=== PATIENT | female | born 1970 | race Caucasian/White ===

== ENCOUNTER → 2016-10-22 | Outpatient (CLI) | payer MEDICAID ==
[~2016-10-22] MED LIST: ALBU2.5V4 IH; ALBU8.5H2 IH; ALBU8.5H4 IH; ALPR-557 PO; AMIT50TA3 PO; AMLO5TAB4 PO; ASP81TEC PO; BSP10T; BSP10T PO; BUDE10.2 INH; CETI10TA17 PO; CLON0.1T PO; CPR500T PO; CYCL10TA9 PO; FAMO20TA5 PO; FLUT1DIS27 IH; HCTZ12.5T GT; HYDR118S10 PO; HYOS0.1216 PO; IBUP-30 PO; KCL20TCR PO; LISI1TAB10; LISI20TA PO; LISI40TA PO; LORA10TA7 PO; MELO-195 PO; MONT10TA24 PO; OMEP20CA12 PO; OXYC-471 PO; PANT40TA3 PO; PNT40TEC PO; PRED20TA PO; QUET200T2 PO; QUET300T3; RT-ALBUINH IH; RT-ALBUINH INH; TOPI50TA13 PO; TRAZ100T92 PO; VENL75CA93 PO; VNL75T; VNL75T PO
[2016-10-22 08:54] LABS: ALBUMIN 4.1 G/DL (3.2-4.5); BILIRUBIN,TOTAL 0.4 MG/DL (0.1-1.0); CALCIUM 9.2 MG/DL (8.5-10.1); CREATININE SERUM 1.07 MG/DL (0.60-1.30); POTASSIUM 4.3 MMOL/L (3.6-5.0); TOTAL PROTEIN 6.4 G/DL (6.4-8.2)
== END ==
LOC: LAB 08:22
PROVIDERS: ATTEND Physician Assistant
DX: I25.10 Atherosclerotic heart disease of native coronary artery without angina pectoris (principal); I10 Essential (primary) hypertension; E78.2 Mixed hyperlipidemia
CPT/HCPCS: 36415; 80053; 80061

== ENCOUNTER 2016-11-20 12:34 | Emergency (ER) | payer MEDICAID ==
[~2016-11-20] VITALS: Ht 165.1 cm; Wt 65.8 kg
[~2016-11-20 12:34] MED LIST changes: -LISI1TAB10
--- NOTE | 2016-11-20 12:57 | ED General ---
General Stated Complaint: AMS Source of Information: Patient, EMS History of Present Illness Time Seen by Provider: 12:45 Initial Comments The patient is a 46-year-old white female who had been diagnosed as hypertensive by [facility]. She had apparently taken her first dose of lisinopril this morning and now is noted to have decreased level of consciousness, hypertension and slow mentation. She did respond to glabellar noxious stimuli and was able then to tell me that today was . Timing/Duration: 4-6 Hours Associated Systoms: Weakness Allergies and Home Medications Allergies Coded Allergies: nicotine (Unverified Allergy, Intermediate, HIVES, ITCHING, RASH AROUND PATCH, 05/30/10) Penicillins (Verified Allergy, Unknown, 10/16/09) acetaminophen (Verified Allergy, Unknown, 10/16/09) bupropion (Verified Allergy, Unknown, 10/16/09) cephalexin (Verified Allergy, Unknown, 10/16/09) codeine (Verified Allergy, Unknown, 10/16/09) morphine (Verified Allergy, Unknown, 11/20/16) sertraline (Verified Allergy, Unknown, 10/16/09) Home Medications Albuterol Sulfate 8.5 Gm Hfa.aer.ad 2 PUFF INH Q4H PRN PRN SHORTNESS OF BREATH ( Reported) Albuterol Sulfate 2.5 Mg/3 Ml Vial.neb 2.5 MG IH Q6H PRN PRN SHORTNESS OF BREATH (Reported) Amlodipine Besylate 5 Mg Tablet #30 5 MG PO DAILY Prescribed by: ERROL MARCOS on 01/18/16 1217 Budesonide/Formoterol Fumarate 10.2 Gm Hfa.aer.ad 2 PUFF INH BID (Reported) Cetirizine HCl 10 Mg Tablet 10 MG PO DAILY PRN PRN ALLERGIES (Reported) Cyclobenzaprine HCl 10 Mg Tablet 10 MG PO TID (Reported) Ibuprofen 200 Mg Tablet 800 MG PO TID PRN PRN PAIN (Reported) TAKES 4 (200MG) TABLETS Lisinopril 40 Mg Tablet 20 MG PO DAILY (Reported) TAKES 1/2 (40MG) TABLET Lisinopril/Hydrochlorothiazide 1 Each Tablet #30 (Reported) Montelukast Sodium 10 Mg Tablet 10 MG PO DAILY (Reported) Oxycodone HCl/Acetaminophen 1 Each Tablet 1 TAB PO BID (Reported) Pantoprazole Sodium 40 Mg Tablet.dr 40 MG PO DAILY (Reported) Topiramate 50 Mg Tablet 50 MG PO DAILY (Reported) Trazodone HCl 100 Mg Tablet 100 MG PO HS PRN PRN SLEEP (Reported) Venlafaxine HCl 75 Mg Cap.er.24h 75 MG PO DAILY (Reported) TAKE WITH FOOD Constitutional: see HPI EENTM: no symptoms reported Respiratory: no symptoms reported Cardiovascular: no symptoms reported Gastrointestinal: no symptoms reported Genitourinary: no symptoms reported Musculoskeletal: no symptoms reported Skin: no symptoms reported Psychiatric/Neurological: No Symptoms Reported Past Fdzmkmd-Ixzkwf-Psjvhc Hx Immunizations Up To Date Tetanus Booster (TDap): Unknown Date of Pneumonia Vaccine: Sep 21, 2013 Date of Influenza Vaccine: Jun 27, 2014 Seasonal Allergies Seasonal Allergies: No Surgeries HX Surgeries: Yes (CARPAL TUNNEL x2, R Knee scope, heart cath x1) Surgeries: Section, Hysterectomy, Orthopedic, Tubal Ligation Respiratory Hx Respiratory Disorders: Yes (COPD) Cardiovascular Hx Cardiac Disorders: Yes (IRR HR) Neurological Hx Neurological Disorders: Yes (TREMORS) Reproductive System Hx Reproductive Disorders: No Genitourinary Hx Genitourinary Disorders: No Gastrointestinal Hx Gastrointestinal Disorders: Yes (EASILY CONSTIPATED) Gastrointestinal Disorders: Gastroesophageal Reflux Musculoskeletal Hx Musculoskeletal Disorders: Yes (SCOLIOSIS) Endocrine Hx Endocrine Disorders: No HEENT HX ENT Disorders: Yes Cancer Hx Cancer: No Psychosocial Hx Psychiatric Problems: Yes Behavioral Health Disorders: Anxiety, Depression Integumentary HX Skin/Integumentary Disorder: No Blood Transfusions Hx Blood Disorders: Yes (HEP C) Family Medical History Significant Family History: No Pertinent Family Hx Family Medial History: Diabetes mellitus 19 MOTHER FH: COPD (chronic obstructive pulmonary disease) 19 MOTHER FH: cancer 19 FATHER FH: depression 19 MOTHER Hypertension 19 MOTHER Hypoglycemia 19 FATHER Physical Exam Vital Signs Vital Sign - Last 12Hours 11/20/16 12:34 Temp 98.5 Pulse 65 Resp 16 B/P 58/35 Pulse Ox 98 O2 Delivery Nasal Cannula O2 Flow Rate 2 Capillary Refill : General Appearance: Other Eyes: Bilateral Eye Normal Inspection HEENT: Normal ENT Inspection Neck: Normal Inspection Respiratory: Chest Non Tender Lungs Clear Normal Breath Sounds No Accessory Muscle Use No Respiratory Distress Cardiovascular: Regular Rate, Rhythm No Edema No Gallop No JVD No Murmur Normal Peripheral Pulses Gastrointestinal: Normal Bowel Sounds No Organomegaly No Pulsatile Mass Non Tender Soft Back: Normal Inspection No CVA Tenderness No Vertebral Tenderness Extremity: Normal Capillary Refill Normal Inspection Normal Range of Motion Non Tender No Calf Tenderness No Pedal Edema Neurologic/Psychiatric: Alert Oriented x3 No Motor/Sensory Deficits Normal Mood/Affect Skin: Normal Color Warm/Dry Lymphatic: No Adenopathy Comments There is avulsion of the right great nail after the patient apparently dorsiflexed her acrylic nail and caused a laceration at the ulnar border of the thumb nail and across the cuticle. Progress/Results/Core Measures Results/Orders Lab Results Laboratory Tests Test 11/20/16 12:44 11/20/16 13:05 11/20/16 15:17 Range/Units Glucometer 103 70-110 MG/DL Acetaminophen Level < 10 L 10-30 UG/ML Alanine Aminotransferase (ALT/SGPT) 10 0-55 U/L Albumin 4.4 3.2-4.5 G/DL Alkaline Phosphatase 114 40-136 U/L Anion Gap 13 5-14 MMOL/L Aspartate Amino Transf (AST/SGOT) 14 5-34 U/L BUN/Creatinine Ratio 12 Basophils # (Auto) 0.1 0.0-0.1 10^3/uL Basophils (%) (Auto) 1 0-10 % Blood Urea Nitrogen 13 7-18 MG/DL Calcium Level 9.6 8.5-10.1 MG/DL Carbon Dioxide Level 20 L 21-32 MMOL/L Chloride Level 106 98-107 MMOL/L Creatinine 1.08 0.60-1.30 MG/DL Eosinophils # (Auto) 0.3 0.0-0.3 10^3/uL Eosinophils (%) (Auto) 3 0-10 % Estimat Glomerular Filtration Rate 54 Glucose Level 103 70-105 MG/DL Hematocrit 42 35-52 % Hemoglobin 14.3 11.5-16.0 G/DL Lymphocytes # (Auto) 3.5 1.0-4.0 X 10^3 Lymphocytes (%) (Auto) 41 12-44 % Mean Corpuscular Hemoglobin 32 25-34 PG Mean Corpuscular Hemoglobin Concent 34 32-36 G/DL Mean Corpuscular Volume 95 80-99 FL Mean Platelet Volume 11.2 H 7.4-10.4 FL Monocytes # (Auto) 0.6 0.0-1.0 X 10^3 Monocytes (%) (Auto) 7 0-12 % Neutrophils # (Auto) 4.0 1.8-7.8 X 10^3 Neutrophils (%) (Auto) 48 42-75 % Platelet Count 188 130-400 10^3/uL Potassium Level 4.5 3.6-5.0 MMOL/L Red Blood Count 4.43 4.35-5.85 10^6/uL Red Cell Distribution Width 12.6 10.0-14.5 % Serum Alcohol < 10 <10 MG/DL Sodium Level 139 135-145 MMOL/L Total Bilirubin 0.5 0.1-1.0 MG/DL Total Protein 6.9 6.4-8.2 G/DL Troponin I < 0.30 <0.30 NG/ML White Blood Count 8.5 4.3-11.0 10^3/uL Urine Bacteria NEGATIVE /HPF Urine Bilirubin NEGATIVE NEGATIVE Urine Casts NONE /LPF Urine Clarity CLEAR Urine Color YELLOW Urine Crystals NONE /LPF Urine Culture Indicated NO Urine Glucose (UA) NEGATIVE NEGATIVE Urine Ketones NEGATIVE NEGATIVE Urine Leukocyte Esterase NEGATIVE NEGATIVE Urine Mucus NEGATIVE /LPF Urine Nitrite NEGATIVE NEGATIVE Urine Protein 2+ H NEGATIVE Urine RBC 0-2 /HPF Urine RBC (Auto) 1+ H NEGATIVE Urine Specific Stevens 1.010 L 1.016-1.022 Urine Squamous Epithelial Cells 0-2 /HPF Urine Urobilinogen NORMAL NORMAL MG/DL Urine WBC 2-5 /HPF Urine pH 6 5-9 My Orders Orders-CHRISTY DOTY MD Ekg Tracing (11/20/16 12:51) Acetaminophen (11/20/16 12:51) Alcohol (11/20/16 12:51) Cbc With Automated Diff (11/20/16 12:51) Comprehensive Metabolic Panel (11/20/16 12:51) Troponin I (11/20/16 12:51) Ua Culture If Indicated (11/20/16 12:51) Chest 1 View, Ap/Pa Only (11/20/16 12:51) Ns Iv 1000 Ml (Sodium Chloride 0.9%) (11/20/16 13:15) Accucheck Stat ONCE (11/20/16 14:50) Vital Signs/I&O Vital Sign - Last 12Hours 11/20/16 11/20/16 11/20/16 12:34 12:58 14:44 Temp 98.5 Pulse 65 62 60 Resp 16 18 18 B/P 58/35 100/43 109/64 Pulse Ox 98 98 96 O2 Delivery Nasal Cannula Nasal Cannula Room Air O2 Flow Rate 2 2 Departure Communication Progress Notes 1625. The patient is now fully alert and oriented. Her laboratories looked unremarkable. She was walked to the end of the emergency room and back without difficulty. Impression Impression: Primary Impression: syncopal episode Disposition: HOME, SELF-CARE Condition: Improved Departure-Patient Inst. Decision time for Depature: 16:24 Referrals: JUSTO HOROWITZ DO (PCP/Family) Primary Care Physician Patient Instructions: Syncope (Fainting) (DC) Add. Discharge Instructions: Stop the lisinopril plus hydrochlorothiazide. Take your usual dose which I believe to be 10 mg of lisinopril in the morning and discuss future dosing with your provider CHRISTY DOTY MD Nov 20, 2016 12:57
[2016-11-20 12:58] VITALS: BP 100/43
[2016-11-20 13:13] LABS: BASOPHILS # (AUTO) 0.1 10^3/uL (0.0-0.1); BASOPHILS % (AUTO) 1 % (0-10); EOSINOPHILS # (AUTO) 0.3 10^3/uL (0.0-0.3); EOSINOPHILS % (AUTO) 3 % (0-10); LYMPHOCYTES # (AUTO) 3.5 X 10^3 (1.0-4.0); LYMPHOCYTES % (AUTO) 41 % (12-44); MEAN CORPUSCULAR HEMOGLOBIN 32 PG (25-34); MEAN CORPUSCULAR HGB CONC 34 G/DL (32-36); MEAN CORPUSCULAR VOLUME 95 FL (80-99); MEAN PLATELET VOLUME 11.2 FL (7.4-10.4); MONOCYTES # (AUTO) 0.6 X 10^3 (0.0-1.0); MONOCYTES % (AUTO) 7 % (0-12); NEUTROPHILS % (AUTO) 48 % (42-75); PLATELET COUNT 188 10^3/uL (130-400); RED BLOOD COUNT 4.43 10^6/uL (4.35-5.85); RED CELL DISTRIBUTION WIDTH 12.6 % (10.0-14.5); WHITE BLOOD COUNT 8.5 10^3/uL (4.3-11.0)
[2016-11-20] MEDS ORDERED: LISI1TAB10 (13:15)
[2016-11-20] MEDS ORDERED: NS IV 1000 ML 1,000 ML IV SCH (13:15)
[2016-11-20 13:47] LABS: ALANINE AMINOTRANSFERASE 10 U/L (0-55); ALBUMIN 4.4 G/DL (3.2-4.5); ANION GAP 13 MMOL/L (5-14); ASPARTATE AMINO TRANSFERASE 14 U/L (5-34); BILIRUBIN,TOTAL 0.5 MG/DL (0.1-1.0); BLOOD UREA NITROGEN 13 MG/DL (7-18); BUN/CREATININE RATIO 12; CALCIUM 9.6 MG/DL (8.5-10.1); CARBON DIOXIDE 20 MMOL/L (21-32); CHLORIDE 106 MMOL/L (98-107); CREATININE SERUM 1.08 MG/DL (0.60-1.30); GFR ESTIMATED 54; GLUCOSE 103 MG/DL (70-105); POTASSIUM 4.5 MMOL/L (3.6-5.0); SODIUM 139 MMOL/L (135-145); TOTAL PROTEIN 6.9 G/DL (6.4-8.2)
[2016-11-20 13:52] LABS: ACETAMINOPHEN < 10 UG/ML (10-30); ALCOHOL < 10 MG/DL (<10)
[2016-11-20 13:53] LABS: TROPONIN I < 0.30 NG/ML (<0.30)
--- NOTE | 2016-11-20 14:04 | Diagnostic Imaging Report ---
Portable erect AP chest at 1:43 p.m. INDICATION: Altered mental status. FINDINGS: The heart size is within normal limits and stable when compared to 01/17/2016. The lungs remain clear. There is still no sign of failure, pneumonia or pleural effusion. The mediastinum is not widened. The dextroscoliosis of the upper thoracic spine and the orthopedic hardware overlying the cervicothoracic junction seen previously is again evident and no different. There is no acute bony abnormality appreciated. IMPRESSION: There is no evidence for active disease. When compared to the previous study, there has been no significant change. Dictated by: Dictated on workstation # [id number]
[2016-11-20 14:44] VITALS: BP_SYST 109; BP_SYST 98; BP_DIAS 64
[2016-11-20 15:31] LABS: BILIRUBIN,URINE NEGATIVE (NEGATIVE); KETONES,URINE NEGATIVE (NEGATIVE); LEUKOCYTE ESTERASE ,URINE NEGATIVE (NEGATIVE); NITRITE,URINE NEGATIVE (NEGATIVE); PH,URINE 6 (5-9); PROTEIN,URINE 2+ (NEGATIVE); UROBILINOGEN,URINE NORMAL (NORMAL)
[2016-11-20 16:03] LABS: SQUAMOUS EPITHELIAL CELL,UR 0-2 /HPF
[2016-11-20 16:37] VITALS: BP 126/69
== END 2016-11-20 16:37 | disposition home or self-care (01) ==
LOC: EDUNIT# 12:34 → ER 12:36
DX: R55 Syncope and collapse (principal); I10 Essential (primary) hypertension; J44.9 Chronic obstructive pulmonary disease, unspecified; Z79.899 Other long term (current) drug therapy
CPT/HCPCS: 36415; 71010; 80053; 80320; 80329; 81000; 82962; 84484; 85025; 93005; 96360

== ENCOUNTER → 2017-02-26 | Outpatient (CLI) | payer MEDICAID ==
[~2017-02-26] MED LIST changes: +LISI1TAB10
--- NOTE | 2017-02-27 17:53 | Diagnostic Imaging Report ---
Bilateral screening mammogram. The current study was also evaluated with a Computer Aided Detection (CAD) system. INDICATION: Screening. No current complaints stated on the questionnaire. COMPARISON: 12/14/13 FINDINGS: The breasts are composed of heterogeneously dense parenchyma which may decrease mammographic sensitivity. There is no mass, architectural distortion or suspicious cluster of calcification. Benign-appearing calcifications are seen. Allowing for technique and positional differences, no suspicious change is seen. IMPRESSION: No significant change. ACR BI-RADS Category 2: Benign findings. Result letter will be mailed to the patient. Note: At least 10% of breast cancer is not imaged by mammography. Dictated on workstation # [id number]
== END ==
LOC: RAD 13:06
PROVIDERS: ATTEND Nurse Practitioner Adult Health
DX: Z12.31 Encounter for screening mammogram for malignant neoplasm of breast (principal)
CPT/HCPCS: 77067

== ENCOUNTER 2017-12-07 10:59 | Emergency (ER) | payer MEDICAID ==
[~2017-12-07] VITALS: Ht 167.6 cm; Wt 63.8 kg
[2017-12-07] MEDS ORDERED: ONDANSETRON 4 MG/2 ML (SDV) Z0FRAN IVP ONE (11:15)
[2017-12-07] MEDS ORDERED: hydrALAZINE (APESOLINE) 20 MG/ML VIAL IV ONE (11:15)
--- OUTSIDE RECORDS SUMMARY | 2017-12-07 11:20 | XMS REPORT ---
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 Active 16337654 Problem Menopause Z78.0 Active 323691895 Problem Postmenopausal HRT (hormone replacement therapy) Z79.890 Active 65570743 Problem COPD with acute exacerbation J44.1 Active 604269736 Problem Anxiety F41.9 Active 62778502 Problem Chest pain R07.9 Active 95426528 Problem Nausea R11.0 Active 989630961 Problem Chronic headaches R51 Active 172132116 Problem Environmental allergies Z91.09 Active 465380671 Problem Insomnia G47.00 Active 593687578 Problem Hepatitis C B19.20 Active 71464200 Problem Depression F32.9 Active 37854873 Problem Chronic pain G89.29 Active 13967147 Problem GERD (gastroesophageal reflux disease) K21.9 Active 346690745 ALLERGIES No Information SOCIAL HISTORY Never Assessed PLAN OF CARE VITAL SIGNS MEDICATIONS Medication Instructions Dosage Frequency Start Date End Date Duration Status Percocet 5-325 MG Orally 2 times a day 1 tablet as needed 12h January, 28 days Active RESULTS No Results PROCEDURES No Known procedures IMMUNIZATIONS No Known Immunizations MEDICAL (GENERAL) HISTORY Type Description Date Medical History hypertension Medical History chronic obstructive pulmonary disease (COPD) Medical History hepatitis C Medical History hyperlipidemia Medical History bipolar disorder Medical History PTSD Medical History hx of polysubstance abuse Medical History mood disorder Medical History allergic rhinitis Medical History neck pain Medical History chronic renal insufficiency Medical History degeneratie disc disease throughout spine Medical History chronic pain from DDD--sees Dr. Bullock Medical History CAD Medical History History of cervical cancer Surgical History tubal ligation 1992 Surgical History arthroscopic knee surgery; right 2012 Surgical History oopherectomy 2008 Surgical History section 1992 Surgical History tendon repair R thumb 1998 Surgical History carpal tunnel release 1998,2014 Surgical History hysterectomy; partial 1998 Surgical History C3-C7 fusion w/ discectomy-Benedict Hamm 01/2015 Surgical History Heart Cath 01/18/16 Hospitalization History surgeries Hospitalization History chest pain 01/17/16
--- NOTE | 2017-12-07 11:21 | ED Headache ---
General Stated Complaint: N/V/HTN Source: patient Exam Limitations: no limitations History of Present Illness Date Seen by Provider: Dec 07, 2017 Time Seen by Provider: 11:20 Initial Comments ER per EMS from home with reports of nausea vomiting hypertension and headache. The headache is bilateral frontal and in the occiput as well. She awakened this morning with this. She checked her blood pressure and it was very high. She took her 10 mg metoprolol dose then called EMS. She did take one extra strength Tylenol at home this morning at 9 AM. She has a history of bradycardia followed by Dr. Castillo which is stable. Her heart catheterization 2016 joint mild-to- moderate coronary artery disease. She denies chest pain or shortness of breath. Severity/Quality: moderate Location: frontal Associated Symptoms: nausea/vomiting Allergies and Home Medications Allergies Coded Allergies: nicotine (Unverified Allergy, Intermediate, HIVES, ITCHING, RASH AROUND PATCH, 05/30/10) Penicillins (Verified Allergy, Unknown, 10/16/09) acetaminophen (Verified Allergy, Unknown, 10/16/09) bupropion (Verified Allergy, Unknown, 10/16/09) cephalexin (Verified Allergy, Unknown, 10/16/09) codeine (Verified Allergy, Unknown, 10/16/09) morphine (Verified Allergy, Unknown, 11/20/16) sertraline (Verified Allergy, Unknown, 10/16/09) Home Medications Albuterol Sulfate 8.5 Gm Hfa.aer.ad, 2 PUFF INH Q4H PRN for SHORTNESS OF BREATH, (Reported) Albuterol Sulfate 2.5 Mg/3 Ml Vial.neb, 2.5 MG IH Q6H PRN for SHORTNESS OF BREATH, (Reported) Amlodipine Besylate 5 Mg Tablet, 5 MG PO DAILY Prescribed by: ERROL CASTILLO on 01/18/16 1217 Budesonide/Formoterol Fumarate 10.2 Gm Hfa.aer.ad, 2 PUFF INH BID, (Reported) Cetirizine HCl 10 Mg Tablet, 10 MG PO DAILY PRN for ALLERGIES, (Reported) Cyclobenzaprine HCl 10 Mg Tablet, 10 MG PO TID, (Reported) Ibuprofen 200 Mg Tablet, 800 MG PO TID PRN for PAIN, (Reported) TAKES 4 (200MG) TABLETS Lisinopril 40 Mg Tablet, 20 MG PO DAILY, (Reported) TAKES 1/2 (40MG) TABLET Montelukast Sodium 10 Mg Tablet, 10 MG PO DAILY, (Reported) Oxycodone HCl/Acetaminophen 1 Each Tablet, 1 TAB PO BID, (Reported) Pantoprazole Sodium 40 Mg Tablet.dr, 40 MG PO DAILY, (Reported) Topiramate 50 Mg Tablet, 50 MG PO DAILY, (Reported) Trazodone HCl 100 Mg Tablet, 100 MG PO HS PRN for SLEEP, (Reported) Venlafaxine HCl 75 Mg Cap.er.24h, 75 MG PO DAILY, (Reported) TAKE WITH FOOD Patient Home Medication List Home Medication List Reviewed: Yes Constitutional: see HPI Eyes: No Symptoms Reported Ears, Nose, Mouth, Throat: no symptoms reported Respiratory: no symptoms reported Cardiovascular: no symptoms reported Genitourinary: no symptoms reported Musculoskeletal: no symptoms reported Skin: no symptoms reported Psychiatric/Neurological: Headache Past Jlolrue-Fsptbi-Bdjuwo Hx Patient Social History Recent Hopitalizations: Yes Immunizations Up To Date Tetanus Booster (TDap): Unknown Date of Pneumonia Vaccine: Sep 21, 2013 Date of Influenza Vaccine: Jun 27, 2014 Seasonal Allergies Seasonal Allergies: No Surgeries History of Surgeries: Yes (CARPAL TUNNEL x2, R Knee scope, heart cath x1) Surgeries: Section, Hysterectomy, Orthopedic, Tubal Ligation Respiratory History of Respiratory Disorde: Yes (COPD) Currently Using CPAP: No Currently Using BIPAP: No Cardiovascular History of Cardiac Disorders: Yes (IRR HR) Neurological History of Neurological Disord: Yes (TREMORS) Reproductive System Hx Reproductive Disorders: No Gastrointestinal History of Gastrointestinal Di: Yes (EASILY CONSTIPATED) Gastrointestinal Disorders: Gastroesophageal Reflux Musculoskeletal History of Musculoskeletal Dis: Yes (SCOLIOSIS) Endocrine History of Endocrine Disorders: No Cancer History of Cancer: No Psychosocial History of Psychiatric Problem: Yes Behavioral Health Disorders: Anxiety, Depression Integumentary History of Skin or Integumenta: No Blood Transfusions History of Blood Disorders: Yes (HEP C) Family Medical History Significant Family History: No Pertinent Family Hx Family Medial History: Diabetes mellitus 19 MOTHER FH: COPD (chronic obstructive pulmonary disease) 19 MOTHER FH: cancer 19 FATHER FH: depression 19 MOTHER Hypertension 19 MOTHER Hypoglycemia 19 FATHER Physical Exam Vital Signs Vital Signs - First Documented 12/07/17 11:15 Temp 97.5 Pulse 39 Resp 16 B/P (MAP) 204/105 (138) Pulse Ox 98 O2 Delivery Room Air Capillary Refill : General Appearance: WD/WN, no apparent distress HEENT: PERRL/EOMI, normal ENT inspection Neck: non-tender, full range of motion Cardiovascular: no murmur, bradycardia (sinus) Respiratory: normal breath sounds, no respiratory distress, no accessory muscle use Extremities: normal range of motion, non-tender Psychiatric: alert, oriented x 3 Crainal Nerves: normal hearing, normal speech, PERRL Skin: normal color, warm/dry Progress/Results/Core Measures Results/Orders Lab Results Laboratory Tests Test 12/07/17 11:11 12/07/17 11:20 Range/Units White Blood Count 6.9 4.3-11.0 10^3/uL Red Blood Count 4.34 L 4.35-5.85 10^6/uL Hemoglobin 14.2 11.5-16.0 G/DL Hematocrit 41 35-52 % Mean Corpuscular Volume 95 80-99 FL Mean Corpuscular Hemoglobin 33 25-34 PG Mean Corpuscular Hemoglobin Concent 35 32-36 G/DL Red Cell Distribution Width 13.0 10.0-14.5 % Platelet Count 154 130-400 10^3/uL Mean Platelet Volume 11.1 H 7.4-10.4 FL Neutrophils (%) (Auto) 52 42-75 % Lymphocytes (%) (Auto) 34 12-44 % Monocytes (%) (Auto) 8 0-12 % Eosinophils (%) (Auto) 5 0-10 % Basophils (%) (Auto) 1 0-10 % Neutrophils # (Auto) 3.6 1.8-7.8 X 10^3 Lymphocytes # (Auto) 2.3 1.0-4.0 X 10^3 Monocytes # (Auto) 0.6 0.0-1.0 X 10^3 Eosinophils # (Auto) 0.4 H 0.0-0.3 10^3/uL Basophils # (Auto) 0.0 0.0-0.1 10^3/uL Prothrombin Time 13.4 12.2-14.7 SEC INR Comment 1.0 0.8-1.4 Sodium Level 135 135-145 MMOL/L Potassium Level 5.2 H 3.6-5.0 MMOL/L Chloride Level 102 98-107 MMOL/L Carbon Dioxide Level 26 21-32 MMOL/L Anion Gap 7 5-14 MMOL/L Blood Urea Nitrogen 9 7-18 MG/DL Creatinine 0.81 0.60-1.30 MG/DL Estimat Glomerular Filtration Rate > 60 BUN/Creatinine Ratio 11 Glucose Level 94 70-105 MG/DL Calcium Level 9.2 8.5-10.1 MG/DL Magnesium Level 2.2 1.8-2.4 MG/DL Total Bilirubin 0.9 0.1-1.0 MG/DL Aspartate Amino Transf (AST/SGOT) 19 5-34 U/L Alanine Aminotransferase (ALT/SGPT) 12 0-55 U/L Alkaline Phosphatase 80 40-136 U/L Troponin I < 0.30 <0.30 NG/ML Total Protein 6.8 6.4-8.2 GM/DL Albumin 3.9 3.2-4.5 GM/DL Urine Color YELLOW Urine Clarity CLEAR Urine pH 7 5-9 Urine Specific [place] 1.010 L 1.016-1.022 Urine Protein NEGATIVE NEGATIVE Urine Glucose (UA) NEGATIVE NEGATIVE Urine Ketones NEGATIVE NEGATIVE Urine Nitrite NEGATIVE NEGATIVE Urine Bilirubin NEGATIVE NEGATIVE Urine Urobilinogen NORMAL NORMAL MG/DL Urine Leukocyte Esterase NEGATIVE NEGATIVE Urine RBC (Auto) NEGATIVE NEGATIVE Urine RBC 2-5 H /HPF Urine WBC NONE /HPF Urine Crystals NONE /LPF Urine Bacteria NEGATIVE /HPF Urine Casts NONE /LPF Urine Mucus NEGATIVE /LPF Urine Culture Indicated NO Urine Opiates Screen NEGATIVE NEGATIVE Urine Oxycodone Screen POSITIVE H NEGATIVE Urine Methadone Screen NEGATIVE NEGATIVE Urine Propoxyphene Screen NEGATIVE NEGATIVE Urine Barbiturates Screen NEGATIVE NEGATIVE Ur Tricyclic Antidepressants Screen NEGATIVE NEGATIVE Urine Phencyclidine Screen NEGATIVE NEGATIVE Urine Amphetamines Screen NEGATIVE NEGATIVE Urine Methamphetamines Screen NEGATIVE NEGATIVE Urine Benzodiazepines Screen POSITIVE H NEGATIVE Urine Cocaine Screen NEGATIVE NEGATIVE Urine Cannabinoids Screen NEGATIVE NEGATIVE My Orders Orders - JUSTIN MADRIGAL APRN Cbc With Automated Diff (12/07/17 11:08) Comprehensive Metabolic Panel (12/07/17 11:08) Ua Culture If Indicated (12/07/17 11:08) Magnesium (12/07/17 11:08) Protime With Inr (12/07/17 11:08) Urine Bedside (12/07/17 11:08) Drug Screen Stat (Urine) (12/07/17 11:08) Chest 1 View, Ap/Pa Only (12/07/17 11:08) Troponin I (12/07/17 11:08) Ct Head Wo (12/07/17 11:13) Ondansetron Injection (Zofran Injectio (12/07/17 11:15) Hydralazine Injection (Apresoline Inject (12/07/17 11:15) Medications Given in ED Current Medications Medications Dose Ordered Sig/Tamara Route Start Time Stop Time Status Last Admin Dose Admin Hydralazine HCl 10 mg ONCE ONCE IV 12/07/17 11:15 12/07/17 11:16 DC 12/07/17 11:31 10 MG Ondansetron HCl 8 mg ONCE ONCE IVP 12/07/17 11:15 12/07/17 11:16 DC 12/07/17 11:31 8 MG Vital Signs/I&O Vital Sign - Last 12Hours 12/07/17 11:15 Temp 97.5 Pulse 39 Resp 16 B/P (MAP) 204/105 (138) Pulse Ox 98 O2 Delivery Room Air Progress Note : Progress Note NAME: JAYE BAUTISTA Kendrick [facility] REC#: [id number] PT STATUS: REG ER : 1970 PHYSICIAN: JUSTIN MADRIGAL APRN ADMIT DATE: 12/07/17/ER Draft Date of Exam:12/07/17 CT HEAD WO CLINICAL INDICATION: Patient with nausea, vomiting and high blood pressure. EXAM: Axial CT scan of brain performed without IV contrast. COMPARISON: Head CT without IV contrast dated 10/21/2013. FINDINGS: There is no evidence of acute cerebral infarct, intracranial hemorrhage, or gross mass effect. The brain parenchymal volume appears appropriate for patient's age. There is normal gomez-white matter distinction. There is no significant midline shift or herniation. There is no evidence of hydrocephalus. The basal cisterns are unremarkable. The skull, extracranial soft tissue, and orbits are unremarkable. The paranasal sinuses are unremarkable. Temporal bones show no significant abnormality. IMPRESSION: Unremarkable CT scan of the brain. Dictated on workstation # [id number] Dict: 12/07/17 1146 Trans: 12/07/17 1149 [id number] Interpreted by: LISA FRANKLIN MD Electronically signed by: Diagnostic Imaging Diagonstic Imaging: Xray Comments NAME: JAYE BAUTISTA [employer] [facility] REC#: [id number] PT STATUS: REG ER : 1970 PHYSICIAN: JUSTIN MADRIGAL APRN ADMIT DATE: 12/07/17/ER Draft Date of Exam:12/07/17 CHEST 1 VIEW, AP/PA ONLY INDICATION: Shortness of breath and chest pain. Time of exam: 11:19 AM Comparison is made to prior study 11/20/2016. A right convexity thoracic scoliotic curvature is noted. The heart size is stable. Lungs are clear. Pulmonary vascularity is normal. No infiltrate, effusion or pneumothorax is seen. Postop changes of lower cervical ACDF is again noted. IMPRESSION: Stable chest. No acute cardiopulmonary process is detected. Dictated on workstation # [id number] Dict: 12/07/17 1152 Trans: 12/07/17 1157 JOSE [id number] Interpreted by: ANN SEN MD Electronically signed by: Departure Communication (Admissions) Progress Notes 1215- brief unresponsive episode and CT but was awakened with a sternal rub. Labs are unremarkable. On arrival her systolic pressure was 220 heart rate of 40 -44 sinus. She is given 10 mg IV hydralazine, with reduction of blood pressure 156/82, heart rate still 45-50 sinus. Complains of persistent headaches so we will treat the headache. Dr. Castillo has stopped by the ER to see the patient. They have made an appointment to see him tomorrow at 11 AM. He will stop the metoprolol, replace it with Coreg 3.125 mg by mouth twice a day, lisinopril 2.5 mg daily, HCTZ 25 mg daily. His PA KIAH will call these in to her pharmacy of choice Impression Impression: Primary Impression: Hypertensive emergency Disposition: HOME, SELF-CARE Condition: Stable Departure-Patient Inst. Decision time for Depature: 12:17 Referrals: MICHAEL ALMEIDA (PCP) Primary Care Physician JUSTO HOROWITZ DO (Family) Primary Care Physician ERROL CASTILLO MD Patient Instructions: High Blood Pressure Emergencies Add. Discharge Instructions: 1. YourE scheduled to see Dr. Castillo tomorrow morning at 11 AM. Take the new medications at about 8 AM. Stop the metoprolol and start new medication called carvedilol, lisinopril, HCTZ. Copy Copies To 1: ERROL CASTILLO MD, PETER J APRN Dec 07, 2017 11:21
--- OUTSIDE RECORDS SUMMARY | 2017-12-07 11:22 | XMS REPORT ---
Author Author MICHAEL ALMEIDA 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 Active 56213850 Problem Menopause Z78.0 Active 900104598 Problem Postmenopausal HRT (hormone replacement therapy) Z79.890 Active 01083815 Problem COPD with acute exacerbation J44.1 Active 383476561 Problem Anxiety F41.9 Active 93300205 Problem Chest pain R07.9 Active 51236712 Problem Nausea R11.0 Active 210260145 Problem Chronic headaches R51 Active 998401346 Problem Environmental allergies Z91.09 Active 415263310 Problem Insomnia G47.00 Active 302690910 Problem Hepatitis C B19.20 Active 42358220 Problem Depression F32.9 Active 40304616 Problem Chronic pain G89.29 Active 35500892 Problem GERD (gastroesophageal reflux disease) K21.9 Active 693731054 ALLERGIES Substance Reaction Event Type Date Status Zoloft hypotension Drug Allergy January, Active Wellbutrin jittery Drug Allergy January, Active Tramadol HCl anaphylaxis Drug Allergy January, Active Tetracycline HCl rash Drug Allergy January, Active Sulfamethoxazole-Trimethoprim Unknown Drug Allergy January, Active Penicillin V Potassium rash Drug Allergy January, Active Morphine Sulfate anaphylaxis Drug Allergy January, Active Doxycycline Hyclate rash Drug Allergy January, Active Wasp/hornet/bee stings anaphylaxis Non Drug Allergy January, Active SOCIAL HISTORY Never Assessed PLAN OF CARE Activity Details Follow Up 3 Months Reason:[facility] VITAL SIGNS Height 65.2 in 2017-02-11 Weight 148.8 lbs 2017-02-11 Temperature 98.1 degrees Fahrenheit 2017-02-11 Heart Rate 72 bpm 2017-02-11 Respiratory Rate 18 2017-02-11 BMI 24.61 kg/m2 2017-02-11 Blood pressure systolic 120 mmHg 2017-02-11 Blood pressure diastolic 78 mmHg 2017-02-11 MEDICATIONS Medication Instructions Dosage Frequency Start Date End Date Duration Status HydrOXYzine HCl 25 MG Orally every 8 hrs 1 tablet as needed 8h January, Active ProAir HFA 108 (90 Base) MCG/ACT Inhalation every 4 hrs 2 puffs as needed 4h Mar, Active Crestor 10 MG Orally Once a day 1 tablet 24h Active Venlafaxine HCl ER 75MG TAKE ONE CAPSULE BY MOUTH WITH FOOD ONCE DAILY 30 Active Famotidine 20mg Orally 2 times a day TAKE ONE TABLET BY MOUTH TWICE DAILY 12h 30 Active Flonase 50 mcg/act 1 sprays by Nasal route 2 times per day in each nostril Nov, Active Cetirizine HCl 10 MG Orally Once a day 1 tablet as needed 24h Active Pantoprazole Sodium 40 mg Orally Once a day 1 tablet 24h 90 days Active Symbicort 160-4.5 mcg/act Inhalation Twice a day inhale 2 puffs by Inhalation route in the morning and evening 2 times per day 12h 20 Jul, 2014 Active EPINEPHrine 0.3 MG/0.3ML Injection PRN as directed Apr, Active Premarin 0.625 MG Orally daily 1 tablet 24h 24 Dec, 2016 30 day(s) Active Cyclobenzaprine HCl 10 mg Orally Three times a day 1 tablet 8h Active Trazodone HCl 100MG Orally Once a day 1 tablet at bedtime 24h 30 Active Percocet 5-325 MG Orally 2 times a day 1 tablet as needed 12h Dec, 28 days Active Albuterol Sulfate (2.5 MG/3ML) 0.083% Inhalation Three times a day 3 ml 8h 15 Oct, 2015 Active Montelukast Sodium 10 mg TAKE ONE TABLET BY MOUTH ONCE DAILY Active RESULTS Name Result Date Reference Range PAP TEST, HPV IF ASCUS 2017-02-11 DIAGNOSIS: Specimen adequacy: Clinician provided ICD10: Performed by: . . Pathologist provided ICD10: Note: . CULTURE, GENITAL 2017-02-11 Genital Culture, Routine Final report Result 1 PDF Report 2017-02-11 PDF Report1 LCLS Mammogram, Bilateral Screening 2017-02-26 PROCEDURES Procedure Date Ordered Result Body Site SPECIMEN HANDLING February 11[facility] 2017 [facility] IMMUNIZATIONS No Known Immunizations MEDICAL (GENERAL) HISTORY [...] 1992 Surgical History arthroscopic knee surgery; right 2011 Surgical History oopherectomy 2008 Surgical History section 1992 Surgical History tendon repair R thumb 1998 Surgical History carpal tunnel release 1998,2014 Surgical History hysterectomy; partial 1998 Surgical History C3-C7 fusion w/ discectomy-Benedict Hamm 01/2015 Surgical History Heart Cath 01/18/16 Hospitalization History surgeries Hospitalization History chest pain 01/17/16
[2017-12-07 11:26] LABS: BASOPHILS % (AUTO) 1 % (0-10); EOSINOPHILS # (AUTO) 0.4 10^3/uL (0.0-0.3); EOSINOPHILS % (AUTO) 5 % (0-10); HEMATOCRIT 41 % (35-52); HEMOGLOBIN 14.2 G/DL (11.5-16.0); LYMPHOCYTES # (AUTO) 2.3 X 10^3 (1.0-4.0); LYMPHOCYTES % (AUTO) 34 % (12-44); MEAN CORPUSCULAR HEMOGLOBIN 33 PG (25-34); MEAN CORPUSCULAR HGB CONC 35 G/DL (32-36); MEAN CORPUSCULAR VOLUME 95 FL (80-99); MEAN PLATELET VOLUME 11.1 FL (7.4-10.4); MONOCYTES # (AUTO) 0.6 X 10^3 (0.0-1.0); MONOCYTES % (AUTO) 8 % (0-12); NEUTROPHILS # (AUTO) 3.6 X 10^3 (1.8-7.8); NEUTROPHILS % (AUTO) 52 % (42-75); PLATELET COUNT 154 10^3/uL (130-400); RED BLOOD COUNT 4.34 10^6/uL (4.35-5.85); WHITE BLOOD COUNT 6.9 10^3/uL (4.3-11.0)
[2017-12-07 11:36] LABS: PROTHROMBIN TIME PATIENT 13.4 SEC (12.2-14.7)
--- OUTSIDE RECORDS SUMMARY | 2017-12-07 11:40 | XMS REPORT | Continuity of Care Document ---
Author Author [facility] Address Unknown Phone Unavailable Allergies Active Description Code Type Severity Reaction Onset Reported/Identified Relationship to Patient Clinical Status Yes acetaminophen [id number] Drug Allergy Unknown N/A 10/16/2009 Yes bupropion [id number] Drug Allergy Unknown N/A 10/16/2009 Yes cephalexin [id number] Drug Allergy Unknown N/A 10/16/2009 Yes codeine [id number] Drug Allergy Unknown N/A 10/16/2009 Yes Penicillins [id number] Drug Allergy Unknown N/A 10/16/2009 Yes sertraline [id number] Drug Allergy Unknown N/A 10/16/2009 Yes nicotine [id number] Drug Allergy Moderate HIVES, ITCHING, 05/30/2010 Yes morphine [id number] Drug Allergy Unknown N/A 11/20/2016 Medications There is no data. Problems Date Dx Coded Attending Type Code Diagnosis Diagnosed By 01/30/2009 AQUILES OWEN APRN 401.1 ESSENTIAL HYPERTENSION BENIGN 01/30/2009 AQUILES OWEN APRN 782.3 soft tissue swelling (non-joint) [Sx] 01/30/2009 AQUILES OWEN APRN 789.02 abdominal pain in the left upper belly (LUQ) 01/30/2009 AQUILES OWEN APRN 401.1 ESSENTIAL HYPERTENSION BENIGN 01/30/2009 AQUILES OWEN APRN 782.3 soft tissue swelling (non-joint) [Sx] 01/30/2009 AQUILES OWEN APRN 789.02 abdominal pain in the left upper belly (LUQ) 01/30/2009 AQUILES OWEN APRN 401.1 ESSENTIAL HYPERTENSION BENIGN 01/30/2009 AQUILES OWEN APRN 782.3 soft tissue swelling (non-joint) [Sx] 01/30/2009 AQUILES OWEN APRN 789.02 abdominal pain in the left upper belly (LUQ) 01/30/2009 ROSINA GONZALES MD 401.1 ESSENTIAL HYPERTENSION BENIGN 01/30/2009 ROSINA GONZALES MD 782.3 soft tissue swelling (non-joint) [Sx] 01/30/2009 ROSINA GONZALES MD 789.02 abdominal pain in the left upper belly (LUQ) 01/30/2009 HOROWITZ DO, JUSTO K 401.1 ESSENTIAL HYPERTENSION BENIGN 01/30/2009 HOROWITZ DO, JUSTO K 782.3 soft tissue swelling (non-joint) [Sx] 01/30/2009 HOROWITZ DO, JUSTO K 789.02 abdominal pain in the left upper belly (LUQ) 01/30/2009 HOROWITZ DO, JUSTO K 401.1 ESSENTIAL HYPERTENSION BENIGN 01/30/2009 HOROWITZ DO, JUSTO K 782.3 soft tissue swelling (non-joint) [Sx] 01/30/2009 HOROWITZ DO, JUSTO K 789.02 abdominal pain in the left upper belly (LUQ) 01/30/2009 HOROWITZ DO, JUSTO K 401.1 ESSENTIAL HYPERTENSION BENIGN 01/30/2009 HOROWITZ DO, JUSTO K 782.3 SOFT TISSUE SWELLING (NON-JOINT) [SX] 01/30/2009 HOROWITZ DO, JUSTO K 789.02 ABDOMINAL PAIN IN THE LEFT UPPER BELLY (LUQ) 01/30/2009 PRO SURGICAL AIDE, LUPE B 401.1 ESSENTIAL HYPERTENSION BENIGN 01/30/2009 PRO SURGICAL AIDE, LUPE B 782.3 SOFT TISSUE SWELLING (NON-JOINT) [SX] 01/30/2009 PRO SURGICAL AIDE, LUPE B 789.02 ABDOMINAL PAIN IN THE LEFT UPPER BELLY (LUQ) 01/30/2009 HOROWITZ DO, JUSTO K 401.1 ESSENTIAL HYPERTENSION BENIGN 01/30/2009 HOROWITZ DO, JUSTO K 782.3 SOFT TISSUE SWELLING (NON-JOINT) [SX] 01/30/2009 HOROWITZ DO, JUSTO K 789.02 ABDOMINAL PAIN IN THE LEFT UPPER BELLY (LUQ) 01/30/2009 HOROWITZ DO, JUSTO K 401.1 ESSENTIAL HYPERTENSION BENIGN 01/30/2009 HOROWITZ DO, JUSTO K 782.3 SOFT TISSUE SWELLING (NON-JOINT) [SX] 01/30/2009 HOROWITZ DO, JUSTO K 789.02 ABDOMINAL PAIN IN THE LEFT UPPER BELLY (LUQ) 01/30/2009 FELIPA FAST FOOD ATTENDANT, SAIMA R 401.1 ESSENTIAL HYPERTENSION BENIGN 01/30/2009 FELIPA FERNÁNDEZN, SAIMA R 782.3 SOFT TISSUE SWELLING (NON-JOINT) [SX] 01/30/2009 FELIPA FERNÁNDEZN, SAIMA R 789.02 ABDOMINAL PAIN IN THE LEFT UPPER BELLY (LUQ) 01/30/2009 FELIPA FERNÁNDEZN, SAIMA R 401.1 ESSENTIAL HYPERTENSION BENIGN 01/30/2009 FELIPA FERNÁNDEZN, SAIMA R 782.3 SOFT TISSUE SWELLING (NON-JOINT) [SX] 01/30/2009 FELIPA FERNÁNDEZN, SAIMA R 789.02 ABDOMINAL PAIN IN THE LEFT UPPER BELLY (LUQ) 01/30/2009 KOBY LCMF, [place] W 401.1 ESSENTIAL HYPERTENSION BENIGN 01/30/2009 KOBY LCMF, [place] W 782.3 SOFT TISSUE SWELLING (NON-JOINT) [SX] 01/30/2009 KOBY LCMF, [place] W 789.02 ABDOMINAL PAIN IN THE LEFT UPPER BELLY (LUQ) 01/30/2009 FELIPA HUYNH, SAIMA R 401.1 ESSENTIAL HYPERTENSION BENIGN 01/30/2009 FELIPA HUYNH, SAIMA R 782.3 SOFT TISSUE SWELLING (NON-JOINT) [SX] 01/30/2009 FELIPA HUYNH, SAIMA R 789.02 ABDOMINAL PAIN IN THE LEFT UPPER BELLY (LUQ) 01/30/2009 TIANNA HUYNH, ALEYDA L 401.1 ESSENTIAL HYPERTENSION BENIGN 01/30/2009 MADDonald HUYNH, ALEYDA L 782.3 SOFT TISSUE SWELLING (NON-JOINT) [SX] 01/30/2009 TIANNA HUYNH, ALEYDA L 789.02 ABDOMINAL PAIN IN THE LEFT UPPER BELLY (LUQ) 01/30/2009 FELIPA HUYNH, SAIMA R 401.1 ESSENTIAL HYPERTENSION BENIGN 01/30/2009 FELIPA FERNÁNDEZN, SAIMA R 782.3 SOFT TISSUE SWELLING (NON-JOINT) [SX] 01/30/2009 FELIPA FERNÁNDEZN, SAIMA R 789.02 ABDOMINAL PAIN IN THE LEFT UPPER BELLY (LUQ) 01/30/2009 MANJIT HUYNH PRITESH 401.1 ESSENTIAL HYPERTENSION BENIGN 01/30/2009 PRITESH SARAVIA APRN 782.3 SOFT TISSUE SWELLING (NON-JOINT) [SX] 01/30/2009 MANJITMICHAEL FERNÁNDEZNJULIETHPRITESH 789.02 ABDOMINAL PAIN IN THE LEFT UPPER BELLY (LUQ) 01/30/2009 SAIMA LEO APRN R 401.1 ESSENTIAL HYPERTENSION BENIGN 01/30/2009 SAIMA LEO APRN R 782.3 SOFT TISSUE SWELLING (NON-JOINT) [SX] 01/30/2009 SAIMA LEO APRN R 789.02 ABDOMINAL PAIN IN THE LEFT UPPER BELLY (LUQ) 02/07/2009 AQUILES OWEN APRN 296.50 MO BIPOLAR I DEPRESSED UNSPECIFIED 02/07/2009 AQUILES OWEN APRN 304.80 SA POLYSUB DEP 02/07/2009 AQUILES OWEN APRN 307.47 SI DYSSOMNIA NOS 02/07/2009 AQUILES OWEN APRN 309.81 AN PTSD 02/07/2009 AQUILES OWEN APRN 316 PF PSYCHIC FACTORS MED COND 02/07/2009 AQUILES OWEN APRN 296.50 MO BIPOLAR I DEPRESSED UNSPECIFIED 02/07/2009 AQUILES OWEN APRN 304.80 SA POLYSUB DEP 02/07/2009 AQUILES OWEN APRN 307.47 SI DYSSOMNIA NOS 02/07/2009 AQUILES OWEN APRN 309.81 AN PTSD 02/07/2009 AQUILES OWEN APRN 316 PF PSYCHIC FACTORS MED COND 02/07/2009 AQUILES OWEN APRN 296.50 MO BIPOLAR I DEPRESSED UNSPECIFIED 02/07/2009 AQUILES OWEN APRN 304.80 SA POLYSUB DEP 02/07/2009 AQUILES OWEN APRN 307.47 SI DYSSOMNIA NOS 02/07/2009 AQUILES OWEN APRN 309.81 AN PTSD 02/07/2009 AQUILES OWEN APRN 316 PF PSYCHIC FACTORS MED COND 02/07/2009 ROSINA GONZALES MD 296.50 MO BIPOLAR I DEPRESSED UNSPECIFIED 02/07/2009 ROSINA GONZALES MD 304.80 SA POLYSUB DEP 02/07/2009 ROSINA GONZALES MD 307.47 SI DYSSOMNIA NOS 02/07/2009 ROSINA GONZALES MD 309.81 AN PTSD 02/07/2009 ROSINA GONZALES MD 316 PF PSYCHIC FACTORS MED COND 02/07/2009 HOROWITZ DO JUSTO K 296.50 MO BIPOLAR I DEPRESSED UNSPECIFIED 02/07/2009 HOROWITZ DO, JUSTO K 304.80 SA POLYSUB DEP 02/07/2009 HOROWITZ DO, JUSTO K 307.47 SI DYSSOMNIA NOS 02/07/2009 HOROWITZ DO, JUSTO K 309.81 AN PTSD 02/07/2009 HOROWITZ DO, JUSTO K 316 PF PSYCHIC FACTORS MED COND 02/07/2009 HOROWITZ DO, JUSTO K 296.50 MO BIPOLAR I DEPRESSED UNSPECIFIED 02/07/2009 HOROWITZ DO, JUSTO K 304.80 SA POLYSUB DEP 02/07/2009 HOROWITZ DO, JUSTO K 307.47 SI DYSSOMNIA NOS 02/07/2009 HOROWITZ DO, JUSTO K 309.81 AN PTSD 02/07/2009 HOROWITZ DO, JUSTO K 316 PF PSYCHIC FACTORS MED COND 02/07/2009 HOROWITZ DO, JUSTO K 296.50 MO BIPOLAR I DEPRESSED UNSPECIFIED 02/07/2009 HOROWITZ DO, JUSTO K 304.80 SA POLYSUB DEP 02/07/2009 HOROWITZ DO, JUSTO K 307.47 SI DYSSOMNIA NOS 02/07/2009 HOROWITZ DO, JUSTO K 309.81 AN PTSD 02/07/2009 HOROWITZ DO, JUSTO K 316 PF PSYCHIC FACTORS MED COND 02/07/2009 PRO SURGICAL AIDE, LUPE B 296.50 MO BIPOLAR I DEPRESSED UNSPECIFIED 02/07/2009 PRO SURGICAL AIDE, LUPE B 304.80 SA POLYSUB DEP 02/07/2009 PRO SURGICAL AIDE, LUPE B 307.47 SI DYSSOMNIA NOS 02/07/2009 PRO SURGICAL AIDE, LUPE B 309.81 AN PTSD 02/07/2009 PRO SURGICAL AIDE, LUPE B 316 PF PSYCHIC FACTORS MED COND 02/07/2009 HOROWITZ DO, JUSTO K 296.50 MO BIPOLAR I DEPRESSED UNSPECIFIED 02/07/2009 HOROWITZ DO, JUSTO K 304.80 SA POLYSUB DEP 02/07/2009 HOROWITZ DO, JUSTO K 307.47 SI DYSSOMNIA NOS 02/07/2009 HOROWITZ DO, JUSTO K 309.81 AN PTSD 02/07/2009 HOROWITZ DO, JUSTO K 316 PF PSYCHIC FACTORS MED COND 02/07/2009 HOROWITZ DO, JUSTO K 296.50 MO BIPOLAR I DEPRESSED UNSPECIFIED 02/07/2009 HOROWITZ DO, JUSTO K 304.80 SA POLYSUB DEP 02/07/2009 HOROWITZ DO, JUSTO K 307.47 SI DYSSOMNIA NOS 02/07/2009 HOROWITZ DO, JUSTO K 309.81 AN PTSD 02/07/2009 HOROWITZ DO, JUSTO K 316 PF PSYCHIC FACTORS MED COND 02/07/2009 FELIPA FAST FOOD ATTENDANT, SAIMA R 296.50 MO BIPOLAR I DEPRESSED UNSPECIFIED 02/07/2009 FELIPA FAST FOOD ATTENDANT, SAIMA R 304.80 SA POLYSUB DEP 02/07/2009 FELIPA FAST FOOD ATTENDANT, SAIMA R 307.47 SI DYSSOMNIA NOS 02/07/2009 FELIPA FAST FOOD ATTENDANT, SAIMA R 309.81 AN PTSD 02/07/2009 FELIPA FAST FOOD ATTENDANT, SAIMA R 316 PF PSYCHIC FACTORS MED COND 02/07/2009 FELIPA FAST FOOD ATTENDANT, SAIMA R 296.50 MO BIPOLAR I DEPRESSED UNSPECIFIED 02/07/2009 FELIPA FAST FOOD ATTENDANT, SAIMA R 304.80 SA POLYSUB DEP 02/07/2009 FELIPA FAST FOOD ATTENDANT, SAIMA R 307.47 SI DYSSOMNIA NOS 02/07/2009 FELIPA FAST FOOD ATTENDANT, SAIMA R 309.81 AN PTSD 02/07/2009 FELIPA FERNÁNDEZN, SAIMA R 316 PF PSYCHIC FACTORS MED COND 02/07/2009 KOBY LCMF, [place] W 296.50 MO BIPOLAR I DEPRESSED UNSPECIFIED 02/07/2009 KOBY LCMF, [place] W 304.80 SA POLYSUB DEP 02/07/2009 KOBY LCMF, [place] W 307.47 SI DYSSOMNIA NOS 02/07/2009 KOBY LCMF, [place] W 309.81 AN PTSD 02/07/2009 KOBY LCMF, [place] W 316 PF PSYCHIC FACTORS MED COND 02/07/2009 FELIPA FERNÁNDEZN, SAIMA R 296.50 MO BIPOLAR I DEPRESSED UNSPECIFIED 02/07/2009 FELIPA FAST FOOD ATTENDANT, SAIMA R 304.80 SA POLYSUB DEP 02/07/2009 FELIPA FAST FOOD ATTENDANT, SAIMA R 307.47 SI DYSSOMNIA NOS 02/07/2009 FELIPA FAST FOOD ATTENDANT, SAIMA R 309.81 AN PTSD 02/07/2009 FELIPA FAST FOOD ATTENDANT, SAIMA R 316 PF PSYCHIC FACTORS MED COND 02/07/2009 MADL FAST FOOD ATTENDANT, ALEYDA L 296.50 MO BIPOLAR I DEPRESSED UNSPECIFIED 02/07/2009 MADL FAST FOOD ATTENDANT, ALEYDA L 304.80 SA POLYSUB DEP 02/07/2009 MADL FAST FOOD ATTENDANT, ALEYDA L 307.47 SI DYSSOMNIA NOS 02/07/2009 MADL FAST FOOD ATTENDANT, ALEYDA L 309.81 AN PTSD 02/07/2009 MADL FAST FOOD ATTENDANT, ALEYDA L 316 PF PSYCHIC FACTORS MED COND 02/07/2009 FELIPA FAST FOOD ATTENDANT, SAIMA R 296.50 MO BIPOLAR I DEPRESSED UNSPECIFIED 02/07/2009 FELIPA FAST FOOD ATTENDANT, SAIMA R 304.80 SA POLYSUB DEP 02/07/2009 FELIPA FAST FOOD ATTENDANT, SAIMA R 307.47 SI DYSSOMNIA NOS 02/07/2009 FELIPA FAST FOOD ATTENDANT, SAIMA R 309.81 AN PTSD 02/07/2009 FELIPA FAST FOOD ATTENDANT, SAIMA R 316 PF PSYCHIC FACTORS MED COND 02/07/2009 MANJIT FAST FOOD ATTENDANT, PRITESH 296.50 MO BIPOLAR I DEPRESSED UNSPECIFIED 02/07/2009 MANJIT FAST FOOD ATTENDANT, PRITESH 304.80 SA POLYSUB DEP 02/07/2009 MANJIT FAST FOOD ATTENDANT, PRITESH 307.47 SI DYSSOMNIA NOS 02/07/2009 MANJIT FAST FOOD ATTENDANT, PRITESH 309.81 AN PTSD 02/07/2009 MANJIT FAST FOOD ATTENDANT, PRITESH 316 PF PSYCHIC FACTORS MED COND 02/07/2009 FELIPA FAST FOOD ATTENDANT, SAIMA R 296.50 MO BIPOLAR I DEPRESSED UNSPECIFIED 02/07/2009 FELIPA FAST FOOD ATTENDANT, SAIMA R 304.80 SA POLYSUB DEP 02/07/2009 FELIPA FAST FOOD ATTENDANT, SAIMA R 307.47 SI DYSSOMNIA NOS 02/07/2009 FELIPA FAST FOOD ATTENDANT, SAIMA R 309.81 AN PTSD 02/07/2009 FELIPA FAST FOOD ATTENDANT, SAIMA R 316 PF PSYCHIC FACTORS MED COND 03/12/2009 AQUILES OWEN APRN V48.5 SENSORY PROBLEM WITH NECK AND TRUNK 03/12/2009 AQUILES OWEN APRN V48.5 SENSORY PROBLEM WITH NECK AND TRUNK 03/12/2009 AQUILES OWEN APRN V48.5 SENSORY PROBLEM WITH NECK AND TRUNK 03/12/2009 ROSINA GONZALES MD V48.5 SENSORY PROBLEM WITH NECK AND TRUNK 03/12/2009 JUSTO HOROWITZ DO V48.5 SENSORY PROBLEM WITH NECK AND TRUNK 03/12/2009 JUSTO HOROWITZ DO V48.5 SENSORY PROBLEM WITH NECK AND TRUNK 03/12/2009 HOROWITZ JUSTO ABDALLA V48.5 SENSORY PROBLEM WITH NECK AND TRUNK 03/12/2009 PRO SURGICAL AIDE, LUPE B V48.5 SENSORY PROBLEM WITH NECK AND TRUNK 03/12/2009 HOROWITZ DO, JUSTO K V48.5 SENSORY PROBLEM WITH NECK AND TRUNK 03/12/2009 HOROWITZ DO, JUSTO K V48.5 SENSORY PROBLEM WITH NECK AND TRUNK 03/12/2009 FELIPA FAST FOOD ATTENDANT, SAIMA R V48.5 SENSORY PROBLEM WITH NECK AND TRUNK 03/12/2009 FELIPA FAST FOOD ATTENDANT, SAIMA R V48.5 SENSORY PROBLEM WITH NECK AND TRUNK 03/12/2009 KOBY LAWSONMF, [place] W V48.5 SENSORY PROBLEM WITH NECK AND TRUNK 03/12/2009 FELIPA FAST FOOD ATTENDANT, SAIMA R V48.5 SENSORY PROBLEM WITH NECK AND TRUNK 03/12/2009 TIANNA FAST FOOD ATTENDANT, ALEYDA L V48.5 SENSORY PROBLEM WITH NECK AND TRUNK 03/12/2009 FELIPA FAST FOOD ATTENDANT, SAIMA R V48.5 SENSORY PROBLEM WITH NECK AND TRUNK 03/12/2009 MANJIT FAST FOOD ATTENDANT, PRITESH V48.5 SENSORY PROBLEM WITH NECK AND TRUNK 03/12/2009 FELIPA FAST FOOD ATTENDANT, SAIMA R V48.5 SENSORY PROBLEM WITH NECK AND TRUNK 03/19/2009 AQUILES OWEN APRN 625.9 pelvic pain 03/19/2009 AQUILES OWEN APRN V72.3 GYNECOLOGICAL EXAMINATION 03/19/2009 AQUILES OWEN APRN 625.9 pelvic pain 03/19/2009 AQUILES OWEN APRN V72.3 GYNECOLOGICAL EXAMINATION 03/19/2009 AQUILES OWEN APRN 625.9 pelvic pain 03/19/2009 AQUILES OWEN APRN V72.3 GYNECOLOGICAL EXAMINATION 03/19/2009 ROSINA GONZALES MD 625.9 pelvic pain 03/19/2009 ROSINA GONZALES MD V72.3 GYNECOLOGICAL EXAMINATION 03/19/2009 HOROWITZ DO, JUSTO K 625.9 pelvic pain 03/19/2009 HOROWITZ DO, JUSTO K V72.3 GYNECOLOGICAL EXAMINATION 03/19/2009 HOROWITZ DO, JUSTO K 625.9 pelvic pain 03/19/2009 HOROWITZ DO, JUSTO K V72.3 GYNECOLOGICAL EXAMINATION 03/19/2009 HOROWITZ DO, JUSTO K 625.9 pelvic pain 03/19/2009 HOROWITZ DO, JUSTO K V72.3 GYNECOLOGICAL EXAMINATION 03/19/2009 LUPE MAST LCPC 625.9 pelvic pain 03/19/2009 PRO SURGICAL AIDE, LUPE B V72.3 GYNECOLOGICAL EXAMINATION 03/19/2009 HOROWITZ DO, JUSTO K 625.9 pelvic pain 03/19/2009 HOROWITZ DO, JUSTO K V72.3 GYNECOLOGICAL EXAMINATION 03/19/2009 HOROWITZ DO, JUSTO K 625.9 pelvic pain 03/19/2009 HOROWITZ DO, JUSTO K V72.3 GYNECOLOGICAL EXAMINATION 03/19/2009 FELIPA FAST FOOD ATTENDANT, SAIMA R 625.9 pelvic pain 03/19/2009 FELIPA FAST FOOD ATTENDANT, SAIMA R V72.3 GYNECOLOGICAL EXAMINATION 03/19/2009 FELIPA FAST FOOD ATTENDANT, SAIMA R 625.9 pelvic pain 03/19/2009 FELIPA FAST FOOD ATTENDANT, SAIMA R V72.3 GYNECOLOGICAL EXAMINATION 03/19/2009 KOBY LCMF, [place] W 625.9 pelvic pain 03/19/2009 KOBY LCMF, [place] W V72.3 GYNECOLOGICAL EXAMINATION 03/19/2009 FELIPA FAST FOOD ATTENDANT, SAIMA R 625.9 pelvic pain 03/19/2009 FELIPA FAST FOOD ATTENDANT, SAIMA R V72.3 GYNECOLOGICAL EXAMINATION 03/19/2009 MADL FAST FOOD ATTENDANT, ALEYDA L 625.9 pelvic pain 03/19/2009 MADL FAST FOOD ATTENDANT, ALEYDA L V72.3 GYNECOLOGICAL EXAMINATION 03/19/2009 FELIPA FAST FOOD ATTENDANT, SAIMA R 625.9 pelvic pain 03/19/2009 FELIPA FAST FOOD ATTENDANT, SAIMA R V72.3 GYNECOLOGICAL EXAMINATION 03/19/2009 MANJIT FAST FOOD ATTENDANT, PRITESH 625.9 pelvic pain 03/19/2009 MANJIT FAST FOOD ATTENDANT, PRITESH V72.3 GYNECOLOGICAL EXAMINATION 03/19/2009 FELIPA FAST FOOD ATTENDANT, SAIMA R 625.9 pelvic pain 03/19/2009 FELIPA FAST FOOD ATTENDANT, SAIMA R V72.3 GYNECOLOGICAL EXAMINATION 04/23/2009 AQUILES OWEN APRN 296.54 MO BIPOLAR I DEPRESSED SEVERE WITH PSYCHOTIC BEHAVIOR 04/23/2009 AQUILES OWEN APRN 305.20 SA CANNABIS ABUSE 04/23/2009 AQUILES OWEN APRN 305.60 SA COCAINE ABUSE 04/23/2009 AQUILES OWEN APRN 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 04/23/2009 AQUILES OWEN APRN 296.54 MO BIPOLAR I DEPRESSED SEVERE WITH PSYCHOTIC BEHAVIOR 04/23/2009 AQUILES OWEN APRN 305.20 SA CANNABIS ABUSE 04/23/2009 AQUILES OWEN APRN 305.60 SA COCAINE ABUSE 04/23/2009 BRAYDEN FAST FOOD ATTENDANT, AQUILES T 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 04/23/2009 AQUILES OWEN APRN T 296.54 MO BIPOLAR I DEPRESSED SEVERE WITH PSYCHOTIC BEHAVIOR 04/23/2009 AQUILES OWEN APRN T 305.20 SA CANNABIS ABUSE 04/23/2009 AQUILES OWEN APRN T 305.60 SA COCAINE ABUSE 04/23/2009 AQUILES OWEN APRN T 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 04/23/2009 ROSINA GONZALES MD 296.54 MO BIPOLAR I DEPRESSED SEVERE WITH PSYCHOTIC BEHAVIOR 04/23/2009 ROSINA GONZALES MD 305.20 SA CANNABIS ABUSE 04/23/2009 ROSINA GONZALES MD 305.60 SA COCAINE ABUSE 04/23/2009 ROSINA GONZALES MD 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 04/23/2009 CARLOS MANUEL ABDALLA JUSTO K 296.54 MO BIPOLAR I DEPRESSED SEVERE WITH PSYCHOTIC BEHAVIOR 04/23/2009 HOROWITZ DO JUSTO K 305.20 SA CANNABIS ABUSE 04/23/2009 HOROWITZ DO JUSTO K 305.60 SA COCAINE ABUSE 04/23/2009 HOROWITZ DO JUSTO K 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 04/23/2009 HOROWITZ DO JUSTO K 296.54 MO BIPOLAR I DEPRESSED SEVERE WITH PSYCHOTIC BEHAVIOR 04/23/2009 HOROWITZ DO JUSTO K 305.20 SA CANNABIS ABUSE 04/23/2009 HOROWITZ DO JUSTO K 305.60 SA COCAINE ABUSE 04/23/2009 HOROWITZ DO JUSTO K 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 04/23/2009 HOROWITZ DO, JUSTO K 296.54 MO BIPOLAR I DEPRESSED SEVERE WITH PSYCHOTIC BEHAVIOR 04/23/2009 HOROWITZ DO JUSTO K 305.20 SA CANNABIS ABUSE 04/23/2009 HOROWITZ DO JUSTO K 305.60 SA COCAINE ABUSE 04/23/2009 HOROWITZ DO, JUSTO K 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 04/23/2009 PRO SURGICAL AIDE, LUPE B 296.54 MO BIPOLAR I DEPRESSED SEVERE WITH PSYCHOTIC BEHAVIOR 04/23/2009 PRO SURGICAL AIDE, LUPE B 305.20 SA CANNABIS ABUSE 04/23/2009 PRO SURGICAL AIDE, LUPE B 305.60 SA COCAINE ABUSE 04/23/2009 PRO SURGICAL AIDE, LUPE B 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 04/23/2009 HOROWITZ DO, JUSTO K 296.54 MO BIPOLAR I DEPRESSED SEVERE WITH PSYCHOTIC BEHAVIOR 04/23/2009 HOROWITZ DO JUSTO K 305.20 SA CANNABIS ABUSE 04/23/2009 HOROWITZ DO, JUSTO K 305.60 SA COCAINE ABUSE 04/23/2009 HOROWITZ DO, JUSTO K 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 04/23/2009 HOROWITZ DO, JUSTO K 296.54 MO BIPOLAR I DEPRESSED SEVERE WITH PSYCHOTIC BEHAVIOR 04/23/2009 HOROWITZ DO, JUSTO K 305.20 SA CANNABIS ABUSE 04/23/2009 HOROWITZ DO, JUSTO K 305.60 SA COCAINE ABUSE 04/23/2009 HOROWITZ DO, JUSTO K 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 04/23/2009 FELIPA FAST FOOD ATTENDANT, SAIMA R 296.54 MO BIPOLAR I DEPRESSED SEVERE WITH PSYCHOTIC BEHAVIOR 04/23/2009 FELIPA FAST FOOD ATTENDANT, SAIMA R 305.20 SA CANNABIS ABUSE 04/23/2009 FELIPA FAST FOOD ATTENDANT, SAIMA R 305.60 SA COCAINE ABUSE 04/23/2009 FELIPA FAST FOOD ATTENDANT, SAIMA R 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 04/23/2009 FELIPA FAST FOOD ATTENDANT, SAIMA R 296.54 MO BIPOLAR I DEPRESSED SEVERE WITH PSYCHOTIC BEHAVIOR 04/23/2009 FELIPA FAST FOOD ATTENDANT, SAIMA R 305.20 SA CANNABIS ABUSE 04/23/2009 FELIPA FAST FOOD ATTENDANT, SAIMA R 305.60 SA COCAINE ABUSE 04/23/2009 FELIPA FAST FOOD ATTENDANT, SAIMA R 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 04/23/2009 KOBY LCMF, [place] W 296.54 MO BIPOLAR I DEPRESSED SEVERE WITH PSYCHOTIC BEHAVIOR 04/23/2009 KOBY LCMF, [place] W 305.20 SA CANNABIS ABUSE 04/23/2009 KOBY LCMF, [place] W 305.60 SA COCAINE ABUSE 04/23/2009 KOBY LCMF, [place] W 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 04/23/2009 FELIPA FAST FOOD ATTENDANT, SAIMA R 296.54 MO BIPOLAR I DEPRESSED SEVERE WITH PSYCHOTIC BEHAVIOR 04/23/2009 FELIPA FAST FOOD ATTENDANT, SAIMA R 305.20 SA CANNABIS ABUSE 04/23/2009 FELIPA FAST FOOD ATTENDANT, SAIMA R 305.60 SA COCAINE ABUSE 04/23/2009 FELIPA FAST FOOD ATTENDANT, SAIMA R 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 04/23/2009 MADL FAST FOOD ATTENDANT, ALEYDA L 296.54 MO BIPOLAR I DEPRESSED SEVERE WITH PSYCHOTIC BEHAVIOR 04/23/2009 MADL FAST FOOD ATTENDANT, ALEYDA L 305.20 SA CANNABIS ABUSE 04/23/2009 MADL FAST FOOD ATTENDANT, ALEYDA L 305.60 SA COCAINE ABUSE 04/23/2009 MADL FAST FOOD ATTENDANT, ALEYDA L 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 04/23/2009 FELIPA FAST FOOD ATTENDANT, SAIMA R 296.54 MO BIPOLAR I DEPRESSED SEVERE WITH PSYCHOTIC BEHAVIOR 04/23/2009 FELIPA FAST FOOD ATTENDANT, SAIMA R 305.20 SA CANNABIS ABUSE 04/23/2009 FELIPA FAST FOOD ATTENDANT, SAIMA R 305.60 SA COCAINE ABUSE 04/23/2009 FELIPA FAST FOOD ATTENDANT, SAIMA R 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 04/23/2009 MANJIT FAST FOOD ATTENDANT, PRITESH 296.54 MO BIPOLAR I DEPRESSED SEVERE WITH PSYCHOTIC BEHAVIOR 04/23/2009 MANJIT FAST FOOD ATTENDANT, PRITESH 305.20 SA CANNABIS ABUSE 04/23/2009 MANJIT FAST FOOD ATTENDANT, PRITESH 305.60 SA COCAINE ABUSE 04/23/2009 MANJIT FAST FOOD ATTENDANT, PRITESH 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 04/23/2009 FELIPA FAST FOOD ATTENDANT, SAIMA R 296.54 MO BIPOLAR I DEPRESSED SEVERE WITH PSYCHOTIC BEHAVIOR 04/23/2009 FELIPA FAST FOOD ATTENDANT, SAIMA R 305.20 SA CANNABIS ABUSE 04/23/2009 FELIPA FAST FOOD ATTENDANT, SAIMA R 305.60 SA COCAINE ABUSE 04/23/2009 FELIPA FAST FOOD ATTENDANT, SAIMA R 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 10/16/2009 AQUILES OWEN APRN 789.61 Abdomen Tenderness Direct RUQ 10/16/2009 AQUILES OWEN APRN 789.61 Abdomen Tenderness Direct RUQ 10/16/2009 AQUILES OWEN APRN 789.61 Abdomen Tenderness Direct RUQ 10/16/2009 ROSINA GONZALES MD 789.61 Abdomen Tenderness Direct RUQ 10/16/2009 HOROWITZ DO, JUSTO K 789.61 Abdomen Tenderness Direct RUQ 10/16/2009 HOROWITZ DO, JUSTO K 789.61 Abdomen Tenderness Direct RUQ 10/16/2009 HOROWITZ DO, JUSTO K 789.61 ABDOMEN TENDERNESS DIRECT RUQ 10/16/2009 LUPE MAST LCPC 789.61 ABDOMEN TENDERNESS DIRECT RUQ 10/16/2009 HOROWITZ DO, JUSTO K 789.61 ABDOMEN TENDERNESS DIRECT RUQ 10/16/2009 HOROWITZ DO, JUSTO K 789.61 ABDOMEN TENDERNESS DIRECT RUQ 10/16/2009 FELIPA FAST FOOD ATTENDANT, SAIMA R 789.61 ABDOMEN TENDERNESS DIRECT RUQ 10/16/2009 FELIPA FAST FOOD ATTENDANT, SAIMA R 789.61 ABDOMEN TENDERNESS DIRECT RUQ 10/16/2009 KOBY LAWSONF, [place] W 789.61 ABDOMEN TENDERNESS DIRECT RUQ 10/16/2009 FELIPA FAST FOOD ATTENDANT, SAIMA R 789.61 ABDOMEN TENDERNESS DIRECT RUQ 10/16/2009 TIANNA HUYNH, ALEYDA Bennett 789.61 ABDOMEN TENDERNESS DIRECT RUQ 10/16/2009 FELIPA FAST FOOD ATTENDANT, SAIMA R 789.61 ABDOMEN TENDERNESS DIRECT RUQ 10/16/2009 MANJIT FAST FOOD ATTENDANT, PRITESH 789.61 ABDOMEN TENDERNESS DIRECT RUQ 10/16/2009 FELIPA FAST FOOD ATTENDANT, SAIMA R 789.61 ABDOMEN TENDERNESS DIRECT RUQ 10/31/2009 AQUILES OWEN APRN 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 I MIXED UNSPECIFIED 10/31/2009 AQUILES OWEN APRN 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 I MIXED UNSPECIFIED 10/31/2009 AQUILES OWEN APRN T 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 I MIXED UNSPECIFIED 10/31/2009 CHRISTIAN SPENCER, ROSINA 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 I MIXED UNSPECIFIED 10/31/2009 HOROWITZ DO, JUSTO K 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 I MIXED UNSPECIFIED 10/31/2009 HOROWITZ DO, JUSTO K 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 I MIXED UNSPECIFIED 10/31/2009 HOROWITZ DO, JUSTO K 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 I MIXED UNSPECIFIED 10/31/2009 PRO LAWSONPC, LUPE B 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 I MIXED UNSPECIFIED 10/31/2009 HOROWITZ DO, JUSTO K 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 I MIXED UNSPECIFIED 10/31/2009 HOROWITZ DO, JUSTO K 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 I MIXED UNSPECIFIED 10/31/2009 FELIPA FAST FOOD ATTENDANT, SAIMA R 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 I MIXED UNSPECIFIED 10/31/2009 FELIPA FAST FOOD ATTENDANT, SAIMA R 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 I MIXED UNSPECIFIED 10/31/2009 KOBY LAWSONF, [place] W 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 I MIXED UNSPECIFIED 10/31/2009 FELIPA FAST FOOD ATTENDANT, SAIMA R 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 I MIXED UNSPECIFIED 10/31/2009 ALEYDA WYNN APRN L 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 I MIXED UNSPECIFIED 10/31/2009 FELIPA FAST FOOD ATTENDANT, SAIMA R 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 I MIXED UNSPECIFIED 10/31/2009 MANJIT FAST FOOD ATTENDANTPRITESH Sims 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 I MIXED UNSPECIFIED 10/31/2009 FEILPA FAST FOOD ATTENDANT, SAIMA R 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 I MIXED UNSPECIFIED 02/26/2010 BRAYDEN FAST FOOD ATTENDANT, AQUILES T 461.0 ACUTE MAXILLARY SINUSITIS 02/26/2010 BRAYDEN FAST FOOD ATTENDANT, AQUILES T 692.6 CONTACT DERMATITIS AND OTHER ECZEMA, DUE TO PLANTS [EXCEPT FOOD] 02/26/2010 BRAYDEN FAST FOOD ATTENDANT, AQUILES T 461.0 ACUTE MAXILLARY SINUSITIS 02/26/2010 BRAYDEN FAST FOOD ATTENDANT, AQUILES T 692.6 CONTACT DERMATITIS AND OTHER ECZEMA, DUE TO PLANTS [EXCEPT FOOD] 02/26/2010 BRAYDEN FAST FOOD ATTENDANT, AQUILES T 461.0 ACUTE MAXILLARY SINUSITIS 02/26/2010 BRAYDEN FERNÁNDEZN, AQUILES T 692.6 CONTACT DERMATITIS AND OTHER ECZEMA, DUE TO PLANTS [EXCEPT FOOD] 02/26/2010 ROSINA GONZALES MD 461.0 ACUTE MAXILLARY SINUSITIS 02/26/2010 ROSINA GONZALES MD 692.6 CONTACT DERMATITIS AND OTHER ECZEMA, DUE TO PLANTS [EXCEPT FOOD] 02/26/2010 HOROWITZ DO, JUSTO K 461.0 ACUTE MAXILLARY SINUSITIS 02/26/2010 HOROWITZ DO, JUSTO K 692.6 CONTACT DERMATITIS AND OTHER ECZEMA, DUE TO PLANTS [EXCEPT FOOD] 02/26/2010 HOROWITZ DO, JUSTO K 461.0 ACUTE MAXILLARY SINUSITIS 02/26/2010 HOROWITZ DO, JUSTO K 692.6 CONTACT DERMATITIS AND OTHER ECZEMA, DUE TO PLANTS [EXCEPT FOOD] 02/26/2010 HOROWITZ DO, JUSTO K 461.0 ACUTE MAXILLARY SINUSITIS 02/26/2010 HOROWITZ DO, JUSTO K 692.6 CONTACT DERMATITIS AND OTHER ECZEMA, DUE TO PLANTS [EXCEPT FOOD] 02/26/2010 PRO SURGICAL AIDE, LUPE B 461.0 ACUTE MAXILLARY SINUSITIS 02/26/2010 PRO SURGICAL AIDE, LUPE B 692.6 CONTACT DERMATITIS AND OTHER ECZEMA, DUE TO PLANTS [EXCEPT FOOD] 02/26/2010 HOROWITZ DO, JUSTO K 461.0 ACUTE MAXILLARY SINUSITIS 02/26/2010 HOROWITZ DO, JUSTO K 692.6 CONTACT DERMATITIS AND OTHER ECZEMA, DUE TO PLANTS [EXCEPT FOOD] 02/26/2010 HOROWITZ DO, JUSTO K 461.0 ACUTE MAXILLARY SINUSITIS 02/26/2010 HOROWITZ DO, JUSTO K 692.6 CONTACT DERMATITIS AND OTHER ECZEMA, DUE TO PLANTS [EXCEPT FOOD] 02/26/2010 LUZ MARIA LEO APRNINA R 461.0 ACUTE MAXILLARY SINUSITIS 02/26/2010 FELIPA FAST FOOD ATTENDANT, SAIMA R 692.6 CONTACT DERMATITIS AND OTHER ECZEMA, DUE TO PLANTS [EXCEPT FOOD] 02/26/2010 FELIPA FAST FOOD ATTENDANT, SAIMA R 461.0 ACUTE MAXILLARY SINUSITIS 02/26/2010 FELIPA FAST FOOD ATTENDANT, SAIMA R 692.6 CONTACT DERMATITIS AND OTHER ECZEMA, DUE TO PLANTS [EXCEPT FOOD] 02/26/2010 KOBY LCMF, [place] W 461.0 ACUTE MAXILLARY SINUSITIS 02/26/2010 KOBY LCMF, [place] W 692.6 CONTACT DERMATITIS AND OTHER ECZEMA, DUE TO PLANTS [EXCEPT FOOD] 02/26/2010 FELIPA FAST FOOD ATTENDANT, SAIMA R 461.0 ACUTE MAXILLARY SINUSITIS 02/26/2010 FELIPA FAST FOOD ATTENDANT, SAIMA R 692.6 CONTACT DERMATITIS AND OTHER ECZEMA, DUE TO PLANTS [EXCEPT FOOD] 02/26/2010 MADL FAST FOOD ATTENDANT, ALEYDA L 461.0 ACUTE MAXILLARY SINUSITIS 02/26/2010 MADL FAST FOOD ATTENDANT, ALEYDA L 692.6 CONTACT DERMATITIS AND OTHER ECZEMA, DUE TO PLANTS [EXCEPT FOOD] 02/26/2010 FELIPA FAST FOOD ATTENDANT, SAIMA R 461.0 ACUTE MAXILLARY SINUSITIS 02/26/2010 FELIPA FAST FOOD ATTENDANT, SAIMA R 692.6 CONTACT DERMATITIS AND OTHER ECZEMA, DUE TO PLANTS [EXCEPT FOOD] 02/26/2010 MANJIT FAST FOOD ATTENDANT, PRITESH 461.0 ACUTE MAXILLARY SINUSITIS 02/26/2010 MANJIT FAST FOOD ATTENDANT, PRITESH 692.6 CONTACT DERMATITIS AND OTHER ECZEMA, DUE TO PLANTS [EXCEPT FOOD] 02/26/2010 FELIPA FAST FOOD ATTENDANT, SAIMA R 461.0 ACUTE MAXILLARY SINUSITIS 02/26/2010 FELIPA FAST FOOD ATTENDANT, SAIMA R 692.6 CONTACT DERMATITIS AND OTHER ECZEMA, DUE TO PLANTS [EXCEPT FOOD] 03/26/2010 AQUILES OWEN APRN 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, TOBACCO USE DISORDER 03/26/2010 AQUILES OWEN APRN 530.81 ESOPHAGEAL REFLUX 03/26/2010 AQUILES OWEN APRN 719.46 PAIN IN JOINT, LOWER LEG 03/26/2010 AQUILES OWEN APRN 786.59 OTHER CHEST PAIN 03/26/2010 AQUILES OWEN APRN 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, TOBACCO USE DISORDER 03/26/2010 BRAYDEN FAST FOOD ATTENDANT, AQUILES T 530.81 ESOPHAGEAL REFLUX 03/26/2010 AQUILES OWEN APRN T 719.46 PAIN IN JOINT, LOWER LEG 03/26/2010 AQUILES OWEN APRN T 786.59 OTHER CHEST PAIN 03/26/2010 AQUILES OWEN APRN 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, TOBACCO USE DISORDER 03/26/2010 AQUILES OWEN APRN T 530.81 ESOPHAGEAL REFLUX 03/26/2010 AQUILES OWEN APRN 719.46 PAIN IN JOINT, LOWER LEG 03/26/2010 AQUILES OWEN APRN T 786.59 OTHER CHEST PAIN 03/26/2010 ROSINA GONZALES MD 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, TOBACCO USE DISORDER 03/26/2010 ROSINA GONZALES MD 530.81 ESOPHAGEAL REFLUX 03/26/2010 ROSINA GONZALES MD 719.46 PAIN IN JOINT, LOWER LEG 03/26/2010 ROSINA GONZALES MD 786.59 OTHER CHEST PAIN 03/26/2010 HOROWITZ DO, JUSTO K 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, TOBACCO USE DISORDER 03/26/2010 HOROWITZ DO, JUSTO K 530.81 ESOPHAGEAL REFLUX 03/26/2010 HOROWITZ DO, JUSTO K 719.46 PAIN IN JOINT, LOWER LEG 03/26/2010 HOROWITZ DO, JUSTO K 786.59 OTHER CHEST PAIN 03/26/2010 HOROWITZ DO, JUSTO K 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, TOBACCO USE DISORDER 03/26/2010 HOROWITZ DO, JUSTO K 530.81 ESOPHAGEAL REFLUX 03/26/2010 HOROWITZ DO, JUSTO K 719.46 PAIN IN JOINT, LOWER LEG 03/26/2010 HOROWITZ DO, JUSTO K 786.59 OTHER CHEST PAIN 03/26/2010 HOROWITZ DO, JUSTO K 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, TOBACCO USE DISORDER 03/26/2010 HOROWITZ DO, JUSTO K 530.81 ESOPHAGEAL REFLUX 03/26/2010 HOROWITZ DO, JUSTO K 719.46 PAIN IN JOINT, LOWER LEG 03/26/2010 HOROWITZ DO, JUSTO K 786.59 OTHER CHEST PAIN 03/26/2010 LUPE MAST LCPC B 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, TOBACCO USE DISORDER 03/26/2010 LUPE MAST LCPC B 530.81 ESOPHAGEAL REFLUX 03/26/2010 LUPE MAST LCPC B 719.46 PAIN IN JOINT, LOWER LEG 03/26/2010 PRO LAWSONPC, LUPE Rosen 786.59 OTHER CHEST PAIN 03/26/2010 HOROWITZ DO, JUSTO K 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, TOBACCO USE DISORDER 03/26/2010 HOROWITZ DO, JUSTO K 530.81 ESOPHAGEAL REFLUX 03/26/2010 HOROWITZ DO, JUSTO K 719.46 PAIN IN JOINT, LOWER LEG 03/26/2010 HOROWITZ DO, JUSTO K 786.59 OTHER CHEST PAIN 03/26/2010 HOROWITZ DO, JUSTO K 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, TOBACCO USE DISORDER 03/26/2010 HOROWITZ DO, JUSTO K 530.81 ESOPHAGEAL REFLUX 03/26/2010 HOROWITZ DO, JUSTO K 719.46 PAIN IN JOINT, LOWER LEG 03/26/2010 HOROWITZ DO, JUSTO K 786.59 OTHER CHEST PAIN 03/26/2010 FELIPA HUYNH, SAIMA R 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, TOBACCO USE DISORDER 03/26/2010 FELIPA HUYNH SAIMA R 530.81 ESOPHAGEAL REFLUX 03/26/2010 FELIPA HUYNH, SAIMA R 719.46 PAIN IN JOINT, LOWER LEG 03/26/2010 FELIPA FAST FOOD ATTENDANT, SAIMA R 786.59 OTHER CHEST PAIN 03/26/2010 FELIPA HUYNH, SAIMA R 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, TOBACCO USE DISORDER 03/26/2010 FELIPA FERNÁNDEZN, SAIMA R 530.81 ESOPHAGEAL REFLUX 03/26/2010 FELIPA FAST FOOD ATTENDANT, SAIMA R 719.46 PAIN IN JOINT, LOWER LEG 03/26/2010 FELIPA FAST FOOD ATTENDANT, SAIMA R 786.59 OTHER CHEST PAIN 03/26/2010 [facility] [place] [facility] 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, TOBACCO USE DISORDER 03/26/2010 [facility] [place] W 530.81 ESOPHAGEAL REFLUX 03/26/2010 [facility] [place] W 719.46 PAIN IN JOINT, LOWER LEG 03/26/2010 [facility] [place] [facility] 786.59 OTHER CHEST PAIN 03/26/2010 FELIPA FAST FOOD ATTENDANT, SAIMA R 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, TOBACCO USE DISORDER 03/26/2010 FELIPA FAST FOOD ATTENDANT, SAIMA R 530.81 ESOPHAGEAL REFLUX 03/26/2010 FELIPA HUYNH, SAIMA R 719.46 PAIN IN JOINT, LOWER LEG 03/26/2010 FELIPA FAST FOOD ATTENDANT, SAIMA R 786.59 OTHER CHEST PAIN 03/26/2010 MADL FAST FOOD ATTENDANT, ALEYDA L 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, TOBACCO USE DISORDER 03/26/2010 MADL FAST FOOD ATTENDANT, ALEYDA L 530.81 ESOPHAGEAL REFLUX 03/26/2010 MADL FAST FOOD ATTENDANT, ALEYDA L 719.46 PAIN IN JOINT, LOWER LEG 03/26/2010 MADL FAST FOOD ATTENDANT, ALEYDA L 786.59 OTHER CHEST PAIN 03/26/2010 FELIPA FAST FOOD ATTENDANT, SAIMA R 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, TOBACCO USE DISORDER 03/26/2010 FELIPA FAST FOOD ATTENDANT, SAIMA R 530.81 ESOPHAGEAL REFLUX 03/26/2010 FELIPA FAST FOOD ATTENDANT, SAIMA R 719.46 PAIN IN JOINT, LOWER LEG 03/26/2010 FELIPA FAST FOOD ATTENDANT, SAIMA R 786.59 OTHER CHEST PAIN 03/26/2010 MANJIT FAST FOOD ATTENDANT, PRITESH 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, TOBACCO USE DISORDER 03/26/2010 MANJIT FAST FOOD ATTENDANT, PRITESH 530.81 ESOPHAGEAL REFLUX 03/26/2010 MANJIT FAST FOOD ATTENDANT, PRITESH 719.46 PAIN IN JOINT, LOWER LEG 03/26/2010 MANJIT FAST FOOD ATTENDANT, PRITESH 786.59 OTHER CHEST PAIN 03/26/2010 FELIPA FAST FOOD ATTENDANT, SAIMA R 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, TOBACCO USE DISORDER 03/26/2010 FELIPA FAST FOOD ATTENDANT, SAIMA R 530.81 ESOPHAGEAL REFLUX 03/26/2010 FELIPA FAST FOOD ATTENDANT, SAIMA R 719.46 PAIN IN JOINT, LOWER LEG 03/26/2010 FELIPA FAST FOOD ATTENDANT, SAIMA R 786.59 OTHER CHEST PAIN 04/16/2010 AQUILES OWEN APRN 558.9 OTHER AND UNSPECIFIED NONINFECTIOUS GASTROENTERITIS AND COLITIS 04/16/2010 AQUILES OWEN APRN 558.9 OTHER AND UNSPECIFIED NONINFECTIOUS GASTROENTERITIS AND COLITIS 04/16/2010 AQUILES OWEN APRN 558.9 OTHER AND UNSPECIFIED NONINFECTIOUS GASTROENTERITIS AND COLITIS 04/16/2010 ROSINA GONZALES MD 558.9 OTHER AND UNSPECIFIED NONINFECTIOUS GASTROENTERITIS AND COLITIS 04/16/2010 JUSTO HOROWITZ DO 558.9 OTHER AND UNSPECIFIED NONINFECTIOUS GASTROENTERITIS AND COLITIS 04/16/2010 JUSTO HOROWITZ DO 558.9 OTHER AND UNSPECIFIED NONINFECTIOUS GASTROENTERITIS AND COLITIS 04/16/2010 HOROWITZ DO, JUSTO K 558.9 OTHER AND UNSPECIFIED NONINFECTIOUS GASTROENTERITIS AND COLITIS 04/16/2010 PRO REED, LUPE Rosen 558.9 OTHER AND UNSPECIFIED NONINFECTIOUS GASTROENTERITIS AND COLITIS 04/16/2010 HOROWITZ DO, JUSTO K 558.9 OTHER AND UNSPECIFIED NONINFECTIOUS GASTROENTERITIS AND COLITIS 04/16/2010 HOROWITZ DO, JUSTO K 558.9 OTHER AND UNSPECIFIED NONINFECTIOUS GASTROENTERITIS AND COLITIS 04/16/2010 FELIPA FAST FOOD ATTENDANT, SAIMA R 558.9 OTHER AND UNSPECIFIED NONINFECTIOUS GASTROENTERITIS AND COLITIS 04/16/2010 FELIPA FAST FOOD ATTENDANT, SAIMA R 558.9 OTHER AND UNSPECIFIED NONINFECTIOUS GASTROENTERITIS AND COLITIS 04/16/2010 KOBY LAWSON[facility]STON 558.9 OTHER AND UNSPECIFIED NONINFECTIOUS GASTROENTERITIS AND COLITIS 04/16/2010 FELIPA FAST FOOD ATTENDANT, SAIMA R 558.9 OTHER AND UNSPECIFIED NONINFECTIOUS GASTROENTERITIS AND COLITIS 04/16/2010 ALEYDA WYNN APRN 558.9 OTHER AND UNSPECIFIED NONINFECTIOUS GASTROENTERITIS AND COLITIS 04/16/2010 FELIPA FAST FOOD ATTENDANT, SAIMA R 558.9 OTHER AND UNSPECIFIED NONINFECTIOUS GASTROENTERITIS AND COLITIS 04/16/2010 PRITESH SARAVIA APRN 558.9 OTHER AND UNSPECIFIED NONINFECTIOUS GASTROENTERITIS AND COLITIS 04/16/2010 FELIPA FAST FOOD ATTENDANT, SAIMA R 558.9 OTHER AND UNSPECIFIED NONINFECTIOUS GASTROENTERITIS AND COLITIS 05/22/2010 AQUILES OWEN APRN 49Alexander CHRONIC OBSTRUCTIVE PULMONARY DISEASE 05/22/2010 AQUILES OWEN APRN 786.05 SHORTNESS OF BREATH 05/22/2010 AQUILES OWEN APRN 49Alexander CHRONIC OBSTRUCTIVE PULMONARY DISEASE 05/22/2010 AQUILES OWEN APRN 786.05 SHORTNESS OF BREATH 05/22/2010 AQUILES OWEN APRN 49Alexander CHRONIC OBSTRUCTIVE PULMONARY DISEASE 05/22/2010 AQUILES OWEN APRN 786.05 SHORTNESS OF BREATH 05/22/2010 ROSINA GONZALES MD CHRONIC OBSTRUCTIVE PULMONARY DISEASE 05/22/2010 ROSINA GONZALES MD 786.05 SHORTNESS OF BREATH 05/22/2010 JUSTO HOROWITZ DO 496 CHRONIC OBSTRUCTIVE PULMONARY DISEASE 05/22/2010 SAHRA HOROWITZ DOA K 786.05 SHORTNESS OF BREATH 05/22/2010 HOROWITZ DO, JUSTO K 496 CHRONIC OBSTRUCTIVE PULMONARY DISEASE 05/22/2010 HOROWITZ DO, JUSTO K 786.05 SHORTNESS OF BREATH 05/22/2010 HOROWITZ DO, JUSTO K 496 CHRONIC OBSTRUCTIVE PULMONARY DISEASE 05/22/2010 HOROWITZ DO, JUSTO K 786.05 SHORTNESS OF BREATH 05/22/2010 PRO SURGICAL AIDE, LUPE B 496 CHRONIC OBSTRUCTIVE PULMONARY DISEASE 05/22/2010 PRO SURGICAL AIDE, LUPE B 786.05 SHORTNESS OF BREATH 05/22/2010 HOROWITZ DO, JUSTO K 496 CHRONIC OBSTRUCTIVE PULMONARY DISEASE 05/22/2010 HOROWITZ DO, JUSTO K 786.05 SHORTNESS OF BREATH 05/22/2010 HOROWITZ DO, JUSTO K 496 CHRONIC OBSTRUCTIVE PULMONARY DISEASE 05/22/2010 HOROWITZ DO, JUSTO K 786.05 SHORTNESS OF BREATH 05/22/2010 FELIPA HUYNH, SAIMA R 496 CHRONIC OBSTRUCTIVE PULMONARY DISEASE 05/22/2010 FELIPA HUYNH, SAIMA R 786.05 SHORTNESS OF BREATH 05/22/2010 FELIPA HUYNH, SAIMA R 496 CHRONIC OBSTRUCTIVE PULMONARY DISEASE 05/22/2010 FELIPA HUYNH SAIMA R 786.05 SHORTNESS OF BREATH 05/22/2010 KOBY LCMF, [place] W 496 CHRONIC OBSTRUCTIVE PULMONARY DISEASE 05/22/2010 KOBY LCMF, [place] W 786.05 SHORTNESS OF BREATH 05/22/2010 FELIPA FERNÁNDEZN, ASIMA R 496 CHRONIC OBSTRUCTIVE PULMONARY DISEASE 05/22/2010 FELIPA HUYNH, SAIMA R 786.05 SHORTNESS OF BREATH 05/22/2010 SARKIS WYNN APRNA L 496 CHRONIC OBSTRUCTIVE PULMONARY DISEASE 05/22/2010 TIANNA FERNÁNDEZN, ALEYDA L 786.05 SHORTNESS OF BREATH 05/22/2010 FELIPA FAST FOOD ATTENDANT SAIMA R 496 CHRONIC OBSTRUCTIVE PULMONARY DISEASE 05/22/2010 FELIPA HUYNH SAIMA R 786.05 SHORTNESS OF BREATH 05/22/2010 PRITESH SARAVIA APRN 496 CHRONIC OBSTRUCTIVE PULMONARY DISEASE 05/22/2010 MANJIT HUYNH PRITESH 786.05 SHORTNESS OF BREATH 05/22/2010 FELIPA HUYNH SAIMA R 496 CHRONIC AIRWAY OBSTRUCTION NOT ELSEWHERE CLASSIFIED 05/22/2010 FELIPA HUYNH SAIMA R 786.05 SHORTNESS OF BREATH 05/29/2010 AQUILES OWEN APRN 414.01 CAD 05/29/2010 AQUILES OWEN APRN 414.01 CAD 05/29/2010 BRAYDEN HUYNH, AQUILES Nuñez 414.01 CAD 05/29/2010 ROSINA GONZALES MD 414.01 CAD 05/29/2010 HOROWITZ DO, JUSTO K 414.01 CAD 05/29/2010 HOROWITZ DO, JUSTO K 414.01 CAD 05/29/2010 HOROWITZ DO, JUSTO K 414.01 CAD 05/29/2010 PRO SURGICAL AIDE, LUPE B 414.01 CAD 05/29/2010 HOROWITZ DO, JUSTO K 414.01 CAD 05/29/2010 HOROWITZ DO, JUSTO K 414.01 CAD 05/29/2010 FELIPA FAST FOOD ATTENDANT, SAIMA R 414.01 CAD 05/29/2010 FELIPA FAST FOOD ATTENDANT, SAIMA R 414.01 CAD 05/29/2010 KOBY [facility], [place] W 414.01 CAD 05/29/2010 FELIPA FAST FOOD ATTENDANT, SAIMA R 414.01 CAD 05/29/2010 MADDonald FAST FOOD ATTENDANT, ALEYDA Bennett 414.01 CAD 05/29/2010 FELIPA FAST FOOD ATTENDANT, SAIMA R 414.01 CAD 05/29/2010 MANJIT FAST FOOD ATTENDANT, PRITESH 414.01 CAD 05/29/2010 FELIPA FAST FOOD ATTENDANT, SAIMA R 414.01 CAD 05/31/2010 Ot 786.05 05/31/2010 Ot 786.50 07/16/2010 AQUILES OWEN APRN 216.9 BENIGN NEOPLASM OF SKIN SITE UNSPECIFIED 07/16/2010 AQUILES OWEN APRN 465.9 UPPER RESPIRATORY INFECTION 07/16/2010 AQUILES OWEN APRN 701.9 UNSPECIFIED HYPERTROPHIC AND ATROPHIC CONDITIONS OF SKIN 07/16/2010 AQUILES OWEN APRN 216.9 BENIGN NEOPLASM OF SKIN SITE UNSPECIFIED 07/16/2010 AQUILES OWEN APRN 465.9 UPPER RESPIRATORY INFECTION 07/16/2010 AQUILES OWEN APRN 701.9 UNSPECIFIED HYPERTROPHIC AND ATROPHIC CONDITIONS OF SKIN 07/16/2010 AQUILES OWEN APRN 216.9 BENIGN NEOPLASM OF SKIN SITE UNSPECIFIED 07/16/2010 AQUILES OWEN APRN 465.9 UPPER RESPIRATORY INFECTION 07/16/2010 AQUILES OWEN APRN 701.9 UNSPECIFIED HYPERTROPHIC AND ATROPHIC CONDITIONS OF SKIN 07/16/2010 ROSINA GONZALES MD 216.9 BENIGN NEOPLASM OF SKIN SITE UNSPECIFIED 07/16/2010 ROSINA GONZALES MD 465.9 UPPER RESPIRATORY INFECTION 07/16/2010 ROSINA GONZALES MD 701.9 UNSPECIFIED HYPERTROPHIC AND ATROPHIC CONDITIONS OF SKIN 07/16/2010 HOROWITZ DO, JUSTO K 216.9 BENIGN NEOPLASM OF SKIN SITE UNSPECIFIED 07/16/2010 HOROWITZ DO, JUSTO K 465.9 UPPER RESPIRATORY INFECTION 07/16/2010 HOROWITZ DO, JUSTO K 701.9 UNSPECIFIED HYPERTROPHIC AND ATROPHIC CONDITIONS OF SKIN 07/16/2010 HOROWITZ DO, JUSTO K 216.9 BENIGN NEOPLASM OF SKIN SITE UNSPECIFIED 07/16/2010 HOROWITZ DO, JUSTO K 465.9 UPPER RESPIRATORY INFECTION 07/16/2010 HOROWITZ DO, JUSTO K 701.9 UNSPECIFIED HYPERTROPHIC AND ATROPHIC CONDITIONS OF SKIN 07/16/2010 HOROWITZ DO, JUSTO K 216.9 BENIGN NEOPLASM OF SKIN SITE UNSPECIFIED 07/16/2010 HOROWITZ DO, JUSTO K 465.9 UPPER RESPIRATORY INFECTION 07/16/2010 HOROWITZ DO, JUSTO K 701.9 UNSPECIFIED HYPERTROPHIC AND ATROPHIC CONDITIONS OF SKIN 07/16/2010 PRO SURGICAL AIDE, LUPE B 216.9 BENIGN NEOPLASM OF SKIN SITE UNSPECIFIED 07/16/2010 PRO SURGICAL AIDE, LUPE B 465.9 UPPER RESPIRATORY INFECTION 07/16/2010 PRO SURGICAL AIDE, LUPE B 701.9 UNSPECIFIED HYPERTROPHIC AND ATROPHIC CONDITIONS OF SKIN 07/16/2010 HOROWITZ DO, JUSTO K 216.9 BENIGN NEOPLASM OF SKIN SITE UNSPECIFIED 07/16/2010 HOROWITZ DO, JUSTO K 465.9 UPPER RESPIRATORY INFECTION 07/16/2010 HOROWITZ DO, JUSTO K 701.9 UNSPECIFIED HYPERTROPHIC AND ATROPHIC CONDITIONS OF SKIN 07/16/2010 HOROWITZ DO, JUSTO K 216.9 BENIGN NEOPLASM OF SKIN SITE UNSPECIFIED 07/16/2010 HOROWITZ DO, JUSTO K 465.9 UPPER RESPIRATORY INFECTION 07/16/2010 HOROWITZ DO, JUSTO K 701.9 UNSPECIFIED HYPERTROPHIC AND ATROPHIC CONDITIONS OF SKIN 07/16/2010 FELIPA FAST FOOD ATTENDANT, SAIMA R 216.9 BENIGN NEOPLASM OF SKIN SITE UNSPECIFIED 07/16/2010 FELIPA FAST FOOD ATTENDANT, SAIMA R 465.9 UPPER RESPIRATORY INFECTION 07/16/2010 FELIPA FAST FOOD ATTENDANT, SAIMA R 701.9 UNSPECIFIED HYPERTROPHIC AND ATROPHIC CONDITIONS OF SKIN 07/16/2010 FELIPA FAST FOOD ATTENDANT, SAIMA R 216.9 BENIGN NEOPLASM OF SKIN SITE UNSPECIFIED 07/16/2010 FELIPA FAST FOOD ATTENDANT, SAIMA R 465.9 UPPER RESPIRATORY INFECTION 07/16/2010 FELIPA FAST FOOD ATTENDANT, SAIMA R 701.9 UNSPECIFIED HYPERTROPHIC AND ATROPHIC CONDITIONS OF SKIN 07/16/2010 KOBY LCMF, [place] W 216.9 BENIGN NEOPLASM OF SKIN SITE UNSPECIFIED 07/16/2010 KOBY LCMF, [place] W 465.9 UPPER RESPIRATORY INFECTION 07/16/2010 KOBY LCMF, [place] W 701.9 UNSPECIFIED HYPERTROPHIC AND ATROPHIC CONDITIONS OF SKIN 07/16/2010 FELIPA FAST FOOD ATTENDANT, SAIMA R 216.9 BENIGN NEOPLASM OF SKIN SITE UNSPECIFIED 07/16/2010 FELIPA FAST FOOD ATTENDANT, SAIMA R 465.9 UPPER RESPIRATORY INFECTION 07/16/2010 FELIPA FAST FOOD ATTENDANT, SAIMA R 701.9 UNSPECIFIED HYPERTROPHIC AND ATROPHIC CONDITIONS OF SKIN 07/16/2010 MADL FAST FOOD ATTENDANT, ALEYDA L 216.9 BENIGN NEOPLASM OF SKIN SITE UNSPECIFIED 07/16/2010 MADL FAST FOOD ATTENDANT, ALEYDA L 465.9 UPPER RESPIRATORY INFECTION 07/16/2010 MADL FAST FOOD ATTENDANT, ALEYDA L 701.9 UNSPECIFIED HYPERTROPHIC AND ATROPHIC CONDITIONS OF SKIN 07/16/2010 FELIPA FAST FOOD ATTENDANT, SAIMA R 216.9 BENIGN NEOPLASM OF SKIN SITE UNSPECIFIED 07/16/2010 FELIPA FAST FOOD ATTENDANT, SAIMA R 465.9 UPPER RESPIRATORY INFECTION 07/16/2010 FELIPA FAST FOOD ATTENDANT, SAIMA R 701.9 UNSPECIFIED HYPERTROPHIC AND ATROPHIC CONDITIONS OF SKIN 07/16/2010 MANJIT FAST FOOD ATTENDANT, PRITESH 216.9 BENIGN NEOPLASM OF SKIN SITE UNSPECIFIED 07/16/2010 MANJIT FAST FOOD ATTENDANT, PRITESH 465.9 UPPER RESPIRATORY INFECTION 07/16/2010 MANJIT FAST FOOD ATTENDANT, PRITESH 701.9 UNSPECIFIED HYPERTROPHIC AND ATROPHIC CONDITIONS OF SKIN 07/16/2010 FELIPA FAST FOOD ATTENDANT, SAIMA R 216.9 BENIGN NEOPLASM OF SKIN SITE UNSPECIFIED 07/16/2010 FELIPA FAST FOOD ATTENDANT, SAIMA R 465.9 UPPER RESPIRATORY INFECTION 07/16/2010 FELIPA FAST FOOD ATTENDANT, SAIMA R 701.9 UNSPECIFIED HYPERTROPHIC AND ATROPHIC CONDITIONS OF SKIN 09/02/2010 Ot 599.0 09/02/2010 Ot 599.70 05/21/2013 JUSTIN MADRIGAL APRN Ot 845.00 SPRAIN OF ANKLE NOS 05/21/2013 JUSTIN MADRIGAL APRN Ot 959.7 LOWER LEG INJURY NOS 05/21/2013 JUSTIN MADRIGAL FAST FOOD ATTENDANT Ot E000.8 OTHER EXTERNAL CAUSE STATUS 05/21/2013 JUSTIN MADRIGAL FAST FOOD ATTENDANT Ot E849.[address]/HIGHWAY 05/21/2013 JUSTIN MADRIGAL FAST FOOD ATTENDANT Ot E880.1 FALL ON OR FROM SIDEWALK CURB 07/20/2013 AQUILES OWEN APRN T 070.54 HEPATITIS C CHRONIC 07/20/2013 AQUILES OWEN APRN 070.54 HEPATITIS C CHRONIC 07/20/2013 AQUILES OWEN APRN 070.54 HEPATITIS C CHRONIC 07/20/2013 ROSINA GONZALES MD 070.54 HEPATITIS C CHRONIC 07/20/2013 HOROWITZ DO, JUSTO K 070.54 HEPATITIS C CHRONIC 07/20/2013 HOROWITZ DO, JUSTO K 070.54 HEPATITIS C CHRONIC 07/20/2013 HOROWITZ DO, JUSTO K 070.54 HEPATITIS C CHRONIC 07/20/2013 PRO REED, LUPE Rosen 070.54 HEPATITIS C CHRONIC 07/20/2013 HOROWITZ DO, JUSTO K 070.54 HEPATITIS C CHRONIC 07/20/2013 HOROWITZ DO, JUSTO K 070.54 HEPATITIS C CHRONIC 07/20/2013 FELIPA FAST FOOD ATTENDANT, SAIMA R 070.54 HEPATITIS C CHRONIC 07/20/2013 FELIPA FAST FOOD ATTENDANT, SAIMA R 070.54 HEPATITIS C CHRONIC 07/20/2013 KOBY LAWSONF, [place] Gregory 070.54 HEPATITIS C CHRONIC 07/20/2013 FELIPA FAST FOOD ATTENDANT, SAIMA R 070.54 HEPATITIS C CHRONIC 07/20/2013 TIANNA HUYNH, ALEYDA Bennett 070.54 HEPATITIS C CHRONIC 07/20/2013 FELIPA FAST FOOD ATTENDANT, SAIMA R 070.54 HEPATITIS C CHRONIC 07/20/2013 MANJIT FAST FOOD ATTENDANTPRITESH 070.54 HEPATITIS C CHRONIC 07/20/2013 FELIPA FAST FOOD ATTENDANT, SAIMA R 070.54 HEPATITIS C CHRONIC 08/03/2013 AQUILES OWEN APRN 593.9 RENAL INSUFFICIENCY 08/03/2013 AQUILES OWEN APRN 593.9 RENAL INSUFFICIENCY 08/03/2013 ROSINA GONZALES MD 593.9 RENAL INSUFFICIENCY 08/03/2013 HOROWITZ DO, JUSTO K 593.9 RENAL INSUFFICIENCY 08/03/2013 HOROWITZ DO, JUSTO K 593.9 RENAL INSUFFICIENCY 08/03/2013 HOROWITZ DO, JUSTO K 593.9 RENAL INSUFFICIENCY 08/03/2013 PRO LAWSONPC, LUPE B 593.9 RENAL INSUFFICIENCY 08/03/2013 HOROWITZ DO, JUSTO K 593.9 RENAL INSUFFICIENCY 08/03/2013 HOROWITZ DO, JUSTO K 593.9 RENAL INSUFFICIENCY 08/03/2013 FELIPA FAST FOOD ATTENDANT, SAIMA R 593.9 RENAL INSUFFICIENCY 08/03/2013 FELIPA FAST FOOD ATTENDANT, SAIMA R 593.9 RENAL INSUFFICIENCY 08/03/2013 KOBY FIELDS, [place] W 593.9 RENAL INSUFFICIENCY 08/03/2013 FELIPA FAST FOOD ATTENDANT, SAIMA R 593.9 RENAL INSUFFICIENCY 08/03/2013 MADL FAST FOOD ATTENDANT, ALEYDA L 593.9 RENAL INSUFFICIENCY 08/03/2013 FELIPA FAST FOOD ATTENDANT, SAIMA R 593.9 RENAL INSUFFICIENCY 08/03/2013 MANJIT FAST FOOD ATTENDANT, PRITESH 593.9 RENAL INSUFFICIENCY 08/03/2013 FELIPA FAST FOOD ATTENDANT, SAIMA R 593.9 RENAL INSUFFICIENCY 09/16/2013 CHRISTIAN SPENCER, ROSINA 466.0 ACUTE BRONCHITIS 09/16/2013 HOROWITZ DO, JUSTO K 466.0 ACUTE BRONCHITIS 09/16/2013 HOROWITZ DO, JUSTO K 466.0 ACUTE BRONCHITIS 09/16/2013 HOROWITZ DO, JUSTO K 466.0 ACUTE BRONCHITIS 09/16/2013 PRO LAWSONPC, LUPE B 466.0 ACUTE BRONCHITIS 09/16/2013 HOROWITZ DO, JUSTO K 466.0 ACUTE BRONCHITIS 09/16/2013 HOROWITZ DO, JUSTO K 466.0 ACUTE BRONCHITIS 09/16/2013 FELIPA FAST FOOD ATTENDANT, SAIMA R 466.0 ACUTE BRONCHITIS 09/16/2013 FELIPA FAST FOOD ATTENDANT, SAIMA R 466.0 ACUTE BRONCHITIS 09/16/2013 KOBY FIELDS, [place] W 466.0 ACUTE BRONCHITIS 09/16/2013 FELIPA FAST FOOD ATTENDANT, SAIMA R 466.0 ACUTE BRONCHITIS 09/16/2013 MADL FAST FOOD ATTENDANT, ALEYDA L 466.0 ACUTE BRONCHITIS 09/16/2013 FELIPA FAST FOOD ATTENDANT, SAIMA R 466.0 ACUTE BRONCHITIS 09/16/2013 MANJIT FAST FOOD ATTENDANT, PRITESH 466.0 ACUTE BRONCHITIS 09/16/2013 FELIPA FAST FOOD ATTENDANT, SAIMA R 466.0 ACUTE BRONCHITIS 09/20/2013 DAVID SPENCER, JOBY Bernabe Ot 780.60 FEVER, UNSPECIFIED 09/20/2013 DAVID SPENCER, JOBY Bernabe Ot 786.2 COUGH 10/07/2013 HOROWITZ SAHRA ABDALLAA K 709.9 UNSPECIFIED DISORDER OF SKIN AND SUBCUTANEOUS TISSUE 10/07/2013 HOROWITZ SAHRA ABDALLAA K 709.9 UNSPECIFIED DISORDER OF SKIN AND SUBCUTANEOUS TISSUE 10/07/2013 HOROWITZ SAHRA ABDALLAA K 709.9 UNSPECIFIED DISORDER OF SKIN AND SUBCUTANEOUS TISSUE 10/07/2013 PRO LAWSONPC, LUPE Rosen 709.9 UNSPECIFIED DISORDER OF SKIN AND SUBCUTANEOUS TISSUE 10/07/2013 SAHRA HOROWITZ DOA K 709.9 UNSPECIFIED DISORDER OF SKIN AND SUBCUTANEOUS TISSUE 10/07/2013 SAHRA HOROWITZ DOA K 709.9 UNSPECIFIED DISORDER OF SKIN AND SUBCUTANEOUS TISSUE 10/07/2013 FELIPA FAST FOOD ATTENDANT, SAIMA R 709.9 UNSPECIFIED DISORDER OF SKIN AND SUBCUTANEOUS TISSUE 10/07/2013 FELIPA FERNÁNDEZN, SAIMA R 709.9 UNSPECIFIED DISORDER OF SKIN AND SUBCUTANEOUS TISSUE 10/07/2013 KOBY LAWSON, [place] Gregory 709.9 UNSPECIFIED DISORDER OF SKIN AND SUBCUTANEOUS TISSUE 10/07/2013 FELIPA FERNÁNDEZN, SAIMA R 709.9 UNSPECIFIED DISORDER OF SKIN AND SUBCUTANEOUS TISSUE 10/07/2013 ALEYDA WYNN APRN 709.9 UNSPECIFIED DISORDER OF SKIN AND SUBCUTANEOUS TISSUE 10/07/2013 FELIPA HUYNH, SAIMA R 709.9 UNSPECIFIED DISORDER OF SKIN AND SUBCUTANEOUS TISSUE 10/07/2013 PRITESH SARAVIA APRN 709.9 UNSPECIFIED DISORDER OF SKIN AND SUBCUTANEOUS TISSUE 10/07/2013 FELIPA HUYNH, SAIMA R 709.9 UNSPECIFIED DISORDER OF SKIN AND SUBCUTANEOUS TISSUE 10/21/2013 DOUGLAS CARDENAS MD Ot 041.49 OTHER AND UNSPECIFIED ESCHERICHIA COLI [ 10/21/2013 DOUGLAS CARDENAS MD Ot 599.0 URIN TRACT INFECTION NOS 10/21/2013 DOUGLAS CARDENAS MD Ot 807.01 FRACTURE ONE RIB-CLOSED 10/21/2013 DOUGLAS CARDENAS MD Ot 959.11 OT INJURY OF CHEST WALL 10/21/2013 DOUGLAS CARDENAS MD Ot E000.8 OTHER EXTERNAL CAUSE STATUS 10/21/2013 DOUGLAS CARDENAS MD, Ot E815.0 MV RIP W OTH OBJ-BAR STEWARD 11/28/2013 HOROWITZ DO JUSTO K 338.29 OTHER CHRONIC PAIN 11/28/2013 HOROWITZ DO JUSTO K V58.69 LONG-TERM (CURRENT) USE OF OTHER MEDICATIONS 11/28/2013 PRO SURGICAL AIDE, LUPE B 338.29 OTHER CHRONIC PAIN 11/28/2013 PRO SURGICAL AIDE, LUPE B V58.69 LONG-TERM (CURRENT) USE OF OTHER MEDICATIONS 11/28/2013 HOROWITZ DO JUSTO K 338.29 OTHER CHRONIC PAIN 11/28/2013 HOROWITZ DO JUSTO K V58.69 LONG-TERM (CURRENT) USE OF OTHER MEDICATIONS 11/28/2013 HOROWITZ DO JUSTO K 338.29 OTHER CHRONIC PAIN 11/28/2013 HOROWITZ DO, JUSTO K V58.69 LONG-TERM (CURRENT) USE OF OTHER MEDICATIONS 11/28/2013 FELIPA HUYNH SAIMA R 338.29 OTHER CHRONIC PAIN 11/28/2013 FELIPA HUYNH SAIMA R V58.69 LONG-TERM (CURRENT) USE OF OTHER MEDICATIONS 11/28/2013 FELIPA HUYNH SAIMA R 338.29 OTHER CHRONIC PAIN 11/28/2013 FELIPA HUYNH SAIMA R V58.69 LONG-TERM (CURRENT) USE OF OTHER MEDICATIONS 11/28/2013 KOBY MACEDOF, [place] W 338.29 OTHER CHRONIC PAIN 11/28/2013 KOBY LAWSONMF, [place] W V58.69 LONG-TERM (CURRENT) USE OF OTHER MEDICATIONS 11/28/2013 FELIPA HUYNH SAIMA R 338.29 OTHER CHRONIC PAIN 11/28/2013 LUZ MARIA LEO APRNINA R V58.69 LONG-TERM (CURRENT) USE OF OTHER MEDICATIONS 11/28/2013 MADDonald HUYNH ALEYDA L 338.29 OTHER CHRONIC PAIN 11/28/2013 MADL FAST FOOD ATTENDANT, ALEYDA L V58.69 LONG-TERM (CURRENT) USE OF OTHER MEDICATIONS 11/28/2013 FELIPA HUYNH SAIMA R 338.29 OTHER CHRONIC PAIN 11/28/2013 FELIPA HUYNH SAIMA R V58.69 LONG-TERM (CURRENT) USE OF OTHER MEDICATIONS 11/28/2013 MANJIT FAST FOOD ATTENDANT, PRITESH 338.29 OTHER CHRONIC PAIN 11/28/2013 MANJIT HUYNH PRITESH V58.69 LONG-TERM (CURRENT) USE OF OTHER MEDICATIONS 11/28/2013 FELIPA FAST FOOD ATTENDANT, SAIMA R 338.29 OTHER CHRONIC PAIN 11/28/2013 FELIPA FAST FOOD ATTENDANT, SAIMA R V58.69 LONG-TERM (CURRENT) USE OF OTHER MEDICATIONS 12/12/2013 PRO REED, LUPE Rosen 296.52 MO BIPOLAR I DEPRESSED MODERATE 12/12/2013 CARLOS MANUEL ABDALLA JUSTO K 296.52 MO BIPOLAR I DEPRESSED MODERATE 12/12/2013 CARLOS MANUEL ABDALLA JUSTO K 296.52 MO BIPOLAR I DEPRESSED MODERATE 12/12/2013 FELIPA FAST FOOD ATTENDANT, SAIMA R 296.52 MO BIPOLAR I DEPRESSED MODERATE 12/12/2013 FELIPA FAST FOOD ATTENDANT, SAIMA R 296.52 MO BIPOLAR I DEPRESSED MODERATE 12/12/2013 KOBY LAWSON, [place] W 296.52 MO BIPOLAR I DEPRESSED MODERATE 12/12/2013 FELIPA FAST FOOD ATTENDANT, SAIMA R 296.52 MO BIPOLAR I DEPRESSED MODERATE 12/12/2013 ALEYDA WYNN APRN 296.52 MO BIPOLAR I DEPRESSED MODERATE 12/12/2013 FELIPA FAST FOOD ATTENDANT, SAIMA R 296.52 MO BIPOLAR I DEPRESSED MODERATE 12/12/2013 PRITESH SARAVIA APRN 296.52 MO BIPOLAR I DEPRESSED MODERATE 12/12/2013 FELIPA FAST FOOD ATTENDANT, SAIMA R 296.52 MO BIPOLAR I DEPRESSED MODERATE 07/18/2014 DAVID SPENCER, JOBY Bernabe Ot 719.41 JOINT PAIN-SHLDER 07/18/2014 DAVID SPENCER, JOBY Bernabe Ot 723.1 CERVICALGIA 08/10/2014 SAHRA HOROWITZ DOA K 719.41 PAIN IN JOINT INVOLVING SHOULDER REGION 08/10/2014 SAHRA HOROWITZ DOA K 782.0 DISTURBANCE OF SKIN SENSATION 08/10/2014 FELIPA FERNÁNDEZN, SAIMA R 719.41 PAIN IN JOINT INVOLVING SHOULDER REGION 08/10/2014 FELIPA FAST FOOD ATTENDANT, SAIMA R 782.0 DISTURBANCE OF SKIN SENSATION 08/10/2014 FELIPA FAST FOOD ATTENDANT, SAIMA R 719.41 PAIN IN JOINT INVOLVING SHOULDER REGION 08/10/2014 FELIPA FAST FOOD ATTENDANT, SAIMA R 782.0 DISTURBANCE OF SKIN SENSATION 08/10/2014 KOBY LAWSONF, [place] Gregory 719.41 PAIN IN JOINT INVOLVING SHOULDER REGION 08/10/2014 KOBY LAWSONF, [place] Gregory 782.0 DISTURBANCE OF SKIN SENSATION 08/10/2014 FELIPA FERNÁNDEZN, SAIMA R 719.41 PAIN IN JOINT INVOLVING SHOULDER REGION 08/10/2014 FELIPA HUYNH, SAIMA R 782.0 DISTURBANCE OF SKIN SENSATION 08/10/2014 SARKIS WYNN APRNA L 719.41 PAIN IN JOINT INVOLVING SHOULDER REGION 08/10/2014 MADL ONEYDA HUYNHWNYA L 782.0 DISTURBANCE OF SKIN SENSATION 08/10/2014 FELIPA HUYNH SAIMA R 719.41 PAIN IN JOINT INVOLVING SHOULDER REGION 08/10/2014 FELIPA HUYNH SAIMA R 782.0 DISTURBANCE OF SKIN SENSATION 08/10/2014 MANJIT FAST FOOD ATTENDANT, PRITESH 719.41 PAIN IN JOINT INVOLVING SHOULDER REGION 08/10/2014 MANJIT FAST FOOD ATTENDANT, PRITESH 782.0 DISTURBANCE OF SKIN SENSATION 08/10/2014 FELIPA HUYNH SAIMA R 719.41 PAIN IN JOINT INVOLVING SHOULDER REGION 08/10/2014 FELIPA HUYNH SAIMA R 782.0 DISTURBANCE OF SKIN SENSATION 09/01/2014 FELIPA HUYNH SAIMA R 296.32 MO DEPRESSIVE RECURRENT MODERATE 09/01/2014 FELIPA HUYNH SAIMA R 296.32 MO DEPRESSIVE RECURRENT MODERATE 09/01/2014 [facility], [place] W 296.32 MO DEPRESSIVE RECURRENT MODERATE 09/01/2014 FELIPA HUYNH SAIMA R 296.32 MO DEPRESSIVE RECURRENT MODERATE 09/01/2014 SARKIS WYNN APRNA L 296.32 MO DEPRESSIVE RECURRENT MODERATE 09/01/2014 FELIPA HUYNH SAIMA R 296.32 MO DEPRESSIVE RECURRENT MODERATE 09/01/2014 MANJIT FAST FOOD ATTENDANT, PRITESH 296.32 MO DEPRESSIVE RECURRENT MODERATE 09/01/2014 FELIPA HUYNH SAIMA R 296.32 MO DEPRESSIVE RECURRENT MODERATE 09/13/2014 FELIPA HUYNH SAIMA R 723.1 CERVICALGIA 09/13/2014 [facility], [place] W 311 DEPRESSIVE DISORDER NOS 09/13/2014 [facility] [place] W 723.1 CERVICALGIA 09/13/2014 FELIPA HUYNH SAIMA R 311 DEPRESSIVE DISORDER NOS 09/13/2014 FELIPA HUYNH SAIMA R 723.1 CERVICALGIA 09/13/2014 ONEYDA WYNN APRNWNYA L 311 DEPRESSIVE DISORDER NOS 09/13/2014 ONEYDA WYNN APRNWNYA L 723.1 CERVICALGIA 09/13/2014 FELIPA HUYNH SAIMA R 311 DEPRESSIVE DISORDER NOS 09/13/2014 FELIPA FAST FOOD ATTENDANT, SAIMA R 723.1 CERVICALGIA 09/13/2014 MANJIT FAST FOOD ATTENDANT, PRITESH 311 DEPRESSIVE DISORDER NOS 09/13/2014 MANJIT FAST FOOD ATTENDANT, PRITESH 723.1 CERVICALGIA 09/13/2014 FELIPA FAST FOOD ATTENDANT, SAIMA R 311 DEPRESSIVE DISORDER NOS 09/13/2014 FELIPA FAST FOOD ATTENDANT, SAIMA R 723.1 CERVICALGIA 10/09/2014 TIANNA HUYNH, ALEYDA L 465.9 UPPER RESPIRATORY INFECTION 10/09/2014 FELIPA FAST FOOD ATTENDANT, SAIMA R 465.9 UPPER RESPIRATORY INFECTION 10/09/2014 MANJIT FAST FOOD ATTENDANT, PRITESH 465.9 UPPER RESPIRATORY INFECTION 10/09/2014 FELIPA FERNÁNDEZN, SAIMA R 465.9 UPPER RESPIRATORY INFECTION 11/08/2014 FELIPA FERNÁNDEZN, SAIMA R 627.4 SYMPTOMATIC STATES ASSOCIATED WITH ARTIFICIAL MENOPAUSE 11/08/2014 MANJIT HUYNH, PRITESH 627.4 SYMPTOMATIC STATES ASSOCIATED WITH ARTIFICIAL MENOPAUSE 11/08/2014 FELIPA HUYNH SAIMA R 627.4 SYMPTOMATIC STATES ASSOCIATED WITH ARTIFICIAL MENOPAUSE 11/16/2014 Ot 305.1 11/16/2014 Ot 401.1 11/16/2014 Ot 496 11/16/2014 Ot 530.81 11/16/2014 Ot 786.05 11/16/2014 Ot 786.59 11/16/2014 Ot V16.3 11/16/2014 Ot V76.12 11/16/2014 Ot 611.72 11/16/2014 LORIE SPENCER, BARTOLO Gregory Ot V76.12 11/16/2014 MICHAEL ALMEIDA CUSTOMER ACQUISITION SPECIALIST Ot 922.1 11/16/2014 MICHAEL ALMEIDA CUSTOMER ACQUISITION SPECIALIST Ot E008.1 11/16/2014 MICHAEL ALMEIDA CUSTOMER ACQUISITION SPECIALIST Ot E928.8 12/06/2014 FELIPA HUYNH SAIMA R 461.9 SINUSITIS ACUTE 12/06/2014 FELIPA HUYNH SAIMA R 477.9 ALLERGIC RHINITIS CAUSE UNSPECIFIED 12/06/2014 MANJIT FAST FOOD ATTENDANT, PRITESH 461.9 SINUSITIS ACUTE 12/06/2014 MANJIT FAST FOOD ATTENDANT, PRITESH 477.9 ALLERGIC RHINITIS CAUSE UNSPECIFIED 12/06/2014 FELIPA HUYNH SAIMA R 461.9 SINUSITIS ACUTE 12/06/2014 FELIPA HUYNH SIAMA R 477.9 ALLERGIC RHINITIS CAUSE UNSPECIFIED 12/09/2014 Ot 721.0 12/11/2014 Ot 305.1 12/11/2014 Ot 401.1 12/11/2014 Ot 496 12/11/2014 Ot 530.81 12/11/2014 Ot 786.05 12/11/2014 Ot 786.59 12/11/2014 Ot V16.3 12/11/2014 Ot V76.12 12/11/2014 Ot 611.72 12/11/2014 BARTOLO MELO MD Ot V76.12 12/11/2014 MICHAEL ALMEIDA CUSTOMER ACQUISITION SPECIALIST Ot 922.1 12/11/2014 MICHAEL ALMEIDA CUSTOMER ACQUISITION SPECIALIST Ot E008.1 12/11/2014 MICHAEL ALMEIDA CUSTOMER ACQUISITION SPECIALIST Ot E928.8 12/11/2014 ANI MEJIA MD Ot 723.1 12/11/2014 ANI MEJIA MD Ot 724.2 12/11/2014 ANI MEJIA MD Ot V57.1 12/11/2014 Ot 723.1 12/11/2014 Ot 721.0 12/11/2014 ANI MEJIA MD Ot 723.1 12/11/2014 ANI MEJIA MD Ot 724.2 12/11/2014 ANI MEJIA MD Ot V57.1 12/18/2014 ANI MEJIA MD Ot 723.1 12/18/2014 ANI MEJIA MD Ot 724.2 12/18/2014 ANI MEJIA MD Ot V57.1 12/19/2014 ANI MEJIA MD Ot 723.1 12/19/2014 ANI MEJIA MD Ot 724.2 12/19/2014 ANI MEJIA MD Ot V57.1 12/19/2014 ANI MEJIA MD Ot 723.1 12/19/2014 ANI MEJIA MD Ot 724.2 12/19/2014 ANI MEJIA MD Ot V57.1 12/20/2014 ANI MEJIA MD Ot 723.1 12/20/2014 ANI MEJIA MD Ot 724.2 12/20/2014 ANI MEJIA MD Ot V57.1 12/20/2014 ANI MEJIA MD Ot 723.1 12/20/2014 ANI MEJIA MD Ot 724.2 12/20/2014 ANI MEJIA MD, Ot V57.1 12/20/2014 ANI MEJIA MD, Ot 723.1 12/20/2014 ANI MEJIA MD Ot 724.2 12/20/2014 ANI MEJIA MD, Ot V57.1 12/21/2014 FELIPA FAST FOOD ATTENDANT, SAIMA R 461.8 OTHER ACUTE SINUSITIS 12/21/2014 FELIPA FAST FOOD ATTENDANT, SAIMA R 786.2 COUGH 12/21/2014 MANJIT FAST FOOD ATTENDANT, PRITESH 461.8 OTHER ACUTE SINUSITIS 12/21/2014 MANJIT FAST FOOD ATTENDANT, PRITESH 786.2 COUGH 12/21/2014 FELIPA FAST FOOD ATTENDANT, SAIMA R 461.8 OTHER ACUTE SINUSITIS 12/21/2014 FELIPA FAST FOOD ATTENDANT, SAIMA R 786.2 COUGH 12/21/2014 Ot 721.0 12/22/2014 MANJIT FAST FOOD ATTENDANT, PRITESH 296.90 MOOD DISORDER NOS 12/22/2014 FELIPA FAST FOOD ATTENDANT, SAIMA R 296.90 MOOD DISORDER NOS 01/02/2015 ANI MEJIA MD Ot 723.1 01/02/2015 ANI MEJIA MD, Ot 724.2 01/02/2015 ANI MEJIA MD, Ot V57.1 01/10/2015 FELIPA HUYNH, SAIMA R 692.9 DERMATITIS CONTACT UNSPECIFIED 01/19/2015 ANI MEJIA MD Ot 723.1 01/19/2015 ANI MEJIA MD, Ot 724.2 01/19/2015 ANI MEJIA MD, Ot V57.1 01/19/2015 ANI MEJIA MD Ot 723.1 01/19/2015 ANI MEJIA MD, Ot 724.2 01/19/2015 ANI MEJIA MD Ot V57.1 01/23/2015 ANI MEJIA MD Ot 723.1 CERVICALGIA 01/23/2015 ANI MEJIA MD Ot 724.2 LUMBAGO 01/23/2015 ANI MEJIA MD Ot V57.1 PHYSICAL THERAPY NEC 02/09/2015 ERROL MARCOS MD Ot 401.9 02/09/2015 ERROL MARCOS MD Ot 414.9 02/09/2015 ERROL MARCOS MD Ot 496 02/09/2015 KELSIE MARCOS MDHAR J Ot 785.1 04/17/2015 Ot 305.1 04/17/2015 Ot 401.1 04/17/2015 Ot 496 04/17/2015 Ot 530.81 04/17/2015 Ot 786.05 04/17/2015 Ot 786.59 04/17/2015 Ot V16.3 04/17/2015 Ot V76.12 04/17/2015 Ot 611.72 04/17/2015 BARTOLO MELO MD Ot V76.12 04/17/2015 ALMEIDAMICHAEL CUSTOMER ACQUISITION SPECIALIST Ot 922.1 04/17/2015 ALMEIDAMICHAEL CUSTOMER ACQUISITION SPECIALIST Ot E008.1 04/17/2015 ALMEIDAMICHAEL CUSTOMER ACQUISITION SPECIALIST Ot E928.8 04/17/2015 Ot 723.1 04/17/2015 Ot 721.0 04/17/2015 ERROL MARCOS MD Ot 401.9 04/17/2015 ERROL MARCOS MD Ot 414.9 04/17/2015 ERROL MARCOS MD Ot 496 04/17/2015 ERROL MARCOS MD Ot 785.1 04/17/2015 ZAKI RODAS Ot 989.5 TOXIC EFFECT VENOM 04/17/2015 ZAKI RODAS Ot E000.8 OTHER EXTERNAL CAUSE STATUS 04/17/2015 ZAKI RODAS Ot E905.3 HORNET/WASP/BEE STING 11/14/2015 Ot 305.1 11/14/2015 Ot 401.1 11/14/2015 Ot 496 11/14/2015 Ot 530.81 11/14/2015 Ot 786.05 11/14/2015 Ot 786.59 11/14/2015 Ot V16.3 11/14/2015 Ot V76.12 11/14/2015 Ot 611.72 11/14/2015 LORIE SPENCER, BARTOLO Gregory Ot V76.12 11/14/2015 MICHAEL ALMEIDA CUSTOMER ACQUISITION SPECIALIST Ot 922.1 11/14/2015 ALMEIDAMICHAEL CUSTOMER ACQUISITION SPECIALIST Ot E008.1 11/14/2015 MICHAEL ALMEIDA CUSTOMER ACQUISITION SPECIALIST Ot E928.8 11/14/2015 Ot 723.1 11/14/2015 Ot 721.0 11/14/2015 ERROL MARCOS MD Ot 401.9 11/14/2015 ERROL MARCOS MD Ot 414.9 11/14/2015 ERROL MARCOS MD Ot 496 11/14/2015 ERROL MARCOS MD Ot 785.1 12/18/2015 KATIANA SPENCER, NELSY Boyd Ot M25.512 01/10/2016 KIAH VENEGAS Ot F41.8 OTHER SPECIFIED ANXIETY DISORDERS 01/10/2016 KIAH VENEGAS Ot I25.10 ATHSCL HEART DISEASE OF [place] CORONARY 01/10/2016 KIAH VENEGAS Ot J44.9 CHRONIC OBSTRUCTIVE PULMONARY DISEASE, U 01/10/2016 KIAH VENEGAS Ot R00.2 PALPITATIONS 01/10/2016 KIAH VENEGAS Ot F41.8 OTHER SPECIFIED ANXIETY DISORDERS 01/10/2016 KIAH VENEGAS Ot I25.10 ATHSCL HEART DISEASE OF [place] CORONARY 01/10/2016 KIAH VENEGAS Ot J44.9 CHRONIC OBSTRUCTIVE PULMONARY DISEASE, U 01/10/2016 KIAH VENEGAS Ot R00.2 PALPITATIONS 01/18/2016 ERROL MARCOS MD Ot E78.5 HYPERLIPIDEMIA, UNSPECIFIED 01/18/2016 ERROL MARCOS MD Ot F41.8 OTHER SPECIFIED ANXIETY DISORDERS 01/18/2016 ERROL MARCOS MD Ot I10 ESSENTIAL (PRIMARY) HYPERTENSION 01/18/2016 ERROL MARCOS MD Ot I25.10 ATHSCL HEART DISEASE OF [place] CORONARY 01/18/2016 ERROL MARCOS MD Ot J44.9 CHRONIC OBSTRUCTIVE PULMONARY DISEASE, U 01/18/2016 ERROL MARCOS MD Ot K21.9 GASTRO-ESOPHAGEAL REFLUX DISEASE WITHOUT 01/18/2016 ERROL MARCOS MD Ot R07.9 CHEST PAIN, UNSPECIFIED 01/18/2016 ERROL MARCOS MD Ot R94.39 ABNORMAL RESULT OF OTHER CARDIOVASCULAR 01/18/2016 ERROL MARCOS MD Ot Z72.0 TOBACCO USE 01/18/2016 ERROL MARCOS MD Ot Z79.899 OTHER MEDICAL OFFICE SECRETARY (CURRENT) DRUG THERAPY 01/24/2016 KIAH VENEGAS Ot F41.8 OTHER SPECIFIED ANXIETY DISORDERS 01/24/2016 KIAH VENEGAS Ot I25.10 ATHSCL HEART DISEASE OF [place] CORONARY 01/24/2016 KIAH VENEGAS Ot J44.9 CHRONIC OBSTRUCTIVE PULMONARY DISEASE, U 01/24/2016 KIAH VENEGAS Ot R00.2 PALPITATIONS 01/25/2016 ERROL MARCOS MD Ot E78.5 HYPERLIPIDEMIA, UNSPECIFIED 01/25/2016 ERROL MARCOS MD Ot F41.8 OTHER SPECIFIED ANXIETY DISORDERS 01/25/2016 ERROL MARCOS MD Ot I10 ESSENTIAL (PRIMARY) HYPERTENSION 01/25/2016 ERROL MARCOS MD Ot I25.10 ATHSCL HEART DISEASE OF [place] CORONARY 01/25/2016 ERROL MARCOS MD Ot J44.9 CHRONIC OBSTRUCTIVE PULMONARY DISEASE, U 01/25/2016 ERROL MARCOS MD Ot K21.9 GASTRO-ESOPHAGEAL REFLUX DISEASE WITHOUT 01/25/2016 ERROL MARCOS MD Ot R07.9 CHEST PAIN, UNSPECIFIED 01/25/2016 ERROL MARCOS MD Ot R94.39 ABNORMAL RESULT OF OTHER CARDIOVASCULAR 01/25/2016 ERROL MARCOS MD Ot Z72.0 TOBACCO USE 01/25/2016 ERROL MARCOS MD Ot Z79.899 OTHER MEDICAL OFFICE SECRETARY (CURRENT) DRUG THERAPY 02/07/2016 KIAH VENEGAS Ot F41.8 OTHER SPECIFIED ANXIETY DISORDERS 02/07/2016 KIAH VENEGAS Ot I25.10 ATHSCL HEART DISEASE OF [place] CORONARY 02/07/2016 KIAH VENEGAS Ot J44.9 CHRONIC OBSTRUCTIVE PULMONARY DISEASE, U 02/07/2016 KIAH VENEGAS Ot R00.2 PALPITATIONS 03/30/2016 KIAH VENEGAS Ot F41.8 OTHER SPECIFIED ANXIETY DISORDERS 03/30/2016 KIAH VENEGAS Ot I25.10 ATHSCL HEART DISEASE OF [place] CORONARY 03/30/2016 KIAH VENEGAS Ot J44.9 CHRONIC OBSTRUCTIVE PULMONARY DISEASE, U 03/30/2016 KIAH VENEGAS Ot R00.2 PALPITATIONS 07/15/2016 KIAH VENEGAS Ot E78.2 MIXED HYPERLIPIDEMIA 07/15/2016 KIAH VENEGAS Ot E78.2 MIXED HYPERLIPIDEMIA 07/16/2016 Ot V16.3 FAMILY HX- BREAST MALIG 07/16/2016 Ot V76.12 OTH SCREEN MAMMO-MALIGN NEOPLASM OF [place] 07/16/2016 Ot 611.72 LUMP OR MASS IN BREAST 07/16/2016 LORIE SPENCER, BARTOLO Gregory Ot V76.12 OTH SCREEN MAMMO-MALIGN NEOPLASM OF [place] 07/16/2016 MICHAEL ALMEIDA CUSTOMER ACQUISITION SPECIALIST Ot 922.1 CONTUSION OF CHEST WALL 07/16/2016 MICHAEL ALMEIDA CUSTOMER ACQUISITION SPECIALIST Ot E008.1 ACTIVITIES INVOLVING WRESTLING 07/16/2016 MICHAEL ALMEIDA CUSTOMER ACQUISITION SPECIALIST Ot E928.8 ACCIDENT NEC 07/16/2016 Ot 723.1 CERVICALGIA 07/16/2016 Ot 721.0 CERVICAL SPONDYLOSIS 07/16/2016 ERROL MARCOS MD Ot 401.9 HYPERTENSION NOS 07/16/2016 ERROL MARCOS MD Ot 414.9 CHR ISCHEMIC HRT DIS NOS 07/16/2016 ERROL MARCOS MD Ot 496 CHR AIRWAY OBSTRUCT NEC 07/16/2016 ERROL MARCOS MD Ot 785.1 PALPITATIONS 07/16/2016 KATIANA SPENCER, NELSY Boyd Ot M25.512 PAIN IN LEFT SHOULDER 07/16/2016 KIAH VENEGAS Ot F41.8 OTHER SPECIFIED ANXIETY DISORDERS 07/16/2016 KIAH VENEGAS Ot I25.10 ATHSCL HEART DISEASE OF [place] CORONARY 07/16/2016 KIAH VENEGAS Ot J44.9 CHRONIC OBSTRUCTIVE PULMONARY DISEASE, U 07/16/2016 KIAH VENEGAS Ot R00.2 PALPITATIONS 07/16/2016 KIAH VENEGAS Ot F41.8 OTHER SPECIFIED ANXIETY DISORDERS 07/16/2016 KIAH VENEGAS Ot I25.10 ATHSCL HEART DISEASE OF [place] CORONARY 07/16/2016 KIAH VENEGAS Ot J44.9 CHRONIC OBSTRUCTIVE PULMONARY DISEASE, U 07/16/2016 KIAH VENEGAS Ot R00.2 PALPITATIONS 07/16/2016 KIAH VENEGAS Ot E78.2 MIXED HYPERLIPIDEMIA 07/18/2016 KIAH VENEGAS Ot E78.2 MIXED HYPERLIPIDEMIA 07/25/2016 Ot V16.3 FAMILY HX- BREAST MALIG 07/25/2016 Ot V76.12 OTH SCREEN MAMMO-MALIGN NEOPLASM OF [place] 07/25/2016 Ot 611.72 LUMP OR MASS IN BREAST 07/25/2016 LORIE SPENCER, BARTOLO Gregory Ot V76.12 OTH SCREEN MAMMO-MALIGN NEOPLASM OF [place] 07/25/2016 MICHAEL ALMEIDA CUSTOMER ACQUISITION SPECIALIST Ot 922.1 CONTUSION OF CHEST WALL 07/25/2016 MICHAEL ALMEIDA CUSTOMER ACQUISITION SPECIALIST Ot E008.1 ACTIVITIES INVOLVING WRESTLING 07/25/2016 MICHAEL ALMEIDA CUSTOMER ACQUISITION SPECIALIST Ot E928.8 ACCIDENT NEC 07/25/2016 Ot 723.1 CERVICALGIA 07/25/2016 Ot 721.0 CERVICAL SPONDYLOSIS 07/25/2016 HEMANT SPENCER, ERROL Kim Ot 401.9 HYPERTENSION NOS 07/25/2016 HEMANT SPENCER, ERROL Kim Ot 414.9 CHR ISCHEMIC HRT DIS NOS 07/25/2016 HEMANT SPENCER, ERROL Kim Ot 496 CHR AIRWAY OBSTRUCT NEC 07/25/2016 HEMANT SPENCER, ERROL Kim Ot 785.1 PALPITATIONS 07/25/2016 KATIANA SPENCER, NELSY Boyd Ot M25.512 PAIN IN LEFT SHOULDER 07/25/2016 KIAH VENEGAS Ot F41.8 OTHER SPECIFIED ANXIETY DISORDERS 07/25/2016 KIAH VENEGAS Ot I25.10 ATHSCL HEART DISEASE OF [place] CORONARY 07/25/2016 KIAH VENEGAS Ot J44.9 CHRONIC OBSTRUCTIVE PULMONARY DISEASE, U 07/25/2016 KIAH VENEGAS Ot R00.2 PALPITATIONS 07/25/2016 KIAH VENEGAS Ot F41.8 OTHER SPECIFIED ANXIETY DISORDERS 07/25/2016 KIAH VENEGAS Ot I25.10 ATHSCL HEART DISEASE OF [place] CORONARY 07/25/2016 KIAH VENEGAS Ot J44.9 CHRONIC OBSTRUCTIVE PULMONARY DISEASE, U 07/25/2016 KIAH VENEGAS Ot R00.2 PALPITATIONS 07/25/2016 KIAH VENEGAS Ot E78.2 MIXED HYPERLIPIDEMIA 08/13/2016 KIAH VENEGAS Ot E78.2 MIXED HYPERLIPIDEMIA 10/23/2016 KIAH VENEGAS Ot E78.2 MIXED HYPERLIPIDEMIA 10/23/2016 KIAH VENEGAS Ot I10 ESSENTIAL (PRIMARY) HYPERTENSION 10/23/2016 KIAH VENEGAS Ot I25.10 ATHSCL HEART DISEASE OF [place] CORONARY 11/11/2016 KIAH VENEGAS Ot E78.2 MIXED HYPERLIPIDEMIA 11/11/2016 KIAH VENEGAS Ot I10 ESSENTIAL (PRIMARY) HYPERTENSION 11/11/2016 KIAH VENEGAS Ot I25.10 ATHSCL HEART DISEASE OF [place] CORONARY 11/20/2016 KIAH VENEGAS Ot F41.8 OTHER SPECIFIED ANXIETY DISORDERS 11/20/2016 KIAH VENEGAS Ot I25.10 ATHSCL HEART DISEASE OF [place] CORONARY 11/20/2016 KIAH VENEGAS Ot J44.9 CHRONIC OBSTRUCTIVE PULMONARY DISEASE, U 11/20/2016 KIAH VENEGAS Ot R00.2 PALPITATIONS 11/20/2016 CHRISTY DOTY MD Ot I10 ESSENTIAL (PRIMARY) HYPERTENSION 11/20/2016 CHRISTY DOTY MD Ot J44.9 CHRONIC OBSTRUCTIVE PULMONARY DISEASE, U 11/20/2016 CHRISTY DOTY MD Ot R55 SYNCOPE AND COLLAPSE 11/20/2016 CHRISTY DOTY MD Ot Z79.899 OTHER MEDICAL OFFICE SECRETARY (CURRENT) DRUG THERAPY 11/21/2016 CHRISTY DOTY MD Ot I10 ESSENTIAL (PRIMARY) HYPERTENSION 11/21/2016 CHRISTY DOTY MD Ot J44.9 CHRONIC OBSTRUCTIVE PULMONARY DISEASE, U 11/21/2016 CHRISTY DOTY MD Ot R55 SYNCOPE AND COLLAPSE 11/21/2016 CHRISTY DOTY MD Ot Z79.899 OTHER FPC (CURRENT) DRUG THERAPY 12/05/2016 CHRISTY DOTY MD Ot I10 ESSENTIAL (PRIMARY) HYPERTENSION 12/05/2016 CHRISTY DOTY MD Ot J44.9 CHRONIC OBSTRUCTIVE PULMONARY DISEASE, U 12/05/2016 CHRISTY DOTY MD Ot R55 SYNCOPE AND COLLAPSE 12/05/2016 CHRISTY DOTY MD Ot Z79.899 OTHER MEDICAL OFFICE SECRETARY (CURRENT) DRUG THERAPY 02/25/2017 Ot 611.72 LUMP OR MASS IN BREAST 02/25/2017 BARTOLO MELO MD Ot V76.12 OTH SCREEN MAMMO-MALIGN NEOPLASM OF [place] 02/25/2017 MICHAEL ALMEIDA CUSTOMER ACQUISITION SPECIALIST Ot 922.1 CONTUSION OF CHEST WALL 02/25/2017 MICHAEL ALMEIDA CUSTOMER ACQUISITION SPECIALIST Ot E008.1 ACTIVITIES INVOLVING WRESTLING 02/25/2017 MICHAEL ALMEIDA CUSTOMER ACQUISITION SPECIALIST Ot E928.8 ACCIDENT NEC 02/25/2017 Ot 723.1 CERVICALGIA 02/25/2017 Ot 721.0 CERVICAL SPONDYLOSIS 02/25/2017 ERROL MARCOS MD Ot 401.9 HYPERTENSION NOS 02/25/2017 ERROL MARCOS MD Ot 414.9 CHR ISCHEMIC HRT DIS NOS 02/25/2017 ERROL MARCOS MD Ot 496 CHR AIRWAY OBSTRUCT NEC 02/25/2017 ERROL MARCOS MD Ot 785.1 PALPITATIONS 02/25/2017 KATIANA SPENCER, NELSY Boyd Ot M25.512 PAIN IN LEFT SHOULDER 02/25/2017 KIAH VENEGAS Ot F41.8 OTHER SPECIFIED ANXIETY DISORDERS 02/25/2017 KIAH VENEGAS Ot I25.10 ATHSCL HEART DISEASE OF [place] CORONARY 02/25/2017 KIAH VENEGAS Ot J44.9 CHRONIC OBSTRUCTIVE PULMONARY DISEASE, U 02/25/2017 KIAH VENEGAS Ot R00.2 PALPITATIONS 02/25/2017 KIAH VENEGAS Ot F41.8 OTHER SPECIFIED ANXIETY DISORDERS 02/25/2017 KIAH VENEGAS Ot I25.10 ATHSCL HEART DISEASE OF [place] CORONARY 02/25/2017 KIAH VENEGAS Ot J44.9 CHRONIC OBSTRUCTIVE PULMONARY DISEASE, U 02/25/2017 KIAH VENEGAS Ot R00.2 PALPITATIONS 02/25/2017 KIAH VENEGAS Ot E78.2 MIXED HYPERLIPIDEMIA 02/25/2017 KIAH VENEGAS Ot E78.2 MIXED HYPERLIPIDEMIA 02/25/2017 KIAH VENEGAS Ot I10 ESSENTIAL (PRIMARY) HYPERTENSION 02/25/2017 KIAH VENEGAS Ot I25.10 ATHSCL HEART DISEASE OF [place] CORONARY 02/27/2017 MICHAEL ALMEIDA CUSTOMER ACQUISITION SPECIALIST Ot Z12.31 ENCNTR SCREEN MAMMOGRAM FOR MALIGNANT NE 03/10/2017 MICHAEL ALMEIDA CUSTOMER ACQUISITION SPECIALIST Ot Z12.31 ENCNTR SCREEN MAMMOGRAM FOR MALIGNANT NE 07/23/2017 Ot 611.72 LUMP OR MASS IN BREAST 07/23/2017 LORIE SPENCER, BARTOLO Gregory Ot V76.12 OTH SCREEN MAMMO-MALIGN NEOPLASM OF [place] 07/23/2017 MICHAEL ALMEIDA CUSTOMER ACQUISITION SPECIALIST Ot 922.1 CONTUSION OF CHEST WALL 07/23/2017 MICHAEL ALMEIDA CUSTOMER ACQUISITION SPECIALIST Ot E008.1 ACTIVITIES INVOLVING WRESTLING 07/23/2017 MICHAEL ALMEIDA CUSTOMER ACQUISITION SPECIALIST Ot E928.8 ACCIDENT NEC 07/23/2017 Ot 723.1 CERVICALGIA 07/23/2017 Ot 721.0 CERVICAL SPONDYLOSIS 07/23/2017 ERROL MARCOS MD Ot 401.9 HYPERTENSION NOS 07/23/2017 ERROL MARCOS MD Ot 414.9 CHR ISCHEMIC HRT DIS NOS 07/23/2017 REROL MARCOS MD Ot 496 CHR AIRWAY OBSTRUCT NEC 07/23/2017 ERROL MARCOS MD Ot 785.1 PALPITATIONS 07/23/2017 KATIANA SPENCER, NELSY Boyd Ot M25.512 PAIN IN LEFT SHOULDER 07/23/2017 KIAH VENEGAS Ot F41.8 OTHER SPECIFIED ANXIETY DISORDERS 07/23/2017 KIAH VENEGAS Ot I25.10 ATHSCL HEART DISEASE OF [place] CORONARY 07/23/2017 KIAH VENEGAS Ot J44.9 CHRONIC OBSTRUCTIVE PULMONARY DISEASE, U 07/23/2017 KIAH VENEGAS Ot R00.2 PALPITATIONS 07/23/2017 KIAH VENEGAS Ot F41.8 OTHER SPECIFIED ANXIETY DISORDERS 07/23/2017 KIAH VENEGAS Ot I25.10 ATHSCL HEART DISEASE OF [place] CORONARY 07/23/2017 KIAH VENEGAS Ot J44.9 CHRONIC OBSTRUCTIVE PULMONARY DISEASE, U 07/23/2017 KIAH VENEGAS Ot R00.2 PALPITATIONS 07/23/2017 KIAH VENEGAS Ot E78.2 MIXED HYPERLIPIDEMIA 07/23/2017 KIAH VENEGAS Ot E78.2 MIXED HYPERLIPIDEMIA 07/23/2017 KIAH VENEGAS Ot I10 ESSENTIAL (PRIMARY) HYPERTENSION 07/23/2017 KIAH VENEGAS Ot I25.10 ATHSCL HEART DISEASE OF [place] CORONARY 07/23/2017 MICHAEL ALMEIDA Ot Z12.31 ENCNTR SCREEN MAMMOGRAM FOR MALIGNANT NE 07/23/2017 TAMEKA WILLIAM Ot B19.20 UNSPECIFIED VIRAL HEPATITIS C WITHOUT HE 07/23/2017 TAMEKA WILLIAM Ot F32.9 MAJOR DEPRESSIVE DISORDER, SINGLE EPISOD 07/23/2017 TAMEKA WILLIAM Ot F41.9 ANXIETY DISORDER, UNSPECIFIED 07/23/2017 TAMEKA WILLIAM Ot J44.9 CHRONIC OBSTRUCTIVE PULMONARY DISEASE, U 07/23/2017 TAMEKA WILLIAM Ot K21.9 GASTRO-ESOPHAGEAL REFLUX DISEASE WITHOUT 07/23/2017 TAMEKA WILLIAM Ot M25.471 EFFUSION, RIGHT ANKLE 07/23/2017 TAMEKA WILLIAM Ot M41.20 OTHER IDIOPATHIC SCOLIOSIS, SITE UNSPECI 07/23/2017 TAMEKA WILLIAM Ot S93.411A SPRAIN OF CALCANEOFIBULAR LIGAMENT OF [place] 07/23/2017 TAMEKA WILLIAM Ot X50.0XXA OVEREXERTION FROM STRENUOUS MOVEMENT OR 07/23/2017 TAMEKA WILLIAM Ot Y93.A9 ACTIVITY, OTHER INVOLVING CARDIORESPIRAT 07/23/2017 TAMEKA WILLIAM Ot Z87.59 PERSONAL HISTORY OF COMP OF PREG, CHLDBR 07/23/2017 TAMEKA WILLIAM Ot Z87.891 PERSONAL HISTORY OF NICOTINE DEPENDENCE 07/23/2017 TAMEKA WILLIAM Ot 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 ABSENCE OF BOTH CERVIX AND UTER 07/23/2017 TAMEKA WILLIAM Ot Z98.51 TUBAL LIGATION STATUS Procedures Code Description [place] [address] ROUTINE VENIPUNCTURE 07/20/2013 23219 HEP B SURFACE ANTIGEN (STATE ) 07/20/2013 92565 HEP C PCR QUANT W/YULISA 07/20/2013 INFECTIOU SWEET, CLINIC 07/20/2013 87480 CBC 07/20/2013 4570317 GFR CALC (RESULT ONLY) 07/20/2013 25548 CMP 07/20/2013 80811 PT/INR 07/20/2013 13272 HEP B SURFACE ANTIBODY 07/20/2013 32100 HEP A ANTIBODY, IGM (RML) 07/20/2013 21880 HIV ANTIBODIES (RML) 07/21/2013 03473 BMP 08/19/2013 48515 ROUTINE VENIPUNCTURE 08/19/2013 62730 OXIMETRY 09/23/2013 57820 BIOPSY SKIN LESION (SINGLE) 10/07/2013 00120 BIOPSY SKIN (EACH ADD'L) 10/07/2013 97116 WART DESTRUCT 1-14 (CRYO) 10/07/2013 36902 BIOPSY SKIN LESION (SINGLE) 11/28/2013 08209 BIOPSY SKIN (EACH ADD'L) 11/28/2013 09111 PSYCH DIAGNOSTIC EVALUATION 12/12/2013 55933 XRAY SHOULDER RIGHT COMP 2 VIEWS 08/10/2014 01924 PSYTX PT&/FAMILY 45 MINUTES 08/22/2014 49933 XRAY CERVICAL SPINE, 2 OR 3 VIEWS 09/13/2014 52732 [employer]IT[employer] 09/13/2014 02791 PSYTX PT&/FAMILY 45 MINUTES 09/13/2014 Results Test Result Range Comprehensive metabolic panel - 10/22/16 08:30 Serum or plasma sodium measurement (moles/volume) 142 mmol/L 135-145 Serum or plasma potassium measurement (moles/volume) 4.3 mmol/L 3.6-5.0 Serum or plasma chloride measurement (moles/volume) 107 mmol/L 98-107 Carbon dioxide 26 mmol/L 21-32 Serum or plasma anion gap determination (moles/volume) 9 mmol/L 5-14 Serum or plasma urea nitrogen measurement (mass/volume) 12 mg/dL 7-18 Serum or plasma creatinine measurement (mass/volume) 1.07 mg/dL 0.60-1.30 Serum or plasma urea nitrogen/creatinine mass ratio 11 NRG Serum or plasma creatinine measurement with calculation of estimated glomerular filtration rate 55 NRG Serum or plasma glucose measurement (mass/volume) 84 mg/dL 70-105 Serum or plasma calcium measurement (mass/volume) 9.2 mg/dL 8.5-10.1 Serum or plasma total bilirubin measurement (mass/volume) 0.4 mg/dL 0.1-1.0 Serum or plasma alkaline phosphatase measurement (enzymatic activity/volume) 102 U/L 40-136 Serum or plasma aspartate aminotransferase measurement (enzymatic activity/ volume) 11 U/L 5-34 Serum or plasma alanine aminotransferase measurement (enzymatic activity/volume ) 8 U/L 0-55 Serum or plasma protein measurement (mass/volume) 6.4 g/dL 6.4-8.2 Serum or plasma albumin measurement (mass/volume) 4.1 g/dL 3.2-4.5 Lipid 1996 panel - 10/22/16 08:30 Serum or plasma triglyceride measurement (mass/volume) 149 mg/dL <150 Serum or plasma cholesterol measurement (mass/volume) 152 mg/dL < 200 Serum or plasma cholesterol in HDL measurement (mass/volume) 53 mg/ dL 40-60 Cholesterol in LDL [mass/volume] in serum or plasma by direct assay 78 mg/dL 1-129 Serum or plasma cholesterol in VLDL measurement (mass/volume) 30 mg/ dL 5-40 Capillary blood glucose measurement by glucometer (mass/volume) - 11/20/16 12: 44 Capillary blood glucose measurement by glucometer (mass/volume) 103 mg/dL 70-110 Complete blood count (CBC) with automated white blood cell (WBC) differential - 11/20/16 13:05 Blood leukocytes automated count (number/volume) 8.5 10*3/uL 4.3-11.0 Blood erythrocytes automated count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
[2017-12-07 11:45] LABS: ALANINE AMINOTRANSFERASE 12 U/L (0-55); ALBUMIN 3.9 GM/DL (3.2-4.5); ALKALINE PHOSPHATASE 80 U/L (40-136); BILIRUBIN,TOTAL 0.9 MG/DL (0.1-1.0); BUN/CREATININE RATIO 11; CALCIUM 9.2 MG/DL (8.5-10.1); CARBON DIOXIDE 26 MMOL/L (21-32); CHLORIDE 102 MMOL/L (98-107); CREATININE SERUM 0.81 MG/DL (0.60-1.30); GFR ESTIMATED > 60; GLUCOSE 94 MG/DL (70-105); MAGNESIUM 2.2 MG/DL (1.8-2.4); SODIUM 135 MMOL/L (135-145); TOTAL PROTEIN 6.8 GM/DL (6.4-8.2)
--- NOTE | 2017-12-07 11:49 | Diagnostic Imaging Report ---
CLINICAL INDICATION: Patient with nausea, vomiting and high blood pressure. EXAM: Axial CT scan of brain performed without IV contrast. COMPARISON: Head CT without IV contrast dated 10/21/2013. FINDINGS: There is no evidence of acute cerebral infarct, intracranial hemorrhage, or gross mass effect. The brain parenchymal volume appears appropriate for patient's age. There is normal gomez-white matter distinction. There is no significant midline shift or herniation. There is no evidence of hydrocephalus. The basal cisterns are unremarkable. The skull, extracranial soft tissue, and orbits are unremarkable. The paranasal sinuses are unremarkable. Temporal bones show no significant abnormality. IMPRESSION: Unremarkable CT scan of the brain. Dictated by: Dictated on workstation # [id number]
[2017-12-07 11:51] LABS: POTASSIUM 5.2 MMOL/L (3.6-5.0)
--- NOTE | 2017-12-07 11:57 | Diagnostic Imaging Report ---
INDICATION: Shortness of breath and chest pain. Time of exam: 11:19 AM Comparison is made to prior study 11/20/2016. A right convexity thoracic scoliotic curvature is noted. The heart size is stable. Lungs are clear. Pulmonary vascularity is normal. No infiltrate, effusion or pneumothorax is seen. Postop changes of lower cervical ACDF is again noted. IMPRESSION: Stable chest. No acute cardiopulmonary process is detected. Dictated by: Dictated on workstation # [id number]
[2017-12-07 12:26] LABS: BILIRUBIN,URINE NEGATIVE (NEGATIVE); CLARITY,URINE CLEAR; COLOR,URINE YELLOW; GLUCOSE, URINE (UA) NEGATIVE (NEGATIVE); KETONES,URINE NEGATIVE (NEGATIVE); LEUKOCYTE ESTERASE ,URINE NEGATIVE (NEGATIVE); NITRITE,URINE NEGATIVE (NEGATIVE); PH,URINE 7 (5-9); PROTEIN,URINE NEGATIVE (NEGATIVE); UROBILINOGEN,URINE NORMAL (NORMAL)
[2017-12-07 12:43] LABS: AMPHETAMINE SCREEN, URINE NEGATIVE (NEGATIVE); BARBITURATE SCREEN URINE NEGATIVE (NEGATIVE); BENZODIAZEPINES SCREEN URINE POSITIVE (NEGATIVE); CANNABINOID SCREEN, URINE NEGATIVE (NEGATIVE); COCAINE SCREEN URINE NEGATIVE (NEGATIVE); METHADONE STAT NEGATIVE (NEGATIVE); METHAMPHETAMINE SCREEN URINE S NEGATIVE (NEGATIVE); OPIATE SCREEN URINE NEGATIVE (NEGATIVE); OXYCODONE STAT POSITIVE (NEGATIVE); PROPOXYPHENE STAT NEGATIVE (NEGATIVE); TRICYCLIC ANTIDEPRESSANTS SCRE NEGATIVE (NEGATIVE)
[2017-12-07 12:45] LABS: BACTERIA,URINE NEGATIVE /HPF
--- NOTE | 2017-12-07 12:47 | Consultation-Cardiology ---
HPI-Cardiology Cardiology Consultation Date of Consultation 12/07/17 Date of Admission Time Seen by Provider: 12:10 Indication: HTN, bradycardia HPI Patient is a 47 y.o female with history of HTN, bradycardia, nonobstructive CAD per cardiac cath 2016. Presented to the ER with complaints of headache, N/V, onset last night. Reports her blood pressure has been elevated at home for the past several weeks. Has history of labile HTN. Denies any CP, dizziness or syncope. This is a 47-year-old lady with history of hypertension, mild coronary artery disease, presented to the emergency room with headache, nausea and vomiting. Hypertension. CT scan of the head did not show any bleed. Blood pressure has responded to losartan dose. Upper my evaluation she was feeling better. Denied any chest pain, no shortness of breath, still having mild headache. Home Medications & Allergies Allergies: Coded Allergies: nicotine (Unverified Allergy, Intermediate, HIVES, ITCHING, RASH AROUND PATCH, 05/30/10) Penicillins (Verified Allergy, Unknown, 10/16/09) acetaminophen (Verified Allergy, Unknown, 10/16/09) bupropion (Verified Allergy, Unknown, 10/16/09) cephalexin (Verified Allergy, Unknown, 10/16/09) codeine (Verified Allergy, Unknown, 10/16/09) morphine (Verified Allergy, Unknown, 11/20/16) sertraline (Verified Allergy, Unknown, 10/16/09) Home Medication List Reviewed: Yes OON-Rxxlks-Teyvxx Hx Patient Social History Alcohol Use: Denies Use Recreational Drug Use: Yes (RECOVERING 6 MONTHS-) Smoking Status: Current Everyday Smoker Recent Foreign Travel: No Recent Infectious Disease Expo: No Recent Hopitalizations: Yes Immunizations Up To Date Tetanus Booster (TDap): Unknown Date of Pneumonia Vaccine: Sep 21, 2013 Date of Influenza Vaccine: Jun 27, 2014 Past Medical History HTN, bradycardia Family Medical History Significant Family History: No Pertinent Family Hx Family History: Diabetes mellitus 19 MOTHER FH: COPD (chronic obstructive pulmonary disease) 19 MOTHER FH: cancer 19 FATHER FH: depression 19 MOTHER Hypertension 19 MOTHER Hypoglycemia 19 FATHER Constitutional: No chills, No diaphoresis, No dizziness, No fever, No malaise, No weakness EENTM: other (Headache), No blurred vision, No double vision Respiratory: No cough, No dyspnea on exertion Cardiovascular: No chest pain, No edema, No Hx of Intervention, No palpitations Gastrointestinal: No abdominal pain, No constipation Genitourinary: No frequency, No hematuria : No Musculoskeletal: No joint pain Skin: No lesions Psychiatric/Neurological: Denies Anxiety, Denies Depressed Reviewed Test Results Reviewed Test Results Lab Laboratory Tests 12/07/17 11:11: White Blood Count 6.9, Red Blood Count 4.34L, Hemoglobin 14.2, Hematocrit 41, Mean Corpuscular Volume 95, Mean Corpuscular Hemoglobin 33, Mean Corpuscular Hemoglobin Concent 35, Red Cell Distribution Width 13.0, Platelet Count 154, Mean Platelet Volume 11.1H, Neutrophils (%) (Auto) 52, Lymphocytes (%) (Auto) 34 , Monocytes (%) (Auto) 8, Eosinophils (%) (Auto) 5, Basophils (%) (Auto) 1, Neutrophils # (Auto) 3.6, Lymphocytes # (Auto) 2.3, Monocytes # (Auto) 0.6, Eosinophils # (Auto) 0.4H, Basophils # (Auto) 0.0, Prothrombin Time 13.4, INR Comment 1.0, Sodium Level 135, Potassium Level 5.2H, Chloride Level 102, Carbon Dioxide Level 26, Anion Gap 7, Blood Urea Nitrogen 9, Creatinine 0.81, Estimat Glomerular Filtration Rate > 60, BUN/Creatinine Ratio 11, Glucose Level 94, Calcium Level 9.2, Magnesium Level 2.2, Total Bilirubin 0.9, Aspartate Amino Transf (AST/SGOT) 19, Alanine Aminotransferase (ALT/SGPT) 12, Alkaline Phosphatase 80, Troponin I < 0.30, Total Protein 6.8, Albumin 3.9 12/07/17 11:20: ECG Impression ECG Initial ECG Rhythm: S.Larry Physical Exam Vital Signs Vital Signs - First Documented 12/07/17 11:15 Temp 97.5 Pulse 39 Resp 16 B/P (MAP) 204/105 (138) Pulse Ox 98 O2 Delivery Room Air Capillary Refill : Less Than 3 Seconds General Appearance: No Apparent Distress, WD/WN HEENT: Normal ENT Inspection Neck: Full Range of Motion, Non Tender, Supple Respiratory: Chest Non Tender, Lungs Clear, No Accessory Muscle Use, No Respiratory Distress Cardiovascular: No Edema, No Gallop, No JVD, No Murmur, Bradycardia Gastrointestinal: Non Tender, Soft Rectal: Deferred Back: No CVA Tenderness Extremity: No Calf Tenderness, No Pedal Edema Neurologic/Psychiatric: Alert, Oriented x3, two way radio installer II-XII Norm as Tested A/P-Cardiology Admission Diagnosis Headache HTN Bradycardia CAD Assessment/Plan Headache- associated with nausea. Patient reporting some improvement. Likely related to her uncontrolled HTN. CT head negative HTN- poorly controlled. Has history of labile HTN in the past. I will discontinue Toprol XL, start Coreg 3.125mg BID, Lisinopril 2.5mg daily, HCTZ 25mg daily. Follow up in our office tomorrow. Bradycardia- asymptomatic. I will d/c Toprol XL at this time, start low dose Coreg and monitor tolerance and response. Nonobstructive CAD per cardiac catheterization in 2016. COPD Tobaccoism- educated on the importance of smoking cessation Thank you for allowing us to participate in the management of Ms. Macdonald. This is Kiah Holloway PA-C, as a scribe for Dr. Castillo. This is Dr. Castillo, I have seen and evaluated the patient with Kiah, interviewed the patient and perform physical examination. On examination her lungs were clear to auscultation bilaterally, heart is regular rate and rhythm, still having mild headache, it was reported to me that her CT scan was negative. Blood pressure was better. She was still bradycardic but asymptomatic otherwise. I instructed her to change Toprol to Coreg 3.125 mg twice daily and lisinopril 2.5 mg daily in addition to hydrochlorothiazide 25 mg daily and monitor her blood pressure at home and return to my office as an outpatient. I performed physical examination, visited with Kiah about the consult and the management plan and agree with the current scribed note, I made a few modification to the note and used Italic Font KIAH GOMEZ Dec 07, 2017 12:47 ERROL CASTILLO MD Dec 07, 2017 13:42
[2017-12-07 13:09] VITALS: BP 166/86
== END 2017-12-07 13:09 | disposition home or self-care (01) ==
LOC: EDUNIT# 10:59 → ER 11:00
DX: I16.1 Hypertensive emergency (principal); J44.9 Chronic obstructive pulmonary disease, unspecified; K21.9 Gastro-esophageal reflux disease without esophagitis; F41.9 Anxiety disorder, unspecified; F32.9 Major depressive disorder, single episode, unspecified; I10 Essential (primary) hypertension; Z88.0 Allergy status to penicillin; Z88.6 Allergy status to analgesic agent; Z88.5 Allergy status to narcotic agent; Z87.19 Personal history of other diseases of the digestive system; Z88.1 Allergy status to other antibiotic agents; Z88.8 Allergy status to other drugs, medicaments and biological substances; Z79.52 Long term (current) use of systemic steroids; Z79.51 Long term (current) use of inhaled steroids; Z90.710 Acquired absence of both cervix and uterus; Z98.51 Tubal ligation status; Z87.59 Personal history of other complications of pregnancy, childbirth and the puerperium
CPT/HCPCS: 36415; 70450; 71045; 80053; 80306; 81000; 83735; 84484; 85025; 85610; 93005; 96374; 96375

== ENCOUNTER → 2019-02-23 | Outpatient (CLI) | payer MEDICAID ==
[~2019-02-23] MED LIST changes: +TRAZ-190 PO; -TRAZ100T92 PO
--- NOTE | 2019-02-23 12:42 | Diagnostic Imaging Report ---
INDICATION: Routine screening. COMPARISON: 02/26/2017 and 12/14/2013. TECHNIQUE: 2D and 3D bilateral screening mammography was performed with CAD. FINDINGS: Scattered fibroglandular densities are identified bilaterally. The parenchymal pattern is stable. No mass or malignant appearing microcalcifications are seen. The axillae are unremarkable. IMPRESSION: No mammographic features suspicious for malignancy are identified. ACR BI-RADS Category 1: Negative. Result letter will be mailed to the patient. Note: At least 10% of breast cancer is not imaged by mammography. Dictated by: Dictated on workstation # [id number]
== END ==
LOC: RAD 10:45
PROVIDERS: ATTEND Nurse Practitioner
DX: Z12.31 Encounter for screening mammogram for malignant neoplasm of breast (principal)
CPT/HCPCS: 77067

== ENCOUNTER 2019-04-09 01:10 | Emergency (ER) | payer MEDICAID ==
[~2019-04-09] VITALS: Ht 162.6 cm; Wt 63.5 kg
--- OUTSIDE RECORDS SUMMARY | 2019-04-09 01:18 | XMS REPORT ---
Author Author Rodolfo Curry [facility] Address [address] [place], [place] [id number] Care Team Providers Care Slab Depiler Operator Name Role Phone Rodolfo Curry PCP Allergies and Adverse Reactions Name Reaction Notes TETRACYCLINES doxycycline hyclate Wellbutrin XL Zoloft Morphine Sulfate tramadol penicillin V potassium Wasp Sting SULFA (SULFONAMIDES) Plan of Treatment Not available. Medications Active Name Start Date Estimated Completion Date SIG Comments albuterol sulfate 2.5 mg /3 mL (0.083 %) inhalation solution for nebulization inhale 3 milliliters (2.5 mg) by nebulization route 3 times per day Flonase Allergy Relief 50 mcg/actuation nasal spray,suspension spray 1 spray (50 mcg) in each nostril by intranasal route once daily lisinopril-hydrochlorothiazide 20-25 mg oral tablet take 1 tablet by oral route once daily Coreg 3.125 mg oral tablet take 1 tablet (3.125 mg) by oral route 2 times per day with food Crestor 40 mg oral tablet take 1 tablet (40 mg) by oral route once daily tizanidine 4 mg oral capsule take 1 capsule (4 mg) by oral route 3 times per day pantoprazole 20 mg oral tablet,delayed release (DR/EC) take 1 tablet (20 mg) by oral route once daily venlafaxine 75 mg oral tablet take 1 tablet by oral route daily trazodone 100 mg oral tablet take 1 tablet (100 mg) by oral route once daily at bedtime epinephrine 0.3 mg/0.3 mL injection auto-injector inject 0.3 milliliter (0.3 mg) by intramuscular route once as needed for anaphylaxis epinephrine 0.3 mg/0.3 mL injection auto-injector inject 0.3 milliliter (0.3 mg) by intramuscular route once as needed for anaphylaxis ondansetron HCl 4 mg oral tablet take 1 tablet by oral route Symbicort 160-4.5 mcg/actuation inhalation HFA aerosol inhaler inhale 2 puffs by inhalation route 2 times per day in the morning and evening ProAir HFA 90 mcg/actuation inhalation HFA aerosol inhaler inhale 1 puff (90 mcg) by inhalation route every 6 hours as needed oxycodone-acetaminophen 5-325 mg oral tablet take 1 tablet by oral route every 8 hours prednisone 20 mg oral tablet take 2 tablets (40 mg) by oral route once daily Problem List Not available. Vital Signs Date Time BP-Sys(mm[Hg] BP-[place](mm[Hg]) HR(bpm) RR(rpm) Temp WT HT HC BMI BSA BMI Percentile O2 Sat(%) 01/11/2019 1:36:00 PM 140 mmHg 80 mmHg 69 bpm 98.1 F 156.25 lbs 65 in 26.0011 kg/m 1.8029 m 99 % Social History Name Description Comments Alcohol Never Tobacco Current every day smoker History of Procedures Not available. Results Summary Not available. History Of Immunizations Not available. History of Past Illness Name Date of Onset Comments Hypertension Hyperlipidemia Chronic Renal Failure CAD (coronary artery disease) COPD (chronic obstructive pulmonary disease) bipolar PTSD (post-traumatic stress disorder) Polysubstance abuse Allergic rhinitis DDD (degenerative disc disease), cervical H/O cervical cancer Angina Pectoris Mechanical low back pain Jan 11 2019 1:43PM Angina pectoris Jan 11 2019 1:43PM Trochanteric bursitis of right hip Jan 11 2019 1:43PM Payers Insurance Name Company Name Plan Name Plan Number Policy Number Policy Group Number Start Date [facility] Plan of [id number] N/A Medicare Part B Medicare Of [place] [id number] N/A [place] Medical Assistance [facility] Medical Assistance Prog [id number] N/A History of Encounters Visit Date Visit Type Provider 01/11/2019 Office visit Rodolfo Curry DO 01/28/2011 [facility] Bri Villarreal MD
--- OUTSIDE RECORDS SUMMARY | 2019-04-09 01:18 | XMS REPORT ---
Author Author Rodolfo Curry [facility] Address [address] [place], [place] [id number] Care Team Providers Care Instrumentation Designer Name Role Phone Rodolfo Curry PCP Allergies [...] Policy Number Policy Group Number Start Date [facility] Plan of [id number] N/A Medicare Part B Medicare Of [place] [id number] N/A [place] Medical Assistance [facility] Medical Assistance Prog [id number] N/A History of Encounters Visit Date Visit Type Provider 01/11/2019 Office visit Rodolfo Curry DO 01/28/2011 [facility] Bri Villarreal MD
--- OUTSIDE RECORDS SUMMARY | 2019-04-09 01:19 | XMS REPORT ---
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 Active 66114786 Problem Spinal stenosis of thoracolumbar region M48.05 Active 97132741 Problem Chronic headaches R51 Active 079746275 Problem Hypertension I10 Active 17318458 Problem GERD (gastroesophageal reflux disease) K21.9 Active 779065938 Problem Tobacco abuse Z72.0 Active 68662374 Problem Dyslipidemia E78.5 Active 341229257 Problem Acute right hip pain M25.551 Active 03695791 Problem Environmental allergies Z91.09 Active 659205049 Problem Primary insomnia F51.01 Active 0268353 Problem Chronic pain G89.29 Active 09292913 Problem Obsessive-compulsive disorder, unspecified type F42.9 Active 941860207 Problem Bipolar I disorder F31.9 Active 165766712 Problem Spondylosis of cervical region without myelopathy or radiculopathy M47.812 Active 203022323 Problem DDD (degenerative disc disease), thoracolumbar M51.35 Active 19648026 ALLERGIES No Information ENCOUNTERS Encounter Location Date Diagnosis [facility] [address] [place] [address] Mar, Chronic pain G89.[address] [facility] [address] [place] [address] Mar, Chronic pain G89.29 [facility] [address] [place] [address] Mar, Chronic pain G89.[address] 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 ; Primary insomnia F51.01 ; Encounter for screening for malignant neoplasm of colon Z12.11 and Screening for breast cancer Z12.31 [facility] [place] [address] [id number] [place] [id number] Dec, Depression F32.9 ; Hypertension I10 ; Dyslipidemia E78.5 and Chronic pain G89.29 [facility] [place] [address] [id number] [place] [id number] Dec, [facility] [place] [address] [id number] [place] [id number] Dec, Spinal stenosis of thoracolumbar region M48.05 ; DDD (degenerative disc disease), thoracolumbar M51.35 ; Spondylosis of cervical region without myelopathy or radiculopathy M47.812 ; Chronic pain G89.29 ; Acute right hip pain M25.551 and Depression F32.9 [facility] [place] [address] [id number] [place] [address] Dec, Chronic pain G89.29 [facility] [place] [address] [id number] [place] [id number] Nov, [facility] [place] [address] [id number] [place] [id number] Nov, Chronic pain G89.29 [facility] [place] [address] [id number] [place] [id number] Nov, [facility] [place] [address] [id number] [place] [id number] Oct, [facility] [place] [address] [id number] [place] [address] Oct, Chronic pain G89.29 [facility] [place] [address] [id number] [place] [address] Sep, Chronic pain G89.29 [facility] [place] [address] [id number] [place] [address] Sep, [facility] [place] [address] [id number] [place] [address] Sep, Otitis media H66.90 and URI (upper respiratory infection) J06.9 [facility] [place] [address] [id number] [place] [id number] Aug, Chronic pain G89.29 [facility] [place] [address] [id number] [place] [id number] Aug, 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 [facility] [place] [address] [id number] [place] [address] Aug, Sinusitis J32.9 and Nausea R11.0 [facility] [place] [address] [id number] [place] [id number] Aug, Chronic pain G89.29 ; Spondylosis of cervical region without myelopathy or radiculopathy M47.812 and DDD (degenerative disc disease), thoracolumbar M51.35 [facility] [place] [address] [id number] [place] [id number] Aug, Bipolar I disorder F31.9 [facility] [place] [address] [id number] [place] [address] Aug, Bipolar I disorder F31.9 and Obsessive-compulsive disorder, unspecified type F42.9 [facility] [place] [address] [id number] [place] [address] Jul, Chronic pain G89.29 [facility] [place] [address] [id number] [place] [address] Jul, [facility] [place] [address] [id number] [place] [id number] Jul, Bipolar I disorder F31.9 and Obsessive-compulsive disorder, unspecified type F42.9 [facility] [place] [address] [id number] [place] [id number] Jul, GERD (gastroesophageal reflux disease) K21.9 ; Hypertension I10 ; 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 ; Chronic pain G89.29 ; Dyslipidemia E78.5 ; Environmental allergies Z91.09 and Encounter for immunization Z23 [place] [id number] [place] [id number] Jun, Chronic pain G89.29 [place] [id number] [place] [address] [id number] Jun, [address] [id number] [place] [id number] Jun, [place] [id number] [place] [id number] Jun, Dyslipidemia E78.[address] [id number] Jun, Chronic pain G89.29 [place] [id number] [place] [id number] May, [address] [id number] May, Chronic pain G89.29 ; Tobacco abuse Z72.0 ; High risk medication use Z79.899 ; Dyslipidemia E78.5 ; Hepatitis C B19.20 ; Hypertension I10 ; Environmental allergies Z91.09 ; Anxiety F41.9 ; 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 and GERD (gastroesophageal reflux disease) K21.9 [place] [id number] [place] [id number] Apr, Chronic pain G89.29 [place] [address] [address] Mar, Costochondral separation, initial encounter S23.29XA and Injury of toe on left foot, initial encounter S99.922A [address] [id number] Mar, Chronic pain G89.29 [facility] [address] [address] Feb, Poison elda L23.[address] [id number] Feb, Chronic pain G89.29 [facility] [address] [id number] [place] [address] Feb, Bronchitis J40 [place] [id number] [place] [address] [id number] Feb, [place] [id number] [place] [address] [phone] Feb, Chronic pain G89.29 [place] [id number] [place] [address] [id number] January, Vaginal discharge N89.8 ; Increased urinary frequency R35.0 ; Acute cystitis with hematuria N30.01 ; Other specified bacterial agents as the cause of diseases classified elsewhere B96.89 and Acute vaginitis N76.0 [place] [id number] [place] [address] [id number] January, Chronic pain G89.29 and Candidiasis B37.9 [facility] [id number] [place] [address] January, [facility] [address] [place] [id number] [place] [address] Dec, Acute frontal sinusitis, recurrence not specified J01.10 and Cough R05 [address] [place] [address] [id number] Dec, [place] [id number] [place] [id number] Nov, [facility] [id number] [place] [address] Nov, Bronchitis J40 [address] [id number] Nov, [facility] [address] [place] [id number] [place] [address] Oct, COPD with acute exacerbation J44.1 [address] [place] [address] [id number] Oct, Chronic pain G89.29 [facility] [address] [facility] [id number] [id number] Oct, [facility] [id number] [address] Sep, Chronic pain G89.29 ; Depression F32.9 ; Anxiety F41.9 ; 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 and Flu-like symptoms R68.89 [facility] [place] [id number] [place] [address] Aug, Chronic pain G89.29 ; Open bite of other finger without damage to nail, initial encounter S61.258A and Bitten by dog, initial encounter W54.0XXA [place] [id number] [place] [address] Jul, Menopause Z78.0 ; Ankle swelling, unspecified laterality M25.473 ; Chronic pain G89.29 and Tobacco abuse Z72.0 [facility] [id number] [place] [address] Jun, [facility] [address] [address] Jun, Chronic pain G89.29 [facility] [id number] [place] [address] May, Dysuria R30.0 ; Dehydration E86.0 and Hypertension I10 [place] [address] [id number] [place] [address] May, Menopause Z78.0 ; Depression F32.9 ; Chronic pain G89.29 ; Environmental allergies Z91.09 ; 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 and Encounter for immunization Z23 [place] [address] [address] [id number] [place] [address] May, Chronic pain G89.29 [place] [address] [place] [address] [id number] [place] [address] Apr, Chronic pain G89.29 [facility] [address]100[place] [address] Apr, Routine gynecological examination Z01.419 [facility] [id number] [place] [address] Mar, Chronic pain G89.29 [facility] [id number] [place] [address] Feb, [facility] [id number] [place] [address] Feb, Chronic pain G89.29 [facility] [address] [id number] [place] [address] Feb, [facility] [address] [id number] [place] [address] January, Chronic pain G89.29 [facility] [address] [id number] [place] [address] January, Routine gynecological examination Z01.419 and Breast cancer screening Z12.39 [place] [address] [address] [id number] [place] [address] January, Chronic pain G89.29 [facility] [address] [id number] [place] [address] Dec, Postmenopausal HRT (hormone replacement therapy) Z79.890 [place] [address] [address] [id number] [place] [address] Dec, [facility] [id number] [place] [address] Nov, Chronic pain G89.29 [facility] [id number] [place] [address] Nov, Chronic headaches R51 ; GERD (gastroesophageal reflux disease) K21.9 ; Hypertension I10 ; 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 ; Hepatitis C B19.20 ; Chronic pain G89.29 ; Pain of right thumb M79.644 ; Insomnia G47.00 ; Depression F32.9 ; Environmental allergies Z91.09 and Closed fracture of tuft of distal phalanx of finger, with routine healing, subsequent encounter S62.639D [facility] [id number] [place] [address] 15 Nov, 2016 [facility] [address] [address] Nov, [facility] [address] [address] [id number] [place] [address] Nov, [place] [address] [address] Nov, Hypertension I10 [facility] [address] [id number] [place] [address] Nov, [facility] [address] [address] Nov, [facility] [address] [place] [address] [id number] [place] [address] Oct, Anxiety F41.9 [place] [address] [address] [id number] [place] [address] Oct, [facility] [address] [id number] [place] [address] Oct, Acute upper respiratory infection, unspecified J06.9 and Other viral agents as the cause of diseases classified elsewhere B97.89 [place] [address] [place] [id number] [place] [address] Oct, [facility] [address] [place] [id number] [place] [address] Oct, Right acute serous otitis media, recurrence not specified H65.01 and Pharyngitis, unspecified etiology J02.9 [place] [address] [place] [address] [id number] [place] [address] Sep, [facility] [address] [address] Aug, Environmental allergies Z91.09 [facility] [id number] [address] Aug, [facility] [address]65[address] [address] Jul, Atypical nevi D22.9 [facility] [id number] [place] [address] Jul, [facility] [id number] [place] [address] Jul, [facility] [id number] [place] [address] Jul, [facility] [id number] [place] [address] Jun, [facility] [id number] [place] [address] May, [facility] [id number] [place] [address] May, [facility] [id number] [address] May, [facility] [address] [address] Apr, [facility] [address] [address] Apr, Chronic headaches R51 ; GERD (gastroesophageal reflux disease) K21.9 ; Hypertension I10 ; 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 ; Anxiety F41.9 ; COPD with acute exacerbation J44.1 ; Environmental allergies Z91.09 ; Depression F32.9 and Chronic pain G89.29 [facility] [address] [address] Feb, Chronic headaches R51 and Chronic pain G89.29 [facility] [address] [id number] [place] [address] January, Chronic pain G89.29 and Anxiety F41.9 [place] [address] [address] January, Depression F32.9 and Hypertension I10 [place] [address] [address] January, Chronic pain G89.29 [place] [address] [address] Dec, [place] [address] [address] Dec, [place] [address] [address] Dec, Chronic headaches R51 ; Chronic pain G89.29 ; Environmental allergies Z91.09 ; GERD (gastroesophageal reflux disease) K21.9 ; Insomnia G47.00 ; Hypertension I10 and COPD with acute exacerbation J44.1 [place] [address] [address] Dec, [place] [address] [address] Dec, Chest pain R07.9 ; GERD (gastroesophageal reflux disease) K21.9 and Nausea R11.0 [place] [address] [place] [id number] [place] [address] Nov, [place] [address] [address] Oct, COPD with acute exacerbation J44.1 ; Chronic headaches R51 ; GERD (gastroesophageal reflux disease) K21.9 ; Insomnia G47.00 ; Hypertension I10 ; Depression F32.9 and Anxiety F41.9 [place] [address] [address] Oct, [place] [address] [place] [id number] [place] [address] Oct, [place] [address] [place] [id number] [place] [address] Oct, [place] [address] [address] Oct, [place] [address] [address] Oct, Flu-like symptoms R68.89 and COPD with acute exacerbation J44.1 [place] [address] [address] Oct, [place] [address] [address] Oct, Left shoulder pain M25.512 ; Chronic headaches R51 ; Environmental allergies Z91.09 ; GERD (gastroesophageal reflux disease) K21.9 ; Insomnia G47.00 ; Hypertension I10 ; Depression F32.9 and 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 [place] [address] [place] [id number] [place] [address] Sep, [place] [id number] [place] [address] Sep, COPD (chronic obstructive pulmonary disease) J44.9 [place] [address] [place] [id number] [place] [address] Sep, Bronchitis J40 [place] [address] [place] [id number] [place] [address] Aug, Cervicalgia 723.1 ; Chronic hepatitis C without mention of hepatic coma 070.54 ; Essential hypertension 401.9 ; Chronic headaches R51 ; Environmental allergies Z91.09 ; GERD (gastroesophageal reflux disease) K21.9 ; Insomnia G47.00 ; Depression F32.9 and COPD (chronic obstructive pulmonary disease) J44.9 [place] [address] [place] [id number] [place] [address] Jul, Essential hypertension 401.9 ; Hypertension I10 ; Depression F32.9 ; Anxiety F41.9 ; Chronic headaches R51 and Cervicalgia M54.2 [place] [id number] [place] [address] Jul, Essential hypertension 401.9 and Anxiety F41.[address] [address] Jul, [address] [address] Jul, [address] [address] Jul, Insomnia G47.00 ; GERD (gastroesophageal reflux disease) K21.9 ; Essential hypertension 401.9 ; Bipolar I disorder, most recent episode (or current) depressed, moderate 296.52 ; Hepatitis C B19.20 ; Depression F32.9 ; Hypertension I10 ; 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 ; Chronic headaches R51 and Chronic pain G89.29 [place] [id number] [place] [address] Jun, [place] [id number] [place] [address] Jun, Chronic headaches R51 ; Environmental allergies Z91.09 ; GERD (gastroesophageal reflux disease) K21.9 ; Insomnia G47.00 ; Hepatitis C B19.20 ; Hypertension I10 ; Depression F32.9 ; 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 and Chronic pain G89.[address] [address] Jun, [address] [address] Jun, Vision changes H53.[address] [address] Apr, [facility] [id number] [address] Apr, Bipolar I disorder, most recent episode (or current) depressed, moderate 296.52 ; Other chronic pain 338.29 ; Chronic hepatitis C without mention of hepatic coma 070.54 ; Essential hypertension 401.9 ; Environmental allergies V15.09 and GERD (gastroesophageal reflux disease) 530.81 [facility] [id number] [place] [address] Mar, [facility] [id number] [place] [address] Mar, [facility] [id number] [place] [address] Mar, [facility] [id number] [place] [address] Mar, [facility] [id number] [place] [address] Mar, [facility] [id number] [place] [address] Feb, Routine gynecological examination V72.31 ; Breast cancer screening V76.10 and Tobacco abuse 305.1 [facility] [address] [address] Feb, [facility] [address] [address] January, [facility] [address] [address] January, [facility] [id number] [place] [address] January, [facility] [address] [address] January, [facility] [id number] [place] [address] January, Mood disorder 296.90 and Anxiety 300.00 [facility] [address] [address] January, [facility] [id number] [place] [address] Dec, Headache 784.0 ; Other chronic pain 338.29 and Cervicalgia 723.1 [facility] [id number] [place] [address] Dec, [facility] [id number] [place] [address] Dec, [facility] [id number] [place] [address] Nov, [facility] [id number] [place] [address] Nov, [facility] [address] [place] [address] Oct, [facility] [id number] [place] [address] Oct, [facility] [address] [address] Oct, [facility] [address] [address] Oct, [facility] [address] [address] Oct, [facility] [address] [place] [address] Oct, [facility] [id number] [place] [address] Oct, [facility] [address] [address] Oct, [facility] [place] [facility] [address] [id number] [place] [address] 18 Oct, 2014 [facility] [place] [facility] [address] [id number] [place] [address] 18 Oct, 2014 [facility] [place] [facility] [address] [id number] [place] [address] Oct, [facility] [place] [facility] [address] [id number] [place] [address] Oct, [facility] [place] [facility] [address] [id number] [place] [address] Sep, [facility] [place] [facility] [address] [id number] [place] [address] Sep, [facility] [place] [facility] [address] [id number] [place] [address] Sep, [facility] [place] [facility] [address] [id number] [place] [address] 15 Sep, 2014 [facility] [place] [facility] [address] [id number] [place] [address] Sep, [facility] [place] [facility] [address] [id number] [place] [address] Sep, [facility] [place] [facility] [address] [id number] [place] [address] Sep, [facility] [place] [facility] [address] [id number] [place] [address] Sep, [facility] [place] [facility] [address] [id number] [place] [address] Sep, [facility] [place] [facility] [address] [id number] [place] [address] Sep, [facility] [place] [facility] [address] [id number] [place] [address] Sep, [facility] [place] [facility] [address] [id number] [place] [address] Sep, [facility] [place] [facility] [address] [id number] [place] [address] Sep, [facility] [place] [facility] [address] [id number] [place] [address] Sep, [facility] [place] [facility] [address] [id number] [place] [address] Aug, [facility] [place] [facility] [address] [id number] [place] [address] Aug, [facility] [place] [facility] [address] [id number] [place] [address] Aug, [facility] [place] [facility] [address] [id number] [place] [address] Aug, [facility] [place] [facility] [address] [id number] [place] [address] Aug, [facility] [place] [facility] [address] [id number] [place] [address] Aug, [facility] [place] [facility] [address] [id number] [place] [address] Aug, [facility] [place] [facility] [address] [id number] [place] [address] Aug, [facility] [place] [facility] [address] [id number] [place] [address] Aug, [facility] [place] [facility] [address] [id number] [place] [address] Aug, [facility] [place] [facility] [address] [id number] [place] [address] Aug, [facility] [place] [facility] [address] [id number] [place] [address] Aug, [facility] [place] [facility] [address] [id number] [place] [address] Aug, [facility] [place] [facility] [address] [id number] [place] [address] Jul, [facility] [place] [facility] [address] [id number] [place] [address] Jul, [facility] [place] [facility] [address] [id number] [place] [address] Feb, [facility] [place] [facility] [address] [id number] [place] [address] Feb, [facility] [place] [facility] [address] [id number] [place] [address] January, [facility] [place] [facility] [address] [id number] [place] [address] January, [facility] [place] [facility] [address] [id number] [place] [address] January, [facility] [place] [facility] [address] [id number] [place] [address] January, [facility] [place] [facility] [address] [id number] [place] [address] Nov, [facility] [place] [facility] [address] [id number] [place] [address] Nov, [facility] [place] [facility] [address] [id number] [place] [address] Nov, [facility] [place] [facility] [address] [id number] [place] [address] Nov, [facility] [place] [facility] [address] [id number] [place] [address] Oct, [facility] [place] [facility] [address] [id number] [place] [address] Oct, [facility] [place] [facility] [address] [id number] [place] [address] Sep, [facility] [place] [facility] [address] [id number] [place] [address] Sep, [facility] [address] [id number] [place] [address] Sep, [facility] [place] [facility] [address] [id number] [place] [address] Sep, [facility] [place] [facility] [address] [facility] [id number] [place] [address] Aug, [facility] [place] [facility] [address] [id number] [place] [address] Aug, [facility] [place] [facility] [address] [id number] [place] [address] Aug, [facility] [place] [facility] [address] [id number] [place] [address] Aug, [facility] [place] [facility] [address] [id number] [place] [address] Aug, [facility] [place] [facility] [address] [id number] [place] [address] Aug, [facility] [place] [facility] [address] [id number] [place] [address] Aug, [facility] [place] [facility] [address] [id number] [place] [address] Jul, [facility] [place] [facility] [address] [id number] [place] [address] Jul, [facility] [place] [facility] [address] [id number] [place] [address] Jul, [facility] [place] [facility] [address] [id number] [place] [address] Jul, [facility] [place] [facility] [address] [id number] [place] [address] Jul, [facility] [place] [facility] [address] [facility] [id number] [place] [address] Jul, [facility] [place] [facility] [address] [id number] [place] [address] 08 Jul, 2013 [facility] [address] [id number] [place] [address] Jun, [facility] [address] [id number] [place] [address] Jun, [facility] [address] [facility] [id number] [place] [address] Jun, [facility] [address] [id number] [place] [address] Jun, [facility] [address] [facility] [id number] [place] [address] Jul, [facility] [address] [facility] [id number] [place] [address] Jul, [facility] [address] [facility] [id number] [place] [address] Jul, [facility] [address] [facility] [id number] [place] [address] Jul, [facility] [address] [facility] [id number] [place] [address] Jun, [facility] [address] [facility] [id number] [place] [address] Jun, [facility] [address] [facility] [id number] [place] [address] 29 Jun, 2009 [facility] [address] [facility] [id number] [place] [address] 28 Jun, 2009 [facility] [address] [facility] [id number] [place] [address] 15 Jun, 2009 [facility] [address] [facility] [id number] [place] [address] Mar, [facility] [address] [facility] [id number] [place] [address] January, IMMUNIZATIONS No Known Immunizations SOCIAL HISTORY Never Assessed REASON FOR VISIT PLAN OF CARE VITAL SIGNS MEDICATIONS Unknown Medications RESULTS No Results PROCEDURES No Known procedures INSTRUCTIONS MEDICATIONS ADMINISTERED No Known Medications MEDICAL (GENERAL) HISTORY Type Description Date Medical History hypertension Medical History hyperlipidemia Medical History chronic renal insufficiency Medical History CAD Medical History chronic obstructive pulmonary disease (COPD) Medical History bipolar disorder Medical History PTSD Medical History hx of polysubstance abuse Medical History allergic rhinitis Medical History degeneratie disc disease throughout spine Medical History History of cervical cancer Medical History hepatitis C - resolved, no tx needed Surgical History tubal ligation 1992 Surgical History arthroscopic knee surgery; right 2011 Surgical History oopherectomy 2008 Surgical History section 1992 Surgical History tendon repair R thumb 1998 Surgical History carpal tunnel release 1998,2014 Surgical History hysterectomy; partial 1998 Surgical History C3-C7 fusion w/ discectomy-Benedict Hamm 01/2015 Surgical History Heart Cath 01/18/16 Hospitalization History surgeries Hospitalization History chest pain 01/17/16 Hospitalization History child Hospitalization History low blood pressure--via [facility] 12/2017
--- OUTSIDE RECORDS SUMMARY | 2019-04-09 01:19 | XMS REPORT ---
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 Active 87542735 Problem Spinal stenosis of thoracolumbar region M48.05 Active 17599470 Problem Chronic headaches R51 Active 329794157 Problem Hypertension I10 Active 11621104 Problem GERD (gastroesophageal reflux disease) K21.9 Active 173912985 Problem Tobacco abuse Z72.0 Active 49651092 Problem Dyslipidemia E78.5 Active 781736553 Problem Acute right hip pain M25.551 Active 07371635 Problem Environmental allergies Z91.09 Active 008424441 Problem Primary insomnia F51.01 Active 5601187 Problem Chronic pain G89.29 Active 30144725 Problem Obsessive-compulsive disorder, unspecified type F42.9 Active 017502527 Problem Bipolar I disorder F31.9 Active 935186987 Problem Spondylosis of cervical region without myelopathy or radiculopathy M47.812 Active 290217757 Problem DDD (degenerative disc disease), thoracolumbar M51.35 Active 49578183 ALLERGIES No Information ENCOUNTERS Encounter Location Date Diagnosis [facility] [address] [place] [address] Feb, Chronic pain G89.29 [facility] [address] [place] [address] Feb, [facility] [address] [place] [address] January, GERD (gastroesophageal reflux disease) K21.9 ; Hypertension I10 ; Chronic pain G89.29 ; Dyslipidemia E78.5 ; Bipolar I disorder F31.9 ; 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 ; Primary insomnia F51.01 ; Encounter for screening for malignant neoplasm of colon Z12.11 and Screening for breast cancer Z12.31 [facility] [place] [address] [id number] [place] [id number] Dec, Depression F32.9 ; Hypertension I10 ; Dyslipidemia E78.5 and Chronic pain G89.29 [facility] [place] [address] [id number] [place] [id number] Dec, [facility] [place] [address] [id number] [place] [address] Dec, Spinal stenosis of thoracolumbar region M48.05 ; DDD (degenerative disc disease), thoracolumbar M51.35 ; Spondylosis of cervical region without myelopathy or radiculopathy M47.812 ; Chronic pain G89.29 ; Acute right hip pain M25.551 and Depression F32.9 [facility] [place] [address] [id number] [place] [address] Dec, Chronic pain G89.29 [facility] [place] [address] [id number] [place] [id number] Nov, [facility] [place] [address] [id number] [place] [id number] Nov, Chronic pain G89.29 [facility] [place] [address] [id number] [place] [id number] Nov, [facility] [place] [address] [id number] [place] [id number] Oct, [facility] [place] [address] [id number] [place] [address] Oct, Chronic pain G89.29 [facility] [place] [address] [id number] [place] [address] Sep, Chronic pain G89.29 [facility] [place] [address] [id number] [place] [address] Sep, [facility] [place] [address] [id number] [place] [address] Sep, Otitis media H66.90 and URI (upper respiratory infection) J06.9 [facility] [place] [address] [id number] [place] [address] Aug, Chronic pain G89.29 [facility] [place] [address] [id number] [place] [id number] Aug, 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 [facility] [place] [address] [id number] [place] [address] Aug, Sinusitis J32.9 and Nausea R11.0 [facility] [place] [address] [id number] [place] [address] Aug, Chronic pain G89.29 ; Spondylosis of cervical region without myelopathy or radiculopathy M47.812 and DDD (degenerative disc disease), thoracolumbar M51.35 [facility] [place] [address] [id number] [place] [address] Aug, Bipolar I disorder F31.9 [facility] [place] [address] [id number] [place] [id number] Aug, Bipolar I disorder F31.9 and Obsessive-compulsive disorder, unspecified type F42.9 [facility] [place] [address] [id number] [place] [address] Jul, Chronic pain G89.29 [facility] [place] [address] [id number] [place] [id number] Jul, [facility] [place] [address] [id number] [place] [address] Jul, Bipolar I disorder F31.9 and Obsessive-compulsive disorder, unspecified type F42.9 [facility] [place] [address] [id number] [place] [address] Jul, GERD (gastroesophageal reflux disease) K21.9 ; Hypertension I10 ; 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 ; Chronic pain G89.29 ; Dyslipidemia E78.5 ; Environmental allergies Z91.09 and Encounter for immunization Z23 [facility] [address] [id number] [place] [id number] Jun, Chronic pain G89.29 [facility] [address] [id number] [id number] Jun, [facility] [place] [facility] [address] [id number] [id number] Jun, [address] [place] [id number] Jun, Dyslipidemia E78.5 [address] [address] Jun, Chronic pain G89.29 [place] [id number] [place] [id number] May, [address] [place] [id number] May, Chronic pain G89.29 ; Tobacco abuse Z72.0 ; High risk medication use Z79.899 ; Dyslipidemia E78.5 ; Hepatitis C B19.20 ; Hypertension I10 ; Environmental allergies Z91.09 ; Anxiety F41.9 ; 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 and GERD (gastroesophageal reflux disease) K21.9 [place] [id number] [place] [id number] Apr, Chronic pain G89.29 [facility] [id number] [place] [address] Mar, Costochondral separation, initial encounter S23.29XA and Injury of toe on left foot, initial encounter S99.922A [place] [id number] [place] [id number] Mar, Chronic pain G89.29 [facility] [id number] [place] [address] Feb, Poison elda L23.7 [place] [id number] [place] [address] [id number] Feb, Chronic pain G89.29 [facility] [id number] [place] [address] Feb, Bronchitis J40 [address] [place] [id number] Feb, [address] [address] Feb, Chronic pain G89.29 [place] [id number] [place] [id number] January, Vaginal discharge N89.8 ; Increased urinary frequency R35.0 ; Acute cystitis with hematuria N30.01 ; Other specified bacterial agents as the cause of diseases classified elsewhere B96.89 and Acute vaginitis N76.[address] [id number] January, Chronic pain G89.29 and Candidiasis B37.9 [facility] [address] [place] [address] January, [facility] [address] [place] [id number] [place] [address] Dec, Acute frontal sinusitis, recurrence not specified J01.10 and Cough R05 [place] [id number] [place] [id number] Dec, [place] [id number] [place] [id number] Nov, [facility] [address] [place] [id number] [place] [address] Nov, Bronchitis J40 [address] [id number] Nov, [facility] [id number] [place] [address] Oct, COPD with acute exacerbation J44.1 [address] [place] [address] [id number] Oct, Chronic pain G89.29 [place] [id number] [place] [address] [id number] Oct, [place] [id number] [place] [id number] Sep, Chronic pain G89.29 ; Depression F32.9 ; Anxiety F41.9 ; 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 and Flu-like symptoms R68.89 [facility] [address] [place] [id number] [place] [address] Aug, Chronic pain G89.29 ; Open bite of other finger without damage to nail, initial encounter S61.258A and Bitten by dog, initial encounter W54.0XXA [facility] [id number] [place] [address] Jul, Menopause Z78.0 ; Ankle swelling, unspecified laterality M25.473 ; Chronic pain G89.29 and Tobacco abuse Z72.0 [facility] [id number] [place] [address] Jun, [place] [id number] [place] [address] Jun, Chronic pain G89.29 [facility] [id number] [place] [address] May, Dysuria R30.0 ; Dehydration E86.0 and Hypertension I10 [place] [id number] [place] [address] 19 May, 2017 Menopause Z78.0 ; Depression F32.9 ; Chronic pain G89.29 ; Environmental allergies Z91.09 ; 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 and Encounter for immunization Z23 [place] [id number] [place] [address] May, Chronic pain G89.29 [place] [id number] [place] [address] Apr, Chronic pain G89.29 [place] [id number] [place] [address] Apr, Routine gynecological examination Z01.419 [place] [id number] [place] [address] Mar, Chronic pain G89.29 [place] [address] [id number] [address] Feb, [place] [id number] [place] [address] Feb, Chronic pain G89.29 [place] [id number] [place] [address] Feb, [place] [id number] [place] [address] January, Chronic pain G89.29 [place] [id number] [place] [address] January, Routine gynecological examination Z01.419 and Breast cancer screening Z12.39 [place] [id number] [place] [address] January, Chronic pain G89.29 [place] [id number] [place] [address] Dec, Postmenopausal HRT (hormone replacement therapy) Z79.890 [place] [id number] [place] [address] Dec, [place] [id number] [place] [address] Nov, Chronic pain G89.29 [place] [id number] [place] [address] Nov, Chronic headaches R51 ; GERD (gastroesophageal reflux disease) K21.9 ; Hypertension I10 ; 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 ; Hepatitis C B19.20 ; Chronic pain G89.29 ; Pain of right thumb M79.644 ; Insomnia G47.00 ; Depression F32.9 ; Environmental allergies Z91.09 and Closed fracture of tuft of distal phalanx of finger, with routine healing, subsequent encounter S62.639D [place] [id number] [place] [address] Nov, [address] [id number] [address] Nov, [facility] [id number] [place] [address] Nov, [facility] [id number] [place] [address] Nov, Hypertension I10 [facility] [address] [address] Nov, [facility] [id number] [place] [address] Nov, [facility] [id number] [place] [address] Oct, Anxiety F41.9 [facility] [id number] [place] [address] Oct, [facility] [id number] [place] [address] Oct, Acute upper respiratory infection, unspecified J06.9 and Other viral agents as the cause of diseases classified elsewhere B97.89 [facility] [id number] [place] [address] Oct, [facility] [id number] [place] [address] Oct, Right acute serous otitis media, recurrence not specified H65.01 and Pharyngitis, unspecified etiology J02.9 [facility] [id number] [place] [address] Sep, [facility] [id number] [place] [address] Aug, Environmental allergies Z91.09 [facility] [id number] [place] [address] Aug, [facility] [id number] [place] [address] 28 Jul, 2016 Atypical nevi D22.9 [facility] [address], [place] [address] 15 Jul, 2016 [facility] [address], [place] [address] 10 Jul, 2016 [facility] [address], [place] [address] 07 Jul, 2016 [facility] [address], [place] [address] Jun, [facility] [address] [place] [address] May, [facility] [address], [place] [address] May, [facility] [id number], [place] [address] May, [facility] [address], [place] [address] Apr, [facility] [address], [place] [address] Apr, Chronic headaches R51 ; GERD (gastroesophageal reflux disease) K21.9 ; Hypertension I10 ; 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 ; Anxiety F41.9 ; COPD with acute exacerbation J44.1 ; Environmental allergies Z91.09 ; Depression F32.9 and Chronic pain G89.29 [facility] [address], [place] [address] Feb, Chronic headaches R51 and Chronic pain G89.29 [facility] [address], [place] [address] January, Chronic pain G89.29 and Anxiety F41.9 [facility] [address], [place] [address] January, Depression F32.9 and Hypertension I10 [facility] [id number] [place] [address] January, Chronic pain G89.29 [facility] [address] [address] Dec, [facility] [id number] [place] [address] Dec, [facility] [address] [address] Dec, Chronic headaches R51 ; Chronic pain G89.29 ; Environmental allergies Z91.09 ; GERD (gastroesophageal reflux disease) K21.9 ; Insomnia G47.00 ; Hypertension I10 and COPD with acute exacerbation J44.1 [place] [address] [address] Dec, [place] [address] [address] Dec, Chest pain R07.9 ; GERD (gastroesophageal reflux disease) K21.9 and Nausea R11.0 [place] [id number] [place] [address] Nov, [place] [id number] [place] [address] Oct, COPD with acute exacerbation J44.1 ; Chronic headaches R51 ; GERD (gastroesophageal reflux disease) K21.9 ; Insomnia G47.00 ; Hypertension I10 ; Depression F32.9 and Anxiety F41.9 [place] [id number] [place] [address] Oct, [place] [address] [address] Oct, [place] [id number] [place] [address] Oct, [place] [address] [address] 17 Oct, [address] [address] 15 Oct, 2015 Flu-like symptoms R68.89 and COPD with acute exacerbation J44.[address] [address] 12 Oct, [address] [address] Oct, Left shoulder pain M25.512 ; Chronic headaches R51 ; Environmental allergies Z91.09 ; GERD (gastroesophageal reflux disease) K21.9 ; Insomnia G47.00 ; Hypertension I10 ; Depression F32.9 and 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 [address] Sep, [address] [address] Sep, COPD (chronic obstructive pulmonary disease) J44.[address] [address] Sep, Bronchitis J40 [address] [address] Aug, Cervicalgia 723.1 ; Chronic hepatitis C without mention of hepatic coma 070.54 ; Essential hypertension 401.9 ; Chronic headaches R51 ; Environmental allergies Z91.09 ; GERD (gastroesophageal reflux disease) K21.9 ; Insomnia G47.00 ; Depression F32.9 and COPD (chronic obstructive pulmonary disease) J44.[address] [address] Jul, Essential hypertension 401.9 ; Hypertension I10 ; Depression F32.9 ; Anxiety F41.9 ; Chronic headaches R51 and Cervicalgia M54.[address] [address] Jul, Essential hypertension 401.9 and Anxiety F41.9 [address] [place] [address] Jul, [address] [address] Jul, [place] [id number] [place] [address] Jul, Insomnia G47.00 ; GERD (gastroesophageal reflux disease) K21.9 ; Essential hypertension 401.9 ; Bipolar I disorder, most recent episode (or current) depressed, moderate 296.52 ; Hepatitis C B19.20 ; Depression F32.9 ; Hypertension I10 ; 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 ; Chronic headaches R51 and Chronic pain G89.29 [place] [id number] [place] [address] Jun, [address] [address] Jun, Chronic headaches R51 ; Environmental allergies Z91.09 ; GERD (gastroesophageal reflux disease) K21.9 ; Insomnia G47.00 ; Hepatitis C B19.20 ; Hypertension I10 ; Depression F32.9 ; 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 and Chronic pain G89.29 [place] [id number] [place] [address] Jun, [place] [id number] [place] [address] Jun, Vision changes H53.9 [place] [id number] [place] [address] Apr, [address] [address] Apr, Bipolar I disorder, most recent episode (or current) depressed, moderate 296.52 ; Other chronic pain 338.29 ; Chronic hepatitis C without mention of hepatic coma 070.54 ; Essential hypertension 401.9 ; Environmental allergies V15.09 and GERD (gastroesophageal reflux disease) 530.81 [facility] [address], [place] [address] Mar, [facility] [address], [place] [address] Mar, [facility] [id number], [place] [address] Mar, [facility] [id number] [place] [address] Mar, [facility] [id number] [place] [address] Mar, [facility] [id number] [place] [address] Feb, Routine gynecological examination V72.31 ; Breast cancer screening V76.10 and Tobacco abuse 305.1 [facility] [id number], [place] [address] Feb, [facility] [address], [place] [address] January, [facility] [id number], [place] [address] January, [facility] [address], [place] [address] January, [facility] [address], [place] [address] January, [facility] [address], [place] [address] January, Mood disorder 296.90 and Anxiety 300.00 [facility] [id number], [place] [address] January, [facility] [address], [place] [address] 30 Apr, 2015 Headache 784.0 ; Other chronic pain 338.29 and Cervicalgia 723.[address] [facility] [address] [place] [address] 14 Dec, 2014 [facility] [address], [place] [address] 13 Dec, 2014 [facility] [address], [place] [address] 18 Nov, 2014 [facility] [address] [facility] [id number] [place] [address] 18 Nov, 2014 [facility] [address] [place] [address] Oct, [facility] [place] [facility] [id number] [place] [address] Oct, [facility] [address] [place] [address] Oct, [facility] [address], [place] [address] Oct, [facility] [address] [place] [address] Oct, [facility] [address], [place] [address] 20 Oct, 2014 [facility] [place] [facility] [address], [place] [address] Oct, [facility] [address], [place] [address] Oct, [facility] [place] [facility] [address], [place] [address] 18 Oct, 2014 [facility] [place] [facility] [address], [place] [address] 18 Oct, 2014 [facility] [place] [facility] [address], [place] [address] Oct, [facility] [place] [facility] [address] [id number] [place] [address] 17 Oct, 2014 [facility] [place] [facility] [address] [id number] [place] [address] Sep, [facility] [place] [facility] [address] [id number] [place] [address] Sep, [facility] [place] [facility] [address] [id number] [place] [address] Sep, [facility] [place] [facility] [address] [id number] [place] [address] Sep, [facility] [place] [facility] [address] [id number] [place] [address] Sep, [facility] [place] [facility] [address] [id number] [place] [address] Sep, [facility] [place] [facility] [address] [id number] [place] [address] Sep, [facility] [place] [facility] [address] [id number] [place] [address] Sep, [facility] [place] [facility] [address] [id number] [place] [address] Sep, [facility] [place] [facility] [address] [id number], [place] [address] Sep, [facility] [place] [facility] [address] [id number], [place] [address] Sep, [facility] [place] [facility] [address] [id number] [place] [address] Sep, [facility] [place] [facility] [address] [id number], [place] [address] Sep, [facility] [place] [facility] [address] [id number] [place] [address] Sep, [facility] [place] [facility] [address] [id number] [place] [address] Aug, [facility] [place] [facility] [address] [id number] [place] [address] Aug, [facility] [place] [facility] [address] [id number] [place] [address] Aug, [facility] [place] [facility] [address] [id number] [place] [address] Aug, [facility] [place] [facility] [address] [id number] [place] [address] Aug, [facility] [place] [facility] [address] [id number] [place] [address] Aug, [facility] [place] [facility] [address] [id number] [place] [address] Aug, [facility] [place] [facility] [address] [id number] [place] [address] Aug, [facility] [place] [facility] [address] [id number] [place] [address] Aug, [facility] [place] [facility] [address] [id number] [place] [address] Aug, [facility] [place] [facility] [address] [id number] [place] [address] Aug, [facility] [place] [facility] [address] [id number] [place] [address] Aug, [facility] [place] [facility] [address] [id number] [place] [address] Aug, [facility] [place] [facility] [address] [id number] [place] [address] Jul, [facility] [place] [facility] [address] [id number] [place] [address] Jul, [facility] [place] [facility] [address] [id number] [place] [address] Feb, [facility] [place] [facility] [address] [id number] [place] [address] Feb, [facility] [place] [facility] [address] [id number] [place] [address] January, [facility] [place] [facility] [address] [id number] [place] [address] January, [facility] [place] [facility] [address] [id number] [place] [address] January, [facility] [place] [facility] [address] [id number] [place] [address] January, [facility] [place] [facility] [address] [id number] [place] [address] Nov, [facility] [place] [facility] [address] [id number] [place] [address] Nov, [facility] [place] [facility] [address] [id number] [place] [address] Nov, [facility] [place] [facility] [address] [id number] [place] [address] Nov, [facility] [place] [facility] [address] [id number] [place] [address] Oct, [facility] [place] [facility] [address] [id number] [place] [address] Oct, [facility] [place] [facility] [address] [id number] [place] [address] Sep, [facility] [place] [facility] [address] [id number] [place] [address] Sep, [facility] [place] [facility] [address] [id number] [place] [address] Sep, [facility] [place] [facility] [address] [id number] [place] [address] Sep, [facility] [place] [facility] [address] [id number], [place] [address] Aug, [facility] [address] [id number] [place] [address] Aug, [facility] [place] [facility] [address] [id number], [place] [address] Aug, [facility] [place] [facility] [address] [facility] [id number] [place] [address] Aug, [facility] [place] [facility] [address] [id number], [place] [address] 05 Aug, 2013 [facility] [place] [facility] [address] [id number] [place] [address] Aug, [facility] [place] [facility] [address] [id number] [place] [address] Aug, [facility] [address] [id number], [place] [address] Jul, [facility] [place] [facility] [address] [id number] [place] [address] Jul, [facility] [place] [facility] [address] [id number], [place] [address] Jul, [facility] [place] [facility] [address] [id number], [place] [address] Jul, [facility] [place] [facility] [address] [id number], [place] [address] Jul, [facility] [place] [facility] [address] [id number], [place] [address] Jul, [facility] [place] [facility] [address] [id number], [place] [address] 08 Jul, 2013 [facility] [place] [facility] [address] [id number], [place] [address] 31 Jun, 2013 [facility] [place] [facility] [address] [id number], [place] [address] 30 Jun, 2013 [facility] [place] [facility] [id number], [place] [address] 30 Jun, 2013 [facility] [id number], [place] [address] Jun, [facility] [id number], [place] [address] Jul, [facility] [id number], [place] [address] Jul, [facility] [id number], [place] [address] Jul, [facility] [id number] [place] [address] Jul, [facility] [id number], [place] [address] Jun, [facility] [id number] [place] [address] Jun, [facility] [id number], [place] [address] Jun, [facility] [id number], [place] [address] Jun, [facility] [id number], [place] [address] Jun, [facility] [id number], [place] [address] Mar, [facility] [address] [id number], [place] [address] January, IMMUNIZATIONS No Known Immunizations SOCIAL HISTORY [...] History child Hospitalization History low blood pressure--via [facility] 12/2017
--- OUTSIDE RECORDS SUMMARY | 2019-04-09 01:20 | XMS REPORT ---
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 Active 04941994 Problem Spinal stenosis of thoracolumbar region M48.05 Active 57162522 Problem Chronic headaches R51 Active 085018021 Problem Hypertension I10 Active 81318985 Problem GERD (gastroesophageal reflux disease) K21.9 Active 674196468 Problem Tobacco abuse Z72.0 Active 83338737 Problem Dyslipidemia E78.5 Active 107895524 Problem Acute right hip pain M25.551 Active 58816613 Problem Environmental allergies Z91.09 Active 866106400 Problem Primary insomnia F51.01 Active 2557799 Problem Chronic pain G89.29 Active 18166449 Problem Obsessive-compulsive disorder, unspecified type F42.9 Active 948051291 Problem Bipolar I disorder F31.9 Active 888974512 Problem Spondylosis of cervical region without myelopathy or radiculopathy M47.812 Active 595783978 Problem DDD (degenerative disc disease), thoracolumbar M51.35 Active 84637321 ALLERGIES No Information ENCOUNTERS Encounter Location Date Diagnosis [facility] [address] [place] [address] Feb, Chronic pain G89.29 [facility] [address] [place] [address] Feb, [facility] [address] [place] [address] January, GERD (gastroesophageal reflux disease) K21.9 ; Hypertension I10 ; Chronic pain G89.29 ; Dyslipidemia E78.5 ; Bipolar I disorder F31.9 ; 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 ; Primary insomnia F51.01 ; Encounter for screening for malignant neoplasm of colon Z12.11 and Screening for breast cancer Z12.31 [facility] [place] [address] [id number] [place] [id number] Dec, Depression F32.9 ; Hypertension I10 ; Dyslipidemia E78.5 and Chronic pain G89.29 [facility] [place] [address] [id number] [place] [id number] Dec, [facility] [place] [address] [id number] [place] [id number] Dec, Spinal stenosis of thoracolumbar region M48.05 ; DDD (degenerative disc disease), thoracolumbar M51.35 ; Spondylosis of cervical region without myelopathy or radiculopathy M47.812 ; Chronic pain G89.29 ; Acute right hip pain M25.551 and Depression F32.9 [facility] [place] [address] [id number] [place] [id number] Dec, Chronic pain G89.29 [facility] [place] [address] [id number] [place] [id number] Nov, [facility] [place] [address] [id number] [place] [id number] Nov, Chronic pain G89.29 [facility] [place] [address] [id number] [place] [id number] Nov, [facility] [place] [address] [id number] [place] [id number] Oct, [facility] [place] [address] [id number] [place] [id number] Oct, Chronic pain G89.29 [facility] [place] [address] [id number] [place] [id number] Sep, Chronic pain G89.29 [facility] [place] [address] [id number] [place] [address] Sep, [facility] [place] [address] [id number] [place] [address] Sep, Otitis media H66.90 and URI (upper respiratory infection) J06.9 [facility] [place] [address] [id number] [place] [address] Aug, Chronic pain G89.29 [facility] [place] [address] [id number] [place] [address] Aug, 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 [facility] [place] [address] [id number] [place] [id number] Aug, Sinusitis J32.9 and Nausea R11.0 [facility] [place] [address] [id number] [place] [id number] Aug, Chronic pain G89.29 ; Spondylosis of cervical region without myelopathy or radiculopathy M47.812 and DDD (degenerative disc disease), thoracolumbar M51.35 [facility] [place] [address] [id number] [place] [id number] Aug, Bipolar I disorder F31.9 [facility] [place] [address] [id number] [place] [id number] Aug, Bipolar I disorder F31.9 and Obsessive-compulsive disorder, unspecified type F42.9 [facility] [place] [address] [id number] [place] [id number] Jul, Chronic pain G89.29 [facility] [place] [address] [id number] [place] [id number] Jul, [facility] [place] [address] [id number] [place] [address] Jul, Bipolar I disorder F31.9 and Obsessive-compulsive disorder, unspecified type F42.9 [facility] [place] [address] [id number] [place] [id number] Jul, GERD (gastroesophageal reflux disease) K21.9 ; Hypertension I10 ; 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 ; Chronic pain G89.29 ; Dyslipidemia E78.5 ; Environmental allergies Z91.09 and Encounter for immunization Z23 [facility] [address] [id number] [place] [id number] Jun, Chronic pain G89.29 [facility] [address] [id number] [place] [id number] Jun, [facility] [address] [id number] [id number] Jun, [address] [place] [id number] Jun, Dyslipidemia E78.5 [address] [address] Jun, Chronic pain G89.29 [place] [id number] [place] [address] [id number] May, [place] [id number] [place] [id number] May, Chronic pain G89.29 ; Tobacco abuse Z72.0 ; High risk medication use Z79.899 ; Dyslipidemia E78.5 ; Hepatitis C B19.20 ; Hypertension I10 ; Environmental allergies Z91.09 ; Anxiety F41.9 ; 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 and GERD (gastroesophageal reflux disease) K21.9 [place] [id number] [place] [id number] Apr, Chronic pain G89.29 [place] [address] [address] Mar, Costochondral separation, initial encounter S23.29XA and Injury of toe on left foot, initial encounter S99.922A [address] [place] [address] [id number] Mar, Chronic pain G89.29 [place] [address] [place] [place] [id number] [place] [address] Feb, Poison elda L23.7 [place] [id number] [place] [id number] Feb, Chronic pain G89.29 [place] [address] [address] Feb, Bronchitis J40 [address] [place] [address] [id number] Feb, [place] [id number] [place] [address] [id number] Feb, Chronic pain G89.29 [address] [place] [address] [id number] January, Vaginal discharge N89.8 ; Increased urinary frequency R35.0 ; Acute cystitis with hematuria N30.01 ; Other specified bacterial agents as the cause of diseases classified elsewhere B96.89 and Acute vaginitis N76.0 [place] [id number] [place] [address] [id number] January, Chronic pain G89.29 and Candidiasis B37.9 [facility] [address] [address] January, [facility] [address] [address] Dec, Acute frontal sinusitis, recurrence not specified J01.10 and Cough R05 [place] [id number] [place] [address] [id number] Dec, [place] [id number] [place] [address] [id number] Nov, [facility] [address] [place] [id number] [place] [address] Nov, Bronchitis J40 [address] [id number] Nov, [facility] [address] [id number] [place] [address] Oct, COPD with acute exacerbation J44.1 [address] [place] [address] [id number] Oct, Chronic pain G89.29 [place] [id number] [place] [id number] Oct, [place] [id number] [place] [address] [id number] Sep, Chronic pain G89.29 ; Depression F32.9 ; Anxiety F41.9 ; 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 and Flu-like symptoms R68.89 [facility] [place] [id number] [place] [address] Aug, Chronic pain G89.29 ; Open bite of other finger without damage to nail, initial encounter S61.258A and Bitten by dog, initial encounter W54.0XXA [facility] [id number] [place] [address] Jul, Menopause Z78.0 ; Ankle swelling, unspecified laterality M25.473 ; Chronic pain G89.29 and Tobacco abuse Z72.0 [facility] [address] [address] Jun, [place] [address] [address] Jun, Chronic pain G89.29 [facility] [address] [address] May, Dysuria R30.0 ; Dehydration E86.0 and Hypertension I10 [place] [address] [address] 19 May, 2017 Menopause Z78.0 ; Depression F32.9 ; Chronic pain G89.29 ; Environmental allergies Z91.09 ; 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 and Encounter for immunization Z23 [place] [id number] [place] [address] May, Chronic pain G89.29 [place] [id number] [place] [address] Apr, Chronic pain G89.29 [place] [address] [address] Apr, Routine gynecological examination Z01.419 [place] [address] [address] Mar, Chronic pain G89.29 [place] [address] [place] [address] Feb, [place] [id number] [place] [address] Feb, Chronic pain G89.29 [place] [id number] [place] [address] Feb, [place] [id number] [place] [address] January, Chronic pain G89.29 [place] [address] [address] January, Routine gynecological examination Z01.419 and Breast cancer screening Z12.39 [place] [id number] [place] [address] January, Chronic pain G89.29 [place] [address] [id number] [place] [address] Dec, Postmenopausal HRT (hormone replacement therapy) Z79.890 [place] [id number] [place] [address] Dec, [place] [address] [address] [id number] [place] [address] Nov, Chronic pain G89.29 [place] [id number] [place] [address] Nov, Chronic headaches R51 ; GERD (gastroesophageal reflux disease) K21.9 ; Hypertension I10 ; 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 ; Hepatitis C B19.20 ; Chronic pain G89.29 ; Pain of right thumb M79.644 ; Insomnia G47.00 ; Depression F32.9 ; Environmental allergies Z91.09 and Closed fracture of tuft of distal phalanx of finger, with routine healing, subsequent encounter S62.639D [place] [id number] [place] [address] Nov, [place] [address] [id number] [address] 10 Nov, 2016 [facility] [address] [place] [address] Nov, [facility] [id number] [place] [address] 08 Nov, 2016 Hypertension I10 [facility] [id number] [place] [address] Nov, [facility] [id number] [place] [address] Nov, [facility] [id number] [place] [address] Oct, Anxiety F41.9 [facility] [id number] [place] [address] Oct, [facility] [id number] [place] [address] Oct, Acute upper respiratory infection, unspecified J06.9 and Other viral agents as the cause of diseases classified elsewhere B97.89 [facility] [id number] [place] [address] Oct, [facility] [address] [place] [address] Oct, Right acute serous otitis media, recurrence not specified H65.01 and Pharyngitis, unspecified etiology J02.9 [facility] [address] [address] Sep, [facility] [id number] [place] [address] Aug, Environmental allergies Z91.09 [facility] [address] [place] [address] Aug, [facility] [id number] [place] [address] Jul, Atypical nevi D22.9 [facility] [address] [address] 15 Jul, 2016 [facility] [id number] [place] [address] 10 Jul, 2016 [facility] [id number] [place] [address] 07 Jul, 2016 [facility] [id number] [place] [address] Jun, [facility] [id number] [place] [address] 23 May, 2016 [facility] [id number] [place] [address] 13 May, 2016 [facility] [id number] [place] [address] May, [facility] [id number] [place] [address] Apr, [facility] [id number] [place] [address] Apr, Chronic headaches R51 ; GERD (gastroesophageal reflux disease) K21.9 ; Hypertension I10 ; 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 ; Anxiety F41.9 ; COPD with acute exacerbation J44.1 ; Environmental allergies Z91.09 ; Depression F32.9 and Chronic pain G89.29 [facility] [address] [id number] [address] Feb, Chronic headaches R51 and Chronic pain G89.29 [facility] [address] [place] [id number] [place] [address] January, Chronic pain G89.29 and Anxiety F41.9 [facility] [address] [id number] [address] January, Depression F32.9 and Hypertension I10 [place] [address] [address] January, Chronic pain G89.29 [place] [address] [address] Dec, [place] [address] [address] Dec, [place] [address] [address] Dec, Chronic headaches R51 ; Chronic pain G89.29 ; Environmental allergies Z91.09 ; GERD (gastroesophageal reflux disease) K21.9 ; Insomnia G47.00 ; Hypertension I10 and COPD with acute exacerbation J44.1 [place] [address] [address] Dec, [place] [address] [address] Dec, Chest pain R07.9 ; GERD (gastroesophageal reflux disease) K21.9 and Nausea R11.0 [place] [address] [address] Nov, [place] [address] [address] Oct, COPD with acute exacerbation J44.1 ; Chronic headaches R51 ; GERD (gastroesophageal reflux disease) K21.9 ; Insomnia G47.00 ; Hypertension I10 ; Depression F32.9 and Anxiety F41.9 [place] [address] [address] Oct, [place] [address] [address] Oct, [place] [address] [address] Oct, [place] [address] [address] 17 Oct, 2015 [place] [id number] [place] [address] 15 Oct, 2015 Flu-like symptoms R68.89 and COPD with acute exacerbation J44.[address] [address] 12 Oct, [address] [address] Oct, Left shoulder pain M25.512 ; Chronic headaches R51 ; Environmental allergies Z91.09 ; GERD (gastroesophageal reflux disease) K21.9 ; Insomnia G47.00 ; Hypertension I10 ; Depression F32.9 and 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 [address] Sep, [address] [address] Sep, COPD (chronic obstructive pulmonary disease) J44.[address] [address] Sep, Bronchitis J40 [address] [address] Aug, Cervicalgia 723.1 ; Chronic hepatitis C without mention of hepatic coma 070.54 ; Essential hypertension 401.9 ; Chronic headaches R51 ; Environmental allergies Z91.09 ; GERD (gastroesophageal reflux disease) K21.9 ; Insomnia G47.00 ; Depression F32.9 and COPD (chronic obstructive pulmonary disease) J44.[address] [address] Jul, Essential hypertension 401.9 ; Hypertension I10 ; Depression F32.9 ; Anxiety F41.9 ; Chronic headaches R51 and Cervicalgia M54.[address] [address] Jul, Essential hypertension 401.9 and Anxiety F41.9 [place] [id number] [place] [address] Jul, [address] [address] Jul, [place] [id number] [place] [address] Jul, Insomnia G47.00 ; GERD (gastroesophageal reflux disease) K21.9 ; Essential hypertension 401.9 ; Bipolar I disorder, most recent episode (or current) depressed, moderate 296.52 ; Hepatitis C B19.20 ; Depression F32.9 ; Hypertension I10 ; 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 ; Chronic headaches R51 and Chronic pain G89.29 [place] [id number] [place] [address] Jun, [address] [address] Jun, Chronic headaches R51 ; Environmental allergies Z91.09 ; GERD (gastroesophageal reflux disease) K21.9 ; Insomnia G47.00 ; Hepatitis C B19.20 ; Hypertension I10 ; Depression F32.9 ; 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 and Chronic pain G89.29 [place] [id number] [place] [address] Jun, [address] [address] Jun, Vision changes H53.9 [place] [id number] [place] [address] Apr, [address] [address] Apr, Bipolar I disorder, most recent episode (or current) depressed, moderate 296.52 ; Other chronic pain 338.29 ; Chronic hepatitis C without mention of hepatic coma 070.54 ; Essential hypertension 401.9 ; Environmental allergies V15.09 and GERD (gastroesophageal reflux disease) 530.81 [facility] [address] [address] Mar, [facility] [id number] [address] Mar, [facility] [id number] [address] Mar, [facility] [address] [id number] [place] [address] Mar, [facility] [id number] [place] [address] Mar, [facility] [id number] [place] [address] Feb, Routine gynecological examination V72.31 ; Breast cancer screening V76.10 and Tobacco abuse 305.1 [facility] [id number] [address] Feb, [facility] [address] [address] January, [facility] [id number] [address] January, [facility] [address] [address] January, [facility] [id number] [address] January, [facility] [address] [address] January, Mood disorder 296.90 and Anxiety 300.00 [facility] [address] [address] January, [facility] [address] [address] Dec, Headache 784.0 ; Other chronic pain 338.29 and Cervicalgia 723.1 [facility] [place] [facility] [address] [facility] [id number] [place] [address] 14 Dec, 2014 [facility] [place] [facility] [address] [facility] [id number] [address] 13 Dec, 2014 [facility] [place] [facility] [address] [address] Nov, [facility] [place] [facility] [address] [facility] [id number] [address] Nov, [facility] [place] [facility] [address] [facility] [id number] [place] [address] Oct, [facility] [place] [facility] [address] [facility] [id number] [address] Oct, [facility] [place] [facility] [address] [address] Oct, [facility] [place] [facility] [address] [address] Oct, [facility] [place] [facility] [address] [address] Oct, [facility] [place] [facility] [address] [address] Oct, [facility] [place] [facility] [address] [address] Oct, 2014 [facility] [place] [facility] [address] [address] Oct, [facility] [place] [facility] [address] [address] Oct, [facility] [place] [facility] [address] [address] 18 Oct, 2014 [facility] [place] [facility] [address] [address] 17 Oct, 2014 [facility] [place] [facility] [address] [id number] [place] [address] 17 Oct, 2014 [facility] [place] [facility] [address] [id number] [place] [address] Sep, [facility] [place] [facility] [address] [id number] [place] [address] Sep, [facility] [place] [facility] [address] [id number] [place] [address] Sep, [facility] [place] [facility] [address] [id number] [place] [address] Sep, [facility] [place] [facility] [address] [id number] [place] [address] Sep, [facility] [place] [facility] [address] [id number] [place] [address] Sep, [facility] [place] [facility] [address] [id number] [place] [address] Sep, [facility] [place] [facility] [address] [id number] [place] [address] Sep, [facility] [place] [facility] [address] [id number] [address] Sep, [facility] [place] [facility] [address] [id number], [place] [address] Sep, [facility] [place] [facility] [address] [id number] [address] Sep, [facility] [place] [facility] [address] [id number] [address] Sep, [facility] [place] [facility] [address] [id number] [address] Sep, [facility] [place] [facility] [address] [id number] [address] Sep, [facility] [place] [facility] [address] [id number], [place] [address] Aug, [facility] [place] [facility] [address] [id number] [place] [address] Aug, [facility] [place] [facility] [address] [id number] [place] [address] Aug, [facility] [place] [facility] [address] [id number] [place] [address] Aug, [facility] [place] [facility] [address] [id number] [place] [address] Aug, [facility] [place] [facility] [address] [id number] [place] [address] Aug, [facility] [place] [facility] [address] [id number] [place] [address] Aug, [facility] [facility] [address] [id number] [place] [address] Aug, [facility] [place] [facility] [address] [id number] [place] [address] Aug, [facility] [place] [facility] [address] [id number] [place] [address] Aug, [facility] [place] [facility] [address] [id number] [place] [address] Aug, [facility] [place] [facility] [address] [id number] [place] [address] Aug, [facility] [place] [facility] [address] [id number] [place] [address] Aug, [facility] [place] [facility] [address] [id number] [place] [address] Jul, [facility] [place] [facility] [address] [id number] [place] [address] Jul, [facility] [place] [facility] [address] [id number] [place] [address] Feb, [facility] [place] [facility] [address] [id number] [place] [address] Feb, [facility] [place] [facility] [address] [id number] [place] [address] January, [facility] [place] [facility] [address] [id number] [place] [address] January, [facility] [place] [facility] [address] [id number] [place] [address] January, [facility] [place] [facility] [address] [id number] [place] [address] January, [facility] [place] [facility] [address] [id number] [place] [address] Nov, [facility] [place] [facility] [address] [id number] [place] [address] Nov, [facility] [place] [facility] [address] [id number] [place] [address] Nov, [facility] [place] [facility] [address] [id number] [place] [address] Nov, [facility] [place] [facility] [address] [id number] [place] [address] Oct, [facility] [place] [facility] [address] [id number] [place] [address] Oct, [facility] [place] [facility] [address] [id number] [place] [address] Sep, [facility] [place] [facility] [address] [id number] [place] [address] Sep, [facility] [place] [facility] [address] [id number] [place] [address] Sep, [facility] [place] [facility] [address] [id number] [place] [address] Sep, [facility] [place] [facility] [address] [id number] [place] [address] Aug, [facility] [place] [facility] [address] [id number] [place] [address] Aug, [facility] [place] [facility] [address] [id number] [place] [address] Aug, [facility] [place] [facility] [address] [facility] [id number] [place] [address] Aug, [facility] [place] [facility] [address] [id number] [place] [address] 05 Aug, 2013 [facility] [place] [facility] [address] [id number] [place] [address] Aug, [facility] [place] [facility] [address] [id number] [place] [address] Aug, [facility] [place] [facility] [address] [id number] [address] Jul, [facility] [facility] [address] [id number] [address] Jul, [facility] [facility] [address] [id number] [address] Jul, [facility] [address] [id number] [address] Jul, [facility] [facility] [address] [id number] [address] Jul, [facility] [place] [facility] [address] [id number], [place] [address] 12 Jul, 2013 [facility] [facility] [address] [id number][place] [address] 08 Jul, 2013 [facility] [address] [facility] [id number], [place] [address] 31 Jun, 2013 [facility] [place] [facility] [address] [id number][place] [address] 30 Jun, 2013 [facility] [id number] [address] 30 Jun, 2013 [facility] [id number] [address] 08 Jun, 2013 [facility] [id number] [address] Jul, [facility] [id number] [address] 16 Jul, 2010 [facility] [id number] [address] Jul, [facility] [id number] [place] [address] Jul, [facility] [id number] [address] Jun, [facility] [id number] [place] [address] Jun, [facility] [id number] [address] Jun, [facility] [id number] [place] [address] Jun, [facility] [id number] [address] Jun, [facility] [id number] [address] Mar, [facility] [id number] [address] January, IMMUNIZATIONS No Known Immunizations SOCIAL HISTORY Never Assessed REASON FOR VISIT PLAN OF CARE VITAL SIGNS Height 68 in 2014-11-08 Weight 170.7 lbs 2014-11-08 Temperature 97.2 degrees Fahrenheit 2014-11-08 Heart Rate 84 bpm 2014-11-08 Respiratory Rate 18 2014-11-08 Blood pressure systolic 122 mmHg 2014-11-08 Blood pressure diastolic 89 mmHg 2014-11-08 MEDICATIONS Unknown Medications RESULTS No Results PROCEDURES [...] child Hospitalization History low blood pressure--via [facility] 12/2017
--- OUTSIDE RECORDS SUMMARY | 2019-04-09 01:21 | XMS REPORT ---
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 Active 19190459 Problem Spinal stenosis of thoracolumbar region M48.05 Active 36288317 Problem Chronic headaches R51 Active 981424390 Problem Hypertension I10 Active 53305632 Problem GERD (gastroesophageal reflux disease) K21.9 Active 203365248 Problem Tobacco abuse Z72.0 Active 35725496 Problem Dyslipidemia E78.5 Active 641975526 Problem Acute right hip pain M25.551 Active 06630627 Problem Environmental allergies Z91.09 Active 741234257 Problem Primary insomnia F51.01 Active 3807628 Problem Chronic pain G89.29 Active 66542686 Problem Obsessive-compulsive disorder, unspecified type F42.9 Active 015083509 Problem Bipolar I disorder F31.9 Active 608729833 Problem Spondylosis of cervical region without myelopathy or radiculopathy M47.812 Active 835076122 Problem DDD (degenerative disc disease), thoracolumbar M51.35 Active 20431765 ALLERGIES No Information ENCOUNTERS Encounter Location Date Diagnosis [facility] [address] [place] [address] Feb, Chronic pain G89.29 [facility] [address] [place] [address] Feb, [facility] [address] [place] [address] January, GERD (gastroesophageal reflux disease) K21.9 ; Hypertension I10 ; Chronic pain G89.29 ; Dyslipidemia E78.5 ; Bipolar I disorder F31.9 ; 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 ; Primary insomnia F51.01 ; Encounter for screening for malignant neoplasm of colon Z12.11 and Screening for breast cancer Z12.31 [facility] [place] [address] [id number] [place] [id number] Dec, Depression F32.9 ; Hypertension I10 ; Dyslipidemia E78.5 and Chronic pain G89.29 [facility] [place] [address] [id number] [place] [id number] Dec, [facility] [place] [address] [id number] [place] [id number] Dec, Spinal stenosis of thoracolumbar region M48.05 ; DDD (degenerative disc disease), thoracolumbar M51.35 ; Spondylosis of cervical region without myelopathy or radiculopathy M47.812 ; Chronic pain G89.29 ; Acute right hip pain M25.551 and Depression F32.9 [facility] [place] [address] [id number] [place] [id number] Dec, Chronic pain G89.29 [facility] [place] [address] [id number] [place] [id number] Nov, [facility] [place] [address] [id number] [place] [address] Nov, Chronic pain G89.29 [facility] [place] [address] [id number] [place] [id number] Nov, [facility] [place] [address] [id number] [place] [address] Oct, [facility] [place] [address] [id number] [place] [address] Oct, Chronic pain G89.29 [facility] [place] [address] [id number] [place] [id number] Sep, Chronic pain G89.29 [facility] [place] [address] [id number] [place] [address] Sep, [facility] [place] [address] [id number] [place] [address] Sep, Otitis media H66.90 and URI (upper respiratory infection) J06.9 [facility] [place] [address] [id number] [place] [address] Aug, Chronic pain G89.29 [facility] [place] [address] [id number] [place] [id number] Aug, 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 [facility] [place] [address] [id number] [place] [address] Aug, Sinusitis J32.9 and Nausea R11.0 [facility] [place] [address] [id number] [place] [address] Aug, Chronic pain G89.29 ; Spondylosis of cervical region without myelopathy or radiculopathy M47.812 and DDD (degenerative disc disease), thoracolumbar M51.35 [facility] [place] [address] [id number] [place] [id number] Aug, Bipolar I disorder F31.9 [facility] [place] [address] [id number] [place] [address] Aug, Bipolar I disorder F31.9 and Obsessive-compulsive disorder, unspecified type F42.9 [facility] [place] [address] [id number] [place] [address] Jul, Chronic pain G89.29 [facility] [place] [address] [id number] [place] [id number] Jul, [facility] [place] [address] [id number] [place] [id number] Jul, Bipolar I disorder F31.9 and Obsessive-compulsive disorder, unspecified type F42.9 [facility] [place] [address] [id number] [place] [address] Jul, GERD (gastroesophageal reflux disease) K21.9 ; Hypertension I10 ; 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 ; Chronic pain G89.29 ; Dyslipidemia E78.5 ; Environmental allergies Z91.09 and Encounter for immunization Z23 [facility] [address] [id number] [place] [id number] Jun, Chronic pain G89.29 [facility] [address] [id number] [address] Jun, [facility] [facility] [address] [id number] [id number] Jun, [address] [place] [id number] Jun, Dyslipidemia E78.5 [address] [address] Jun, Chronic pain G89.29 [place] [id number] [place] [id number] May, [address] [place] [phone] May, Chronic pain G89.29 ; Tobacco abuse Z72.0 ; High risk medication use Z79.899 ; Dyslipidemia E78.5 ; Hepatitis C B19.20 ; Hypertension I10 ; Environmental allergies Z91.09 ; Anxiety F41.9 ; 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 and GERD (gastroesophageal reflux disease) K21.9 [place] [id number] [place] [id number] Apr, Chronic pain G89.29 [facility] [id number] [place] [address] Mar, Costochondral separation, initial encounter S23.29XA and Injury of toe on left foot, initial encounter S99.922A [place] [id number] [place] [id number] Mar, Chronic pain G89.29 [facility] [id number] [place] [address] Feb, Poison elda L23.7 [place] [id number] [place] [id number] Feb, Chronic pain G89.29 [facility] [id number] [place] [address] Feb, Bronchitis J40 [address] [place] [id number] Feb, [address] [address] Feb, Chronic pain G89.29 [place] [id number] [place] [id number] January, Vaginal discharge N89.8 ; Increased urinary frequency R35.0 ; Acute cystitis with hematuria N30.01 ; Other specified bacterial agents as the cause of diseases classified elsewhere B96.89 and Acute vaginitis N76.[address] [id number] January, Chronic pain G89.29 and Candidiasis B37.9 [facility] [address] [place] [address] January, [facility] [address] [place] [address] [place] [address] Dec, Acute frontal sinusitis, recurrence not specified J01.10 and Cough R05 [place] [id number] [place] [id number] Dec, [place] [id number] [place] [id number] Nov, [facility] [address] [place] [address] [place] [address] Nov, Bronchitis J40 [address] [id number] Nov, [facility] [id number] [place] [address] Oct, COPD with acute exacerbation J44.1 [address] [place] [id number] Oct, Chronic pain G89.29 [place] [id number] [place] [id number] Oct, [place] [address] [place] [id number] Sep, Chronic pain G89.29 ; Depression F32.9 ; Anxiety F41.9 ; 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 and Flu-like symptoms R68.89 [facility] [place] [employer]me[employer] [facility]ER[place] [id number] [place] [address] Aug, Chronic pain G89.29 ; Open bite of other finger without damage to nail, initial encounter S61.258A and Bitten by dog, initial encounter W54.0XXA [facility] [id number] [place] [address] Jul, Menopause Z78.0 ; Ankle swelling, unspecified laterality M25.473 ; Chronic pain G89.29 and Tobacco abuse Z72.0 [facility] [id number] [place] [address] Jun, [place] [id number] [place] [address] Jun, Chronic pain G89.29 [facility] [id number] [place] [phone] May, Dysuria R30.0 ; Dehydration E86.0 and Hypertension I10 [place] [id number] [place] [address] 19 May, 2017 Menopause Z78.0 ; Depression F32.9 ; Chronic pain G89.29 ; Environmental allergies Z91.09 ; 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 and Encounter for immunization Z23 [place] [id number] [place] [address] May, Chronic pain G89.29 [place] [id number] [place] [address] Apr, Chronic pain G89.29 [place] [facility] [id number] [place] [address] Apr, Routine gynecological examination Z01.419 [place] [id number] [place] [address] Mar, Chronic pain G89.29 [place] [address] [place] [address] Feb, [place] [id number] [place] [address] Feb, Chronic pain G89.29 [place] [id number] [place] [address] Feb, [place] [id number] [place] [address] January, Chronic pain G89.29 [place] [id number] [place] [address] January, Routine gynecological examination Z01.419 and Breast cancer screening Z12.39 [place] [id number] [place] [address] January, Chronic pain G89.29 [place] [id number] [place] [address] Dec, Postmenopausal HRT (hormone replacement therapy) Z79.890 [place] [id number] [place] [address] Dec, [place] [id number] [place] [address] Nov, Chronic pain G89.29 [place] [id number] [place] [address] Nov, Chronic headaches R51 ; GERD (gastroesophageal reflux disease) K21.9 ; Hypertension I10 ; 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 ; Hepatitis C B19.20 ; Chronic pain G89.29 ; Pain of right thumb M79.644 ; Insomnia G47.00 ; Depression F32.9 ; Environmental allergies Z91.09 and Closed fracture of tuft of distal phalanx of finger, with routine healing, subsequent encounter S62.639D [place] [id number] [place] [address] Nov, [address] [id number] [address] Nov, [facility] [id number] [place] [address] Nov, [facility] [id number] [place] [address] Nov, Hypertension I10 [facility] [address] [address] Nov, [facility] [id number] [place] [address] Nov, [facility] [id number] [place] [address] Oct, Anxiety F41.9 [facility] [id number] [place] [address] Oct, [facility] [id number] [place] [address] Oct, Acute upper respiratory infection, unspecified J06.9 and Other viral agents as the cause of diseases classified elsewhere B97.89 [facility] [id number] [place] [address] Oct, [facility] [id number] [place] [address] Oct, Right acute serous otitis media, recurrence not specified H65.01 and Pharyngitis, unspecified etiology J02.9 [facility] [id number] [place] [address] Sep, [facility] [id number] [place] [address] Aug, Environmental allergies Z91.09 [facility] [id number] [place] [address] Aug, [facility] [id number] [place] [address] 28 Jul, 2016 Atypical nevi D22.9 [facility] [address] [address] 15 Jul, 2016 [facility] [address] [address] 10 Jul, 2016 [facility] [address], [place] [address] 07 Jul, 2016 [facility] [address], [place] [address] Jun, [facility] [address] [place] [address] May, [facility] [address], [place] [address] May, [facility] [address] [address] May, [facility] [address], [place] [address] Apr, [facility] [address], [place] [address] Apr, Chronic headaches R51 ; GERD (gastroesophageal reflux disease) K21.9 ; Hypertension I10 ; 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 ; Anxiety F41.9 ; COPD with acute exacerbation J44.1 ; Environmental allergies Z91.09 ; Depression F32.9 and Chronic pain G89.29 [facility] [address], [place] [address] Feb, Chronic headaches R51 and Chronic pain G89.29 [facility] [address], [place] [address] January, Chronic pain G89.29 and Anxiety F41.9 [facility] [address], [place] [address] January, Depression F32.9 and Hypertension I10 [facility] [id number] [place] [address] January, Chronic pain G89.29 [facility] [address] [address] Dec, [facility] [id number] [place] [address] Dec, [facility] [address] [address] Dec, Chronic headaches R51 ; Chronic pain G89.29 ; Environmental allergies Z91.09 ; GERD (gastroesophageal reflux disease) K21.9 ; Insomnia G47.00 ; Hypertension I10 and COPD with acute exacerbation J44.1 [place] [address] [address] Dec, [place] [address] [address] Dec, Chest pain R07.9 ; GERD (gastroesophageal reflux disease) K21.9 and Nausea R11.0 [place] [id number] [place] [address] Nov, [place] [id number] [place] [address] Oct, COPD with acute exacerbation J44.1 ; Chronic headaches R51 ; GERD (gastroesophageal reflux disease) K21.9 ; Insomnia G47.00 ; Hypertension I10 ; Depression F32.9 and Anxiety F41.9 [place] [id number] [place] [address] Oct, [place] [address] [address] Oct, [place] [id number] [place] [address] Oct, [place] [address] [address] 17 Oct, [address] [address] 15 Oct, 2015 Flu-like symptoms R68.89 and COPD with acute exacerbation J44.[address] [address] 12 Oct, [address] [address] Oct, Left shoulder pain M25.512 ; Chronic headaches R51 ; Environmental allergies Z91.09 ; GERD (gastroesophageal reflux disease) K21.9 ; Insomnia G47.00 ; Hypertension I10 ; Depression F32.9 and 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 [address] Sep, [address] [address] Sep, COPD (chronic obstructive pulmonary disease) J44.[address] [address] Sep, Bronchitis J40 [address] [address] Aug, Cervicalgia 723.1 ; Chronic hepatitis C without mention of hepatic coma 070.54 ; Essential hypertension 401.9 ; Chronic headaches R51 ; Environmental allergies Z91.09 ; GERD (gastroesophageal reflux disease) K21.9 ; Insomnia G47.00 ; Depression F32.9 and COPD (chronic obstructive pulmonary disease) J44.[address] [address] Jul, Essential hypertension 401.9 ; Hypertension I10 ; Depression F32.9 ; Anxiety F41.9 ; Chronic headaches R51 and Cervicalgia M54.[address] [address] Jul, Essential hypertension 401.9 and Anxiety F41.9 [address] [place] [address] Jul, [address] [address] Jul, [place] [id number] [place] [address] Jul, Insomnia G47.00 ; GERD (gastroesophageal reflux disease) K21.9 ; Essential hypertension 401.9 ; Bipolar I disorder, most recent episode (or current) depressed, moderate 296.52 ; Hepatitis C B19.20 ; Depression F32.9 ; Hypertension I10 ; 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 ; Chronic headaches R51 and Chronic pain G89.29 [place] [id number] [place] [address] Jun, [address] [address] Jun, Chronic headaches R51 ; Environmental allergies Z91.09 ; GERD (gastroesophageal reflux disease) K21.9 ; Insomnia G47.00 ; Hepatitis C B19.20 ; Hypertension I10 ; Depression F32.9 ; 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 and Chronic pain G89.29 [place] [id number] [place] [address] Jun, [place] [id number] [place] [address] Jun, Vision changes H53.9 [place] [id number] [place] [address] Apr, [address] [address] Apr, Bipolar I disorder, most recent episode (or current) depressed, moderate 296.52 ; Other chronic pain 338.29 ; Chronic hepatitis C without mention of hepatic coma 070.54 ; Essential hypertension 401.9 ; Environmental allergies V15.09 and GERD (gastroesophageal reflux disease) 530.81 [facility] [address], [place] [address] Mar, [facility] [address], [place] [address] Mar, [facility] [address], [place] [address] Mar, [facility] [id number] [place] [address] Mar, [facility] [id number] [place] [address] Mar, [facility] [id number] [place] [address] Feb, Routine gynecological examination V72.31 ; Breast cancer screening V76.10 and Tobacco abuse 305.1 [facility] [address], [place] [address] Feb, [facility] [address], [place] [address] January, [facility] [address], [place] [address] January, [facility] [address], [place] [address] January, [facility] [address], [place] [address] January, [facility] [address], [place] [address] January, Mood disorder 296.90 and Anxiety 300.00 [facility] [address], [place] [address] January, [facility] [address], [place] [address] 30 Apr, 2015 Headache 784.0 ; Other chronic pain 338.29 and Cervicalgia 723.1 [facility] [address] [place] [address] 14 Dec, 2014 [facility] [address], [place] [address] 13 Dec, 2014 [facility] [address], [place] [address] 18 Nov, 2014 [facility] [address] [facility] [id number] [place] [address] 18 Nov, 2014 [facility] [address] [place] [address] Oct, [facility] [place] [facility] [id number] [place] [address] Oct, [facility] [address] [place] [address] Oct, [facility] [address], [place] [address] Oct, [facility] [address] [place] [address] Oct, [facility] [address], [place] [address] 20 Oct, 2014 [facility] [place] [facility] [address], [place] [address] Oct, [facility] [address], [place] [address] Oct, [facility] [place] [facility] [address], [place] [address] 18 Oct, 2014 [facility] [place] [facility] [address], [place] [address] 18 Oct, 2014 [facility] [place] [facility] [id number], [place] [address] Oct, [facility] [place] [facility] [address] [id number] [place] [address] 17 Oct, 2014 [facility] [place] [facility] [address] [id number] [place] [address] Sep, [facility] [place] [facility] [address] [id number] [place] [address] Sep, [facility] [place] [facility] [address] [id number] [place] [address] Sep, [facility] [place] [facility] [address] [id number] [place] [address] Sep, [facility] [place] [facility] [address] [id number] [place] [address] Sep, [facility] [place] [facility] [address] [id number] [place] [address] Sep, [facility] [place] [facility] [address] [id number] [place] [address] Sep, [facility] [place] [facility] [address] [id number] [place] [address] Sep, [facility] [place] [facility] [address] [id number] [place] [address] Sep, [facility] [place] [facility] [address] [id number], [place] [address] Sep, [facility] [place] [facility] [address] [id number], [place] [address] Sep, [facility] [place] [facility] [address] [id number] [place] [address] Sep, [facility] [place] [facility] [address] [id number], [place] [address] Sep, [facility] [place] [facility] [address] [id number] [place] [address] Sep, [facility] [place] [facility] [address] [id number] [place] [address] Aug, [facility] [place] [facility] [address] [id number] [place] [address] Aug, [facility] [place] [facility] [address] [id number] [place] [address] Aug, [facility] [place] [facility] [address] [id number] [place] [address] Aug, [facility] [place] [facility] [address] [id number] [place] [address] Aug, [facility] [place] [facility] [address] [id number] [place] [address] Aug, [facility] [place] [facility] [address] [id number] [place] [address] Aug, [facility] [place] [facility] [address] [id number] [place] [address] Aug, [facility] [place] [facility] [address] [id number] [place] [address] Aug, [facility] [place] [facility] [address] [id number] [place] [address] Aug, [facility] [place] [facility] [address] [id number] [place] [address] Aug, [facility] [place] [facility] [address] [id number] [place] [address] Aug, [facility] [place] [facility] [address] [id number] [place] [address] Aug, [facility] [place] [facility] [address] [id number] [place] [address] Jul, [facility] [place] [facility] [address] [id number] [place] [address] Jul, [facility] [place] [facility] [address] [id number] [place] [address] Feb, [facility] [place] [facility] [address] [id number] [place] [address] Feb, [facility] [place] [facility] [address] [id number] [place] [address] January, [facility] [place] [facility] [address] [id number] [place] [address] January, [facility] [place] [facility] [address] [id number] [place] [address] January, [facility] [place] [facility] [address] [id number] [place] [address] January, [facility] [place] [facility] [address] [id number] [place] [address] Nov, [facility] [place] [facility] [address] [id number] [place] [address] Nov, [facility] [place] [facility] [address] [id number] [place] [address] Nov, [facility] [place] [facility] [address] [id number] [place] [address] Nov, [facility] [place] [facility] [address] [id number] [place] [address] Oct, [facility] [place] [facility] [address] [id number] [place] [address] Oct, [facility] [place] [facility] [address] [id number] [place] [address] Sep, [facility] [place] [facility] [address] [id number] [place] [address] Sep, [facility] [place] [facility] [address] [id number] [place] [address] Sep, [facility] [place] [facility] [address] [id number] [place] [address] Sep, [facility] [place] [facility] [address] [id number], [place] [address] Aug, [facility] [address] [id number] [place] [address] Aug, [facility] [place] [facility] [address] [id number], [place] [address] Aug, [facility] [place] [facility] [address] [facility] [id number] [place] [address] Aug, [facility] [place] [facility] [address] [id number], [place] [address] 05 Aug, 2013 [facility] [place] [facility] [address] [id number] [place] [address] Aug, [facility] [place] [facility] [address] [id number] [place] [address] Aug, [facility] [address] [id number], [place] [address] Jul, [facility] [place] [facility] [address] [id number] [place] [address] Jul, [facility] [place] [facility] [address] [id number], [place] [address] Jul, [facility] [place] [facility] [address] [id number], [place] [address] Jul, [facility] [place] [facility] [address] [id number], [place] [address] Jul, [facility] [place] [facility] [address] [id number], [place] [address] Jul, [facility] [place] [facility] [address] [id number], [place] [address] 08 Jul, 2013 [facility] [place] [facility] [address] [id number], [place] [address] 31 Jun, 2013 [facility] [place] [facility] [address] [id number], [place] [address] 30 Jun, 2013 [facility] [place] [facility] [id number], [place] [address] 30 Jun, 2013 [facility] [id number], [place] [address] Jun, [facility] [id number], [place] [address] Jul, [facility] [id number], [place] [address] Jul, [facility] [id number], [place] [address] Jul, [facility] [id number] [place] [address] Jul, [facility] [id number], [place] [address] Jun, [facility] [id number] [place] [address] Jun, [facility] [id number], [place] [address] Jun, [facility] [id number], [place] [address] Jun, [facility] [id number], [place] [address] Jun, [facility] [id number], [place] [address] Mar, [facility] [id number], [place] [address] January, IMMUNIZATIONS No Known Immunizations SOCIAL HISTORY [...] History child Hospitalization History low blood pressure--via [facility] 12/2017
--- OUTSIDE RECORDS SUMMARY | 2019-04-09 01:21 | XMS REPORT ---
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 Active 27196682 Problem Spinal stenosis of thoracolumbar region M48.05 Active 76889306 Problem Chronic headaches R51 Active 078436118 Problem Hypertension I10 Active 34377090 Problem GERD (gastroesophageal reflux disease) K21.9 Active 266652089 Problem Tobacco abuse Z72.0 Active 56987667 Problem Dyslipidemia E78.5 Active 904974798 Problem Acute right hip pain M25.551 Active 34254851 Problem Environmental allergies Z91.09 Active 368331770 Problem Primary insomnia F51.01 Active 8123377 Problem Chronic pain G89.29 Active 95824724 Problem Obsessive-compulsive disorder, unspecified type F42.9 Active 993597859 Problem Bipolar I disorder F31.9 Active 877141857 Problem Spondylosis of cervical region without myelopathy or radiculopathy M47.812 Active 190599919 Problem DDD (degenerative disc disease), thoracolumbar M51.35 Active 00148545 ALLERGIES No Information ENCOUNTERS Encounter Location Date Diagnosis [facility] [address] [place] [address] Feb, Chronic pain G89.29 [facility] [address] [place] [address] Feb, [facility] [address] [place] [address] January, GERD (gastroesophageal reflux disease) K21.9 ; Hypertension I10 ; Chronic pain G89.29 ; Dyslipidemia E78.5 ; Bipolar I disorder F31.9 ; 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 ; Primary insomnia F51.01 ; Encounter for screening for malignant neoplasm of colon Z12.11 and Screening for breast cancer Z12.31 [facility] [place] [address] [id number] [place] [id number] Dec, Depression F32.9 ; Hypertension I10 ; Dyslipidemia E78.5 and Chronic pain G89.29 [facility] [place] [address] [id number] [place] [id number] Dec, [facility] [place] [address] [id number] [place] [address] Dec, Spinal stenosis of thoracolumbar region M48.05 ; DDD (degenerative disc disease), thoracolumbar M51.35 ; Spondylosis of cervical region without myelopathy or radiculopathy M47.812 ; Chronic pain G89.29 ; Acute right hip pain M25.551 and Depression F32.9 [facility] [place] [address] [id number] [place] [address] Dec, Chronic pain G89.29 [facility] [place] [address] [id number] [place] [id number] Nov, [facility] [place] [address] [id number] [place] [id number] Nov, Chronic pain G89.29 [facility] [place] [address] [id number] [place] [id number] Nov, [facility] [place] [address] [id number] [place] [id number] Oct, [facility] [place] [address] [id number] [place] [address] Oct, Chronic pain G89.29 [facility] [place] [address] [id number] [place] [id number] Sep, Chronic pain G89.29 [facility] [place] [address] [id number] [place] [id number] Sep, [facility] [place] [address] [id number] [place] [address] Sep, Otitis media H66.90 and URI (upper respiratory infection) J06.9 [facility] [place] [address] [id number] [place] [address] Aug, Chronic pain G89.29 [facility] [place] [address] [id number] [place] [address] Aug, 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 [facility] [place] [address] [id number] [place] [address] Aug, Sinusitis J32.9 and Nausea R11.0 [facility] [place] [address] [id number] [place] [id number] Aug, Chronic pain G89.29 ; Spondylosis of cervical region without myelopathy or radiculopathy M47.812 and DDD (degenerative disc disease), thoracolumbar M51.35 [facility] [place] [address] [id number] [place] [id number] Aug, Bipolar I disorder F31.9 [facility] [place] [address] [id number] [place] [id number] Aug, Bipolar I disorder F31.9 and Obsessive-compulsive disorder, unspecified type F42.9 [facility] [place] [address] [id number] [place] [id number] Jul, Chronic pain G89.29 [facility] [place] [address] [id number] [place] [address] Jul, [facility] [place] [address] [id number] [place] [address] Jul, Bipolar I disorder F31.9 and Obsessive-compulsive disorder, unspecified type F42.9 [facility] [place] [address] [id number] [place] [id number] Jul, GERD (gastroesophageal reflux disease) K21.9 ; Hypertension I10 ; 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 ; Chronic pain G89.29 ; Dyslipidemia E78.5 ; Environmental allergies Z91.09 and Encounter for immunization Z23 [facility] [address] [id number] [place] [address] Jun, Chronic pain G89.29 [facility] [address] [id number] [id number] Jun, [facility] [address] [id number] [id number] Jun, [address] [place] [id number] Jun, Dyslipidemia E78.5 [address] [address] Jun, Chronic pain G89.29 [place] [id number] [place] [id number] May, [address] [place] [id number] May, Chronic pain G89.29 ; Tobacco abuse Z72.0 ; High risk medication use Z79.899 ; Dyslipidemia E78.5 ; Hepatitis C B19.20 ; Hypertension I10 ; Environmental allergies Z91.09 ; Anxiety F41.9 ; 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 and GERD (gastroesophageal reflux disease) K21.9 [place] [id number] [place] [id number] Apr, Chronic pain G89.29 [facility] [id number] [place] [address] Mar, Costochondral separation, initial encounter S23.29XA and Injury of toe on left foot, initial encounter S99.922A [place] [id number] [place] [id number] Mar, Chronic pain G89.29 [facility] [id number] [place] [address] Feb, Poison elda L23.7 [place] [id number] [place] [id number] Feb, Chronic pain G89.29 [facility] [id number] [place] [address] Feb, Bronchitis J40 [address] [place] [id number] Feb, [address] [address] Feb, Chronic pain G89.29 [place] [id number] [place] [id number] January, Vaginal discharge N89.8 ; Increased urinary frequency R35.0 ; Acute cystitis with hematuria N30.01 ; Other specified bacterial agents as the cause of diseases classified elsewhere B96.89 and Acute vaginitis N76.[address] [id number] January, Chronic pain G89.29 and Candidiasis B37.9 [facility] [address] [place] [address] January, [facility] [address] [place] [id number] [place] [address] Dec, Acute frontal sinusitis, recurrence not specified J01.10 and Cough R05 [place] [id number] [place] [id number] Dec, [place] [id number] [place] [id number] Nov, [facility] [address] [place] [id number] [place] [address] Nov, Bronchitis J40 [address] [id number] Nov, [facility] [id number] [place] [address] Oct, COPD with acute exacerbation J44.[address] [place] [id number] Oct, Chronic pain G89.29 [place] [id number] [place] [id number] Oct, [place] [id number] [place] [id number] Sep, Chronic pain G89.29 ; Depression F32.9 ; Anxiety F41.9 ; 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 and Flu-like symptoms R68.89 [facility] [place] [id number] [place] [address] Aug, Chronic pain G89.29 ; Open bite of other finger without damage to nail, initial encounter S61.258A and Bitten by dog, initial encounter W54.0XXA [facility] [id number] [place] [address] Jul, Menopause Z78.0 ; Ankle swelling, unspecified laterality M25.473 ; Chronic pain G89.29 and Tobacco abuse Z72.0 [facility] [id number] [place] [address] Jun, [place] [id number] [place] [address] Jun, Chronic pain G89.29 [facility] [id number] [place] [address] May, Dysuria R30.0 ; Dehydration E86.0 and Hypertension I10 [place] [id number] [place] [address] 19 May, 2017 Menopause Z78.0 ; Depression F32.9 ; Chronic pain G89.29 ; Environmental allergies Z91.09 ; 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 and Encounter for immunization Z23 [place] [id number] [place] [address] May, Chronic pain G89.29 [place] [id number] [place] [address] Apr, Chronic pain G89.29 [place] [id number] [place] [address] Apr, Routine gynecological examination Z01.419 [place] [id number] [place] [address] Mar, Chronic pain G89.29 [place] [address] [place] [address] Feb, [place] [id number] [place] [address] Feb, Chronic pain G89.29 [place] [id number] [place] [address] Feb, [place] [id number] [place] [address] January, Chronic pain G89.29 [place] [id number] [place] [address] January, Routine gynecological examination Z01.419 and Breast cancer screening Z12.39 [place] [id number] [place] [address] January, Chronic pain G89.29 [place] [id number] [place] [address] Dec, Postmenopausal HRT (hormone replacement therapy) Z79.890 [place] [id number] [place] [address] Dec, [place] [id number] [place] [address] Nov, Chronic pain G89.29 [place] [id number] [place] [address] Nov, Chronic headaches R51 ; GERD (gastroesophageal reflux disease) K21.9 ; Hypertension I10 ; 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 ; Hepatitis C B19.20 ; Chronic pain G89.29 ; Pain of right thumb M79.644 ; Insomnia G47.00 ; Depression F32.9 ; Environmental allergies Z91.09 and Closed fracture of tuft of distal phalanx of finger, with routine healing, subsequent encounter S62.639D [place] [id number] [place] [address] Nov, [address] [id number] [address] Nov, [facility] [id number] [place] [address] Nov, [facility] [id number] [place] [address] Nov, Hypertension I10 [facility] [address] [address] Nov, [facility] [id number] [place] [address] Nov, [facility] [id number] [place] [address] Oct, Anxiety F41.9 [facility] [id number] [place] [address] Oct, [facility] [id number] [place] [address] Oct, Acute upper respiratory infection, unspecified J06.9 and Other viral agents as the cause of diseases classified elsewhere B97.89 [facility] [id number] [place] [address] Oct, [facility] [id number] [place] [address] Oct, Right acute serous otitis media, recurrence not specified H65.01 and Pharyngitis, unspecified etiology J02.9 [facility] [id number] [place] [address] Sep, [facility] [id number] [place] [address] Aug, Environmental allergies Z91.09 [facility] [id number] [place] [address] Aug, [facility] [id number] [place] [address] 28 Jul, 2016 Atypical nevi D22.9 [facility] [address] [address] 15 Jul, 2016 [facility] [address] [address] 10 Jul, 2016 [facility] [address] [address] 07 Jul, 2016 [facility] [address], [place] [address] Jun, [facility] [address] [place] [address] May, [facility] [address], [place] [address] May, [facility] [id number] [address] May, [facility] [address], [place] [address] Apr, [facility] [address], [place] [address] Apr, Chronic headaches R51 ; GERD (gastroesophageal reflux disease) K21.9 ; Hypertension I10 ; 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 ; Anxiety F41.9 ; COPD with acute exacerbation J44.1 ; Environmental allergies Z91.09 ; Depression F32.9 and Chronic pain G89.29 [facility] [address], [place] [address] Feb, Chronic headaches R51 and Chronic pain G89.29 [facility] [address], [place] [address] January, Chronic pain G89.29 and Anxiety F41.9 [facility] [address], [place] [address] January, Depression F32.9 and Hypertension I10 [facility] [id number] [place] [address] January, Chronic pain G89.29 [facility] [address] [address] Dec, [facility] [id number] [place] [address] Dec, [facility] [address] [address] Dec, Chronic headaches R51 ; Chronic pain G89.29 ; Environmental allergies Z91.09 ; GERD (gastroesophageal reflux disease) K21.9 ; Insomnia G47.00 ; Hypertension I10 and COPD with acute exacerbation J44.1 [place] [address] [address] Dec, [place] [address] [address] Dec, Chest pain R07.9 ; GERD (gastroesophageal reflux disease) K21.9 and Nausea R11.0 [place] [id number] [place] [address] Nov, [place] [id number] [place] [address] Oct, COPD with acute exacerbation J44.1 ; Chronic headaches R51 ; GERD (gastroesophageal reflux disease) K21.9 ; Insomnia G47.00 ; Hypertension I10 ; Depression F32.9 and Anxiety F41.9 [place] [id number] [place] [address] Oct, [place] [address] [address] Oct, [place] [id number] [place] [address] Oct, [place] [address] [address] 17 Oct, [address] [address] 15 Oct, 2015 Flu-like symptoms R68.89 and COPD with acute exacerbation J44.[address] [address] 12 Oct, [address] [address] Oct, Left shoulder pain M25.512 ; Chronic headaches R51 ; Environmental allergies Z91.09 ; GERD (gastroesophageal reflux disease) K21.9 ; Insomnia G47.00 ; Hypertension I10 ; Depression F32.9 and 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 [address] Sep, [address] [address] Sep, COPD (chronic obstructive pulmonary disease) J44.[address] [address] Sep, Bronchitis J40 [address] [address] Aug, Cervicalgia 723.1 ; Chronic hepatitis C without mention of hepatic coma 070.54 ; Essential hypertension 401.9 ; Chronic headaches R51 ; Environmental allergies Z91.09 ; GERD (gastroesophageal reflux disease) K21.9 ; Insomnia G47.00 ; Depression F32.9 and COPD (chronic obstructive pulmonary disease) J44.[address] [address] Jul, Essential hypertension 401.9 ; Hypertension I10 ; Depression F32.9 ; Anxiety F41.9 ; Chronic headaches R51 and Cervicalgia M54.[address] [address] Jul, Essential hypertension 401.9 and Anxiety F41.9 [address] [place] [address] Jul, [address] [address] Jul, [place] [id number] [place] [address] Jul, Insomnia G47.00 ; GERD (gastroesophageal reflux disease) K21.9 ; Essential hypertension 401.9 ; Bipolar I disorder, most recent episode (or current) depressed, moderate 296.52 ; Hepatitis C B19.20 ; Depression F32.9 ; Hypertension I10 ; 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 ; Chronic headaches R51 and Chronic pain G89.29 [place] [id number] [place] [address] Jun, [address] [address] Jun, Chronic headaches R51 ; Environmental allergies Z91.09 ; GERD (gastroesophageal reflux disease) K21.9 ; Insomnia G47.00 ; Hepatitis C B19.20 ; Hypertension I10 ; Depression F32.9 ; 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 and Chronic pain G89.29 [place] [id number] [place] [address] Jun, [place] [id number] [place] [address] Jun, Vision changes H53.9 [place] [id number] [place] [address] Apr, [address] [address] Apr, Bipolar I disorder, most recent episode (or current) depressed, moderate 296.52 ; Other chronic pain 338.29 ; Chronic hepatitis C without mention of hepatic coma 070.54 ; Essential hypertension 401.9 ; Environmental allergies V15.09 and GERD (gastroesophageal reflux disease) 530.81 [facility] [address], [place] [address] Mar, [facility] [address], [place] [address] Mar, [facility] [id number], [place] [address] Mar, [facility] [id number] [place] [address] Mar, [facility] [id number] [place] [address] Mar, [facility] [id number] [place] [address] Feb, Routine gynecological examination V72.31 ; Breast cancer screening V76.10 and Tobacco abuse 305.1 [facility] [id number], [place] [address] Feb, [facility] [address], [place] [address] January, [facility] [id number] [address] January, [facility] [address], [place] [address] January, [facility] [address], [place] [address] January, [facility] [address], [place] [address] January, Mood disorder 296.90 and Anxiety 300.00 [facility] [id number], [place] [address] January, [facility] [address], [place] [address] 30 Apr, 2015 Headache 784.0 ; Other chronic pain 338.29 and Cervicalgia 723.1 [facility] [address] [place] [address] 14 Dec, 2014 [facility] [address], [place] [address] 13 Dec, 2014 [facility] [address], [place] [address] 18 Nov, 2014 [facility] [address] [facility] [id number] [place] [address] 18 Nov, 2014 [facility] [address] [place] [address] Oct, [facility] [place] [facility] [id number] [place] [address] Oct, [facility] [address] [place] [address] Oct, [facility] [address], [place] [address] Oct, [facility] [address] [place] [address] Oct, [facility] [address], [place] [address] 20 Oct, 2014 [facility] [place] [facility] [address], [place] [address] Oct, [facility] [address], [place] [address] Oct, [facility] [place] [facility] [address], [place] [address] 18 Oct, 2014 [facility] [place] [facility] [address], [place] [address] 18 Oct, 2014 [facility] [place] [facility] [address], [place] [address] Oct, [facility] [place] [facility] [address] [id number] [place] [address] 17 Oct, 2014 [facility] [place] [facility] [address] [id number] [place] [address] Sep, [facility] [place] [facility] [address] [id number] [place] [address] Sep, [facility] [place] [facility] [address] [id number] [place] [address] Sep, [facility] [place] [facility] [address] [id number] [place] [address] Sep, [facility] [place] [facility] [address] [id number] [place] [address] Sep, [facility] [place] [facility] [address] [id number] [place] [address] Sep, [facility] [place] [facility] [address] [id number] [place] [address] Sep, [facility] [place] [facility] [address] [id number] [place] [address] Sep, [facility] [place] [facility] [address] [id number] [place] [address] Sep, [facility] [place] [facility] [address] [id number], [place] [address] Sep, [facility] [place] [facility] [address] [id number], [place] [address] Sep, [facility] [place] [facility] [address] [id number] [place] [address] Sep, [facility] [place] [facility] [address] [id number], [place] [address] Sep, [facility] [place] [facility] [address] [id number] [place] [address] Sep, [facility] [place] [facility] [address] [id number] [place] [address] Aug, [facility] [place] [facility] [address] [id number] [place] [address] Aug, [facility] [place] [facility] [address] [id number] [place] [address] Aug, [facility] [place] [facility] [address] [id number] [place] [address] Aug, [facility] [place] [facility] [address] [id number] [place] [address] Aug, [facility] [place] [facility] [address] [id number] [place] [address] Aug, [facility] [place] [facility] [address] [address] [id number] [place] [address] Aug, [facility] [place] [facility] [address] [id number] [place] [address] Aug, [facility] [place] [facility] [address] [id number] [place] [address] Aug, [facility] [place] [facility] [address] [id number] [place] [address] Aug, [facility] [place] [facility] [address] [id number] [place] [address] Aug, [facility] [place] [facility] [address] [id number] [place] [address] Aug, [facility] [place] [facility] [address] [id number] [place] [address] Aug, [facility] [place] [facility] [address] [id number] [place] [address] Jul, [facility] [place] [facility] [address] [id number] [place] [address] Jul, [facility] [place] [facility] [address] [id number] [place] [address] Feb, [facility] [place] [facility] [address] [id number] [place] [address] Feb, [facility] [place] [facility] [address] [id number] [place] [address] January, [facility] [place] [facility] [address] [id number] [place] [address] January, [facility] [place] [facility] [address] [id number] [place] [address] January, [facility] [place] [facility] [address] [id number] [place] [address] January, [facility] [place] [facility] [address] [id number] [place] [address] Nov, [facility] [place] [facility] [address] [id number] [place] [address] Nov, [facility] [place] [facility] [address] [id number] [place] [address] Nov, [facility] [place] [facility] [address] [id number] [place] [address] Nov, [facility] [place] [facility] [address] [id number] [place] [address] Oct, [facility] [place] [facility] [address] [id number] [place] [address] Oct, [facility] [place] [facility] [address] [id number] [place] [address] Sep, [facility] [place] [facility] [address] [id number] [place] [address] Sep, [facility] [place] [facility] [address] [id number] [place] [address] Sep, [facility] [place] [facility] [address] [id number] [place] [address] Sep, [facility] [place] [facility] [address] [id number], [place] [address] Aug, [facility] [address] [id number] [place] [address] Aug, [facility] [place] [facility] [address] [id number], [place] [address] Aug, [facility] [place] [facility] [address] [facility] [id number] [place] [address] Aug, [facility] [place] [facility] [address] [id number][place] [address] 05 Aug, 2013 [facility] [place] [facility] [address] [id number] [place] [address] Aug, [facility] [place] [facility] [address] [id number] [place] [address] Aug, [facility] [address] [id number], [place] [address] Jul, [facility] [place] [facility] [address] [id number] [place] [address] Jul, [facility] [place] [facility] [address] [id number], [place] [address] Jul, [facility] [place] [facility] [address] [id number][place] [address] Jul, [facility] [place] [facility] [address] [id number], [place] [address] Jul, [facility] [place] [facility] [address] [id number], [place] [address] Jul, [facility] [place] [facility] [address] [id number], [place] [address] 08 Jul, 2013 [facility] [place] [facility] [address] [id number], [place] [address] 31 Jun, 2013 [facility] [place] [facility] [address] [id number], [place] [address] 30 Jun, 2013 [facility] [place] [facility] [id number], [place] [address] 30 Jun, 2013 [facility] [id number], [place] [address] Jun, [facility] [id number], [place] [address] Jul, [facility] [id number], [place] [address] Jul, [facility] [id number], [place] [address] Jul, [facility] [id number] [place] [address] Jul, [facility] [id number], [place] [address] Jun, [facility] [id number] [place] [address] Jun, [facility] [id number], [place] [address] Jun, [facility] [id number], [place] [address] Jun, [facility] [id number], [place] [address] Jun, [facility] [id number], [place] [address] Mar, [facility] [address] [id number] [address] January, IMMUNIZATIONS No Known Immunizations SOCIAL HISTORY [...] History child Hospitalization History low blood pressure--via [facility] 12/2017
--- OUTSIDE RECORDS SUMMARY | 2019-04-09 01:22 | XMS REPORT ---
Author Author Migration, Doctor Organization [facility] Address Unknown Phone Unavailable Care Team Providers Care Composition Board Press Operator Name Role Phone Migration, Doctor Unavailable Unavailable PROBLEMS Type Condition ICD9-CM Code [id number] Code Onset Dates Condition Status SNOMED Code Problem Spinal stenosis of thoracolumbar region M48.05 Active 80245426 Problem Other idiopathic scoliosis, thoracolumbar region M41.25 Active 292460519 Problem Chronic pain G89.29 Active 17929828 Problem 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 Active 92926034 Problem Hypertension I10 Active 76481992 Problem Chronic headaches R51 Active 227609201 Problem Dyslipidemia E78.5 Active 944245154 Problem DDD (degenerative disc disease), thoracolumbar M51.35 Active 32253685 Problem GERD (gastroesophageal reflux disease) K21.9 Active 204038596 Problem Acute right hip pain M25.551 Active 67357467 Problem Environmental allergies Z91.09 Active 376706207 Problem Tobacco abuse Z72.0 Active 13936820 Problem Obsessive-compulsive disorder, unspecified type F42.9 Active 515290230 Problem Bipolar I disorder F31.9 Active 232197167 Problem Spondylosis of cervical region without myelopathy or radiculopathy M47.812 Active 130683071 ALLERGIES No Information ENCOUNTERS Encounter Location Date Diagnosis [facility] [place] [address] [id number] [id number] Dec, Depression F32.9 ; Hypertension I10 ; Dyslipidemia E78.5 and Chronic pain G89.29 [facility] [place] [address] [id number] [id number] Dec, [facility] [place] [address] [id number] [id number] Dec, Spinal stenosis of thoracolumbar region M48.05 ; DDD (degenerative disc disease), thoracolumbar M51.35 ; Spondylosis of cervical region without myelopathy or radiculopathy M47.812 ; Chronic pain G89.29 ; Acute right hip pain M25.551 and Depression F32.9 [facility] [place] [address] [id number] [place] [id number] Dec, Chronic pain G89.29 [facility] [place] [address] [id number] [place] [id number] Nov, [facility] [place] [address] [id number] [place] [id number] Nov, Chronic pain G89.29 [facility] [place] [address] [id number] [place] [id number] Nov, [facility] [place] [address] [id number] [place] [id number] Oct, [facility] [place] [address] [id number] [place] [id number] Oct, Chronic pain G89.29 [facility] [place] [address] [id number] [place] [id number] Sep, Chronic pain G89.29 [facility] [place] [address] [id number] [place] [id number] Sep, [facility] [place] [address] [id number] [place] [id number] Sep, Otitis media H66.90 and URI (upper respiratory infection) J06.9 [facility] [place] [address] [id number] [place] [id number] Aug, Chronic pain G89.29 [facility] [place] [address] [id number] [place] [id number] Aug, 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 [facility] [place] [address] [id number] [place] [id number] Aug, Sinusitis J32.9 and Nausea R11.0 [facility] [place] [address] [id number] [place] [id number] Aug, Chronic pain G89.29 ; Spondylosis of cervical region without myelopathy or radiculopathy M47.812 and DDD (degenerative disc disease), thoracolumbar M51.35 [facility] [place] [address] [id number] [place] [id number] Aug, Bipolar I disorder F31.9 [facility] [place] [address] [facility] [address] [id number] [place] [id number] Aug, Bipolar I disorder F31.9 and Obsessive-compulsive disorder, unspecified type F42.9 [facility] [place] [address] [facility] [address] [id number] [place] [id number] Jul, Chronic pain G89.29 [facility] [place] [address] [id number] [place] [id number] Jul, [facility] [place] [address] [facility] [id number] [place] [id number] Jul, Bipolar I disorder F31.9 and Obsessive-compulsive disorder, unspecified type F42.9 [facility] [place] [id number] [place] [id number] Jul, GERD (gastroesophageal reflux disease) K21.9 ; Hypertension I10 ; 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 ; Chronic pain G89.29 ; Dyslipidemia E78.5 ; Environmental allergies Z91.09 and Encounter for immunization Z23 [facility] [address] [id number] Jun, Chronic pain G89.29 [facility] [id number] [place] [id number] Jun, [facility] [address] [id number] [id number] Jun, [facility] [address] [id number] [id number] Jun, Dyslipidemia E78.5 [facility] [address] [place] [id number] Jun, Chronic pain G89.29 [facility] [id number] [place] [address] [id number] May, [facility] [id number] [place] [id number] May, Chronic pain G89.29 ; Tobacco abuse Z72.0 ; High risk medication use Z79.899 ; Dyslipidemia E78.5 ; Hepatitis C B19.20 ; Hypertension I10 ; Environmental allergies Z91.09 ; Anxiety F41.9 ; 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 and GERD (gastroesophageal reflux disease) K21.[address] [id number] Apr, Chronic pain G89.29 [facility] [place] [address] [address] Mar, Costochondral separation, initial encounter S23.29XA and Injury of toe on left foot, initial encounter S99.922A [facility] [address] [id number] Mar, Chronic pain G89.29 [address] [address] Feb, Poison elda L23.[address] [id number] Feb, Chronic pain G89.29 [address] [address] Feb, Bronchitis J40 [address] [id number] Feb, [address] [id number] Feb, Chronic pain G89.[address] [id number] January, Vaginal discharge N89.8 ; Increased urinary frequency R35.0 ; Acute cystitis with hematuria N30.01 ; Other specified bacterial agents as the cause of diseases classified elsewhere B96.89 and Acute vaginitis N76.0 [id number] [place] [id number] January, Chronic pain G89.29 and Candidiasis B37.9 [facility] [place] [address] [address] January, [facility] [address] [address] Dec, Acute frontal sinusitis, recurrence not specified J01.10 and Cough R05 [facility] [address] [place] [address] [id number] Dec, [id number] [place] [id number] Nov, [facility] [place] [id number] [place] [address] Nov, Bronchitis J40 [address] [id number] [id number] Nov, [facility] [address] [place], [place] [id number] [place] [address] Oct, COPD with acute exacerbation J44.1 [id number] [place] [address] [id number] Oct, Chronic pain G89.29 [id number] [place] [address] [id number] Oct, [id number] [place] [address] [id number] Sep, Chronic pain G89.29 ; Depression F32.9 ; Anxiety F41.9 ; 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 and Flu-like symptoms R68.89 [facility] [address] [id number] [place] [address] Aug, Chronic pain G89.29 ; Open bite of other finger without damage to nail, initial encounter S61.258A and Bitten by dog, initial encounter W54.0XXA [facility] [place] [address] [place] [id number] [place] [address] Jul, Menopause Z78.0 ; Ankle swelling, unspecified laterality M25.473 ; Chronic pain G89.29 and Tobacco abuse Z72.0 [facility] [address] [place] [address] Jun, [address] [address] Jun, Chronic pain G89.29 [facility] [id number] [place] [address] 25 May, 2017 Dysuria R30.0 ; Dehydration E86.0 and Hypertension I10 [facility] [place] [id number] [place] [address] 19 May, 2017 Menopause Z78.0 ; Depression F32.9 ; Chronic pain G89.29 ; Environmental allergies Z91.09 ; 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 and Encounter for immunization Z23 [facility] [place] [address] [address] 18 May, 2017 Chronic pain G89.29 [facility] [place] [id number] [place] [address] Apr, Chronic pain G89.29 [facility] [place] [address] [address] Apr, Routine gynecological examination Z01.419 [facility] [place] [id number] [place] [address] Mar, Chronic pain G89.29 [facility] [place] [address] [address] Feb, [facility] [place] [id number] [place] [address] Feb, Chronic pain G89.29 [facility] [place] [id number] [place] [address] Feb, [facility] [place] [id number] [place] [address] January, Chronic pain G89.29 [facility] [place] [id number] [place] [address] January, Routine gynecological examination Z01.419 and Breast cancer screening Z12.39 [facility] [place] [address] [address] January, Chronic pain G89.29 [facility] [place] [id number] [place] [address] Dec, Postmenopausal HRT (hormone replacement therapy) Z79.890 [facility] [place] [id number] [place] [address] Dec, [facility] [place] [address] [address] Nov, Chronic pain G89.29 [facility] [place] [address] [address] Nov, Chronic headaches R51 ; GERD (gastroesophageal reflux disease) K21.9 ; Hypertension I10 ; 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 ; Hepatitis C B19.20 ; Chronic pain G89.29 ; Pain of right thumb M79.644 ; Insomnia G47.00 ; Depression F32.9 ; Environmental allergies Z91.09 and Closed fracture of tuft of distal phalanx of finger, with routine healing, subsequent encounter S62.639D [id number] [place] [address] Nov, [id number] [place] [address] Nov, [id number] [place] [address] Nov, [id number] [place] [address] Nov, Hypertension I10 [facility] [place] [id number] [place] [address] Nov, [address] [address] Nov, [facility] [place] [id number] [place] [address] Oct, Anxiety F41.9 [address] [id number] [address] Oct, [facility] [place] [id number] [place] [address] Oct, Acute upper respiratory infection, unspecified J06.9 and Other viral agents as the cause of diseases classified elsewhere B97.89 [facility] [place] [id number] [place] [address] Oct, [facility] [place] [id number] [place] [address] Oct, Right acute serous otitis media, recurrence not specified H65.01 and Pharyngitis, unspecified etiology J02.9 [facility] [place] [id number] [place] [address] Sep, [facility] [place] [id number] [place] [address] Aug, Environmental allergies Z91.09 [facility] [place] [id number] [place] [address] Aug, [facility] [place] [id number] [place] [phone] Jul, Atypical nevi D22.9 [facility] [place] [id number] [place] [address] Jul, [facility] [place] [address] [place] [address] Jul, [facility] [place] [id number] [place] [address] Jul, [facility] [place] [id number] [place] [address] Jun, [facility] [place] [id number] [place] [address] May, [facility] [place] [id number] [place] [address] May, [facility] [place] [id number] [place] [address] May, [facility] [place] [id number] [place] [address] Apr, [id number] [place] [address] Apr, Chronic headaches R51 ; GERD (gastroesophageal reflux disease) K21.9 ; Hypertension I10 ; 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 ; Anxiety F41.9 ; COPD with acute exacerbation J44.1 ; Environmental allergies Z91.09 ; Depression F32.9 and Chronic pain G89.29 [id number] [place] [address] Feb, Chronic headaches R51 and Chronic pain G89.29 [address] [address] [address] January, Chronic pain G89.29 and Anxiety F41.9 [address] [id number] [place] [address] January, Depression F32.9 and Hypertension I10 [id number] [place] [address] January, Chronic pain G89.29 [id number] [place] [address] Dec, [id number] [place] [address] Dec, [id number] [place] [address] Dec, Chronic headaches R51 ; Chronic pain G89.29 ; Environmental allergies Z91.09 ; GERD (gastroesophageal reflux disease) K21.9 ; Insomnia G47.00 ; Hypertension I10 and COPD with acute exacerbation J44.1 [address] [address] [place] [address] 14 Dec, 2015 [address] [address] [address] 06 Dec, 2015 Chest pain R07.9 ; GERD (gastroesophageal reflux disease) K21.9 and Nausea R11.0 [place] [address] [address] Nov, [place] [address] [address] 24 Oct, 2015 COPD with acute exacerbation J44.1 ; Chronic headaches R51 ; GERD (gastroesophageal reflux disease) K21.9 ; Insomnia G47.00 ; Hypertension I10 ; Depression F32.9 and Anxiety F41.[address] [address] Oct, [address] [address] Oct, [address] [address] Oct, [address] [address] Oct, [id number] [place] [address] 15 Oct, 2015 Flu-like symptoms R68.89 and COPD with acute exacerbation J44.1 [place] [address] [address] 12 Oct, [address] [address] 11 Oct, 2015 Left shoulder pain M25.512 ; Chronic headaches R51 ; Environmental allergies Z91.09 ; GERD (gastroesophageal reflux disease) K21.9 ; Insomnia G47.00 ; Hypertension I10 ; Depression F32.9 and 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 [place] [address] [address] Sep, [address] [address] Sep, COPD (chronic obstructive pulmonary disease) J44.9 [place] [address] [address] Sep, Bronchitis J40 [address] [address] Aug, Cervicalgia 723.1 ; Chronic hepatitis C without mention of hepatic coma 070.54 ; Essential hypertension 401.9 ; Chronic headaches R51 ; Environmental allergies Z91.09 ; GERD (gastroesophageal reflux disease) K21.9 ; Insomnia G47.00 ; Depression F32.9 and COPD (chronic obstructive pulmonary disease) J44.[address] [address] Jul, Essential hypertension 401.9 ; Hypertension I10 ; Depression F32.9 ; Anxiety F41.9 ; Chronic headaches R51 and Cervicalgia M54.[address] [address] Jul, Essential hypertension 401.9 and Anxiety F41.[address] [address] Jul, [address] [address] Jul, [address] [address] Jul, Insomnia G47.00 ; GERD (gastroesophageal reflux disease) K21.9 ; Essential hypertension 401.9 ; Bipolar I disorder, most recent episode (or current) depressed, moderate 296.52 ; Hepatitis C B19.20 ; Depression F32.9 ; Hypertension I10 ; 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 ; Chronic headaches R51 and Chronic pain G89.29 [address] [place] [address] Jun, [address] [address] Jun, Chronic headaches R51 ; Environmental allergies Z91.09 ; GERD (gastroesophageal reflux disease) K21.9 ; Insomnia G47.00 ; Hepatitis C B19.20 ; Hypertension I10 ; Depression F32.9 ; 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 and Chronic pain G89.[address] [address] Jun, [address] [address] Jun, Vision changes H53.[address] [address] Apr, [address] [address] Apr, Bipolar I disorder, most recent episode (or current) depressed, moderate 296.52 ; Other chronic pain 338.29 ; Chronic hepatitis C without mention of hepatic coma 070.54 ; Essential hypertension 401.9 ; Environmental allergies V15.09 and GERD (gastroesophageal reflux disease) 530.81 [place] [id number] [place] [address] Mar, [place] [id number] [place] [address] Mar, [place] [id number] [place] [address] Mar, [address] [address] Mar, [facility] [place] [id number] [place] [address] Mar, [address] [address] Feb, Routine gynecological examination V72.31 ; Breast cancer screening V76.10 and Tobacco abuse 305.1 [facility] [place] [address] [id number] [address] Feb, [facility] [address] [id number] [address] January, [facility] [id number] [place] [address] January, [facility] [id number] [place] [address] January, [facility] [place] [id number] [place] [address] January, [facility] [id number] [place] [address] January, Mood disorder 296.90 and Anxiety 300.00 [facility] [id number] [place] [address] January, [facility] [place] [id number] [place] [address] Dec, Headache 784.0 ; Other chronic pain 338.29 and Cervicalgia 723.1 [facility] [place] [address] [address] Dec, [facility] [address] [address] Dec, [facility] [place] [id number] [address] Nov, [facility] [place] [id number] [place] [id number] Nov, [facility] [place] [id number] [address] Oct, [facility] [place] [id number] [place] [id number] Oct, 2014 [facility] [place] [facility] [address] [id number] [place] [address] Oct, [facility] [place] [facility] [address] [facility] [id number] [place] [address] Oct, 2014 [facility] [place] [facility] [address] [facility] [id number] [place] [address] Oct, 2014 [facility] [place] [facility] [address] [facility] [id number] [place] [address] Oct, 2014 [facility] [place] [facility] [address] [facility] [id number] [place] [address] Oct, [facility] [place] [facility] [address] [facility] [id number] [place] [address] Oct, 2014 [facility] [place] [facility] [id number] [place] [address] Oct, 2014 [facility] [place] [facility] [address] [facility] [id number] [place] [address] Oct, [facility] [place] [facility] [address] [facility] [id number] [place] [address] Oct, [facility] [place] [facility] [address] [facility] [id number] [place] [address] Oct, [facility] [place] [facility] [address] [facility] [id number] [place] [address] Sep, [facility] [place] [facility] [address] [facility] [id number] [address] Sep, [facility] [place] [facility] [address] [facility] [id number] [address] Sep, [facility] [place] [facility] [address] [facility] [id number] [address] Sep, [facility] [place] [facility] [address] [facility] [id number] [address] Sep, [facility] [place] [facility] [address] [id number] [place] [address] Sep, [facility] [place] [facility] [address] [id number] [place] [address] Sep, [facility] [place] [facility] [address] [id number] [place] [address] Sep, [facility] [place] [facility] [address] [id number] [place] [address] Sep, [facility] [place] [facility] [address] [id number] [place] [address] Sep, [facility] [place] [facility] [address] [id number] [place] [address] Sep, [facility] [place] [facility] [address] [id number] [place] [address] Sep, [facility] [place] [facility] [address] [id number] [place] [address] Sep, [facility] [place] [facility] [address] [id number] [place] [address] Sep, [facility] [place] [facility] [address] [id number] [place] [address] Aug, [facility] [place] [facility] [address] [id number] [place] [address] Aug, [facility] [place] [facility] [address] [id number] [place] [address] Aug, [facility] [place] [facility] [address] [id number] [place] [address] Aug, [facility] [place] [facility] [address] [id number] [place] [address] Aug, [facility] [place] [facility] [address] [id number] [place] [address] Aug, [facility] [place] [facility] [address] [id number] [place] [address] Aug, [facility] [place] [facility] [address] [id number] [place] [address] Aug, [facility] [place] [facility] [address] [id number] [place] [address] Aug, [facility] [place] [facility] [address] [id number] [place] [address] Aug, [facility] [place] [facility] [address] [id number] [place] [address] Aug, [facility] [place] [facility] [address] [id number] [place] [address] Aug, [facility] [place] [facility] [address] [id number] [place] [address] Aug, [facility] [place] [facility] [address] [id number] [place] [address] Jul, [facility] [place] [facility] [address] [id number] [place] [address] Jul, [facility] [place] [facility] [address] [id number] [place] [address] Feb, [facility] [place] [facility] [address] [id number] [place] [address] Feb, [facility] [place] [facility] [address] [id number] [place] [address] January, [facility] [place] [facility] [address] [id number] [place] [address] January, [facility] [place] [facility] [address] [id number] [place] [address] January, [facility] [place] [facility] [address] [id number] [place] [address] January, [facility] [place] [facility] [address] [id number] [place] [address] Nov, [facility] [place] [facility] [address] [id number] [place] [address] 24 Nov, 2013 [facility] [address] [id number] [place] [address] Nov, [facility] [place] [facility] [address] [id number] [place] [address] Nov, [facility] [address] [id number] [place] [address] Oct, [facility] [place] [facility] [address] [id number] [place] [address] Oct, [facility] [address] [id number] [place] [address] Sep, [facility] [address] [id number] [place] [address] Sep, [facility] [address] [id number] [place] [address] Sep, [facility] [address] [id number] [place] [address] Sep, [facility] [address] [id number] [place] [address] Aug, [facility] [address] [id number] [place] [address] Aug, [facility] [place] [facility] [address] [id number] [place] [address] Aug, [facility] [place] [facility] [address] [id number] [place] [address] Aug, [facility] [place] [facility] [address] [id number] [place] [address] 05 Aug, 2013 [facility] [place] [facility] [address] [id number] [place] [address] Aug, [facility] [place] [facility] [address] [id number] [place] [address] Aug, [facility] [place] [facility] [address] [id number] [place] [address] Jul, [facility] [place] [facility] [address] [id number] [place] [address] Jul, [facility] [place] [facility] [address] [id number] [place] [address] Jul, [facility] [place] [facility] [address] [id number] [place] [address] Jul, [facility] [place] [facility] [address] [id number] [place] [address] Jul, [facility] [place] [facility] [address] [id number] [place] [address] Jul, [facility] [place] [facility] [address] [id number] [place] [address] Jul, [facility] [place] [facility] [address] [id number] [address] Jun, [facility] [place] [facility] [address] [id number] [place] [address] Jun, [facility] [place] [facility] [address] [id number], [place] [address] Jun, [facility] [place] [facility] [address] [id number], [place] [address] Jun, [facility] [place] [facility] [address] [id number], [place] [address] Jul, [facility] [place] [facility] [address] [id number], [place] [address] 16 Jul, 2010 [facility] [place] [facility] [address] [id number], [place] [address] Jul, [facility] [place] [facility] [address] [facility] [id number][place] [address] Jul, [facility] [place] [facility] [address] [id number], [place] [address] Jun, [facility] [place] [address] [facility] [id number], [place] [address] Jun, [facility] [place] [address] [facility] [id number], [place] [address] Jun, [facility] [place] [address] [facility] [id number], [place] [address] Jun, [facility] [place] [address] [id number], [place] [address] Jun, [facility] [place] [address] [facility] [id number], [place] [address] Mar, [facility] [place] [address] [facility] [id number], [place] [address] January, IMMUNIZATIONS No Known Immunizations SOCIAL HISTORY Never Assessed REASON FOR VISIT EMR-[facility] [place] PLAN OF CARE VITAL SIGNS MEDICATIONS Unknown [...] History child Hospitalization History low blood pressure--via [facility] 12/2017
--- OUTSIDE RECORDS SUMMARY | 2019-04-09 01:23 | XMS REPORT ---
Author Author Migration, Doctor [facility] Address Unknown Phone Unavailable Care Team Providers Care Blood Collector Name Role Phone Migration, Doctor Unavailable Unavailable PROBLEMS Type Condition ICD9-CM Code QDM00-XK Code Onset Dates Condition Status SNOMED Code Problem Spinal stenosis of thoracolumbar region M48.05 Active 05293380 Problem Other idiopathic scoliosis, thoracolumbar region M41.25 Active 322190468 Problem Chronic pain G89.29 Active 36799535 Problem 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 Active 34299987 Problem Hypertension I10 Active 12496948 Problem Chronic headaches R51 Active 277391911 Problem Dyslipidemia E78.5 Active 057697586 Problem DDD (degenerative disc disease), thoracolumbar M51.35 Active 48427177 Problem GERD (gastroesophageal reflux disease) K21.9 Active 451136939 Problem Acute right hip pain M25.551 Active 18053758 Problem Environmental allergies Z91.09 Active 533373179 Problem Tobacco abuse Z72.0 Active 52103168 Problem Obsessive-compulsive disorder, unspecified type F42.9 Active 320634007 Problem Bipolar I disorder F31.9 Active 551213307 Problem Spondylosis of cervical region without myelopathy or radiculopathy M47.812 Active 828813400 ALLERGIES No Information ENCOUNTERS Encounter Location Date Diagnosis [facility] [place] [id number] [place] [id number] Dec, Spinal stenosis of thoracolumbar region M48.05 ; DDD (degenerative disc disease), thoracolumbar M51.35 ; Spondylosis of cervical region without myelopathy or radiculopathy M47.812 ; Chronic pain G89.29 ; Acute right hip pain M25.551 and Depression F32.9 [facility] [place] [address] [facility] [id number] [id number] Dec, Chronic pain G89.29 [facility] [place] [address] [id number] [place] [id number] Nov, [facility] [place] [address] [id number] [place] [address] Nov, Chronic pain G89.29 [facility] [place] [address] [id number] [place] [address] Nov, [facility] [place] [address] [id number] [place] [id number] Oct, [facility] [place] [address] [id number] [place] [address] Oct, Chronic pain G89.29 [facility] [place] [address] [id number] [place] [id number] Sep, Chronic pain G89.29 [facility] [place] [address] [id number] [place] [address] Sep, [facility] [place] [address] [id number] [place] [address] Sep, Otitis media H66.90 and URI (upper respiratory infection) J06.9 [facility] [place] [address] [id number] [place] [address] Aug, Chronic pain G89.29 [facility] [place] [address] [id number] [place] [id number] Aug, 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 [facility] [place] [address] [id number] [place] [id number] Aug, Sinusitis J32.9 and Nausea R11.0 [facility] [place] [address] [id number] [place] [address] Aug, Chronic pain G89.29 ; Spondylosis of cervical region without myelopathy or radiculopathy M47.812 and DDD (degenerative disc disease), thoracolumbar M51.35 [facility] [place] [address] [id number] [place] [id number] Aug, Bipolar I disorder F31.9 [facility] [place] [address] [id number] [place] [address] Aug, Bipolar I disorder F31.9 and Obsessive-compulsive disorder, unspecified type F42.9 [facility] [place] [address] [id number] [place] [id number] Jul, Chronic pain G89.29 [facility] [place] [address] [id number] [place] [id number] Jul, [facility] [place] [id number] [place] [address] Jul, Bipolar I disorder F31.9 and Obsessive-compulsive disorder, unspecified type F42.9 [facility] [place] [id number] [place] [id number] Jul, GERD (gastroesophageal reflux disease) K21.9 ; Hypertension I10 ; 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 ; Chronic pain G89.29 ; Dyslipidemia E78.5 ; Environmental allergies Z91.09 and Encounter for immunization Z23 [address]005[address] [id number] Jun, Chronic pain G89.29 [address]005[address]100[place] [address] Jun, [id number] [address] Jun, [address]005[address]100[place] [address] Jun, Dyslipidemia E78.5 [address]005[address]100[place] [address] Jun, Chronic pain G89.29 [address]005[address]100[place] [address] May, [address]005[address] [address] May, Chronic pain G89.29 ; Tobacco abuse Z72.0 ; High risk medication use Z79.899 ; Dyslipidemia E78.5 ; Hepatitis C B19.20 ; Hypertension I10 ; Environmental allergies Z91.09 ; Anxiety F41.9 ; 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 and GERD (gastroesophageal reflux disease) K21.9 [facility] [address] [id number] [address] Apr, Chronic pain G89.29 [facility] [address] [address] Mar, Costochondral separation, initial encounter S23.29XA and Injury of toe on left foot, initial encounter S99.922A [address] [id number] Mar, Chronic pain G89.29 [facility] [address] [address] Feb, Poison elda L23.[address] [id number] Feb, Chronic pain G89.29 [place] [address] [address] Feb, Bronchitis J40 [address] [id number] Feb, [address] [id number] Feb, Chronic pain G89.[address] [id number] January, Vaginal discharge N89.8 ; Increased urinary frequency R35.0 ; Acute cystitis with hematuria N30.01 ; Other specified bacterial agents as the cause of diseases classified elsewhere B96.89 and Acute vaginitis N76.[address] [id number] January, Chronic pain G89.29 and Candidiasis B37.9 [facility] [address] [address] January, [facility] [address] [address] Dec, Acute frontal sinusitis, recurrence not specified J01.10 and Cough R05 [address] [id number] Dec, [address] [id number] Nov, [place] [address]00565100[place], [place] [address] Nov, Bronchitis J40 [facility] [address] [id number] [place] [address] Nov, [facility] [id number] [place] [address] Oct, COPD with acute exacerbation J44.1 [facility] [id number] [place] [id number] Oct, Chronic pain G89.29 [facility] [id number] [place] [id number] Oct, [facility] [id number] [place] [id number] Sep, Chronic pain G89.29 ; Depression F32.9 ; Anxiety F41.9 ; 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 and Flu-like symptoms R68.89 [facility] Amezquita [facility]ERCE [id number] [place] [address] Aug, Chronic pain G89.29 ; Open bite of other finger without damage to nail, initial encounter S61.258A and Bitten by dog, initial encounter W54.0XXA [place] [id number] [place] [address] Jul, Menopause Z78.0 ; Ankle swelling, unspecified laterality M25.473 ; Chronic pain G89.29 and Tobacco abuse Z72.0 [facility] [address]00565100[place], [place] [address] Jun, [facility] [id number] [place] [address] Jun, Chronic pain G89.29 [facility] [id number] [place] [address] May, Dysuria R30.0 ; Dehydration E86.0 and Hypertension I10 [place] [address] [address] 19 May, 2017 Menopause Z78.0 ; Depression F32.9 ; Chronic pain G89.29 ; Environmental allergies Z91.09 ; 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 and Encounter for immunization Z23 [facility] [address] [place] [address] 18 May, 2017 Chronic pain G89.29 [facility] [id number] [place] [address] Apr, Chronic pain G89.29 [facility] [id number] [place] [address] Apr, Routine gynecological examination Z01.419 [place] [id number] [place] [address] Mar, Chronic pain G89.29 [facility] [id number] [place] [address] Feb, [facility] [id number] [place] [address] Feb, Chronic pain G89.29 [facility] [id number] [place] [address] Feb, [facility] [id number] [place] [address] January, Chronic pain G89.29 [facility] [id number] [place] [address] January, Routine gynecological examination Z01.419 and Breast cancer screening Z12.39 [facility] [id number] [place] [address] January, Chronic pain G89.29 [facility] [id number] [place] [address] Dec, Postmenopausal HRT (hormone replacement therapy) Z79.890 [facility] [id number] [place] [address] Dec, [facility] [id number] [place] [address] Nov, Chronic pain G89.29 [facility] [id number] [place] [address] 30 Nov, 2016 Chronic headaches R51 ; GERD (gastroesophageal reflux disease) K21.9 ; Hypertension I10 ; 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 ; Hepatitis C B19.20 ; Chronic pain G89.29 ; Pain of right thumb M79.644 ; Insomnia G47.00 ; Depression F32.9 ; Environmental allergies Z91.09 and Closed fracture of tuft of distal phalanx of finger, with routine healing, subsequent encounter S62.639D [facility] [id number] [place] [address] 15 Nov, 2016 [facility] [id number] [place] [address] Nov, [facility] [id number] [place] [address] Nov, [facility] [id number] [place] [address] 08 Nov, 2016 Hypertension I10 [facility] [id number] [place] [address] Nov, [facility] [id number] [place] [address] Nov, [facility] [id number] [place] [address] Oct, Anxiety F41.9 [facility] [id number] [place] [address] Oct, [facility] [id number] [place] [address] Oct, Acute upper respiratory infection, unspecified J06.9 and Other viral agents as the cause of diseases classified elsewhere B97.89 [facility] [id number] [place] [address] Oct, [facility] [id number] [place] [address] Oct, Right acute serous otitis media, recurrence not specified H65.01 and Pharyngitis, unspecified etiology J02.9 [facility] [id number] [place] [address] Sep, [facility] [id number] [place] [address] Aug, Environmental allergies Z91.09 [facility] [id number] [place] [address] Aug, [facility] [id number] [place] [address] Jul, Atypical nevi D22.9 [facility] [id number] [place] [address] Jul, [facility] [id number] [place] [address] Jul, [facility] [address] [place] [address] Jul, [facility] [id number] [place] [address] Jun, [facility] [id number] [place] [address] May, [facility] [id number] [place] [address] May, [facility] [id number] [place] [address] May, [facility] [address] [place] [address] Apr, [place] [id number] [place] [address] Apr, Chronic headaches R51 ; GERD (gastroesophageal reflux disease) K21.9 ; Hypertension I10 ; 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 ; Anxiety F41.9 ; COPD with acute exacerbation J44.1 ; Environmental allergies Z91.09 ; Depression F32.9 and Chronic pain G89.29 [place] [address] [address] Feb, Chronic headaches R51 and Chronic pain G89.29 [place] [address] [address] January, Chronic pain G89.29 and Anxiety F41.9 [place] [address] [address] January, Depression F32.9 and Hypertension I10 [place] [address] [address] January, Chronic pain G89.29 [place] [address] [address] Dec, [place] [address] [address] Dec, [place] [address] [address] Dec, Chronic headaches R51 ; Chronic pain G89.29 ; Environmental allergies Z91.09 ; GERD (gastroesophageal reflux disease) K21.9 ; Insomnia G47.00 ; Hypertension I10 and COPD with acute exacerbation J44.1 [place] [address] [address] Dec, [place] [address] [address] Dec, Chest pain R07.9 ; GERD (gastroesophageal reflux disease) K21.9 and Nausea R11.0 [place] [id number] [place] [address] Nov, [place] [id number] [place] [address] 24 Oct, 2015 COPD with acute exacerbation J44.1 ; Chronic headaches R51 ; GERD (gastroesophageal reflux disease) K21.9 ; Insomnia G47.00 ; Hypertension I10 ; Depression F32.9 and Anxiety F41.9 [place] [id number] [place] [address] Oct, [place] [address] [address] Oct, [place] [address] [address] Oct, [place] [id number] [place] [address] Oct, [place] [id number] [place] [address] Oct, Flu-like symptoms R68.89 and COPD with acute exacerbation J44.1 [place] [id number] [place] [address] Oct, [place] [id number] [place] [address] Oct, Left shoulder pain M25.512 ; Chronic headaches R51 ; Environmental allergies Z91.09 ; GERD (gastroesophageal reflux disease) K21.9 ; Insomnia G47.00 ; Hypertension I10 ; Depression F32.9 and 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 [place] [id number] [place] [address] Sep, [place] [id number] [place] [address] Sep, COPD (chronic obstructive pulmonary disease) J44.9 [address]005[address] [address] Sep, Bronchitis J40 [address] [address] Aug, Cervicalgia 723.1 ; Chronic hepatitis C without mention of hepatic coma 070.54 ; Essential hypertension 401.9 ; Chronic headaches R51 ; Environmental allergies Z91.09 ; GERD (gastroesophageal reflux disease) K21.9 ; Insomnia G47.00 ; Depression F32.9 and COPD (chronic obstructive pulmonary disease) J44.[address] [address] Jul, Essential hypertension 401.9 ; Hypertension I10 ; Depression F32.9 ; Anxiety F41.9 ; Chronic headaches R51 and Cervicalgia M54.[address] [address] Jul, Essential hypertension 401.9 and Anxiety F41.[address] [address] Jul, [address] [address] Jul, [address] [address] Jul, Insomnia G47.00 ; GERD (gastroesophageal reflux disease) K21.9 ; Essential hypertension 401.9 ; Bipolar I disorder, most recent episode (or current) depressed, moderate 296.52 ; Hepatitis C B19.20 ; Depression F32.9 ; Hypertension I10 ; 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 ; Chronic headaches R51 and Chronic pain G89.[address] [address] Jun, [address] [address] Jun, Chronic headaches R51 ; Environmental allergies Z91.09 ; GERD (gastroesophageal reflux disease) K21.9 ; Insomnia G47.00 ; Hepatitis C B19.20 ; Hypertension I10 ; Depression F32.9 ; 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 and Chronic pain G89.29 [place] [id number] [place] [address] Jun, [address] [address] Jun, Vision changes H53.[address] [address] Apr, [address] [address] Apr, Bipolar I disorder, most recent episode (or current) depressed, moderate 296.52 ; Other chronic pain 338.29 ; Chronic hepatitis C without mention of hepatic coma 070.54 ; Essential hypertension 401.9 ; Environmental allergies V15.09 and GERD (gastroesophageal reflux disease) 530.81 [place] [id number] [place] [address] Mar, [address] [address] Mar, [address] [address] Mar, [address] [address] Mar, [place] [id number] [place] [address] Mar, [address] [address] Feb, Routine gynecological examination V72.31 ; Breast cancer screening V76.10 and Tobacco abuse 305.[address] [address] Feb, [address] [place] [address] January, [facility] [address] [place] [address] January, [facility] [address] [place] [address] January, [facility] [id number] [place] [address] January, [facility] [id number] [place] [address] January, Mood disorder 296.90 and Anxiety 300.00 [facility] [id number] [place] [address] January, [facility] [id number] [place] [address] Dec, Headache 784.0 ; Other chronic pain 338.29 and Cervicalgia 723.1 [facility] [address], [place] [address] Dec, [facility] [id number] [place] [address] Dec, [facility] [address], [place] [address] Nov, [facility] [address], [place] [address] Nov, [facility] [address], [place] [address] Oct, [facility] [address], [place] [address] Oct, [facility] [address], [place] [address] Oct, [facility] [address], [place] [address] Oct, [facility] [place] [facility] [address] [id number] [place] [address] Oct, [facility] [place] [facility] [address] [id number] [place] [address] 20 Oct, 2014 [facility] [place] [facility] [address] [id number] [place] [address] Oct, [facility] [place] [facility] [address] [id number] [place] [address] Oct, 2014 [facility] [place] [facility] [address] [id number] [place] [address] Oct, [facility] [place] [facility] [address] [id number] [place] [address] 18 Oct, 2014 [facility] [place] [facility] [address] [id number] [place] [address] Oct, [facility] [place] [facility] [address] [id number] [place] [address] Oct, [facility] [place] [facility] [address] [id number] [place] [address] Sep, [facility] [place] [facility] [address] [id number] [place] [address] Sep, [facility] [place] [facility] [address] [id number], [place] [address] Sep, [facility] [place] [facility] [address] [id number], [place] [address] 15 Sep, 2014 [facility] [place] [facility] [address] [id number] [place] [address] 15 Sep, 2014 [facility] [place] [facility] [address] [id number], [place] [address] 14 Sep, 2014 [facility] [place] [facility] [address] [id number] [place] [address] 14 Sep, 2014 [facility] [place] [facility] [address] [id number] [place] [address] 14 Sep, 2014 [facility] [place] [facility] [address] [id number] [place] [address] Sep, [facility] [place] [facility] [address] [id number] [place] [address] Sep, [facility] [place] [facility] [address] [id number] [place] [address] Sep, [facility] [place] [facility] [address] [id number] [place] [address] Sep, [facility] [place] [facility] [address] [id number] [place] [address] Sep, [facility] [place] [facility] [address] [id number] [place] [address] Sep, [facility] [place] [facility] [address] [id number] [place] [address] Aug, [facility] [place] [facility] [address] [id number] [place] [address] Aug, [facility] [place] [facility] [address] [id number] [place] [address] Aug, [facility] [place] [facility] [address] [id number] [place] [address] Aug, [facility] [place] [facility] [address] [id number] [place] [address] 24 Aug, 2014 [facility] [place] [facility] [address] [id number] [place] [address] Aug, [facility] [place] [facility] [address] [id number] [place] [address] Aug, [facility] [place] [facility] [address] [id number] [place] [address] Aug, [facility] [place] [facility] [address] [id number] [place] [address] Aug, [facility] [place] [facility] [address] [id number] [place] [address] Aug, [facility] [place] [facility] [address] [id number] [place] [address] Aug, [facility] [place] [facility] [address] [id number] [place] [address] Aug, [facility] [place] [facility] [address] [id number] [place] [address] Aug, [facility] [place] [facility] [address] [id number] [place] [address] Jul, [facility] [place] [facility] [address] [id number] [place] [address] Jul, [facility] [place] [facility] [address] [id number] [place] [address] Feb, [facility] [place] [facility] [address] [id number] [place] [address] Feb, [facility] [place] [facility] [address] [id number] [place] [address] January, [facility] [place] [facility] [address] [id number] [place] [address] January, [facility] [place] [facility] [address] [id number] [place] [address] January, [facility] [place] [facility] [address] [id number] [place] [address] January, [facility] [place] [facility] [address] [id number] [place] [address] Nov, [facility] [place] [facility] [address] [id number] [place] [address] Nov, [facility] [place] [facility] [address] [id number] [place] [address] Nov, [facility] [place] [facility] [address] [id number] [place] [address] Nov, [facility] [address] [id number] [place] [address] Oct, [facility] [place] [facility] [address] [id number] [place] [address] Oct, [facility] [place] [facility] [address] [id number] [place] [address] Sep, [facility] [place] [facility] [address] [id number] [place] [address] Sep, [facility] [place] [facility] [address] [id number] [place] [address] Sep, [facility] [place] [facility] [address] [id number] [place] [address] Sep, [facility] [address] [id number] [place] [address] Aug, [facility] [place] [facility] [address] [id number] [place] [address] Aug, [facility] [place] [facility] [address] [id number] [place] [address] Aug, [facility] [place] [facility] [address] [facility] [id number] [place] [address] Aug, [facility] [place] [facility] [address] [id number] [place] [address] Aug, [facility] [place] [facility] [address] [id number] [place] [address] Aug, [facility] [place] [facility] [address] [id number] [place] [address] Aug, [facility] [place] [facility] [address] [id number] [place] [address] Jul, [facility] [place] [facility] [address] [id number] [place] [address] Jul, [facility] [place] [facility] [address] [id number] [place] [address] 19 Jul, 2013 [facility] [place] [facility] [address] [id number] [place] [address] Jul, [facility] [place] [facility] [address] [id number] [place] [address] Jul, [facility] [place] [facility] [address] [id number] [place] [address] Jul, [facility] [place] [facility] [address] [id number] [place] [address] Jul, [facility] [place] [facility] [address] [id number] [place] [address] Jun, [facility] [place] [facility] [address] [id number] [place] [address] Jun, [facility] [place] [facility] [address] [id number] [place] [address] Jun, [facility] [place] [facility] [address] [id number] [place] [address] Jun, [facility] [place] [facility] [address] [id number] [place] [address] Jul, [facility] [place] [facility] [address] [id number] [place] [address] 16 Jul, 2010 [facility] [place] [facility] [address] [id number] [place] [address] Jul, [facility] [place] [facility] [address] [id number] [place] [address] Jul, [facility] [place] [facility] [address] [id number] [place] [address] Jun, [facility] [place] [facility] [address] [id number] [place] [address] 31 Jun, 2009 [facility] [place] [facility] [address] [id number] [place] [address] Jun, [facility] [address] [facility] [id number] [place] [address] Jun, [facility] [address] [id number], [place] [address] Jun, [facility] [address] [facility] [id number], [place] [address] Mar, [facility] [address] [facility] [id number], [place] [address] January, IMMUNIZATIONS No Known Immunizations SOCIAL HISTORY Never Assessed REASON FOR VISIT EMR-[facility] [place], [place] PLAN OF CARE VITAL SIGNS MEDICATIONS No Known Medications RESULTS No Results PROCEDURES No Known [...] History child Hospitalization History low blood pressure--via [facility] 12/2017
--- OUTSIDE RECORDS SUMMARY | 2019-04-09 01:23 | XMS REPORT ---
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 Name Role Phone Migration, Doctor Unavailable Unavailable PROBLEMS Type Condition ICD9-CM Code PNP28-MN Code Onset Dates Condition Status SNOMED Code Problem Spinal stenosis of thoracolumbar region M48.05 Active 34660609 Problem Other idiopathic scoliosis, thoracolumbar region M41.25 Active 891112846 Problem Chronic pain G89.29 Active 61515523 Problem 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 Active 35933109 Problem Hypertension I10 Active 61098362 Problem Chronic headaches R51 Active 347254922 Problem Dyslipidemia E78.5 Active 384273571 Problem DDD (degenerative disc disease), thoracolumbar M51.35 Active 11462409 Problem GERD (gastroesophageal reflux disease) K21.9 Active 913735250 Problem Acute right hip pain M25.551 Active 48127489 Problem Environmental allergies Z91.09 Active 267499008 Problem Tobacco abuse Z72.0 Active 66984022 Problem Obsessive-compulsive disorder, unspecified type F42.9 Active 116577095 Problem Bipolar I disorder F31.9 Active 293644826 Problem Spondylosis of cervical region without myelopathy or radiculopathy M47.812 Active 340248205 ALLERGIES No Information ENCOUNTERS Encounter Location Date Diagnosis [facility] [place] [id number] [id number] Dec, Spinal stenosis of thoracolumbar region M48.05 ; DDD (degenerative disc disease), thoracolumbar M51.35 ; Spondylosis of cervical region without myelopathy or radiculopathy M47.812 ; Chronic pain G89.29 ; Acute right hip pain M25.551 and Depression F32.9 [facility] [place] [address] [facility] [id number] Power Networks[place] [id number] Dec, Chronic pain G89.29 [facility] [place] [address] [id number] [place] [id number] Nov, [facility] [place] [address] [id number] [place] [address] Nov, Chronic pain G89.29 [facility] [place] [address] [id number] [place] [id number] Nov, [facility] [place] [address] [id number] [place] [id number] Oct, [facility] [place] [address] [id number] [place] [address] Oct, Chronic pain G89.29 [facility] [place] [address] [id number] [place] [address] Sep, Chronic pain G89.29 [facility] [place] [address] [id number] [place] [address] Sep, [facility] [place] [address] [id number] [place] [address] Sep, Otitis media H66.90 and URI (upper respiratory infection) J06.9 [facility] [place] [address] [id number] [place] [address] Aug, Chronic pain G89.29 [facility] [place] [address] [id number] [place] [id number] Aug, 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 [facility] [place] [address] [id number] [place] [address] Aug, Sinusitis J32.9 and Nausea R11.0 [facility] [place] [address] [id number] [place] [address] Aug, Chronic pain G89.29 ; Spondylosis of cervical region without myelopathy or radiculopathy M47.812 and DDD (degenerative disc disease), thoracolumbar M51.35 [facility] [place] [address] [id number] [place] [address] Aug, Bipolar I disorder F31.9 [facility] [place] [address] [id number] [place] [address] Aug, Bipolar I disorder F31.9 and Obsessive-compulsive disorder, unspecified type F42.9 [facility] [place] [address] [id number] [place] [address] Jul, Chronic pain G89.29 [facility] [place] [address] [id number] [address] Jul, [facility] [place] [id number][place] [address] Jul, Bipolar I disorder F31.9 and Obsessive-compulsive disorder, unspecified type F42.9 [facility] [place] [id number][place] [id number] Jul, GERD (gastroesophageal reflux disease) K21.9 ; Hypertension I10 ; 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 ; Chronic pain G89.29 ; Dyslipidemia E78.5 ; Environmental allergies Z91.09 and Encounter for immunization Z23 [address]005[address] [address] Jun, Chronic pain G89.29 [address]00565100[place] [address] Jun, [address]00565100[place] [address] Jun, [address]00565100[place] [address] Jun, Dyslipidemia E78.5 [address]00565100[place] [address] Jun, Chronic pain G89.29 [address]00565100[place] [address] May, [address]00565100[place] [address] May, Chronic pain G89.29 ; Tobacco abuse Z72.0 ; High risk medication use Z79.899 ; Dyslipidemia E78.5 ; Hepatitis C B19.20 ; Hypertension I10 ; Environmental allergies Z91.09 ; Anxiety F41.9 ; 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 and GERD (gastroesophageal reflux disease) K21.9 [facility] [address] [id number] [address] Apr, Chronic pain G89.29 [facility] [address] [address] Mar, Costochondral separation, initial encounter S23.29XA and Injury of toe on left foot, initial encounter S99.922A [address] [id number] Mar, Chronic pain G89.29 [facility] [address] [address] Feb, Poison elda L23.[address] [id number] Feb, Chronic pain G89.29 [address] [address] [address] Feb, Bronchitis J40 [address] [id number] Feb, [address] [id number] Feb, Chronic pain G89.[address] [id number] January, Vaginal discharge N89.8 ; Increased urinary frequency R35.0 ; Acute cystitis with hematuria N30.01 ; Other specified bacterial agents as the cause of diseases classified elsewhere B96.89 and Acute vaginitis N76.[address] [id number] January, Chronic pain G89.29 and Candidiasis B37.9 [facility] [address] [address] January, [facility] [address] [address] Dec, Acute frontal sinusitis, recurrence not specified J01.10 and Cough R05 [address] [id number] Dec, [address] [id number] Nov, [address] [address]00565100[place], [place] [address] Nov, Bronchitis J40 [facility] [address] [id number] [id number] Nov, [facility] [id number] [place] [address] Oct, COPD with acute exacerbation J44.1 [facility] [id number] [place] [id number] Oct, Chronic pain G89.29 [facility] [id number] [place] [id number] Oct, [facility] [id number] [place] [id number] Sep, Chronic pain G89.29 ; Depression F32.9 ; Anxiety F41.9 ; 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 and Flu-like symptoms R68.89 [facility] [id number] [place] [address] Aug, Chronic pain G89.29 ; Open bite of other finger without damage to nail, initial encounter S61.258A and Bitten by dog, initial encounter W54.0XXA [id number] [place] [address] Jul, Menopause Z78.0 ; Ankle swelling, unspecified laterality M25.473 ; Chronic pain G89.29 and Tobacco abuse Z72.0 [facility] [address]00565100[place], [place] [address] Jun, [facility] [id number] [place] [address] Jun, Chronic pain G89.29 [facility] [id number] [place] [address] May, Dysuria R30.0 ; Dehydration E86.0 and Hypertension I10 [place] [address] [address] 19 May, 2017 Menopause Z78.0 ; Depression F32.9 ; Chronic pain G89.29 ; Environmental allergies Z91.09 ; 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 and Encounter for immunization Z23 [facility] [address] [place] [address] 18 May, 2017 Chronic pain G89.29 [facility] [id number] [place] [address] Apr, Chronic pain G89.29 [facility] [id number] [place] [address] Apr, Routine gynecological examination Z01.419 [place] [id number] [place] [address] Mar, Chronic pain G89.29 [facility] [id number] [place] [address] Feb, [facility] [id number] [place] [address] Feb, Chronic pain G89.29 [facility] [id number] [place] [address] Feb, [facility] [id number] [place] [address] January, Chronic pain G89.29 [facility] [id number] [place] [address] January, Routine gynecological examination Z01.419 and Breast cancer screening Z12.39 [facility] [id number] [place] [address] January, Chronic pain G89.29 [facility] [id number] [place] [address] Dec, Postmenopausal HRT (hormone replacement therapy) Z79.890 [facility] [id number] [place] [address] Dec, [facility] [id number] [place] [address] Nov, Chronic pain G89.29 [facility] [id number] [place] [address] 30 Nov, 2016 Chronic headaches R51 ; [...] finger, with routine healing, subsequent encounter S62.639D [facility] [id number] [place] [address] 15 Nov, 2016 [facility] [id number] [place] [address] Nov, [facility] [id number] [place] [address] Nov, [facility] [id number] [place] [address] 08 Nov, 2016 Hypertension I10 [facility] [id number] [place] [address] Nov, [facility] [id number] [place] [address] Nov, [facility] [id number] [place] [address] Oct, Anxiety F41.9 [facility] [id number] [place] [address] Oct, [facility] [id number] [place] [address] Oct, Acute upper respiratory infection, unspecified J06.9 and Other viral agents as the cause of diseases classified elsewhere B97.89 [facility] [id number] [place] [address] Oct, [facility] [id number] [place] [address] Oct, Right acute serous otitis media, recurrence not specified H65.01 and Pharyngitis, unspecified etiology J02.9 [facility] [id number] [place] [address] Sep, [facility] [id number] [place] [address] Aug, Environmental allergies Z91.09 [facility] [id number] [place] [address] Aug, [facility] [id number] [place] [address] Jul, Atypical nevi D22.9 [facility] [id number] [place] [address] Jul, [facility] [id number] [place] [address] Jul, [facility] [address] [place] [address] Jul, [facility] [id number] [place] [address] Jun, [facility] [id number] [place] [address] May, [facility] [id number] [place] [address] May, [facility] [id number] [place] [address] May, [facility] [address] [place] [address] Apr, [place] [id number] [place] [address] Apr, Chronic headaches R51 ; GERD (gastroesophageal reflux disease) K21.9 ; Hypertension I10 ; 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 ; Anxiety F41.9 ; COPD with acute exacerbation J44.1 ; Environmental allergies Z91.09 ; Depression F32.9 and Chronic pain G89.29 [place] [address] [address] Feb, Chronic headaches R51 and Chronic pain G89.29 [place] [address] [address] January, Chronic pain G89.29 and Anxiety F41.9 [place] [address] [address] January, Depression F32.9 and Hypertension I10 [place] [address] [address] January, Chronic pain G89.29 [place] [address] [address] Dec, [place] [address] [address] Dec, [place] [address] [address] Dec, Chronic headaches R51 ; Chronic pain G89.29 ; Environmental allergies Z91.09 ; GERD (gastroesophageal reflux disease) K21.9 ; Insomnia G47.00 ; Hypertension I10 and COPD with acute exacerbation J44.1 [place] [address] [address] Dec, [place] [address] [address] Dec, Chest pain R07.9 ; GERD (gastroesophageal reflux disease) K21.9 and Nausea R11.0 [place] [id number] [place] [address] Nov, [place] [id number] [place] [address] 24 Oct, 2015 COPD with acute exacerbation J44.1 ; Chronic headaches R51 ; GERD (gastroesophageal reflux disease) K21.9 ; Insomnia G47.00 ; Hypertension I10 ; Depression F32.9 and Anxiety F41.9 [place] [id number] [place] [address] Oct, [place] [address] [address] Oct, [place] [address] [address] Oct, [id number] [place] [address] Oct, [id number] [place] [address] Oct, Flu-like symptoms R68.89 and COPD with acute exacerbation J44.1 [address] [id number] [place] [address] Oct, [place] [id number] [place] [address] Oct, Left shoulder pain M25.512 ; Chronic headaches R51 ; Environmental allergies Z91.09 ; GERD (gastroesophageal reflux disease) K21.9 ; Insomnia G47.00 ; Hypertension I10 ; Depression F32.9 and 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 [id number] [place] [address] Sep, [id number] [place] [address] Sep, COPD (chronic obstructive pulmonary disease) J44.9 [address] [address] Sep, Bronchitis J40 [address] [address] Aug, Cervicalgia 723.1 ; Chronic hepatitis C without mention of hepatic coma 070.54 ; Essential hypertension 401.9 ; Chronic headaches R51 ; Environmental allergies Z91.09 ; GERD (gastroesophageal reflux disease) K21.9 ; Insomnia G47.00 ; Depression F32.9 and COPD (chronic obstructive pulmonary disease) J44.[address] [address] Jul, Essential hypertension 401.9 ; Hypertension I10 ; Depression F32.9 ; Anxiety F41.9 ; Chronic headaches R51 and Cervicalgia M54.[address] [address] Jul, Essential hypertension 401.9 and Anxiety F41.[address] [address] Jul, [address] [address] Jul, [address] [address] Jul, Insomnia G47.00 ; GERD (gastroesophageal reflux disease) K21.9 ; Essential hypertension 401.9 ; Bipolar I disorder, most recent episode (or current) depressed, moderate 296.52 ; Hepatitis C B19.20 ; Depression F32.9 ; Hypertension I10 ; 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 ; Chronic headaches R51 and Chronic pain G89.[address] [address] Jun, [address] [address] Jun, Chronic headaches R51 ; Environmental allergies Z91.09 ; GERD (gastroesophageal reflux disease) K21.9 ; Insomnia G47.00 ; Hepatitis C B19.20 ; Hypertension I10 ; Depression F32.9 ; 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 and Chronic pain G89.29 [id number] [place] [address] Jun, [address] [address] Jun, Vision changes H53.[address] [address] Apr, [address] [address] Apr, Bipolar I disorder, most recent episode (or current) depressed, moderate 296.52 ; Other chronic pain 338.29 ; Chronic hepatitis C without mention of hepatic coma 070.54 ; Essential hypertension 401.9 ; Environmental allergies V15.09 and GERD (gastroesophageal reflux disease) 530.81 [address] [id number] [place] [address] Mar, [address] [address] Mar, [address] [address] Mar, [address] [address] Mar, [id number] [place] [address] Mar, [address] [address] Feb, Routine gynecological examination V72.31 ; Breast cancer screening V76.10 and Tobacco abuse 305.[address] [address] Feb, [address] [place] [address] January, [facility] [address] [place] [address] January, [facility] [address] [place] [address] January, [facility] [id number] [place] [address] January, [facility] [id number] [place] [address] January, Mood disorder 296.90 and Anxiety 300.00 [facility] [id number] [place] [address] January, [facility] [id number] [place] [address] Dec, Headache 784.0 ; Other chronic pain 338.29 and Cervicalgia 723.1 [facility] [address], [place] [address] Dec, [facility] [id number] [place] [address] Dec, [facility] [address], [place] [address] Nov, [facility] [address], [place] [address] Nov, [facility] [address], [place] [address] Oct, [facility] [address], [place] [address] Oct, [facility] [address], [place] [address] Oct, [facility] [address], [place] [address] Oct, [facility] [place] [facility] [address] [id number] [place] [address] Oct, [facility] [place] [facility] [address] [id number] [place] [address] 20 Oct, 2014 [facility] [place] [facility] [address] [id number] [place] [address] Oct, [facility] [place] [facility] [address] [id number] [place] [address] Oct, 2014 [facility] [place] [facility] [address] [id number] [place] [address] Oct, [facility] [place] [facility] [address] [id number] [place] [address] 18 Oct, 2014 [facility] [place] [facility] [address] [id number] [place] [address] Oct, [facility] [place] [facility] [address] [id number] [place] [address] Oct, [facility] [place] [facility] [address] [id number] [place] [address] Sep, [facility] [place] [facility] [address] [id number] [place] [address] Sep, [facility] [place] [facility] [address] [id number], [place] [address] Sep, [facility] [place] [facility] [address] [id number], [place] [address] 15 Sep, 2014 [facility] [place] [facility] [address] [id number] [place] [address] 15 Sep, 2014 [facility] [place] [facility] [address] [id number], [place] [address] 14 Sep, 2014 [facility] [place] [facility] [address] [id number] [place] [address] 14 Sep, 2014 [facility] [place] [facility] [address] [id number] [place] [address] 14 Sep, 2014 [facility] [place] [facility] [address] [id number] [place] [address] Sep, [facility] [place] [facility] [address] [id number] [place] [address] Sep, [facility] [place] [facility] [address] [id number] [place] [address] Sep, [facility] [place] [facility] [address] [id number] [place] [address] Sep, [facility] [place] [facility] [address] [id number] [place] [address] Sep, [facility] [place] [facility] [address] [id number] [place] [address] Sep, [facility] [place] [facility] [address] [id number] [place] [address] Aug, [facility] [place] [facility] [address] [id number] [place] [address] Aug, [facility] [place] [facility] [address] [id number] [place] [address] Aug, [facility] [place] [facility] [address] [id number] [place] [address] Aug, [facility] [place] [facility] [address] [id number] [place] [address] 24 Aug, 2014 [facility] [place] [facility] [address] [id number] [place] [address] Aug, [facility] [place] [facility] [address] [id number] [place] [address] Aug, [facility] [place] [facility] [address] [id number] [place] [address] Aug, [facility] [place] [facility] [address] [id number] [place] [address] Aug, [facility] [place] [facility] [address] [id number] [place] [address] Aug, [facility] [place] [facility] [address] [id number] [place] [address] Aug, [facility] [place] [facility] [address] [id number] [place] [address] Aug, [facility] [place] [facility] [address] [id number] [place] [address] Aug, [facility] [place] [facility] [address] [id number] [place] [address] Jul, [facility] [place] [facility] [address] [id number] [place] [address] Jul[facility] [place] [facility] [address] [id number] [place] [address] Feb, [facility] [place] [facility] [address] [id number] [place] [address] Feb, [facility] [place] [facility] [address] [id number] [place] [address] January, [facility] [place] [facility] [address] [id number] [place] [address] January, [facility] [place] [facility] [address] [id number] [place] [address] January, [facility] [place] [facility] [address] [id number] [place] [address] January, [facility] [place] [facility] [address] [id number] [place] [address] Nov, [facility] [place] [facility] [address] [id number] [place] [address] Nov, [facility] [place] [facility] [address] [id number] [place] [address] Nov, [facility] [place] [facility] [address] [id number] [place] [address] Nov, [facility] [address] [id number] [place] [address] Oct, [facility] [place] [facility] [address] [id number] [place] [address] Oct, [facility] [place] [facility] [address] [id number] [place] [address] Sep, [facility] [place] [facility] [address] [id number] [place] [address] Sep, [facility] [place] [facility] [address] [id number] [place] [address] Sep, [facility] [place] [facility] [address] [id number] [place] [address] Sep, [facility] [address] [id number] [place] [address] Aug, [facility] [place] [facility] [address] [id number] [place] [address] Aug, [facility] [place] [facility] [address] [id number] [place] [address] Aug, [facility] [place] [facility] [address] [facility] [id number] [place] [address] Aug, [facility] [place] [facility] [address] [id number] [place] [address] Aug, [facility] [place] [facility] [address] [id number] [place] [address] Aug, [facility] [place] [facility] [address] [id number] [place] [address] Aug, [facility] [place] [facility] [address] [id number] [place] [address] Jul, [facility] [place] [facility] [address] [id number] [place] [address] Jul, [facility] [place] [facility] [address] [id number] [place] [address] 19 Jul, 2013 [facility] [place] [facility] [address] [id number] [place] [address] Jul, [facility] [place] [facility] [address] [id number] [place] [address] Jul, [facility] [place] [facility] [address] [id number] [place] [address] Jul, [facility] [place] [facility] [address] [id number] [place] [address] Jul, [facility] [place] [facility] [address] [id number] [place] [address] Jun, [facility] [place] [facility] [address] [id number] [place] [address] Jun, [facility] [place] [facility] [address] [id number] [place] [address] Jun, [facility] [place] [facility] [address] [id number] [place] [address] Jun, [facility] [place] [facility] [address] [id number] [place] [address] Jul, [facility] [place] [facility] [address] [id number] [place] [address] 16 Jul, 2010 [facility] [place] [facility] [address] [id number] [place] [address] Jul, [facility] [place] [facility] [address] [id number] [place] [address] Jul, [facility] [place] [facility] [address] [id number] [place] [address] Jun, [facility] [place] [facility] [address] [id number] [place] [address] 31 Jun, 2009 [facility] [place] [facility] [address] [id number] [place] [address] Jun, [facility] [address] [facility] [id number] [place] [address] Jun, [facility] [address] [id number] [address] Jun, [facility] [address] [facility] [id number], [place] [address] Mar, [facility] [address] [facility] [id number], [place] [address] January, IMMUNIZATIONS No Known Immunizations SOCIAL HISTORY Never Assessed REASON FOR VISIT EMR-[facility] [place] OF CARE VITAL SIGNS MEDICATIONS No [...] History child Hospitalization History low blood pressure--via [facility] 12/2017
[2019-04-09 01:24] LABS: BASOPHILS # (AUTO) 0.1 10^3/uL (0.0-0.1); BASOPHILS % (AUTO) 1 % (0-10); EOSINOPHILS # (AUTO) 0.4 10^3/uL (0.0-0.3); EOSINOPHILS % (AUTO) 5 % (0-10); HEMATOCRIT 39 % (35-52); HEMOGLOBIN 13.3 G/DL (11.5-16.0); LYMPHOCYTES # (AUTO) 2.7 X 10^3 (1.0-4.0); LYMPHOCYTES % (AUTO) 30 % (12-44); MEAN CORPUSCULAR HEMOGLOBIN 33 PG (25-34); MEAN CORPUSCULAR HGB CONC 35 G/DL (32-36); MEAN CORPUSCULAR VOLUME 94 FL (80-99); MEAN PLATELET VOLUME 11.2 FL (7.4-10.4); MONOCYTES # (AUTO) 0.7 X 10^3 (0.0-1.0); MONOCYTES % (AUTO) 8 % (0-12); NEUTROPHILS # (AUTO) 5.1 X 10^3 (1.8-7.8); NEUTROPHILS % (AUTO) 57 % (42-75); PLATELET COUNT 195 10^3/uL (130-400); RED CELL DISTRIBUTION WIDTH 12.5 % (10.0-14.5); WHITE BLOOD COUNT 8.9 10^3/uL (4.3-11.0)
--- OUTSIDE RECORDS SUMMARY | 2019-04-09 01:24 | XMS REPORT ---
Author Author Migration, Doctor Organization [facility] Address Unknown Phone Unavailable Care Team Providers Care Director [employer] Name Role Phone Migration, Doctor Unavailable Unavailable PROBLEMS Type Condition ICD9-CM Code NDO38-RV Code Onset Dates Condition Status SNOMED Code Problem Spinal stenosis of thoracolumbar region M48.05 Active 13985724 Problem Other idiopathic scoliosis, thoracolumbar region M41.25 Active 772764305 Problem Chronic pain G89.29 Active 66255453 Problem 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 Active 90250890 Problem Hypertension I10 Active 91672775 Problem Chronic headaches R51 Active 769332268 Problem Dyslipidemia E78.5 Active 589697973 Problem DDD (degenerative disc disease), thoracolumbar M51.35 Active 37001667 Problem GERD (gastroesophageal reflux disease) K21.9 Active 384801626 Problem Acute right hip pain M25.551 Active 16785729 Problem Environmental allergies Z91.09 Active 864600316 Problem Tobacco abuse Z72.0 Active 92323922 Problem Obsessive-compulsive disorder, unspecified type F42.9 Active 772436954 Problem Bipolar I disorder F31.9 Active 918072030 Problem Spondylosis of cervical region without myelopathy or radiculopathy M47.812 Active 081099007 ALLERGIES No Information ENCOUNTERS Encounter Location Date Diagnosis [facility] [place] [id number] [id number] Dec, Spinal stenosis of thoracolumbar region M48.05 ; DDD (degenerative disc disease), thoracolumbar M51.35 ; Spondylosis of cervical region without myelopathy or radiculopathy M47.812 ; Chronic pain G89.29 ; Acute right hip pain M25.551 and Depression F32.9 [facility] [place] [address] [facility] [id number] Explorer[place] [id number] Dec, Chronic pain G89.29 [facility] [place] [address] [id number] [place] [id number] Nov, [facility] [place] [address] [id number] [place] [address] Nov, Chronic pain G89.29 [facility] [place] [address] [id number] [place] [id number] Nov, [facility] [place] [address] [id number] [place] [address] Oct, [facility] [place] [address] [id number] [place] [address] Oct, Chronic pain G89.29 [facility] [place] [address] [id number] [place] [address] Sep, Chronic pain G89.29 [facility] [place] [address] [id number] [place] [address] Sep, [facility] [place] [address] [id number] [place] [address] Sep, Otitis media H66.90 and URI (upper respiratory infection) J06.9 [facility] [place] [address] [id number] [place] [id number] Aug, Chronic pain G89.29 [facility] [place] [address] [id number] [place] [id number] Aug, 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 [facility] [place] [address] [id number] [place] [address] Aug, Sinusitis J32.9 and Nausea R11.0 [facility] [place] [address] [id number] [place] [address] Aug, Chronic pain G89.29 ; Spondylosis of cervical region without myelopathy or radiculopathy M47.812 and DDD (degenerative disc disease), thoracolumbar M51.35 [facility] [place] [address] [id number] [place] [address] Aug, Bipolar I disorder F31.9 [facility] [place] [address] [id number] [place] [address] Aug, Bipolar I disorder F31.9 and Obsessive-compulsive disorder, unspecified type F42.9 [facility] [place] [address] [id number] [place] [id number] Jul, Chronic pain G89.29 [facility] [place] [address] [id number][place] [address] Jul, [facility] [place] [id number][place] [id number] Jul, Bipolar I disorder F31.9 and Obsessive-compulsive disorder, unspecified type F42.9 [facility] [place] [id number][place] [address] Jul, GERD (gastroesophageal reflux disease) K21.9 ; Hypertension I10 ; 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 ; Chronic pain G89.29 ; Dyslipidemia E78.5 ; Environmental allergies Z91.09 and Encounter for immunization Z23 [address] [address] Jun, Chronic pain G89.29 [address]00565100[place] [address] Jun, [address] [address] Jun, [address] [address] Jun, Dyslipidemia E78.5 [address]00565100[place] [address] Jun, Chronic pain G89.29 [address]00565100[place] [address] May, [address]005[address] [address] May, Chronic pain G89.29 ; Tobacco abuse Z72.0 ; High risk medication use Z79.899 ; Dyslipidemia E78.5 ; Hepatitis C B19.20 ; Hypertension I10 ; Environmental allergies Z91.09 ; Anxiety F41.9 ; 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 and GERD (gastroesophageal reflux disease) K21.9 [facility] [address] [id number] [address] Apr, Chronic pain G89.29 [facility] [address] [address] Mar, Costochondral separation, initial encounter S23.29XA and Injury of toe on left foot, initial encounter S99.922A [address] [id number] Mar, Chronic pain G89.29 [facility] [address] [address] Feb, Poison elda L23.[address] [id number] Feb, Chronic pain G89.29 [place] [address] [address] Feb, Bronchitis J40 [address] [id number] Feb, [address] [address] Feb, Chronic pain G89.[address] [id number] January, Vaginal discharge N89.8 ; Increased urinary frequency R35.0 ; Acute cystitis with hematuria N30.01 ; Other specified bacterial agents as the cause of diseases classified elsewhere B96.89 and Acute vaginitis N76.[address] [id number] January, Chronic pain G89.29 and Candidiasis B37.9 [facility] [address] [address] January, [facility] [address] [address] Dec, Acute frontal sinusitis, recurrence not specified J01.10 and Cough R05 [address] [id number] Dec, [address] [id number] Nov, [place] [address]00565100[place], [place] [address] Nov, Bronchitis J40 [facility] [address] [id number] [address] Nov, [facility] [id number] [place] [address] Oct, COPD with acute exacerbation J44.1 [facility] [id number] [place] [id number] Oct, Chronic pain G89.29 [facility] [id number] [place] [id number] Oct, [facility] [id number] [place] [id number] Sep, Chronic pain G89.29 ; Depression F32.9 ; Anxiety F41.9 ; 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 and Flu-like symptoms R68.89 [facility] [id number] [place] [address] Aug, Chronic pain G89.29 ; Open bite of other finger without damage to nail, initial encounter S61.258A and Bitten by dog, initial encounter W54.0XXA [place] [address] [id number] [place] [address] Jul, Menopause Z78.0 ; Ankle swelling, unspecified laterality M25.473 ; Chronic pain G89.29 and Tobacco abuse Z72.0 [facility] [address]00565100[place], [place] [address] Jun, [facility] [id number] [place] [address] Jun, Chronic pain G89.29 [facility] [id number] [place] [address] May, Dysuria R30.0 ; Dehydration E86.0 and Hypertension I10 [place] [address] [address] 19 May, 2017 Menopause Z78.0 ; Depression F32.9 ; Chronic pain G89.29 ; Environmental allergies Z91.09 ; 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 and Encounter for immunization Z23 [facility] [address] [place] [address] 18 May, 2017 Chronic pain G89.29 [facility] [id number] [place] [address] Apr, Chronic pain G89.29 [facility] [id number] [place] [address] Apr, Routine gynecological examination Z01.419 [place] [id number] [place] [address] Mar, Chronic pain G89.29 [facility] [id number] [place] [address] Feb, [facility] [id number] [place] [address] Feb, Chronic pain G89.29 [facility] [id number] [place] [address] Feb, [facility] [id number] [place] [address] January, Chronic pain G89.29 [facility] [id number] [place] [address] January, Routine gynecological examination Z01.419 and Breast cancer screening Z12.39 [facility] [id number] [place] [address] January, Chronic pain G89.29 [facility] [id number] [place] [address] Dec, Postmenopausal HRT (hormone replacement therapy) Z79.890 [facility] [id number] [place] [address] Dec, [facility] [id number] [place] [address] Nov, Chronic pain G89.29 [facility] [id number] [place] [address] 30 Nov, 2016 Chronic headaches R51 ; [...] finger, with routine healing, subsequent encounter S62.639D [facility] [id number] [place] [address] 15 Nov, 2016 [facility] [id number] [place] [address] Nov, [facility] [id number] [place] [address] Nov, [facility] [id number] [place] [address] 08 Nov, 2016 Hypertension I10 [facility] [id number] [place] [address] Nov, [facility] [id number] [place] [address] Nov, [facility] [id number] [place] [address] Oct, Anxiety F41.9 [facility] [id number] [place] [address] Oct, [facility] [id number] [place] [address] Oct, Acute upper respiratory infection, unspecified J06.9 and Other viral agents as the cause of diseases classified elsewhere B97.89 [facility] [id number] [place] [address] Oct, [facility] [id number] [place] [address] Oct, Right acute serous otitis media, recurrence not specified H65.01 and Pharyngitis, unspecified etiology J02.9 [facility] [id number] [place] [address] Sep, [facility] [id number] [place] [address] Aug, Environmental allergies Z91.09 [facility] [id number] [place] [address] Aug, [facility] [id number] [place] [address] Jul, Atypical nevi D22.9 [facility] [id number] [place] [address] Jul, [facility] [id number] [place] [address] Jul, [facility] [address] [place] [address] Jul, [facility] [id number] [place] [address] Jun, [facility] [id number] [place] [address] May, [facility] [id number] [place] [address] May, [facility] [id number] [place] [address] May, [facility] [address] [place] [address] Apr, [place] [id number] [place] [address] Apr, Chronic headaches R51 ; GERD (gastroesophageal reflux disease) K21.9 ; Hypertension I10 ; 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 ; Anxiety F41.9 ; COPD with acute exacerbation J44.1 ; Environmental allergies Z91.09 ; Depression F32.9 and Chronic pain G89.29 [place] [address] [address] Feb, Chronic headaches R51 and Chronic pain G89.29 [place] [address] [address] January, Chronic pain G89.29 and Anxiety F41.9 [place] [address] [address] January, Depression F32.9 and Hypertension I10 [place] [address] [address] January, Chronic pain G89.29 [place] [address] [address] Dec, [place] [address] [address] Dec, [place] [address] [address] Dec, Chronic headaches R51 ; Chronic pain G89.29 ; Environmental allergies Z91.09 ; GERD (gastroesophageal reflux disease) K21.9 ; Insomnia G47.00 ; Hypertension I10 and COPD with acute exacerbation J44.1 [place] [address] [address] Dec, [place] [address] [address] Dec, Chest pain R07.9 ; GERD (gastroesophageal reflux disease) K21.9 and Nausea R11.0 [place] [id number] [place] [address] Nov, [place] [id number] [place] [address] 24 Oct, 2015 COPD with acute exacerbation J44.1 ; Chronic headaches R51 ; GERD (gastroesophageal reflux disease) K21.9 ; Insomnia G47.00 ; Hypertension I10 ; Depression F32.9 and Anxiety F41.9 [place] [id number] [place] [address] Oct, [place] [address] [address] Oct, [place] [address] [address] Oct, [place] [id number] [place] [address] Oct, [place] [id number] [place] [address] Oct, Flu-like symptoms R68.89 and COPD with acute exacerbation J44.1 [place] [id number] [place] [address] Oct, [place] [id number] [place] [address] Oct, Left shoulder pain M25.512 ; Chronic headaches R51 ; Environmental allergies Z91.09 ; GERD (gastroesophageal reflux disease) K21.9 ; Insomnia G47.00 ; Hypertension I10 ; Depression F32.9 and 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 [address] [id number] [place] [address] Sep, [address] [id number] [place] [address] Sep, COPD (chronic obstructive pulmonary disease) J44.9 [address]100[place] [address] Sep, Bronchitis J40 [address] [address] Aug, Cervicalgia 723.1 ; Chronic hepatitis C without mention of hepatic coma 070.54 ; Essential hypertension 401.9 ; Chronic headaches R51 ; Environmental allergies Z91.09 ; GERD (gastroesophageal reflux disease) K21.9 ; Insomnia G47.00 ; Depression F32.9 and COPD (chronic obstructive pulmonary disease) J44.[address] [address] Jul, Essential hypertension 401.9 ; Hypertension I10 ; Depression F32.9 ; Anxiety F41.9 ; Chronic headaches R51 and Cervicalgia M54.[address] [address] Jul, Essential hypertension 401.9 and Anxiety F41.[address] [address] Jul, [address] [address] Jul, [address] [address] Jul, Insomnia G47.00 ; GERD (gastroesophageal reflux disease) K21.9 ; Essential hypertension 401.9 ; Bipolar I disorder, most recent episode (or current) depressed, moderate 296.52 ; Hepatitis C B19.20 ; Depression F32.9 ; Hypertension I10 ; 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 ; Chronic headaches R51 and Chronic pain G89.[address] [address] Jun, [address] [address] Jun, Chronic headaches R51 ; Environmental allergies Z91.09 ; GERD (gastroesophageal reflux disease) K21.9 ; Insomnia G47.00 ; Hepatitis C B19.20 ; Hypertension I10 ; Depression F32.9 ; 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 and Chronic pain G89.29 [place] [id number] [place] [address] Jun, [address] [address] Jun, Vision changes H53.[address] [address] Apr, [address] [address] Apr, Bipolar I disorder, most recent episode (or current) depressed, moderate 296.52 ; Other chronic pain 338.29 ; Chronic hepatitis C without mention of hepatic coma 070.54 ; Essential hypertension 401.9 ; Environmental allergies V15.09 and GERD (gastroesophageal reflux disease) 530.81 [place] [id number] [place] [address] Mar, [address] [address] Mar, [address] [address] Mar, [address] [address] Mar, [place] [id number] [place] [address] Mar, [address] [address] Feb, Routine gynecological examination V72.31 ; Breast cancer screening V76.10 and Tobacco abuse 305.[address] [address] Feb, [address] [place] [address] January, [facility] [id number] [place] [address] January, [facility] [address] [place] [address] January, [facility] [id number] [place] [address] January, [facility] [id number] [place] [address] January, Mood disorder 296.90 and Anxiety 300.00 [facility] [id number] [place] [address] January, [facility] [id number] [place] [address] Dec, Headache 784.0 ; Other chronic pain 338.29 and Cervicalgia 723.1 [facility] [address], [place] [address] Dec, [facility] [id number] [place] [address] Dec, [facility] [address], [place] [address] Nov, [facility] [address], [place] [address] Nov, [facility] [address], [place] [address] Oct, [facility] [address], [place] [address] Oct, [facility] [address], [place] [address] Oct, [facility] [address], [place] [address] Oct, [facility] [place] [facility] [address] [id number] [place] [address] Oct, [facility] [place] [facility] [address] [id number] [place] [address] 20 Oct, 2014 [facility] [place] [facility] [address] [id number] [place] [address] Oct, [facility] [place] [facility] [address] [id number] [place] [address] Oct, 2014 [facility] [place] [facility] [address] [id number] [place] [address] Oct, [facility] [place] [facility] [address] [id number] [place] [address] 18 Oct, 2014 [facility] [place] [facility] [address] [id number] [place] [address] Oct, [facility] [place] [facility] [address] [id number] [place] [address] Oct, [facility] [place] [facility] [address] [id number] [place] [address] Sep, [facility] [place] [facility] [address] [id number] [place] [address] Sep, [facility] [place] [facility] [address] [id number], [place] [address] Sep, [facility] [place] [facility] [address] [id number], [place] [address] 15 Sep, 2014 [facility] [place] [facility] [address] [id number] [place] [address] 15 Sep, 2014 [facility] [place] [facility] [address] [id number], [place] [address] 14 Sep, 2014 [facility] [place] [facility] [address] [id number] [place] [address] 14 Sep, 2014 [facility] [place] [facility] [address] [id number] [place] [address] 14 Sep, 2014 [facility] [place] [facility] [address] [id number] [place] [address] Sep, [facility] [place] [facility] [address] [id number] [place] [address] Sep, [facility] [place] [facility] [address] [id number] [place] [address] Sep, [facility] [place] [facility] [address] [id number] [place] [address] Sep, [facility] [place] [facility] [address] [id number] [place] [address] Sep, [facility] [place] [facility] [address] [id number] [place] [address] Sep, [facility] [place] [facility] [address] [id number] [place] [address] Aug, [facility] [place] [facility] [address] [id number] [place] [address] Aug, [facility] [place] [facility] [address] [id number] [place] [address] Aug, [facility] [place] [facility] [address] [id number] [place] [address] Aug, [facility] [place] [facility] [address] [id number] [place] [address] 24 Aug, 2014 [facility] [place] [facility] [address] [id number] [place] [address] Aug, [facility] [place] [facility] [address] [id number] [place] [address] Aug, [facility] [place] [facility] [address] [id number] [place] [address] Aug, [facility] [place] [facility] [address] [id number] [place] [address] Aug, [facility] [place] [facility] [address] [id number] [place] [address] Aug, [facility] [place] [facility] [address] [id number] [place] [address] Aug, [facility] [place] [facility] [address] [id number] [place] [address] Aug, [facility] [place] [facility] [address] [id number] [place] [address] Aug, [facility] [place] [facility] [address] [id number] [place] [address] Jul, [facility] [place] [facility] [address] [id number] [place] [address] Jul, [facility] [place] [facility] [address] [id number] [place] [address] Feb, [facility] [place] [facility] [address] [id number] [place] [address] Feb, [facility] [place] [facility] [address] [id number] [place] [address] January, [facility] [place] [facility] [address] [id number] [place] [address] January, [facility] [place] [facility] [address] [id number] [place] [address] January, [facility] [place] [facility] [address] [id number] [place] [address] January, [facility] [place] [facility] [address] [id number] [place] [address] Nov, [facility] [place] [facility] [address] [id number] [place] [address] Nov, [facility] [place] [facility] [address] [id number] [place] [address] Nov, [facility] [place] [facility] [address] [id number] [place] [address] Nov, [facility] [address] [id number] [place] [address] Oct, [facility] [place] [facility] [address] [id number] [place] [address] Oct, [facility] [place] [facility] [address] [id number] [place] [address] Sep, [facility] [place] [facility] [address] [id number] [place] [address] Sep, [facility] [place] [facility] [address] [id number] [place] [address] Sep, [facility] [place] [facility] [address] [id number] [place] [address] Sep, [facility] [address] [id number] [place] [address] Aug, [facility] [place] [facility] [address] [id number] [place] [address] Aug, [facility] [place] [facility] [address] [id number] [place] [address] Aug, [facility] [place] [facility] [address] [facility] [id number] [place] [address] Aug, [facility] [place] [facility] [address] [id number] [place] [address] Aug, [facility] [place] [facility] [address] [id number] [place] [address] Aug, [facility] [place] [facility] [address] [id number] [place] [address] Aug, [facility] [place] [facility] [address] [id number] [place] [address] Jul, [facility] [place] [facility] [address] [id number] [place] [address] Jul, [facility] [place] [facility] [address] [id number] [place] [address] 19 Jul, 2013 [facility] [place] [facility] [address] [id number] [place] [address] Jul, [facility] [place] [facility] [address] [id number] [place] [address] Jul, [facility] [place] [facility] [address] [id number] [place] [address] Jul, [facility] [place] [facility] [address] [id number] [place] [address] Jul, [facility] [place] [facility] [address] [id number] [place] [address] Jun, [facility] [place] [facility] [address] [id number] [place] [address] Jun, [facility] [place] [facility] [address] [id number] [place] [address] Jun, [facility] [place] [facility] [address] [id number] [place] [address] Jun, [facility] [place] [facility] [address] [id number] [place] [address] Jul, [facility] [place] [facility] [address] [id number] [place] [address] 16 Jul, 2010 [facility] [place] [facility] [address] [id number] [place] [address] Jul, [facility] [place] [facility] [address] [id number] [place] [address] Jul, [facility] [place] [facility] [address] [id number] [place] [address] Jun, [facility] [place] [facility] [address] [id number] [place] [address] 31 Jun, 2009 [facility] [place] [facility] [address] [id number] [place] [address] Jun, [facility] [address] [facility] [id number] [place] [address] Jun, [facility] [address] [id number] [address] Jun, [facility] [address] [facility] [id number], [place] [address] Mar, [facility] [address] [facility] [id number], [place] [address] January, IMMUNIZATIONS No Known Immunizations SOCIAL HISTORY Never Assessed REASON FOR VISIT EMR-[facility] [place] OF CARE VITAL SIGNS MEDICATIONS No [...] History child Hospitalization History low blood pressure--via [facility] 12/2017
--- OUTSIDE RECORDS SUMMARY | 2019-04-09 01:24 | XMS REPORT ---
Author Author Migration, Doctor Organization [facility] [employer] Address Unknown Phone Unavailable Care Team Providers Care Bucket Hooker Name Role Phone Migration, Doctor Unavailable Unavailable PROBLEMS Type Condition ICD9-CM Code [id number] Code Onset Dates Condition Status SNOMED Code Problem Spinal stenosis of thoracolumbar region M48.05 Active 84667296 Problem Other idiopathic scoliosis, thoracolumbar region M41.25 Active 451086817 Problem Chronic pain G89.29 Active 32025534 Problem 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 Active 62733121 Problem Hypertension I10 Active 82723175 Problem Chronic headaches R51 Active 352892226 Problem Dyslipidemia E78.5 Active 968814680 Problem DDD (degenerative disc disease), thoracolumbar M51.35 Active 40985649 Problem GERD (gastroesophageal reflux disease) K21.9 Active 921402296 Problem Acute right hip pain M25.551 Active 32456681 Problem Environmental allergies Z91.09 Active 678934705 Problem Tobacco abuse Z72.0 Active 69924226 Problem Obsessive-compulsive disorder, unspecified type F42.9 Active 627082732 Problem Bipolar I disorder F31.9 Active 515412936 Problem Spondylosis of cervical region without myelopathy or radiculopathy M47.812 Active 013981400 ALLERGIES No Information ENCOUNTERS Encounter Location Date Diagnosis [facility] [place] [id number] [id number] Dec, Spinal stenosis of thoracolumbar region M48.05 ; DDD (degenerative disc disease), thoracolumbar M51.35 ; Spondylosis of cervical region without myelopathy or radiculopathy M47.812 ; Chronic pain G89.29 ; Acute right hip pain M25.551 and Depression F32.9 [facility] [place] [address] [facility] [id number] Logistics TechnologyPINGREE, [place] [id number] Dec, Chronic pain G89.29 [facility] [place] [address] [id number] [place] [id number] Nov, [facility] [place] [address] [id number] [place] [id number] Nov, Chronic pain G89.29 [facility] [place] [address] [id number] [place] [address] Nov, [facility] [place] [address] [id number] [place] [address] Oct, [facility] [place] [address] [id number] [place] [id number] Oct, Chronic pain G89.29 [facility] [place] [address] [id number] [place] [address] Sep, Chronic pain G89.29 [facility] [place] [address] [id number] [place] [id number] Sep, [facility] [place] [address] [id number] [place] [address] Sep, Otitis media H66.90 and URI (upper respiratory infection) J06.9 [facility] [place] [address] [id number] [place] [address] Aug, Chronic pain G89.29 [facility] [place] [address] [id number] [place] [id number] Aug, 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 [facility] [place] [address] [id number] [place] [address] Aug, Sinusitis J32.9 and Nausea R11.0 [facility] [place] [address] [id number] [place] [address] Aug, Chronic pain G89.29 ; Spondylosis of cervical region without myelopathy or radiculopathy M47.812 and DDD (degenerative disc disease), thoracolumbar M51.35 [facility] [place] [address] [id number] [place] [address] Aug, Bipolar I disorder F31.9 [facility] [place] [address] [id number] [place] [address] Aug, Bipolar I disorder F31.9 and Obsessive-compulsive disorder, unspecified type F42.9 [facility] [place] [address] [id number] [place] [address] Jul, Chronic pain G89.29 [facility] [place] [address] [id number] [address] Jul, [facility] [place] [id number] [address] Jul, Bipolar I disorder F31.9 and Obsessive-compulsive disorder, unspecified type F42.9 [facility] [place] [id number][place] [address] Jul, GERD (gastroesophageal reflux disease) K21.9 ; Hypertension I10 ; 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 ; Chronic pain G89.29 ; Dyslipidemia E78.5 ; Environmental allergies Z91.09 and Encounter for immunization Z23 [address]005[address] [address] Jun, Chronic pain G89.29 [address]00565100[place] [address] Jun, [address]00565100[place] [address] Jun, [address]00565100[place] [address] Jun, Dyslipidemia E78.5 [address]65100[place] [address] Jun, Chronic pain G89.29 [address]65100[place] [address] May, [address]00565100[place] [address] May, Chronic pain G89.29 ; Tobacco abuse Z72.0 ; High risk medication use Z79.899 ; Dyslipidemia E78.5 ; Hepatitis C B19.20 ; Hypertension I10 ; Environmental allergies Z91.09 ; Anxiety F41.9 ; 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 and GERD (gastroesophageal reflux disease) K21.9 [facility] [address] [id number] [address] Apr, Chronic pain G89.29 [facility] [address] [address] Mar, Costochondral separation, initial encounter S23.29XA and Injury of toe on left foot, initial encounter S99.922A [address] [id number] Mar, Chronic pain G89.29 [facility] [address] [address] Feb, Poison elda L23.[address] [id number] Feb, Chronic pain G89.29 [place] [address] [address] Feb, Bronchitis J40 [address] [id number] Feb, [address] [id number] Feb, Chronic pain G89.[address] [id number] January, Vaginal discharge N89.8 ; Increased urinary frequency R35.0 ; Acute cystitis with hematuria N30.01 ; Other specified bacterial agents as the cause of diseases classified elsewhere B96.89 and Acute vaginitis N76.[address] [id number] January, Chronic pain G89.29 and Candidiasis B37.9 [facility] [address] [address] January, [facility] [address] [address] Dec, Acute frontal sinusitis, recurrence not specified J01.10 and Cough R05 [address] [id number] Dec, [address] [id number] Nov, [place] [address]00565100[place], [place] [address] Nov, Bronchitis J40 [facility] [address] [id number] [address] Nov, [facility] [id number] [place] [address] Oct, COPD with acute exacerbation J44.1 [facility] [id number] [place] [id number] Oct, Chronic pain G89.29 [facility] [id number] [place] [id number] Oct, [facility] [id number] [place] [id number] Sep, Chronic pain G89.29 ; Depression F32.9 ; Anxiety F41.9 ; 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 and Flu-like symptoms R68.89 [facility] [employer] [id number] [place] [address] Aug, Chronic pain G89.29 ; Open bite of other finger without damage to nail, initial encounter S61.258A and Bitten by dog, initial encounter W54.0XX[address] [place] [id number] [place] [address] Jul, Menopause Z78.0 ; Ankle swelling, unspecified laterality M25.473 ; Chronic pain G89.29 and Tobacco abuse Z72.0 [facility] [address]00565100[place], [place] [address] Jun, [facility] [id number] [place] [address] Jun, Chronic pain G89.29 [facility] [id number] [place] [address] May, Dysuria R30.0 ; Dehydration E86.0 and Hypertension I10 [place] [address] [address] 19 May, 2017 Menopause Z78.0 ; Depression F32.9 ; Chronic pain G89.29 ; Environmental allergies Z91.09 ; 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 and Encounter for immunization Z23 [facility] [address] [place] [address] 18 May, 2017 Chronic pain G89.29 [facility] [id number] [place] [address] Apr, Chronic pain G89.29 [facility] [id number] [place] [address] Apr, Routine gynecological examination Z01.419 [place] [id number] [place] [address] Mar, Chronic pain G89.29 [facility] [id number] [place] [address] Feb, [facility] [id number] [place] [address] Feb, Chronic pain G89.29 [facility] [id number] [place] [address] Feb, [facility] [id number] [place] [address] January, Chronic pain G89.29 [facility] [id number] [place] [address] January, Routine gynecological examination Z01.419 and Breast cancer screening Z12.39 [facility] [id number] [place] [address] January, Chronic pain G89.29 [facility] [id number] [place] [address] Dec, Postmenopausal HRT (hormone replacement therapy) Z79.890 [facility] [id number] [place] [address] Dec, [facility] [id number] [place] [address] Nov, Chronic pain G89.29 [facility] [id number] [place] [address] 30 Nov, 2016 Chronic headaches R51 ; [...] finger, with routine healing, subsequent encounter S62.639D [facility] [id number] [place] [address] 15 Nov, 2016 [facility] [id number] [place] [address] Nov, [facility] [id number] [place] [address] Nov, [facility] [id number] [place] [address] 08 Nov, 2016 Hypertension I10 [facility] [id number] [place] [address] Nov, [facility] [id number] [place] [address] Nov, [facility] [id number] [place] [address] Oct, Anxiety F41.9 [facility] [id number] [place] [address] Oct, [facility] [id number] [place] [address] Oct, Acute upper respiratory infection, unspecified J06.9 and Other viral agents as the cause of diseases classified elsewhere B97.89 [facility] [id number] [place] [address] Oct, [facility] [id number] [place] [address] Oct, Right acute serous otitis media, recurrence not specified H65.01 and Pharyngitis, unspecified etiology J02.9 [facility] [id number] [place] [address] Sep, [facility] [id number] [place] [address] Aug, Environmental allergies Z91.09 [facility] [id number] [place] [address] Aug, [facility] [id number] [place] [address] Jul, Atypical nevi D22.9 [facility] [id number] [place] [address] Jul, [facility] [id number] [place] [address] Jul, [facility] [address] [place] [address] Jul, [facility] [id number] [place] [address] Jun, [facility] [id number] [place] [address] May, [facility] [id number] [place] [address] May, [facility] [id number] [place] [address] May, [facility] [address] [place] [address] Apr, [place] [id number] [place] [address] Apr, Chronic headaches R51 ; GERD (gastroesophageal reflux disease) K21.9 ; Hypertension I10 ; 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 ; Anxiety F41.9 ; COPD with acute exacerbation J44.1 ; Environmental allergies Z91.09 ; Depression F32.9 and Chronic pain G89.29 [place] [address] [address] Feb, Chronic headaches R51 and Chronic pain G89.29 [address] [address] [address] January, Chronic pain G89.29 and Anxiety F41.9 [address] [address] [address] January, Depression F32.9 and Hypertension I10 [place] [address] [address] January, Chronic pain G89.29 [address] [address] [address] Dec, [address] [address] [address] Dec, [address] [address] [address] Dec, Chronic headaches R51 ; Chronic pain G89.29 ; Environmental allergies Z91.09 ; GERD (gastroesophageal reflux disease) K21.9 ; Insomnia G47.00 ; Hypertension I10 and COPD with acute exacerbation J44.1 [place] [address] [address] Dec, [place] [address] [address] Dec, Chest pain R07.9 ; GERD (gastroesophageal reflux disease) K21.9 and Nausea R11.0 [place] [id number] [place] [address] Nov, [place] [id number] [place] [address] 24 Oct, 2015 COPD with acute exacerbation J44.1 ; Chronic headaches R51 ; GERD (gastroesophageal reflux disease) K21.9 ; Insomnia G47.00 ; Hypertension I10 ; Depression F32.9 and Anxiety F41.9 [place] [id number] [place] [address] Oct, [place] [address] [address] Oct, [place] [address] [address] Oct, [place] [id number] [place] [address] Oct, [place] [id number] [place] [address] Oct, Flu-like symptoms R68.89 and COPD with acute exacerbation J44.1 [place] [id number] [place] [address] Oct, [place] [id number] [place] [address] Oct, Left shoulder pain M25.512 ; Chronic headaches R51 ; Environmental allergies Z91.09 ; GERD (gastroesophageal reflux disease) K21.9 ; Insomnia G47.00 ; Hypertension I10 ; Depression F32.9 and 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 [place] [id number] [place] [address] Sep, [place] [id number] [place] [address] Sep, COPD (chronic obstructive pulmonary disease) J44.9 [address] [address] Sep, Bronchitis J40 [address] [address] Aug, Cervicalgia 723.1 ; Chronic hepatitis C without mention of hepatic coma 070.54 ; Essential hypertension 401.9 ; Chronic headaches R51 ; Environmental allergies Z91.09 ; GERD (gastroesophageal reflux disease) K21.9 ; Insomnia G47.00 ; Depression F32.9 and COPD (chronic obstructive pulmonary disease) J44.[address] [address] Jul, Essential hypertension 401.9 ; Hypertension I10 ; Depression F32.9 ; Anxiety F41.9 ; Chronic headaches R51 and Cervicalgia M54.[address] [address] Jul, Essential hypertension 401.9 and Anxiety F41.[address] [address] Jul, [address] [address] Jul, [address] [address] Jul, Insomnia G47.00 ; GERD (gastroesophageal reflux disease) K21.9 ; Essential hypertension 401.9 ; Bipolar I disorder, most recent episode (or current) depressed, moderate 296.52 ; Hepatitis C B19.20 ; Depression F32.9 ; Hypertension I10 ; 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 ; Chronic headaches R51 and Chronic pain G89.[address] [address] Jun, [address] [address] Jun, Chronic headaches R51 ; Environmental allergies Z91.09 ; GERD (gastroesophageal reflux disease) K21.9 ; Insomnia G47.00 ; Hepatitis C B19.20 ; Hypertension I10 ; Depression F32.9 ; 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 and Chronic pain G89.29 [place] [id number] [place] [address] Jun, [address] [address] Jun, Vision changes H53.[address] [address] Apr, [address] [address] Apr, Bipolar I disorder, most recent episode (or current) depressed, moderate 296.52 ; Other chronic pain 338.29 ; Chronic hepatitis C without mention of hepatic coma 070.54 ; Essential hypertension 401.9 ; Environmental allergies V15.09 and GERD (gastroesophageal reflux disease) 530.81 [place] [id number] [place] [address] Mar, [address] [address] Mar, [address] [address] Mar, [address] [address] Mar, [place] [id number] [place] [address] Mar, [address] [address] Feb, Routine gynecological examination V72.31 ; Breast cancer screening V76.10 and Tobacco abuse 305.[address] [address] Feb, [address] [place] [address] January, [facility] [address] [place] [address] January, [facility] [address] [place] [address] January, [facility] [id number] [place] [address] January, [facility] [id number] [place] [address] January, Mood disorder 296.90 and Anxiety 300.00 [facility] [id number] [place] [address] January, [facility] [id number] [place] [address] Dec, Headache 784.0 ; Other chronic pain 338.29 and Cervicalgia 723.1 [facility] [address] [address] Dec, [facility] [id number] [place] [address] Dec, [facility] [address] [address] Nov, [facility] [address] [address] Nov, [facility] [address] [address] Oct, [facility] [address] [address] Oct, [facility] [address] [address] Oct, [facility] [address], [place] [address] Oct, [facility] [place] [facility] [address] [id number] [place] [address] Oct, [facility] [place] [facility] [address] [id number] [place] [address] 20 Oct, 2014 [facility] [place] [facility] [address] [id number] [place] [address] Oct, [facility] [place] [facility] [address] [id number] [place] [address] Oct, 2014 [facility] [place] [facility] [address] [id number] [place] [address] Oct, [facility] [place] [facility] [address] [id number] [place] [address] 18 Oct, 2014 [facility] [place] [facility] [address] [id number] [place] [address] Oct, [facility] [place] [facility] [address] [id number] [place] [address] Oct, [facility] [place] [facility] [address] [id number] [place] [address] Sep, [facility] [place] [facility] [address] [id number] [place] [address] Sep, [facility] [place] [facility] [address] [id number] [address] Sep, [facility] [place] [facility] [address] [id number] [address] 15 Sep, 2014 [facility] [place] [facility] [address] [id number] [place] [address] 15 Sep, 2014 [facility] [place] [facility] [address] [id number] [address] 14 Sep, 2014 [facility] [place] [facility] [address] [id number] [place] [address] 14 Sep, 2014 [facility] [place] [facility] [address] [id number] [place] [address] 14 Sep, 2014 [facility] [place] [facility] [address] [id number] [place] [address] Sep, [facility] [place] [facility] [address] [id number] [place] [address] Sep, [facility] [place] [facility] [address] [id number] [place] [address] Sep, [facility] [place] [facility] [address] [id number] [place] [address] Sep, [facility] [place] [facility] [address] [id number] [place] [address] Sep, [facility] [place] [facility] [address] [id number] [place] [address] Sep, [facility] [place] [facility] [address] [id number] [place] [address] Aug, [facility] [place] [facility] [address] [id number] [place] [address] Aug, [facility] [place] [facility] [address] [id number] [place] [address] Aug, [facility] [place] [facility] [address] [id number] [place] [address] Aug, [facility] [place] [facility] [address] [id number] [place] [address] 24 Aug, 2014 [facility] [place] [facility] [address] [id number] [place] [address] Aug, [facility] [place] [facility] [address] [id number] [place] [address] Aug, [facility] [place] [facility] [address] [id number] [place] [address] Aug, [facility] [place] [facility] [address] [id number] [place] [address] Aug, [facility] [place] [facility] [address] [id number] [place] [address] Aug, [facility] [place] [facility] [address] [id number] [place] [address] Aug, [facility] [place] [facility] [address] [id number] [place] [address] Aug, [facility] [place] [facility] [address] [id number] [place] [address] Aug, [facility] [place] [facility] [address] [id number] [place] [address] Jul, [facility] [place] [facility] [address] [id number] [place] [address] Jul, [facility] [place] [facility] [address] [id number] [place] [address] Feb, [facility] [place] [facility] [address] [id number] [place] [address] Feb, [facility] [place] [facility] [address] [id number] [place] [address] January, [facility] [place] [facility] [address] [id number] [place] [address] January, [facility] [place] [facility] [address] [id number] [place] [address] January, [facility] [place] [facility] [address] [id number] [place] [address] January, [facility] [place] [facility] [address] [id number] [place] [address] Nov, [facility] [place] [facility] [address] [id number] [place] [address] Nov, [facility] [place] [facility] [address] [id number] [place] [address] Nov, [facility] [place] [facility] [address] [id number] [place] [address] Nov, [facility] [address] [id number] [place] [address] Oct, [facility] [place] [facility] [address] [id number] [place] [address] Oct, [facility] [place] [facility] [address] [id number] [place] [address] Sep, [facility] [place] [facility] [address] [id number] [place] [address] Sep, [facility] [place] [facility] [address] [id number] [place] [address] Sep, [facility] [place] [facility] [address] [id number] [place] [address] Sep, [facility] [address] [id number] [place] [address] Aug, [facility] [place] [facility] [address] [id number] [place] [address] Aug, [facility] [place] [facility] [address] [id number] [place] [address] Aug, [facility] [place] [facility] [address] [facility] [id number] [place] [address] Aug, [facility] [place] [facility] [address] [id number] [place] [address] Aug, [facility] [place] [facility] [address] [id number] [place] [address] Aug, [facility] [place] [facility] [address] [id number] [place] [address] Aug, [facility] [place] [facility] [address] [id number] [place] [address] Jul, [facility] [place] [facility] [address] [id number] [place] [address] Jul, [facility] [place] [facility] [address] [id number] [place] [address] 19 Jul, 2013 [facility] [place] [facility] [address] [id number] [place] [address] Jul, [facility] [place] [facility] [address] [id number] [place] [address] Jul, [facility] [place] [facility] [address] [id number] [place] [address] Jul, [facility] [place] [facility] [address] [id number] [place] [address] Jul, [facility] [place] [facility] [address] [id number] [place] [address] Jun, [facility] [place] [facility] [address] [id number] [place] [address] Jun, [facility] [place] [facility] [address] [id number] [place] [address] Jun, [facility] [place] [facility] [address] [id number] [place] [address] Jun, [facility] [place] [facility] [address] [id number] [place] [address] Jul, [facility] [place] [facility] [address] [id number] [place] [address] 16 Jul, 2010 [facility] [place] [facility] [address] [id number] [place] [address] Jul, [facility] [place] [facility] [address] [id number] [place] [address] Jul, [facility] [place] [facility] [address] [id number] [place] [address] Jun, [facility] [place] [facility] [address] [id number] [place] [address] 31 Jun, 2009 [facility] [place] [facility] [address] [id number] [place] [address] Jun, [facility] [address] [facility] [id number] [place] [address] Jun, [facility] [address] [id number] [address] Jun, [facility] [address] [facility] [id number] [address] Mar, [facility] [address] [facility] [id number] [address] January, IMMUNIZATIONS No Known Immunizations SOCIAL HISTORY Never Assessed REASON FOR VISIT EMR-[facility] PLAN OF CARE VITAL SIGNS MEDICATIONS No [...] History child Hospitalization History low blood pressure--[facility] 12/2017
--- OUTSIDE RECORDS SUMMARY | 2019-04-09 01:25 | XMS REPORT ---
Author Author Migration, Doctor [facility] Address Unknown Phone Unavailable Care Team Providers Care Junk Removal Specialist Name Role Phone Migration, Doctor Unavailable Unavailable PROBLEMS Type Condition ICD9-CM Code [id number] Code Onset Dates Condition Status SNOMED Code Problem Spinal stenosis of thoracolumbar region M48.05 Active 76132718 Problem Other idiopathic scoliosis, thoracolumbar region M41.25 Active 593313291 Problem Chronic pain G89.29 Active 83328916 Problem 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 Active 68477296 Problem Hypertension I10 Active 63131377 Problem Chronic headaches R51 Active 470625355 Problem Dyslipidemia E78.5 Active 389019133 Problem DDD (degenerative disc disease), thoracolumbar M51.35 Active 95853496 Problem GERD (gastroesophageal reflux disease) K21.9 Active 788257990 Problem Acute right hip pain M25.551 Active 23157159 Problem Environmental allergies Z91.09 Active 047287751 Problem Tobacco abuse Z72.0 Active 33086685 Problem Obsessive-compulsive disorder, unspecified type F42.9 Active 419773847 Problem Bipolar I disorder F31.9 Active 509009551 Problem Spondylosis of cervical region without myelopathy or radiculopathy M47.812 Active 985846683 ALLERGIES No Information ENCOUNTERS Encounter Location Date Diagnosis [facility] [place] [id number] [id number] Dec, Spinal stenosis of thoracolumbar region M48.05 ; DDD (degenerative disc disease), thoracolumbar M51.35 ; Spondylosis of cervical region without myelopathy or radiculopathy M47.812 ; Chronic pain G89.29 ; Acute right hip pain M25.551 and Depression F32.9 [facility] [place] [address] [facility] [id number] Information [place] [id number] Dec, Chronic pain G89.29 [facility] [place] [address] [id number] [place] [id number] Nov, [facility] [place] [address] [id number] [place] [id number] Nov, Chronic pain G89.29 [facility] [place] [address] [id number] [place] [id number] Nov, [facility] [place] [address] [id number] [place] [id number] Oct, [facility] [place] [address] [id number] [place] [address] Oct, Chronic pain G89.29 [facility] [place] [address] [id number] [place] [id number] Sep, Chronic pain G89.29 [facility] [place] [address] [id number] [place] [address] Sep, [facility] [place] [address] [id number] [place] [address] Sep, Otitis media H66.90 and URI (upper respiratory infection) J06.9 [facility] [place] [address] [id number] [place] [address] Aug, Chronic pain G89.29 [facility] [place] [address] [id number] [place] [address] Aug, 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 [facility] [place] [address] [id number] [place] [address] Aug, Sinusitis J32.9 and Nausea R11.0 [facility] [place] [address] [id number] [place] [address] Aug, Chronic pain G89.29 ; Spondylosis of cervical region without myelopathy or radiculopathy M47.812 and DDD (degenerative disc disease), thoracolumbar M51.35 [facility] [place] [address] [id number] [place] [id number] Aug, Bipolar I disorder F31.9 [facility] [place] [address] [id number] [place] [address] Aug, Bipolar I disorder F31.9 and Obsessive-compulsive disorder, unspecified type F42.9 [facility] [place] [address] [id number] [place] [id number] Jul, Chronic pain G89.29 [facility] [place] [address] [id number] [address] Jul, [facility] [place] [id number], [place] [address] Jul, Bipolar I disorder F31.9 and Obsessive-compulsive disorder, unspecified type F42.9 [facility] [place] [id number] [address] Jul, GERD (gastroesophageal reflux disease) K21.9 ; Hypertension I10 ; 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 ; Chronic pain G89.29 ; Dyslipidemia E78.5 ; Environmental allergies Z91.09 and Encounter for immunization Z23 [address] [id number] Jun, Chronic pain G89.[address] [address] Jun, [address]005[address]100[place] [address] Jun, [address] [address] Jun, Dyslipidemia E78.[address] [address] Jun, Chronic pain G89.[address] [address] May, [address] [address] May, Chronic pain G89.29 ; Tobacco abuse Z72.0 ; High risk medication use Z79.899 ; Dyslipidemia E78.5 ; Hepatitis C B19.20 ; Hypertension I10 ; Environmental allergies Z91.09 ; Anxiety F41.9 ; 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 and GERD (gastroesophageal reflux disease) K21.9 [facility] [address] [id number] [address] Apr, Chronic pain G89.29 [facility] [address] [address] Mar, Costochondral separation, initial encounter S23.29XA and Injury of toe on left foot, initial encounter S99.922A [address] [id number] Mar, Chronic pain G89.29 [facility] [address] [address] Feb, Poison elda L23.[address] [id number] Feb, Chronic pain G89.29 [place] [address] [address] Feb, Bronchitis J40 [address] [id number] Feb, [address] [id number] Feb, Chronic pain G89.[address] [id number] January, Vaginal discharge N89.8 ; Increased urinary frequency R35.0 ; Acute cystitis with hematuria N30.01 ; Other specified bacterial agents as the cause of diseases classified elsewhere B96.89 and Acute vaginitis N76.[address] [id number] January, Chronic pain G89.29 and Candidiasis B37.9 [facility] [address] [address] January, [facility] [address] [address] Dec, Acute frontal sinusitis, recurrence not specified J01.10 and Cough R05 [address] [id number] Dec, [address] [id number] Nov, [address] [address] Nov, Bronchitis J40 [facility] [address] [id number] [address] Nov, [facility] [id number] [place] [address] Oct, COPD with acute exacerbation J44.1 [facility] [id number] [place] [id number] Oct, Chronic pain G89.29 [facility] [id number] [place] [id number] Oct, [facility] [id number] [place] [id number] Sep, Chronic pain G89.29 ; Depression F32.9 ; Anxiety F41.9 ; 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 and Flu-like symptoms R68.89 [facility] [employer] [place] [id number] [place] [address] Aug, Chronic pain G89.29 ; Open bite of other finger without damage to nail, initial encounter S61.258A and Bitten by dog, initial encounter W54.0XXA [id number] [place] [address] Jul, Menopause Z78.0 ; Ankle swelling, unspecified laterality M25.473 ; Chronic pain G89.29 and Tobacco abuse Z72.0 [facility] [address]00565100[place] [address] Jun, [facility] [id number] [place] [address] Jun, Chronic pain G89.29 [facility] [id number] [place] [address] May, Dysuria R30.0 ; Dehydration E86.0 and Hypertension I10 [place] [address] [address] 19 May, 2017 Menopause Z78.0 ; Depression F32.9 ; Chronic pain G89.29 ; Environmental allergies Z91.09 ; 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 and Encounter for immunization Z23 [facility] [address] [place] [address] 18 May, 2017 Chronic pain G89.29 [facility] [id number] [place] [address] Apr, Chronic pain G89.29 [facility] [id number] [place] [address] Apr, Routine gynecological examination Z01.419 [place] [id number] [place] [address] Mar, Chronic pain G89.29 [facility] [id number] [place] [address] Feb, [facility] [id number] [place] [address] Feb, Chronic pain G89.29 [facility] [id number] [place] [address] Feb, [facility] [id number] [place] [address] January, Chronic pain G89.29 [facility] [id number] [place] [address] January, Routine gynecological examination Z01.419 and Breast cancer screening Z12.39 [facility] [id number] [place] [address] January, Chronic pain G89.29 [facility] [id number] [place] [address] Dec, Postmenopausal HRT (hormone replacement therapy) Z79.890 [facility] [id number] [place] [address] Dec, [facility] [id number] [place] [address] Nov, Chronic pain G89.29 [facility] [id number] [place] [address] 30 Nov, 2016 Chronic headaches R51 ; [...] finger, with routine healing, subsequent encounter S62.639D [facility] [id number] [place] [address] 15 Nov, 2016 [facility] [id number] [place] [address] Nov, [facility] [id number] [place] [address] Nov, [facility] [id number] [place] [address] 08 Nov, 2016 Hypertension I10 [facility] [id number] [place] [address] Nov, [facility] [id number] [place] [address] Nov, [facility] [id number] [place] [address] Oct, Anxiety F41.9 [facility] [id number] [place] [address] Oct, [facility] [id number] [place] [address] Oct, Acute upper respiratory infection, unspecified J06.9 and Other viral agents as the cause of diseases classified elsewhere B97.89 [facility] [id number] [place] [address] Oct, [facility] [id number] [place] [address] Oct, Right acute serous otitis media, recurrence not specified H65.01 and Pharyngitis, unspecified etiology J02.9 [facility] [id number] [place] [address] Sep, [facility] [id number] [place] [address] Aug, Environmental allergies Z91.09 [facility] [id number] [place] [address] Aug, [facility] [id number] [place] [address] Jul, Atypical nevi D22.9 [facility] [id number] [place] [address] Jul, [facility] [id number] [place] [address] Jul, [facility] [id number] [place] [address] Jul, [facility] [id number] [place] [address] Jun, [facility] [id number] [place] [address] May, [facility] [id number] [place] [address] May, [facility] [id number] [place] [address] May, [facility] [id number] [place] [address] Apr, [place] [id number] [place] [address] Apr, Chronic headaches R51 ; GERD (gastroesophageal reflux disease) K21.9 ; Hypertension I10 ; 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 ; Anxiety F41.9 ; COPD with acute exacerbation J44.1 ; Environmental allergies Z91.09 ; Depression F32.9 and Chronic pain G89.29 [place] [address] [address] Feb, Chronic headaches R51 and Chronic pain G89.29 [address] [address] [address] January, Chronic pain G89.29 and Anxiety F41.9 [address] [address] [address] January, Depression F32.9 and Hypertension I10 [place] [address] [address] January, Chronic pain G89.29 [address] [address] [address] Dec, [address] [address] [address] Dec, [address] [address] [address] Dec, Chronic headaches R51 ; Chronic pain G89.29 ; Environmental allergies Z91.09 ; GERD (gastroesophageal reflux disease) K21.9 ; Insomnia G47.00 ; Hypertension I10 and COPD with acute exacerbation J44.1 [address] [address] [address] Dec, [address] [address] [address] Dec, Chest pain R07.9 ; GERD (gastroesophageal reflux disease) K21.9 and Nausea R11.0 [place] [id number] [place] [address] Nov, [place] [id number] [place] [address] 24 Oct, 2015 COPD with acute exacerbation J44.1 ; Chronic headaches R51 ; GERD (gastroesophageal reflux disease) K21.9 ; Insomnia G47.00 ; Hypertension I10 ; Depression F32.9 and Anxiety F41.9 [place] [id number] [place] [address] Oct, [place] [address] [address] Oct, [place] [address] [address] Oct, [id number] [place] [address] Oct, [id number] [place] [address] Oct, Flu-like symptoms R68.89 and COPD with acute exacerbation J44.1 [id number] [place] [address] Oct, [id number] [place] [address] Oct, Left shoulder pain M25.512 ; Chronic headaches R51 ; Environmental allergies Z91.09 ; GERD (gastroesophageal reflux disease) K21.9 ; Insomnia G47.00 ; Hypertension I10 ; Depression F32.9 and 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 [address] [id number] [place] [address] Sep, [id number] [place] [address] Sep, COPD (chronic obstructive pulmonary disease) J44.9 [address] [address] Sep, Bronchitis J[address] [address] Aug, Cervicalgia 723.1 ; Chronic hepatitis C without mention of hepatic coma 070.54 ; Essential hypertension 401.9 ; Chronic headaches R51 ; Environmental allergies Z91.09 ; GERD (gastroesophageal reflux disease) K21.9 ; Insomnia G47.00 ; Depression F32.9 and COPD (chronic obstructive pulmonary disease) J44.[address] [address] Jul, Essential hypertension 401.9 ; Hypertension I10 ; Depression F32.9 ; Anxiety F41.9 ; Chronic headaches R51 and Cervicalgia M54.[address] [address] Jul, Essential hypertension 401.9 and Anxiety F41.[address] [address] Jul, [address] [address] Jul, [address] [address] Jul, Insomnia G47.00 ; GERD (gastroesophageal reflux disease) K21.9 ; Essential hypertension 401.9 ; Bipolar I disorder, most recent episode (or current) depressed, moderate 296.52 ; Hepatitis C B19.20 ; Depression F32.9 ; Hypertension I10 ; 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 ; Chronic headaches R51 and Chronic pain G89.[address] [address] Jun, [address] [address] Jun, Chronic headaches R51 ; Environmental allergies Z91.09 ; GERD (gastroesophageal reflux disease) K21.9 ; Insomnia G47.00 ; Hepatitis C B19.20 ; Hypertension I10 ; Depression F32.9 ; 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 and Chronic pain G89.29 [id number] [place] [address] Jun, [address] [address] Jun, Vision changes H53.[address] [address] Apr, [address] [address] Apr, Bipolar I disorder, most recent episode (or current) depressed, moderate 296.52 ; Other chronic pain 338.29 ; Chronic hepatitis C without mention of hepatic coma 070.54 ; Essential hypertension 401.9 ; Environmental allergies V15.09 and GERD (gastroesophageal reflux disease) 530.81 [address] [id number] [place] [address] Mar, [address] [address] Mar, [address] [address] Mar, [address] [address] Mar, [address] [id number] [place] [address] Mar, [address] [address] Feb, Routine gynecological examination V72.31 ; Breast cancer screening V76.10 and Tobacco abuse 305.[address] [address] Feb, [address] [place] [address] January, [facility] [address] [place] [address] January, [facility] [address] [place] [address] January, [facility] [id number] [place] [address] January, [facility] [id number] [place] [address] January, Mood disorder 296.90 and Anxiety 300.00 [facility] [id number] [place] [address] January, [facility] [id number] [place] [address] Dec, Headache 784.0 ; Other chronic pain 338.29 and Cervicalgia 723.1 [facility] [address] [address] Dec, [facility] [id number] [place] [address] Dec, [facility] [address] [address] Nov, [facility] [address] [address] Nov, [facility] [address] [address] Oct, [facility] [address] [address] Oct, [facility] [address] [address] Oct, [facility] [address] [address] Oct, [facility] [place] [facility] [address] [id number] [place] [address] Oct, [facility] [place] [facility] [address] [id number] [place] [address] 20 Oct, 2014 [facility] [place] [facility] [address] [id number] [place] [address] Oct, [facility] [place] [facility] [address] [id number] [place] [address] Oct, 2014 [facility] [place] [facility] [address] [id number] [place] [address] Oct, [facility] [place] [facility] [address] [id number] [place] [address] 18 Oct, 2014 [facility] [place] [facility] [address] [id number] [place] [address] Oct, [facility] [place] [facility] [address] [id number] [place] [address] Oct, [facility] [place] [facility] [address] [id number] [place] [address] Sep, [facility] [place] [facility] [address] [id number] [place] [address] Sep, [facility] [place] [facility] [address] [id number] [address] Sep, [facility] [place] [facility] [address] [id number] [address] 15 Sep, 2014 [facility] [place] [facility] [address] [id number] [place] [address] 15 Sep, 2014 [facility] [place] [facility] [address] [id number] [address] 14 Sep, 2014 [facility] [place] [facility] [address] [id number] [place] [address] 14 Sep, 2014 [facility] [place] [facility] [address] [id number] [place] [address] 14 Sep, 2014 [facility] [place] [facility] [address] [id number] [place] [address] Sep, [facility] [place] [facility] [address] [id number] [place] [address] Sep, [facility] [place] [facility] [address] [id number] [place] [address] Sep, [facility] [place] [facility] [address] [id number] [place] [address] Sep, [facility] [place] [facility] [address] [id number] [place] [address] Sep, [facility] [place] [facility] [address] [id number] [place] [address] Sep, [facility] [place] [facility] [address] [id number] [place] [address] Aug, [facility] [place] [facility] [address] [id number] [place] [address] Aug, [facility] [place] [facility] [address] [id number] [place] [address] Aug, [facility] [place] [facility] [address] [id number] [place] [address] Aug, [facility] [place] [facility] [address] [id number] [place] [address] 24 Aug, 2014 [facility] [place] [facility] [address] [id number] [place] [address] Aug, [facility] [place] [facility] [address] [id number] [place] [address] Aug, [facility] [place] [facility] [address] [id number] [place] [address] Aug, [facility] [place] [facility] [address] [id number] [place] [address] Aug, [facility] [place] [facility] [address] [id number] [place] [address] Aug, [facility] [place] [facility] [address] [id number] [place] [address] Aug, [facility] [place] [facility] [address] [id number] [place] [address] Aug, [facility] [place] [facility] [address] [id number] [place] [address] Aug, [facility] [place] [facility] [address] [id number] [place] [address] Jul, [facility] [place] [facility] [address] [id number] [place] [address] Jul, [facility] [place] [facility] [address] [id number] [place] [address] Feb, [facility] [place] [facility] [address] [id number] [place] [address] Feb, [facility] [place] [facility] [address] [id number] [place] [address] January, [facility] [place] [facility] [address] [id number] [place] [address] January, [facility] [place] [facility] [address] [id number] [place] [address] January, [facility] [place] [facility] [address] [id number] [place] [address] January, [facility] [place] [facility] [address] [id number] [place] [address] Nov, [facility] [place] [facility] [address] [id number] [place] [address] Nov, [facility] [place] [facility] [address] [id number] [place] [address] Nov, [facility] [place] [facility] [address] [id number] [place] [address] Nov, [facility] [address] [id number] [place] [address] Oct, [facility] [place] [facility] [address] [id number] [place] [address] Oct, [facility] [place] [facility] [address] [id number] [place] [address] Sep, [facility] [place] [facility] [address] [id number] [place] [address] Sep, [facility] [place] [facility] [address] [id number] [place] [address] Sep, [facility] [place] [facility] [address] [id number] [place] [address] Sep, [facility] [address] [id number] [place] [address] Aug, [facility] [place] [facility] [address] [id number] [place] [address] Aug, [facility] [place] [facility] [address] [id number] [place] [address] Aug, [facility] [place] [facility] [address] [facility] [id number] [place] [address] Aug, [facility] [place] [facility] [address] [id number] [place] [address] Aug, [facility] [place] [facility] [address] [id number] [place] [address] Aug, [facility] [place] [facility] [address] [id number] [place] [address] Aug, [facility] [place] [facility] [address] [id number] [place] [address] Jul, [facility] [place] [facility] [address] [id number] [place] [address] Jul, [facility] [place] [facility] [address] [id number] [place] [address] 19 Jul, 2013 [facility] [place] [facility] [address] [id number] [place] [address] Jul, [facility] [place] [facility] [address] [id number] [place] [address] Jul, [facility] [place] [facility] [address] [id number] [place] [address] Jul, [facility] [place] [facility] [address] [id number] [place] [address] Jul, [facility] [place] [facility] [address] [id number] [place] [address] Jun, [facility] [place] [facility] [address] [id number] [place] [address] Jun, [facility] [place] [facility] [address] [id number] [place] [address] Jun, [facility] [place] [facility] [address] [id number] [place] [address] Jun, [facility] [place] [facility] [address] [id number] [place] [address] Jul, [facility] [place] [facility] [address] [id number] [place] [address] 16 Jul, 2010 [facility] [place] [facility] [address] [id number] [place] [address] Jul, [facility] [place] [facility] [address] [id number] [place] [address] Jul, [facility] [place] [facility] [address] [id number] [place] [address] Jun, [facility] [place] [facility] [address] [id number] [place] [address] 31 Jun, 2009 [facility] [place] [facility] [address] [id number] [place] [address] Jun, [facility] [address] [facility] [id number] [place] [address] Jun, [facility] [address] [id number] [address] Jun, [facility] [address] [facility] [id number] [address] Mar, [facility] [address] [facility] [id number] [address] January, IMMUNIZATIONS No Known Immunizations SOCIAL HISTORY Never Assessed [place] [place] VITAL SIGNS MEDICATIONS No [...] History child Hospitalization History low blood pressure--via [facility] 12/2017
--- OUTSIDE RECORDS SUMMARY | 2019-04-09 01:26 | XMS REPORT ---
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 Active 62423884 Problem Spinal stenosis of thoracolumbar region M48.05 Active 50925100 Problem GERD (gastroesophageal reflux disease) K21.9 Active 535644489 Problem Hypertension I10 Active 55346070 Problem Chronic headaches R51 Active 827472741 Problem DDD (degenerative disc disease), thoracolumbar M51.35 Active 71839127 Problem Environmental allergies Z91.09 Active 752680299 Problem Spondylosis of cervical region without myelopathy or radiculopathy M47.812 Active 559749382 Problem Chronic pain G89.29 Active 54330748 Problem Dyslipidemia E78.5 Active 650053969 Problem Tobacco abuse Z72.0 Active 32823314 Problem Bipolar I disorder F31.9 Active 481982086 Problem Obsessive-compulsive disorder, unspecified type F42.9 Active 155802084 ALLERGIES No Information ENCOUNTERS Encounter Location Date Diagnosis [facility] [place] [address] [id number] [place] [id number] Dec, [facility] [place] [address] [facility] [id number] [place] [id number] Dec, Chronic pain G89.29 [facility] [place] [address] [id number] [place] [id number] Nov, [facility] [place] [address] [id number] [place] [id number] Nov, Chronic pain G89.29 [facility] [place] [address] [id number] [place] [id number] Nov, [facility] [place] [address] [facility] [id number] [place] [id number] Oct, [facility] [place] [address] [id number] [place] [phone] Oct, Chronic pain G89.29 [facility] [place] [address] [id number] [place] [address] Sep, Chronic pain G89.29 [facility] [place] [address] [id number] [place] [id number] Sep, [facility] [place] [address] [id number] [place] [id number] Sep, Otitis media H66.90 and URI (upper respiratory infection) J06.9 [facility] [place] [address] [id number] [place] [id number] Aug, Chronic pain G89.29 [facility] [place] [address] [id number] [place] [id number] Aug, 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 [facility] [place] [address] [id number] [place] [id number] Aug, Sinusitis J32.9 and Nausea R11.0 [facility] [place] [address] [id number] [place] [id number] Aug, Chronic pain G89.29 ; Spondylosis of cervical region without myelopathy or radiculopathy M47.812 and DDD (degenerative disc disease), thoracolumbar M51.35 [facility] [place] [address] [id number] [place] [phone] Aug, Bipolar I disorder F31.9 [facility] [place] [address] [id number] [place] [id number] Aug, Bipolar I disorder F31.9 and Obsessive-compulsive disorder, unspecified type F42.9 [facility] [place] [address] [id number] [place] [id number] Jul, Chronic pain G89.29 [facility] [place] [address] [id number] [place] [phone] Jul, [facility] [place] [address] [id number] [place] [phone] Jul, Bipolar I disorder F31.9 and Obsessive-compulsive disorder, unspecified type F42.9 [facility] [place] [address] [facility] [id number] [id number] Jul, GERD (gastroesophageal reflux disease) K21.9 ; Hypertension I10 ; 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 ; Chronic pain G89.29 ; Dyslipidemia E78.5 ; Environmental allergies Z91.09 and Encounter for immunization Z23 [facility] [id number] [place] [id number] Jun, Chronic pain G89.29 [facility] [id number] [place] [address] [id number] Jun, [address] [id number] [id number] Jun, [facility] [id number] [place] [id number] Jun, Dyslipidemia E78.5 [facility] [id number] [place] [id number] Jun, Chronic pain G89.29 [facility] [id number] [place] [address] [id number] May, [facility] [address] [id number] [place] [phone] May, Chronic pain G89.29 ; Tobacco abuse Z72.0 ; High risk medication use Z79.899 ; Dyslipidemia E78.5 ; Hepatitis C B19.20 ; Hypertension I10 ; Environmental allergies Z91.09 ; Anxiety F41.9 ; 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 and GERD (gastroesophageal reflux disease) K21.9 [facility] [address] [place] [address] [id number] Apr, Chronic pain G89.29 [facility] [id number] [place] [address] Mar, Costochondral separation, initial encounter S23.29XA and Injury of toe on left foot, initial encounter S99.922A [facility] [id number] [place] [address] [id number] Mar, Chronic pain G89.29 [facility] [id number] [place] [address] Feb, Poison elda L23.[address] [id number] Feb, Chronic pain G89.29 [place] [address] [address] Feb, Bronchitis J40 [place] [id number] [place] [address] [phone] Feb, [place] [id number] [place] [address] [id number] Feb, Chronic pain G89.[address] [id number] January, Vaginal discharge N89.8 ; Increased urinary frequency R35.0 ; Acute cystitis with hematuria N30.01 ; Other specified bacterial agents as the cause of diseases classified elsewhere B96.89 and Acute vaginitis N76.0 [place] [id number] [place] [address] [id number] January, Chronic pain G89.29 and Candidiasis B37.[address] [address] January, [facility] [address] [place] [id number] [place] [address] Dec, Acute frontal sinusitis, recurrence not specified J01.10 and Cough R05 [place] [id number] [place] [address] [id number] Dec, [place] [id number] [place] [address] [id number] Nov, [facility] [address] [address] Nov, Bronchitis J40 [place] [address] [facility] [address] [id number] [id number] Nov, [facility] [id number] [place] [address] Oct, COPD with acute exacerbation J44.1 [facility] [id number] [place] [id number] Oct, Chronic pain G89.29 [facility] [id number] [place] [address] [id number] Oct, [facility] [address] [place] [id number] [id number] Sep, Chronic pain G89.29 ; Depression F32.9 ; Anxiety F41.9 ; 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 and Flu-like symptoms R68.89 [place] [address] [id number] [place] [address] Aug, Chronic pain G89.29 ; Open bite of other finger without damage to nail, initial encounter S61.258A and Bitten by dog, initial encounter W54.0XXA [place] [address] [address] Jul, Menopause Z78.0 ; Ankle swelling, unspecified laterality M25.473 ; Chronic pain G89.29 and Tobacco abuse Z72.0 [facility] [address] [address] Jun, [facility] [address] [address] Jun, Chronic pain G89.29 [facility] [id number] [place] [address] May, Dysuria R30.0 ; Dehydration E86.0 and Hypertension I10 [place] [address] [address] May, Menopause Z78.0 ; Depression F32.9 ; Chronic pain G89.29 ; Environmental allergies Z91.09 ; 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 and Encounter for immunization Z23 [place] [address] [address] May, Chronic pain G89.29 [facility] [address], [place] [address] Apr, Chronic pain G89.29 [facility] [id number] [place] [address] Apr, Routine gynecological examination Z01.419 [facility] [id number] [place] [address] Mar, Chronic pain G89.29 [facility] [id number] [place] [address] Feb, [facility] [id number] [place] [address] Feb, Chronic pain G89.29 [facility] [id number] [place] [address] Feb, [facility] [id number] [place] [address] January, Chronic pain G89.29 [facility] [id number] [place] [address] January, Routine gynecological examination Z01.419 and Breast cancer screening Z12.39 [facility] [id number] [place] [address] January, Chronic pain G89.29 [facility] [id number] [place] [address] Dec, Postmenopausal HRT (hormone replacement therapy) Z79.890 [facility] [id number] [place] [address] Dec, [facility] [id number] [place] [address] Nov, Chronic pain G89.29 [facility] [id number] [place] [address] Nov, Chronic headaches R51 ; GERD (gastroesophageal reflux disease) K21.9 ; Hypertension I10 ; 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 ; Hepatitis C B19.20 ; Chronic pain G89.29 ; Pain of right thumb M79.644 ; Insomnia G47.00 ; Depression F32.9 ; Environmental allergies Z91.09 and Closed fracture of tuft of distal phalanx of finger, with routine healing, subsequent encounter S62.639D [place] [address] [address] 15 Nov, 2016 [place] [address] [address] Nov, [place] [address] [address] Nov, [place] [address] [address] Nov, Hypertension I10 [place] [address] [address] Nov, [facility] [id number] [place] [address] Nov, [place] [id number] [place] [address] Oct, Anxiety F41.9 [place] [id number] [place] [address] Oct, [facility] [id number] [place] [address] Oct, Acute upper respiratory infection, unspecified J06.9 and Other viral agents as the cause of diseases classified elsewhere B97.89 [place] [id number] [place] [address] Oct, [facility] [address] [address] Oct, Right acute serous otitis media, recurrence not specified H65.01 and Pharyngitis, unspecified etiology J02.9 [facility] [id number] [place] [address] Sep, [facility] [id number] [place] [address] Aug, Environmental allergies Z91.09 [facility] [id number] [place] [address] Aug, [facility] [id number] [place] [address] Jul, Atypical nevi D22.9 [facility] [id number] [place] [address] Jul, [facility] [id number] [place] [address] Jul, [facility] [id number] [place] [address] Jul, [facility] [id number] [place] [address] Jun, [facility] [id number] [place] [address] May, [facility] [id number] [place] [address] May, [facility] [id number] [place] [address] May, [facility] [id number] [place] [address] Apr, [facility] [id number] [place] [address] Apr, Chronic headaches R51 ; GERD (gastroesophageal reflux disease) K21.9 ; Hypertension I10 ; 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 ; Anxiety F41.9 ; COPD with acute exacerbation J44.1 ; Environmental allergies Z91.09 ; Depression F32.9 and Chronic pain G89.29 [place] [id number] [place] [address] Feb, Chronic headaches R51 and Chronic pain G89.29 [place] [address] [address] January, Chronic pain G89.29 and Anxiety F41.9 [place] [address] [address] January, Depression F32.9 and Hypertension I10 [place] [address] [address] January, Chronic pain G89.29 [place] [address] [address] Dec, [place] [address] [address] Dec, [place] [address] [address] Dec, Chronic headaches R51 ; Chronic pain G89.29 ; Environmental allergies Z91.09 ; GERD (gastroesophageal reflux disease) K21.9 ; Insomnia G47.00 ; Hypertension I10 and COPD with acute exacerbation J44.1 [place] [id number] [place] [address] Dec, [place] [id number] [place] [address] Dec, Chest pain R07.9 ; GERD (gastroesophageal reflux disease) K21.9 and Nausea R11.[address] [address] Nov, [place] [id number] [place] [address] Oct, COPD with acute exacerbation J44.1 ; Chronic headaches R51 ; GERD (gastroesophageal reflux disease) K21.9 ; Insomnia G47.00 ; Hypertension I10 ; Depression F32.9 and Anxiety F41.9 [place] [id number] [place] [address] Oct, [place] [id number] [place] [address] Oct, [address] [address] Oct, [address] [address] Oct, [address] [address] Oct, Flu-like symptoms R68.89 and COPD with acute exacerbation J44.[address] [address] Oct, [address] [address] Oct, Left shoulder pain M25.512 ; Chronic headaches R51 ; Environmental allergies Z91.09 ; GERD (gastroesophageal reflux disease) K21.9 ; Insomnia G47.00 ; Hypertension I10 ; Depression F32.9 and 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 [place] [id number] [place] [address] Sep, [place] [id number] [place] [address] Sep, COPD (chronic obstructive pulmonary disease) J44.[address] [address] Sep, Bronchitis J40 [place] [id number] [place] [address] Aug, Cervicalgia 723.1 ; Chronic hepatitis C without mention of hepatic coma 070.54 ; Essential hypertension 401.9 ; Chronic headaches R51 ; Environmental allergies Z91.09 ; GERD (gastroesophageal reflux disease) K21.9 ; Insomnia G47.00 ; Depression F32.9 and COPD (chronic obstructive pulmonary disease) J44.9 [place] [id number] [place] [address] Jul, Essential hypertension 401.9 ; Hypertension I10 ; Depression F32.9 ; Anxiety F41.9 ; Chronic headaches R51 and Cervicalgia M54.[address] [address] Jul, Essential hypertension 401.9 and Anxiety F41.[address] [address] Jul, [address] [address] Jul, [address] [address] Jul, Insomnia G47.00 ; GERD (gastroesophageal reflux disease) K21.9 ; Essential hypertension 401.9 ; Bipolar I disorder, most recent episode (or current) depressed, moderate 296.52 ; Hepatitis C B19.20 ; Depression F32.9 ; Hypertension I10 ; 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 ; Chronic headaches R51 and Chronic pain G89.29 [place] [id number] [place] [address] Jun, [address] [address] Jun, Chronic headaches R51 ; Environmental allergies Z91.09 ; GERD (gastroesophageal reflux disease) K21.9 ; Insomnia G47.00 ; Hepatitis C B19.20 ; Hypertension I10 ; Depression F32.9 ; 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 and Chronic pain G89.[address] [address] Jun, [address] [id number] [address] Jun, Vision changes H53.9 [facility] [id number] [place] [address] Apr, [facility] [id number] [place] [address] Apr, Bipolar I disorder, most recent episode (or current) depressed, moderate 296.52 ; Other chronic pain 338.29 ; Chronic hepatitis C without mention of hepatic coma 070.54 ; Essential hypertension 401.9 ; Environmental allergies V15.09 and GERD (gastroesophageal reflux disease) 530.81 [facility] [id number] [place] [address] Mar, [facility] [id number] [place] [address] Mar, [facility] [id number] [place] [address] Mar, [facility] [id number] [place] [address] Mar, [facility] [id number] [place] [address] Mar, [facility] [id number] [place] [address] Feb, Routine gynecological examination V72.31 ; Breast cancer screening V76.10 and Tobacco abuse 305.1 [facility] [id number] [place] [address] Feb, [facility] [id number] [place] [address] January, [facility] [id number] [place] [address] January, [facility] [id number] [place] [address] January, [facility] [address] [id number] [address] January, [facility] [id number] [place] [address] January, Mood disorder 296.90 and Anxiety 300.00 [facility] [id number] [place] [address] January, [facility] [id number] [place] [address] Dec, Headache 784.0 ; Other chronic pain 338.29 and Cervicalgia 723.1 [facility] [id number] [place] [address] Dec, [facility] [id number] [place] [address] Dec, [facility] [id number] [place] [address] Nov, [facility] [id number] [place] [address] Nov, [facility] [id number] [place] [address] Oct, [facility] [address], [place] [address] Oct, [facility] [id number] [place] [address] Oct, [facility] [id number] [place] [address] Oct, [facility] [id number] [place] [address] Oct, [facility] [id number] [place] [address] Oct, [facility] [id number] [place] [address] 19 Oct, 2014 [facility] [place] [facility] [address] [id number] [place] [address] 19 Oct, 2014 [facility] [place] [facility] [address] [id number] [place] [address] 18 Oct, 2014 [facility] [place] [facility] [address] [id number] [place] [address] 18 Oct, 2014 [facility] [place] [facility] [address] [id number] [place] [address] Oct, [facility] [place] [facility] [address] [id number] [place] [address] Oct, [facility] [place] [facility] [address] [id number] [place] [address] 20 Sep, 2014 [facility] [place] [facility] [address] [id number] [place] [address] Sep, [facility] [place] [facility] [address] [id number] [place] [address] Sep, [facility] [place] [facility] [address] [id number] [place] [address] 15 Sep, 2014 [facility] [place] [facility] [address] [id number] [place] [address] 15 Sep, 2014 [facility] [place] [facility] [address] [id number] [place] [address] 14 Sep, 2014 [facility] [place] [facility] [address] [id number], [place] [address] 14 Sep, 2014 [facility] [place] [facility] [address] [id number] [place] [address] Sep, [facility] [place] [facility] [address] [id number] [place] [address] 14 Sep, 2014 [facility] [place] [facility] [address] [id number], [place] [address] 09 Sep, 2014 [facility] [place] [facility] [address] [id number] [place] [address] Sep, [facility] [place] [facility] [address] [id number] [place] [address] Sep, [facility] [place] [facility] [address] [id number] [place] [address] Sep, [facility] [place] [facility] [address] [id number] [place] [address] Sep, [facility] [place] [facility] [address] [id number] [place] [address] Aug, [facility] [place] [facility] [address] [id number] [place] [address] Aug, [facility] [place] [facility] [address] [id number] [place] [address] Aug, [facility] [place] [facility] [address] [id number] [place] [address] Aug, [facility] [place] [facility] [address] [id number] [place] [address] Aug, [facility] [place] [facility] [address] [id number] [place] [address] Aug, [facility] [place] [facility] [address] [id number] [place] [address] Aug, [facility] [place] [facility] [address] [id number] [place] [address] Aug, [facility] [place] [facility] [address] [id number] [place] [address] Aug, [facility] [place] [facility] [address] [id number] [place] [address] Aug, [facility] [place] [facility] [address] [id number] [place] [address] Aug, [facility] [place] [facility] [address] [id number] [place] [address] Aug, [facility] [place] [facility] [address] [id number] [place] [address] Aug, [facility] [place] [facility] [address] [id number] [place] [address] Jul, [facility] [place] [facility] [address] [id number] [place] [address] Jul, [facility] [place] [facility] [address] [id number] [place] [address] Feb, [facility] [place] [facility] [address] [id number] [place] [address] Feb, [facility] [place] [facility] [address] [id number] [place] [address] January, [facility] [place] [facility] [address] [id number] [place] [address] January, [facility] [place] [facility] [address] [id number] [place] [address] January, [facility] [place] [facility] [address] [id number] [place] [address] January, [facility] [place] [facility] [address] [id number] [place] [address] Nov, [facility] [place] [facility] [address] [id number] [place] [address] Nov, [facility] [place] [facility] [address] [id number] [place] [address] Nov, [facility] [place] [facility] [address] [id number] [place] [address] Nov, [facility] [place] [facility] [address] [id number] [place] [address] Oct, [facility] [place] [facility] [address] [id number] [place] [address] Oct, [facility] [place] [facility] [address] [id number] [place] [address] Sep, [facility] [address] [id number] [place] [address] Sep, [facility] [address] [id number] [place] [address] Sep, [facility] [address] [id number] [place] [address] Sep, [facility] [address] [id number] [place] [address] Aug, [facility] [address] [id number] [place] [address] Aug, [facility] [address] [id number] [place] [address] Aug, [facility] [address] [id number] [place] [address] Aug, [facility] [address] [id number] [place] [address] Aug, [facility] [address] [id number] [place] [address] Aug, [facility] [address] [id number] [place] [address] Aug, [facility] [address] [id number] [place] [address] Jul, [facility] [address] [id number] [place] [address] Jul, [facility] [place] [facility] [address] [id number] [place] [address] Jul, [facility] [address] [id number] [place] [address] Jul, [facility] [address] [id number] [place] [address] Jul, [facility] [place] [facility] [address] [id number] [place] [address] 12 Jul, 2013 [facility] [place] [facility] [address] [id number] [place] [address] Jul, [facility] [place] [facility] [address] [id number] [place] [address] Jun, [facility] [place] [facility] [address] [id number] [place] [address] Jun, [facility] [place] [facility] [address] [id number] [place] [address] 30 Jun, 2013 [facility] [place] [facility] [address] [id number] [place] [address] Jun, [facility] [place] [facility] [address] [id number] [place] [address] 24 Jul, 2010 [facility] [place] [facility] [address] [id number], [place] [address] 16 Jul, 2010 [facility] [place] [facility] [address] [id number] [place] [address] Jul, [facility] [place] [facility] [address] [id number], [place] [address] Jul, [facility] [place] [facility] [address] [id number], [place] [address] Jun, [facility] [place] [facility] [address] [id number], [place] [address] 31 Jun, 2009 [facility] [place] [facility] [address] [id number] [place] [address] 29 Jun, 2009 [facility] [place] [facility] [address] [id number], [place] [address] 28 Jun, 2009 [facility] [place] [facility] [address] [id number], [place] [address] 15 Jun, 2009 [facility] [place] [facility] [address] [id number] [place] [address] Mar, [facility] [address] [facility] [id number], [place] [address] January, IMMUNIZATIONS No Known Immunizations SOCIAL HISTORY Never Assessed REASON FOR VISIT [facility] [place] CARE VITAL SIGNS MEDICATIONS Medication Instructions Dosage Frequency Start Date End Date Duration Status Azithromycin 250 mg 2 Tablet by Oral route on day 1 then take 1 daily for 6 days Sep, Active PredniSONE 20 mg 2 tablet by Oral route 1 time per day for 5 day(s) Aug, Active tizanidine 4 mg 1 tablet by Oral route 3 times per day Oct, Active Zithromax Z-Bryan 250 mg 2-1 tablet by Oral route 1 time per day for 5 days 2 tabs on day one then one tab daily for 4 days Aug, Active PredniSONE 10 mg 2 tablet by Oral route 1 time per day for 5 day(s) Sep, Active Symbicort 160-4.5 mcg/actuation inhale 2 puffs by Inhalation route in the morning and evening 2 times per day Jul, Active Diclofenac Sodium 75 mg 1 Tablet by Oral route 2 times per day Oct, Active Promethazine-Codeine 6.25-10 mg/5 mL 5 mL by Oral route every 6 hours for 3 day(s) PRN Sep, Active Mucinex 600 mg 1 tablet by Oral route every 12 hours for 12 day PRN with plenty of water Sep, Active Effexor XR 75 mg take 1 tablet by Oral route 1 time per day Aug, Active Protonix 40 mg take 1 tablet (40 mg) by oral route once daily Sep, Active Flonase 50 mcg/actuation 1 sprays by Nasal route 2 times per day in each nostril Nov, Active Gabapentin 800 mg 1 Tablet by Oral route 3 times per day Oct, Active Flexeril 10 mg 1 tablet by Oral route 1 time per day PRN muscle spasm. take at bedtime Aug, Active cetirizine 10 mg 1 tablet by Oral route 1 daily Nov, Active Lisinopril 10 mg take 1 tablet (10 mg) by oral route once daily Aug, Active Hydrochlorothiazide 25 mg take 1 tablet by Oral route 1 time per day Sep, Active Singulair 10 mg 1 tablet by Oral route 1 time per day Sep, Active RESULTS No Results PROCEDURES No Known [...] History child Hospitalization History low blood pressure--[facility] [place] 12/2017
--- OUTSIDE RECORDS SUMMARY | 2019-04-09 01:26 | XMS REPORT ---
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 Active 85697051 Problem Chronic headaches R51 Active 456484523 Problem Spondylosis of cervical region without myelopathy or radiculopathy M47.812 Active 332943546 Problem DDD (degenerative disc disease), thoracolumbar M51.35 Active 34615938 Problem Dyslipidemia E78.5 Active 708359658 Problem Tobacco abuse Z72.0 Active 32147087 Problem Bipolar I disorder F31.9 Active 833522767 Problem Obsessive-compulsive disorder, unspecified type F42.9 Active 078676071 ALLERGIES No Information ENCOUNTERS Encounter Location Date Diagnosis [facility] [place] [id number] [place] [id number] Aug, Chronic pain G89.29 ; Spondylosis of cervical region without myelopathy or radiculopathy M47.812 and DDD (degenerative disc disease), thoracolumbar M51.35 [facility] [place] [address] [id number] [place] [id number] Aug, Bipolar I disorder F31.9 [facility] [place] [address] [id number] [place] [id number] Aug, Bipolar I disorder F31.9 and Obsessive-compulsive disorder, unspecified type F42.9 [facility] [place] [address] [id number] [place] [id number] Jul, Chronic pain G89.29 [facility] [place] [address] [id number] [id number] Jul, [facility] [place] [id number] [place] [id number] Jul, Bipolar I disorder F31.9 and Obsessive-compulsive disorder, unspecified type F42.9 [facility] [place] [id number] [id number] Jul, GERD (gastroesophageal reflux disease) K21.9 ; Hypertension I10 ; 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 ; Chronic pain G89.29 ; Dyslipidemia E78.5 ; Environmental allergies Z91.09 and Encounter for immunization Z23 [facility] [place] [id number] [place] [id number] Jun, Chronic pain G89.29 [facility] [id number] [place] [address] [id number] Jun, [id number] [place] [address] [id number] Jun, [facility] [id number] [place] [address] [id number] Jun, Dyslipidemia E78.5 [place] [id number] [place] [address] [id number] Jun, Chronic pain G89.29 [facility] [address] [place] [address] [id number] May, [place] [id number] [place] [address] [phone] May, Chronic pain G89.29 ; Tobacco abuse Z72.0 ; High risk medication use Z79.899 ; Dyslipidemia E78.5 ; Hepatitis C B19.20 ; Hypertension I10 ; Environmental allergies Z91.09 ; Anxiety F41.9 ; 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 [id number] [place] [address] Mar, Costochondral separation, initial encounter S23.29XA and Injury of toe on left foot, initial encounter S99.922A [address] [id number] Mar, Chronic pain G89.29 [facility] [address] [address] Feb, Poison elda L23.[address] [id number] Feb, Chronic pain G89.29 [facility] [address] [address] Feb, Bronchitis J40 [address] [id number] Feb, [address] [id number] Feb, Chronic pain G89.[address] [id number] January, Vaginal discharge N89.8 ; Increased urinary frequency R35.0 ; Acute cystitis with hematuria N30.01 ; Other specified bacterial agents as the cause of diseases classified elsewhere B96.89 and Acute vaginitis N76.0 [place] [id number] [place] [address] [id number] January, Chronic pain G89.[address] [facility] [address] [address] January, [facility] [address] [address] Dec, Acute frontal sinusitis, recurrence not specified J01.10 and Cough R05 [place] [id number] [place] [id number] Dec, [address] [id number] Nov, [facility] [address] [address] Nov, Bronchitis J40 [facility] [address] [id number] [id number] Nov, [facility] [id number] [place] [address] Oct, COPD with acute exacerbation J44.1 [facility] [id number] [place] [address] [id number] Oct, Chronic pain G89.29 [facility] [id number] [place] [address] [id number] Oct, [facility] [address] [place] [address] [id number] Sep, Chronic pain G89.29 ; Depression F32.9 ; Anxiety F41.9 ; 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 [id number] [place] [address] May, Chronic pain G89.29 [facility] [id number] [place] [address] Apr, Chronic pain G89.29 [facility] [id number] [place] [address] Apr, Routine gynecological examination Z01.419 [place] [id number] [place] [address] Mar, Chronic pain G89.29 [facility] [id number] [place] [address] Feb, [facility] [id number] [place] [address] Feb, Chronic pain G89.29 [facility] [id number] [place] [address] Feb, [facility] [id number] [place] [address] January, Chronic pain G89.29 [facility] [id number] [place] [address] January, Routine gynecological examination Z01.419 and Breast cancer screening Z12.39 [facility] [id number] [place] [address] January, Chronic pain G89.29 [facility] [id number] [place] [address] Dec, Postmenopausal HRT (hormone replacement therapy) Z79.890 [place] [id number] [place] [address] Dec, [place] [id number] [place] [address] Nov, Chronic pain G89.29 [place] [address] [address] 30 Nov, 2016 Chronic headaches R51 ; [...] finger, with routine healing, subsequent encounter S62.639D [place] [address] [address] Nov, [place] [address] [address] Nov, [place] [address] [address] Nov, [place] [address] [address] Nov, Hypertension I10 [place] [address] [address] Nov, [place] [address] [address] Nov, [place] [id number] [place] [address] Oct, Anxiety F41.9 [place] [address] [address] Oct, [place] [id number] [place] [address] Oct, Acute upper respiratory infection, unspecified J06.9 and Other viral agents as the cause of diseases classified elsewhere B97.89 [place] [address] [address] Oct, [facility] [id number] [place] [address] Oct, Right acute serous otitis media, recurrence not specified H65.01 and Pharyngitis, unspecified etiology J02.9 [facility] [id number] [place] [address] Sep, [facility] [id number] [place] [address] Aug, Environmental allergies Z91.09 [facility] [id number] [place] [address] Aug, [facility] [id number] [place] [address] Jul, Atypical nevi D22.9 [facility] [id number] [place] [address] Jul, [facility] [id number] [place] [address] Jul, [facility] [id number] [place] [address] Jul, [facility] [address] [address] Jun, [facility] [address] [address] May, [facility] [address] [id number] [address] May, [facility] [id number] [place] [address] [address], [address] [facility] [address], [place] [address] Apr, 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 ; Anxiety F41.9 ; COPD with acute exacerbation J44.1 ; Environmental allergies Z91.09 ; Depression F32.9 and Chronic pain G89.29 [place] [address] [address] Feb, Chronic headaches R51 and Chronic pain G89.29 [place] [address] [address] January, Chronic pain G89.29 and Anxiety F41.9 [place] [address] [address] January, Depression F32.9 and Hypertension I10 [place] [address] [address] January, Chronic pain G89.29 [place] [address] [address] Dec, [place] [address] [address] Dec, [place] [address] [address] Dec, Chronic headaches R51 ; Chronic pain G89.29 ; Environmental allergies Z91.09 ; GERD (gastroesophageal reflux disease) K21.9 ; Insomnia G47.00 ; Hypertension I10 and COPD with acute exacerbation J44.1 [place] [address] [address] Dec, [place] [address] [address] Dec, Chest pain R07.9 ; GERD (gastroesophageal reflux disease) K21.9 and Nausea R11.0 [place] [address] [address] Nov, [place] [id number] [place] [address] Oct, COPD with acute exacerbation J44.1 ; Chronic headaches R51 ; GERD (gastroesophageal reflux disease) K21.9 ; Insomnia G47.00 ; Hypertension I10 ; Depression F32.9 and Anxiety F41.9 [place] [address] [address] Oct, [place] [address] [address] Oct, [place] [address] [address] Oct, [place] [address] [address] Oct, [place] [address] [address] Oct, Flu-like symptoms R68.89 and COPD with acute exacerbation J44.1 [place] [address] [address] Oct, [place] [address] [place] [id number] [place] [address] Oct, Left shoulder pain M25.512 ; Chronic headaches R51 ; Environmental allergies Z91.09 ; GERD (gastroesophageal reflux disease) K21.9 ; Insomnia G47.00 ; Hypertension I10 ; Depression F32.9 and 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 [place] [address] [id number] [place] [address] Sep, [place] [address] [address] Sep, COPD (chronic obstructive pulmonary disease) J44.9 [place] [address] [address] Sep, Bronchitis J40 [place] [id number] [place] [address] Aug, Cervicalgia 723.1 ; Chronic hepatitis C without mention of hepatic coma 070.54 ; Essential hypertension 401.9 ; Chronic headaches R51 ; Environmental allergies Z91.09 ; GERD (gastroesophageal reflux disease) K21.9 ; Insomnia G47.00 ; Depression F32.9 and COPD (chronic obstructive pulmonary disease) J44.[address] [address] Jul, Essential hypertension 401.9 ; Hypertension I10 ; Depression F32.9 ; Anxiety F41.9 ; Chronic headaches R51 and Cervicalgia M54.[address] [address] Jul, Essential hypertension 401.9 and Anxiety F41.[address] [address] Jul, [address] [address] Jul, [address] [address] Jul, Insomnia G47.00 ; GERD (gastroesophageal reflux disease) K21.9 ; Essential hypertension 401.9 ; Bipolar I disorder, most recent episode (or current) depressed, moderate 296.52 ; Hepatitis C B19.20 ; Depression F32.9 ; Hypertension I10 ; 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 [address] [id number] [place] [address] Jun, Vision changes H53.[address] [address] Apr, [address] [address] Apr, Bipolar I disorder, most recent episode (or current) depressed, moderate 296.52 ; Other chronic pain 338.29 ; Chronic hepatitis C without mention of hepatic coma 070.54 ; Essential hypertension 401.9 ; Environmental allergies V15.09 and GERD (gastroesophageal reflux disease) 530.[address] [address] Mar, [place] [address] [place] [place] [id number] [place] [address] Mar, [place] [id number] [place] [address] Mar, [place] [address] [place] [place] [id number] [place] [address] Mar, [place] [id number] [place] [address] Mar, [place] [address] [id number] [place] [address] Feb, Routine gynecological examination V72.31 ; Breast cancer screening V76.10 and Tobacco abuse 305.1 [place] [id number] [place] [address] Feb, [address] [address] January, [facility] [address], [place] [address] January, [facility] [id number] [place] [address] January, [facility] [id number] [place] [address] January, [facility] [id number] [place] [address] January, Mood disorder 296.[address] [facility] [id number] [place] [address] January, [facility] [id number] [place] [address] Dec, Headache 784.0 ; Other chronic pain 338.[address] [facility] [address] [id number] [place] [address] Dec, [facility] [address] [place] [address] Dec, [facility] [address] [place] [address] Nov, [facility] [address], [place] [address] Nov, [facility] [address] [address] Oct, [facility] [address], [place] [address] Oct, [facility] [address], [place] [address] Oct, [facility] [address], [place] [address] Oct, [facility] [id number] [place] [address], [place] [address] 20 Oct, 2014 [facility] [place] [facility] [address] [id number] [place] [address] 20 Oct, 2014 [facility] [place] [facility] [address] [id number] [place] [address] 19 Oct, 2014 [facility] [place] [facility] [address] [id number] [place] [address] 19 Oct, 2014 [facility] [place] [facility] [address] [id number] [place] [address] 18 Oct, 2014 [facility] [place] [facility] [address] [id number] [place] [address] 18 Oct, 2014 [facility] [place] [facility] [address] [id number] [place] [address] 17 Oct, 2014 [facility] [place] [facility] [address] [id number] [place] [address] 17 Oct, 2014 [facility] [place] [facility] [address] [id number] [place] [address] Sep, [facility] [place] [facility] [address] [id number] [place] [address] Sep, [facility] [place] [facility] [address] [facility] [id number] [place] [address] Sep, [facility] [place] [facility] [address] [id number] [place] [address] 15 Sep, 2014 [facility] [place] [facility] [address] [id number] [place] [address] 15 Sep, 2014 [facility] [place] [facility] [address] [id number] [place] [address] 14 Sep, 2014 [facility] [place] [facility] [address] [id number] [place] [address] 14 Sep, 2014 [facility] [place] [facility] [address] [id number] [place] [address] Sep, [facility] [place] [facility] [address] [id number] [place] [address] Sep, [facility] [place] [facility] [address] [id number] [place] [address] Sep, [facility] [place] [facility] [address] [id number] [place] [address] Sep, [facility] [place] [facility] [address] [id number] [place] [address] Sep, [facility] [place] [facility] [address] [id number] [place] [address] Sep, [facility] [place] [facility] [address] [id number] [place] [address] Sep, [facility] [place] [facility] [address] [id number] [place] [address] Aug, [facility] [place] [facility] [address] [id number] [place] [address] Aug, [facility] [place] [facility] [address] [id number] [place] [address] Aug, [facility] [place] [facility] [address] [id number] [place] [address] Aug, [facility] [place] [facility] [address] [id number] [place] [address] Aug, [facility] [place] [facility] [address] [id number] [place] [address] Aug, [facility] [place] [facility] [address] [id number] [place] [address] Aug, [facility] [place] [facility] [address] [id number] [place] [address] Aug, [facility] [place] [facility] [address] [id number] [place] [address] Aug, [facility] [place] [facility] [address] [id number] [place] [address] Aug, [facility] [place] [facility] [address] [id number] [place] [address] Aug, [facility] [place] [facility] [address] [id number] [place] [address] Aug, [facility] [place] [facility] [address] [id number] [place] [address] Aug, [facility] [place] [facility] [address] [id number] [place] [address] Jul, [facility] [place] [facility] [address] [id number] [place] [address] Jul, [facility] [place] [facility] [address] [id number] [place] [address] Feb, [facility] [place] [facility] [address] [id number] [place] [address] Feb, [facility] [place] [facility] [address] [id number] [place] [address] January, [facility] [place] [facility] [address] [id number] [place] [address] January, [facility] [place] [facility] [address] [facility] [id number] [place] [address] January, [facility] [place] [facility] [address] [id number] [place] [address] January, [facility] [place] [facility] [address] [id number] [place] [address] Nov, [facility] [place] [facility] [address] [id number] [place] [address] Nov, [facility] [place] [facility] [address] [id number] [place] [address] Nov, [facility] [place] [facility] [address] [id number] [place] [address] Nov, [facility] [place] [facility] [address] [id number] [place] [address] Oct, [facility] [address] [id number] [place] [address] Oct, [facility] [place] [facility] [address] [id number] [place] [address] Sep, [facility] [place] [facility] [address] [id number] [place] [address] Sep, [facility] [address] [id number] [place] [address] Sep, [facility] [address] [id number] [place] [address] Sep, [facility] [address] [id number] [place] [address] Aug, [facility] [address] [id number] [place] [address] Aug, [facility] [place] [facility] [address] [id number] [place] [address] Aug, [facility] [address] [id number] [place] [address] Aug, [facility] [place] [facility] [address] [id number] [place] [address] Aug, [facility] [place] [facility] [address] [id number] [place] [address] Aug, [facility] [place] [facility] [address] [id number] [place] [address] Aug, [facility] [place] [facility] [address] [id number] [place] [address] Jul, [facility] [place] [facility] [address] [id number] [place] [address] Jul, [facility] [place] [facility] [address] [id number] [place] [address] Jul, [facility] [place] [facility] [address] [id number] [place] [address] Jul, [facility] [place] [facility] [address] [id number] [place] [address] Jul, [facility] [place] [facility] [address] [id number] [place] [address] Jul, [facility] [place] [facility] [address] [id number] [place] [address] Jul, [facility] [place] [facility] [address] [id number] [place] [address] Jun, [facility] [place] [facility] [address] [id number] [place] [address] Jun, [facility] [place] [facility] [address] [id number] [place] [address] Jun, [facility] [place] [facility] [address] [id number] [place] [address] Jun, [facility] [place] [facility] [address] [id number], [place] [address] Jul, [facility] [place] [facility] [address] [id number] [place] [address] 16 Jul, 2010 [facility] [place] [facility] [address] [id number], [place] [address] Jul, [facility] [place] [facility] [address] [id number], [place] [address] Jul, [facility] [place] [facility] [address] [id number] [place] [address] Jun, [facility] [place] [facility] [address] [id number] [place] [address] 31 Jun, 2009 [facility] [place] [facility] [address] [id number] [place] [address] 29 Jun, 2009 [facility] [place] [facility] [address] [facility] [id number] [place] [address] Jun, [facility] [address] [facility] [id number] [address] Jun, [facility] [address] [facility] [id number], [place] [address] Mar, [facility] [address] [facility] [id number], [place] [address] January, IMMUNIZATIONS No Known Immunizations SOCIAL HISTORY Never Assessed REASON FOR VISIT med order, lab deferred PLAN OF CARE VITAL SIGNS MEDICATIONS Medication Instructions Dosage Frequency Start Date End Date Duration Status [place] Carbonate ER 300 MG 1 capsule in am and 2 capsules at hs 19 Aug, 2018 30 day(s) Active RESULTS No Results PROCEDURES No Known [...] History child Hospitalization History low blood pressure--via [facility] 12/2017
--- OUTSIDE RECORDS SUMMARY | 2019-04-09 01:27 | XMS REPORT ---
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 Active 25534682 Problem Chronic pain G89.29 Active 78134376 Problem Environmental allergies Z91.09 Active 583289450 Problem Bipolar I disorder F31.9 Active 644620470 Problem Obsessive-compulsive disorder, unspecified type F42.9 Active 852781298 Problem Cervicalgia M54.2 Active 234615497 Problem Hypertension I10 Active 74273649 Problem Tobacco abuse Z72.0 Active 14322359 Problem Dyslipidemia E78.5 Active 582374049 ALLERGIES No Information ENCOUNTERS Encounter Location Date Diagnosis [facility] [place] [address] [id number] [place] [id number] Aug, [facility] [place] [address] [id number] [place] [id number] Aug, [facility] [place] [address] [id number] [place] [id number] Aug, Bipolar I disorder F31.9 and Obsessive-compulsive disorder, unspecified type F42.9 [facility] [place] [address] [id number] [place] [id number] Jul, Chronic pain G89.29 [facility] [place] [address] [id number] [place] [id number] Jul, [facility] [place] [address] [id number] [place] [id number] Jul, Bipolar I disorder F31.9 and Obsessive-compulsive disorder, unspecified type F42.9 [facility] [place] [address] [id number] [place] [address] Jul, GERD (gastroesophageal reflux disease) K21.9 ; Hypertension I10 ; 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 ; Chronic pain G89.29 ; Dyslipidemia E78.5 ; Environmental allergies Z91.09 and Encounter for immunization Z23 [facility] [id number] [id number] Jun, Chronic pain G89.29 [facility] [id number] [place] [id number] Jun, [address] [id number] [id number] Jun, [facility] [id number] [place] [id number] Jun, Dyslipidemia E78.5 [facility] [id number] [place] [address] [id number] Jun, Chronic pain G89.29 [facility] [id number] [place] [address] [id number] May, [facility] [id number] [place] [id number] May, Chronic pain G89.29 ; Tobacco abuse Z72.0 ; High risk medication use Z79.899 ; Dyslipidemia E78.5 ; Hepatitis C B19.20 ; Hypertension I10 ; Environmental allergies Z91.09 ; Anxiety F41.9 ; 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 and GERD (gastroesophageal reflux disease) K21.9 [facility] [id number] [id number] Apr, Chronic pain G89.29 [facility] [id number] [place] [address] Mar, Costochondral separation, initial encounter S23.29XA and Injury of toe on left foot, initial encounter S99.922A [facility] [id number][place] [id number] Mar, Chronic pain G89.29 [facility] [id number] [place] [address] Feb, Poison elda L23.7 [address] [place] [address] [id number] Feb, Chronic pain G89.29 [facility] [id number] [place] [address] Feb, Bronchitis J40 [address] [place] [address] [id number] Feb, [place] [id number] [place] [address] [id number] Feb, Chronic pain G89.29 [place] [id number] [place] [address] [phone] January, Vaginal discharge N89.8 ; Increased urinary frequency R35.0 ; Acute cystitis with hematuria N30.01 ; Other specified bacterial agents as the cause of diseases classified elsewhere B96.89 and Acute vaginitis N76.0 [place] [id number] [place] [id number] January, Chronic pain G89.29 and Candidiasis B37.9 [facility] [id number] [place] [address] January, [facility] [id number] [place] [address] Dec, Acute frontal sinusitis, recurrence not specified J01.10 and Cough R05 [address] [place] [address] [id number] Dec, [address] [place] [address] [phone] Nov, [facility] [address] [place] [address] Nov, Bronchitis J[address] [facility] [id number] [id number] Nov, [facility] [address] [place] [address] Oct, COPD with acute exacerbation J44.1 [facility] [address] [id number] [id number] 12 Oct, 2017 Chronic pain G89.29 [facility] [id number][place] [id number] 08 Oct, 2017 [facility] [address] [id number] [address] Sep, Chronic pain G89.29 ; Depression F32.9 ; Anxiety F41.9 ; 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 and Flu-like symptoms R68.89 [facility] [id number] [address] Aug, Chronic pain G89.29 ; Open bite of other finger without damage to nail, initial encounter S61.258A and Bitten by dog, initial encounter W54.0XXA [facility] [id number] [place] [address] Jul, Menopause Z78.0 ; Ankle swelling, unspecified laterality M25.473 ; Chronic pain G89.29 and Tobacco abuse Z72.0 [facility] [id number] [place] [address] Jun, [facility] [address] [address] Jun, Chronic pain G89.29 [facility] [id number] [place] [address] May, Dysuria R30.0 ; Dehydration E86.0 and Hypertension I10 [place] [address] [address] 19 May, 2017 Menopause Z78.0 ; Depression F32.9 ; Chronic pain G89.29 ; Environmental allergies Z91.09 ; 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 and Encounter for immunization Z23 [place] [id number] [place] [address] 18 May, 2017 Chronic pain G89.29 [facility] [address]00565100[place] [address] Apr, Chronic pain G89.29 [facility] [id number] [place] [address] Apr, Routine gynecological examination Z01.419 [facility] [id number] [place] [address] Mar, Chronic pain G89.29 [facility] [id number] [place] [address] Feb, [facility] [id number] [place] [address] Feb, Chronic pain G89.29 [facility] [id number] [place] [address] Feb, [facility] [id number] [place] [address] January, Chronic pain G89.29 [facility] [id number] [place] [address] January, Routine gynecological examination Z01.419 and Breast cancer screening Z12.39 [facility] [address] [place] [address] January, Chronic pain G89.29 [facility] [address]65[address] [address] Dec, Postmenopausal HRT (hormone replacement therapy) Z79.890 [facility] [address]65[address] [address] Dec, [facility] [id number] [place] [address] Nov, Chronic pain G89.29 [facility] [address]65[address] [address] Nov, Chronic headaches R51 ; GERD (gastroesophageal reflux disease) K21.9 ; Hypertension I10 ; 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 ; Hepatitis C B19.20 ; Chronic pain G89.29 ; Pain of right thumb M79.644 ; Insomnia G47.00 ; Depression F32.9 ; Environmental allergies Z91.09 and Closed fracture of tuft of distal phalanx of finger, with routine healing, subsequent encounter S62.639D [place] [address] [address] Nov, [place] [address] [address] Nov, [place] [address] [address] Nov, [place] [address] [address] Nov, Hypertension I10 [place] [address] [address] Nov, [place] [address] [address] Nov, [place] [address] [address] Oct, Anxiety F41.9 [place] [address] [address] Oct, [place] [address] [address] Oct, Acute upper respiratory infection, unspecified J06.9 and Other viral agents as the cause of diseases classified elsewhere B97.89 [place] [address] [address] Oct, [place] [address] [address] Oct, Right acute serous otitis media, recurrence not specified H65.01 and Pharyngitis, unspecified etiology J02.9 [facility] [address]65[address] [address] Sep, [facility] [id number] [place] [address] Aug, Environmental allergies Z91.09 [facility] [id number] [place] [address] Aug, [facility] [id number] [place] [address] Jul, Atypical nevi D22.9 [facility] [id number] [place] [address] Jul, [facility] [id number] [place] [address] Jul, [facility] [id number] [place] [address] Jul, [facility] [address] [address] Jun, [facility] [id number] [place] [address] May, [facility] [address] [address] May, [facility] [address] [place] [address] May, [facility] [address] [address] Apr, [facility] [address] [place] [address] Apr, Chronic headaches R51 ; GERD (gastroesophageal reflux disease) K21.9 ; Hypertension I10 ; 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 ; Anxiety F41.9 ; COPD with acute exacerbation J44.1 ; Environmental allergies Z91.09 ; Depression F32.9 and Chronic pain G89.29 [place] [id number] [place] [address] Feb, Chronic headaches R51 and Chronic pain G89.29 [place] [id number] [place] [address] January, Chronic pain G89.29 and Anxiety F41.9 [place] [address] [address] January, Depression F32.9 and Hypertension I10 [place] [id number] [place] [address] January, Chronic pain G89.29 [place] [address] [address] Dec, [place] [address] [address] Dec, [place] [address] [address] Dec, Chronic headaches R51 ; Chronic pain G89.29 ; Environmental allergies Z91.09 ; GERD (gastroesophageal reflux disease) K21.9 ; Insomnia G47.00 ; Hypertension I10 and COPD with acute exacerbation J44.1 [place] [id number] [place] [address] Dec, [place] [id number] [place] [address] Dec, Chest pain R07.9 ; GERD (gastroesophageal reflux disease) K21.9 and Nausea R11.0 [place] [id number] [place] [address] Nov, [place] [address] [address] Oct, COPD with acute exacerbation J44.1 ; Chronic headaches R51 ; GERD (gastroesophageal reflux disease) K21.9 ; Insomnia G47.00 ; Hypertension I10 ; Depression F32.9 and Anxiety F41.9 [place] [id number] [place] [address] Oct, [place] [id number] [place] [address] Oct, [place] [id number] [place] [address] Oct, [place] [address] [address] Oct, [address] [address] Oct, Flu-like symptoms R68.89 and COPD with acute exacerbation J44.[address] [address] Oct, [address] [address] Oct, Left shoulder pain M25.512 ; Chronic headaches R51 ; Environmental allergies Z91.09 ; GERD (gastroesophageal reflux disease) K21.9 ; Insomnia G47.00 ; Hypertension I10 ; Depression F32.9 and 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9 and COPD (chronic obstructive pulmonary disease) J44.[address] [address] Jul, Essential hypertension 401.9 ; Hypertension I10 ; Depression F32.9 ; Anxiety F41.9 ; Chronic headaches R51 and Cervicalgia M54.[address] [address] Jul, Essential hypertension 401.9 and Anxiety F41.[address] [address] Jul, [address] [address] Jul, [address] [address] Jul, Insomnia G47.00 ; GERD (gastroesophageal reflux disease) K21.9 ; Essential hypertension 401.9 ; Bipolar I disorder, most recent episode (or current) depressed, moderate 296.52 ; Hepatitis C B19.20 ; Depression F32.9 ; Hypertension I10 ; 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 ; Chronic headaches R51 and Chronic pain G89.[address] [address] Jun, [address] [address] Jun, Chronic headaches R51 ; Environmental allergies Z91.09 ; GERD (gastroesophageal reflux disease) K21.9 ; Insomnia G47.00 ; Hepatitis C B19.20 ; Hypertension I10 ; Depression F32.9 ; 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 and Chronic pain G89.[address] [address] Jun, [address] [address] Jun, Vision changes H53.9 [facility] [address], [place] [address] Apr, [facility] [address] [place] [address] Apr, Bipolar I disorder, most recent episode (or current) depressed, moderate 296.52 ; Other chronic pain 338.29 ; Chronic hepatitis C without mention of hepatic coma 070.54 ; Essential hypertension 401.9 ; Environmental allergies V15.09 and GERD (gastroesophageal reflux disease) 530.81 [facility] [address] [place] [address] Mar, [facility] [id number] [place] [address] Mar, [facility] [id number] [place] [address] Mar, [facility] [address] [place] [address] Mar, [facility] [id number] [place] [address] Mar, [facility] [id number] [place] [address] Feb, Routine gynecological examination V72.31 ; Breast cancer screening V76.10 and Tobacco abuse 305.1 [facility] [address], [place] [address] Feb, [facility] [address], [place] [address] January, [facility] [id number] [place] [address] January, [facility] [address] [place] [address] January, [facility] [id number] [address] January, [facility] [address] [place] [address] January, Mood disorder 296.90 and Anxiety 300.00 [facility] [id number] [place] [address] January, [facility] [id number] [place] [address] Dec, Headache 784.0 ; Other chronic pain 338.29 and Cervicalgia 723.1 [facility] [id number] [place] [address] Dec, [facility] [id number] [place] [address] Dec, [facility] [id number] [place] [address] Nov, [facility] [id number] [place] [address] Nov, [facility] [id number] [place] [address] Oct, [facility] [id number] [address] Oct, [facility] [address] [place] [address] Oct, [facility] [address], [place] [address] Oct, [facility] [id number] [place] [address] Oct, [facility] [id number], [place] [address] Oct, [facility] [address] [place] [address] Oct, [facility] [place] [facility] [address] [id number] [place] [address] 19 Oct, 2014 [facility] [place] [facility] [address] [id number] [place] [address] Oct, [facility] [place] [facility] [address] [id number] [place] [address] 18 Oct, 2014 [facility] [place] [facility] [address] [id number] [place] [address] Oct, [facility] [place] [facility] [address] [id number] [place] [address] Oct, [facility] [place] [facility] [address] [id number] [place] [address] 20 Sep, 2014 [facility] [place] [facility] [address] [id number] [place] [address] Sep, [facility] [place] [facility] [address] [id number] [place] [address] Sep, [facility] [place] [facility] [address] [id number] [place] [address] 15 Sep, 2014 [facility] [place] [facility] [address] [id number] [place] [address] 15 Sep, 2014 [facility] [place] [facility] [address] [id number] [address] 14 Sep, 2014 [facility] [place] [facility] [address] [id number], [place] [address] Sep, [facility] [place] [facility] [address] [id number] [place] [address] Sep, [facility] [place] [facility] [address] [id number], [place] [address] 14 Sep, 2014 [facility] [place] [facility] [address] [id number] [place] [address] 09 Sep, 2014 [facility] [place] [facility] [address] [id number] [place] [address] Sep, [facility] [address] [id number] [place] [address] Sep, [facility] [place] [facility] [address] [id number] [place] [address] Sep, [facility] [place] [facility] [address] [id number] [place] [address] Sep, [facility] [place] [facility] [address] [id number] [place] [address] Aug, [facility] [place] [facility] [address] [id number] [place] [address] Aug, [facility] [place] [facility] [address] [id number] [place] [address] Aug, [facility] [place] [facility] [address] [id number] [place] [address] Aug, [facility] [place] [facility] [address] [id number] [place] [address] Aug, [facility] [place] [facility] [address] [id number] [place] [address] Aug, [facility] [place] [facility] [address] [id number] [place] [address] Aug, [facility] [place] [facility] [address] [id number] [place] [address] Aug, [facility] [place] [facility] [address] [id number] [place] [address] Aug, [facility] [place] [facility] [address] [id number] [place] [address] Aug, [facility] [place] [facility] [address] [id number] [place] [address] Aug, [facility] [place] [facility] [address] [id number] [place] [address] Aug, [facility] [place] [facility] [address] [id number] [place] [address] Aug, [facility] [place] [facility] [address] [id number] [place] [address] Jul, [facility] [place] [facility] [address] [id number] [place] [address] Jul, [facility] [place] [facility] [address] [id number] [place] [address] Feb, [facility] [place] [facility] [address] [id number] [place] [address] Feb, [facility] [place] [facility] [address] [id number] [place] [address] January, [facility] [place] [facility] [address] [id number] [place] [address] January, [facility] [place] [facility] [address] [id number] [place] [address] January, [facility] [place] [facility] [address] [id number] [place] [address] January, [facility] [place] [facility] [address] [id number] [place] [address] Nov, [facility] [place] [facility] [address] [id number] [place] [address] Nov, [facility] [place] [facility] [address] [id number] [place] [address] Nov, [facility] [place] [facility] [address] [id number] [place] [address] Nov, [facility] [place] [facility] [address] [id number] [place] [address] Oct, [facility] [place] [facility] [address] [id number] [place] [address] Oct, [facility] [place] [facility] [address] [id number] [place] [address] Sep, [facility] [place] [facility] [address] [id number] [place] [address] Sep, [facility] [place] [facility] [address] [id number] [place] [address] Sep, [facility] [place] [facility] [address] [id number] [place] [address] Sep, [facility] [place] [facility] [address] [id number] [place] [address] Aug, [facility] [place] [facility] [address] [id number] [place] [address] Aug, [facility] [place] [facility] [address] [id number] [place] [address] Aug, [facility] [place] [facility] [address] [id number] [place] [address] Aug, [facility] [place] [facility] [address] [id number] [place] [address] Aug, [facility] [place] [facility] [address] [id number] [place] [address] Aug, [facility] [place] [facility] [address] [id number] [place] [address] Aug, [facility] [place] [facility] [address] [id number], [place] [address] Jul, [facility] [place] [facility] [address] [id number] [place] [address] Jul, [facility] [place] [facility] [address] [id number] [place] [address] Jul, [facility] [place] [facility] [address] [id number] [place] [address] Jul, [facility] [place] [facility] [address] [id number] [place] [address] Jul, [facility] [place] [facility] [address] [id number] [place] [address] 12 Jul, 2013 [facility] [place] [facility] [address] [id number] [place] [address] 08 Jul, 2013 [facility] [place] [facility] [address] [address] [id number] [place] [address] 31 Jun, 2013 [facility] [place] [facility] [address] [id number] [place] [address] 30 Jun, 2013 [facility] [place] [facility] [address] [id number] [place] [address] 30 Jun, 2013 [facility] [place] [facility] [address] [id number] [place] [address] Jun, [facility] [place] [facility] [address] [id number] [place] [address] 24 Jul, 2010 [facility] [place] [facility] [address] [id number] [place] [address] 16 Jul, 2010 [facility] [place] [facility] [address] [id number] [place] [address] Jul, [facility] [place] [facility] [address] [id number] [place] [address] Jul, [facility] [place] [facility] [address] [id number] [place] [address] 26 Jun, 2010 [facility] [place] [facility] [address] [id number] [place] [address] 31 Jun, 2009 [facility] [place] [facility] [address] [id number] [place] [address] 29 Jun, 2009 [facility] [place] [facility] [address] [id number] [place] [address] 28 Jun, 2009 [facility] [place] [facility] [address] [id number] [place] [address] 15 Jun, 2009 [facility] [place] [facility] [address] [id number] [place] [address] Mar, [facility] [address] [facility] [id number] [place] [address] January, IMMUNIZATIONS No Known Immunizations SOCIAL HISTORY Never Assessed REASON FOR VISIT Lab (walk-in)-[facility] PLAN OF CARE Activity Details Pending Test LITHIUM (ESKALITH(R)), SERUM VITAL SIGNS MEDICATIONS Unknown Medications RESULTS No Results PROCEDURES Procedure Date Ordered Result Body Site LAB NOT BILLED BY [facility] Aug 30, 2018 VENIPUNCT, ROUTINE* Aug 30, 2018 INSTRUCTIONS MEDICATIONS ADMINISTERED No Known Medications MEDICAL [...] child Hospitalization History low blood pressure--[facility] 12/2017
--- OUTSIDE RECORDS SUMMARY | 2019-04-09 01:27 | XMS REPORT ---
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 Active 43131262 Problem Chronic pain G89.29 Active 62924942 Problem Environmental allergies Z91.09 Active 305016490 Problem Bipolar I disorder F31.9 Active 742086621 Problem Obsessive-compulsive disorder, unspecified type F42.9 Active 997736630 Problem Cervicalgia M54.2 Active 206217006 Problem Hypertension I10 Active 93969488 Problem Tobacco abuse Z72.0 Active 02984198 Problem Dyslipidemia E78.5 Active 466891592 ALLERGIES Substance Reaction Event Type Date Status Zoloft hypotension Drug Allergy Jul, Active Wellbutrin jittery Drug Allergy Jul, Active Tramadol HCl anaphylaxis Drug Allergy Jul, Active Tetracycline HCl rash Drug Allergy Jul, Active Sulfamethoxazole-Trimethoprim Unknown Drug Allergy Jul, Active Penicillin V Potassium rash Drug Allergy Jul, Active Morphine Sulfate anaphylaxis Drug Allergy Jul, Active Doxycycline Hyclate rash Drug Allergy Jul, Active Wasp/hornet/bee stings anaphylaxis Non Drug Allergy Jul, Active ENCOUNTERS Encounter Location Date Diagnosis [facility] [address] [facility] [id number] [place] [id number] Aug, [facility] [address] [facility] [id number] [place] [id number] Aug, [facility] [address] [facility] [id number] [place] [id number] Jul, Chronic pain G89.29 [facility] [address] [facility] [id number] [id number] Jul, [facility] [address] [facility] [id number] [id number] Jul, Bipolar I disorder F31.9 and Obsessive-compulsive disorder, unspecified type F42.9 [facility] [address] [id number] [address] Jul, GERD (gastroesophageal reflux disease) K21.9 ; Hypertension I10 ; 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 ; Chronic pain G89.29 ; Dyslipidemia E78.5 ; Environmental allergies Z91.09 and Encounter for immunization Z23 [facility] [address] [facility] [id number] [id number] Jun, Chronic pain G89.29 [facility] [place] [address]005[address] [id number] Jun, [address] [id number] [id number] Jun, [facility] [address]00565[address] [address] Jun, Dyslipidemia E78.5 [address]005[address] [id number] Jun, Chronic pain G89.29 [address]00565[address] [id number] May, [address]00565[address] [address] May, Chronic pain G89.29 ; Tobacco abuse Z72.0 ; High risk medication use Z79.899 ; Dyslipidemia E78.5 ; Hepatitis C B19.20 ; Hypertension I10 ; Environmental allergies Z91.09 ; Anxiety F41.9 ; 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 and GERD (gastroesophageal reflux disease) K21.9 [address] [id number] [address] Apr, Chronic pain G89.29 [facility] [address] [id number] [address] Mar, Costochondral separation, initial encounter S23.29XA and Injury of toe on left foot, initial encounter S99.922A [address] [id number] Mar, Chronic pain G89.29 [facility] [address] [address] Feb, Poison elda L23.[address] [id number] Feb, Chronic pain G89.29 [place] [address] [address] Feb, Bronchitis J40 [address] [id number] Feb, [address] [id number] Feb, Chronic pain G89.[address] [id number] January, Vaginal discharge N89.8 ; Increased urinary frequency R35.0 ; Acute cystitis with hematuria N30.01 ; Other specified bacterial agents as the cause of diseases classified elsewhere B96.89 and Acute vaginitis N76.[address] [id number] January, Chronic pain G89.29 and Candidiasis B37.9 [facility] [address] [address] January, [facility] [address] [address] Dec, Acute frontal sinusitis, recurrence not specified J01.10 and Cough R05 [address] [id number] Dec, [address] [id number] Nov, [facility] [address] [address] Nov, Bronchitis J40 [facility] [address] [id number] [id number] Nov, [facility] [address] [place] [address] Oct, COPD with acute exacerbation J44.1 [facility] [id number] [address] Oct, Chronic pain G89.29 [facility] [id number] [id number] Oct, [facility] [address] [id number] [address] Sep, Chronic pain G89.29 ; Depression F32.9 ; Anxiety F41.9 ; 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 and Flu-like symptoms R68.89 [facility] [id number] [place] [address] Aug, Chronic pain G89.29 ; Open bite of other finger without damage to nail, initial encounter S61.258A and Bitten by dog, initial encounter W54.0XXA [place] [id number] [place] [address] Jul, Menopause Z78.0 ; Ankle swelling, unspecified laterality M25.473 ; Chronic pain G89.29 and Tobacco abuse Z72.0 [facility] [address] [place] [address] Jun, [facility] [id number] [place] [address] Jun, Chronic pain G89.29 [facility] [id number] [place] [address] May, Dysuria R30.0 ; Dehydration E86.0 and Hypertension I10 [place] [id number] [place] [address] May, Menopause Z78.0 ; Depression F32.9 ; Chronic pain G89.29 ; Environmental allergies Z91.09 ; 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 and Encounter for immunization Z23 [facility] [id number] [place] [address] May, Chronic pain G89.29 [facility] [id number] [place] [address] Apr, Chronic pain G89.29 [facility] [id number] [place] [address] Apr, Routine gynecological examination Z01.419 [facility] [id number] [place] [address] Mar, Chronic pain G89.29 [facility] [id number] [place] [address] Feb, [facility] [address] [address] Feb, Chronic pain G89.29 [facility] [id number] [place] [address] Feb, [facility] [id number] [place] [address] January, Chronic pain G89.29 [facility] [id number] [place] [address] January, Routine gynecological examination Z01.419 and Breast cancer screening Z12.39 [facility] [id number] [place] [address] January, Chronic pain G89.29 [facility] [id number] [place] [address] Dec, Postmenopausal HRT (hormone replacement therapy) Z79.890 [facility] [id number] [place] [address] Dec, [facility] [id number] [place] [address] Nov, Chronic pain G89.29 [place] [address] [address] 30 Nov, 2016 Chronic headaches R51 ; [...] finger, with routine healing, subsequent encounter S62.639D [place] [address] [address] Nov, [place] [address] [address] Nov, [place] [address] [address] Nov, [place] [address] [address] Nov, Hypertension I10 [place] [address] [address] Nov, [place] [address] [address] Nov, [place] [address] [address] Oct, Anxiety F41.9 [place] [address] [address] Oct, [place] [address] [address] Oct, Acute upper respiratory infection, unspecified J06.9 and Other viral agents as the cause of diseases classified elsewhere B97.89 [place] [address] [place] [id number] Oct, [facility] [address]100[place] [address] Oct, Right acute serous otitis media, recurrence not specified H65.01 and Pharyngitis, unspecified etiology J02.9 [facility] [address] [id number] [address] Sep, [facility] [id number] [place] [address] Aug, Environmental allergies Z91.09 [facility] [id number] [place] [address] Aug, [facility] [id number] [place] [address] Jul, Atypical nevi D22.9 [facility] [id number] [place] [address] Jul, [facility] [id number] [place] [address] Jul, [facility] [id number] [place] [address] Jul, [facility] [address] [address] Jun, [facility] [address] [place] [address] May, [facility] [address] [address] 13 May, 2016 [facility] [id number] [place] [address] 09 May, 2016 [facility] [address] [address] Apr, [facility] [address] [place] [address] Apr, Chronic headaches R51 ; GERD (gastroesophageal reflux disease) K21.9 ; Hypertension I10 ; 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 ; Anxiety F41.9 ; COPD with acute exacerbation J44.1 ; Environmental allergies Z91.09 ; Depression F32.9 and Chronic pain G89.29 [facility] [id number] [place] [address] Feb, Chronic headaches R51 and Chronic pain G89.29 [facility] [address] [address] January, Chronic pain G89.29 and Anxiety F41.9 [place] [address] [address] January, Depression F32.9 and Hypertension I10 [place] [address] [address] January, Chronic pain G89.29 [facility] [address] [address] Dec, [facility] [address] [address] Dec, [facility] [id number] [place] [address] Dec, Chronic headaches R51 ; Chronic pain G89.29 ; Environmental allergies Z91.09 ; GERD (gastroesophageal reflux disease) K21.9 ; Insomnia G47.00 ; Hypertension I10 and COPD with acute exacerbation J44.1 [facility] [id number] [place] [address] Dec, [place] [address] [address] Dec, Chest pain R07.9 ; GERD (gastroesophageal reflux disease) K21.9 and Nausea R11.0 [place] [address] [address] Nov, [place] [address] [place] [address] Oct, COPD with acute exacerbation J44.1 ; Chronic headaches R51 ; GERD (gastroesophageal reflux disease) K21.9 ; Insomnia G47.00 ; Hypertension I10 ; Depression F32.9 and Anxiety F41.9 [place] [id number] [place] [address] Oct, [place] [address] [address] Oct, [place] [address] [address] Oct, [place] [address] [address] Oct, [place] [address] [address] Oct, Flu-like symptoms R68.89 and COPD with acute exacerbation J44.1 [place] [id number] [place] [address] Oct, [place] [id number] [place] [address] Oct, Left shoulder pain M25.512 ; Chronic headaches R51 ; Environmental allergies Z91.09 ; GERD (gastroesophageal reflux disease) K21.9 ; Insomnia G47.00 ; Hypertension I10 ; Depression F32.9 and 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 [place] [id number] [place] [address] Sep, [place] [address] [address] Sep, COPD (chronic obstructive pulmonary disease) J44.9 [place] [id number] [place] [address] Sep, Bronchitis J40 [place] [id number] [place] [address] Aug, Cervicalgia 723.1 ; Chronic hepatitis C without mention of hepatic coma 070.54 ; Essential hypertension 401.9 ; Chronic headaches R51 ; Environmental allergies Z91.09 ; GERD (gastroesophageal reflux disease) K21.9 ; Insomnia G47.00 ; Depression F32.9 and COPD (chronic obstructive pulmonary disease) J44.[address] [address] Jul, Essential hypertension 401.9 ; Hypertension I10 ; Depression F32.9 ; Anxiety F41.9 ; Chronic headaches R51 and Cervicalgia M54.[address] [address] Jul, Essential hypertension 401.9 and Anxiety F41.[address] [address] Jul, [address] [address] Jul, [address] [address] Jul, Insomnia G47.00 ; GERD (gastroesophageal reflux disease) K21.9 ; Essential hypertension 401.9 ; Bipolar I disorder, most recent episode (or current) depressed, moderate 296.52 ; Hepatitis C B19.20 ; Depression F32.9 ; Hypertension I10 ; 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 ; Chronic headaches R51 and Chronic pain G89.29 [place] [id number] [place] [address] Jun, [address] [address] Jun, Chronic headaches R51 ; Environmental allergies Z91.09 ; GERD (gastroesophageal reflux disease) K21.9 ; Insomnia G47.00 ; Hepatitis C B19.20 ; Hypertension I10 ; Depression F32.9 ; 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 and Chronic pain G89.29 [facility] [id number] [place] [address] Jun, [facility] [id number] [place] [address] Jun, Vision changes H53.9 [facility] [address] [place] [address] Apr, [facility] [address] [address] Apr, Bipolar I disorder, most recent episode (or current) depressed, moderate 296.52 ; Other chronic pain 338.29 ; Chronic hepatitis C without mention of hepatic coma 070.54 ; Essential hypertension 401.9 ; Environmental allergies V15.09 and GERD (gastroesophageal reflux disease) 530.[address] [address] Mar, [facility] [id number] [place] [address] Mar, [facility] [address] [place] [address] [place] [address] Mar, [facility] [id number] [place] [address] Mar, [facility] [address] [place] [address] [place] [address] Mar, [facility] [address] [place] [address] [place] [address] Feb, Routine gynecological examination V72.31 ; Breast cancer screening V76.10 and Tobacco abuse 305.1 [facility] [address] [place] [address] Feb, [facility] [id number] [place] [address] January, [facility] [address] [place] [address] January, [facility] [address] [place] [address] January, [facility] [id number] [place] [address] January, [facility] [id number] [place] [address] January, Mood disorder 296.90 and Anxiety 300.00 [facility] [id number] [place] [address] January, [facility] [id number] [place] [address] Dec, Headache 784.0 ; Other chronic pain 338.29 and Cervicalgia 723.1 [facility] [id number] [place] [address] Dec, [facility] [address] [id number] [address] Dec, [facility] [id number] [place] [address] Nov, [facility] [address] [id number] [address] Nov, [facility] [address] [address] Oct, [facility] [address] [address] Oct, [facility] [address] [address] Oct, [facility] [address] [address] Oct, [facility] [address] [address] Oct, [facility] [place] [facility] [address] [id number] [place] [address] Oct, [facility] [place] [facility] [address] [id number] [place] [address] Oct, [facility] [place] [facility] [address] [id number] [place] [address] 19 Oct, 2014 [facility] [place] [facility] [address] [id number] [place] [address] 18 Oct, 2014 [facility] [place] [facility] [address] [id number] [place] [address] 18 Oct, 2014 [facility] [place] [facility] [address] [id number] [place] [address] Oct, [facility] [place] [facility] [address] [id number] [place] [address] Oct, [facility] [place] [facility] [address] [id number] [place] [address] Sep, [facility] [place] [facility] [address] [id number] [place] [address] Sep, [facility] [place] [facility] [address] [id number] [place] [address] Sep, [facility] [place] [facility] [address] [id number] [address] 15 Sep, 2014 [facility] [place] [facility] [address] [id number] [address] 15 Sep, 2014 [facility] [place] [facility] [address] [id number] [place] [address] 14 Sep, 2014 [facility] [place] [facility] [address] [id number] [place] [address] 14 Sep, 2014 [facility] [place] [facility] [address] [id number] [place] [address] 14 Sep, 2014 [facility] [place] [facility] [address] [id number] [place] [address] Sep, [facility] [address] [id number] [place] [address] Sep, [facility] [place] [facility] [address] [id number] [place] [address] Sep, [facility] [place] [facility] [address] [id number] [place] [address] Sep, [facility] [place] [facility] [address] [id number] [place] [address] Sep, [facility] [place] [facility] [address] [id number] [place] [address] Sep, [facility] [place] [facility] [address] [id number] [place] [address] Aug, [facility] [address] [id number] [place] [address] Aug, [facility] [place] [facility] [address] [id number] [place] [address] Aug, [facility] [place] [facility] [address] [id number] [place] [address] Aug, [facility] [place] [facility] [address] [id number] [place] [address] Aug, [facility] [place] [facility] [address] [id number] [place] [address] Aug, [facility] [place] [facility] [address] [id number] [place] [address] Aug, [facility] [place] [facility] [address] [id number] [place] [address] Aug, [facility] [place] [facility] [address] [id number] [place] [address] Aug, [facility] [place] [facility] [address] [id number] [place] [address] Aug, [facility] [place] [facility] [address] [id number] [place] [address] Aug, [facility] [place] [facility] [address] [id number] [place] [address] Aug, [facility] [place] [facility] [address] [id number] [place] [address] Aug, [facility] [place] [facility] [address] [id number] [place] [address] Jul, [facility] [place] [facility] [address] [id number] [place] [address] Jul, [facility] [place] [facility] [address] [id number] [place] [address] Feb, [facility] [place] [facility] [address] [id number] [place] [address] Feb, [facility] [place] [facility] [address] [id number] [place] [address] January, [facility] [place] [facility] [address] [id number] [place] [address] January, [facility] [place] [facility] [address] [id number] [place] [address] January, [facility] [place] [facility] [address] [id number] [place] [address] January, [facility] [place] [facility] [address] [id number] [place] [address] Nov, [facility] [place] [facility] [address] [id number] [place] [address] Nov, [facility] [place] [facility] [address] [id number] [place] [address] Nov, [facility] [place] [facility] [address] [id number] [place] [address] Nov, [facility] [place] [facility] [address] [id number] [place] [address] Oct, [facility] [address] [id number] [place] [address] Oct, [facility] [place] [facility] [address] [id number] [place] [address] Sep, [facility] [place] [facility] [address] [facility] [id number] [place] [address] Sep, [facility] [place] [facility] [address] [id number] [place] [address] Sep, [facility] [place] [facility] [address] [id number] [place] [address] Sep, [facility] [place] [facility] [address] [id number] [place] [address] Aug, [facility] [address] [facility] [id number] [place] [address] Aug, [facility] [place] [facility] [address] [facility] [id number] [place] [address] Aug, [facility] [place] [facility] [address] [facility] [id number] [place] [address] Aug, [facility] [place] [facility] [address] [facility] [id number] [place] [address] Aug, [facility] [place] [facility] [address] [facility] [id number] [place] [address] Aug, [facility] [place] [facility] [address] [id number] [place] [address] Aug, [facility] [place] [facility] [address] [id number] [place] [address] Jul, [facility] [place] [facility] [address] [facility] [id number] [place] [address] Jul, [facility] [place] [facility] [address] [facility] [id number] [place] [address] Jul, [facility] [place] [facility] [address] [address] [id number] [place] [address] 13 Jul, 2013 [facility] [place] [facility] [address] [id number] [place] [address] 13 Jul, 2013 [facility] [place] [facility] [address] [id number] [place] [address] Jul, [facility] [place] [facility] [address] [id number] [place] [address] 08 Jul, 2013 [facility] [place] [facility] [address] [id number] [place] [address] Jun, [facility] [place] [facility] [address] [id number] [place] [address] Jun, [facility] [place] [facility] [address] [id number] [place] [address] Jun, [facility] [place] [facility] [address] [id number] [place] [address] Jun, [facility] [place] [facility] [address] [id number] [place] [address] 24 Jul, 2010 [facility] [place] [facility] [address] [id number] [place] [address] 16 Jul, 2010 [facility] [place] [facility] [address] [facility] [id number] [place] [address] Jul, [facility] [place] [facility] [address] [id number] [place] [address] Jul, [facility] [place] [facility] [address] [id number] [place] [address] Jun, [facility] [place] [facility] [address] [id number] [place] [address] 31 Jun, 2009 [facility] [place] [facility] [address] [id number] [place] [address] Jun, [facility] [place] [facility] [address] [id number] [place] [address] Jun, [facility] [address] [facility] [id number] [place] [address] Jun, [facility] [address] [facility] [id number] [place] [address] Mar, [facility] [address] [facility] [id number] [place] [address] January, IMMUNIZATIONS No Known Immunizations SOCIAL HISTORY Never Assessed REASON FOR VISIT Luis Manuel,RN PLAN OF CARE Activity Details Follow Up 3 weeks Reason:bipolar disorder VITAL SIGNS Height 65.2 in 2018-08-17 Weight 138 lbs 2018-08-17 Temperature 97.3 degrees Fahrenheit 2018-08-17 Heart Rate 68 bpm 2018-08-17 Respiratory Rate 18 2018-08-17 BMI 22.82 kg/m2 2018-08-17 Blood pressure systolic 118 mmHg 2018-08-17 Blood pressure diastolic 74 mmHg 2018-08-17 MEDICATIONS Medication Instructions Dosage Frequency Start Date End Date Duration Status Lisinopril 2.5 MG Orally Once a day 1 tablet 24h May, 30 day(s) Active Tizanidine HCl 4 MG Orally Three times a day 1 tablet as needed 8h May, 90 days Active [place] Carbonate 300 MG Orally twice a day 1 capsule at bedtime 12h Jul, 30 day(s) Active Coreg 3.125 MG Orally 2 times a day 1 tablet 12h May, 30 days Active Oxycodone-Acetaminophen 5-325 MG Orally 3 times a day 1 tablet as needed 8h Jun, 0 days Active Symbicort 160-4.5 mcg/act Inhalation Twice a day inhale 2 puffs by Inhalation route in the morning and evening 2 times per day 12h Jul, 90 days Active EPINEPHrine 0.3 MG/0.3ML Injection PRN as directed Apr, Active Pantoprazole Sodium 20 mg Orally Once a day 1 tablet 24h Jul, 90 days Active Venlafaxine HCl ER 75 MG Orally Once a day 1 capsule with food 24h May, 90 days Active Crestor 40 mg Orally Once a day 1 tablet 24h Jul, 90 days Active ProAir HFA 108 (90 Base) MCG/ACT Inhalation every 6 hrs 2 puffs as needed 6h May, 30 days Active Flonase 50 mcg/act Nasally Once a day 1 sprays by Nasal route 2 times per day in each nostril 24h Nov, 12 months Active Hydrochlorothiazide 25 MG Orally Once a day 1 tablet in the morning if blood pressure uncontrolled 24h May, 30 day(s) Active Albuterol Sulfate (2.5 MG/3ML) 0.083% Inhalation Three times a day 3 ml 8h Oct, Active Trazodone HCl 100MG Orally Once a day 1 tablet at bedtime 24h 90 days Active RESULTS No Results PROCEDURES No [...] thumb 1998 Surgical History carpal tunnel release Surgical History hysterectomy; partial 1998 Surgical History C3-C7 fusion w/ discectomy-[facility] 01/2015 Surgical History Heart Cath 01/18/16 Hospitalization History surgeries Hospitalization History chest pain 01/17/16 Hospitalization History child Hospitalization History low blood pressure[facility] 12/2017
--- OUTSIDE RECORDS SUMMARY | 2019-04-09 01:28 | XMS REPORT ---
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 Active 55854796 Problem Chronic pain G89.29 Active 22522593 Problem Environmental allergies Z91.09 Active 834928490 Problem Bipolar I disorder F31.9 Active 740175487 Problem Obsessive-compulsive disorder, unspecified type F42.9 Active 506861389 Problem Cervicalgia M54.2 Active 906721968 Problem Hypertension I10 Active 04115798 Problem Tobacco abuse Z72.0 Active 08522757 Problem Dyslipidemia E78.5 Active 622897440 ALLERGIES No Information ENCOUNTERS Encounter Location Date Diagnosis [facility] [place] [address] [id number] [place] [id number] Aug, [facility] [place] [address] [id number] [place] [id number] Aug, [facility] [place] [address] [id number] [place] [id number] Jul, Chronic pain G89.29 [facility] [place] [address] [id number] [place] [id number] Jul, [facility] [place] [address] [id number] [place] [id number] Jul, Bipolar I disorder F31.9 and Obsessive-compulsive disorder, unspecified type F42.9 [facility] [place] [address] [id number] [place] [id number] 15 Jul, 2018 GERD (gastroesophageal reflux disease) K21.9 ; Hypertension I10 ; 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 ; Chronic pain G89.29 ; Dyslipidemia E78.5 ; Environmental allergies Z91.09 and Encounter for immunization Z23 [address] [place] [address] [id number] Jun, Chronic pain G89.29 [address] [place] [address] [id number] Jun, [address] [id number] [id number] Jun, [place] [id number] [place] [address] [id number] Jun, Dyslipidemia E78.5 [place] [id number] [place] [address] [id number] Jun, Chronic pain G89.29 [place] [id number] [place] [address] [id number] May, [place] [id number] [place] [address] [id number] May, Chronic pain G89.29 ; Tobacco abuse Z72.0 ; High risk medication use Z79.899 ; Dyslipidemia E78.5 ; Hepatitis C B19.20 ; Hypertension I10 ; Environmental allergies Z91.09 ; Anxiety F41.9 ; 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 and GERD (gastroesophageal reflux disease) K21.9 [address] [place] [address] [id number] Apr, Chronic pain G89.29 [place] [address] [address] Mar, Costochondral separation, initial encounter S23.29XA and Injury of toe on left foot, initial encounter S99.922A [place] [id number] [place] [address] [id number] Mar, Chronic pain G89.29 [facility] [id number] [place] [address] Feb, Poison elda L23.7 [place] [id number] [place] [address] [id number] Feb, Chronic pain G89.29 [facility] [id number] [place] [address] Feb, Bronchitis J40 [place] [id number] [place] [address] [id number] Feb, [place] [id number] [place] [address] [id number] Feb, Chronic pain G89.[address] [id number] January, Vaginal discharge N89.8 ; Increased urinary frequency R35.0 ; Acute cystitis with hematuria N30.01 ; Other specified bacterial agents as the cause of diseases classified elsewhere B96.89 and Acute vaginitis N76.0 [place] [id number] [place] [address] [id number] January, Chronic pain G89.29 and Candidiasis B37.9 [facility] [address] [place] [id number] [place] [address] January, [facility] [id number] [place] [address] Dec, Acute frontal sinusitis, recurrence not specified J01.10 and Cough R05 [place] [id number] [place] [address] [id number] Dec, [place] [id number] [place] [address] [id number] Nov, [facility] [id number] [place] [address] Nov, Bronchitis J40 [place] [id number] [facility] [id number] [id number] Nov, [facility] [id number] [place] [address] Oct, COPD with acute exacerbation J44.1 [place] [id number] [place] [address] [id number] Oct, Chronic pain G89.29 [id number] [id number] Oct, [facility] [address] [id number] [id number] Sep, Chronic pain G89.29 ; Depression F32.9 ; Anxiety F41.9 ; 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 and Flu-like symptoms R68.89 [facility] [id number] [place] [address] Aug, Chronic pain G89.29 ; Open bite of other finger without damage to nail, initial encounter S61.258A and Bitten by dog, initial encounter W54.0XXA [address] [address] Jul, Menopause Z78.0 ; Ankle swelling, unspecified laterality M25.473 ; Chronic pain G89.29 and Tobacco abuse Z72.0 [facility] [address] [address] Jun, [place] [address] [address] Jun, Chronic pain G89.29 [facility] [id number] [place] [address] May, Dysuria R30.0 ; Dehydration E86.0 and Hypertension I10 [address] [address] May, Menopause Z78.0 ; Depression F32.9 ; Chronic pain G89.29 ; Environmental allergies Z91.09 ; 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 and Encounter for immunization Z23 [address] [address] May, Chronic pain G89.29 [place] [address] [address] Apr, Chronic pain G89.[id number] [place] [address] Apr, Routine gynecological examination Z01.419 [place] [address] [address] [id number] [place] [address] Mar, Chronic pain G89.29 [place] [address] [id number] [place] [address] Feb, [place] [address] [address] [id number] [place] [address] Feb, Chronic pain G89.29 [place] [address] [place] [id number] [place] [address] Feb, [place] [address] [id number] [place] [address] January, Chronic pain G89.29 [place] [address] [id number] [place] [address] January, Routine gynecological examination Z01.419 and Breast cancer screening Z12.39 [place] [address] [id number] [place] [address] January, Chronic pain G89.29 [place] [address] [id number] [place] [address] Dec, Postmenopausal HRT (hormone replacement therapy) Z79.890 [place] [address] [place] [id number] [place] [address] Dec, [place] [address] [address] [id number] [place] [address] Nov, Chronic pain G89.29 [place] [address] [id number] [place] [address] Nov, Chronic headaches R51 ; GERD (gastroesophageal reflux disease) K21.9 ; Hypertension I10 ; 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 ; Hepatitis C B19.20 ; Chronic pain G89.29 ; Pain of right thumb M79.644 ; Insomnia G47.00 ; Depression F32.9 ; Environmental allergies Z91.09 and Closed fracture of tuft of distal phalanx of finger, with routine healing, subsequent encounter S62.639D [facility] [id number] [place] [address] 15 Nov, 2016 [facility] [id number] [place] [address] Nov, [facility] [id number] [place] [address] Nov, [facility] [id number] [place] [address] Nov, Hypertension I10 [place] [id number] [place] [address] Nov, [place] [id number] [place] [address] Nov, [place] [address] [id number] [place] [address] Oct, Anxiety F41.9 [place] [address] [id number] [place] [address] Oct, [place] [address] [place] [id number] [place] [address] Oct, Acute upper respiratory infection, unspecified J06.9 and Other viral agents as the cause of diseases classified elsewhere B97.89 [place] [address] [id number] [place] [address] Oct, [place] [address] [id number] [place] [address] Oct, Right acute serous otitis media, recurrence not specified H65.01 and Pharyngitis, unspecified etiology J02.9 [place] [address] [id number] [place] [address] Sep, [place] [address] [address] Aug, Environmental allergies Z91.09 [facility] [id number] [place] [address] Aug, [facility] [address], [place] [address] Jul, Atypical nevi D22.9 [facility] [id number] [place] [address] 15 Jul, 2016 [facility] [id number] [place] [address] Jul, [facility] [id number] [place] [address] Jul, [facility] [id number] [place] [address] Jun, [facility] [id number] [place] [address] May, [facility] [id number] [place] [address] May, [facility] [id number] [place] [address] May, [facility] [address], [place] [address] Apr, [facility] [address], [place] [address] Apr, Chronic headaches R51 ; GERD (gastroesophageal reflux disease) K21.9 ; Hypertension I10 ; 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 ; Anxiety F41.9 ; COPD with acute exacerbation J44.1 ; Environmental allergies Z91.09 ; Depression F32.9 and Chronic pain G89.29 [facility] [address], [place] [address] Feb, Chronic headaches R51 and Chronic pain G89.29 [facility] [id number] [place] [address] January, Chronic pain G89.29 and Anxiety F41.9 [place] [id number] [place] [address] January, Depression F32.9 and Hypertension I10 [place] [address] [address] January, Chronic pain G89.29 [place] [address] [id number] [place] [address] Dec, [place] [address] [address] Dec, [place] [id number] [place] [address] Dec, Chronic headaches R51 ; Chronic pain G89.29 ; Environmental allergies Z91.09 ; GERD (gastroesophageal reflux disease) K21.9 ; Insomnia G47.00 ; Hypertension I10 and COPD with acute exacerbation J44.1 [place] [address] [address] Dec, [place] [address] [place] [id number] [place] [address] Dec, Chest pain R07.9 ; GERD (gastroesophageal reflux disease) K21.9 and Nausea R11.0 [place] [id number] [place] [address] Nov, [place] [id number] [place] [address] Oct, COPD with acute exacerbation J44.1 ; Chronic headaches R51 ; GERD (gastroesophageal reflux disease) K21.9 ; Insomnia G47.00 ; Hypertension I10 ; Depression F32.9 and Anxiety F41.9 [place] [id number] [place] [address] Oct, [place] [id number] [place] [address] Oct, [place] [address] [id number] [place] [address] Oct, [place] [address] [place] [id number] [place] [address] Oct, [address] [address] Oct, Flu-like symptoms R68.89 and COPD with acute exacerbation J44.[address] [address] Oct, [place] [id number] [place] [address] Oct, Left shoulder pain M25.512 ; Chronic headaches R51 ; Environmental allergies Z91.09 ; GERD (gastroesophageal reflux disease) K21.9 ; Insomnia G47.00 ; Hypertension I10 ; Depression F32.9 and 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 [place] [id number] [place] [address] Sep, [place] [id number] [place] [address] Sep, COPD (chronic obstructive pulmonary disease) J44.9 [place] [id number] [place] [address] Sep, Bronchitis J40 [place] [id number] [place] [address] Aug, Cervicalgia 723.1 ; Chronic hepatitis C without mention of hepatic coma 070.54 ; Essential hypertension 401.9 ; Chronic headaches R51 ; Environmental allergies Z91.09 ; GERD (gastroesophageal reflux disease) K21.9 ; Insomnia G47.00 ; Depression F32.9 and COPD (chronic obstructive pulmonary disease) J44.9 [place] [id number] [place] [address] Jul, Essential hypertension 401.9 ; Hypertension I10 ; Depression F32.9 ; Anxiety F41.9 ; Chronic headaches R51 and Cervicalgia M54.2 [place] [id number] [place] [address] Jul, Essential hypertension 401.9 and Anxiety F41.[address] [address] Jul, [address] [address] Jul, [address] [address] Jul, Insomnia G47.00 ; GERD (gastroesophageal reflux disease) K21.9 ; Essential hypertension 401.9 ; Bipolar I disorder, most recent episode (or current) depressed, moderate 296.52 ; Hepatitis C B19.20 ; Depression F32.9 ; Hypertension I10 ; 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 ; Chronic headaches R51 and Chronic pain G89.29 [place] [id number] [place] [address] Jun, [place] [id number] [place] [address] Jun, Chronic headaches R51 ; Environmental allergies Z91.09 ; GERD (gastroesophageal reflux disease) K21.9 ; Insomnia G47.00 ; Hepatitis C B19.20 ; Hypertension I10 ; Depression F32.9 ; 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 and Chronic pain G89.[address] [address] Jun, [address] [address] Jun, Vision changes H53.[address] [address] Apr, [facility] [address], [place] [address] Apr, Bipolar I disorder, most recent episode (or current) depressed, moderate 296.52 ; Other chronic pain 338.29 ; Chronic hepatitis C without mention of hepatic coma 070.54 ; Essential hypertension 401.9 ; Environmental allergies V15.09 and GERD (gastroesophageal reflux disease) 530.81 [facility] [id number] [place] [address] Mar, [facility] [address] [id number], [place] [address] Mar, [facility] [id number] [place] [address] Mar, [facility] [id number] [place] [address] Mar, [facility] [id number] [place] [address] Mar, [facility] [address], [place] [address] Feb, Routine gynecological examination V72.31 ; Breast cancer screening V76.10 and Tobacco abuse 305.1 [facility] [address], [place] [address] Feb, [facility] [address], [place] [address] January, [facility] [address], [place] [address] January, [facility] [id number] [place] [address] January, [facility] [address], [place] [address] January, [facility] [address] [id number] [address] January, Mood disorder 296.90 and Anxiety 300.00 [facility] [address], [place] [address] January, [facility] [id number] [place] [address] Dec, Headache 784.0 ; Other chronic pain 338.29 and Cervicalgia 723.1 [facility] [id number] [place] [address] Dec, [facility] [id number] [place] [address] Dec, [facility] [id number] [place] [address] Nov, [facility] [id number] [place] [address] Nov, [facility] [id number] [place] [address] Oct, [facility] [address], [place] [address] Oct, [facility] [id number] [place] [address] Oct, [facility] [address], [place] [address] Oct, [facility] [address], [place] [address] Oct, [facility] [address], [place] [address] Oct, [facility] [address] [place] [address] Oct, [facility] [address], [place] [address] Oct, [facility] [id number] [address] 18 Oct, 2014 [facility] [place] [facility] [address] [id number] [place] [address] 18 Oct, 2014 [facility] [place] [facility] [address] [id number] [place] [address] 17 Oct, 2014 [facility] [place] [facility] [address] [id number] [place] [address] 17 Oct, 2014 [facility] [place] [facility] [address] [id number] [place] [address] 20 Sep, 2014 [facility] [place] [facility] [address] [id number] [place] [address] Sep, [facility] [place] [facility] [address] [id number] [place] [address] Sep, [facility] [place] [facility] [address] [id number] [place] [address] Sep, [facility] [place] [facility] [address] [id number] [place] [address] Sep, [facility] [place] [facility] [address] [id number] [place] [address] Sep, [facility] [place] [facility] [address] [id number] [place] [address] Sep, [facility] [place] [facility] [address] [id number] [place] [address] Sep, [facility] [place] [facility] [address] [id number] [place] [address] Sep, [facility] [place] [facility] [address] [id number] [place] [address] Sep, [facility] [place] [facility] [address] [id number] [place] [address] Sep, [facility] [place] [facility] [address] [id number] [place] [address] Sep, [facility] [place] [facility] [address] [id number] [place] [address] Sep, [facility] [place] [facility] [address] [id number] [place] [address] Sep, [facility] [place] [facility] [address] [id number] [place] [address] Aug, [facility] [place] [facility] [address] [id number] [place] [address] Aug, [facility] [place] [facility] [address] [id number] [place] [address] Aug, [facility] [place] [facility] [address] [id number] [place] [address] Aug, [facility] [place] [facility] [address] [id number] [place] [address] Aug, [facility] [place] [facility] [address] [id number] [place] [address] Aug, [facility] [place] [facility] [address] [id number] [place] [address] Aug, [facility] [place] [facility] [address] [id number] [place] [address] Aug, [facility] [place] [facility] [address] [id number] [place] [address] Aug, [facility] [place] [facility] [address] [id number] [place] [address] Aug, [facility] [place] [facility] [address] [id number] [place] [address] Aug, [facility] [place] [facility] [address] [id number] [place] [address] Aug, [facility] [place] [facility] [address] [id number] [place] [address] Aug, [facility] [place] [facility] [address] [id number] [place] [address] Jul, [facility] [place] [facility] [address] [id number] [place] [address] Jul, [facility] [place] [facility] [address] [id number] [place] [address] Feb, [facility] [place] [facility] [address] [id number] [place] [address] Feb, [facility] [place] [facility] [address] [id number] [place] [address] January, [facility] [place] [facility] [address] [id number] [place] [address] January, [facility] [place] [facility] [address] [id number] [place] [address] January, [facility] [place] [facility] [address] [id number] [place] [address] January, [facility] [place] [facility] [address] [id number] [place] [address] Nov, [facility] [place] [facility] [address] [id number] [place] [address] Nov, [facility] [place] [facility] [address] [id number] [place] [address] Nov, [facility] [place] [facility] [address] [id number] [place] [address] Nov, [facility] [place] [facility] [address] [id number] [place] [address] Oct, [facility] [place] [facility] [address] [id number] [place] [address] Oct, [facility] [place] [facility] [address] [id number] [place] [address] Sep, [facility] [place] [facility] [address] [id number] [place] [address] Sep, [facility] [place] [facility] [address] [id number] [place] [address] Sep, [facility] [address] [id number] [place] [address] Sep, [facility] [place] [facility] [address] [id number] [place] [address] Aug, [facility] [place] [facility] [address] [id number] [place] [address] Aug, [facility] [place] [facility] [address] [id number] [place] [address] Aug, [facility] [place] [facility] [address] [id number] [place] [address] Aug, [facility] [address] [id number] [place] [address] Aug, [facility] [place] [facility] [address] [id number] [place] [address] Aug, [facility] [facility] [address] [id number] [place] [address] Aug, [facility] [place] [facility] [address] [id number] [place] [address] Jul, [facility] [place] [facility] [address] [id number] [place] [address] Jul, [facility] [place] [facility] [address] [id number] [place] [address] Jul, [facility] [place] [facility] [address] [id number] [place] [address] Jul, [facility] [place] [facility] [address] [id number] [place] [address] Jul, [facility] [place] [facility] [address] [id number] [place] [address] Jul, [facility] [place] [facility] [address] [id number], [place] [address] Jul, [facility] [address] [facility] [id number], [place] [address] Jun, [facility] [address] [facility] [id number], [place] [address] Jun, [facility] [address] [facility] [id number], [place] [address] Jun, [facility] [address] [facility] [id number], [place] [address] Jun, [facility] [address] [facility] [id number], [place] [address] Jul, [facility] [address] [facility] [id number], [place] [address] Jul, [facility] [address] [facility] [id number], [place] [address] Jul, [facility] [address] [facility] [id number], [place] [address] Jul, [facility] [address] [facility] [id number], [place] [address] Jun, [facility] [address] [facility] [id number], [place] [address] Jun, [facility] [address] [facility] [id number], [place] [address] Jun, [facility] [address] [facility] [id number], [place] [address] Jun, [facility] [address] [facility] [id number], [place] [address] Jun, [facility] [address] [facility] [id number], [place] [address] Mar, [facility] [address] [facility] [id number], [place] [address] January, IMMUNIZATIONS No Known Immunizations SOCIAL HISTORY Never Assessed REASON FOR VISIT oxycodone refill PLAN OF CARE VITAL SIGNS MEDICATIONS Medication Instructions Dosage Frequency Start Date End Date Duration Status Oxycodone-Acetaminophen 5-325 MG Orally 3 times a day 1 tablet 8h Jul, 28 days Active RESULTS No Results PROCEDURES [...] Hospitalization History low blood pressure--via [facility] 12/2017
--- OUTSIDE RECORDS SUMMARY | 2019-04-09 01:29 | XMS REPORT ---
Author Author JUSTO HOROWITZ [facility] Address [address] [place] [address] Care Team Providers Care Manufacturer Name Role Phone JUSTO HOROWITZ Unavailable PROBLEMS Type Condition ICD9-CM Code NXN06-EF Code Onset Dates Condition Status SNOMED Code Problem Cervicalgia M54.2 Active 231678127 Problem COPD with acute exacerbation J44.1 Active 354122483 Problem Anxiety F41.9 Active 86262649 Problem Tobacco abuse Z72.0 Active 66657535 Problem Dyslipidemia E78.5 Active 721756709 Problem Chest pain R07.9 Active 79807277 Problem Nausea R11.0 Active 837068964 Problem Menopause Z78.0 Active 956297128 Problem Postmenopausal HRT (hormone replacement therapy) Z79.890 Active 46295272 Problem Chronic headaches R51 Active 796626360 Problem Hypertension I10 Active 70990472 Problem 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 Active 13993552 Problem Environmental allergies Z91.09 Active 270179654 Problem Insomnia G47.00 Active 116268826 Problem Hepatitis C B19.20 Active 77824702 Problem Depression F32.9 Active 51454335 Problem Chronic pain G89.29 Active 00936351 Problem GERD (gastroesophageal reflux disease) K21.9 Active 565563888 ALLERGIES No Information ENCOUNTERS Encounter Location Date Diagnosis [facility] [address] [id number] [id number] Jul, [facility] [place] [address] [id number] [id number] Jun, Chronic pain G89.29 [facility] [place] [address] [id number][place] [id number] Jun, [facility] [address] [id number] [id number] Jun, [facility] [place] [id number] [place] [address] [id number] Jun, Dyslipidemia E78.5 [facility] [id number] [place] [address] [id number] Jun, Chronic pain G89.29 [facility] [id number] [place] [address] [id number] May, [facility] [id number] [place] [address] [phone] May, Chronic pain G89.29 ; Tobacco abuse Z72.0 ; High risk medication use Z79.899 ; Dyslipidemia E78.5 ; Hepatitis C B19.20 ; Hypertension I10 ; Environmental allergies Z91.09 ; Anxiety F41.9 ; 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 and GERD (gastroesophageal reflux disease) K21.[address] [id number] Apr, Chronic pain G89.29 [place] [address] [address] Mar, Costochondral separation, initial encounter S23.29XA and Injury of toe on left foot, initial encounter S99.922A [place] [id number] [place] [address] [id number] Mar, Chronic pain G89.29 [place] [address] [address] Feb, Poison elda L23.[address] [id number] Feb, Chronic pain G89.29 [place] [address] [address] Feb, Bronchitis J40 [place] [id number] [place] [address] [id number] Feb, [address] [id number] Feb, Chronic pain G89.29 [place] [id number] [place] [address] [id number] January, Vaginal discharge N89.8 ; Increased urinary frequency R35.0 ; Acute cystitis with hematuria N30.01 ; Other specified bacterial agents as the cause of diseases classified elsewhere B96.89 and Acute vaginitis N76.0 [id number] [place] [address] [id number] January, Chronic pain G89.29 and Candidiasis B37.9 [facility] [id number] [place] [address] January, [facility] [id number] [place] [address] Dec, Acute frontal sinusitis, recurrence not specified J01.10 and Cough R05 [place] [id number] [place] [address] [id number] Dec, [place] [id number] [place] [address] [id number] Nov, [facility] [address] [place] [id number] [place] [address] Nov, Bronchitis J40 [place] [address] 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 and Flu-like symptoms R68.89 [facility] [place] Amezquita [place] [id number] [place] [address] Aug, Chronic pain G89.29 ; Open bite of other finger without damage to nail, initial encounter S61.258A and Bitten by dog, initial encounter W54.0XXA [address] [address] Jul, Menopause Z78.0 ; Ankle swelling, unspecified laterality M25.473 ; Chronic pain G89.29 and Tobacco abuse Z72.0 [facility] [address] [address] Jun, [address] [address] Jun, Chronic pain G89.29 [facility] [address] [place] [address] 25 May, 2017 Dysuria R30.0 ; Dehydration E86.0 and Hypertension I10 [address] [address] 19 May, 2017 Menopause Z78.0 ; Depression F32.9 ; Chronic pain G89.29 ; Environmental allergies Z91.09 ; 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 and Encounter for immunization Z23 [address] [address] 18 May, 2017 Chronic pain G89.[address] [address] Apr, Chronic pain G89.[address] [address] Apr, Routine gynecological examination Z01.[address] [address] Mar, Chronic pain G89.[address] [address] Feb, [address] [address] Feb, Chronic pain G89.29 [place] [id number] [place] [address] Feb, [place] [id number] [place] [address] January, Chronic pain G89.29 [place] [id number] [place] [address] January, Routine gynecological examination Z01.419 and Breast cancer screening Z12.39 [place] [id number] [place] [address] January, Chronic pain G89.29 [place] [id number] [place] [address] Dec, Postmenopausal HRT (hormone replacement therapy) Z79.890 [place] [address] [address] Dec, [place] [id number] [place] [address] Nov, Chronic pain G89.29 [place] [id number] [place] [address] Nov, Chronic headaches R51 ; GERD (gastroesophageal reflux disease) K21.9 ; Hypertension I10 ; 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 ; Hepatitis C B19.20 ; Chronic pain G89.29 ; Pain of right thumb M79.644 ; Insomnia G47.00 ; Depression F32.9 ; Environmental allergies Z91.09 and Closed fracture of tuft of distal phalanx of finger, with routine healing, subsequent encounter S62.639D [place] [id number] [place] [phone] 15 Nov, 2016 [place] [id number] [place] [phone] 10 Nov, 2016 [place] [id number] [place] [address] Nov, [facility] [address] [place] [phone] Nov, Hypertension I10 [facility] [id number] [place] [phone] Nov, [facility] [id number] [place] [phone] Nov, [facility] [id number] [place] [address] Oct, Anxiety F41.9 [facility] [id number] [place] [address] Oct, [facility] [id number] [place] [address] Oct, Acute upper respiratory infection, unspecified J06.9 and Other viral agents as the cause of diseases classified elsewhere B97.89 [facility] [id number] [place] [address] Oct, [facility] [id number] [place] [phone] Oct, Right acute serous otitis media, recurrence not specified H65.01 and Pharyngitis, unspecified etiology J02.9 [place] [id number] [place] [address] Sep, [facility] [id number] [place] [address] Aug, Environmental allergies Z91.09 [facility] [id number] [place] [phone] Aug, [facility] [id number] [place] [address] Jul, Atypical nevi D22.9 [facility] [id number] [place] [phone] Jul, [facility] [address] [address] Jul, [facility] [id number] [place] [phone] 07 Jul, 2016 [facility] [address] [address] Jun, [facility] [id number] [place] [address] May, [facility] [id number] [place] [phone] May, [facility] [id number] [place] [address] May, [facility] [id number] [place] [address] Apr, [facility] [id number] [place] [address] Apr, Chronic headaches R51 ; GERD (gastroesophageal reflux disease) K21.9 ; Hypertension I10 ; 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 ; Anxiety F41.9 ; COPD with acute exacerbation J44.1 ; Environmental allergies Z91.09 ; Depression F32.9 and Chronic pain G89.29 [facility] [address] [place] [address] Feb, Chronic headaches R51 and Chronic pain G89.29 [facility] [address] [place] [address] January, Chronic pain G89.29 and Anxiety F41.9 [facility] [id number] [place] [address] January, Depression F32.9 and Hypertension I10 [facility] [address] [address] January, Chronic pain G89.29 [facility] [id number] [place] [address] Dec, [place] [address] [address] Dec, [place] [id number] [place] [address] Dec, Chronic headaches R51 ; Chronic pain G89.29 ; Environmental allergies Z91.09 ; GERD (gastroesophageal reflux disease) K21.9 ; Insomnia G47.00 ; Hypertension I10 and COPD with acute exacerbation J44.1 [place] [id number] [place] [address] Dec, [place] [id number] [place] [phone] 06 Dec, 2015 Chest pain R07.9 ; GERD (gastroesophageal reflux disease) K21.9 and Nausea R11.0 [place] [id number] [place] [phone] Nov, [place] [id number] [place] [address] Oct, COPD with acute exacerbation J44.1 ; Chronic headaches R51 ; GERD (gastroesophageal reflux disease) K21.9 ; Insomnia G47.00 ; Hypertension I10 ; Depression F32.9 and Anxiety F41.9 [place] [id number] [place] [address] Oct, [place] [id number] [place] [address] Oct, [place] [id number] [place] [phone] Oct, [place] [id number] [place] [address] Oct, [place] [address] [place] [address] 15 Oct, 2015 Flu-like symptoms R68.89 and COPD with acute exacerbation J44.1 [place] [address] [place] [address] 12 Oct, 2015 [place] [address] [address] 11 Oct, 2015 Left shoulder pain M25.512 ; Chronic headaches R51 ; Environmental allergies Z91.09 ; GERD (gastroesophageal reflux disease) K21.9 ; Insomnia G47.00 ; Hypertension I10 ; Depression F32.9 and 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 [address] Sep, [address] [address] Sep, COPD (chronic obstructive pulmonary disease) J44.[address] [address] Sep, Bronchitis J40 [place] [id number] [place] [address] Aug, Cervicalgia 723.1 ; Chronic hepatitis C without mention of hepatic coma 070.54 ; Essential hypertension 401.9 ; Chronic headaches R51 ; Environmental allergies Z91.09 ; GERD (gastroesophageal reflux disease) K21.9 ; Insomnia G47.00 ; Depression F32.9 and COPD (chronic obstructive pulmonary disease) J44.9 [place] [id number] [place] [address] Jul, Essential hypertension 401.9 ; Hypertension I10 ; Depression F32.9 ; Anxiety F41.9 ; Chronic headaches R51 and Cervicalgia M54.2 [place] [id number] [place] [address] Jul, Essential hypertension 401.9 and Anxiety F41.[address] [address] Jul, [place] [address] [id number] [place] [address] Jul, [address] [address] Jul, Insomnia G47.00 ; GERD (gastroesophageal reflux disease) K21.9 ; Essential hypertension 401.9 ; Bipolar I disorder, most recent episode (or current) depressed, moderate 296.52 ; Hepatitis C B19.20 ; Depression F32.9 ; Hypertension I10 ; 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 ; Chronic headaches R51 and Chronic pain G89.[address] [address] Jun, [address] [address] Jun, Chronic headaches R51 ; Environmental allergies Z91.09 ; GERD (gastroesophageal reflux disease) K21.9 ; Insomnia G47.00 ; Hepatitis C B19.20 ; Hypertension I10 ; Depression F32.9 ; 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 and Chronic pain G89.[address] [address] Jun, [place] [id number] [place] [address] Jun, Vision changes H53.[address] [address] Apr, [place] [id number] [place] [address] Apr, Bipolar I disorder, most recent episode (or current) depressed, moderate 296.52 ; Other chronic pain 338.29 ; Chronic hepatitis C without mention of hepatic coma 070.54 ; Essential hypertension 401.9 ; Environmental allergies V15.09 and GERD (gastroesophageal reflux disease) 530.[address] [address] Mar, [facility] [address], [place] [address] Mar, [facility] [address], [place] [address] Mar, [facility] [address], [place] [address] Mar, [facility] [id number] [place] [address] Mar, [facility] [address], [place] [address] Feb, Routine gynecological examination V72.31 ; Breast cancer screening V76.10 and Tobacco abuse 305.1 [facility] [address], [place] [address] Feb, [facility] [address], [place] [address] January, [facility] [address], [place] [address] January, [facility] [address], [place] [address] January, [facility] [address], [place] [address] January, [facility] [address], [place] [address] January, Mood disorder 296.90 and Anxiety 300.00 [facility] [address], [place] [address] January, [facility] [address], [place] [address] Dec, Headache 784.0 ; Other chronic pain 338.29 and Cervicalgia 723.1 [facility] [address], [place] [address] Dec, [facility] [place] [facility] [address] [id number] [place] [address] 13 Dec, 2014 [facility] [place] [facility] [address] [id number] [place] [address] 18 Nov, 2014 [facility] [place] [facility] [address] [id number] [place] [address] 18 Nov, 2014 [facility] [place] [facility] [address] [id number] [place] [address] Oct, 2014 [facility] [place] [facility] [address] [id number] [place] [address] Oct, 2014 [facility] [place] [facility] [address] [id number] [place] [address] Oct, 2014 [facility] [place] [facility] [address] [facility] [id number] [place] [address] Oct, 2014 [facility] [place] [facility] [address] [id number] [place] [address] Oct, 2014 [facility] [place] [facility] [address] [id number] [place] [address] Oct, 2014 [facility] [place] [facility] [address] [facility] [id number] [place] [address] Oct, 2014 [facility] [place] [facility] [address] [facility] [id number] [place] [address] Oct, 2014 [facility] [place] [facility] [address] [id number] [place] [address] Oct, 2014 [facility] [place] [facility] [address] [id number] [place] [address] Oct, 2014 [facility] [place] [facility] [address] [id number] [place] [address] Oct, 2014 [facility] [place] [facility] [address] [facility] [id number] [place] [address] Oct, 2014 [facility] [place] [facility] [address] [id number] [place] [address] Sep, [facility] [address] [id number] [place] [address] Sep, [facility] [place] [facility] [address] [id number] [place] [address] Sep, [facility] [address] [id number] [place] [address] Sep, [facility] [address] [id number] [place] [address] 15 Sep, 2014 [facility] [address] [id number] [place] [address] Sep, [facility] [address] [id number] [place] [address] Sep, [facility] [address] [id number] [place] [address] Sep, [facility] [address] [id number] [place] [address] Sep, [facility] [address] [id number] [place] [address] Sep, [facility] [address] [id number] [place] [address] Sep, [facility] [address] [id number] [place] [address] Sep, [facility] [address] [id number] [place] [address] Sep, [facility] [place] [facility] [address] [id number] [place] [address] Sep, [facility] [place] [facility] [address] [id number] [place] [address] Aug, [facility] [place] [facility] [address] [id number] [place] [address] Aug, [facility] [place] [facility] [address] [id number] [place] [address] Aug, [facility] [place] [facility] [address] [id number] [place] [address] Aug, [facility] [place] [facility] [address] [id number] [place] [address] Aug, [facility] [place] [facility] [address] [id number] [place] [address] Aug, [facility] [place] [facility] [address] [id number] [place] [address] Aug, [facility] [place] [facility] [address] [id number] [place] [address] Aug, [facility] [place] [facility] [address] [id number] [place] [address] Aug, [facility] [place] [facility] [address] [id number] [place] [address] Aug, [facility] [place] [facility] [address] [id number] [place] [address] Aug, [facility] [place] [facility] [address] [id number] [place] [address] Aug, [facility] [place] [facility] [address] [id number] [place] [address] Aug, [facility] [place] [facility] [address] [id number] [place] [address] Jul, [facility] [place] [facility] [address] [id number] [place] [address] Jul, [facility] [place] [facility] [address] [id number] [place] [address] Feb, [facility] [place] [facility] [address] [id number] [place] [address] Feb, [facility] [place] [facility] [address] [id number], [place] [address] January, [facility] [address] [id number] [place] [address] January, [facility] [place] [facility] [address] [id number] [place] [address] January, [facility] [place] [facility] [address] [id number] [place] [address] January, [facility] [place] [facility] [address] [id number] [place] [address] Nov, [facility] [place] [facility] [address] [id number] [place] [address] Nov, [facility] [place] [facility] [address] [id number] [place] [address] Nov, [facility] [place] [facility] [address] [id number] [place] [address] Nov, [facility] [place] [facility] [address] [id number] [place] [address] Oct, [facility] [place] [facility] [address] [id number] [place] [address] Oct, [facility] [place] [facility] [address] [facility] [id number] [place] [address] Sep, [facility] [place] [facility] [address] [id number] [place] [address] Sep, [facility] [place] [facility] [address] [id number] [place] [address] Sep, [facility] [place] [facility] [address] [id number] [place] [address] Sep, [facility] [place] [facility] [address] [id number] [place] [address] Aug, [facility] [place] [facility] [address] [id number] [place] [address] Aug, [facility] [place] [facility] [address] [id number] [place] [address] Aug, [facility] [place] [facility] [address] [id number] [place] [address] Aug, [facility] [place] [facility] [address] [id number] [place] [address] Aug, [facility] [place] [facility] [address] [id number] [place] [address] Aug, [facility] [place] [facility] [address] [id number] [place] [address] Aug, [facility] [place] [facility] [address] [id number] [place] [address] Jul, [facility] [place] [facility] [address] [id number] [place] [address] Jul, [facility] [place] [facility] [address] [id number] [place] [address] Jul, [facility] [place] [facility] [address] [id number] [place] [address] Jul, [facility] [place] [facility] [address] [id number] [place] [address] Jul, [facility] [place] [facility] [address] [id number] [place] [address] Jul, [facility] [place] [facility] [address] [id number] [place] [address] Jul, [facility] [place] [facility] [address] [id number] [place] [address] Jun, [facility] [place] [facility] [address] [id number] [place] [address] Jun, [facility] [place] [facility] [address] [id number] [place] [address] Jun, [facility] [facility] [address] [id number] [address] Jun, [facility] [id number] [address] Jul, [facility] [address] [place] [address] Jul, [facility] [address] [place] [address] Jul, [facility] [address] [place] [address] Jul, [facility] [address] [place] [address] Jun, [facility] [id number] [place] [address] Jun, [facility] [address], [place] [address] Jun, [facility] [address] [place] [address] Jun, [facility] [address], [place] [address] Jun, [facility] [address] [place] [address] Mar, [facility] [address], [place] [address] January, IMMUNIZATIONS No Known Immunizations SOCIAL HISTORY Never Assessed REASON FOR VISIT Medication PLAN OF CARE VITAL SIGNS MEDICATIONS Medication Instructions Dosage Frequency Start Date End Date Duration Status Oxycodone-Acetaminophen 5-325 MG Orally 3 times a day 1 tablet as needed 8h 30 Jun, 2018 0 days Active RESULTS No Results PROCEDURES No [...] History child Hospitalization History low blood pressure--via [facility] 12/2017
--- OUTSIDE RECORDS SUMMARY | 2019-04-09 01:29 | XMS REPORT ---
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 Active 30566886 Problem Chronic pain G89.29 Active 94998489 Problem Environmental allergies Z91.09 Active 665692872 Problem Bipolar I disorder F31.9 Active 837073359 Problem Obsessive-compulsive disorder, unspecified type F42.9 Active 642739444 Problem Cervicalgia M54.2 Active 037651535 Problem Hypertension I10 Active 40405104 Problem Tobacco abuse Z72.0 Active 10721698 Problem Dyslipidemia E78.5 Active 174685297 ALLERGIES No Information ENCOUNTERS Encounter Location Date Diagnosis [facility] [place] [address] [id number] [place] [id number] Aug, [facility] [place] [address] [id number] [place] [id number] Aug, [facility] [place] [address] [id number] [place] [id number] Jul, Chronic pain G89.29 [facility] [place] [address] [id number] [place] [id number] Jul, [facility] [place] [address] [id number] [place] [id number] Jul, Bipolar I disorder F31.9 and Obsessive-compulsive disorder, unspecified type F42.9 [facility] [place] [address] [id number] [place] [id number] 15 Jul, 2018 GERD (gastroesophageal reflux disease) K21.9 ; Hypertension I10 ; 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 ; Chronic pain G89.29 ; Dyslipidemia E78.5 ; Environmental allergies Z91.09 and Encounter for immunization Z23 [address] [place] [address] [id number] Jun, Chronic pain G89.29 [address] [place] [address] [id number] Jun, [address] [id number] [id number] Jun, [place] [id number] [place] [address] [id number] Jun, Dyslipidemia E78.5 [place] [id number] [place] [address] [id number] Jun, Chronic pain G89.29 [place] [id number] [place] [address] [id number] May, [place] [id number] [place] [address] [id number] May, Chronic pain G89.29 ; Tobacco abuse Z72.0 ; High risk medication use Z79.899 ; Dyslipidemia E78.5 ; Hepatitis C B19.20 ; Hypertension I10 ; Environmental allergies Z91.09 ; Anxiety F41.9 ; 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 and GERD (gastroesophageal reflux disease) K21.[address] [place] [address] [id number] Apr, Chronic pain G89.29 [place] [address] [address] Mar, Costochondral separation, initial encounter S23.29XA and Injury of toe on left foot, initial encounter S99.922A [place] [id number] [place] [address] [id number] Mar, Chronic pain G89.29 [facility] [id number] [place] [address] Feb, Poison elda L23.7 [place] [id number] [place] [address] [id number] Feb, Chronic pain G89.29 [facility] [id number] [place] [address] Feb, Bronchitis J40 [place] [id number] [place] [address] [id number] Feb, [place] [id number] [place] [address] [id number] Feb, Chronic pain G89.[address] [id number] January, Vaginal discharge N89.8 ; Increased urinary frequency R35.0 ; Acute cystitis with hematuria N30.01 ; Other specified bacterial agents as the cause of diseases classified elsewhere B96.89 and Acute vaginitis N76.0 [place] [id number] [place] [address] [id number] January, Chronic pain G89.29 and Candidiasis B37.9 [facility] [address] [place] [id number] [place] [address] January, [facility] [id number] [place] [address] Dec, Acute frontal sinusitis, recurrence not specified J01.10 and Cough R05 [place] [id number] [place] [address] [id number] Dec, [place] [id number] [place] [address] [id number] Nov, [facility] [id number] [place] [address] Nov, Bronchitis J40 [place] [address] [facility] [id number] [id number] Nov, [facility] [id number] [place] [address] Oct, COPD with acute exacerbation J44.1 [place] [id number] [place] [address] [id number] Oct, Chronic pain G89.29 [place] [id number] [id number] Oct, [facility] [address] [id number] [id number] Sep, Chronic pain G89.29 ; Depression F32.9 ; Anxiety F41.9 ; 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 and Flu-like symptoms R68.89 [facility] [id number] [place] [address] Aug, Chronic pain G89.29 ; Open bite of other finger without damage to nail, initial encounter S61.258A and Bitten by dog, initial encounter W54.0XXA [address] [address] Jul, Menopause Z78.0 ; Ankle swelling, unspecified laterality M25.473 ; Chronic pain G89.29 and Tobacco abuse Z72.0 [facility] [address] [address] Jun, [place] [address] [address] Jun, Chronic pain G89.29 [facility] [id number] [place] [address] May, Dysuria R30.0 ; Dehydration E86.0 and Hypertension I10 [address] [address] May, Menopause Z78.0 ; Depression F32.9 ; Chronic pain G89.29 ; Environmental allergies Z91.09 ; 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 and Encounter for immunization Z23 [address] [address] May, Chronic pain G89.29 [place] [address] [address] Apr, Chronic pain G89.[id number] [place] [address] Apr, Routine gynecological examination Z01.419 [place] [id number] [place] [address] Mar, Chronic pain G89.29 [place] [id number] [place] [address] Feb, [place] [id number] [place] [address] Feb, Chronic pain G89.29 [place] [id number] [place] [address] Feb, [place] [id number] [place] [address] January, Chronic pain G89.29 [place] [id number] [place] [address] January, Routine gynecological examination Z01.419 and Breast cancer screening Z12.39 [place] [id number] [place] [address] January, Chronic pain G89.29 [place] [address] [place] [address] Dec, Postmenopausal HRT (hormone replacement therapy) Z79.890 [place] [id number] [place] [address] Dec, [place] [id number] [place] [address] Nov, Chronic pain G89.29 [place] [id number] [place] [address] Nov, Chronic headaches R51 ; GERD (gastroesophageal reflux disease) K21.9 ; Hypertension I10 ; 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 ; Hepatitis C B19.20 ; Chronic pain G89.29 ; Pain of right thumb M79.644 ; Insomnia G47.00 ; Depression F32.9 ; Environmental allergies Z91.09 and Closed fracture of tuft of distal phalanx of finger, with routine healing, subsequent encounter S62.639D [facility] [id number] [place] [address] 15 Nov, 2016 [facility] [id number] [place] [address] Nov, [facility] [id number] [place] [address] Nov, [facility] [id number] [place] [address] Nov, Hypertension I10 [place] [id number] [place] [address] Nov, [place] [id number] [place] [address] Nov, [place] [id number] [place] [address] Oct, Anxiety F41.9 [place] [id number] [place] [address] Oct, [place] [id number] [place] [address] Oct, Acute upper respiratory infection, unspecified J06.9 and Other viral agents as the cause of diseases classified elsewhere B97.89 [place] [address] [place] [address] Oct, [place] [address] [place] [address] Oct, Right acute serous otitis media, recurrence not specified H65.01 and Pharyngitis, unspecified etiology J02.9 [place] [id number] [place] [address] Sep, [place] [address] [address] Aug, Environmental allergies Z91.09 [facility] [id number] [place] [address] Aug, [facility] [address] [address] Jul, Atypical nevi D22.9 [facility] [id number] [place] [address] 15 Jul, 2016 [facility] [id number] [place] [address] Jul, [facility] [id number] [place] [address] Jul, [facility] [id number] [place] [address] Jun, [facility] [id number] [place] [address] May, [facility] [address] [place] [address] May, [facility] [id number] [place] [address] May, [facility] [address] [address] Apr, [facility] [address] [address] Apr, Chronic headaches R51 ; GERD (gastroesophageal reflux disease) K21.9 ; Hypertension I10 ; 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 ; Anxiety F41.9 ; COPD with acute exacerbation J44.1 ; Environmental allergies Z91.09 ; Depression F32.9 and Chronic pain G89.29 [facility] [address] [address] Feb, Chronic headaches R51 and Chronic pain G89.29 [facility] [id number] [place] [address] January, Chronic pain G89.29 and Anxiety F41.9 [place] [address] [place] [address] January, Depression F32.9 and Hypertension I10 [place] [address] [address] January, Chronic pain G89.29 [place] [address] [place] [address] Dec, [place] [address] [address] Dec, [place] [address] [place] [address] Dec, Chronic headaches R51 ; Chronic pain G89.29 ; Environmental allergies Z91.09 ; GERD (gastroesophageal reflux disease) K21.9 ; Insomnia G47.00 ; Hypertension I10 and COPD with acute exacerbation J44.1 [place] [address] [address] Dec, [place] [address] [place] [address] Dec, Chest pain R07.9 ; GERD (gastroesophageal reflux disease) K21.9 and Nausea R11.0 [place] [address] [place] [address] Nov, [place] [address] [place] [address] Oct, COPD with acute exacerbation J44.1 ; Chronic headaches R51 ; GERD (gastroesophageal reflux disease) K21.9 ; Insomnia G47.00 ; Hypertension I10 ; Depression F32.9 and Anxiety F41.9 [place] [id number] [place] [address] Oct, [place] [address] [place] [address] Oct, [place] [id number] [place] [address] Oct, [place] [address] [place] [address] Oct, [address] [address] Oct, Flu-like symptoms R68.89 and COPD with acute exacerbation J44.[address] [address] Oct, [place] [id number] [place] [address] Oct, Left shoulder pain M25.512 ; Chronic headaches R51 ; Environmental allergies Z91.09 ; GERD (gastroesophageal reflux disease) K21.9 ; Insomnia G47.00 ; Hypertension I10 ; Depression F32.9 and 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 [place] [id number] [place] [address] Sep, [place] [id number] [place] [address] Sep, COPD (chronic obstructive pulmonary disease) J44.9 [place] [id number] [place] [address] Sep, Bronchitis J40 [place] [id number] [place] [address] Aug, Cervicalgia 723.1 ; Chronic hepatitis C without mention of hepatic coma 070.54 ; Essential hypertension 401.9 ; Chronic headaches R51 ; Environmental allergies Z91.09 ; GERD (gastroesophageal reflux disease) K21.9 ; Insomnia G47.00 ; Depression F32.9 and COPD (chronic obstructive pulmonary disease) J44.9 [place] [id number] [place] [address] Jul, Essential hypertension 401.9 ; Hypertension I10 ; Depression F32.9 ; Anxiety F41.9 ; Chronic headaches R51 and Cervicalgia M54.2 [place] [address] [place] [address] Jul, Essential hypertension 401.9 and Anxiety F41.[address] [address] Jul, [address] [address] Jul, [address] [address] Jul, Insomnia G47.00 ; GERD (gastroesophageal reflux disease) K21.9 ; Essential hypertension 401.9 ; Bipolar I disorder, most recent episode (or current) depressed, moderate 296.52 ; Hepatitis C B19.20 ; Depression F32.9 ; Hypertension I10 ; 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 ; Chronic headaches R51 and Chronic pain G89.29 [place] [id number] [place] [address] Jun, [place] [id number] [place] [address] Jun, Chronic headaches R51 ; Environmental allergies Z91.09 ; GERD (gastroesophageal reflux disease) K21.9 ; Insomnia G47.00 ; Hepatitis C B19.20 ; Hypertension I10 ; Depression F32.9 ; 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 and Chronic pain G89.[address] [address] Jun, [address] [address] Jun, Vision changes H53.[address] [address] Apr, [facility] [address] [address] Apr, Bipolar I disorder, most recent episode (or current) depressed, moderate 296.52 ; Other chronic pain 338.29 ; Chronic hepatitis C without mention of hepatic coma 070.54 ; Essential hypertension 401.9 ; Environmental allergies V15.09 and GERD (gastroesophageal reflux disease) 530.81 [facility] [id number] [place] [address] Mar, [facility] [address] [address] Mar, [facility] [id number] [place] [address] Mar, [facility] [id number] [place] [address] Mar, [facility] [id number] [place] [address] Mar, [facility] [address] [address] Feb, Routine gynecological examination V72.31 ; Breast cancer screening V76.10 and Tobacco abuse 305.1 [facility] [address] [address] Feb, [facility] [address] [address] January, [facility] [address] [address] January, [facility] [id number] [place] [address] January, [facility] [address] [address] January, [facility] [address] [address] January, Mood disorder 296.90 and Anxiety 300.00 [facility] [address] [address] January, [facility] [id number] [place] [address] Dec, Headache 784.0 ; Other chronic pain 338.29 and Cervicalgia 723.1 [facility] [id number] [place] [address] Dec, [facility] [id number] [place] [address] Dec, [facility] [id number] [place] [address] Nov, [facility] [id number] [place] [address] Nov, [facility] [id number] [place] [address] Oct, [facility] [address] [address] Oct, [facility] [address] [place] [address] Oct, [facility] [address] [address] Oct, [facility] [address] [address] Oct, [facility] [address] [address] Oct, [facility] [address] [place] [address] Oct, [facility] [address] [address] Oct, [facility] [id number] [place] [address] 18 Oct, 2014 [facility] [place] [facility] [address] [id number] [place] [address] 18 Oct, 2014 [facility] [place] [facility] [address] [id number] [place] [address] 17 Oct, 2014 [facility] [place] [facility] [address] [id number] [place] [address] 17 Oct, 2014 [facility] [place] [facility] [address] [id number] [place] [address] 20 Sep, 2014 [facility] [place] [facility] [address] [id number] [place] [address] Sep, [facility] [place] [facility] [address] [id number] [place] [address] Sep, [facility] [place] [facility] [address] [id number] [place] [address] Sep, [facility] [place] [facility] [address] [id number] [place] [address] Sep, [facility] [place] [facility] [address] [id number] [place] [address] Sep, [facility] [place] [facility] [address] [id number] [place] [address] Sep, [facility] [place] [facility] [address] [id number] [place] [address] Sep, [facility] [place] [facility] [address] [id number] [place] [address] Sep, [facility] [place] [facility] [address] [id number] [place] [address] Sep, [facility] [place] [facility] [address] [id number] [place] [address] Sep, [facility] [place] [facility] [address] [id number] [place] [address] Sep, [facility] [place] [facility] [address] [id number] [place] [address] Sep, [facility] [place] [facility] [address] [id number] [place] [address] Sep, [facility] [place] [facility] [address] [id number] [place] [address] Aug, [facility] [place] [facility] [address] [id number] [place] [address] Aug, [facility] [place] [facility] [address] [id number] [place] [address] Aug, [facility] [place] [facility] [address] [id number] [place] [address] Aug, [facility] [place] [facility] [address] [id number] [place] [address] Aug, [facility] [place] [facility] [address] [id number] [place] [address] Aug, [facility] [place] [facility] [address] [id number] [place] [address] Aug, [facility] [place] [facility] [address] [id number] [place] [address] Aug, [facility] [place] [facility] [address] [id number] [place] [address] Aug, [facility] [place] [facility] [address] [id number] [place] [address] Aug, [facility] [place] [facility] [address] [id number] [place] [address] Aug, [facility] [place] [facility] [address] [id number] [place] [address] Aug, [facility] [place] [facility] [address] [id number] [place] [address] Aug, [facility] [place] [facility] [address] [id number] [place] [address] Jul, [facility] [place] [facility] [address] [id number] [place] [address] Jul, [facility] [place] [facility] [address] [id number] [place] [address] Feb, [facility] [place] [facility] [address] [id number] [place] [address] Feb, [facility] [place] [facility] [address] [id number] [place] [address] January, [facility] [place] [facility] [address] [id number] [place] [address] January, [facility] [place] [facility] [address] [id number] [place] [address] January, [facility] [place] [facility] [address] [id number] [place] [address] January, [facility] [place] [facility] [address] [id number] [place] [address] Nov, [facility] [place] [facility] [address] [id number] [place] [address] Nov, [facility] [place] [facility] [address] [id number] [place] [address] Nov, [facility] [place] [facility] [address] [id number] [place] [address] Nov, [facility] [place] [facility] [address] [id number] [place] [address] Oct, [facility] [place] [facility] [address] [id number] [place] [address] Oct, [facility] [place] [facility] [address] [id number] [place] [address] Sep, [facility] [place] [facility] [address] [id number] [place] [address] Sep, [facility] [place] [facility] [address] [id number] [place] [address] Sep, [facility] [address] [id number] [place] [address] Sep, [facility] [place] [facility] [address] [id number] [place] [address] Aug, [facility] [place] [facility] [address] [id number] [place] [address] Aug, [facility] [place] [facility] [address] [id number] [place] [address] Aug, [facility] [place] [facility] [address] [id number] [place] [address] Aug, [facility] [address] [id number] [place] [address] Aug, [facility] [place] [facility] [address] [id number] [place] [address] Aug, [facility] [place] [facility] [address] [id number] [place] [address] Aug, [facility] [place] [facility] [address] [id number] [place] [address] Jul, [facility] [place] [facility] [address] [id number] [place] [address] Jul, [facility] [place] [facility] [address] [id number] [place] [address] Jul, [facility] [place] [facility] [address] [id number] [place] [address] Jul, [facility] [place] [facility] [address] [id number] [place] [address] Jul, [facility] [place] [facility] [address] [id number] [place] [address] Jul, [facility] [place] [facility] [address] [id number] [place] [address] Jul, [facility] [address] [facility] [id number] [place] [address] Jun, [facility] [address] [facility] [id number] [place] [address] Jun, [facility] [address] [facility] [id number] [place] [address] Jun, [facility] [address] [facility] [id number] [place] [address] Jun, [facility] [address] [facility] [id number] [place] [address] Jul, [facility] [address] [facility] [id number] [place] [address] Jul, [facility] [address] [facility] [id number] [place] [address] Jul, [facility] [address] [facility] [id number] [place] [address] Jul, [facility] [address] [facility] [id number] [place] [address] Jun, [facility] [address] [facility] [id number] [place] [address] Jun, [facility] [address] [facility] [id number] [place] [address] Jun, [facility] [address] [facility] [id number] [place] [address] Jun, [facility] [address] [facility] [id number] [place] [address] Jun, [facility] [address] [facility] [id number] [place] [address] Mar, [facility] [address] [facility] [id number] [place] [address] January, IMMUNIZATIONS No Known Immunizations SOCIAL HISTORY Never Assessed REASON FOR VISIT Medication question PLAN OF CARE VITAL SIGNS MEDICATIONS Unknown [...] child Hospitalization History low blood pressure--via [facility] 12/2017
[2019-04-09] MEDS ORDERED: RT-ALBUTEROL/IPRATROPIUM 3 ML (DUONEB) VIAL INH ONE (01:30)
[2019-04-09] MEDS ORDERED: ASPIRIN 81 MG CHEW (CHILDREN'S ASA) PO ONE (01:30)
--- OUTSIDE RECORDS SUMMARY | 2019-04-09 01:30 | XMS REPORT ---
Author Author SHABANA DELGADO Organization [facility] Address [address] [place] [address] Care Team Providers Care Manager Social Name Role Phone CHRISTYCLARISSAAASHISH SHABANA Unavailable PROBLEMS Type Condition ICD9-CM Code PNQ88-IR Code Onset Dates Condition Status SNOMED Code Problem Cervicalgia M54.2 Active 156083129 Problem COPD with acute exacerbation J44.1 Active 489483009 Problem Anxiety F41.9 Active 20100310 Problem Tobacco abuse Z72.0 Active 87587652 Problem Dyslipidemia E78.5 Active 684328727 Problem Chest pain R07.9 Active 47305433 Problem Nausea R11.0 Active 000613244 Problem Menopause Z78.0 Active 091418119 Problem Postmenopausal HRT (hormone replacement therapy) Z79.890 Active 53688965 Problem Chronic headaches R51 Active 082465933 Problem Hypertension I10 Active 26928602 Problem 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 and GERD (gastroesophageal reflux disease) K21.9 [place] [id number] [place] [id number] Apr, Chronic pain G89.29 [place] [address] [address] Mar, Costochondral separation, initial encounter S23.29XA and Injury of toe on left foot, initial encounter S99.922A [address] [id number] Mar, Chronic pain G89.29 [place] [address] [address] Feb, Poison elda L23.[address] [id number] Feb, Chronic pain G89.29 [place] [address] [address] Feb, Bronchitis J40 [place] [id number] [place] [id number] Feb, [address] [id number] Feb, Chronic pain G89.[address] [id number] January, Vaginal discharge N89.8 ; Increased urinary frequency R35.0 ; Acute cystitis with hematuria N30.01 ; Other specified bacterial agents as the cause of diseases classified elsewhere B96.89 and Acute vaginitis N76.[address] [id number] January, Chronic pain G89.29 and Candidiasis B37.9 [facility] [address] [place] [address] January, [facility] [address] [id number] [place] [address] Dec, Acute frontal sinusitis, recurrence not specified J01.10 and Cough R05 [facility] [id number] [place] [id number] Dec, [facility] [id number] [place] [id number] Nov, [facility] [address] [address] Nov, Bronchitis J40 [address] [id number] [id number] Nov, 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 and Flu-like symptoms R68.89 [facility] [place] [id number] [place] [address] Aug, Chronic pain G89.29 ; Open bite of other finger without damage to nail, initial encounter S61.258A and Bitten by dog, initial encounter W54.0XXA [facility] [address] [place] [address] 13 Jul, 2017 Menopause Z78.0 ; Ankle swelling, unspecified laterality M25.473 ; Chronic pain G89.29 and Tobacco abuse Z72.0 [facility] [id number] [place] [address] Jun, [facility] [address] [address] Jun, Chronic pain G89.29 [facility] [address] [address] May, Dysuria R30.0 ; Dehydration E86.0 and Hypertension I10 [facility] [address] [address] 19 May, 2017 Menopause Z78.0 ; Depression F32.9 ; Chronic pain G89.29 ; Environmental allergies Z91.09 ; 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 and Encounter for immunization Z23 [place] [address] [address] May, Chronic pain G89.29 [facility] [address] [address] Apr, Chronic pain G89.29 [place] [address] [address] Apr, Routine gynecological examination Z01.419 [place] [address] [address] Mar, Chronic pain G89.29 [facility] [address] [address] Feb, [place] [address] [address] Feb, Chronic pain G89.29 [facility] [address] [address] Feb, [place] [address] [address] January, Chronic pain G89.29 [place] [address] [place] [address] January, Routine gynecological examination Z01.419 and Breast cancer screening Z12.39 [place] [address] [place] [address] January, Chronic pain G89.29 [place] [address] [place] [id number] [place] [address] Dec, Postmenopausal HRT (hormone replacement therapy) Z79.890 [place] [address] [place] [id number] [place] [address] Dec, [place] [address] [place] [id number] [place] [address] Nov, Chronic pain G89.29 [place] [address] [place] [id number] [place] [address] Nov, Chronic headaches R51 ; GERD (gastroesophageal reflux disease) K21.9 ; Hypertension I10 ; 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 ; Hepatitis C B19.20 ; Chronic pain G89.29 ; Pain of right thumb M79.644 ; Insomnia G47.00 ; Depression F32.9 ; Environmental allergies Z91.09 and Closed fracture of tuft of distal phalanx of finger, with routine healing, subsequent encounter S62.639D [place] [address] [place] [id number] [place] [address] Nov, [place] [address] [place] [id number] [place] [address] Nov, [place] [address] [place] [id number] [place] [address] Nov, [place] [address] [place] [id number] [place] [address] Nov, Hypertension I10 [place] [id number] [place] [address] Nov, [facility] [address] [address] Nov, [facility] [address] [place] [id number] [place] [address] Oct, Anxiety F41.9 [facility] [address] [place] [id number] [place] [address] Oct, [facility] [id number] [place] [address] Oct, Acute upper respiratory infection, unspecified J06.9 and Other viral agents as the cause of diseases classified elsewhere B97.89 [facility] [address] [place] [id number] [place] [address] Oct, [facility] [address] [place] [address] [id number] [place] [address] Oct, Right acute serous otitis media, recurrence not specified H65.01 and Pharyngitis, unspecified etiology J02.9 [facility] [address] [place] [address] Sep, [facility] [address] [place] [id number] [place] [address] Aug, Environmental allergies Z91.09 [facility] [id number] [place] [address] Aug, [facility] [address] [place] [address] Jul, Atypical nevi D22.9 [facility] [address] [place] [address] Jul, [facility] [address] [place] [id number] [place] [address] 10 Jul, 2016 [facility] [address] [place] [address] Jul, [facility] [address] [address] Jun, [facility] [address] [place] [id number] [place] [address] May, [facility] [address] [place] [id number] [place] [address] May, [facility] [address] [place] [id number] [place] [address] May, [facility] [address] [place] [id number] [place] [address] Apr, [facility] [address] [place] [id number] [place] [address] Apr, Chronic headaches R51 ; GERD (gastroesophageal reflux disease) K21.9 ; Hypertension I10 ; 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 ; Anxiety F41.9 ; COPD with acute exacerbation J44.1 ; Environmental allergies Z91.09 ; Depression F32.9 and Chronic pain G89.29 [facility] [id number] [place] [address] Feb, Chronic headaches R51 and Chronic pain G89.29 [facility] [address] [place] [id number] [place] [address] January, Chronic pain G89.29 and Anxiety F41.9 [facility] [address] [place] [id number] [place] [address] January, Depression F32.9 and Hypertension I10 [facility] [id number] [place] [address] January, Chronic pain G89.29 [facility] [address] [place] [id number] [place] [address] Dec, [facility] [address] [place] [address] Dec, [facility] [address] [place] [address] Dec, Chronic headaches R51 ; Chronic pain G89.29 ; Environmental allergies Z91.09 ; GERD (gastroesophageal reflux disease) K21.9 ; Insomnia G47.00 ; Hypertension I10 and COPD with acute exacerbation J44.1 [place] [address] [address] 14 Dec, 2015 [place] [address] [address] Dec, Chest pain R07.9 ; GERD (gastroesophageal reflux disease) K21.9 and Nausea R11.[address] [address] Nov, [place] [address] [address] 24 Oct, 2015 COPD with acute exacerbation J44.1 ; Chronic headaches R51 ; GERD (gastroesophageal reflux disease) K21.9 ; Insomnia G47.00 ; Hypertension I10 ; Depression F32.9 and Anxiety F41.9 [place] [address] [address] Oct, [place] [address] [address] Oct, [place] [address] [address] Oct, [place] [address] [address] Oct, [place] [address] [address] 15 Oct, 2015 Flu-like symptoms R68.89 and COPD with acute exacerbation J44.1 [place] [address] [address] 12 Oct, 2015 [place] [address] [address] Oct, Left shoulder pain M25.512 ; Chronic headaches R51 ; Environmental allergies Z91.09 ; GERD (gastroesophageal reflux disease) K21.9 ; Insomnia G47.00 ; Hypertension I10 ; Depression F32.9 and 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 [place] [address] [place] [id number] [place] [address] Sep, [place] [address] [address] Sep, COPD (chronic obstructive pulmonary disease) J44.9 [place] [address] [address] Sep, Bronchitis J40 [address] [address] Aug, Cervicalgia 723.1 ; Chronic hepatitis C without mention of hepatic coma 070.54 ; Essential hypertension 401.9 ; Chronic headaches R51 ; Environmental allergies Z91.09 ; GERD (gastroesophageal reflux disease) K21.9 ; Insomnia G47.00 ; Depression F32.9 and COPD (chronic obstructive pulmonary disease) J44.[address] [address] Jul, Essential hypertension 401.9 ; Hypertension I10 ; Depression F32.9 ; Anxiety F41.9 ; Chronic headaches R51 and Cervicalgia M54.2 [place] [id number] [place] [address] Jul, Essential hypertension 401.9 and Anxiety F41.9 [place] [id number] [place] [address] Jul, [address] [address] Jul, [place] [address] [address] Jul, Insomnia G47.00 ; GERD (gastroesophageal reflux disease) K21.9 ; Essential hypertension 401.9 ; Bipolar I disorder, most recent episode (or current) depressed, moderate 296.52 ; Hepatitis C B19.20 ; Depression F32.9 ; Hypertension I10 ; 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 ; Chronic headaches R51 and Chronic pain G89.29 [facility] [address] [place] [id number] [place] [address] Jun, [facility] [address] [address] Jun, Chronic headaches R51 ; Environmental allergies Z91.09 ; GERD (gastroesophageal reflux disease) K21.9 ; Insomnia G47.00 ; Hepatitis C B19.20 ; Hypertension I10 ; Depression F32.9 ; 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 and Chronic pain G89.29 [place] [address] [place] [id number] [place] [address] Jun, [place] [address] [place] [id number] [place] [address] Jun, Vision changes H53.9 [place] [address] [place] [id number] [place] [address] Apr, [place] [address] [place] [id number] [place] [address] Apr, Bipolar I disorder, most recent episode (or current) depressed, moderate 296.52 ; Other chronic pain 338.29 ; Chronic hepatitis C without mention of hepatic coma 070.54 ; Essential hypertension 401.9 ; Environmental allergies V15.09 and GERD (gastroesophageal reflux disease) 530.81 [place] [address] [place] [id number] [place] [address] Mar, [place] [id number] [place] [address] Mar, [facility] [id number] [place] [address] Mar, [place] [address] [id number] [address] Mar, [facility] [address] [address] Mar, [facility] [address] [address] Feb, Routine gynecological examination V72.31 ; Breast cancer screening V76.10 and Tobacco abuse 305.1 [facility] [address] [address] Feb, [facility] [address] [address] January, [facility] [address] [address] January, [facility] [id number] [address] January, [facility] [address] [address] January, [facility] [address], [place] [address] January, Mood disorder 296.90 and Anxiety 300.00 [facility] [address] [address] January, [facility] [address] [address] Dec, Headache 784.0 ; Other chronic pain 338.29 and Cervicalgia 723.1 [facility] [address] [address] Dec, [facility] [id number] [address] Dec, [facility] [address] [address] Nov, [facility] [address] [place] [id number] [place] [address] Nov, [facility] [place] [facility] [address] [id number] [place] [address] Oct, 2014 [facility] [place] [facility] [address] [id number] [place] [address] Oct, 2014 [facility] [place] [facility] [address] [facility] [id number] [place] [address] Oct, 2014 [facility] [place] [facility] [address] [id number] [place] [address] Oct, [facility] [place] [facility] [address] [facility] [id number] [place] [address] Oct, [facility] [place] [facility] [address] [facility] [id number] [place] [address] Oct, [facility] [place] [facility] [address] [facility] [id number] [place] [address] Oct, [facility] [place] [facility] [address] [facility] [id number] [place] [address] Oct, [facility] [place] [facility] [address] [facility] [id number] [place] [address] Oct, [facility] [place] [facility] [address] [facility] [id number] [address] Oct, [facility] [place] [facility] [address] [facility] [id number] [address] Oct, [facility] [place] [facility] [address] [facility] [id number] [place] [address] Oct, [facility] [place] [facility] [address] [facility] [id number], [place] [address] Sep, [facility] [place] [facility] [address] [facility] [id number] [address] Sep, [facility] [place] [facility] [address] [facility] [id number], [place] [address] Sep, [facility] [place] [facility] [address] [id number] [place] [address] Sep, [facility] [place] [facility] [address] [id number] [place] [address] Sep, [facility] [place] [facility] [address] [id number] [place] [address] Sep, [facility] [place] [facility] [address] [id number] [place] [address] Sep, [facility] [place] [facility] [address] [id number] [place] [address] Sep, [facility] [place] [facility] [address] [id number] [place] [address] Sep, [facility] [place] [facility] [address] [id number] [place] [address] Sep, [facility] [place] [facility] [address] [id number] [place] [address] Sep, [facility] [place] [facility] [address] [id number] [place] [address] Sep, [facility] [place] [facility] [address] [id number] [place] [address] Sep, [facility] [place] [facility] [address] [id number] [address] Sep, [facility] [place] [facility] [address] [id number] [place] [address] Aug, [facility] [place] [facility] [address] [id number] [place] [address] Aug, [facility] [place] [facility] [address] [id number] [place] [address] Aug, [facility] [place] [facility] [address] [id number] [place] [address] Aug, [facility] [place] [facility] [address] [id number] [place] [address] Aug, [facility] [address] [id number] [place] [address] Aug, [facility] [place] [facility] [address] [id number] [place] [address] Aug, [facility] [place] [facility] [address] [id number] [place] [address] Aug, [facility] [place] [facility] [address] [id number] [place] [address] Aug, [facility] [place] [facility] [address] [id number] [place] [address] Aug, [facility] [place] [facility] [address] [id number] [place] [address] Aug, [facility] [place] [facility] [address] [id number] [place] [address] Aug, [facility] [place] [facility] [address] [id number] [place] [address] Aug, [facility] [place] [facility] [address] [id number] [place] [address] Jul, [facility] [place] [facility] [address] [id number] [place] [address] Jul, [facility] [place] [facility] [address] [id number] [place] [address] Feb, [facility] [place] [facility] [address] [id number] [place] [address] Feb, [facility] [place] [facility] [address] [id number] [place] [address] January, [facility] [place] [facility] [address] [id number] [place] [address] January, [facility] [place] [facility] [address] [id number] [place] [address] January, [facility] [place] [facility] [address] [id number] [place] [address] January, [facility] [place] [facility] [address] [id number] [place] [address] Nov, [facility] [place] [facility] [address] [id number] [place] [address] Nov, [facility] [place] [facility] [address] [id number] [place] [address] Nov, [facility] [place] [facility] [address] [id number] [place] [address] Nov, [facility] [place] [facility] [address] [id number] [place] [address] Oct, [facility] [place] [facility] [address] [id number] [place] [address] Oct, [facility] [place] [facility] [address] [id number] [place] [address] Sep, [facility] [place] [facility] [address] [id number] [place] [address] Sep, [facility] [place] [facility] [address] [id number] [place] [address] Sep, [facility] [place] [facility] [address] [id number] [place] [address] Sep, [facility] [place] [facility] [address] [id number] [address] Aug, [facility] [place] [facility] [address] [id number] [place] [address] Aug, [facility] [place] [facility] [address] [id number] [place] [address] Aug, [facility] [place] [facility] [address] [id number] [place] [address] Aug, [facility] [place] [facility] [address] [id number] [place] [address] 05 Aug, 2013 [facility] [address] [id number] [place] [address] Aug, [facility] [place] [facility] [address] [id number] [place] [address] Aug, [facility] [place] [facility] [address] [id number] [place] [address] Jul, [facility] [place] [facility] [address] [id number] [place] [address] Jul, [facility] [place] [facility] [address] [id number] [place] [address] Jul, [facility] [place] [facility] [address] [id number] [place] [address] Jul, [facility] [place] [facility] [address] [id number] [place] [address] Jul, [facility] [place] [facility] [address] [id number] [place] [address] Jul, [facility] [place] [facility] [address] [id number] [place] [address] Jul, [facility] [place] [facility] [address] [id number] [place] [address] Jun, [facility] [place] [facility] [address] [id number] [place] [address] Jun, [facility] [place] [facility] [address] [id number] [place] [address] Jun, [facility] [place] [facility] [address] [id number] [place] [address] Jun, [facility] [place] [facility] [address] [id number] [place] [address] 24 Jul, 2010 [facility] [place] [facility] [address] [id number] [address] 16 Jul, 2010 [facility] [id number] [address] Jul, [facility] [id number] [address] Jul, [facility] [id number] [address] Jun, [facility] [id number] [place] [id number] Jun, [facility] [id number] [place] [id number] Jun, [facility] [id number] [place] [address] Jun, [facility] [id number] [place] [address] Jun, [facility] [id number] [place] [address] Mar, [facility] [id number] [address] January, IMMUNIZATIONS No Known Immunizations SOCIAL HISTORY Never Assessed REASON FOR VISIT lab results PLAN OF CARE VITAL SIGNS MEDICATIONS Unknown [...] child Hospitalization History low blood pressure--via [facility] 12/2017
--- OUTSIDE RECORDS SUMMARY | 2019-04-09 01:30 | XMS REPORT ---
Author Author SHABANA DELGADO Organization [facility] Address [address] [place] [address] Care Team Providers Care Operator Engineer Name Role Phone CHRISTYCLARISSAAASHISH SHABANA Unavailable PROBLEMS Type Condition ICD9-CM Code WEO63-JQ Code Onset Dates Condition Status SNOMED Code Problem Cervicalgia M54.2 Active 190065020 Problem COPD with acute exacerbation J44.1 Active 950396567 Problem Anxiety F41.9 Active 01469106 Problem Tobacco abuse Z72.0 Active 84471151 Problem Dyslipidemia E78.5 Active 033784299 Problem Chest pain R07.9 Active 16650160 Problem Nausea R11.0 Active 795225769 Problem Menopause Z78.0 Active 879443002 Problem Postmenopausal HRT (hormone replacement therapy) Z79.890 Active 87275836 Problem Chronic headaches R51 Active 274320126 Problem Hypertension I10 Active 47880312 Problem 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 Active 93590069 Problem Environmental allergies Z91.09 Active 097240361 Problem Insomnia G47.00 Active 454290471 Problem Hepatitis C B19.20 Active 50719919 Problem Depression F32.9 Active 64949392 Problem Chronic pain G89.29 Active 69713844 Problem GERD (gastroesophageal reflux disease) K21.9 Active 435687392 ALLERGIES No Information ENCOUNTERS Encounter Location Date Diagnosis [facility] [address] [id number] [place] [id number] Jun, [facility] [address] [facility] [id number] [id number] Jun, Dyslipidemia E78.5 [facility] [address] [id number] [id number] Jun, Chronic pain G89.29 [facility] [address] [id number] [id number] May, [address] [place] [id number] May, Chronic pain G89.29 ; Tobacco abuse Z72.0 ; High risk medication use Z79.899 ; Dyslipidemia E78.5 ; Hepatitis C B19.20 ; Hypertension I10 ; Environmental allergies Z91.09 ; Anxiety F41.9 ; 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 and GERD (gastroesophageal reflux disease) K21.9 [place] [id number] [place] [id number] Apr, Chronic pain G89.29 [place] [address] [address] Mar, Costochondral separation, initial encounter S23.29XA and Injury of toe on left foot, initial encounter S99.922A [address] [id number] Mar, Chronic pain G89.29 [place] [address] [address] Feb, Poison elda L23.[address] [id number] Feb, Chronic pain G89.29 [place] [address] [address] Feb, Bronchitis J40 [place] [id number] [place] [id number] Feb, [address] [id number] Feb, Chronic pain G89.[address] [id number] January, Vaginal discharge N89.8 ; Increased urinary frequency R35.0 ; Acute cystitis with hematuria N30.01 ; Other specified bacterial agents as the cause of diseases classified elsewhere B96.89 and Acute vaginitis N76.[address] [id number] January, Chronic pain G89.29 and Candidiasis B37.9 [facility] [id number] [place] [address] January, [facility] [address] [place] [place] [id number] [place] [address] Dec, Acute frontal sinusitis, recurrence not specified J01.10 and Cough R05 [facility] [address] [id number] [place] [id number] Dec, [facility] [id number] [place] [address] [id number] Nov, [facility] [address] [address] Nov, Bronchitis J40 [address] [id number] [id number] Nov, [facility] [id number] [place] [address] Oct, COPD with acute exacerbation J44.1 [facility] [id number] [place] [id number] Oct, Chronic pain G89.29 [place] [id number] [place] [id number] Oct, [facility] [id number] [place] [id number] Sep, Chronic pain G89.29 ; Depression F32.9 ; Anxiety F41.9 ; 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 and Flu-like symptoms R68.89 [facility] [place] [place] [id number] [place] [address] Aug, Chronic pain G89.29 ; Open bite of other finger without damage to nail, initial encounter S61.258A and Bitten by dog, initial encounter W54.0XXA [facility] [address] [place] [address] 13 Jul, 2017 Menopause Z78.0 ; Ankle swelling, unspecified laterality M25.473 ; Chronic pain G89.29 and Tobacco abuse Z72.0 [facility] [id number] [place] [address] Jun, [facility] [address] [address] Jun, Chronic pain G89.29 [facility] [address] [address] May, Dysuria R30.0 ; Dehydration E86.0 and Hypertension I10 [facility] [address] [address] 19 May, 2017 Menopause Z78.0 ; Depression F32.9 ; Chronic pain G89.29 ; Environmental allergies Z91.09 ; 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 and Encounter for immunization Z23 [place] [address] [address] May, Chronic pain G89.29 [facility] [address] [address] Apr, Chronic pain G89.29 [place] [address] [address] Apr, Routine gynecological examination Z01.419 [place] [address] [address] Mar, Chronic pain G89.29 [facility] [address] [address] Feb, [place] [address] [address] Feb, Chronic pain G89.29 [facility] [address] [address] Feb, [place] [address] [address] January, Chronic pain G89.29 [place] [address] [place] [address] January, Routine gynecological examination Z01.419 and Breast cancer screening Z12.39 [place] [address] [place] [address] January, Chronic pain G89.29 [place] [address] [place] [id number] [place] [address] Dec, Postmenopausal HRT (hormone replacement therapy) Z79.890 [place] [address] [place] [id number] [place] [address] Dec, [place] [address] [place] [id number] [place] [address] Nov, Chronic pain G89.29 [place] [address] [place] [id number] [place] [address] Nov, Chronic headaches R51 ; GERD (gastroesophageal reflux disease) K21.9 ; Hypertension I10 ; 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 ; Hepatitis C B19.20 ; Chronic pain G89.29 ; Pain of right thumb M79.644 ; Insomnia G47.00 ; Depression F32.9 ; Environmental allergies Z91.09 and Closed fracture of tuft of distal phalanx of finger, with routine healing, subsequent encounter S62.639D [place] [address] [place] [place] [id number] [place] [address] Nov, [place] [address] [place] [id number] [place] [address] Nov, [place] [address] [place] [id number] [place] [address] Nov, [place] [address] [place] [id number] [place] [address] Nov, Hypertension I10 [place] [id number] [place] [address] Nov, [facility] [address], [place] [address] Nov, [facility] [address] [id number] [place] [address] Oct, Anxiety F41.9 [facility] [address] [id number] [place] [address] Oct, [facility] [id number] [place] [address] Oct, Acute upper respiratory infection, unspecified J06.9 and Other viral agents as the cause of diseases classified elsewhere B97.89 [facility] [id number] [place] [address] Oct, [facility] [id number] [place] [address] Oct, Right acute serous otitis media, recurrence not specified H65.01 and Pharyngitis, unspecified etiology J02.9 [facility] [address] [place] [address] Sep, [facility] [address] [id number] [place] [address] Aug, Environmental allergies Z91.09 [facility] [id number] [place] [address] Aug, [facility] [address] [place] [address] Jul, Atypical nevi D22.9 [facility] [address] [place] [address] Jul, [facility] [address] [id number] [place] [address] 10 Jul, 2016 [facility] [address] [place] [address] Jul, [facility] [address], [place] [address] Jun, [facility] [address] [id number] [place] [address] May, [facility] [id number] [place] [address] May, [facility] [address] [id number] [place] [address] May, [facility] [id number] [place] [address] Apr, [facility] [address] [id number] [place] [address] Apr, Chronic headaches R51 ; GERD (gastroesophageal reflux disease) K21.9 ; Hypertension I10 ; 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 ; Anxiety F41.9 ; COPD with acute exacerbation J44.1 ; Environmental allergies Z91.09 ; Depression F32.9 and Chronic pain G89.29 [facility] [address] [id number] [place] [address] Feb, Chronic headaches R51 and Chronic pain G89.29 [facility] [address] [id number] [place] [address] January, Chronic pain G89.29 and Anxiety F41.9 [facility] [id number] [place] [address] January, Depression F32.9 and Hypertension I10 [facility] [id number] [place] [address] January, Chronic pain G89.29 [facility] [id number] [place] [address] Dec, [facility] [address] [place] [address] Dec, [facility] [address] [place] [address] Dec, Chronic headaches R51 ; Chronic pain G89.29 ; Environmental allergies Z91.09 ; GERD (gastroesophageal reflux disease) K21.9 ; Insomnia G47.00 ; Hypertension I10 and COPD with acute exacerbation J44.1 [place] [address] [address] 14 Dec, 2015 [place] [address] [address] Dec, Chest pain R07.9 ; GERD (gastroesophageal reflux disease) K21.9 and Nausea R11.[address] [address] Nov, [place] [address] [address] 24 Oct, 2015 COPD with acute exacerbation J44.1 ; Chronic headaches R51 ; GERD (gastroesophageal reflux disease) K21.9 ; Insomnia G47.00 ; Hypertension I10 ; Depression F32.9 and Anxiety F41.9 [place] [address] [address] Oct, [place] [address] [address] Oct, [place] [address] [address] Oct, [place] [address] [address] Oct, [place] [address] [address] 15 Oct, 2015 Flu-like symptoms R68.89 and COPD with acute exacerbation J44.1 [place] [address] [address] 12 Oct, 2015 [place] [address] [address] Oct, Left shoulder pain M25.512 ; Chronic headaches R51 ; Environmental allergies Z91.09 ; GERD (gastroesophageal reflux disease) K21.9 ; Insomnia G47.00 ; Hypertension I10 ; Depression F32.9 and 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 [place] [address] [place] [id number] [place] [address] Sep, [place] [address] [address] Sep, COPD (chronic obstructive pulmonary disease) J44.9 [place] [address] [address] Sep, Bronchitis J40 [address] [address] Aug, Cervicalgia 723.1 ; Chronic hepatitis C without mention of hepatic coma 070.54 ; Essential hypertension 401.9 ; Chronic headaches R51 ; Environmental allergies Z91.09 ; GERD (gastroesophageal reflux disease) K21.9 ; Insomnia G47.00 ; Depression F32.9 and COPD (chronic obstructive pulmonary disease) J44.[address] [address] Jul, Essential hypertension 401.9 ; Hypertension I10 ; Depression F32.9 ; Anxiety F41.9 ; Chronic headaches R51 and Cervicalgia M54.2 [place] [id number] [place] [address] Jul, Essential hypertension 401.9 and Anxiety F41.9 [place] [id number] [place] [address] Jul, [address] [address] Jul, [place] [address] [address] Jul, Insomnia G47.00 ; GERD (gastroesophageal reflux disease) K21.9 ; Essential hypertension 401.9 ; Bipolar I disorder, most recent episode (or current) depressed, moderate 296.52 ; Hepatitis C B19.20 ; Depression F32.9 ; Hypertension I10 ; 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 ; Chronic headaches R51 and Chronic pain G89.29 [facility] [address] [place] [id number] [place] [address] Jun, [facility] [address] [address] Jun, Chronic headaches R51 ; Environmental allergies Z91.09 ; GERD (gastroesophageal reflux disease) K21.9 ; Insomnia G47.00 ; Hepatitis C B19.20 ; Hypertension I10 ; Depression F32.9 ; 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54 ; Essential hypertension 401.9 ; Environmental allergies V15.09 and GERD (gastroesophageal reflux disease) 530.81 [place] [address] [place] [id number] [place] [address] Mar, [place] [id number] [place] [address] Mar, [facility] [address] [id number] [place] [address] Mar, [place] [address] [id number] [address] Mar, [facility] [address], [place] [address] Mar, [facility] [address], [place] [address] Feb, Routine gynecological examination V72.31 ; Breast cancer screening V76.10 and Tobacco abuse 305.1 [facility] [address], [place] [address] Feb, [facility] [address], [place] [address] January, [facility] [address], [place] [address] January, [facility] [address] [address] January, [facility] [address], [place] [address] January, [facility] [address], [place] [address] January, Mood disorder 296.90 and Anxiety 300.00 [facility] [address], [place] [address] January, [facility] [address], [place] [address] Dec, Headache 784.0 ; Other chronic pain 338.29 and Cervicalgia 723.1 [facility] [address], [place] [address] Dec, [facility] [address] [id number] [address] Dec, [facility] [address], [place] [address] Nov, [facility] [address] [place] [place] [id number] [place] [address] Nov, [facility] [place] [facility] [address] [id number] [place] [address] Oct, 2014 [facility] [place] [facility] [address] [id number] [place] [address] Oct, 2014 [facility] [place] [facility] [address] [facility] [id number] [place] [address] Oct, 2014 [facility] [place] [facility] [address] [id number] [place] [address] Oct, [facility] [place] [facility] [address] [facility] [id number] [place] [address] Oct, [facility] [place] [facility] [address] [facility] [id number] [place] [address] Oct, [facility] [place] [facility] [address] [facility] [id number] [place] [address] Oct, [facility] [place] [facility] [address] [facility] [id number] [place] [address] Oct, [facility] [place] [facility] [address] [facility] [id number] [place] [address] Oct, [facility] [place] [facility] [address] [facility] [id number], [place] [address] Oct, [facility] [place] [facility] [address] [facility] [id number], [place] [address] Oct, [facility] [place] [facility] [address] [facility] [id number] [place] [address] Oct, [facility] [place] [facility] [address] [facility] [id number], [place] [address] Sep, [facility] [place] [facility] [address] [facility] [id number], [place] [address] Sep, [facility] [place] [facility] [address] [facility] [id number], [place] [address] Sep, [facility] [place] [facility] [address] [id number] [place] [address] Sep, [facility] [place] [facility] [address] [id number] [place] [address] Sep, [facility] [place] [facility] [address] [id number] [place] [address] Sep, [facility] [place] [facility] [address] [id number] [place] [address] Sep, [facility] [place] [facility] [address] [id number] [place] [address] Sep, [facility] [place] [facility] [address] [id number] [place] [address] Sep, [facility] [place] [facility] [address] [id number] [place] [address] Sep, [facility] [place] [facility] [address] [id number] [place] [address] Sep, [facility] [place] [facility] [address] [id number] [place] [address] Sep, [facility] [place] [facility] [address] [id number] [place] [address] Sep, [facility] [place] [facility] [address] [id number], [place] [address] Sep, [facility] [place] [facility] [address] [id number] [place] [address] Aug, [facility] [place] [facility] [address] [id number] [place] [address] Aug, [facility] [place] [facility] [address] [id number] [place] [address] Aug, [facility] [place] [facility] [address] [id number] [place] [address] Aug, [facility] [place] [facility] [address] [id number] [place] [address] Aug, [facility] [address] [id number] [place] [address] Aug, [facility] [place] [facility] [address] [id number] [place] [address] Aug, [facility] [place] [facility] [address] [id number] [place] [address] Aug, [facility] [place] [facility] [address] [id number] [place] [address] Aug, [facility] [place] [facility] [address] [id number] [place] [address] Aug, [facility] [place] [facility] [address] [id number] [place] [address] Aug, [facility] [place] [facility] [address] [id number] [place] [address] Aug, [facility] [place] [facility] [address] [id number] [place] [address] Aug, [facility] [place] [facility] [address] [id number] [place] [address] Jul, [facility] [place] [facility] [address] [id number] [place] [address] Jul, [facility] [place] [facility] [address] [id number] [place] [address] Feb, [facility] [place] [facility] [address] [id number] [place] [address] Feb, [facility] [place] [facility] [address] [id number] [place] [address] January, [facility] [place] [facility] [address] [id number] [place] [address] January, [facility] [place] [facility] [address] [id number] [place] [address] January, [facility] [place] [facility] [address] [id number] [place] [address] January, [facility] [place] [facility] [address] [id number] [place] [address] Nov, [facility] [place] [facility] [address] [id number] [place] [address] Nov, [facility] [place] [facility] [address] [id number] [place] [address] Nov, [facility] [place] [facility] [address] [id number] [place] [address] Nov, [facility] [place] [facility] [address] [id number] [place] [address] Oct, [facility] [place] [facility] [address] [id number] [place] [address] Oct, [facility] [place] [facility] [address] [id number] [place] [address] Sep, [facility] [place] [facility] [address] [id number] [place] [address] Sep, [facility] [place] [facility] [address] [id number] [place] [address] Sep, [facility] [place] [facility] [address] [id number] [place] [address] Sep, [facility] [place] [facility] [address] [id number], [place] [address] Aug, [facility] [place] [facility] [address] [id number] [place] [address] Aug, [facility] [place] [facility] [address] [id number] [place] [address] Aug, [facility] [place] [facility] [address] [id number] [place] [address] Aug, [facility] [place] [facility] [address] [id number] [place] [address] 05 Aug, 2013 [facility] [address] [id number] [place] [address] Aug, [facility] [place] [facility] [address] [id number] [place] [address] Aug, [facility] [place] [facility] [address] [id number] [place] [address] Jul, [facility] [place] [facility] [address] [id number] [place] [address] Jul, [facility] [place] [facility] [address] [id number] [place] [address] Jul, [facility] [place] [facility] [address] [id number] [place] [address] Jul, [facility] [place] [facility] [address] [id number] [place] [address] Jul, [facility] [place] [facility] [address] [id number] [place] [address] Jul, [facility] [place] [facility] [address] [id number] [place] [address] Jul, [facility] [place] [facility] [address] [id number] [place] [address] Jun, [facility] [place] [facility] [address] [id number] [place] [address] Jun, [facility] [place] [facility] [address] [id number] [place] [address] Jun, [facility] [place] [facility] [address] [id number] [place] [address] Jun, [facility] [place] [facility] [address] [id number] [place] [address] 24 Jul, 2010 [facility] [place] [facility] [address] [id number], [place] [address] 16 Jul, 2010 [facility] [id number] [address] Jul, [facility] [address] [id number] [place] [address] Jul, [facility] [id number] [place] [address] Jun, [facility] [id number] [place] [id number] Jun, [facility] [id number] [place] [address] Jun, [facility] [id number] [place] [id number] Jun, [facility] [id number] [place] [address] Jun, [facility] [id number] [place] [address] Mar, [facility] [id number] [place] [address] January, IMMUNIZATIONS No Known Immunizations SOCIAL HISTORY Never Assessed REASON FOR VISIT Increase Crestor PLAN OF CARE VITAL SIGNS MEDICATIONS Medication Instructions Dosage Frequency Start Date End Date Duration Status Crestor 20 mg Orally Once a day 1 tablet 24h 10 Jun, 2018 30 day(s) Active RESULTS No Results [...] History child Hospitalization History low blood pressure--via [facility] 12/2017
--- OUTSIDE RECORDS SUMMARY | 2019-04-09 01:31 | XMS REPORT ---
Author Author SHABANA DELGADO Organization [facility] Address [address] [place] [address] Care Team Providers Care Facility Assistant Name Role Phone CHRISTYCLARISSAAASHISH SHABANA Unavailable PROBLEMS Type Condition ICD9-CM Code [id number] Code Onset Dates Condition Status SNOMED Code Problem Cervicalgia M54.2 Active 709583942 Problem COPD with acute exacerbation J44.1 Active 021648894 Problem Anxiety F41.9 Active 73836570 Problem Tobacco abuse Z72.0 Active 13373647 Problem Dyslipidemia E78.5 Active 658096233 Problem Chest pain R07.9 Active 16243605 Problem Nausea R11.0 Active 617712863 Problem Menopause Z78.0 Active 172211257 Problem Postmenopausal HRT (hormone replacement therapy) Z79.890 Active 87616229 Problem Chronic headaches R51 Active 237854033 Problem Hypertension I10 Active 52666295 Problem 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.9 Active 28583014 Problem Environmental allergies Z91.09 Active 412489035 Problem Insomnia G47.00 Active 255962363 Problem Hepatitis C B19.20 Active 20955150 Problem Depression F32.9 Active 27482810 Problem Chronic pain G89.29 Active 85452642 Problem GERD (gastroesophageal reflux disease) K21.9 Active 700681362 ALLERGIES No Information ENCOUNTERS Encounter Location Date Diagnosis [facility] [address] [facility] [id number] [id number] Jun, Chronic pain G89.29 [facility] [address] [id number] [id number] May, [facility] [address] [id number] [id number] May, Chronic pain G89.29 ; Tobacco abuse Z72.0 ; High risk medication use Z79.899 ; Dyslipidemia E78.5 ; Hepatitis C B19.20 ; Hypertension I10 ; Environmental allergies Z91.09 ; Anxiety F41.9 ; 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 and GERD (gastroesophageal reflux disease) K21.[address] [id number] Apr, Chronic pain G89.29 [facility] [address] [address] Mar, Costochondral separation, initial encounter S23.29XA and Injury of toe on left foot, initial encounter S99.922A [address] [id number] Mar, Chronic pain G89.29 [place] [address] [address] Feb, Poison elda L23.[address] [id number] Feb, Chronic pain G89.29 [place] [address] [address] Feb, Bronchitis J40 [address] [id number] Feb, [address] [id number] Feb, Chronic pain G89.[address] [id number] January, Vaginal discharge N89.8 ; Increased urinary frequency R35.0 ; Acute cystitis with hematuria N30.01 ; Other specified bacterial agents as the cause of diseases classified elsewhere B96.89 and Acute vaginitis N76.[address] [id number] January, Chronic pain G89.29 and Candidiasis B37.9 [facility] [address] [address] January, [facility] [address] [place] [address] Dec, Acute frontal sinusitis, recurrence not specified J01.10 and Cough R05 [facility] [id number] [place] [id number] Dec, [facility] [id number] [place] [id number] Nov, [facility] [address] [address] Nov, Bronchitis J40 [address] [id number] [id number] Nov, [facility] [address] [place] [address] Oct, COPD with acute exacerbation J44.1 [place] [id number] [place] [id number] Oct, Chronic pain G89.29 [place] [id number] [place] [id number] Oct, [place] [id number] [place] [id number] Sep, Chronic pain G89.29 ; Depression F32.9 ; Anxiety F41.9 ; 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 and Flu-like symptoms R68.89 [facility] [id number] [address] Aug, Chronic pain G89.29 ; Open bite of other finger without damage to nail, initial encounter S61.258A and Bitten by dog, initial encounter W54.0XXA [facility] [id number] [place] [address] Jul, Menopause Z78.0 ; Ankle swelling, unspecified laterality M25.473 ; Chronic pain G89.29 and Tobacco abuse Z72.0 [facility] [id number] [place] [address] Jun, [facility] [address] [place] [address] Jun, Chronic pain G89.29 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 and Encounter for immunization Z23 [facility] [address] [address] 18 May, 2017 Chronic pain G89.29 [facility] [id number] [place] [address] Apr, Chronic pain G89.29 [facility] [address] [address] Apr, Routine gynecological examination Z01.419 [facility] [address] [address] Mar, Chronic pain G89.29 [facility] [id number] [place] [address] Feb, [facility] [address] [address] Feb, Chronic pain G89.29 [facility] [id number] [place] [address] Feb, [facility] [address] [address] January, Chronic pain G89.29 [facility] [id number] [place] [address] January, Routine gynecological examination Z01.419 and Breast cancer screening Z12.39 [facility] [id number] [place] [address] January, Chronic pain G89.29 [facility] [id number] [place] [address] Dec, Postmenopausal HRT (hormone replacement therapy) Z79.890 [place] [id number] [place] [address] Dec, [facility] [address] [address] Nov, Chronic pain G89.29 [place] [address] [address] Nov, Chronic headaches R51 ; GERD (gastroesophageal reflux disease) K21.9 ; Hypertension I10 ; 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 ; Hepatitis C B19.20 ; Chronic pain G89.29 ; Pain of right thumb M79.644 ; Insomnia G47.00 ; Depression F32.9 ; Environmental allergies Z91.09 and Closed fracture of tuft of distal phalanx of finger, with routine healing, subsequent encounter S62.639D [place] [address] [address] Nov, [place] [id number] [place] [address] Nov, [place] [id number] [place] [address] Nov, [place] [id number] [place] [address] Nov, Hypertension I10 [place] [address] [address] Nov, [place] [id number] [place] [address] Nov, [place] [address] [address] Oct, Anxiety F41.9 [facility] [id number] [place] [address] Oct, [facility] [id number] [place] [address] Oct, Acute upper respiratory infection, unspecified J06.9 and Other viral agents as the cause of diseases classified elsewhere B97.89 [facility] [id number] [place] [address] Oct, [facility] [id number] [place] [address] Oct, Right acute serous otitis media, recurrence not specified H65.01 and Pharyngitis, unspecified etiology J02.9 [facility] [id number] [place] [address] Sep, [facility] [id number] [place] [address] Aug, Environmental allergies Z91.09 [facility] [id number] [place] [address] Aug, [facility] [id number] [place] [address] Jul, Atypical nevi D22.9 [facility] [id number] [place] [address] Jul, [facility] [id number] [place] [address] Jul, [facility] [id number] [place] [address] 07 Jul, 2016 [facility] [id number] [place] [address] Jun, [facility] [id number] [place] [address] May, [facility] [id number] [place] [address] 13 May, 2016 [place] [address] [address] May, [facility] [id number] [place] [address] Apr, [place] [id number] [place] [address] Apr, Chronic headaches R51 ; GERD (gastroesophageal reflux disease) K21.9 ; Hypertension I10 ; 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 ; Anxiety F41.9 ; COPD with acute exacerbation J44.1 ; Environmental allergies Z91.09 ; Depression F32.9 and Chronic pain G89.29 [place] [id number] [place] [address] Feb, Chronic headaches R51 and Chronic pain G89.29 [place] [id number] [place] [address] January, Chronic pain G89.29 and Anxiety F41.9 [place] [id number] [place] [address] January, Depression F32.9 and Hypertension I10 [place] [id number] [place] [address] January, Chronic pain G89.29 [place] [id number] [place] [address] Dec, [place] [id number] [place] [address] Dec, [place] [id number] [place] [address] Dec, Chronic headaches R51 ; Chronic pain G89.29 ; Environmental allergies Z91.09 ; GERD (gastroesophageal reflux disease) K21.9 ; Insomnia G47.00 ; Hypertension I10 and COPD with acute exacerbation J44.1 [place] [address] [address] 14 Dec, 2015 [place] [id number] 06 Dec, 2015 Chest pain R07.9 ; GERD (gastroesophageal reflux disease) K21.9 and Nausea R11.[address] [address] Nov, [address] [address] 24 Oct, 2015 COPD with acute exacerbation J44.1 ; Chronic headaches R51 ; GERD (gastroesophageal reflux disease) K21.9 ; Insomnia G47.00 ; Hypertension I10 ; Depression F32.9 and Anxiety F41.[address] [address] Oct, [address] [address] Oct, [address] [address] Oct, [address] [address] Oct, [address] [address] 15 Oct, 2015 Flu-like symptoms R68.89 and COPD with acute exacerbation J44.[address] [address] Oct, [address] [address] 11 Oct, 2015 Left shoulder pain M25.512 ; Chronic headaches R51 ; Environmental allergies Z91.09 ; GERD (gastroesophageal reflux disease) K21.9 ; Insomnia G47.00 ; Hypertension I10 ; Depression F32.9 and 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 [place] [id number] [place] [address] Sep, [place] [address] [address] Sep, COPD (chronic obstructive pulmonary disease) J44.9 [place] [address] [address] Sep, Bronchitis J40 [place] [address] [address] Aug, Cervicalgia 723.1 ; Chronic hepatitis C without mention of hepatic coma 070.54 ; Essential hypertension 401.9 ; Chronic headaches R51 ; Environmental allergies Z91.09 ; GERD (gastroesophageal reflux disease) K21.9 ; Insomnia G47.00 ; Depression F32.9 and COPD (chronic obstructive pulmonary disease) J44.[address] [address] Jul, Essential hypertension 401.9 ; Hypertension I10 ; Depression F32.9 ; Anxiety F41.9 ; Chronic headaches R51 and Cervicalgia M54.2 [place] [id number] [place] [address] Jul, Essential hypertension 401.9 and Anxiety F41.9 [place] [id number] [place] [address] Jul, [address] [address] Jul, [place] [id number] [place] [address] Jul, Insomnia G47.00 ; GERD (gastroesophageal reflux disease) K21.9 ; Essential hypertension 401.9 ; Bipolar I disorder, most recent episode (or current) depressed, moderate 296.52 ; Hepatitis C B19.20 ; Depression F32.9 ; Hypertension I10 ; 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 ; Chronic headaches R51 and Chronic pain G89.29 [facility] [id number] [place] [address] Jun, [facility] [address] [place] [id number] [place] [address] Jun, Chronic headaches R51 ; Environmental allergies Z91.09 ; GERD (gastroesophageal reflux disease) K21.9 ; Insomnia G47.00 ; Hepatitis C B19.20 ; Hypertension I10 ; Depression F32.9 ; 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 and Chronic pain G89.29 [place] [id number] [place] [address] Jun, [address] [address] Jun, Vision changes H53.9 [place] [id number] [place] [address] Apr, [place] [id number] [place] [address] Apr, Bipolar I disorder, most recent episode (or current) depressed, moderate 296.52 ; Other chronic pain 338.29 ; Chronic hepatitis C without mention of hepatic coma 070.54 ; Essential hypertension 401.9 ; Environmental allergies V15.09 and GERD (gastroesophageal reflux disease) 530.81 [place] [id number] [place] [address] Mar, [place] [id number] [place] [address] Mar, [place] [id number] [place] [address] Mar, [place] [id number] [place] [address] Mar, [facility] [address] [id number] [place] [address] Mar, [address] [address] Feb, Routine gynecological examination V72.31 ; Breast cancer screening V76.10 and Tobacco abuse 305.1 [facility] [address] [address] Feb, [facility] [address] [address] January, [facility] [id number] [place] [address] January, [facility] [address] [place] [address] January, [facility] [id number] [place] [address] January, [facility] [address] [place] [address] January, Mood disorder 296.90 and Anxiety 300.00 [facility] [address], [place] [address] January, [facility] [address] [place] [address] Dec, Headache 784.0 ; Other chronic pain 338.29 and Cervicalgia 723.1 [facility] [address], [place] [address] Dec, [facility] [address], [place] [address] Dec, [facility] [address], [place] [address] Nov, [facility] [address], [place] [address] Nov, [facility] [address], [place] [address] Oct, [facility] [id number] [place] [address] Oct, 2014 [facility] [place] [facility] [address] [id number] [place] [address] Oct, 2014 [facility] [place] [facility] [address] [id number] [place] [address] Oct, 2014 [facility] [place] [facility] [address] [id number] [place] [address] Oct, 2014 [facility] [place] [facility] [address] [id number] [place] [address] Oct, 2014 [facility] [place] [facility] [address] [id number] [place] [address] Oct, 2014 [facility] [place] [facility] [address] [facility] [id number] [place] [address] Oct, 2014 [facility] [place] [facility] [address] [facility] [id number] [place] [address] Oct, 2014 [facility] [place] [facility] [address] [facility] [id number] [place] [address] Oct, [facility] [place] [facility] [address] [facility] [id number] [place] [address] Oct, [facility] [place] [facility] [address] [facility] [id number] [place] [address] Oct, [facility] [place] [facility] [address] [facility] [id number], [place] [address] Sep, [facility] [place] [facility] [address] [id number] [place] [address] Sep, [facility] [place] [facility] [address] [id number], [place] [address] Sep, [facility] [place] [facility] [address] [facility] [id number], [place] [address] Sep, [facility] [place] [facility] [address] [facility] [id number], [place] [address] Sep, [facility] [place] [facility] [address] [id number] [place] [address] Sep, [facility] [place] [facility] [address] [id number] [place] [address] Sep, [facility] [place] [facility] [address] [id number] [place] [address] Sep, [facility] [place] [facility] [address] [id number] [place] [address] Sep, [facility] [place] [facility] [address] [id number] [place] [address] Sep, [facility] [place] [facility] [address] [id number] [place] [address] Sep, [facility] [place] [facility] [address] [id number] [place] [address] Sep, [facility] [place] [facility] [address] [id number] [place] [address] Sep, [facility] [place] [facility] [address] [id number] [place] [address] Sep, [facility] [place] [facility] [address] [id number] [place] [address] Aug, [facility] [place] [facility] [address] [id number] [place] [address] Aug, [facility] [place] [facility] [address] [id number] [place] [address] Aug, [facility] [place] [facility] [address] [id number] [place] [address] Aug, [facility] [place] [facility] [address] [id number] [place] [address] Aug, [facility] [place] [facility] [address] [id number] [place] [address] Aug, [facility] [place] [facility] [address] [id number] [place] [address] Aug, [facility] [place] [facility] [address] [id number] [place] [address] Aug, [facility] [place] [facility] [address] [id number] [place] [address] Aug, [facility] [place] [facility] [address] [id number] [place] [address] Aug, [facility] [place] [facility] [address] [id number] [place] [address] Aug, [facility] [place] [facility] [address] [id number] [place] [address] Aug, [facility] [place] [facility] [address] [id number] [place] [address] Aug, [facility] [place] [facility] [address] [id number] [place] [address] Jul, [facility] [place] [facility] [address] [id number] [place] [address] Jul, [facility] [place] [facility] [address] [id number] [place] [address] Feb, [facility] [place] [facility] [address] [id number] [place] [address] Feb, [facility] [place] [facility] [address] [id number] [place] [address] January, [facility] [place] [facility] [address] [id number] [place] [address] January, [facility] [place] [facility] [address] [id number] [place] [address] January, [facility] [place] [facility] [address] [id number] [place] [address] January, [facility] [place] [facility] [address] [id number] [place] [address] Nov, [facility] [place] [facility] [address] [id number] [place] [address] Nov, [facility] [place] [facility] [address] [id number] [place] [address] Nov, [facility] [place] [facility] [address] [id number] [place] [address] Nov, [facility] [place] [facility] [address] [id number] [place] [address] Oct, [facility] [place] [facility] [address] [id number] [place] [address] Oct, [facility] [place] [facility] [address] [id number] [place] [address] Sep, [facility] [place] [facility] [address] [id number] [place] [address] Sep, [facility] [place] [facility] [address] [id number] [place] [address] Sep, [facility] [place] [facility] [address] [id number] [place] [address] Sep, [facility] [place] [facility] [address] [id number] [place] [address] Aug, [facility] [place] [facility] [address] [id number] [place] [address] Aug, [facility] [place] [facility] [address] [id number], [place] [address] Aug, [facility] [place] [facility] [address] [id number] [place] [address] Aug, [facility] [place] [facility] [address] [id number] [place] [address] Aug, [facility] [place] [facility] [address] [id number] [place] [address] Aug, [facility] [place] [facility] [address] [id number] [place] [address] Aug, [facility] [place] [facility] [address] [id number] [place] [address] Jul, [facility] [place] [facility] [address] [id number] [place] [address] Jul, [facility] [place] [facility] [address] [id number] [place] [address] Jul, [facility] [place] [facility] [address] [id number] [place] [address] Jul, [facility] [place] [facility] [address] [id number] [place] [address] Jul, [facility] [place] [facility] [address] [id number] [place] [address] Jul, [facility] [place] [facility] [address] [id number] [place] [address] Jul, [facility] [place] [facility] [address] [id number] [place] [address] Jun, [facility] [place] [facility] [address] [id number] [place] [address] Jun, [facility] [place] [facility] [address] [facility] [id number] [place] [address] Jun, [facility] [place] [facility] [address] [id number] [place] [address] Jun, [facility] [place] [facility] [address] [id number], [place] [address] 24 Jul, 2010 [facility] [place] [facility] [address] [id number] [place] [address] 16 Jul, 2010 [facility] [place] [facility] [address] [id number] [place] [address] Jul, [facility] [place] [facility] [address] [id number], [place] [address] Jul, [facility] [address] [id number] [address] Jun, [facility] [address] [id number], [place] [address] Jun, [facility] [id number], [place] [address] Jun, [facility] [id number], [place] [address] Jun, [facility] [id number], [place] [address] Jun, [facility] [address] [id number] [place] [address] Mar, [facility] [id number] [address] January, IMMUNIZATIONS No Known Immunizations SOCIAL HISTORY Never Assessed REASON FOR VISIT Controlled Med Refill PLAN OF CARE VITAL SIGNS MEDICATIONS Medication Instructions Dosage Frequency Start Date End Date Duration Status Oxycodone-Acetaminophen 5-325 MG Orally 3 times a day 1 tablet as needed 8h Jun, 0 days Active RESULTS No Results PROCEDURES [...]
--- OUTSIDE RECORDS SUMMARY | 2019-04-09 01:31 | XMS REPORT ---
Author Author SHABANA DELGADO Organization [facility] Address [address] [place] [address] Care Team Providers Care Forepart Laster Name Role Phone CHRISTYCLARISSAAASHISH SHABANA Unavailable PROBLEMS Type Condition ICD9-CM Code NMX78-WD Code Onset Dates Condition Status SNOMED Code Problem Cervicalgia M54.2 Active 569931100 Problem COPD with acute exacerbation J44.1 Active 087841510 Problem Anxiety F41.9 Active 46095345 Problem Tobacco abuse Z72.0 Active 41030575 Problem Dyslipidemia E78.5 Active 693852410 Problem Chest pain R07.9 Active 08313750 Problem Nausea R11.0 Active 852160672 Problem Menopause Z78.0 Active 103830264 Problem Postmenopausal HRT (hormone replacement therapy) Z79.890 Active 57545669 Problem Chronic headaches R51 Active 677038509 Problem Hypertension I10 Active 10540609 Problem 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 Active 29108941 Problem Environmental allergies Z91.09 Active 589185020 Problem Insomnia G47.00 Active 857329684 Problem Hepatitis C B19.20 Active 83391490 Problem Depression F32.9 Active 28939504 Problem Chronic pain G89.29 Active 16896766 Problem GERD (gastroesophageal reflux disease) K21.9 Active 130937138 ALLERGIES No Information ENCOUNTERS Encounter Location Date Diagnosis [facility] [address] [facility] [id number] [id number] Jun, Chronic pain G89.29 [facility] [address] [id number] [id number] May, [facility] [address] [id number] [id number] May, Chronic pain G89.29 ; Tobacco abuse Z72.0 ; High risk medication use Z79.899 ; Dyslipidemia E78.5 ; Hepatitis C B19.20 ; Hypertension I10 ; Environmental allergies Z91.09 ; Anxiety F41.9 ; 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 and GERD (gastroesophageal reflux disease) K21.[address] [id number] Apr, Chronic pain G89.29 [facility] [address] [address] Mar, Costochondral separation, initial encounter S23.29XA and Injury of toe on left foot, initial encounter S99.922A [address] [id number] Mar, Chronic pain G89.29 [place] [address] [address] Feb, Poison elda L23.[address] [id number] Feb, Chronic pain G89.29 [place] [address] [address] Feb, Bronchitis J40 [address] [id number] Feb, [address] [id number] Feb, Chronic pain G89.[address] [id number] January, Vaginal discharge N89.8 ; Increased urinary frequency R35.0 ; Acute cystitis with hematuria N30.01 ; Other specified bacterial agents as the cause of diseases classified elsewhere B96.89 and Acute vaginitis N76.[address] [id number] January, Chronic pain G89.29 and Candidiasis B37.9 [facility] [address] [address] January, [facility] [address] [place] [address] Dec, Acute frontal sinusitis, recurrence not specified J01.10 and Cough R05 [facility] [id number] [place] [id number] Dec, [facility] [id number] [place] [id number] Nov, [facility] [address] [address] Nov, Bronchitis J40 [address] [id number] [id number] Nov, [facility] [address] [place] [address] Oct, COPD with acute exacerbation J44.1 [place] [id number] [place] [id number] Oct, Chronic pain G89.29 [place] [id number] [place] [id number] Oct, [place] [id number] [place] [id number] Sep, Chronic pain G89.29 ; Depression F32.9 ; Anxiety F41.9 ; 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 and Flu-like symptoms R68.89 [facility] [place] [place] [id number] [place] [address] Aug, Chronic pain G89.29 ; Open bite of other finger without damage to nail, initial encounter S61.258A and Bitten by dog, initial encounter W54.0XXA [facility] [id number] [place] [address] Jul, Menopause Z78.0 ; Ankle swelling, unspecified laterality M25.473 ; Chronic pain G89.29 and Tobacco abuse Z72.0 [facility] [id number] [place] [address] Jun, [facility] [address] [place] [address] Jun, Chronic pain G89.29 [facility] [id number] [place] [address] 25 May, 2017 Dysuria R30.0 ; Dehydration E86.0 and Hypertension I10 [facility] [address] [address] 19 May, 2017 Menopause Z78.0 ; Depression F32.9 ; Chronic pain G89.29 ; Environmental allergies Z91.09 ; 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 and Encounter for immunization Z23 [facility] [address] [address] 18 May, 2017 Chronic pain G89.29 [facility] [id number] [place] [address] Apr, Chronic pain G89.29 [facility] [address] [address] Apr, Routine gynecological examination Z01.419 [facility] [address] [address] Mar, Chronic pain G89.29 [facility] [id number] [place] [address] Feb, [facility] [address] [address] Feb, Chronic pain G89.29 [facility] [id number] [place] [address] Feb, [facility] [address] [address] January, Chronic pain G89.29 [facility] [id number] [place] [address] January, Routine gynecological examination Z01.419 and Breast cancer screening Z12.39 [facility] [id number] [place] [address] January, Chronic pain G89.29 [facility] [id number] [place] [address] Dec, Postmenopausal HRT (hormone replacement therapy) Z79.890 [place] [id number] [place] [address] Dec, [facility] [address] [address] Nov, Chronic pain G89.29 [place] [address] [address] Nov, Chronic headaches R51 ; GERD (gastroesophageal reflux disease) K21.9 ; Hypertension I10 ; 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 ; Hepatitis C B19.20 ; Chronic pain G89.29 ; Pain of right thumb M79.644 ; Insomnia G47.00 ; Depression F32.9 ; Environmental allergies Z91.09 and Closed fracture of tuft of distal phalanx of finger, with routine healing, subsequent encounter S62.639D [place] [address] [address] Nov, [place] [id number] [place] [address] Nov, [place] [id number] [place] [address] Nov, [place] [id number] [place] [address] Nov, Hypertension I10 [place] [address] [address] Nov, [place] [id number] [place] [address] Nov, [place] [address] [address] Oct, Anxiety F41.9 [facility] [address] [place] [address] Oct, [facility] [id number] [place] [address] Oct, Acute upper respiratory infection, unspecified J06.9 and Other viral agents as the cause of diseases classified elsewhere B97.89 [facility] [id number] [place] [address] Oct, [facility] [id number] [place] [address] Oct, Right acute serous otitis media, recurrence not specified H65.01 and Pharyngitis, unspecified etiology J02.9 [facility] [id number] [place] [address] Sep, [facility] [id number] [place] [address] Aug, Environmental allergies Z91.09 [facility] [id number] [place] [address] Aug, [facility] [id number] [place] [address] Jul, Atypical nevi D22.9 [facility] [id number] [place] [address] Jul, [facility] [id number] [place] [address] Jul, [facility] [id number] [place] [address] 07 Jul, 2016 [facility] [id number] [place] [address] Jun, [facility] [id number] [place] [address] May, [facility] [id number] [place] [address] 13 May, 2016 [place] [address] [address] May, [facility] [id number] [place] [address] Apr, [place] [id number] [place] [address] Apr, Chronic headaches R51 ; GERD (gastroesophageal reflux disease) K21.9 ; Hypertension I10 ; 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 ; Anxiety F41.9 ; COPD with acute exacerbation J44.1 ; Environmental allergies Z91.09 ; Depression F32.9 and Chronic pain G89.29 [place] [id number] [place] [address] Feb, Chronic headaches R51 and Chronic pain G89.29 [place] [id number] [place] [address] January, Chronic pain G89.29 and Anxiety F41.9 [place] [id number] [place] [address] January, Depression F32.9 and Hypertension I10 [place] [id number] [place] [address] January, Chronic pain G89.29 [place] [id number] [place] [address] Dec, [place] [id number] [place] [address] Dec, [place] [id number] [place] [address] Dec, Chronic headaches R51 ; Chronic pain G89.29 ; Environmental allergies Z91.09 ; GERD (gastroesophageal reflux disease) K21.9 ; Insomnia G47.00 ; Hypertension I10 and COPD with acute exacerbation J44.1 [place] [address] [address] 14 Dec, 2015 [place] [id number] 06 Dec, 2015 Chest pain R07.9 ; GERD (gastroesophageal reflux disease) K21.9 and Nausea R11.[address] [address] Nov, [address] [address] 24 Oct, 2015 COPD with acute exacerbation J44.1 ; Chronic headaches R51 ; GERD (gastroesophageal reflux disease) K21.9 ; Insomnia G47.00 ; Hypertension I10 ; Depression F32.9 and Anxiety F41.[address] [address] Oct, [address] [address] Oct, [address] [address] Oct, [address] [address] Oct, [address] [address] 15 Oct, 2015 Flu-like symptoms R68.89 and COPD with acute exacerbation J44.[address] [address] Oct, [address] [address] 11 Oct, 2015 Left shoulder pain M25.512 ; Chronic headaches R51 ; Environmental allergies Z91.09 ; GERD (gastroesophageal reflux disease) K21.9 ; Insomnia G47.00 ; Hypertension I10 ; Depression F32.9 and 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 [place] [id number] [place] [address] Sep, [place] [address] [address] Sep, COPD (chronic obstructive pulmonary disease) J44.9 [place] [address] [address] Sep, Bronchitis J40 [place] [address] [address] Aug, Cervicalgia 723.1 ; Chronic hepatitis C without mention of hepatic coma 070.54 ; Essential hypertension 401.9 ; Chronic headaches R51 ; Environmental allergies Z91.09 ; GERD (gastroesophageal reflux disease) K21.9 ; Insomnia G47.00 ; Depression F32.9 and COPD (chronic obstructive pulmonary disease) J44.[address] [address] Jul, Essential hypertension 401.9 ; Hypertension I10 ; Depression F32.9 ; Anxiety F41.9 ; Chronic headaches R51 and Cervicalgia M54.2 [place] [id number] [place] [address] Jul, Essential hypertension 401.9 and Anxiety F41.9 [place] [id number] [place] [address] Jul, [address] [address] Jul, [place] [id number] [place] [address] Jul, Insomnia G47.00 ; GERD (gastroesophageal reflux disease) K21.9 ; Essential hypertension 401.9 ; Bipolar I disorder, most recent episode (or current) depressed, moderate 296.52 ; Hepatitis C B19.20 ; Depression F32.9 ; Hypertension I10 ; 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 ; Chronic headaches R51 and Chronic pain G89.29 [facility] [id number] [place] [address] Jun, [facility] [address] [place] [id number] [place] [address] Jun, Chronic headaches R51 ; Environmental allergies Z91.09 ; GERD (gastroesophageal reflux disease) K21.9 ; Insomnia G47.00 ; Hepatitis C B19.20 ; Hypertension I10 ; Depression F32.9 ; 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 and Chronic pain G89.29 [place] [id number] [place] [address] Jun, [address] [address] Jun, Vision changes H53.9 [place] [id number] [place] [address] Apr, [place] [id number] [place] [address] Apr, Bipolar I disorder, most recent episode (or current) depressed, moderate 296.52 ; Other chronic pain 338.29 ; Chronic hepatitis C without mention of hepatic coma 070.54 ; Essential hypertension 401.9 ; Environmental allergies V15.09 and GERD (gastroesophageal reflux disease) 530.81 [place] [id number] [place] [address] Mar, [place] [id number] [place] [address] Mar, [place] [id number] [place] [address] Mar, [place] [id number] [place] [address] Mar, [facility] [address] [place] [id number] [place] [address] Mar, [address] [address] Feb, Routine gynecological examination V72.31 ; Breast cancer screening V76.10 and Tobacco abuse 305.1 [facility] [address] [address] Feb, [facility] [address] [address] January, [facility] [id number] [place] [address] January, [facility] [address] [place] [address] January, [facility] [id number] [place] [address] January, [facility] [address] [place] [address] January, Mood disorder 296.90 and Anxiety 300.00 [facility] [address], [place] [address] January, [facility] [address] [place] [address] Dec, Headache 784.0 ; Other chronic pain 338.29 and Cervicalgia 723.1 [facility] [address], [place] [address] Dec, [facility] [address], [place] [address] Dec, [facility] [address], [place] [address] Nov, [facility] [address], [place] [address] Nov, [facility] [address], [place] [address] Oct, [facility] [id number] [place] [address] Oct, 2014 [facility] [place] [facility] [address] [id number] [place] [address] Oct, 2014 [facility] [place] [facility] [address] [id number] [place] [address] Oct, 2014 [facility] [place] [facility] [address] [id number] [place] [address] Oct, 2014 [facility] [place] [facility] [address] [id number] [place] [address] Oct, 2014 [facility] [place] [facility] [address] [id number] [place] [address] Oct, 2014 [facility] [place] [facility] [address] [facility] [id number] [place] [address] Oct, 2014 [facility] [place] [facility] [address] [facility] [id number] [place] [address] Oct, 2014 [facility] [place] [facility] [address] [facility] [id number] [place] [address] Oct, [facility] [place] [facility] [address] [facility] [id number] [place] [address] Oct, [facility] [place] [facility] [address] [facility] [id number] [place] [address] Oct, [facility] [place] [facility] [address] [facility] [id number], [place] [address] Sep, [facility] [place] [facility] [address] [id number] [place] [address] Sep, [facility] [place] [facility] [address] [id number], [place] [address] Sep, [facility] [place] [facility] [address] [facility] [id number], [place] [address] Sep, [facility] [place] [facility] [address] [facility] [id number], [place] [address] Sep, [facility] [place] [facility] [address] [id number] [place] [address] Sep, [facility] [place] [facility] [address] [id number] [place] [address] Sep, [facility] [place] [facility] [address] [id number] [place] [address] Sep, [facility] [place] [facility] [address] [id number] [place] [address] Sep, [facility] [place] [facility] [address] [id number] [place] [address] Sep, [facility] [place] [facility] [address] [id number] [place] [address] Sep, [facility] [place] [facility] [address] [id number] [place] [address] Sep, [facility] [place] [facility] [address] [id number] [place] [address] Sep, [facility] [place] [facility] [address] [id number] [place] [address] Sep, [facility] [place] [facility] [address] [id number] [place] [address] Aug, [facility] [place] [facility] [address] [id number] [place] [address] Aug, [facility] [place] [facility] [address] [id number] [place] [address] Aug, [facility] [place] [facility] [address] [id number] [place] [address] Aug, [facility] [place] [facility] [address] [id number] [place] [address] Aug, [facility] [place] [facility] [address] [id number] [place] [address] Aug, [facility] [place] [facility] [address] [id number] [place] [address] Aug, [facility] [place] [facility] [address] [id number] [place] [address] Aug, [facility] [place] [facility] [address] [id number] [place] [address] Aug, [facility] [place] [facility] [address] [id number] [place] [address] Aug, [facility] [place] [facility] [address] [id number] [place] [address] Aug, [facility] [place] [facility] [address] [id number] [place] [address] Aug, [facility] [place] [facility] [address] [id number] [place] [address] Aug, [facility] [place] [facility] [address] [id number] [place] [address] Jul, [facility] [place] [facility] [address] [id number] [place] [address] Jul, [facility] [place] [facility] [address] [id number] [place] [address] Feb, [facility] [place] [facility] [address] [id number] [place] [address] Feb, [facility] [place] [facility] [address] [id number] [place] [address] January, [facility] [place] [facility] [address] [id number] [place] [address] January, [facility] [place] [facility] [address] [id number] [place] [address] January, [facility] [place] [facility] [address] [id number] [place] [address] January, [facility] [place] [facility] [address] [id number] [place] [address] Nov, [facility] [place] [facility] [address] [id number] [place] [address] Nov, [facility] [place] [facility] [address] [id number] [place] [address] Nov, [facility] [place] [facility] [address] [id number] [place] [address] Nov, [facility] [place] [facility] [address] [id number] [place] [address] Oct, [facility] [place] [facility] [address] [id number] [place] [address] Oct, [facility] [place] [facility] [address] [id number] [place] [address] Sep, [facility] [place] [facility] [address] [id number] [place] [address] Sep, [facility] [place] [facility] [address] [id number] [place] [address] Sep, [facility] [place] [facility] [address] [id number] [place] [address] Sep, [facility] [place] [facility] [address] [id number] [place] [address] Aug, [facility] [place] [facility] [address] [id number] [place] [address] Aug, [facility] [place] [facility] [address] [id number], [place] [address] Aug, [facility] [place] [facility] [address] [id number] [place] [address] Aug, [facility] [place] [facility] [address] [id number] [place] [address] Aug, [facility] [place] [facility] [address] [id number] [place] [address] Aug, [facility] [place] [facility] [address] [id number] [place] [address] Aug, [facility] [place] [facility] [address] [id number] [place] [address] Jul, [facility] [place] [facility] [address] [id number] [place] [address] Jul, [facility] [place] [facility] [address] [id number] [place] [address] Jul, [facility] [place] [facility] [address] [id number] [place] [address] Jul, [facility] [place] [facility] [address] [id number] [place] [address] Jul, [facility] [place] [facility] [address] [id number] [place] [address] Jul, [facility] [place] [facility] [address] [id number] [place] [address] Jul, [facility] [place] [facility] [address] [id number] [place] [address] Jun, [facility] [place] [facility] [address] [id number] [place] [address] Jun, [facility] [place] [facility] [address] [facility] [id number] [place] [address] Jun, [facility] [place] [facility] [address] [id number] [place] [address] Jun, [facility] [place] [facility] [address] [id number], [place] [address] 24 Jul, 2010 [facility] [place] [facility] [address] [id number] [place] [address] 16 Jul, 2010 [facility] [place] [facility] [address] [id number] [place] [address] Jul, [facility] [place] [facility] [address] [id number], [place] [address] Jul, [facility] [address] [id number] [address] Jun, [facility] [address] [id number], [place] [address] Jun, [facility] [id number], [place] [address] Jun, [facility] [id number], [place] [address] Jun, [facility] [id number], [place] [address] Jun, [facility] [id number] [address] Mar, [facility] [address] [id number], [place] [address] January, IMMUNIZATIONS No Known Immunizations SOCIAL HISTORY [...] History child Hospitalization History low blood pressure--via [facility] 12/2017
--- OUTSIDE RECORDS SUMMARY | 2019-04-09 01:32 | XMS REPORT ---
Author Author SHABANA DELGADO Organization [facility] Address [address] [place] [address] Care Team Providers Care Clock Maker Name Role Phone SANDY SHABANA Unavailable PROBLEMS Type Condition ICD9-CM Code CGO63-LA Code Onset Dates Condition Status SNOMED Code Problem Cervicalgia M54.2 Active 026176798 Problem COPD with acute exacerbation J44.1 Active 385971765 Problem Anxiety F41.9 Active 21017593 Problem Tobacco abuse Z72.0 Active 07801000 Problem Dyslipidemia E78.5 Active 969520019 Problem Chest pain R07.9 Active 86571951 Problem Nausea R11.0 Active 921204854 Problem Menopause Z78.0 Active 954865890 Problem Postmenopausal HRT (hormone replacement therapy) Z79.890 Active 54157073 Problem Chronic headaches R51 Active 279784844 Problem Hypertension I10 Active 74448929 Problem 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 Active 37075843 Problem Environmental allergies Z91.09 Active 296826981 Problem Insomnia G47.00 Active 529418370 Problem Hepatitis C B19.20 Active 18747695 Problem Depression F32.9 Active 65206819 Problem Chronic pain G89.29 Active 42682150 Problem GERD (gastroesophageal reflux disease) K21.9 Active 133045623 ALLERGIES No Information ENCOUNTERS Encounter Location Date Diagnosis [facility] [address] [facility] [id number] [id number] May, [facility] [address] [id number] [id number] May, Chronic pain G89.29 ; Tobacco abuse Z72.0 ; High risk medication use Z79.899 ; Dyslipidemia E78.5 ; Hepatitis C B19.20 ; Hypertension I10 ; Environmental allergies Z91.09 ; Anxiety F41.9 ; 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 and GERD (gastroesophageal reflux disease) K21.9 [facility] [address] [id number] Apr, Chronic pain G89.29 [facility] [address] [address] Mar, Costochondral separation, initial encounter S23.29XA and Injury of toe on left foot, initial encounter S99.922A [facility] [address] [id number] Mar, Chronic pain G89.29 [facility] [address] [address] Feb, Poison elda L23.[address] [id number] Feb, Chronic pain G89.29 [place] [address] [address] Feb, Bronchitis J40 [facility] [address] [place] [id number] [place] [id number] Feb, [address] [id number] Feb, Chronic pain G89.[address] [id number] January, Vaginal discharge N89.8 ; Increased urinary frequency R35.0 ; Acute cystitis with hematuria N30.01 ; Other specified bacterial agents as the cause of diseases classified elsewhere B96.89 and Acute vaginitis N76.0 [facility] [address] [place] [id number] [place] [id number] January, Chronic pain G89.29 and Candidiasis B37.9 [facility] [address] [address] January, [facility] [address] [address] Dec, Acute frontal sinusitis, recurrence not specified J01.10 and Cough R05 [place] [address] [address] [id number] Dec, [facility] [address] [place] [id number] Nov, [facility] [address] [place] [id number] [place] [address] Nov, Bronchitis J40 [address] [id number] [id number] Nov, [facility] [address] [place] [id number] [place] [address] Oct, COPD with acute exacerbation J44.1 [place] [id number] [place] [id number] Oct, Chronic pain G89.29 [place] [id number] [place] [id number] Oct, [place] [id number] [place] [id number] Sep, Chronic pain G89.29 ; Depression F32.9 ; Anxiety F41.9 ; 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 and Flu-like symptoms R68.89 [facility] [address] [address] [id number] [place] [address] Aug, Chronic pain G89.29 ; Open bite of other finger without damage to nail, initial encounter S61.258A and Bitten by dog, initial encounter W54.0XXA [facility] [address] [place] [id number] [place] [address] Jul, Menopause Z78.0 ; Ankle swelling, unspecified laterality M25.473 ; Chronic pain G89.29 and Tobacco abuse Z72.0 [facility] [address] [place] [id number] [place] [address] Jun, [facility] [address] [place] [id number] [place] [address] Jun, Chronic pain G89.29 [facility] [address] [place] [id number] [place] [address] 25 May, 2017 Dysuria R30.0 ; Dehydration E86.0 and Hypertension I10 [place] [address] [place] [id number] [place] [address] 19 May, 2017 Menopause Z78.0 ; Depression F32.9 ; Chronic pain G89.29 ; Environmental allergies Z91.09 ; 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 and Encounter for immunization Z23 [facility] [address] [place] [id number] [place] [address] 18 May, 2017 Chronic pain G89.29 [place] [address] [address] Apr, Chronic pain G89.29 [place] [address] [place] [id number] [place] [address] Apr, Routine gynecological examination Z01.419 [place] [address] [place] [id number] [place] [address] Mar, Chronic pain G89.29 [facility] [address] [address] Feb, [facility] [address] [place] [id number] [place] [address] Feb, Chronic pain G89.29 [place] [address] [place] [id number] [place] [address] Feb, [facility] [address] [place] [id number] [place] [address] January, Chronic pain G89.29 [facility] [address] [place] [id number] [place] [address] January, Routine gynecological examination Z01.419 and Breast cancer screening Z12.39 [facility] [address] [place] [id number] [place] [address] January, Chronic pain G89.29 [place] [address] [place] [id number] [place] [address] Dec, Postmenopausal HRT (hormone replacement therapy) Z79.890 [place] [address] [place] [id number] [place] [address] Dec, [place] [address] [place] [id number] [place] [address] Nov, Chronic pain G89.29 [place] [address] [address] 30 Nov, 2016 Chronic headaches R51 ; [...] finger, with routine healing, subsequent encounter S62.639D [place] [address] [place] [id number] [place] [address] 15 Nov, 2016 [place] [address] [place] [id number] [place] [address] Nov, [place] [address] [place] [id number] [place] [address] Nov, [place] [address] [place] [id number] [place] [address] Nov, Hypertension I10 [place] [address] [place] [id number] [place] [address] Nov, [place] [address] [address] Nov, [place] [address] [place] [id number] [place] [address] Oct, Anxiety F41.9 [place] [address] [address] Oct, [facility] [address] [address] Oct, Acute upper respiratory infection, unspecified J06.9 and Other viral agents as the cause of diseases classified elsewhere B97.89 [facility] [address] [place] [id number] [place] [address] Oct, [facility] [address] [place] [id number] [place] [address] Oct, Right acute serous otitis media, recurrence not specified H65.01 and Pharyngitis, unspecified etiology J02.9 [facility] [address] [place] [id number] [place] [address] Sep, [facility] [address] [place] [id number] [place] [address] Aug, Environmental allergies Z91.09 [facility] [address] [place] [id number] [place] [address] Aug, [facility] [address] [place] [id number] [place] [address] Jul, Atypical nevi D22.9 [facility] [address] [place] [id number] [place] [address] Jul, [facility] [id number] [place] [address] Jul, [facility] [address] [place] [id number] [place] [address] Jul, [facility] [address] [place] [id number] [place] [address] Jun, [facility] [address] [place] [id number] [place] [address] 23 May, 2016 [facility] [id number] [place] [address] 13 May, 2016 [facility] [address] [place] [id number] [place] [address] May, [facility] [address] [address] Apr, [facility] [address] [place] [id number] [place] [address] Apr, Chronic headaches R51 ; GERD (gastroesophageal reflux disease) K21.9 ; Hypertension I10 ; 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 ; Anxiety F41.9 ; COPD with acute exacerbation J44.1 ; Environmental allergies Z91.09 ; Depression F32.9 and Chronic pain G89.29 [place] [address] [address] Feb, Chronic headaches R51 and Chronic pain G89.29 [place] [address] [place] [id number] [place] [address] January, Chronic pain G89.29 and Anxiety F41.9 [place] [address] [place] [id number] [place] [address] January, Depression F32.9 and Hypertension I10 [place] [address] [place] [id number] [place] [address] January, Chronic pain G89.29 [place] [address] [place] [id number] [place] [address] Dec, [place] [address] [place] [id number] [place] [address] Dec, [place] [address] [place] [id number] [place] [address] Dec, Chronic headaches R51 ; Chronic pain G89.29 ; Environmental allergies Z91.09 ; GERD (gastroesophageal reflux disease) K21.9 ; Insomnia G47.00 ; Hypertension I10 and COPD with acute exacerbation J44.1 [place] [address] [place] [id number] [place] [address] Dec, [place] [address] [place] [id number] [place] [address] Dec, Chest pain R07.9 ; GERD (gastroesophageal reflux disease) K21.9 and Nausea R11.0 [place] [address] [address] Nov, [place] [address] [address] 24 Oct, 2015 COPD with acute exacerbation J44.1 ; Chronic headaches R51 ; GERD (gastroesophageal reflux disease) K21.9 ; Insomnia G47.00 ; Hypertension I10 ; Depression F32.9 and Anxiety F41.[address] [address] Oct, [address] [address] Oct, [address] [address] Oct, [address] [address] Oct, [address] [address] Oct, Flu-like symptoms R68.89 and COPD with acute exacerbation J44.[address] [address] Oct, [address] [address] 11 Oct, 2015 Left shoulder pain M25.512 ; Chronic headaches R51 ; Environmental allergies Z91.09 ; GERD (gastroesophageal reflux disease) K21.9 ; Insomnia G47.00 ; Hypertension I10 ; Depression F32.9 and COPD (chronic obstructive pulmonary disease) with emphysema J43.[address] [address] Sep, [place] [address] [address] Sep, COPD (chronic obstructive pulmonary disease) J44.9 [place] [address] [address] Sep, Bronchitis J40 [address] [address] Aug, Cervicalgia 723.1 ; Chronic hepatitis C without mention of hepatic coma 070.54 ; Essential hypertension 401.9 ; Chronic headaches R51 ; Environmental allergies Z91.09 ; GERD (gastroesophageal reflux disease) K21.9 ; Insomnia G47.00 ; Depression F32.9 and COPD (chronic obstructive pulmonary disease) J44.9 [place] [address] [address] Jul, Essential hypertension 401.9 ; Hypertension I10 ; Depression F32.9 ; Anxiety F41.9 ; Chronic headaches R51 and Cervicalgia M54.[address] [address] Jul, Essential hypertension 401.9 and Anxiety F41.[address] [address] Jul, [address] [address] Jul, [address] [address] Jul, Insomnia G47.00 ; GERD (gastroesophageal reflux disease) K21.9 ; Essential hypertension 401.9 ; Bipolar I disorder, most recent episode (or current) depressed, moderate 296.52 ; Hepatitis C B19.20 ; Depression F32.9 ; Hypertension I10 ; 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 ; Chronic headaches R51 and Chronic pain G89.[address] [address] Jun, [address] [place] [address] Jun, Chronic headaches R51 ; Environmental allergies Z91.09 ; GERD (gastroesophageal reflux disease) K21.9 ; Insomnia G47.00 ; Hepatitis C B19.20 ; Hypertension I10 ; Depression F32.9 ; 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 and Chronic pain G89.[address] [address] Jun, [place] [id number] [place] [address] Jun, Vision changes H53.9 [place] [id number] [place] [address] Apr, [address] [address] Apr, Bipolar I disorder, most recent episode (or current) depressed, moderate 296.52 ; Other chronic pain 338.29 ; Chronic hepatitis C without mention of hepatic coma 070.54 ; Essential hypertension 401.9 ; Environmental allergies V15.09 and GERD (gastroesophageal reflux disease) 530.81 [place] [id number] [place] [address] Mar, [place] [id number] [place] [address] Mar, [place] [id number] [place] [address] Mar, [place] [id number] [place] [address] Mar, [place] [id number] [place] [address] Mar, [place] [id number] [place] [address] Feb, Routine gynecological examination V72.31 ; Breast cancer screening V76.10 and Tobacco abuse 305.1 [facility] [address], [place] [address] Feb, [facility] [address], [place] [address] January, [facility] [address], [place] [address] January, [facility] [address] [place] [id number] [place] [address] January, [facility] [address], [place] [address] January, [facility] [address] [place] [id number] [place] [address] January, Mood disorder 296.90 and Anxiety 300.00 [facility] [address] [place] [address] January, [facility] [address], [place] [address] Dec, Headache 784.0 ; Other chronic pain 338.29 and Cervicalgia 723.1 [facility] [address], [place] [address] Dec, [facility] [address], [place] [address] Dec, [facility] [address], [place] [address] Nov, [facility] [address], [place] [address] Nov, [facility] [address], [place] [address] Oct, [facility] [address], [place] [address] Oct, [facility] [address] [place] [id number] [place] [address] Oct, 2014 [facility] [place] [facility] [address] [id number] [place] [address] Oct, 2014 [facility] [place] [facility] [address] [id number] [place] [address] Oct, 2014 [facility] [place] [facility] [address] [id number] [place] [address] Oct, 2014 [facility] [place] [facility] [address] [id number] [place] [address] Oct, 2014 [facility] [place] [facility] [address] [id number] [place] [address] Oct, 2014 [facility] [place] [facility] [address] [facility] [id number] [place] [address] Oct, 2014 [facility] [place] [facility] [address] [facility] [id number] [place] [address] Oct, 2014 [facility] [place] [facility] [address] [facility] [id number] [place] [address] Oct, [facility] [place] [facility] [address] [facility] [id number] [place] [address] Oct, [facility] [place] [facility] [address] [facility] [id number] [place] [address] Sep, [facility] [place] [facility] [address] [id number], [place] [address] Sep, [facility] [place] [facility] [address] [id number] [place] [address] Sep, [facility] [place] [facility] [address] [id number] [place] [address] Sep, [facility] [place] [facility] [address] [facility] [address] [id number] [address] Sep, [facility] [place] [facility] [address] [facility] [address] [id number] [address] Sep, [facility] [place] [facility] [address] [id number] [place] [address] Sep, [facility] [place] [facility] [address] [id number] [place] [address] Sep, [facility] [place] [facility] [address] [id number] [place] [address] Sep, [facility] [place] [facility] [address] [id number] [place] [address] Sep, [facility] [place] [facility] [address] [id number] [place] [address] Sep, [facility] [place] [facility] [address] [id number] [place] [address] Sep, [facility] [place] [facility] [address] [id number] [place] [address] Sep, [facility] [place] [facility] [address] [id number] [place] [address] Sep, [facility] [place] [facility] [address] [id number] [place] [address] Aug, [facility] [place] [facility] [address] [id number] [place] [address] Aug, [facility] [place] [facility] [address] [id number] [place] [address] Aug, [facility] [place] [facility] [address] [id number] [place] [address] Aug, [facility] [place] [facility] [address] [id number] [place] [address] Aug, [facility] [place] [facility] [address] [id number] [place] [address] Aug, [facility] [place] [facility] [address] [id number] [place] [address] Aug, [facility] [place] [facility] [address] [id number] [place] [address] Aug, [facility] [address] [id number] [place] [address] Aug, [facility] [place] [facility] [address] [id number] [place] [address] Aug, [facility] [place] [facility] [address] [id number] [place] [address] Aug, [facility] [place] [facility] [address] [id number] [place] [address] Aug, [facility] [place] [facility] [address] [id number] [place] [address] Aug, [facility] [place] [facility] [address] [id number] [place] [address] Jul, [facility] [place] [facility] [address] [id number] [place] [address] Jul, [facility] [address] [id number] [place] [address] Feb, [facility] [place] [facility] [address] [id number] [place] [address] Feb, [facility] [address] [id number] [place] [address] January, [facility] [place] [facility] [address] [id number] [place] [address] January, [facility] [place] [facility] [address] [id number] [place] [address] January, [facility] [place] [facility] [address] [id number] [place] [address] January, [facility] [place] [facility] [address] [id number] [place] [address] Nov, [facility] [place] [facility] [address] [id number] [place] [address] Nov, [facility] [address] [id number] [place] [address] Nov, [facility] [place] [facility] [address] [id number] [place] [address] Nov, [facility] [place] [facility] [address] [id number] [place] [address] Oct, [facility] [place] [facility] [address] [id number] [place] [address] Oct, [facility] [place] [facility] [address] [id number] [place] [address] Sep, [facility] [place] [facility] [address] [id number] [place] [address] Sep, [facility] [place] [facility] [address] [id number] [place] [address] Sep, [facility] [place] [facility] [address] [id number] [place] [address] Sep, [facility] [place] [facility] [address] [id number] [place] [address] Aug, [facility] [place] [facility] [address] [id number] [place] [address] Aug, [facility] [place] [facility] [address] [id number], [place] [address] Aug, [facility] [place] [facility] [address] [id number], [place] [address] Aug, [facility] [place] [facility] [address] [id number] [place] [address] Aug, [facility] [place] [facility] [address] [id number] [place] [address] Aug, [facility] [place] [facility] [address] [id number] [place] [address] Aug, [facility] [place] [facility] [address] [id number] [place] [address] 29 Jul, 2013 [facility] [place] [facility] [address] [id number] [place] [address] 29 Jul, 2013 [facility] [place] [facility] [address] [id number] [place] [address] Jul, [facility] [place] [facility] [address] [id number] [place] [address] Jul, [facility] [place] [facility] [address] [id number] [place] [address] Jul, [facility] [place] [facility] [address] [id number] [place] [address] Jul, [facility] [place] [facility] [address] [id number] [place] [address] Jul, [facility] [place] [facility] [address] [id number] [place] [address] 31 Jun, 2013 [facility] [place] [facility] [address] [id number] [place] [address] 30 Jun, 2013 [facility] [place] [facility] [address] [id number] [place] [address] 30 Jun, 2013 [facility] [place] [facility] [address] [id number] [place] [address] Jun, [facility] [place] [facility] [address] [id number] [place] [address] 24 Jul, 2010 [facility] [place] [facility] [address] [id number] [place] [address] 16 Jul, 2010 [facility] [place] [facility] [address] [id number] [place] [address] 10 Jul, 2010 [facility] [place] [facility] [address] [id number] [place] [address] Jul, [facility] [place] [facility] [address] [id number], [place] [address] 26 Jun, 2010 [facility] [address] [facility] [address] [id number], [place] [address] Jun, [facility] [address] [id number], [place] [address] Jun, [facility] [address] [id number], [place] [address] Jun, [facility] [address] [id number], [place] [address] Jun, [facility] [address] [facility] [address] [id number], [place] [address] Mar, [facility] [address] [id number], [place] [address] January, IMMUNIZATIONS No Known Immunizations SOCIAL HISTORY Never Assessed REASON FOR VISIT Controlled Med Refill PLAN OF CARE VITAL SIGNS MEDICATIONS Medication Instructions Dosage Frequency Start Date End Date Duration Status Oxycodone-Acetaminophen 5-325 MG Orally 3 times a day 1 tablet as needed 8h Apr, 30 days Active RESULTS No Results PROCEDURES No [...] History child Hospitalization History low blood pressure--via [facility] 12/2017
--- OUTSIDE RECORDS SUMMARY | 2019-04-09 01:33 | XMS REPORT ---
Author Author SHABANA DELGADO Organization [facility] Address [address] [place] [address] Care Team Providers Care Transition Coach Name Role Phone WILMABRITNEYSHABANA Mims Unavailable PROBLEMS Type Condition ICD9-CM Code SVI18-WE Code Onset Dates Condition Status SNOMED Code Problem Hypertension I10 Active 94778515 Problem Cervicalgia M54.2 Active 794840758 Problem COPD (chronic obstructive pulmonary disease) with emphysema J43.9 Active 09872897 Problem Menopause Z78.0 Active 288506370 Problem Postmenopausal HRT (hormone replacement therapy) Z79.890 Active 32323310 Problem COPD with acute exacerbation J44.1 Active 650057116 Problem Anxiety F41.9 Active 13535494 Problem Chest pain R07.9 Active 93796014 Problem Nausea R11.0 Active 794781488 Problem Chronic headaches R51 Active 215149756 Problem Environmental allergies Z91.09 Active 726039543 Problem Insomnia G47.00 Active 677347681 Problem Hepatitis C B19.20 Active 85428267 Problem Depression F32.9 Active 95101224 Problem Chronic pain G89.29 Active 20713714 Problem GERD (gastroesophageal reflux disease) K21.9 Active 266037032 ALLERGIES No Information ENCOUNTERS Encounter Location Date Diagnosis [facility] [id number] [place] [address] [id number] Apr, Chronic pain G89.29 [facility] [id number] [place] [address] Mar, Costochondral separation, initial encounter S23.29XA and Injury of toe on left foot, initial encounter S99.922A [facility] [id number] [place] [address] [id number] Mar, Chronic pain G89.29 [facility] [id number] [place] [address] Feb, Poison elda L23.7 [id number] [place] [address] [id number] Feb, Chronic pain G89.29 [facility] [id number] [place] [address] Feb, Bronchitis J40 [id number] [place] [address] [id number] Feb, [place] [id number] [place] [address] [id number] Feb, Chronic pain G89.29 [place] [id number] [place] [address] [id number] January, Vaginal discharge N89.8 ; Increased urinary frequency R35.0 ; Acute cystitis with hematuria N30.01 ; Other specified bacterial agents as the cause of diseases classified elsewhere B96.89 and Acute vaginitis N76.0 [place] [id number] [place] [address] [id number] January, Chronic pain G89.29 and Candidiasis B37.9 [facility] [address] [place] [id number] [place] [address] January, [facility] [place] [id number] [place] [address] Dec, Acute frontal sinusitis, recurrence not specified J01.10 and Cough R05 [place] [id number] [place] [address] [id number] Dec, [id number] [place] [address] [id number] Nov, [facility] [address] [place] [address] Nov, Bronchitis J40 [address] [id number] [id number] Nov, [facility] [address] [place] [address] Oct, COPD with acute exacerbation J44.1 [facility] [address] 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 and Flu-like symptoms R68.89 [facility] [id number] [address] Aug, Chronic pain G89.29 ; Open bite of other finger without damage to nail, initial encounter S61.258A and Bitten by dog, initial encounter W54.0XXA [facility] [id number] [place] [address] Jul, Menopause Z78.0 ; Ankle swelling, unspecified laterality M25.473 ; Chronic pain G89.29 and Tobacco abuse Z72.0 [facility] [id number] [place] [address] Jun, [facility] [address] [address] Jun, Chronic pain G89.29 [facility] [id number] [place] [address] May, Dysuria R30.0 ; Dehydration E86.0 and Hypertension I10 [place] [address] [address] 19 May, 2017 Menopause Z78.0 ; Depression F32.9 ; Chronic pain G89.29 ; Environmental allergies Z91.09 ; 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 and Encounter for immunization Z23 [place] [id number] [place] [address] 18 May, 2017 Chronic pain G89.29 [facility] [address]005[address] [address] Apr, Chronic pain G89.29 [facility] [address] [place] [address] Apr, Routine gynecological examination Z01.419 [facility] [address] [address] Mar, Chronic pain G89.29 [facility] [id number] [place] [address] Feb, [facility] [id number] [place] [address] Feb, Chronic pain G89.29 [facility] [address] [place] [address] Feb, [facility] [id number] [place] [address] January, Chronic pain G89.29 [facility] [address] [place] [address] January, Routine gynecological examination Z01.419 and Breast cancer screening Z12.39 [facility] [address] [address] January, Chronic pain G89.29 [facility] [address], [place] [address] Dec, Postmenopausal HRT (hormone replacement therapy) Z79.890 [facility] [address] [address] Dec, [facility] [id number] [place] [address] Nov, Chronic pain G89.29 [facility] [address] [address] Nov, Chronic headaches R51 ; GERD (gastroesophageal reflux disease) K21.9 ; Hypertension I10 ; 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 ; Hepatitis C B19.20 ; Chronic pain G89.29 ; Pain of right thumb M79.644 ; Insomnia G47.00 ; Depression F32.9 ; Environmental allergies Z91.09 and Closed fracture of tuft of distal phalanx of finger, with routine healing, subsequent encounter S62.639D [place] [address] [address] Nov, [place] [address] [address] Nov, [place] [address] [address] Nov, [place] [address] [address] Nov, Hypertension I10 [place] [address] [address] Nov, [place] [address] [address] Nov, [place] [address] [address] Oct, Anxiety F41.9 [place] [address] [address] Oct, [place] [address] [address] Oct, Acute upper respiratory infection, unspecified J06.9 and Other viral agents as the cause of diseases classified elsewhere B97.89 [place] [address] [address] Oct, [place] [address] [address] Oct, Right acute serous otitis media, recurrence not specified H65.01 and Pharyngitis, unspecified etiology J02.9 [facility] [address] [address] Sep, [facility] [id number] [place] [address] Aug, Environmental allergies Z91.09 [facility] [id number] [address] Aug, [facility] [id number] [place] [address] Jul, Atypical nevi D22.9 [facility] [id number] [place] [address] Jul, [facility] [id number] [place] [address] Jul, [facility] [id number] [place] [address] Jul, [facility] [address] [address] Jun, [facility] [id number] [place] [address] May, [facility] [address], [place] [address] May, [facility] [address] [place] [address] May, [facility] [address] [address] Apr, [facility] [address], [place] [address] Apr, Chronic headaches R51 ; GERD (gastroesophageal reflux disease) K21.9 ; Hypertension I10 ; 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 ; Anxiety F41.9 ; COPD with acute exacerbation J44.1 ; Environmental allergies Z91.09 ; Depression F32.9 and Chronic pain G89.29 [facility] [id number] [place] [address] Feb, Chronic headaches R51 and Chronic pain G89.29 [place] [id number] [place] [address] January, Chronic pain G89.29 and Anxiety F41.9 [place] [address] [address] January, Depression F32.9 and Hypertension I10 [place] [address] [address] January, Chronic pain G89.29 [place] [address] [address] Dec, [place] [id number] [place] [address] Dec, [place] [address] [address] Dec, Chronic headaches R51 ; Chronic pain G89.29 ; Environmental allergies Z91.09 ; GERD (gastroesophageal reflux disease) K21.9 ; Insomnia G47.00 ; Hypertension I10 and COPD with acute exacerbation J44.1 [place] [id number] [place] [address] Dec, [place] [id number] [place] [address] Dec, Chest pain R07.9 ; GERD (gastroesophageal reflux disease) K21.9 and Nausea R11.0 [place] [id number] [place] [address] Nov, [place] [address] [address] Oct, COPD with acute exacerbation J44.1 ; Chronic headaches R51 ; GERD (gastroesophageal reflux disease) K21.9 ; Insomnia G47.00 ; Hypertension I10 ; Depression F32.9 and Anxiety F41.9 [place] [id number] [place] [address] Oct, [place] [id number] [place] [address] Oct, [place] [id number] [place] [address] Oct, [place] [address] [address] Oct, [address] [address] Oct, Flu-like symptoms R68.89 and COPD with acute exacerbation J44.[address] [address] Oct, [address] [address] Oct, Left shoulder pain M25.512 ; Chronic headaches R51 ; Environmental allergies Z91.09 ; GERD (gastroesophageal reflux disease) K21.9 ; Insomnia G47.00 ; Hypertension I10 ; Depression F32.9 and 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 [place] [id number] [place] [address] Sep, [place] [id number] [place] [address] Sep, COPD (chronic obstructive pulmonary disease) J44.9 [place] [id number] [place] [address] Sep, Bronchitis J40 [place] [id number] [place] [address] Aug, Cervicalgia 723.1 ; Chronic hepatitis C without mention of hepatic coma 070.54 ; Essential hypertension 401.9 ; Chronic headaches R51 ; Environmental allergies Z91.09 ; GERD (gastroesophageal reflux disease) K21.9 ; Insomnia G47.00 ; Depression F32.9 and COPD (chronic obstructive pulmonary disease) J44.[address] [address] Jul, Essential hypertension 401.9 ; Hypertension I10 ; Depression F32.9 ; Anxiety F41.9 ; Chronic headaches R51 and Cervicalgia M54.[address] [address] Jul, Essential hypertension 401.9 and Anxiety F41.[address] [address] Jul, [address] [address] Jul, [address] [address] Jul, Insomnia G47.00 ; GERD (gastroesophageal reflux disease) K21.9 ; Essential hypertension 401.9 ; Bipolar I disorder, most recent episode (or current) depressed, moderate 296.52 ; Hepatitis C B19.20 ; Depression F32.9 ; Hypertension I10 ; 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 ; Chronic headaches R51 and Chronic pain G89.[address] [address] Jun, [address] [address] Jun, Chronic headaches R51 ; Environmental allergies Z91.09 ; GERD (gastroesophageal reflux disease) K21.9 ; Insomnia G47.00 ; Hepatitis C B19.20 ; Hypertension I10 ; Depression F32.9 ; 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 and Chronic pain G89.[address] [address] Jun, [address] [address] Jun, Vision changes H53.9 [facility] [address] [place] [address] Apr, [facility] [id number] [place] [address] Apr, Bipolar I disorder, most recent episode (or current) depressed, moderate 296.52 ; Other chronic pain 338.29 ; Chronic hepatitis C without mention of hepatic coma 070.54 ; Essential hypertension 401.9 ; Environmental allergies V15.09 and GERD (gastroesophageal reflux disease) 530.81 [facility] [id number] [place] [address] Mar, [facility] [id number] [place] [address] Mar, [facility] [id number] [place] [address] Mar, [facility] [id number] [place] [address] Mar, [facility] [id number] [place] [address] Mar, [facility] [id number] [place] [address] Feb, Routine gynecological examination V72.31 ; Breast cancer screening V76.10 and Tobacco abuse 305.1 [facility] [address], [place] [address] Feb, [facility] [address] [place] [address] January, [facility] [id number] [place] [address] January, [facility] [address] [place] [address] January, [facility] [id number] [address] January, [facility] [address] [place] [address] January, Mood disorder 296.90 and Anxiety 300.00 [facility] [id number] [place] [address] January, [facility] [id number] [place] [address] Dec, Headache 784.0 ; Other chronic pain 338.29 and Cervicalgia 723.1 [facility] [id number] [place] [address] Dec, [facility] [id number] [place] [address] Dec, [facility] [id number] [place] [address] Nov, [facility] [id number] [place] [address] Nov, [facility] [id number] [place] [address] Oct, [facility] [address], [place] [address] Oct, [facility] [address], [place] [address] Oct, [facility] [address], [place] [address] Oct, [facility] [address] [place] [address] Oct, [facility] [address], [place] [address] Oct, [facility] [address], [place] [address] Oct, [facility] [place] [facility] [address] [id number] [place] [address] Oct, [facility] [place] [facility] [address] [id number] [place] [address] Oct, [facility] [place] [facility] [address] [id number] [place] [address] Oct, [facility] [place] [facility] [address] [id number] [place] [address] Oct, [facility] [place] [facility] [address] [id number] [place] [address] Oct, [facility] [place] [facility] [address] [id number] [place] [address] Sep, [facility] [place] [facility] [address] [id number] [place] [address] Sep, [facility] [place] [facility] [address] [id number] [place] [address] Sep, [facility] [place] [facility] [address] [id number] [place] [address] Sep, [facility] [place] [facility] [address] [id number] [place] [address] Sep, [facility] [place] [facility] [address] [id number] [place] [address] Sep, [facility] [place] [facility] [address] [id number] [address] Sep, [facility] [place] [facility] [address] [id number] [place] [address] Sep, [facility] [place] [facility] [address] [id number] [place] [address] Sep, [facility] [place] [facility] [address] [id number] [place] [address] 09 Sep, 2014 [facility] [place] [facility] [address] [id number] [place] [address] Sep, [facility] [place] [facility] [address] [id number] [place] [address] Sep, [facility] [place] [facility] [address] [id number] [place] [address] Sep, [facility] [place] [facility] [address] [id number] [place] [address] Sep, [facility] [place] [facility] [address] [id number] [place] [address] Aug, [facility] [place] [facility] [address] [id number] [place] [address] Aug, [facility] [place] [facility] [address] [id number] [place] [address] Aug, [facility] [place] [facility] [address] [id number] [place] [address] Aug, [facility] [place] [facility] [address] [id number] [place] [address] Aug, [facility] [place] [facility] [address] [id number] [place] [address] Aug, [facility] [place] [facility] [address] [id number] [place] [address] Aug, [facility] [place] [facility] [address] [id number] [place] [address] Aug, [facility] [place] [facility] [address] [id number] [place] [address] Aug, [facility] [place] [facility] [address] [id number] [place] [address] Aug, [facility] [place] [facility] [address] [id number] [place] [address] Aug, [facility] [place] [facility] [address] [id number] [place] [address] Aug, [facility] [place] [facility] [address] [id number] [place] [address] Aug, [facility] [place] [facility] [address] [id number] [place] [address] Jul, [facility] [place] [facility] [address] [id number] [place] [address] Jul, [facility] [place] [facility] [address] [id number] [place] [address] Feb, [facility] [place] [facility] [address] [id number] [place] [address] Feb, [facility] [place] [facility] [address] [id number] [place] [address] January, [facility] [place] [facility] [address] [id number] [place] [address] January, [facility] [place] [facility] [address] [id number] [place] [address] January, [facility] [place] [facility] [address] [id number] [place] [address] January, [facility] [place] [facility] [address] [id number] [place] [address] Nov, [facility] [place] [facility] [address] [id number] [place] [address] Nov, [facility] [place] [facility] [address] [id number] [place] [address] Nov, [facility] [place] [facility] [address] [id number] [place] [address] Nov, [facility] [place] [facility] [address] [id number] [place] [address] Oct, [facility] [place] [facility] [address] [id number] [place] [address] Oct, [facility] [place] [facility] [address] [id number] [place] [address] Sep, [facility] [place] [facility] [address] [id number] [place] [address] Sep, [facility] [place] [facility] [address] [id number] [place] [address] Sep, [facility] [place] [facility] [address] [id number] [place] [address] Sep, [facility] [place] [facility] [address] [id number] [place] [address] Aug, [facility] [place] [facility] [address] [id number] [place] [address] Aug, [facility] [place] [facility] [address] [id number] [place] [address] Aug, [facility] [place] [facility] [address] [id number] [place] [address] Aug, [facility] [place] [facility] [address] [id number] [place] [address] Aug, [facility] [place] [facility] [address] [id number] [place] [address] Aug, [facility] [place] [facility] [address] [id number] [place] [address] Aug, [facility] [place] [facility] [address] [id number] [place] [address] Jul, [facility] [place] [facility] [address] [id number] [place] [address] Jul, [facility] [place] [facility] [address] [id number] [place] [address] Jul, [facility] [place] [facility] [address] [id number] [place] [address] Jul, [facility] [place] [facility] [address] [id number] [place] [address] Jul, [facility] [place] [facility] [address] [id number] [place] [address] 12 Jul, 2013 [facility] [place] [facility] [address] [id number] [place] [address] 08 Jul, 2013 [facility] [place] [facility] [address] [id number] [place] [address] 31 Jun, 2013 [facility] [place] [facility] [address] [id number] [place] [address] 30 Jun, 2013 [facility] [place] [facility] [address] [id number] [place] [address] 30 Jun, 2013 [facility] [place] [facility] [address] [id number] [place] [address] Jun, [facility] [place] [facility] [address] [id number] [place] [address] Jul, [facility] [place] [facility] [address] [id number] [place] [address] 16 Jul, 2010 [facility] [place] [facility] [address] [id number] [place] [address] Jul, [facility] [place] [facility] [address] [id number] [place] [address] Jul, [facility] [place] [facility] [address] [facility] [id number] [place] [address] 26 Jun, 2010 [facility] [place] [facility] [address] [id number] [place] [address] 31 Jun, 2009 [facility] [place] [facility] [address] [id number] [place] [address] 29 Jun, 2009 [facility] [place] [facility] [address] [id number] [place] [address] 28 Jun, 2009 [facility] [place] [facility] [address] [id number] [place] [address] 15 Jun, 2009 [facility] [place] [facility] [address] [id number] [place] [address] Mar, [facility] [address] [facility] [id number] [place] [address] January, IMMUNIZATIONS No Known Immunizations SOCIAL HISTORY Never Assessed REASON FOR VISIT refill for narcotic PLAN OF CARE VITAL SIGNS MEDICATIONS Medication Instructions Dosage Frequency Start Date End Date Duration Status Oxycodone-Acetaminophen 5-325 MG Orally 3 times a day 1 tablet as needed 8h Mar, 30 days Active RESULTS No Results PROCEDURES [...] History child Hospitalization History low blood pressure--via [facility] 12/2017
--- OUTSIDE RECORDS SUMMARY | 2019-04-09 01:33 | XMS REPORT ---
Author Author SHABANA DELGADO Organization [facility] [place] Address [address] [place] [address] Care Team Providers Care Buckle Coverer Name Role Phone WILMABRITNEYSHABANA Mims Unavailable PROBLEMS Type Condition ICD9-CM Code NLR92-MT Code Onset Dates Condition Status SNOMED Code Problem Hypertension I10 Active 86925634 Problem Cervicalgia M54.2 Active 257511543 Problem COPD (chronic obstructive pulmonary disease) with emphysema J43.9 Active 32128561 Problem Menopause Z78.0 Active 282744698 Problem Postmenopausal HRT (hormone replacement therapy) Z79.890 Active 53735538 Problem COPD with acute exacerbation J44.1 Active 727682228 Problem Anxiety F41.9 Active 78281061 Problem Chest pain R07.9 Active 36089170 Problem Nausea R11.0 Active 624820471 Problem Chronic headaches R51 Active 394114297 Problem Environmental allergies Z91.09 Active 936259278 Problem Insomnia G47.00 Active 076982087 Problem Hepatitis C B19.20 Active 03530677 Problem Depression F32.9 Active 77108221 Problem Chronic pain G89.29 Active 86044862 Problem GERD (gastroesophageal reflux disease) K21.9 Active 738257725 ALLERGIES No Information ENCOUNTERS Encounter Location Date Diagnosis [facility] [id number] [place] [address] [id number] Apr, Chronic pain G89.29 [facility] [place] [id number] [place] [address] Mar, Costochondral separation, initial encounter S23.29XA and Injury of toe on left foot, initial encounter S99.922A [facility] [id number] [place] [address] [id number] Mar, Chronic pain G89.29 [facility] [place] [id number] [place] [address] Feb, Poison elda L23.7 [address] [place] [address] [id number] Feb, Chronic pain G89.29 [facility] [place] [id number] [place] [address] Feb, Bronchitis J40 [address] [place] [address] [id number] Feb, [place] [id number] [place] [address] [id number] Feb, Chronic pain G89.29 [place] [id number] [place] [address] [id number] January, Vaginal discharge N89.8 ; Increased urinary frequency R35.0 ; Acute cystitis with hematuria N30.01 ; Other specified bacterial agents as the cause of diseases classified elsewhere B96.89 and Acute vaginitis N76.0 [place] [id number] [place] [address] [id number] January, Chronic pain G89.29 and Candidiasis B37.9 [facility] [place] [address] [place] [id number] [place] [address] January, [facility] [place] [id number] [place] [address] Dec, Acute frontal sinusitis, recurrence not specified J01.10 and Cough R05 [place] [id number] [place] [address] [id number] Dec, [address] [place] [address] [id number] Nov, [facility], [place] [address] [place] [address] Nov, Bronchitis J40 [address] [id number] [id number] Nov, [facility] [address] [place] [address] Oct, COPD with acute exacerbation J44.1 [facility] [address] [facility] [id number] [id number] 12 Oct, 2017 Chronic pain G89.29 [facility] [id number] [id number] 08 Oct, 2017 [facility] [address] [id number] [id number] Sep, Chronic pain G89.29 ; Depression F32.9 ; Anxiety F41.9 ; 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 and Flu-like symptoms R68.89 [facility] [id number] [place] [address] Aug, Chronic pain G89.29 ; Open bite of other finger without damage to nail, initial encounter S61.258A and Bitten by dog, initial encounter W54.0XXA [facility] [place] [id number] [place] [address] Jul, Menopause Z78.0 ; Ankle swelling, unspecified laterality M25.473 ; Chronic pain G89.29 and Tobacco abuse Z72.0 [facility] [id number] [place] [address] Jun, [facility] [place] [address] [address] Jun, Chronic pain G89.29 [facility] [id number] [place] [address] May, Dysuria R30.0 ; Dehydration E86.0 and Hypertension I10 [place] [address] [address] 19 May, 2017 Menopause Z78.0 ; Depression F32.9 ; Chronic pain G89.29 ; Environmental allergies Z91.09 ; 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 and Encounter for immunization Z23 [place] [id number] [place] [address] 18 May, 2017 Chronic pain G89.29 [facility] [place] [address] [address] Apr, Chronic pain G89.29 [facility] [place] [address] [place] [address] Apr, Routine gynecological examination Z01.419 [facility] [place] [address], [place] [address] Mar, Chronic pain G89.29 [facility] [place] [id number] [place] [address] Feb, [facility] [place] [id number] [place] [address] Feb, Chronic pain G89.29 [facility] [place] [address] [place] [address] Feb, [facility] [place] [id number] [place] [address] January, Chronic pain G89.29 [facility] [place] [address] [place] [address] January, Routine gynecological examination Z01.419 and Breast cancer screening Z12.39 [facility] [place] [address] [address] January, Chronic pain G89.29 [facility] [place] [address], [place] [address] Dec, Postmenopausal HRT (hormone replacement therapy) Z79.890 [facility] [place] [address], [place] [address] Dec, [facility] [place] [id number] [place] [address] Nov, Chronic pain G89.29 [facility] [place] [address], [place] [address] Nov, Chronic headaches R51 ; GERD (gastroesophageal reflux disease) K21.9 ; Hypertension I10 ; 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 ; Hepatitis C B19.20 ; Chronic pain G89.29 ; Pain of right thumb M79.644 ; Insomnia G47.00 ; Depression F32.9 ; Environmental allergies Z91.09 and Closed fracture of tuft of distal phalanx of finger, with routine healing, subsequent encounter S62.639D [place] [address] [address] Nov, [place] [address] [address] Nov, [place] [address] [address] Nov, [place] [address] [address] Nov, Hypertension I10 [place] [address] [address] Nov, [place] [address] [address] Nov, [place] [address] [address] Oct, Anxiety F41.9 [place] [address] [address] Oct, [place] [address] [address] Oct, Acute upper respiratory infection, unspecified J06.9 and Other viral agents as the cause of diseases classified elsewhere B97.89 [place] [address] [address] Oct, [place] [address] [address] Oct, Right acute serous otitis media, recurrence not specified H65.01 and Pharyngitis, unspecified etiology J02.9 [facility] [place] [address], [place] [address] Sep, [facility] [place] [id number] [place] [address] Aug, Environmental allergies Z91.09 [facility] [place] [id number], [place] [address] Aug, [facility] [place] [id number] [place] [address] Jul, Atypical nevi D22.9 [facility] [place] [id number] [place] [address] Jul, [facility] [place] [id number] [place] [address] Jul, [facility] [place] [id number] [place] [address] Jul, [facility] [place] [address], [place] [address] Jun, [facility] [place] [id number] [place] [address] May, [facility] [place] [address], [place] [address] May, [facility] [place] [address] [place] [address] May, [facility] [place] [address], [place] [address] Apr, [facility] [place] [address], [place] [address] Apr, Chronic headaches R51 ; GERD (gastroesophageal reflux disease) K21.9 ; Hypertension I10 ; 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 ; Anxiety F41.9 ; COPD with acute exacerbation J44.1 ; Environmental allergies Z91.09 ; Depression F32.9 and Chronic pain G89.29 [facility] [place] [id number] [place] [address] Feb, Chronic headaches R51 and Chronic pain G89.29 [place] [id number] [place] [address] January, Chronic pain G89.29 and Anxiety F41.9 [place] [address] [address] January, Depression F32.9 and Hypertension I10 [place] [id number] [place] [address] January, Chronic pain G89.29 [place] [address] [address] Dec, [place] [id number] [place] [address] Dec, [place] [address] [address] Dec, Chronic pain G89.29 ; Chronic headaches R51 ; Environmental allergies Z91.09 ; GERD (gastroesophageal reflux disease) K21.9 ; Insomnia G47.00 ; Hypertension I10 and COPD with acute exacerbation J44.1 [place] [id number] [place] [address] Dec, [place] [id number] [place] [address] Dec, Chest pain R07.9 ; GERD (gastroesophageal reflux disease) K21.9 and Nausea R11.0 [place] [id number] [place] [address] Nov, [place] [address] [address] Oct, Hypertension I10 ; Anxiety F41.9 ; GERD (gastroesophageal reflux disease) K21.9 ; Depression F32.9 ; Insomnia G47.00 ; Chronic headaches R51 and COPD with acute exacerbation J44.1 [place] [address], [place] [address] Oct, [place] [id number] [place] [address] Oct, [place] [id number] [place] [address] Oct, [place] [address] [address] Oct, [place] [id number] [place] [address] 15 Oct, 2015 Flu-like symptoms R68.89 and COPD with acute exacerbation J44.1 [place] [id number] [place] [address] Oct, [place] [id number] [place] [address] Oct, Left shoulder pain M25.512 ; Chronic headaches R51 ; Environmental allergies Z91.09 ; GERD (gastroesophageal reflux disease) K21.9 ; Insomnia G47.00 ; Hypertension I10 ; Depression F32.9 and 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 [place] [id number] [place] [address] Sep, [place] [id number] [place] [address] Sep, COPD (chronic obstructive pulmonary disease) J44.9 [place] [id number] [place] [address] Sep, Bronchitis J40 [place] [id number] [place] [address] Aug, Cervicalgia 723.1 ; Chronic hepatitis C without mention of hepatic coma 070.54 ; Essential hypertension 401.9 ; Chronic headaches R51 ; Environmental allergies Z91.09 ; GERD (gastroesophageal reflux disease) K21.9 ; Insomnia G47.00 ; Depression F32.9 and COPD (chronic obstructive pulmonary disease) J44.[address] [address] Jul, Essential hypertension 401.9 ; Hypertension I10 ; Depression F32.9 ; Anxiety F41.9 ; Chronic headaches R51 and Cervicalgia M54.[address] [address] Jul, Essential hypertension 401.9 and Anxiety F41.[address] [address] Jul, [address] [address] Jul, [address] [address] Jul, Insomnia G47.00 ; GERD (gastroesophageal reflux disease) K21.9 ; Essential hypertension 401.9 ; Bipolar I disorder, most recent episode (or current) depressed, moderate 296.52 ; Hepatitis C B19.20 ; Depression F32.9 ; Hypertension I10 ; 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 ; Chronic headaches R51 and Chronic pain G89.[address] [address] Jun, [address] [address] Jun, Chronic headaches R51 ; Environmental allergies Z91.09 ; GERD (gastroesophageal reflux disease) K21.9 ; Insomnia G47.00 ; Hepatitis C B19.20 ; Hypertension I10 ; Depression F32.9 ; 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 and Chronic pain G89.[address] [address] Jun, [address] [address] Jun, Vision changes H53.9 [facility] [place] [address] [place] [address] Apr, [facility] [place] [id number] [place] [address] Apr, Bipolar I disorder, most recent episode (or current) depressed, moderate 296.52 ; Other chronic pain 338.29 ; Chronic hepatitis C without mention of hepatic coma 070.54 ; Essential hypertension 401.9 ; Environmental allergies V15.09 and GERD (gastroesophageal reflux disease) 530.81 [facility] [place] [id number] [place] [address] Mar, [facility] [place] [id number] [place] [address] Mar, [facility] [place] [id number] [place] [address] Mar, [facility] [place] [id number] [place] [address] Mar, [facility] [place] [id number] [place] [address] Mar, [facility] [place] [id number] [place] [address] Feb, Routine gynecological examination V72.31 ; Breast cancer screening V76.10 and Tobacco abuse 305.1 [facility] [place] [address], [place] [address] Feb, [facility] [place] [address] [place] [address] January, [facility] [place] [id number] [place] [address] January, [facility] [place] [address] [place] [address] January, [facility] [place] [id number], [place] [address] January, [facility] [place] [address] [place] [address] January, Mood disorder 296.90 and Anxiety 300.00 [facility] [id number] [place] [address] January, [facility] [place] [id number] [place] [address] Dec, Headache 784.0 ; Other chronic pain 338.29 and Cervicalgia 723.1 [facility] [place] [id number] [place] [address] Dec, [facility] [place] [id number] [place] [address] Dec, [facility] [place] [id number] [place] [address] Nov, [facility] [place] [id number] [place] [address] Nov, [facility] [place] [id number] [place] [address] Oct, [facility] [place] [address], [place] [address] Oct, [facility] [place] [address], [place] [address] Oct, [facility] [place] [address], [place] [address] Oct, [facility] [place] [address] [place] [address] Oct, [facility] [place] [address], [place] [address] Oct, [facility] [place] [address], [place] [address] Oct, [facility] [place] [facility] [address] [id number] [place] [address] Oct, [facility] [place] [facility] [address] [id number] [place] [address] Oct, [facility] [place] [facility] [address] [id number] [place] [address] Oct, [facility] [place] [facility] [address] [id number] [place] [address] Oct, [facility] [place] [facility] [address] [id number] [place] [address] Oct, [facility] [place] [facility] [address] [id number] [place] [address] Sep, [facility] [place] [facility] [address] [id number] [place] [address] Sep, [facility] [place] [facility] [address] [id number] [place] [address] Sep, [facility] [place] [facility] [address] [id number] [place] [address] Sep, [facility] [place] [facility] [address] [id number] [place] [address] Sep, [facility] [place] [facility] [address] [id number] [place] [address] Sep, [facility] [place] [facility] [address] [id number] [address] Sep, [facility] [place] [facility] [address] [id number] [place] [address] Sep, [facility] [place] [facility] [address] [id number] [place] [address] Sep, [facility] [place] [facility] [address] [id number] [place] [address] 09 Sep, 2014 [facility] [place] [facility] [address] [id number] [place] [address] Sep, [facility] [place] [facility] [address] [id number] [place] [address] Sep, [facility] [place] [facility] [address] [id number] [place] [address] Sep, [facility] [place] [facility] [address] [id number] [place] [address] Sep, [facility] [place] [facility] [address] [id number] [place] [address] Aug, [facility] [place] [facility] [address] [id number] [place] [address] Aug, [facility] [place] [facility] [address] [id number] [place] [address] Aug, [facility] [place] [facility] [address] [id number] [place] [address] Aug, [facility] [place] [facility] [address] [id number] [place] [address] Aug, [facility] [place] [facility] [address] [id number] [place] [address] Aug, [facility] [place] [facility] [address] [id number] [place] [address] Aug, [facility] [place] [facility] [address] [id number] [place] [address] Aug, [facility] [place] [facility] [address] [id number] [place] [address] Aug, [facility] [place] [facility] [address] [id number] [place] [address] Aug, [facility] [place] [facility] [address] [id number] [place] [address] Aug, [facility] [place] [facility] [address] [id number] [place] [address] Aug, [facility] [place] [facility] [address] [id number] [place] [address] Aug, [facility] [place] [facility] [address] [id number] [place] [address] Jul, [facility] [place] [facility] [address] [id number] [place] [address] Jul, [facility] [place] [facility] [address] [id number] [place] [address] Feb, [facility] [place] [facility] [address] [id number] [place] [address] Feb, [facility] [place] [facility] [address] [id number] [place] [address] January, [facility] [place] [facility] [address] [id number] [place] [address] January, [facility] [place] [facility] [address] [id number] [place] [address] January, [facility] [place] [facility] [address] [id number] [place] [address] January, [facility] [place] [facility] [address] [id number] [place] [address] Nov, [facility] [place] [facility] [address] [id number] [place] [address] Nov, [facility] [place] [facility] [address] [id number] [place] [address] Nov, [facility] [place] [facility] [address] [id number] [place] [address] Nov, [facility] [place] [facility] [address] [id number] [place] [address] Oct, [facility] [place] [facility] [address] [id number] [place] [address] Oct, [facility] [place] [facility] [address] [id number] [place] [address] Sep, [facility] [place] [facility] [address] [id number] [place] [address] Sep, [facility] [place] [facility] [address] [id number] [place] [address] Sep, [facility] [place] [facility] [address] [id number] [place] [address] Sep, [facility] [place] [facility] [address] [id number] [place] [address] Aug, [facility] [place] [facility] [address] [id number] [place] [address] Aug, [facility] [place] [facility] [address] [id number] [place] [address] Aug, [facility] [place] [facility] [address] [id number] [place] [address] Aug, [facility] [place] [facility] [address] [id number] [place] [address] Aug, [facility] [place] [facility] [address] [id number] [place] [address] Aug, [facility] [place] [facility] [address] [id number] [place] [address] Aug, [facility] [place] [facility] [address] [id number] [place] [address] Jul, [facility] [place] [facility] [address] [id number] [place] [address] Jul, [facility] [place] [facility] [address] [id number] [place] [address] Jul, [facility] [place] [facility] [address] [id number] [place] [address] Jul, [facility] [place] [facility] [address] [id number] [place] [address] Jul, [facility] [place] [facility] [address] [id number] [place] [address] 12 Jul, 2013 [facility] [place] [facility] [address] [id number] [place] [address] 08 Jul, 2013 [facility] [place] [facility] [address] [id number] [place] [address] 31 Jun, 2013 [facility] [place] [facility] [address] [id number] [place] [address] 30 Jun, 2013 [facility] [place] [facility] [address] [id number] [place] [address] 30 Jun, 2013 [facility] [place] [facility] [address] [id number] [place] [address] Jun, [facility] [place] [facility] [address] [id number] [place] [address] Jul, [facility] [place] [facility] [address] [id number] [place] [address] 16 Jul, 2010 [facility] [place] [facility] [address] [id number] [place] [address] Jul, [facility] [place] [facility] [address] [id number] [place] [address] Jul, [facility] [place] [facility] [address] [facility] [id number] [place] [address] 26 Jun, 2010 [facility] [place] [facility] [address] [id number] [place] [address] 31 Jun, 2009 [facility] [place] [facility] [address] [id number] [place] [address] 29 Jun, 2009 [facility] [place] [facility] [address] [id number] [place] [address] 28 Jun, 2009 [facility] [place] [facility] [address] [id number] [place] [address] 15 Jun, 2009 [facility] [place] [facility] [address] [id number] [place] [address] Mar, [facility] [place] [address] [facility] [id number] [place] [address] January, IMMUNIZATIONS No Known Immunizations SOCIAL HISTORY Never Assessed REASON FOR VISIT Controlled Refill PLAN OF CARE VITAL SIGNS MEDICATIONS Medication Instructions Dosage Frequency Start Date End Date Duration Status Oxycodone-Acetaminophen 5-325 MG Orally 3 times a day 1 tablet as needed 8h Feb, 30 days Active RESULTS No Results PROCEDURES [...] child Hospitalization History low blood pressure--[facility] [place] 12/2017
--- OUTSIDE RECORDS SUMMARY | 2019-04-09 01:34 | XMS REPORT ---
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 Name Role Phone ROSINA GONZALES Unavailable PROBLEMS Type Condition ICD9-CM Code SSO03-FA Code Onset Dates Condition Status SNOMED Code Problem Hypertension I10 Active 20261853 Problem Cervicalgia M54.2 Active 281359865 Problem COPD (chronic obstructive pulmonary disease) with emphysema J43.9 Active 05836673 Problem Menopause Z78.0 Active 407952208 Problem Postmenopausal HRT (hormone replacement therapy) Z79.890 Active 44193959 Problem COPD with acute exacerbation J44.1 Active 205777928 Problem Anxiety F41.9 Active 10433033 Problem Chest pain R07.9 Active 77176925 Problem Nausea R11.0 Active 397310382 Problem Chronic headaches R51 Active 033715651 Problem Environmental allergies Z91.09 Active 395280446 Problem Insomnia G47.00 Active 274725318 Problem Hepatitis C B19.20 Active 12125793 Problem Depression F32.9 Active 84573949 Problem Chronic pain G89.29 Active 63651816 Problem GERD (gastroesophageal reflux disease) K21.9 Active 508399475 ALLERGIES Substance Reaction Event Type Date Status Zoloft hypotension Drug Allergy Feb, Active Wellbutrin jittery Drug Allergy Feb, Active Tramadol HCl anaphylaxis Drug Allergy Feb, Active Tetracycline HCl rash Drug Allergy Feb, Active Sulfamethoxazole-Trimethoprim Unknown Drug Allergy Feb, Active Penicillin V Potassium rash Drug Allergy Feb, Active Morphine Sulfate anaphylaxis Drug Allergy Feb, Active Doxycycline Hyclate rash Drug Allergy Feb, Active Wasp/hornet/bee stings anaphylaxis Non Drug Allergy Feb, Active ENCOUNTERS Encounter Location Date Diagnosis [facility] [place] [address] [facility] [id number] [address] Mar, Costochondral separation, initial encounter S23.29XA and Injury of toe on left foot, initial encounter S99.922A [address] [id number] Mar, Chronic pain G89.29 [facility] [place] [address] [address] Feb, Poison elda L23.[address] [id number] Feb, Chronic pain G89.29 [facility] [place] [address] [address] Feb, Bronchitis J40 [address] [id number] Feb, [address] [id number] Feb, Chronic pain G89.[address] [id number] January, Vaginal discharge N89.8 ; Increased urinary frequency R35.0 ; Acute cystitis with hematuria N30.01 ; Other specified bacterial agents as the cause of diseases classified elsewhere B96.89 and Acute vaginitis N76.0 [place] [id number] [place] [id number] January, Chronic pain G89.29 and Candidiasis B37.9 [facility] [place] [address] [address] January, [facility] [address] [address] Dec, Acute frontal sinusitis, recurrence not specified J01.10 and Cough R05 [address] [id number] Dec, [address] [id number] Nov, [facility] [place] [address] [address] Nov, Bronchitis J40 [facility] [id number] [id number] Nov, [facility] [id number] [place] [address] Oct, COPD with acute exacerbation J44.1 [facility] [id number] [id number] Oct, Chronic pain G89.29 [facility] [id number] [place] [id number] Oct, [facility] [id number] [id number] Sep, Chronic pain G89.29 ; Depression F32.9 ; Anxiety F41.9 ; 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 and Flu-like symptoms R68.89 [facility] [id number] [address] Aug, Chronic pain G89.29 ; Open bite of other finger without damage to nail, initial encounter S61.258A and Bitten by dog, initial encounter W54.0XXA [place] [id number] [place] [address] Jul, Menopause Z78.0 ; Ankle swelling, unspecified laterality M25.473 ; Chronic pain G89.29 and Tobacco abuse Z72.0 [facility] [id number] [place] [address] Jun, [facility] [place] [address] [place] [id number] [place] [address] Jun, Chronic pain G89.29 [facility] [address] [place] [id number] [place] [address] May, Dysuria R30.0 ; Dehydration E86.0 and Hypertension I10 [place] [id number] [place] [address] May, Menopause Z78.0 ; Depression F32.9 ; Chronic pain G89.29 ; Environmental allergies Z91.09 ; 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 and Encounter for immunization Z23 [facility] [place] [address] [place] [id number] [place] [address] 18 May, 2017 Chronic pain G89.29 [facility] [place] [address] [place] [id number] [place] [address] Apr, Chronic pain G89.29 [facility] [place] [address] [address] Apr, Routine gynecological examination Z01.419 [facility] [place] [address] [address] Mar, Chronic pain G89.29 [facility] [place] [address] [place] [id number] [place] [address] Feb, [facility] [place] [address] [address] Feb, Chronic pain G89.29 [facility] [place] [address] [place] [id number] [place] [address] Feb, [facility] [place] [id number] [place] [address] January, Chronic pain G89.29 [facility] [place] [address] [place] [id number] [place] [address] January, Routine gynecological examination Z01.419 and Breast cancer screening Z12.39 [facility] [place] [address] [place] [id number] [place] [address] January, Chronic pain G89.29 [facility] [place] [address] [place] [id number] [place] [address] Dec, Postmenopausal HRT (hormone replacement therapy) Z79.890 [facility] [place] [address] [place] [id number] [place] [address] Dec, [facility] [place] [address] [address] 31 Nov, 2016 Chronic pain G89.29 [place] [address] [address] 30 Nov, 2016 Chronic headaches R51 ; [...] finger, with routine healing, subsequent encounter S62.639D [place] [address] [address] Nov, [place] [address] [address] Nov, [place] [address] [address] Nov, [place] [address] [address] Nov, Hypertension I10 [place] [address] [address] Nov, [place] [address] [address] Nov, [place] [address] [address] Oct, Anxiety F41.9 [place] [address] [address] Oct, [place] [address] [address] Oct, Acute upper respiratory infection, unspecified J06.9 and Other viral agents as the cause of diseases classified elsewhere B97.89 [place] [address] [address] Oct, [facility] [place] [address] [address] Oct, Right acute serous otitis media, recurrence not specified H65.01 and Pharyngitis, unspecified etiology J02.9 [facility] [place] [address] [place] [id number] [address] Sep, [facility] [place] [address] [place] [id number] [place] [address] Aug, Environmental allergies Z91.09 [facility] [place] [address] [place] [place] [id number] [place] [address] Aug, [facility] [place] [address] [place] [id number] [place] [address] Jul, Atypical nevi D22.9 [facility] [place] [id number] [place] [address] Jul, [facility] [place] [id number] [place] [address] Jul, [facility] [place] [address] [place] [id number] [place] [address] Jul, [facility] [place] [address] [address] Jun, [facility] [place] [address] [address] May, [facility] [place] [address] [address] May, [facility] [place] [address] [place] [id number] [place] [address] May, [facility] [place] [address] [address] Apr, [facility] [place] [address] [address] Apr, Chronic headaches R51 ; GERD (gastroesophageal reflux disease) K21.9 ; Hypertension I10 ; 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 ; Anxiety F41.9 ; COPD with acute exacerbation J44.1 ; Environmental allergies Z91.09 ; Depression F32.9 and Chronic pain G89.29 [facility] [place] [address] [address] Feb, Chronic headaches R51 and Chronic pain G89.29 [facility] [place] [address] [address] January, Chronic pain G89.29 and Anxiety F41.9 [place] [address] [address] January, Depression F32.9 and Hypertension I10 [place] [address] [address] January, Chronic pain G89.29 [facility] [place] [address] [address] Dec, [facility] [place] [address] [address] Dec, [facility] [place] [address] [address] Dec, Chronic headaches R51 ; Chronic pain G89.29 ; Environmental allergies Z91.09 ; GERD (gastroesophageal reflux disease) K21.9 ; Insomnia G47.00 ; Hypertension I10 and COPD with acute exacerbation J44.1 [place] [address] [address] Dec, [place] [address] [address] Dec, Chest pain R07.9 ; GERD (gastroesophageal reflux disease) K21.9 and Nausea R11.0 [place] [address] [address] Nov, [facility] [place] [address] [id number] [place] [address] Oct, COPD with acute exacerbation J44.1 ; Chronic headaches R51 ; GERD (gastroesophageal reflux disease) K21.9 ; Insomnia G47.00 ; Hypertension I10 ; Depression F32.9 and Anxiety F41.9 [place] [address] [place] [id number] [place] [address] Oct, [facility] [place] [address] [address] Oct, [place] [address] [address] Oct, [place] [address] [address] Oct, [place] [address] [address] Oct, Flu-like symptoms R68.89 and COPD with acute exacerbation J44.1 [place] [address] [place] [id number] [place] [address] Oct, [place] [address] [place] [id number] [place] [address] Oct, Left shoulder pain M25.512 ; Chronic headaches R51 ; Environmental allergies Z91.09 ; GERD (gastroesophageal reflux disease) K21.9 ; Insomnia G47.00 ; Hypertension I10 ; Depression F32.9 and 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 [place] [address] [place] [id number] [place] [address] Sep, [address] [address] Sep, COPD (chronic obstructive pulmonary disease) J44.9 [facility] [place] [address] [place] [id number] [place] [address] Sep, Bronchitis J40 [place] [id number] [place] [address] Aug, Cervicalgia 723.1 ; Chronic hepatitis C without mention of hepatic coma 070.54 ; Essential hypertension 401.9 ; Chronic headaches R51 ; Environmental allergies Z91.09 ; GERD (gastroesophageal reflux disease) K21.9 ; Insomnia G47.00 ; Depression F32.9 and COPD (chronic obstructive pulmonary disease) J44.[address] [address] Jul, Essential hypertension 401.9 ; Hypertension I10 ; Depression F32.9 ; Anxiety F41.9 ; Chronic headaches R51 and Cervicalgia M54.[address] [address] Jul, Essential hypertension 401.9 and Anxiety F41.[address] [address] Jul, [address] [address] Jul, [address] [address] Jul, Insomnia G47.00 ; GERD (gastroesophageal reflux disease) K21.9 ; Essential hypertension 401.9 ; Bipolar I disorder, most recent episode (or current) depressed, moderate 296.52 ; Hepatitis C B19.20 ; Depression F32.9 ; Hypertension I10 ; 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 ; Chronic headaches R51 and Chronic pain G89.[address] [address] Jun, [address] [address] Jun, Chronic headaches R51 ; Environmental allergies Z91.09 ; GERD (gastroesophageal reflux disease) K21.9 ; Insomnia G47.00 ; Hepatitis C B19.20 ; Hypertension I10 ; Depression F32.9 ; 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 and Chronic pain G89.29 [facility] [place] [address] [id number] [place] [address] Jun, [facility] [place] [address] [place] [id number] [place] [address] Jun, Vision changes H53.9 [facility] [place] [address] [place] [id number] [place] [address] Apr, [facility] [place] [address] [place] [id number] [place] [address] Apr, Bipolar I disorder, most recent episode (or current) depressed, moderate 296.52 ; Other chronic pain 338.29 ; Chronic hepatitis C without mention of hepatic coma 070.54 ; Essential hypertension 401.9 ; Environmental allergies V15.09 and GERD (gastroesophageal reflux disease) 530.81 [place] [id number] [place] [address] Mar, [facility] [place] [address] [id number] [place] [address] Mar, [facility] [place] [address] [place] [id number] [place] [address] Mar, [facility] [place] [id number] [place] [address] Mar, [facility] [place] [address] [place] [id number] [place] [address] Mar, [facility] [place] [address] [place] [id number] [place] [address] Feb, Routine gynecological examination V72.31 ; Breast cancer screening V76.10 and Tobacco abuse 305.1 [facility] [place] [address] [place] [id number] [place] [address] Feb, [facility] [place] [address] [place] [address] [place] [address] January, [facility] [place] [address] [id number] [address] January, [facility] [place] [id number] [place] [address] January, [facility] [place] [id number] [place] [address] January, [facility] [place] [id number] [place] [address] January, Mood disorder 296.90 and Anxiety 300.00 [facility] [place] [id number] [place] [address] January, [facility] [place] [id number] [place] [address] Dec, Headache 784.0 ; Other chronic pain 338.29 and Cervicalgia 723.1 [facility] [place] [id number] [place] [address] Dec, [facility] [place] [id number] [place] [address] Dec, [facility] [place] [id number] [place] [address] Nov, [facility] [place] [address] [address] Nov, [facility] [place] [address] [address] Oct, [facility] [place] [address] [address] Oct, [facility] [place] [id number] [place] [address] Oct, [facility] [place] [address] [address] Oct, [facility] [place] [id number] [place] [address] Oct, [facility] [place] [facility] [address] [id number] [place] [address] Oct, [facility] [place] [facility] [address] [id number] [place] [address] 19 Oct, 2014 [facility] [place] [facility] [address] [id number] [place] [address] 19 Oct, 2014 [facility] [place] [facility] [address] [id number] [place] [address] 18 Oct, 2014 [facility] [place] [facility] [address] [id number] [place] [address] 18 Oct, 2014 [facility] [place] [facility] [address] [id number] [place] [address] 17 Oct, 2014 [facility] [place] [facility] [address] [id number] [place] [address] 17 Oct, 2014 [facility] [place] [facility] [address] [id number] [place] [address] Sep, [facility] [place] [facility] [address] [id number] [place] [address] Sep, [facility] [place] [facility] [address] [id number] [place] [address] Sep, [facility] [place] [facility] [address] [id number] [place] [address] 15 Sep, 2014 [facility] [place] [facility] [address] [id number] [place] [address] 15 Sep, 2014 [facility] [place] [facility] [address] [id number] [place] [address] 14 Sep, 2014 [facility] [place] [facility] [address] [id number] [place] [address] 14 Sep, 2014 [facility] [place] [facility] [address] [id number] [place] [address] 14 Sep, 2014 [facility] [place] [facility] [address] [id number] [place] [address] Sep, [facility] [address] [id number] [place] [address] Sep, [facility] [address] [id number] [place] [address] Sep, [facility] [address] [id number] [place] [address] Sep, [facility] [address] [id number] [place] [address] Sep, [facility] [address] [id number] [place] [address] Sep, [facility] [address] [id number] [place] [address] Aug, [facility] [address] [id number] [place] [address] Aug, [facility] [address] [id number] [place] [address] Aug, [facility] [address] [id number] [place] [address] Aug, [facility] [address] [id number] [place] [address] Aug, [facility] [place] [facility] [address] [id number] [place] [address] Aug, [facility] [address] [id number] [place] [address] Aug, [facility] [place] [facility] [address] [id number] [place] [address] Aug, [facility] [place] [facility] [address] [id number] [place] [address] Aug, [facility] [place] [facility] [address] [id number] [place] [address] Aug, [facility] [place] [facility] [address] [id number] [place] [address] Aug, [facility] [place] [facility] [address] [id number] [place] [address] Aug, [facility] [place] [facility] [address] [id number] [place] [address] Aug, [facility] [place] [facility] [address] [id number] [place] [address] Jul, [facility] [place] [facility] [address] [id number] [place] [address] Jul, [facility] [place] [facility] [address] [id number] [place] [address] Feb, [facility] [place] [facility] [address] [id number] [place] [address] Feb, [facility] [place] [facility] [address] [id number] [place] [address] January, [facility] [place] [facility] [address] [id number] [place] [address] January, [facility] [place] [facility] [address] [id number] [place] [address] January, [facility] [place] [facility] [address] [id number] [place] [address] January, [facility] [place] [facility] [address] [id number] [place] [address] Nov, [facility] [place] [facility] [address] [id number] [place] [address] Nov, [facility] [place] [facility] [address] [id number] [place] [address] Nov, [facility] [place] [facility] [address] [id number] [place] [address] Nov, [facility] [place] [facility] [address] [id number] [address] Oct, [facility] [address] [id number] [place] [address] Oct, [facility] [address] [id number] [place] [id number] Sep, [facility] [address] [facility] [id number] [place] [address] Sep, [facility] [place] [facility] [address] [id number] [place] [address] Sep, [facility] [address] [id number] [place] [address] Sep, [facility] [address] [facility] [id number] [place] [address] Aug, [facility] [address] [facility] [id number] [place] [address] Aug, [facility] [place] [facility] [address] [facility] [id number] [place] [address] Aug, [facility] [address] [facility] [id number] [place] [address] Aug, [facility] [address] [facility] [id number] [place] [address] Aug, [facility] [place] [facility] [address] [facility] [id number] [place] [address] Aug, [facility] [place] [facility] [address] [facility] [id number] [place] [address] Aug, [facility] [place] [facility] [address] [id number] [place] [address] Jul, [facility] [place] [facility] [address] [facility] [id number] [place] [address] Jul, [facility] [place] [facility] [address] [facility] [id number] [place] [address] Jul, [facility] [place] [facility] [address] [id number] [place] [address] Jul, [facility] [place] [facility] [address] [id number] [place] [address] Jul, [facility] [place] [facility] [address] [id number] [place] [address] Jul, [facility] [place] [facility] [address] [id number] [place] [address] Jul, [facility] [place] [facility] [address] [id number] [place] [address] Jun, [facility] [place] [facility] [address] [id number] [place] [address] Jun, [facility] [place] [facility] [address] [id number] [place] [address] Jun, [facility] [place] [facility] [address] [id number] [place] [address] Jun, [facility] [place] [facility] [address] [id number] [place] [address] 24 Jul, 2010 [facility] [place] [facility] [address] [id number] [place] [address] 16 Jul, 2010 [facility] [place] [facility] [address] [id number] [place] [address] Jul, [facility] [place] [facility] [address] [id number] [place] [address] Jul, [facility] [place] [facility] [address] [id number] [place] [address] Jun, [facility] [place] [facility] [address] [id number] [place] [address] Jun, [facility] [place] [facility] [address] [id number] [place] [address] 29 Jun, 2009 [facility] [place] [facility] [address] [id number] [place] [address] Jun, [facility] [place] [address] [facility] [id number] [place] [address] Jun, [facility] [place] [address] [facility] [id number] [address] Mar, [facility] [place] [address] [facility] [id number] [place] [address] January, IMMUNIZATIONS No Known Immunizations SOCIAL HISTORY Never Assessed REASON FOR VISIT Rash- Started 3 days ago with an itchy rash, states rash in now on her face- Jaci Awan RN PLAN OF CARE Activity Details Follow Up prn Reason: VITAL SIGNS Height 65.2 in 2018-03-15 Weight 138 lbs 2018-03-15 Temperature 98.0 degrees Fahrenheit 2018-03-15 Heart Rate 72 bpm 2018-03-15 Respiratory Rate 18 2018-03-15 BMI 22.82 kg/m2 2018-03-15 Blood pressure systolic 128 mmHg 2018-03-15 Blood pressure diastolic 74 mmHg 2018-03-15 MEDICATIONS Medication Instructions Dosage Frequency Start Date End Date Duration Status Guaifenesin 400 mg Orally 4 times a day 1 tablet as needed 6h Feb, Not-Taking Tizanidine HCl 4 MG Orally Three times a day 1 tablet as needed 8h May, 90 days Active Pantoprazole Sodium 40MG Orally Once a day 1 tablet 24h 90 Active Crestor 10 MG Orally Once a day 1 tablet 24h Active Albuterol Sulfate (2.5 MG/3ML) 0.083% Inhalation Three times a day 3 ml 8h Oct, Active EPINEPHrine 0.3 MG/0.3ML Injection PRN as directed Apr, Active Oxycodone-Acetaminophen 5-325 MG Orally 3 times a day 1 tablet as needed 8h 08 Feb, 2018 20 days Active Venlafaxine HCl ER 75 MG Orally Once a day 1 capsule with food 24h May, 90 days Active ProAir HFA 108 (90 Base) MCG/ACT Inhalation every 4 hrs 2 puffs as needed 4h Mar, Active Montelukast Sodium 10 mg Orally Once a day TAKE ONE TABLET BY MOUTH ONCE DAILY 24h 90 days Active Flonase 50 mcg/act Nasally Once a day 1 sprays by Nasal route 2 times per day in each nostril 24h 18 Nov, 2014 12 months Active Cetirizine HCl 10 mg Orally Once a day 1 tablet as needed 24h 14 May, 2018 90 days Active Coreg 3.125 MG Orally 2 times a day 12h Active Symbicort 160-4.5 mcg/act Inhalation Twice a day inhale 2 puffs by Inhalation route in the morning and evening 2 times per day 12h 20 Jul, 2014 90 days Active Famotidine 20mg Orally 2 times a day TAKE ONE TABLET BY MOUTH TWICE DAILY 12h 30 Active PredniSONE 20 mg Orally Once a day 2 tabs 24h Feb, Feb, 05 days Active HydrOXYzine HCl 25 MG Orally every 8 hrs 1 tablet as needed 8h January, 90 days Active Lisinopril 2.5 MG Orally Once a day 1 tablet 24h Active Hydrochlorothiazide 25 MG Orally PRN only when she has a headache Once a day 1 tablet in the morning 24h Active Trazodone HCl 100MG Orally Once a [...] History child Hospitalization History low blood pressure--[facility] 12/2017
--- OUTSIDE RECORDS SUMMARY | 2019-04-09 01:35 | XMS REPORT ---
Author Author AQUILES OWEN Organization [facility] Address [address] [place] [address] Care Team Providers Care Special Events Driver Name Role Phone BRAYDEN AQUILES Unavailable PROBLEMS Type Condition ICD9-CM Code JGC53-OD Code Onset Dates Condition Status SNOMED Code Problem Hypertension I10 Active 06361119 Problem Cervicalgia M54.2 Active 914888963 Problem COPD (chronic obstructive pulmonary disease) with emphysema J43.9 Active 04813241 Problem Menopause Z78.0 Active 413806089 Problem Postmenopausal HRT (hormone replacement therapy) Z79.890 Active 31415458 Problem COPD with acute exacerbation J44.1 Active 528202655 Problem Anxiety F41.9 Active 24832951 Problem Chest pain R07.9 Active 41555104 Problem Nausea R11.0 Active 569991946 Problem Chronic headaches R51 Active 690460708 Problem Environmental allergies Z91.09 Active 562418028 Problem Insomnia G47.00 Active 173202480 Problem Hepatitis C B19.20 Active 83737742 Problem Depression F32.9 Active 43717900 Problem Chronic pain G89.29 Active 42304512 Problem GERD (gastroesophageal reflux disease) K21.9 Active 324522260 ALLERGIES Substance Reaction Event Type Date Status [...] Feb, Active ENCOUNTERS Encounter Location Date Diagnosis [facility] [address] [facility] [id number] [place] [address] Mar, Costochondral separation, initial encounter S23.29XA and Injury of toe on left foot, initial encounter S99.922A [address] [id number] Mar, Chronic pain G89.29 [facility] [address] [address] Feb, Poison elda L23.[address] [id number] Feb, Chronic pain G89.29 [place] [address] [address] Feb, Bronchitis J40 [address] [id number] Feb, [address] [id number] Feb, Chronic pain G89.[address] [id number] January, Vaginal discharge N89.8 ; Increased urinary frequency R35.0 ; Acute cystitis with hematuria N30.01 ; Other specified bacterial agents as the cause of diseases classified elsewhere B96.89 and Acute vaginitis N76.[address] [id number] January, Chronic pain G89.29 and Candidiasis B37.9 [facility] [address] [address] January, [facility] [address] [address] Dec, Acute frontal sinusitis, recurrence not specified J01.10 and Cough R05 [address] [id number] Dec, [address] [id number] Nov, [facility] [address] [address] 09 Mar, 2018 Bronchitis J40 [facility] [address] [id number] [id number] Nov, [facility] [id number] [place] [address] Oct, COPD with acute exacerbation J44.1 [facility] [id number] [id number] Oct, Chronic pain G89.29 [facility] [id number] [place] [id number] Oct, [facility] [id number] [id number] Sep, Chronic pain G89.29 ; Depression F32.9 ; Anxiety F41.9 ; 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 [id number] [address] Aug, Chronic pain G89.29 ; Open bite of other finger without damage to nail, initial encounter S61.258A and Bitten by dog, initial encounter W54.0XXA [place] [id number] [place] [address] Jul, Menopause Z78.0 ; Ankle swelling, unspecified laterality M25.473 ; Chronic pain G89.29 and Tobacco abuse Z72.0 [facility] [id number] [place] [address] Jun, [facility] [address] [place] [id number] [place] [address] Jun, Chronic pain G89.29 [facility] [address] [place] [id number] [place] [address] May, Dysuria R30.0 ; Dehydration E86.0 and Hypertension I10 [place] [address] [address] [place] [id number] [place] [address] May, Menopause Z78.0 ; Depression F32.9 ; Chronic pain G89.29 ; Environmental allergies Z91.09 ; 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 and Encounter for immunization Z23 [facility] [address] [place] [id number] [place] [address] 18 May, 2017 Chronic pain G89.29 [facility] [address] [place] [id number] [place] [address] Apr, Chronic pain G89.29 [facility] [address] [address] Apr, Routine gynecological examination Z01.419 [facility] [address] [place] [id number] [place] [address] Mar, Chronic pain G89.29 [facility] [address] [place] [id number] [place] [address] Feb, [facility] [address] [address] Feb, Chronic pain G89.29 [facility] [address] [place] [id number] [place] [address] Feb, [facility] [address] [place] [id number] [place] [address] January, Chronic pain G89.29 [facility] [address] [place] [id number] [place] [address] January, Routine gynecological examination Z01.419 and Breast cancer screening Z12.39 [facility] [address] [place] [id number] [place] [address] January, Chronic pain G89.29 [facility] [address] [place] [id number] [place] [address] Dec, Postmenopausal HRT (hormone replacement therapy) Z79.890 [facility] [address] [place] [id number] [place] [address] Dec, [facility] [address] [place] [id number] [place] [address] 31 Nov, 2016 Chronic pain G89.29 [place] [address] [place] [id number] [place] [address] 30 Nov, 2016 Chronic headaches R51 ; [...] finger, with routine healing, subsequent encounter S62.639D [place] [address] [address] Nov, [place] [address] [address] Nov, [place] [address] [address] Nov, [place] [address] [place] [id number] [place] [address] Nov, Hypertension I10 [place] [address] [address] Nov, [place] [address] [place] [id number] [place] [address] Nov, [place] [address] [place] [id number] [place] [address] Oct, Anxiety F41.9 [place] [address] [place] [id number] [place] [address] Oct, [place] [address] [place] [id number] [place] [address] Oct, Acute upper respiratory infection, unspecified J06.9 and Other viral agents as the cause of diseases classified elsewhere B97.89 [place] [address] [address] Oct, [facility] [address] [place] [address] Oct, Right acute serous otitis media, recurrence not specified H65.01 and Pharyngitis, unspecified etiology J02.9 [facility] [address] [place] [id number] [place] [address] Sep, [facility] [address] [place] [id number] [place] [address] Aug, Environmental allergies Z91.09 [facility] [address] [place] [id number] [place] [address] Aug, [facility] [address] [place] [id number] [place] [address] Jul, Atypical nevi D22.9 [facility] [address] [place] [id number] [place] [address] Jul, [facility] [address] [place] [id number] [place] [address] Jul, [facility] [address] [place] [id number] [place] [address] Jul, [facility] [address] [place] [address] Jun, [facility] [address] [place] [id number] [place] [address] May, [facility] [address] [place] [id number] [place] [address] May, [facility] [address] [place] [id number] [place] [address] May, [facility] [address] [place] [address] Apr, [facility] [address] [place] [address] Apr, Chronic headaches R51 ; GERD (gastroesophageal reflux disease) K21.9 ; Hypertension I10 ; 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 ; Anxiety F41.9 ; COPD with acute exacerbation J44.1 ; Environmental allergies Z91.09 ; Depression F32.9 and Chronic pain G89.29 [facility] [address] [place] [id number] [place] [address] Feb, Chronic headaches R51 and Chronic pain G89.29 [place] [address] [address] January, Chronic pain G89.29 and Anxiety F41.9 [place] [address] [address] January, Depression F32.9 and Hypertension I10 [place] [address] [address] January, Chronic pain G89.29 [place] [address] [address] Dec, [facility] [address] [address] Dec, [place] [address] [place] [id number] [place] [address] Dec, Chronic pain G89.29 ; Chronic headaches R51 ; Environmental allergies Z91.09 ; GERD (gastroesophageal reflux disease) K21.9 ; Insomnia G47.00 ; Hypertension I10 and COPD with acute exacerbation J44.1 [place] [address] [place] [id number] [place] [address] Dec, [place] [address] [address] Dec, Chest pain R07.9 ; GERD (gastroesophageal reflux disease) K21.9 and Nausea R11.0 [place] [address] [place] [id number] [place] [address] Nov, [place] [address] [place] [address] 24 Oct, 2015 Hypertension I10 ; Anxiety F41.9 ; GERD (gastroesophageal reflux disease) K21.9 ; Depression F32.9 ; Insomnia G47.00 ; Chronic headaches R51 and COPD with acute exacerbation J44.1 [place] [address] [place] [id number] [place] [address] Oct, [place] [address] [address] Oct, [place] [address] [address] Oct, [place] [address] [address] Oct, [place] [id number] [place] [address] 15 Oct, 2015 Flu-like symptoms R68.89 and COPD with acute exacerbation J44.1 [place] [address] [place] [id number] [place] [address] Oct, [place] [address] [place] [id number] [place] [address] Oct, Left shoulder pain M25.512 ; Chronic headaches R51 ; Environmental allergies Z91.09 ; GERD (gastroesophageal reflux disease) K21.9 ; Insomnia G47.00 ; Hypertension I10 ; Depression F32.9 and 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 [place] [address] [place] [id number] [place] [address] Sep, [address] [address] Sep, COPD (chronic obstructive pulmonary disease) J44.9 [place] [address] [place] [id number] [place] [address] Sep, Bronchitis J40 [place] [id number] [place] [address] Aug, Cervicalgia 723.1 ; Chronic hepatitis C without mention of hepatic coma 070.54 ; Essential hypertension 401.9 ; Chronic headaches R51 ; Environmental allergies Z91.09 ; GERD (gastroesophageal reflux disease) K21.9 ; Insomnia G47.00 ; Depression F32.9 and COPD (chronic obstructive pulmonary disease) J44.[address] [address] Jul, Essential hypertension 401.9 ; Hypertension I10 ; Depression F32.9 ; Anxiety F41.9 ; Chronic headaches R51 and Cervicalgia M54.[address] [address] Jul, Essential hypertension 401.9 and Anxiety F41.[address] [address] Jul, [address] [address] Jul, [address] [address] Jul, Insomnia G47.00 ; GERD (gastroesophageal reflux disease) K21.9 ; Essential hypertension 401.9 ; Bipolar I disorder, most recent episode (or current) depressed, moderate 296.52 ; Hepatitis C B19.20 ; Depression F32.9 ; Hypertension I10 ; 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 ; Chronic headaches R51 and Chronic pain G89.29 [place] [id number] [place] [address] Jun, [address] [address] Jun, Chronic headaches R51 ; Environmental allergies Z91.09 ; GERD (gastroesophageal reflux disease) K21.9 ; Insomnia G47.00 ; Hepatitis C B19.20 ; Hypertension I10 ; Depression F32.9 ; 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 and Chronic pain G89.29 [facility] [address] [place] [id number] [place] [address] Jun, [facility] [address] [address] Jun, Vision changes H53.9 [facility] [address] [place] [address] Apr, [facility] [address] [address] Apr, Bipolar I disorder, most recent episode (or current) depressed, moderate 296.52 ; Other chronic pain 338.29 ; Chronic hepatitis C without mention of hepatic coma 070.54 ; Essential hypertension 401.9 ; Environmental allergies V15.09 and GERD (gastroesophageal reflux disease) 530.[address] [address] Mar, [facility] [address] [place] [id number] [place] [address] Mar, [facility] [address] [place] [address] Mar, [facility] [address] [place] [id number] [place] [address] Mar, [facility] [address] [place] [id number] [place] [address] Mar, [facility] [address] [place] [id number] [place] [address] Feb, Routine gynecological examination V72.31 ; Breast cancer screening V76.10 and Tobacco abuse 305.1 [facility] [address] [place] [address] Feb, [facility] [address] [place] [id number] [place] [address] January, [facility] [address] [place] [address] [address] January, [facility] [address] [place] [address] January, [facility] [address] [place] [id number] [place] [address] January, [facility] [address] [place] [id number] [place] [address] January, Mood disorder 296.90 and Anxiety 300.00 [facility] [address] [place] [id number] [place] [address] January, [facility] [address] [place] [id number] [place] [address] Dec, Headache 784.0 ; Other chronic pain 338.29 and Cervicalgia 723.1 [facility] [address] [place] [id number] [place] [address] Dec, [facility] [address] [id number] [address] Dec, [facility] [address] [place] [id number] [place] [address] Nov, [facility] [address] [address] Nov, [facility] [address] [address] Oct, [facility] [address] [address] Oct, [facility] [address] [address] Oct, [facility] [address] [address] Oct, [facility] [address] [address] Oct, [facility] [place] [facility] [address] [id number] [place] [address] Oct, [facility] [place] [facility] [address] [id number] [place] [address] Oct, [facility] [place] [facility] [address] [id number] [place] [address] Oct, [facility] [place] [facility] [address] [id number] [place] [address] Oct, [facility] [place] [facility] [address] [id number] [place] [address] Oct, [facility] [place] [facility] [address] [id number] [place] [address] Oct, [facility] [place] [facility] [address] [id number] [place] [address] Oct, [facility] [place] [facility] [address] [id number] [place] [address] Sep, [facility] [place] [facility] [address] [id number] [place] [address] Sep, [facility] [place] [facility] [address] [id number] [place] [address] Sep, [facility] [place] [facility] [address] [id number] [address] 15 Sep, 2014 [facility] [place] [facility] [address] [id number] [address] 15 Sep, 2014 [facility] [place] [facility] [address] [id number] [place] [address] 14 Sep, 2014 [facility] [place] [facility] [address] [id number] [place] [address] 14 Sep, 2014 [facility] [place] [facility] [address] [id number] [place] [address] 14 Sep, 2014 [facility] [place] [facility] [address] [id number] [place] [address] Sep, [facility] [place] [facility] [address] [id number] [place] [address] Sep, [facility] [place] [facility] [address] [id number] [place] [address] Sep, [facility] [place] [facility] [address] [id number] [place] [address] Sep, [facility] [place] [facility] [address] [id number] [place] [address] Sep, [facility] [place] [facility] [address] [id number] [place] [address] Sep, [facility] [place] [facility] [address] [id number] [place] [address] Aug, [facility] [place] [facility] [address] [id number] [place] [address] Aug, [facility] [place] [facility] [address] [id number] [place] [address] Aug, [facility] [place] [facility] [address] [id number] [place] [address] Aug, [facility] [place] [facility] [address] [id number] [place] [address] Aug, [facility] [place] [facility] [address] [id number] [place] [address] Aug, [facility] [place] [facility] [address] [id number] [place] [address] Aug, [facility] [place] [facility] [address] [id number] [place] [address] Aug, [facility] [place] [facility] [address] [id number] [place] [address] Aug, [facility] [place] [facility] [address] [id number] [place] [address] Aug, [facility] [place] [facility] [address] [id number] [place] [address] Aug, [facility] [place] [facility] [address] [id number] [place] [address] Aug, [facility] [place] [facility] [address] [id number] [place] [address] Aug, [facility] [place] [facility] [address] [id number] [place] [address] Jul, [facility] [place] [facility] [address] [id number] [place] [address] Jul, [facility] [place] [facility] [address] [id number] [place] [address] Feb, [facility] [place] [facility] [address] [id number] [place] [address] Feb, [facility] [place] [facility] [address] [id number] [place] [address] January, [facility] [place] [facility] [address] [id number] [place] [address] January, [facility] [place] [facility] [address] [id number] [place] [address] January, [facility] [place] [facility] [address] [id number] [place] [address] January, [facility] [place] [facility] [address] [id number] [place] [address] Nov, [facility] [place] [facility] [address] [id number] [place] [address] Nov, [facility] [place] [facility] [address] [id number] [place] [address] Nov, [facility] [place] [facility] [address] [id number] [place] [address] Nov, [facility] [place] [facility] [address] [id number] [place] [address] Oct, [facility] [address] [id number] [place] [address] Oct, [facility] [place] [facility] [address] [id number] [place] [address] Sep, [facility] [place] [facility] [address] [id number] [place] [address] Sep, [facility] [place] [facility] [address] [id number] [place] [address] Sep, [facility] [place] [facility] [address] [id number] [place] [address] Sep, [facility] [place] [facility] [address] [id number] [place] [address] Aug, [facility] [address] [id number] [place] [address] Aug, [facility] [place] [facility] [address] [id number] [place] [address] Aug, [facility] [place] [facility] [address] [id number] [place] [address] Aug, [facility] [place] [facility] [address] [facility] [id number] [place] [address] Aug, [facility] [place] [facility] [address] [id number] [place] [address] Aug, [facility] [place] [facility] [address] [id number] [place] [address] Aug, [facility] [place] [facility] [address] [id number] [place] [address] Jul, [facility] [place] [facility] [address] [id number] [place] [address] Jul, [facility] [place] [facility] [address] [id number] [place] [address] Jul, [facility] [place] [facility] [address] [id number] [place] [address] 13 Jul, 2013 [facility] [place] [facility] [address] [id number] [place] [address] 13 Jul, 2013 [facility] [place] [facility] [address] [id number] [place] [address] Jul, [facility] [place] [facility] [address] [id number] [place] [address] 08 Jul, 2013 [facility] [place] [facility] [address] [id number] [place] [address] Jun, [facility] [place] [facility] [address] [id number] [place] [address] Jun, [facility] [place] [facility] [address] [id number] [place] [address] Jun, [facility] [place] [facility] [address] [id number] [place] [address] Jun, [facility] [place] [facility] [address] [id number] [place] [address] 24 Jul, 2010 [facility] [place] [facility] [address] [id number] [place] [address] 16 Jul, 2010 [facility] [place] [facility] [address] [facility] [id number] [place] [address] Jul, [facility] [place] [facility] [address] [id number] [place] [address] Jul, [facility] [place] [facility] [address] [id number] [place] [address] Jun, [facility] [place] [facility] [address] [id number] [place] [address] 31 Jun, 2009 [facility] [place] [facility] [address] [id number] [place] [address] 29 Jun, 2009 [facility] [place] [facility] [address] [id number] [place] [address] Jun, [facility] [address] [facility] [id number] [address] Jun, [facility] [address] [facility] [id number], [place] [address] Mar, [facility] [address] [facility] [id number], [place] [address] January, IMMUNIZATIONS No Known Immunizations SOCIAL HISTORY Never Assessed REASON FOR VISIT Cough, PT reports that she went on vacation to [facility] and when she returned home she started having a lot of congestion in her chest. Pt notes a lot of drainage along with a deep cough. PT says she has had a low grade fever but has been taki ng ibuprofen to treat. PT denies abnormal bowels.-Jewel [employer] C[employer] VITAL SIGNS Height 65.2 in 2018-03-03 Weight 137.1 lbs 2018-03-03 Temperature 98.1 degrees Fahrenheit 2018-03-03 Heart Rate 78 bpm 2018-03-03 Respiratory Rate 20 2018-03-03 Oximetry on room air:97 % 2018-03-03 BMI 22.67 kg/m2 2018-03-03 Blood pressure systolic 135 mmHg 2018-03-03 Blood pressure diastolic 78 mmHg 2018-03-03 MEDICATIONS Medication Instructions Dosage Frequency Start Date End Date Duration Status Albuterol Sulfate (2.5 MG/3ML) 0.083% Inhalation Three times a day 3 ml 8h 15 Oct, 2015 Active Tizanidine HCl 4 MG Orally Three times a day 1 tablet as needed 8h May, 90 days Active Pantoprazole Sodium 40MG Orally Once a day 1 tablet 24h 90 Active PredniSONE 20 mg Orally Once a day 2 tablets 24h Feb, Feb, 05 days Active Lisinopril 2.5 MG Orally Once a day 1 tablet 24h Active Guaifenesin 400 mg Orally 4 times a day 1 tablet as needed 6h Feb, Active Cetirizine HCl 10 mg Orally Once a day 1 tablet as needed 24h 14 May, 2018 90 days Active Oxycodone-Acetaminophen 5-325 MG Orally 3 times a day 1 tablet as needed 8h 08 Feb, 2018 20 days Active ProAir HFA 108 (90 Base) MCG/ACT Inhalation every 4 hrs 2 puffs as needed 4h 29 Mar, 2015 Active Venlafaxine HCl ER 75 MG Orally Once a day 1 capsule with food 24h 19 May, 2017 90 days Active EPINEPHrine 0.3 MG/0.3ML Injection PRN as directed Apr, Active Flonase 50 mcg/act Nasally Once a day 1 sprays by Nasal route 2 times per day in each nostril 24h 18 Nov, 2014 12 months Active Montelukast Sodium 10 mg Orally Once a day TAKE ONE TABLET BY MOUTH ONCE DAILY 24h 90 days Active Levaquin 500 mg Orally Once a day 1 tablet 24h Feb, Feb, 10 day(s) Active HydrOXYzine HCl 25 MG Orally every 8 hrs 1 tablet as needed 8h January, 90 days Active Famotidine 20mg Orally 2 times a day TAKE ONE TABLET BY MOUTH TWICE DAILY 12h 30 Active Crestor 10 MG Orally Once a day 1 tablet 24h Active Symbicort 160-4.5 mcg/act Inhalation Twice a day inhale 2 puffs by Inhalation route in the morning and evening 2 times per day 12h 20 Jul, 2014 90 days Active Hydrochlorothiazide 25 MG Orally Once a day 1 tablet in the morning 24h Active Coreg 3.125 MG Orally 2 times a day 12h Active Trazodone HCl 100MG Orally Once a [...] History child Hospitalization History low blood pressure--via [facility] 12/2017
--- OUTSIDE RECORDS SUMMARY | 2019-04-09 01:35 | XMS REPORT ---
Author Author SHABANA DELGADO Organization [facility] Address [address] [place] [address] Care Team Providers Care Cook Pickled Meat Name Role Phone WILMABRITNEYSHABANA Mims Unavailable PROBLEMS Type Condition ICD9-CM Code OHV62-UN Code Onset Dates Condition Status SNOMED Code Problem Hypertension I10 Active 15136561 Problem Cervicalgia M54.2 Active 922842152 Problem COPD (chronic obstructive pulmonary disease) with emphysema J43.9 Active 50152763 Problem Menopause Z78.0 Active 322430441 Problem Postmenopausal HRT (hormone replacement therapy) Z79.890 Active 05626922 Problem COPD with acute exacerbation J44.1 Active 043351085 Problem Anxiety F41.9 Active 40310256 Problem Chest pain R07.9 Active 16255687 Problem Nausea R11.0 Active 044580561 Problem Chronic headaches R51 Active 260101011 Problem Environmental allergies Z91.09 Active 044082418 Problem Insomnia G47.00 Active 824168581 Problem Hepatitis C B19.20 Active 52671217 Problem Depression F32.9 Active 59929407 Problem Chronic pain G89.29 Active 26487509 Problem GERD (gastroesophageal reflux disease) K21.9 Active 472728401 ALLERGIES No Information ENCOUNTERS Encounter Location Date Diagnosis [facility] [id number] [place] [address] Mar, Costochondral separation, initial encounter S23.29XA and Injury of toe on left foot, initial encounter S99.922A [facility] [id number] [place] [id number] Mar, Chronic pain G89.29 [facility] [id number] [place] [address] Feb, Poison elda L23.7 [facility] [id number] [place] [id number] Feb, Chronic pain G89.29 [facility] [id number] [place] [address] Feb, Bronchitis J[id number] [place] [id number] Feb, [id number] [place] [address] [id number] Feb, Chronic pain G89.29 [id number] [place] [id number] January, Vaginal discharge N89.8 ; Increased urinary frequency R35.0 ; Acute cystitis with hematuria N30.01 ; Other specified bacterial agents as the cause of diseases classified elsewhere B96.89 and Acute vaginitis N76.0 [id number] [place] [id number] January, Chronic pain G89.29 and Candidiasis B37.9 [facility] [id number] [place] [address] January, [facility] [address] [place] [id number] [place] [address] Dec, Acute frontal sinusitis, recurrence not specified J01.10 and Cough R05 [id number] [place] [id number] Dec, [id number] [place] [address] [id number] Nov, [facility] [id number] [place] [address] Nov, Bronchitis J40 [address] [id number] [id number] Nov, [facility] [id number] [place] [address] Oct, COPD with acute exacerbation J44.1 [id number] [place] [id number] Oct, Chronic pain G89.29 [facility] [address] [facility] [id number] [id number] Oct, [facility] [id number] [place] [id number] Sep, Chronic pain G89.29 ; Depression F32.9 ; Anxiety F41.9 ; 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 and Flu-like symptoms R68.89 [facility] Amezquita [place]ERCE [id number] [place] [address] Aug, Chronic pain G89.29 ; Open bite of other finger without damage to nail, initial encounter S61.258A and Bitten by dog, initial encounter W54.0XXA [place] [id number] [place] [address] Jul, Menopause Z78.0 ; Ankle swelling, unspecified laterality M25.473 ; Chronic pain G89.29 and Tobacco abuse Z72.0 [facility] [id number] [place] [address] Jun, [facility] [address] [address] Jun, Chronic pain G89.29 [facility] [id number] [place] [address] May, Dysuria R30.0 ; Dehydration E86.0 and Hypertension I10 [place] [address] [address] May, Menopause Z78.0 ; Depression F32.9 ; Chronic pain G89.29 ; Environmental allergies Z91.09 ; 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 and Encounter for immunization Z23 [place] [id number] [place] [address] May, Chronic pain G89.29 [place] [address] [address] Apr, Chronic pain G89.29 [facility] [address] [address] Apr, Routine gynecological examination Z01.419 [facility] [address] [place] [address] Mar, Chronic pain G89.29 [facility] [id number] [place] [address] Feb, [facility] [id number] [place] [address] Feb, Chronic pain G89.29 [facility] [id number] [place] [address] Feb, [facility] [id number] [place] [address] January, Chronic pain G89.29 [facility] [id number] [place] [address] January, Routine gynecological examination Z01.419 and Breast cancer screening Z12.39 [facility] [id number] [place] [address] January, Chronic pain G89.29 [facility] [address] [place] [address] Dec, Postmenopausal HRT (hormone replacement therapy) Z79.890 [place] [address] [place] [address] Dec, [facility] [address] [place] [address] Nov, Chronic pain G89.29 [facility] [address] [place] [address] Nov, Chronic headaches R51 ; GERD (gastroesophageal [...] S62.639D [facility] [id number] [place] [address] 15 Nov, 2016 [facility] [address] [address] Nov, [facility] [id number] [place] [address] Nov, [place] [address] [address] Nov, Hypertension I10 [facility] [id number] [place] [address] Nov, [facility] [address] [address] Nov, [facility] [id number] [place] [address] Oct, Anxiety F41.9 [facility] [id number] [place] [address] Oct, [facility] [id number] [place] [address] Oct, Acute upper respiratory infection, unspecified J06.9 and Other viral agents as the cause of diseases classified elsewhere B97.89 [facility] [id number] [place] [address] Oct, [facility] [id number] [place] [address] Oct, Right acute serous otitis media, recurrence not specified H65.01 and Pharyngitis, unspecified etiology J02.9 [facility] [id number] [place] [address] Sep, [facility] [address] [address] Aug, Environmental allergies Z91.09 [facility] [address] [address] Aug, [facility] [address] [address] Jul, Atypical nevi D22.9 [facility] [address] [address] Jul, [facility] [id number] [place] [address] Jul, [facility] [id number] [address] Jul, [facility] [address] [address] Jun, [facility] [address] [address] May, [facility] [address] [address] 13 May, 2016 [facility] [address] [address] May, [facility] [address] [address] Apr, [facility] [address] [address] Apr, Chronic headaches R51 ; GERD (gastroesophageal reflux disease) K21.9 ; Hypertension I10 ; 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 ; Anxiety F41.9 ; COPD with acute exacerbation J44.1 ; Environmental allergies Z91.09 ; Depression F32.9 and Chronic pain G89.29 [facility] [address] [address] Feb, Chronic headaches R51 and Chronic pain G89.29 [facility] [id number] [place] [address] January, Chronic pain G89.29 and Anxiety F41.9 [place] [id number] [place] [address] January, Depression F32.9 and Hypertension I10 [place] [address] [address] January, Chronic pain G89.29 [place] [address] [address] Dec, [place] [address] [address] Dec, [place] [address] [address] Dec, Chronic headaches R51 ; Chronic pain G89.29 ; Environmental allergies Z91.09 ; GERD (gastroesophageal reflux disease) K21.9 ; Insomnia G47.00 ; Hypertension I10 and COPD with acute exacerbation J44.1 [place] [address] [address] Dec, [place] [address] [address] Dec, Chest pain R07.9 ; GERD (gastroesophageal reflux disease) K21.9 and Nausea R11.0 [place] [id number] [place] [address] Nov, [place] [address] [address] Oct, COPD with acute exacerbation J44.1 ; Chronic headaches R51 ; GERD (gastroesophageal reflux disease) K21.9 ; Insomnia G47.00 ; Hypertension I10 ; Depression F32.9 and Anxiety F41.[address] [address] Oct, [facility] [id number] [place] [address] Oct, [place] [id number] [place] [address] Oct, [place] [address] [address] Oct, [place] [address] [address] Oct, Flu-like symptoms R68.89 and COPD with acute exacerbation J44.1 [place] [address] [address] Oct, [place] [id number] [place] [address] Oct, Left shoulder pain M25.512 ; Chronic headaches R51 ; Environmental allergies Z91.09 ; GERD (gastroesophageal reflux disease) K21.9 ; Insomnia G47.00 ; Hypertension I10 ; Depression F32.9 and 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09 ; GERD (gastroesophageal reflux disease) K21.9 ; Insomnia G47.00 ; Depression F32.9 and COPD (chronic obstructive pulmonary disease) J44.9 [place] [id number] [place] [address] Jul, Essential hypertension 401.9 ; Hypertension I10 ; Depression F32.9 ; Anxiety F41.9 ; Chronic headaches R51 and Cervicalgia M54.[address] [address] Jul, Essential hypertension 401.9 and Anxiety F41.[address] [address] Jul, [address] [address] Jul, [address] [address] Jul, Insomnia G47.00 ; GERD (gastroesophageal reflux disease) K21.9 ; Essential hypertension 401.9 ; Bipolar I disorder, most recent episode (or current) depressed, moderate 296.52 ; Hepatitis C B19.20 ; Depression F32.9 ; Hypertension I10 ; 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 ; Chronic headaches R51 and Chronic pain G89.[address] [address] Jun, [address] [address] Jun, Chronic headaches R51 ; Environmental allergies Z91.09 ; GERD (gastroesophageal reflux disease) K21.9 ; Insomnia G47.00 ; Hepatitis C B19.20 ; Hypertension I10 ; Depression F32.9 ; 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 and Chronic pain G89.[address] [address] Jun, [address] [address] Jun, Vision changes H53.[address] [place] [address] Apr, [facility] [id number] [place] [address] Apr, Bipolar I disorder, most recent episode (or current) depressed, moderate 296.52 ; Other chronic pain 338.29 ; Chronic hepatitis C without mention of hepatic coma 070.54 ; Essential hypertension 401.9 ; Environmental allergies V15.09 and GERD (gastroesophageal reflux disease) 530.81 [facility] [id number] [place] [address] Mar, [facility] [id number] [place] [address] Mar, [facility] [id number] [place] [address] Mar, [facility] [id number] [place] [address] Mar, [facility] [id number] [place] [address] Mar, [facility] [id number] [place] [address] Feb, Routine gynecological examination V72.31 ; Breast cancer screening V76.10 and Tobacco abuse 305.1 [facility] [address] [address] Feb, [facility] [id number] [place] [address] January, [facility] [id number] [place] [address] January, [facility] [id number] [place] [address] January, [facility] [address] [address] January, [facility] [id number] [place] [address] January, Mood disorder 296.90 and Anxiety 300.00 [facility] [id number] [place] [address] January, [facility] [id number] [place] [address] Dec, Headache 784.0 ; Other chronic pain 338.29 and Cervicalgia 723.1 [facility] [id number] [place] [address] Dec, [facility] [id number] [place] [address] Dec, [facility] [id number] [place] [address] Nov, [facility] [id number] [place] [address] Nov, [facility] [id number] [place] [address] Oct, [facility] [id number] [place] [address] Oct, [facility] [id number] [place] [address] Oct, [facility] [address] [place] [address] Oct, [facility] [id number] [place] [address] Oct, [facility] [id number] [place] [address] Oct, [facility] [id number] [place] [address] Oct, [facility] [address] [place] [address] Oct, [facility] [place] [facility] [address] [id number] [place] [address] Oct, [facility] [place] [facility] [address] [id number] [place] [address] Oct, [facility] [place] [facility] [address] [id number] [place] [address] Oct, [facility] [place] [facility] [address] [id number] [place] [address] Oct, [facility] [place] [facility] [address] [id number] [place] [address] Sep, [facility] [place] [facility] [address] [id number] [place] [address] Sep, [facility] [place] [facility] [address] [id number] [place] [address] Sep, [facility] [place] [facility] [address] [id number] [place] [address] Sep, [facility] [place] [facility] [address] [id number] [place] [address] Sep, [facility] [place] [facility] [address] [id number] [place] [address] Sep, [facility] [place] [facility] [address] [id number] [place] [address] Sep, [facility] [place] [facility] [address] [id number] [place] [address] Sep, [facility] [place] [facility] [address] [id number] [place] [address] Sep, [facility] [place] [facility] [address] [id number] [place] [address] Sep, [facility] [place] [facility] [address] [id number] [place] [address] Sep, [facility] [place] [facility] [address] [id number] [place] [address] Sep, [facility] [place] [facility] [address] [id number] [place] [address] Sep, [facility] [place] [facility] [address] [id number] [place] [address] Sep, [facility] [place] [facility] [address] [id number] [place] [address] Aug, [facility] [place] [facility] [address] [id number] [place] [address] Aug, [facility] [place] [facility] [address] [id number] [place] [address] Aug, [facility] [place] [facility] [address] [id number] [place] [address] Aug, [facility] [place] [facility] [address] [id number] [place] [address] Aug, [facility] [place] [facility] [address] [id number] [place] [address] Aug, [facility] [place] [facility] [address] [id number] [place] [address] Aug, [facility] [place] [facility] [address] [id number] [place] [address] Aug, [facility] [place] [facility] [address] [id number] [place] [address] Aug, [facility] [place] [facility] [address] [id number] [place] [address] Aug, [facility] [place] [facility] [address] [id number] [place] [address] Aug, [facility] [place] [facility] [address] [id number] [place] [address] Aug, [facility] [place] [facility] [address] [id number] [place] [address] Aug, [facility] [place] [facility] [address] [id number] [place] [address] Jul, [facility] [place] [facility] [address] [id number] [place] [address] Jul, [facility] [place] [facility] [address] [id number] [place] [address] Feb, [facility] [place] [facility] [address] [id number] [place] [address] Feb, [facility] [place] [facility] [address] [id number] [place] [address] January, [facility] [place] [facility] [address] [id number] [place] [address] January, [facility] [place] [facility] [address] [id number] [place] [address] January, [facility] [place] [facility] [address] [id number] [place] [address] January, [facility] [place] [facility] [address] [id number] [place] [address] Nov, [facility] [place] [facility] [address] [id number] [place] [address] Nov, [facility] [place] [facility] [address] [id number] [place] [address] Nov, [facility] [place] [facility] [address] [id number] [place] [address] Nov, [facility] [place] [facility] [address] [id number] [place] [address] Oct, [facility] [place] [facility] [address] [id number] [place] [address] Oct, [facility] [place] [facility] [address] [id number] [place] [address] Sep, [facility] [place] [facility] [address] [id number] [place] [address] Sep, [facility] [address] [id number] [place] [address] Sep, [facility] [place] [facility] [address] [id number] [place] [address] Sep, [facility] [place] [facility] [address] [facility] [id number] [place] [address] Aug, [facility] [place] [facility] [address] [id number] [place] [address] Aug, [facility] [place] [facility] [address] [id number] [place] [address] Aug, [facility] [place] [facility] [address] [id number] [place] [address] Aug, [facility] [place] [facility] [address] [id number] [place] [address] Aug, [facility] [place] [facility] [address] [id number] [place] [address] Aug, [facility] [place] [facility] [address] [id number] [place] [address] Aug, [facility] [place] [facility] [address] [id number] [place] [address] Jul, [facility] [place] [facility] [address] [id number], [place] [address] Jul, [facility] [place] [facility] [address] [id number], [place] [address] Jul, [facility] [place] [facility] [address] [id number] [place] [address] Jul, [facility] [place] [facility] [address] [id number], [place] [address] Jul, [facility] [place] [facility] [address] [id number], [place] [address] Jul, [facility] [place] [facility] [address] [id number] [place] [address] 08 Jul, 2013 [facility] [address] [id number] [place] [address] Jun, [facility] [address] [id number] [place] [address] Jun, [facility] [address] [id number] [place] [address] Jun, [facility] [address] [id number] [place] [address] Jun, [facility] [address] [facility] [id number] [place] [address], [place] [address] Jul, [facility] [address] [facility] [id number] [place] [address] Jul, [facility] [address] [facility] [id number] [place] [address], [place] [address] Jul, [facility] [facility] [address] [facility] [id number] [place] [id number] Jul, [facility] [address] [facility] [id number] [place] [id number] Jun, [facility] [address] [facility] [id number] [address] 31 Jun, 2009 [facility] [address] [facility] [id number] [place] [address] 29 Jun, 2009 [facility] [address] [facility] [id number], [place] [address] 28 Jun, 2009 [facility] [address] [facility] [id number] [place] [address] 15 Jun, 2009 [facility] [address] [facility] [id number] [place] [address] Mar, [facility] [address] [facility] [id number], [place] [address] January, IMMUNIZATIONS No Known Immunizations SOCIAL HISTORY [...] History child Hospitalization History low blood pressure--via [facility] 12/2017
--- OUTSIDE RECORDS SUMMARY | 2019-04-09 01:36 | XMS REPORT ---
Author Author SHABANA DELGADO Organization 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0 Active 585530894 Problem Chronic headaches R51 Active 819363461 Problem Environmental allergies Z91.09 Active 519671122 Problem Insomnia G47.00 Active 229136979 Problem Hepatitis C B19.20 Active 87044653 Problem Depression F32.9 Active 03873526 Problem Chronic pain G89.29 Active 65283195 Problem GERD (gastroesophageal reflux disease) K21.9 Active 283364632 ALLERGIES No Information ENCOUNTERS Encounter Location Date Diagnosis [facility] [address] [place] [address] Mar, Costochondral separation, initial encounter S23.29XA and Injury of toe on left foot, initial encounter S99.922A [facility] [id number] [place] [address] [id number] Mar, Chronic pain G89.29 [facility] [id number] [place] [address] Feb, Poison elda L23.7 [facility] [id number] [place] [address] [id number] Feb, Chronic pain G89.29 [facility] [id number] [place] [address] Feb, Bronchitis J40 [id number] [place] [address] [id number] Feb, [id number] [place] [address] [id number] Feb, Chronic pain G89.29 [address] [id number] [place] [address] [id number] January, Vaginal discharge N89.8 ; Increased urinary frequency R35.0 ; Acute cystitis with hematuria N30.01 ; Other specified bacterial agents as the cause of diseases classified elsewhere B96.89 and Acute vaginitis N76.0 [address] [id number] [place] [address] [id number] January, Chronic pain G89.[address] [facility] [id number] [place] [address] January, [facility] [address] [place] [id number] [place] [address] Dec, Acute frontal sinusitis, recurrence not specified J01.10 and Cough R05 [id number] [place] [address] [id number] Dec, [id number] [place] [address] [id number] Nov, [facility] [id number] [place] [address] Nov, Bronchitis J40 [address] [id number] [id number] Nov, [facility] [id number] [place] [address] Oct, COPD with acute exacerbation J44.1 [id number] [place] [address] [id number] Oct, Chronic pain G89.29 [facility] [address] [facility] [id number] [id number] Oct, [facility] [id number] [place] [address] [id number] Sep, Chronic pain G89.29 ; Depression F32.9 ; Anxiety F41.9 ; 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 and Flu-like symptoms R68.89 [facility] MALKA Amezquita COMMERCE [id number] [place] [address] Aug, Chronic pain G89.29 ; Open bite of other finger without damage to nail, initial encounter S61.258A and Bitten by dog, initial encounter W54.0XXA [place] [id number] [place] [address] Jul, Menopause Z78.0 ; Ankle swelling, unspecified laterality M25.473 ; Chronic pain G89.29 and Tobacco abuse Z72.0 [facility] [id number] [place] [address] Jun, 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 [address] [address] Apr, Routine gynecological examination Z01.419 [facility] [address] [place] [address] Mar, Chronic pain G89.29 [facility] [id number] [place] [address] Feb, [facility] [id number] [place] [address] Feb, Chronic pain G89.29 [facility] [id number] [place] [address] Feb, [facility] [id number] [place] [address] January, Chronic pain G89.29 [facility] [id number] [place] [address] January, Routine gynecological examination Z01.419 and Breast cancer screening Z12.39 [facility] [id number] [place] [address] January, Chronic pain G89.29 [facility] [address] [place] [address] Dec, Postmenopausal HRT (hormone replacement therapy) Z79.890 [place] [address] [place] [address] Dec, [facility] [address] [place] [address] Nov, Chronic pain G89.29 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 [id number] [place] [address] 15 Nov, [address] [facility] [address] [address] Nov, [facility] [id number] [place] [address] Nov, [place] [address] [address] Nov, Hypertension I10 [facility] [id number] [place] [address] Nov, [facility] [address] [address] Nov, [facility] [id number] [place] [address] Oct, Anxiety F41.9 [facility] [id number] [place] [address] Oct, [facility] [id number] [place] [address] Oct, Acute upper respiratory infection, unspecified J06.9 and Other viral agents as the cause of diseases classified elsewhere B97.89 [facility] [id number] [place] [address] Oct, [facility] [id number] [place] [address] Oct, Right acute serous otitis media, recurrence not specified H65.01 and Pharyngitis, unspecified etiology J02.9 [facility] [id number] [place] [address] Sep, [facility] [address], [place] [address] Aug, Environmental allergies Z91.09 [facility] [address] [address] Aug, [facility] [address], [place] [address] Jul, Atypical nevi D22.9 [facility] [address], [place] [address] Jul, [facility] [id number] [place] [address] Jul, [facility] [address] [address] Jul, [facility] [address], [place] [address] Jun, [facility] [address], [place] [address] May, [facility] [address], [place] [address] 13 [address], [address] [facility] [address], [place] [address] May, [facility] [address], [place] [address] Apr, 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 [address], [place] [address] Feb, Chronic headaches R51 and Chronic pain G89.29 [facility] [id number] [place] [address] January, Chronic pain G89.29 and Anxiety F41.9 [place] [address] [place] [address] January, Depression F32.9 and Hypertension I10 [place] [address] [address] January, Chronic pain G89.29 [place] [address] [address] Dec, [place] [address] [address] Dec, [place] [address] [place] [address] Dec, Chronic pain G89.29 ; Chronic headaches R51 ; Environmental allergies Z91.09 ; GERD (gastroesophageal reflux disease) K21.9 ; Insomnia G47.00 ; Hypertension I10 and COPD with acute exacerbation J44.1 [place] [address] [address] Dec, [place] [id number] [place] [address] Dec, Chest pain R07.9 ; GERD (gastroesophageal reflux disease) K21.9 and Nausea R11.0 [place] [id number] [place] [address] Nov, [place] [address] [address] Oct, Hypertension I10 ; Anxiety F41.9 ; GERD (gastroesophageal reflux disease) K21.9 ; Depression F32.9 ; Insomnia G47.00 ; Chronic headaches R51 and COPD with acute exacerbation J44.1 [place] [address] [address] Oct, [facility] [id number] [place] [address] Oct, [place] [id number] [place] [address] Oct, [place] [address] [address] Oct, [place] [address] [address] Oct, Flu-like symptoms R68.89 and COPD with acute exacerbation J44.1 [place] [address] [address] Oct, [place] [address] [place] [address] Oct, Left shoulder pain M25.512 ; Chronic headaches R51 ; Environmental allergies Z91.09 ; GERD (gastroesophageal reflux disease) K21.9 ; Insomnia G47.00 ; Hypertension I10 ; Depression F32.9 and 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 [place] [id number] [place] [address] Sep, [place] [id number] [place] [address] Sep, COPD (chronic obstructive pulmonary disease) J44.9 [place] [address] [place] [address] Sep, Bronchitis J40 [place] [address] [place] [address] Aug, Cervicalgia 723.1 ; Chronic hepatitis C without mention of hepatic coma 070.54 ; Essential hypertension 401.9 ; Chronic headaches R51 ; Environmental allergies Z91.09 ; GERD (gastroesophageal reflux disease) K21.9 ; Insomnia G47.00 ; Depression F32.9 and COPD (chronic obstructive pulmonary disease) J44.9 [place] [address] [place] [address] Jul, Essential hypertension 401.9 ; Hypertension I10 ; Depression F32.9 ; Anxiety F41.9 ; Chronic headaches R51 and Cervicalgia M54.[address] [address] Jul, Essential hypertension 401.9 and Anxiety F41.[address] [address] Jul, [address] [address] Jul, [address] [address] Jul, Insomnia G47.00 ; GERD (gastroesophageal reflux disease) K21.9 ; Essential hypertension 401.9 ; Bipolar I disorder, most recent episode (or current) depressed, moderate 296.52 ; Hepatitis C B19.20 ; Depression F32.9 ; Hypertension I10 ; 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 [id number] [place] [address] Apr, Bipolar I disorder, most recent episode (or current) depressed, moderate 296.52 ; Other chronic pain 338.29 ; Chronic hepatitis C without mention of hepatic coma 070.54 ; Essential hypertension 401.9 ; Environmental allergies V15.09 and GERD (gastroesophageal reflux disease) 530.81 [facility] [id number] [place] [address] Mar, [facility] [id number] [place] [address] Mar, [facility] [id number] [place] [address] Mar, [facility] [id number] [place] [address] Mar, [facility] [id number] [place] [address] Mar, [facility] [address] [place] [address] Feb, Routine gynecological examination V72.31 ; Breast cancer screening V76.10 and Tobacco abuse 305.1 [facility] [address] [address] Feb, [facility] [id number] [place] [address] January, [facility] [address] [place] [address] January, [facility] [address] [place] [address] January, [facility] [address], [place] [address] January, [facility] [address] [place] [address] January, Mood disorder 296.[address] [facility] [address] [place] [address] January, [facility] [address] [place] [address] Dec, Headache 784.0 ; Other chronic pain 338.[address] [facility] [address] [place] [address] Dec, [facility] [address] [place] [address] Dec, [facility] [id number] [place] [address] Nov, [facility] [id number] [place] [address] Nov, [facility] [id number] [place] [address] Oct, [facility] [id number] [place] [address] Oct, [facility] [id number] [place] [address] Oct, [facility] [address] [place] [address] Oct, [facility] [id number] [place] [address] Oct, [facility] [id number] [place] [address] Oct, [facility] [id number] [place] [address] Oct, [facility] [address] [place] [address] Oct, [facility] [place] [facility] [address] [id number] [place] [address] Oct, [facility] [place] [facility] [address] [id number] [place] [address] Oct, [facility] [place] [facility] [address] [id number] [place] [address] Oct, [facility] [place] [facility] [address] [id number] [place] [address] Oct, [facility] [place] [facility] [address] [id number] [place] [address] Sep, [facility] [place] [facility] [address] [id number] [place] [address] Sep, [facility] [place] [facility] [address] [id number] [place] [address] Sep, [facility] [place] [facility] [address] [id number] [place] [address] Sep, [facility] [place] [facility] [address] [id number] [place] [address] Sep, [facility] [place] [facility] [address] [id number] [place] [address] Sep, [facility] [place] [facility] [address] [id number] [place] [address] Sep, [facility] [place] [facility] [address] [id number] [place] [address] Sep, [facility] [place] [facility] [address] [id number] [place] [address] Sep, [facility] [place] [facility] [address] [id number] [place] [address] Sep, [facility] [place] [facility] [address] [id number] [place] [address] Sep, [facility] [place] [facility] [address] [id number] [place] [address] Sep, [facility] [place] [facility] [address] [id number] [place] [address] Sep, [facility] [place] [facility] [address] [id number] [place] [address] Sep, [facility] [place] [facility] [address] [id number] [place] [address] Aug, [facility] [place] [facility] [address] [id number] [place] [address] Aug, [facility] [place] [facility] [address] [id number] [place] [address] Aug, [facility] [place] [facility] [address] [id number] [place] [address] Aug, [facility] [place] [facility] [address] [id number] [place] [address] Aug, [facility] [place] [facility] [address] [id number] [place] [address] Aug, [facility] [place] [facility] [address] [id number] [place] [address] Aug, [facility] [place] [facility] [address] [id number] [place] [address] Aug, [facility] [place] [facility] [address] [id number] [place] [address] Aug, [facility] [place] [facility] [address] [id number] [place] [address] Aug, [facility] [place] [facility] [address] [id number] [place] [address] Aug, [facility] [place] [facility] [address] [id number] [place] [address] Aug, [facility] [place] [facility] [address] [id number] [place] [address] Aug, [facility] [place] [facility] [address] [id number] [place] [address] Jul, [facility] [place] [facility] [address] [id number] [place] [address] Jul, [facility] [place] [facility] [address] [id number] [place] [address] Feb, [facility] [place] [facility] [address] [id number] [place] [address] Feb, [facility] [place] [facility] [address] [id number] [place] [address] January, [facility] [place] [facility] [address] [id number] [place] [address] January, [facility] [place] [facility] [address] [id number] [place] [address] January, [facility] [place] [facility] [address] [id number] [place] [address] January, [facility] [place] [facility] [address] [id number] [place] [address] Nov, [facility] [place] [facility] [address] [id number] [place] [address] Nov, [facility] [place] [facility] [address] [id number] [place] [address] Nov, [facility] [place] [facility] [address] [id number] [place] [address] Nov, [facility] [place] [facility] [address] [id number] [place] [address] Oct, [facility] [place] [facility] [address] [id number] [place] [address] Oct, [facility] [place] [facility] [address] [id number] [place] [address] Sep, [facility] [place] [facility] [address] [id number] [place] [address] Sep, [facility] [address] [id number] [place] [address] Sep, [facility] [place] [facility] [address] [id number] [place] [address] Sep, [facility] [place] [facility] [address] [facility] [id number] [place] [address] Aug, [facility] [place] [facility] [address] [id number] [place] [address] Aug, [facility] [place] [facility] [address] [id number] [place] [address] Aug, [facility] [place] [facility] [address] [id number] [place] [address] Aug, [facility] [place] [facility] [address] [id number] [place] [address] Aug, [facility] [place] [facility] [address] [id number] [place] [address] Aug, [facility] [place] [facility] [address] [id number] [place] [address] Aug, [facility] [place] [facility] [address] [id number] [place] [address] Jul, [facility] [place] [facility] [address] [id number], [place] [address] Jul, [facility] [place] [facility] [address] [id number], [place] [address] Jul, [facility] [place] [facility] [address] [id number] [place] [address] Jul, [facility] [place] [facility] [address] [id number], [place] [address] Jul, [facility] [place] [facility] [address] [id number], [place] [address] Jul, [facility] [place] [facility] [address] [id number] [place] [address] 08 Jul, 2013 [facility] [address] [id number] [place] [address] Jun, [facility] [address] [id number] [place] [address] Jun, [facility] [address] [id number] [place] [address] Jun, [facility] [address] [id number] [place] [address] Jun, [facility] [address] [facility] [id number] [place] [address], [place] [address] Jul, [facility] [address] [facility] [id number] [place] [address] Jul, [facility] [address] [facility] [id number] [place] [address], [place] [address] Jul, [facility] [address] [facility] [id number] [place] [address] Jul, [facility] [address] [facility] [id number] [place] [address] Jun, [facility] [address] [facility] [id number], [place] [address] 31 Jun, 2009 [facility] [address] [facility] [id number] [place] [address] 29 Jun, 2009 [facility] [address] [facility] [id number], [place] [address] 28 Jun, 2009 [facility] [address] [facility] [id number] [place] [address] 15 Jun, 2009 [facility] [address] [facility] [id number] [place] [address] Mar, [facility] [address] [facility] [id number], [place] [address] January, IMMUNIZATIONS No Known Immunizations SOCIAL HISTORY Never Assessed REASON FOR VISIT PLAN OF CARE VITAL SIGNS MEDICATIONS Medication Instructions Dosage Frequency Start Date End Date Duration Status Oxycodone-Acetaminophen 5-325 MG Orally 3 times a day 1 tablet as needed 8h Feb, 20 days Active RESULTS No Results PROCEDURES No [...] History child Hospitalization History low blood [facility]
[2019-04-09 01:37] LABS: PROTHROMBIN TIME PATIENT 13.3 SEC (12.2-14.7)
--- OUTSIDE RECORDS SUMMARY | 2019-04-09 01:37 | XMS REPORT ---
Author Author SHABANA DELGADO Organization [facility] Address [address] [place] [address] Care Team Providers Care Assistant Chief Engineer Name Role Phone CHRISTYCLARISSAAASHISH SHABANA Unavailable PROBLEMS Type Condition ICD9-CM Code BZD09-RS Code Onset Dates Condition Status SNOMED Code Problem Hypertension I10 Active 52915064 Problem Cervicalgia M54.2 Active 451865994 Problem COPD (chronic obstructive pulmonary disease) with emphysema J43.9 Active 20926414 Problem Menopause Z78.0 Active 218821174 Problem Postmenopausal HRT (hormone replacement therapy) Z79.890 Active 24504888 Problem COPD with acute exacerbation J44.1 Active 530165724 Problem Anxiety F41.9 Active 78360837 Problem Chest pain R07.9 Active 19489115 Problem Nausea R11.0 Active 139822016 Problem Chronic headaches R51 Active 400698799 Problem Environmental allergies Z91.09 Active 854139382 Problem Insomnia G47.00 Active 394098262 Problem Hepatitis C B19.20 Active 62336974 Problem Depression F32.9 Active 33416832 Problem Chronic pain G89.29 Active 42953091 Problem GERD (gastroesophageal reflux disease) K21.9 Active 762615554 ALLERGIES Substance Reaction Event Type Date Status [...] stings anaphylaxis Non Drug Allergy January, Active ENCOUNTERS Encounter Location Date Diagnosis [facility] [address] [facility] [id number] [place] [id number] Apr, [facility] [id number] [place] [address] Mar, Costochondral separation, initial encounter S23.29XA and Injury of toe on left foot, initial encounter S99.922A [facility] [id number] [place] [id number] Mar, Chronic pain G89.29 [facility] [address] [address] Feb, Poison elda L23.[address] [id number] Feb, Chronic pain G89.29 [place] [address] [address] Feb, Bronchitis J40 [address] [id number] Feb, [address] [id number] Feb, Chronic pain G89.[address] [id number] January, Vaginal discharge N89.8 ; Increased urinary frequency R35.0 ; Acute cystitis with hematuria N30.01 ; Other specified bacterial agents as the cause of diseases classified elsewhere B96.89 and Acute vaginitis N76.0 [place] [id number] [place] [id number] January, Chronic pain G89.29 and Candidiasis B37.9 [facility] [id number] [place] [address] January, [facility] [address] [address] Dec, Acute frontal sinusitis, recurrence not specified J01.10 and Cough R05 [place] [id number] [place] [id number] Dec, [address] [id number] Nov, [facility] [address] [address] Nov, Bronchitis J40 [facility] [address] [id number] [place] [id number] Nov, [facility] [id number] [place] [address] Oct, COPD with acute exacerbation J44.1 [facility] [id number] [id number] Oct, Chronic pain G89.29 [facility] [id number] [place] [id number] Oct, [facility] [id number] [id number] Sep, Chronic pain G89.29 ; Depression F32.9 ; Anxiety F41.9 ; 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 and Flu-like symptoms R68.89 [facility] MALKA Amezquita COMMERCE [id number] [place] [address] Aug, Chronic pain G89.29 ; Open bite of other finger without damage to nail, initial encounter S61.258A and Bitten by dog, initial encounter W54.0XXA [address] [address] Jul, Menopause Z78.0 ; Ankle swelling, unspecified laterality M25.473 ; Chronic pain G89.29 and Tobacco abuse Z72.0 [facility] [address] [address] Jun, [facility] [id number] [place] [address] Jun, Chronic pain G89.29 [facility] [address] [address] May, Dysuria R30.0 ; Dehydration E86.0 and Hypertension I10 [place] [id number] [place] [address] 19 May, 2017 Menopause Z78.0 ; Depression F32.9 ; Chronic pain G89.29 ; Environmental allergies Z91.09 ; 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 and Encounter for immunization Z23 [facility] [id number] [place] [address] 18 May, 2017 Chronic pain G89.29 [facility] [id number] [place] [address] Apr, Chronic pain G89.29 [place] [id number] [place] [address] Apr, Routine gynecological examination Z01.419 [place] [id number] [place] [address] Mar, Chronic pain G89.29 [facility] [id number] [place] [address] Feb, [facility] [id number] [place] [address] Feb, Chronic pain G89.29 [facility] [id number] [place] [address] Feb, [facility] [address] [place] [address] January, Chronic pain G89.29 [facility] [id number] [place] [address] January, Routine gynecological examination Z01.419 and Breast cancer screening Z12.39 [place] [id number] [place] [address] January, Chronic pain G89.29 [facility] [address] [place] [address] Dec, Postmenopausal HRT (hormone replacement therapy) Z79.890 [place] [id number] [place] [address] Dec, [facility] [id number] [place] [address] 31 Nov, 2016 Chronic pain G89.29 [facility] [id number] [place] [address] 30 Nov, 2016 Chronic headaches R51 ; [...] healing, subsequent encounter S62.639D [facility] [id number] [place] [address] 15 Nov, 2016 [place] [address] [address] Nov, [facility] [id number] [place] [address] Nov, [place] [id number] [place] [address] Nov, Hypertension I10 [facility] [id number] [place] [address] Nov, [facility] [id number] [place] [address] Nov, [facility] [id number] [place] [address] Oct, Anxiety F41.9 [facility] [id number] [place] [address] Oct, [facility] [id number] [place] [address] 07 Oct, 2016 Acute upper respiratory infection, unspecified J06.9 and Other viral agents as the cause of diseases classified elsewhere B97.89 [facility] [id number] [place] [address] Oct, [facility] [id number] [place] [address] Oct, Right acute serous otitis media, recurrence not specified H65.01 and Pharyngitis, unspecified etiology J02.9 [facility] [id number] [place] [address] Sep, [facility] [id number] [place] [address] Aug, Environmental allergies Z91.09 [facility] [id number] [place] [address] Aug, [facility] [id number] [place] [address] Jul, Atypical nevi D22.9 [facility] [address] [place] [address] Jul, [facility] [id number] [place] [address] Jul, [facility] [address] [address] Jul, [facility] [address] [address] Jun, [facility] [address] [place] [address] May, [facility] [id number] [place] [address] May, [facility] [address] [place] [address] May, [facility] [id number] [place] [address] Apr, [place] [id number] [place] [address] Apr, Chronic headaches R51 ; GERD (gastroesophageal reflux disease) K21.9 ; Hypertension I10 ; 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 ; Anxiety F41.9 ; COPD with acute exacerbation J44.1 ; Environmental allergies Z91.09 ; Depression F32.9 and Chronic pain G89.29 [place] [address] [address] Feb, Chronic headaches R51 and Chronic pain G89.[address] [address] January, Chronic pain G89.29 and Anxiety F41.[address] [address] January, Depression F32.9 and Hypertension I10 [place] [address] [address] January, Chronic pain G89.29 [place] [address] [address] Dec, [place] [address] [address] Dec, [place] [address] [address] Dec, Chronic pain G89.29 ; Chronic headaches R51 ; Environmental allergies Z91.09 ; GERD (gastroesophageal reflux disease) K21.9 ; Insomnia G47.00 ; Hypertension I10 and COPD with acute exacerbation J44.[address] [address] Dec, [address] [address] Dec, Chest pain R07.9 ; GERD (gastroesophageal reflux disease) K21.9 and Nausea R11.0 [place] [id number] [place] [address] Nov, [place] [id number] [place] [address] 24 Oct, 2015 Hypertension I10 ; Anxiety F41.9 ; GERD (gastroesophageal reflux disease) K21.9 ; Depression F32.9 ; Insomnia G47.00 ; Chronic headaches R51 and COPD with acute exacerbation J44.1 [place] [id number] [place] [address] Oct, [address] [address] Oct, [place] [address] [address] Oct, [place] [address] [address] Oct, [place] [id number] [place] [address] Oct, Flu-like symptoms R68.89 and COPD with acute exacerbation J44.1 [place] [id number] [place] [address] Oct, [place] [id number] [place] [address] Oct, Left shoulder pain M25.512 ; Chronic headaches R51 ; Environmental allergies Z91.09 ; GERD (gastroesophageal reflux disease) K21.9 ; Insomnia G47.00 ; Hypertension I10 ; Depression F32.9 and 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 [place] [id number] [place] [address] Sep, [place] [id number] [place] [address] Sep, COPD (chronic obstructive pulmonary disease) J44.9 [place] [id number] [place] [address] Sep, Bronchitis J40 [place] [address] [address] Aug, Cervicalgia 723.1 ; Chronic hepatitis C without mention of hepatic coma 070.54 ; Essential hypertension 401.9 ; Chronic headaches R51 ; Environmental allergies Z91.09 ; GERD (gastroesophageal reflux disease) K21.9 ; Insomnia G47.00 ; Depression F32.9 and COPD (chronic obstructive pulmonary disease) J44.9 [place] [address] [address] Jul, Essential hypertension 401.9 ; Hypertension I10 ; Depression F32.9 ; Anxiety F41.9 ; Chronic headaches R51 and Cervicalgia M54.[address] [address] Jul, Essential hypertension 401.9 and Anxiety F41.[address] [address] Jul, [address] [address] Jul, [address] [address] Jul, Insomnia G47.00 ; GERD (gastroesophageal reflux disease) K21.9 ; Essential hypertension 401.9 ; Bipolar I disorder, most recent episode (or current) depressed, moderate 296.52 ; Hepatitis C B19.20 ; Depression F32.9 ; Hypertension I10 ; 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 ; Chronic headaches R51 and Chronic pain G89.29 [place] [id number] [place] [address] Jun, [address] [address] Jun, Chronic headaches R51 ; Environmental allergies Z91.09 ; GERD (gastroesophageal reflux disease) K21.9 ; Insomnia G47.00 ; Hepatitis C B19.20 ; Hypertension I10 ; Depression F32.9 ; 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 and Chronic pain G89.29 [place] [id number] [place] [address] Jun, [address] [address] Jun, Vision changes H53.[address] [address] Apr, [address] [address] Apr, Bipolar I disorder, most recent episode (or current) depressed, moderate 296.52 ; Other chronic pain 338.29 ; Chronic hepatitis C without mention of hepatic coma 070.54 ; Essential hypertension 401.9 ; Environmental allergies V15.09 and GERD (gastroesophageal reflux disease) 530.81 [place] [id number] [place] [address] Mar, [address] [address] Mar, [place] [id number] [place] [address] Mar, [address] [address] Mar, [place] [id number] [place] [address] Mar, [address] [address] Feb, Routine gynecological examination V72.31 ; Breast cancer screening V76.10 and Tobacco abuse 305.[address] [address] Feb, [address] [id number] [address] January, [facility] [address] [place] [address] January, [facility] [address] [address] January, [facility] [id number] [place] [address] January, [facility] [address] [place] [address] January, Mood disorder 296.90 and Anxiety 300.00 [facility] [id number] [place] [address] January, [facility] [id number] [place] [address] Dec, Headache 784.0 ; Other chronic pain 338.29 and Cervicalgia 723.1 [facility] [address] [address] Dec, [facility] [id number] [address] Dec, [facility] [address] [address] Nov, [facility] [address] [address] Nov, [facility] [address] [address] Oct, [facility] [address] [address] Oct, [facility] [address] [address] Oct, [facility] [address] [address] Oct, [facility] [place] [facility] [address] [id number] [place] [address] Oct, [facility] [place] [facility] [address] [id number] [place] [address] 20 Oct, 2014 [facility] [place] [facility] [address] [facility] [id number] [place] [address] Oct, 2014 [facility] [place] [facility] [address] [id number] [place] [address] Oct, 2014 [facility] [place] [facility] [address] [id number] [place] [address] Oct, [facility] [place] [facility] [address] [facility] [id number] [place] [address] 18 Oct, 2014 [facility] [place] [facility] [address] [facility] [id number] [place] [address] Oct, [facility] [place] [facility] [address] [facility] [id number] [place] [address] Oct, [facility] [place] [facility] [address] [facility] [id number] [place] [address] Sep, [facility] [place] [facility] [address] [facility] [id number] [place] [address] Sep, [facility] [place] [facility] [address] [facility] [id number] [place] [address] Sep, [facility] [place] [facility] [address] [facility] [id number] [address] 15 Sep, 2014 [facility] [place] [facility] [address] [id number], [place] [address] 15 Sep, 2014 [facility] [place] [facility] [address] [facility] [id number], [place] [address] 14 Sep, 2014 [facility] [place] [facility] [address] [facility] [id number] [place] [address] 14 Sep, 2014 [facility] [place] [facility] [address] [id number] [place] [address] 14 Sep, 2014 [facility] [place] [facility] [address] [id number] [place] [address] Sep, [facility] [place] [facility] [address] [id number] [place] [address] Sep, [facility] [place] [facility] [address] [id number] [place] [address] Sep, [facility] [place] [facility] [address] [id number] [place] [address] Sep, [facility] [place] [facility] [address] [id number] [place] [address] Sep, [facility] [place] [facility] [address] [id number] [place] [address] Sep, [facility] [place] [facility] [address] [id number] [place] [address] Aug, [facility] [place] [facility] [address] [id number] [place] [address] Aug, [facility] [place] [facility] [address] [id number] [place] [address] Aug, [facility] [place] [facility] [address] [id number] [place] [address] Aug, [facility] [place] [facility] [address] [id number] [place] [address] Aug, [facility] [place] [facility] [address] [id number] [place] [address] Aug, [facility] [place] [facility] [address] [id number] [place] [address] Aug, [facility] [place] [facility] [address] [id number] [place] [address] Aug, [facility] [place] [facility] [address] [id number] [place] [address] Aug, [facility] [place] [facility] [address] [id number] [place] [address] Aug, [facility] [place] [facility] [address] [id number] [place] [address] Aug, [facility] [place] [facility] [address] [id number] [place] [address] Aug, [facility] [place] [facility] [address] [id number] [place] [address] Aug, [facility] [place] [facility] [address] [id number] [place] [address] Jul, [facility] [place] [facility] [address] [id number] [place] [address] Jul, [facility] [place] [facility] [address] [id number] [place] [address] Feb, [facility] [place] [facility] [address] [id number] [place] [address] Feb, [facility] [place] [facility] [address] [id number] [place] [address] January, [facility] [place] [facility] [address] [id number] [place] [address] January, [facility] [place] [facility] [address] [id number] [place] [address] January, [facility] [place] [facility] [address] [id number] [place] [address] January, [facility] [place] [facility] [address] [id number] [place] [address] Nov, [facility] [place] [facility] [address] [id number] [place] [address] Nov, [facility] [place] [facility] [address] [id number] [place] [address] Nov, [facility] [place] [facility] [address] [id number] [place] [address] Nov, [facility] [address] [id number] [place] [address] Oct, [facility] [address] [id number] [place] [address] Oct, [facility] [address] [id number] [place] [address] Sep, [facility] [address] [id number] [place] [address] Sep, [facility] [address] [id number] [place] [address] Sep, [facility] [address] [id number] [place] [address] Sep, [facility] [address] [id number] [place] [address] Aug, [facility] [address] [id number] [place] [address] Aug, [facility] [address] [id number] [place] [address] Aug, [facility] [address] [facility] [id number] [place] [address] Aug, [facility] [address] [id number] [place] [address] Aug, [facility] [address] [id number] [place] [address] Aug, [facility] [place] [facility] [address] [id number] [place] [address] Aug, [facility] [place] [facility] [address] [id number] [place] [address] Jul, [facility] [address] [id number] [place] [address] Jul, [facility] [place] [facility] [address] [id number] [place] [address] 19 Jul, 2013 [facility] [place] [facility] [address] [id number] [place] [address] Jul, [facility] [place] [facility] [address] [id number] [place] [address] Jul, [facility] [place] [facility] [address] [id number] [place] [address] Jul, [facility] [place] [facility] [address] [id number] [place] [address] Jul, [facility] [place] [facility] [address] [id number] [place] [address] Jun, [facility] [place] [facility] [address] [id number] [place] [address] Jun, [facility] [place] [facility] [address] [id number] [place] [address] Jun, [facility] [place] [facility] [address] [id number] [place] [address] Jun, [facility] [place] [facility] [address] [id number], [place] [address] Jul, [facility] [place] [facility] [address] [id number], [place] [address] 16 Jul, 2010 [facility] [place] [facility] [address] [id number], [place] [address] Jul, [facility] [place] [facility] [address] [id number], [place] [address] Jul, [facility] [place] [facility] [address] [id number], [place] [address] Jun, [facility] [place] [facility] [address] [id number], [place] [address] 31 Jun, 2009 [facility] [place] [facility] [address] [id number], [place] [address] Jun, [facility] [address] [facility] [id number], [place] [address] Jun, [place] [address] [facility] [id number], [place] [address] Jun, [place] [address] [facility] [id number], [place] [address] Mar, [place] [address] [facility] [id number], [place] [address] January, IMMUNIZATIONS Vaccine Route Administration Date Status ROCEPHIN 1 GM (IM) IM Intramuscular February 18, 2018 Administered SOCIAL HISTORY Never Assessed REASON FOR VISIT Painful intercourse on Thursday, vaginal discharge started after. [place] [employer] PLAN OF CARE Activity Details Follow Up prn Reason: VITAL SIGNS Height 65.2 in 2018-02-18 Weight 138.8 lbs 2018-02-18 Temperature 97 degrees Fahrenheit 2018-02-18 Heart Rate 70 bpm 2018-02-18 Respiratory Rate 18 2018-02-18 BMI 22.95 kg/m2 2018-02-18 Blood pressure systolic 138 mmHg 2018-02-18 Blood pressure diastolic 80 mmHg 2018-02-18 MEDICATIONS Medication Instructions Dosage Frequency Start Date End Date Duration Status Pantoprazole Sodium 40MG Orally Once a day 1 tablet 24h 90 Active Famotidine 20mg Orally 2 times a day TAKE ONE TABLET BY MOUTH TWICE DAILY 12h 30 Active HydrOXYzine HCl 25 MG Orally every 8 hrs 1 tablet as needed 8h January, 90 days Active Diflucan 150 MG Orally every 72 hours 1 tablet January, Feb, 10 day(s) Active Cetirizine HCl 10 mg Orally Once a day 1 tablet as needed 24h May, 90 days Active Venlafaxine HCl ER 75 MG Orally Once a day 1 capsule with food 24h May, 90 days Active Albuterol Sulfate (2.5 MG/3ML) 0.083% Inhalation Three times a day 3 ml 8h 15 Oct, 2015 Active Hydrochlorothiazide 25 MG Orally Once a day 1 tablet in the morning 24h Active Lisinopril 2.5 MG Orally Once a day 1 tablet 24h Active Symbicort 160-4.5 mcg/act Inhalation Twice a day inhale 2 puffs by Inhalation route in the morning and evening 2 times per day 12h 20 Jul, 2014 90 days Active ProAir HFA 108 (90 Base) MCG/ACT Inhalation every 4 hrs 2 puffs as needed 4h Mar, Active Oxycodone-Acetaminophen 5-325 MG Orally 3 times a day 1 tablet as needed 8h 10 Jan, 2018 Feb, 30 days Active EPINEPHrine 0.3 MG/0.3ML Injection PRN as directed Apr, Active Tizanidine HCl 4 MG Orally Three times a day 1 tablet as needed 8h 19 May, 2017 90 days Active Trazodone HCl 100MG Orally Once a day 1 tablet at bedtime 24h 90 days Active Montelukast Sodium 10 mg Orally Once a day TAKE ONE TABLET BY MOUTH ONCE DAILY 24h 90 days Active Coreg 3.125 MG Orally 2 times a day 12h Active Crestor 10 MG Orally Once a day 1 tablet 24h Active Flonase 50 mcg/act Nasally Once a day 1 sprays by Nasal route 2 times per day in each nostril 24h Nov, 12 months Active MetroGel-Vaginal 0.75 % Vaginal Once a day 1 application at bedtime 24h January, Feb, 5 day(s) Active RESULTS No Results PROCEDURES Procedure Date Ordered Result Body Site Bacterial Vaginosis In House February 18, 2018 LAB NOT BILLED BY [facility] February 18, 2018 ROCEPHIN 1 GM (IM) February 18, 2018 URINALYSIS, AUTO, W/O SCOPE February 18, 2018 THER/PROPH/DIAG INJ, SC/IM February 18, 2018 INSTRUCTIONS MEDICATIONS ADMINISTERED No Known Medications [...] child Hospitalization History low blood pressure--[facility] 12/2017
--- OUTSIDE RECORDS SUMMARY | 2019-04-09 01:38 | XMS REPORT ---
Author Author SHABANA DELGADO Organization [facility] Address [address] [place] [address] Care Team Providers Care Stave Bolt Equalizer Name Role Phone CHRISTYCLARISSAAASHISH SHABANA Unavailable PROBLEMS Type Condition ICD9-CM Code GRJ85-CU Code Onset Dates Condition Status SNOMED Code Problem Hypertension I10 Active 04738125 Problem Cervicalgia M54.2 Active 735999231 Problem COPD (chronic obstructive pulmonary disease) with emphysema J43.9 Active 80433283 Problem Menopause Z78.0 Active 832446593 Problem Postmenopausal HRT (hormone replacement therapy) Z79.890 Active 60180617 Problem COPD with acute exacerbation J44.1 Active 554675798 Problem Anxiety F41.9 Active 11796026 Problem Chest pain R07.9 Active 75402843 Problem Nausea R11.0 Active 498998012 Problem Chronic headaches R51 Active 986269199 Problem Environmental allergies Z91.09 Active 931396057 Problem Insomnia G47.00 Active 998998591 Problem Hepatitis C B19.20 Active 69450634 Problem Depression F32.9 Active 49498236 Problem Chronic pain G89.29 Active 96097020 Problem GERD (gastroesophageal reflux disease) K21.9 Active 334847261 ALLERGIES Substance Reaction Event Type Date Status [...] January, Active ENCOUNTERS Encounter Location Date Diagnosis [facility] [address] [facility] [id number] [place] [id number] Apr, [facility] [id number] [place] [address] Mar, Costochondral separation, initial encounter S23.29XA and Injury of toe on left foot, initial encounter S99.922A [facility] [id number] [place] [id number] Mar, Chronic pain G89.29 [facility] [address] [address] Feb, Poison elda L23.[address] [id number] Feb, Chronic pain G89.29 [place] [address] [address] Feb, Bronchitis J40 [address] [id number] Feb, [address] [id number] Feb, Chronic pain G89.[address] [id number] January, Vaginal discharge N89.8 ; Increased urinary frequency R35.0 ; Acute cystitis with hematuria N30.01 ; Other specified bacterial agents as the cause of diseases classified elsewhere B96.89 and Acute vaginitis N76.0 [place] [id number] [place] [id number] January, Chronic pain G89.29 and Candidiasis B37.9 [facility] [id number] [place] [address] January, [facility] [address] [address] Dec, Acute frontal sinusitis, recurrence not specified J01.10 and Cough R05 [place] [id number] [place] [id number] Dec, [address] [id number] Nov, [facility] [address], [place] [address] Nov, Bronchitis J40 [facility] [address] [id number] [place] [id number] Nov, [facility] [id number] [place] [address] Oct, COPD with acute exacerbation J44.1 [facility] [id number] [place] [id number] Oct, Chronic pain G89.29 [facility] [address] [place] [id number] Oct, [facility] [id number] [place] [id number] Sep, Chronic pain G89.29 ; Depression F32.9 ; Anxiety F41.9 ; 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 and Flu-like symptoms R68.89 [facility] MALKA Amezquita COMMERCE [id number] [place] [address] Aug, Chronic pain G89.29 ; Open bite of other finger without damage to nail, initial encounter S61.258A and Bitten by dog, initial encounter W54.0XXA [address], [place] [address] Jul, Menopause Z78.0 ; Ankle swelling, unspecified laterality M25.473 ; Chronic pain G89.29 and Tobacco abuse Z72.0 [facility] [address]65[address], [place] [address] Jun, [facility] [id number] [place] [address] Jun, Chronic pain G89.29 [facility] [address]65[address], [place] [address] May, Dysuria R30.0 ; Dehydration E86.0 and Hypertension I10 [place] [id number] [place] [address] 19 May, 2017 Menopause Z78.0 ; Depression F32.9 ; Chronic pain G89.29 ; Environmental allergies Z91.09 ; 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 and Encounter for immunization Z23 [facility] [address] [place] [address] 18 May, 2017 Chronic pain G89.29 [facility] [id number] [place] [address] Apr, Chronic pain G89.29 [place] [id number] [place] [address] Apr, Routine gynecological examination Z01.419 [place] [id number] [place] [address] Mar, Chronic pain G89.29 [facility] [id number] [place] [address] Feb, [facility] [id number] [place] [address] Feb, Chronic pain G89.29 [facility] [id number] [place] [address] Feb, [facility] [address] [place] [address] January, Chronic pain G89.29 [facility] [id number] [place] [address] January, Routine gynecological examination Z01.419 and Breast cancer screening Z12.39 [place] [id number] [place] [address] January, Chronic pain G89.29 [facility] [address] [place] [address] Dec, Postmenopausal HRT (hormone replacement therapy) Z79.890 [place] [id number] [place] [address] Dec, [facility] [id number] [place] [address] 31 Nov, 2016 Chronic pain G89.29 [facility] [id number] [place] [address] 30 Nov, 2016 Chronic headaches R51 ; [...] healing, subsequent encounter S62.639D [facility] [id number] [place] [address] 15 Nov, 2016 [place] [address] [address] Nov, [facility] [id number] [place] [address] Nov, [place] [id number] [place] [address] Nov, Hypertension I10 [facility] [id number] [place] [address] Nov, [facility] [id number] [place] [address] Nov, [facility] [id number] [place] [address] Oct, Anxiety F41.9 [facility] [id number] [place] [address] Oct, [facility] [id number] [place] [address] 07 Oct, 2016 Acute upper respiratory infection, unspecified J06.9 and Other viral agents as the cause of diseases classified elsewhere B97.89 [facility] [id number] [place] [address] Oct, [facility] [id number] [place] [address] Oct, Right acute serous otitis media, recurrence not specified H65.01 and Pharyngitis, unspecified etiology J02.9 [facility] [id number] [place] [address] Sep, [facility] [id number] [place] [address] Aug, Environmental allergies Z91.09 [facility] [id number] [place] [address] Aug, [facility] [id number] [place] [address] Jul, Atypical nevi D22.9 [facility] [address] [place] [address] Jul, [facility] [id number] [place] [address] Jul, [facility] [address], [place] [address] Jul, [facility] [address], [place] [address] Jun, [facility] [id number] [place] [address] May, [facility] [id number] [place] [address] May, [facility] [address] [place] [address] May, [facility] [id number] [place] [address] Apr, [place] [id number] [place] [address] Apr, Chronic headaches R51 ; GERD (gastroesophageal reflux disease) K21.9 ; Hypertension I10 ; 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 ; Anxiety F41.9 ; COPD with acute exacerbation J44.1 ; Environmental allergies Z91.09 ; Depression F32.9 and Chronic pain G89.29 [place] [address] [address] Feb, Chronic headaches R51 and Chronic pain G89.[address] [address] January, Chronic pain G89.29 and Anxiety F41.[address] [address] January, Depression F32.9 and Hypertension I10 [place] [address] [address] January, Chronic pain G89.29 [place] [address] [address] Dec, [place] [address] [address] Dec, [place] [address] [address] Dec, Chronic pain G89.29 ; Chronic headaches R51 ; Environmental allergies Z91.09 ; GERD (gastroesophageal reflux disease) K21.9 ; Insomnia G47.00 ; Hypertension I10 and COPD with acute exacerbation J44.[address] [address] Dec, [address] [address] Dec, Chest pain R07.9 ; GERD (gastroesophageal reflux disease) K21.9 and Nausea R11.0 [place] [id number] [place] [address] Nov, [place] [id number] [place] [address] 24 Oct, 2015 Hypertension I10 ; Anxiety F41.9 ; GERD (gastroesophageal reflux disease) K21.9 ; Depression F32.9 ; Insomnia G47.00 ; Chronic headaches R51 and COPD with acute exacerbation J44.1 [place] [id number] [place] [address] Oct, [address] [address] Oct, [place] [address] [address] Oct, [place] [address] [address] Oct, [place] [id number] [place] [address] Oct, Flu-like symptoms R68.89 and COPD with acute exacerbation J44.1 [place] [id number] [place] [address] Oct, [place] [id number] [place] [address] Oct, Left shoulder pain M25.512 ; Chronic headaches R51 ; Environmental allergies Z91.09 ; GERD (gastroesophageal reflux disease) K21.9 ; Insomnia G47.00 ; Hypertension I10 ; Depression F32.9 and 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 [place] [id number] [place] [address] Sep, [place] [id number] [place] [address] Sep, COPD (chronic obstructive pulmonary disease) J44.9 [place] [id number] [place] [address] Sep, Bronchitis J40 [place] [address] [address] Aug, Cervicalgia 723.1 ; Chronic hepatitis C without mention of hepatic coma 070.54 ; Essential hypertension 401.9 ; Chronic headaches R51 ; Environmental allergies Z91.09 ; GERD (gastroesophageal reflux disease) K21.9 ; Insomnia G47.00 ; Depression F32.9 and COPD (chronic obstructive pulmonary disease) J44.9 [place] [address] [address] Jul, Essential hypertension 401.9 ; Hypertension I10 ; Depression F32.9 ; Anxiety F41.9 ; Chronic headaches R51 and Cervicalgia M54.[address] [address] Jul, Essential hypertension 401.9 and Anxiety F41.[address] [address] Jul, [address] [address] Jul, [address] [address] Jul, Insomnia G47.00 ; GERD (gastroesophageal reflux disease) K21.9 ; Essential hypertension 401.9 ; Bipolar I disorder, most recent episode (or current) depressed, moderate 296.52 ; Hepatitis C B19.20 ; Depression F32.9 ; Hypertension I10 ; 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 ; Chronic headaches R51 and Chronic pain G89.29 [place] [id number] [place] [address] Jun, [address] [address] Jun, Chronic headaches R51 ; Environmental allergies Z91.09 ; GERD (gastroesophageal reflux disease) K21.9 ; Insomnia G47.00 ; Hepatitis C B19.20 ; Hypertension I10 ; Depression F32.9 ; 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 and Chronic pain G89.29 [place] [id number] [place] [address] Jun, [address] [address] Jun, Vision changes H53.[address] [address] Apr, [address] [address] Apr, Bipolar I disorder, most recent episode (or current) depressed, moderate 296.52 ; Other chronic pain 338.29 ; Chronic hepatitis C without mention of hepatic coma 070.54 ; Essential hypertension 401.9 ; Environmental allergies V15.09 and GERD (gastroesophageal reflux disease) 530.81 [place] [id number] [place] [address] Mar, [address] [address] Mar, [place] [id number] [place] [address] Mar, [address] [address] Mar, [place] [id number] [place] [address] Mar, [address] [address] Feb, Routine gynecological examination V72.31 ; Breast cancer screening V76.10 and Tobacco abuse 305.[address] [address] Feb, [address] [id number] [address] January, [facility] [address] [place] [address] January, [facility] [address], [place] [address] January, [facility] [id number] [place] [address] January, [facility] [address] [place] [address] January, Mood disorder 296.90 and Anxiety 300.00 [facility] [id number] [place] [address] January, [facility] [id number] [place] [address] Dec, Headache 784.0 ; Other chronic pain 338.29 and Cervicalgia 723.1 [facility] [address], [place] [address] Dec, [facility] [id number] [address] Dec, [facility] [address], [place] [address] Nov, [facility] [address], [place] [address] Nov, [facility] [address], [place] [address] Oct, [facility] [address], [place] [address] Oct, [facility] [address], [place] [address] Oct, [facility] [address], [place] [address] Oct, [facility] [place] [facility] [address] [id number] [place] [address] Oct, [facility] [place] [facility] [address] [id number] [place] [address] 20 Oct, 2014 [facility] [place] [facility] [address] [facility] [id number] [place] [address] Oct, 2014 [facility] [place] [facility] [address] [id number] [place] [address] Oct, 2014 [facility] [place] [facility] [address] [id number] [place] [address] Oct, [facility] [place] [facility] [address] [facility] [id number] [place] [address] 18 Oct, 2014 [facility] [place] [facility] [address] [facility] [id number] [place] [address] Oct, [facility] [place] [facility] [address] [facility] [id number] [place] [address] Oct, [facility] [place] [facility] [address] [facility] [id number] [place] [address] Sep, [facility] [place] [facility] [address] [facility] [id number] [place] [address] Sep, [facility] [place] [facility] [address] [facility] [id number] [place] [address] Sep, [facility] [place] [facility] [address] [facility] [id number], [place] [address] 15 Sep, 2014 [facility] [place] [facility] [address] [id number], [place] [address] 15 Sep, 2014 [facility] [place] [facility] [address] [facility] [id number], [place] [address] 14 Sep, 2014 [facility] [place] [facility] [address] [facility] [id number] [place] [address] 14 Sep, 2014 [facility] [place] [facility] [address] [id number] [place] [address] 14 Sep, 2014 [facility] [place] [facility] [address] [id number] [place] [address] Sep, [facility] [place] [facility] [address] [id number] [place] [address] Sep, [facility] [place] [facility] [address] [id number] [place] [address] Sep, [facility] [place] [facility] [address] [id number] [place] [address] Sep, [facility] [place] [facility] [address] [id number] [place] [address] Sep, [facility] [place] [facility] [address] [id number] [place] [address] Sep, [facility] [place] [facility] [address] [id number] [place] [address] Aug, [facility] [place] [facility] [address] [id number] [place] [address] Aug, [facility] [place] [facility] [address] [id number] [place] [address] Aug, [facility] [place] [facility] [address] [id number] [place] [address] Aug, [facility] [place] [facility] [address] [id number] [place] [address] Aug, [facility] [place] [facility] [address] [id number] [place] [address] Aug, [facility] [place] [facility] [address] [id number] [place] [address] Aug, [facility] [place] [facility] [address] [id number] [place] [address] Aug, [facility] [place] [facility] [address] [id number] [place] [address] Aug, [facility] [place] [facility] [address] [id number] [place] [address] Aug, [facility] [place] [facility] [address] [id number] [place] [address] Aug, [facility] [place] [facility] [address] [id number] [place] [address] Aug, [facility] [place] [facility] [address] [id number] [place] [address] Aug, [facility] [place] [facility] [address] [id number] [place] [address] Jul, [facility] [place] [facility] [address] [id number] [place] [address] Jul, [facility] [place] [facility] [address] [id number] [place] [address] Feb, [facility] [place] [facility] [address] [id number] [place] [address] Feb, [facility] [place] [facility] [address] [id number] [place] [address] January, [facility] [place] [facility] [address] [id number] [place] [address] January, [facility] [place] [facility] [address] [id number] [place] [address] January, [facility] [place] [facility] [address] [id number] [place] [address] January, [facility] [place] [facility] [address] [id number] [place] [address] Nov, [facility] [place] [facility] [address] [id number] [place] [address] Nov, [facility] [place] [facility] [address] [id number] [place] [address] Nov, [facility] [place] [facility] [address] [id number] [place] [address] Nov, [facility] [address] [id number] [place] [address] Oct, [facility] [address] [id number] [place] [address] Oct, [facility] [address] [id number] [place] [address] Sep, [facility] [address] [id number] [place] [address] Sep, [facility] [address] [id number] [place] [address] Sep, [facility] [address] [id number] [place] [address] Sep, [facility] [address] [id number] [place] [address] Aug, [facility] [address] [id number] [place] [address] Aug, [facility] [address] [id number] [place] [address] Aug, [facility] [address] [facility] [id number] [place] [address] Aug, [facility] [address] [id number] [place] [address] Aug, [facility] [address] [id number] [place] [address] Aug, [facility] [place] [facility] [address] [id number] [place] [address] Aug, [facility] [place] [facility] [address] [id number] [place] [address] Jul, [facility] [address] [id number] [place] [address] Jul, [facility] [place] [facility] [address] [id number] [place] [address] 19 Jul, 2013 [facility] [place] [facility] [address] [id number] [place] [address] Jul, [facility] [place] [facility] [address] [id number] [place] [address] Jul, [facility] [place] [facility] [address] [id number] [place] [address] Jul, [facility] [place] [facility] [address] [id number] [place] [address] Jul, [facility] [place] [facility] [address] [id number] [place] [address] Jun, [facility] [place] [facility] [address] [id number] [place] [address] Jun, [facility] [place] [facility] [address] [id number] [place] [address] Jun, [facility] [place] [facility] [address] [id number] [place] [address] Jun, [facility] [place] [facility] [address] [id number], [place] [address] Jul, [facility] [place] [facility] [address] [id number], [place] [address] 16 Jul, 2010 [facility] [place] [facility] [address] [id number], [place] [address] Jul, [facility] [place] [facility] [address] [id number], [place] [address] Jul, [facility] [place] [facility] [address] [id number], [place] [address] Jun, [facility] [place] [facility] [address] [id number], [place] [address] 31 Jun, 2009 [facility] [place] [facility] [address] [id number], [place] [address] Jun, [facility] [address] [facility] [id number], [place] [address] Jun, [facility] [address] [facility] [id number], [place] [address] Jun, [facility] [address] [facility] [id number], [place] [address] Mar, [place] [address] [facility] [id number], [place] [address] January, IMMUNIZATIONS No Known Immunizations SOCIAL HISTORY Never Assessed REASON FOR VISIT chronic pain management for med refills, belly button infected---dandre lyon PLAN OF CARE Activity Details Follow Up 3 Months Reason: VITAL SIGNS Height 65.2 in 2018-01-28 Weight 140.4 lbs 2018-01-28 Temperature 98.0 degrees Fahrenheit 2018-01-28 Heart Rate 65 bpm 2018-01-28 Respiratory Rate 18 2018-01-28 BMI 23.22 kg/m2 2018-01-28 Blood pressure systolic 146 mmHg 2018-01-28 Blood pressure diastolic 92 mmHg 2018-01-28 MEDICATIONS Medication Instructions Dosage Frequency Start Date End Date Duration Status Oxycodone-Acetaminophen 5-325 MG Orally 3 times a day 1 tablet as needed 8h January, Feb, 30 days Active ProAir HFA 108 (90 Base) MCG/ACT Inhalation every 4 hrs 2 puffs as needed 4h Mar, Active Crestor 10 MG Orally Once a day 1 tablet 24h Active Tizanidine HCl 4 MG Orally Three times a day 1 tablet as needed 8h May, 90 days Active Trazodone HCl 100MG Orally Once a day 1 tablet at bedtime 24h 90 days Active Premarin 0.9 MG Orally Once a day 1 tablet 24h May, 90 days Not-Taking Famotidine 20mg Orally 2 times a day TAKE ONE TABLET BY MOUTH TWICE DAILY 12h 30 Active Lisinopril 2.5 MG Orally Once a day 1 tablet 24h Active HydrOXYzine HCl 25 MG Orally every 8 hrs 1 tablet as needed 8h January, 90 days Active Venlafaxine HCl ER 75 MG Orally Once a day 1 capsule with food 24h May, 90 days Active Albuterol Sulfate (2.5 MG/3ML) 0.083% Inhalation Three times a day 3 ml 8h 15 Oct, 2015 Active EPINEPHrine 0.3 MG/0.3ML Injection PRN as directed Apr, Active Pantoprazole Sodium 40MG Orally Once a day 1 tablet 24h 90 Active Hydrochlorothiazide 25 MG Orally Once a day 1 tablet in the morning 24h Active Flonase 50 mcg/act Nasally Once a day 1 sprays by Nasal route 2 times per day in each nostril 24h Nov, 12 months Active Diflucan 150 MG Orally Once a day 1 tablet 24h January, 1 dose Active Tessalon Perles 100 mg Orally Three times a day 1 capsule as needed 8h Nov, Active Cetirizine HCl 10 mg Orally Once a day 1 tablet as needed 24h May, 90 days Active Symbicort 160-4.5 mcg/act Inhalation Twice a day inhale 2 puffs by Inhalation route in the morning and evening 2 times per day 12h 20 Jul, 2014 90 days Active Coreg 3.125 MG Orally 2 times a day 12h Active Montelukast Sodium 10 mg Orally Once a day TAKE ONE TABLET BY MOUTH ONCE DAILY 24h 90 days Active RESULTS No Results [...] Hospitalization History low blood pressure--via [facility] 12/2017
--- OUTSIDE RECORDS SUMMARY | 2019-04-09 01:38 | XMS REPORT ---
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 Active 30707021 Problem Menopause Z78.0 Active 454735122 Problem Postmenopausal HRT (hormone replacement therapy) Z79.890 Active 93966530 Problem COPD with acute exacerbation J44.1 Active 579508985 Problem Anxiety F41.9 Active 77578169 Problem Chest pain R07.9 Active 67687450 Problem Nausea R11.0 Active 387938498 Problem Chronic headaches R51 Active 968386147 Problem Environmental allergies Z91.09 Active 895732214 Problem Insomnia G47.00 Active 098789010 Problem Hepatitis C B19.20 Active 92872996 Problem Depression F32.9 Active 75735491 Problem Chronic pain G89.29 Active 21361876 Problem GERD (gastroesophageal reflux disease) K21.9 Active 041650407 ALLERGIES No Information ENCOUNTERS Encounter Location Date Diagnosis [facility] [address] [id number] [id number] Apr, [facility] [address] [address] Mar, Costochondral separation, initial encounter S23.29XA and Injury of toe on left foot, initial encounter S99.922A [facility] [id number] [id number] Mar, Chronic pain G89.29 [facility] [id number] [address] Feb, Poison elda L23.[id number] [place] [id number] Feb, Chronic pain G89.29 [facility] [id number] [place] [address] Feb, Bronchitis J40 [id number] [place] [id number] Feb, [id number] [place] [id number] Feb, Chronic pain G89.29 [id number] [place] [id number] January, Vaginal discharge N89.8 ; Increased urinary frequency R35.0 ; Acute cystitis with hematuria N30.01 ; Other specified bacterial agents as the cause of diseases classified elsewhere B96.89 and Acute vaginitis N76.0 [id number] [place] [id number] January, Chronic pain G89.29 and Candidiasis B37.9 [facility] [id number] [place] [address] January, [facility] [id number] [place] [address] Dec, Acute frontal sinusitis, recurrence not specified J01.10 and Cough R05 [id number] [place] [id number] Dec, [id number] [place] [address] [phone] Nov, [facility] [id number] [place] [address] Nov, Bronchitis J40 [address] [id number] Nov, [facility] [id number] [place] [address] Oct, COPD with acute exacerbation J44.1 [facility] [address] [id number] [id number] 12 Oct, 2017 Chronic pain G89.29 [facility] [id number] [place] [id number] 08 Oct, 2017 [facility] [id number] [id number] Sep, Chronic pain G89.29 ; Depression F32.9 ; Anxiety F41.9 ; 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 and Flu-like symptoms R68.89 [facility] [address] [id number] [address] Aug, Chronic pain G89.29 ; Open bite of other finger without damage to nail, initial encounter S61.258A and Bitten by dog, initial encounter W54.0XXA [place] [id number] [place] [address] Jul, Menopause Z78.0 ; Ankle swelling, unspecified laterality M25.473 ; Chronic pain G89.29 and Tobacco abuse Z72.0 [facility] [id number] [place] [address] Jun, [facility] [address] [address] Jun, Chronic pain G89.29 [facility] [id number] [place] [address] May, Dysuria R30.0 ; Dehydration E86.0 and Hypertension I10 [place] [address] [address] 19 May, 2017 Menopause Z78.0 ; Depression F32.9 ; Chronic pain G89.29 ; Environmental allergies Z91.09 ; 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 and Encounter for immunization Z23 [facility] [id number] [place] [address] 18 May, 2017 Chronic pain G89.29 [place] [address] [address] Apr, Chronic pain G89.29 [facility] [id number] [place] [address] Apr, Routine gynecological examination Z01.419 [facility] [id number] [place] [address] Mar, Chronic pain G89.29 [facility] [id number] [place] [address] Feb, [facility] [id number] [place] [address] Feb, Chronic pain G89.29 [facility] [id number] [place] [address] Feb, [facility] [id number] [place] [address] January, Chronic pain G89.29 [facility] [id number] [place] [address] January, Routine gynecological examination Z01.419 and Breast cancer screening Z12.39 [facility] [id number] [place] [address] January, Chronic pain G89.29 [facility] [id number] [place] [address] Dec, Postmenopausal HRT (hormone replacement therapy) Z79.890 [facility] [id number] [place] [address] Dec, [facility] [id number] [place] [address] Nov, Chronic pain G89.29 [facility] [id number] [place] [address] Nov, Chronic headaches R51 ; GERD (gastroesophageal reflux disease) K21.9 ; Hypertension I10 ; 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 ; Hepatitis C B19.20 ; Chronic pain G89.29 ; Pain of right thumb M79.644 ; Insomnia G47.00 ; Depression F32.9 ; Environmental allergies Z91.09 and Closed fracture of tuft of distal phalanx of finger, with routine healing, subsequent encounter S62.639D [facility] [id number] [place] [address] 15 Nov, 2016 [facility] [address] [address] Nov, [facility] [address] [address] Nov, [facility] [address] [address] Nov, Hypertension I10 [facility] [address] [address] Nov, [facility] [address] [address] Nov, [facility] [address] [address] Oct, Anxiety F41.9 [facility] [id number] [place] [address] Oct, [facility] [id number] [place] [address] Oct, Acute upper respiratory infection, unspecified J06.9 and Other viral agents as the cause of diseases classified elsewhere B97.89 [facility] [address] [address] Oct, [facility] [id number] [place] [address] Oct, Right acute serous otitis media, recurrence not specified H65.01 and Pharyngitis, unspecified etiology J02.9 [facility] [address] [address] Sep, [facility] [id number] [place] [address] Aug, Environmental allergies Z91.09 [facility] [address] [address] Aug, [facility] [id number] [place] [address] Jul, Atypical nevi D22.9 [facility] [id number] [place] [address] Jul, [facility] [id number] [place] [address] Jul, [facility] [id number] [place] [address] Jul, [facility] [id number] [address] Jun, [facility] [id number] [place] [address] May, [facility] [id number] [address] May, [facility] [id number] [address] May, [facility] [id number] [address] Apr, [facility] [address] [address] Apr, Chronic headaches R51 ; GERD (gastroesophageal reflux disease) K21.9 ; Hypertension I10 ; 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 ; Anxiety F41.9 ; COPD with acute exacerbation J44.1 ; Environmental allergies Z91.09 ; Depression F32.9 and Chronic pain G89.29 [facility] [id number] [place] [address] Feb, Chronic headaches R51 and Chronic pain G89.29 [address] [address] [address] January, Chronic pain G89.29 and Anxiety F41.9 [place] [address] [address] January, Depression F32.9 and Hypertension I10 [place] [id number] [place] [address] January, Chronic pain G89.29 [address] [address] [address] Dec, [place] [address] [address] Dec, [place] [address] [address] Dec, Chronic headaches R51 ; Chronic pain G89.29 ; Environmental allergies Z91.09 ; GERD (gastroesophageal reflux disease) K21.9 ; Insomnia G47.00 ; Hypertension I10 and COPD with acute exacerbation J44.1 [place] [id number] [place] [address] Dec, [place] [id number] [place] [address] Dec, Chest pain R07.9 ; GERD (gastroesophageal reflux disease) K21.9 and Nausea R11.0 [place] [id number] [place] [address] Nov, [place] [id number] [place] [address] Oct, COPD with acute exacerbation J44.1 ; Chronic headaches R51 ; GERD (gastroesophageal reflux disease) K21.9 ; Insomnia G47.00 ; Hypertension I10 ; Depression F32.9 and Anxiety F41.9 [place] [id number] [place] [address] Oct, [address] [address] [address] Oct, [place] [address] [address] Oct, [address] [address] Oct, [address] [address] Oct, Flu-like symptoms R68.89 and COPD with acute exacerbation J44.[address] [address] Oct, [address] [address] Oct, Left shoulder pain M25.512 ; Chronic headaches R51 ; Environmental allergies Z91.09 ; GERD (gastroesophageal reflux disease) K21.9 ; Insomnia G47.00 ; Hypertension I10 ; Depression F32.9 and 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 [id number] [place] [address] Sep, [address] [address] Sep, COPD (chronic obstructive pulmonary disease) J44.9 [id number] [place] [address] Sep, Bronchitis J40 [address] [address] Aug, Cervicalgia 723.1 ; Chronic hepatitis C without mention of hepatic coma 070.54 ; Essential hypertension 401.9 ; Chronic headaches R51 ; Environmental allergies Z91.09 ; GERD (gastroesophageal reflux disease) K21.9 ; Insomnia G47.00 ; Depression F32.9 and COPD (chronic obstructive pulmonary disease) J44.[address] [address] Jul, Essential hypertension 401.9 ; Hypertension I10 ; Depression F32.9 ; Anxiety F41.9 ; Chronic headaches R51 and Cervicalgia M54.[address] [address] Jul, Essential hypertension 401.9 and Anxiety F41.[address] [address] Jul, [address] [address] Jul, [address] [address] Jul, Insomnia G47.00 ; GERD (gastroesophageal reflux disease) K21.9 ; Essential hypertension 401.9 ; Bipolar I disorder, most recent episode (or current) depressed, moderate 296.52 ; Hepatitis C B19.20 ; Depression F32.9 ; Hypertension I10 ; 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 ; Chronic headaches R51 and Chronic pain G89.[address] [address] Jun, [address] [address] Jun, Chronic headaches R51 ; Environmental allergies Z91.09 ; GERD (gastroesophageal reflux disease) K21.9 ; Insomnia G47.00 ; Hepatitis C B19.20 ; Hypertension I10 ; Depression F32.9 ; 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 and Chronic pain G89.[address] [address] Jun, [address] [address] Jun, Vision changes H53.9 [facility] [address] [address] Apr, [facility] [id number] [place] [address] Apr, Bipolar I disorder, most recent episode (or current) depressed, moderate 296.52 ; Other chronic pain 338.29 ; Chronic hepatitis C without mention of hepatic coma 070.54 ; Essential hypertension 401.9 ; Environmental allergies V15.09 and GERD (gastroesophageal reflux disease) 530.81 [facility] [id number] [address] Mar, [facility] [id number] [place] [address] Mar, [facility] [id number] [place] [address] Mar, [facility] [id number] [place] [address] Mar, [facility] [id number] [place] [address] Mar, [facility] [id number] [place] [address] Feb, Routine gynecological examination V72.31 ; Breast cancer screening V76.10 and Tobacco abuse 305.1 [facility] [address] [address] Feb, [facility] [address] [address] January, [facility] [id number] [place] [address] January, [facility] [id number] [place] [address] January, [facility] [id number] [place] [address] January, [facility] [address] [address] January, Mood disorder 296.90 and Anxiety 300.00 [facility] [id number] [place] [address] January, [facility] [id number] [place] [address] Dec, Headache 784.0 ; Other chronic pain 338.29 and Cervicalgia 723.1 [facility] [id number] [place] [address] Dec, [facility] [id number] [place] [address] Dec, [facility] [id number] [place] [address] Nov, [facility] [id number] [place] [address] Nov, [facility] [id number] [place] [address] Oct, [facility] [id number] [place] [address] Oct, [facility] [id number] [address] Oct, [facility] [id number] [address] Oct, [facility] [address] [address] Oct, [facility] [id number] [place] [address] Oct, [facility] [address] [address] Oct, [facility] [place] [facility] [address] [id number] [place] [address] 19 Oct, 2014 [facility] [place] [facility] [address] [id number] [place] [address] 18 Oct, 2014 [facility] [place] [facility] [address] [id number] [place] [address] 18 Oct, 2014 [facility] [place] [facility] [address] [id number] [place] [address] 17 Oct, 2014 [facility] [place] [facility] [address] [id number] [place] [address] 17 Oct, 2014 [facility] [place] [facility] [address] [id number] [place] [address] 20 Sep, 2014 [facility] [place] [facility] [address] [id number] [place] [address] Sep, [facility] [place] [facility] [address] [id number] [place] [address] Sep, [facility] [place] [facility] [address] [id number] [place] [address] 15 Sep, 2014 [facility] [place] [facility] [address] [id number] [place] [address] 15 Sep, 2014 [facility] [place] [facility] [address] [id number] [place] [address] 14 Sep, 2014 [facility] [place] [facility] [address] [id number] [place] [address] Sep, [facility] [place] [facility] [address] [id number] [place] [address] Sep, [facility] [place] [facility] [address] [id number] [place] [address] 14 Sep, 2014 [facility] [place] [facility] [address] [id number] [place] [address] 09 Sep, 2014 [facility] [place] [facility] [address] [id number] [place] [address] Sep, [facility] [place] [facility] [address] [id number] [place] [address] Sep, [facility] [place] [facility] [address] [id number] [place] [address] Sep, [facility] [place] [facility] [address] [id number] [place] [address] Sep, [facility] [place] [facility] [address] [id number] [place] [address] Aug, [facility] [place] [facility] [address] [id number] [place] [address] Aug, [facility] [place] [facility] [address] [id number] [place] [address] Aug, [facility] [place] [facility] [address] [id number] [place] [address] Aug, [facility] [place] [facility] [address] [id number] [place] [address] Aug, [facility] [place] [facility] [address] [id number] [place] [address] Aug, [facility] [place] [facility] [address] [id number] [place] [address] Aug, [facility] [place] [facility] [address] [id number] [place] [address] Aug, [facility] [place] [facility] [address] [id number] [place] [address] Aug, [facility] [place] [facility] [address] [id number] [place] [address] Aug, [facility] [place] [facility] [address] [id number] [place] [address] Aug, [facility] [place] [facility] [address] [id number] [place] [address] Aug, [facility] [place] [facility] [address] [id number] [place] [address] Aug, [facility] [place] [facility] [address] [id number] [place] [address] Jul, [facility] [place] [facility] [address] [id number] [place] [address] Jul, [facility] [place] [facility] [address] [id number] [place] [address] Feb, [facility] [place] [facility] [address] [id number] [place] [address] Feb, [facility] [place] [facility] [address] [id number] [place] [address] January, [facility] [place] [facility] [address] [id number] [place] [address] January, [facility] [place] [facility] [address] [id number] [place] [address] January, [facility] [place] [facility] [address] [id number] [place] [address] January, [facility] [place] [facility] [address] [id number] [place] [address] Nov, [facility] [place] [facility] [address] [id number] [place] [address] Nov, [facility] [place] [facility] [address] [id number] [place] [address] Nov, [facility] [place] [facility] [address] [id number] [place] [address] Nov, [facility] [place] [facility] [address] [id number] [place] [address] Oct, [facility] [place] [facility] [address] [id number] [place] [address] Oct, [facility] [place] [facility] [address] [id number] [place] [address] Sep, [facility] [address] [id number] [place] [address] Sep, [facility] [place] [facility] [address] [id number] [place] [address] Sep, [facility] [place] [facility] [address] [id number] [place] [address] Sep, [facility] [place] [facility] [address] [id number] [place] [address] Aug, [facility] [place] [facility] [address] [id number] [place] [address] Aug, [facility] [place] [facility] [address] [id number] [place] [address] Aug, [facility] [place] [facility] [address] [id number] [place] [address] Aug, [facility] [place] [facility] [address] [id number] [place] [address] Aug, [facility] [place] [facility] [address] [id number] [place] [address] Aug, [facility] [place] [facility] [address] [id number] [place] [address] Aug, [facility] [place] [facility] [address] [id number] [address] Jul, [facility] [place] [facility] [address] [id number] [address] Jul, [facility] [place] [facility] [address] [id number] [place] [address] Jul, [facility] [place] [facility] [address] [id number] [address] Jul, [facility] [place] [facility] [address] [id number] [place] [address] Jul, [facility] [place] [facility] [address] [id number] [place] [address] 12 Jul, 2013 [facility] [place] [facility] [address] [id number] [place] [address] 08 Jul, 2013 [facility] [place] [facility] [address] [id number] [place] [address] 31 Jun, 2013 [facility] [place] [facility] [address] [id number] [place] [address] 30 Jun, 2013 [facility] [place] [facility] [address] [id number] [place] [address] 30 Jun, 2013 [facility] [place] [facility] [address] [id number] [place] [address] Jun, [facility] [place] [facility] [address] [id number] [place] [address] 24 Jul, 2010 [facility] [place] [facility] [address] [id number] [place] [address] 16 Jul, 2010 [facility] [place] [facility] [address] [id number] [place] [address] 10 Jul, 2010 [facility] [place] [facility] [address] [id number] [place] [address] Jul, [facility] [place] [facility] [address] [facility] [id number] [place] [address] Jun, [facility] [place] [facility] [address] [address] [id number] [place] [address] 31 Jun, 2009 [facility] [place] [facility] [address] [id number] [place] [address] 29 Jun, 2009 [facility] [place] [facility] [address] [id number] [place] [address] 28 Jun, 2009 [facility] [place] [facility] [address] [facility] [id number] [place] [address] 15 Jun, 2009 [facility] [place] [facility] [address] [facility] [id number] [address] 16 Mar, 2009 [facility] [place] [facility] [address] [facility] [id number] [place] [address] January, IMMUNIZATIONS No Known Immunizations SOCIAL HISTORY Never Assessed REASON FOR VISIT Controlled Med Refill PLAN OF CARE VITAL SIGNS MEDICATIONS Unknown [...] History child Hospitalization History low blood pressure--via [facility] 12/2017
--- OUTSIDE RECORDS SUMMARY | 2019-04-09 01:39 | XMS REPORT ---
Author Author ODIN BRODERICK [facility] Address [address] [place] [address] Care Team Providers Care Sas Clinical Programmer Name Role Phone ODIN BRODERICK Unavailable PROBLEMS Type Condition ICD9-CM Code SSB80-NU Code Onset Dates Condition Status SNOMED Code Problem Hypertension I10 Active 64906471 Problem Cervicalgia M54.2 Active 996020783 Problem COPD (chronic obstructive pulmonary disease) with emphysema J43.9 Active 76397926 Problem Menopause Z78.0 Active 607184600 Problem Postmenopausal HRT (hormone replacement therapy) Z79.890 Active 58118656 Problem COPD with acute exacerbation J44.1 Active 843887641 Problem Anxiety F41.9 Active 92773548 Problem Chest pain R07.9 Active 59180532 Problem Nausea R11.0 Active 633264872 Problem Chronic headaches R51 Active 362468888 Problem Environmental allergies Z91.09 Active 981905309 Problem Insomnia G47.00 Active 185112014 Problem Hepatitis C B19.20 Active 17581749 Problem Depression F32.9 Active 55281601 Problem Chronic pain G89.29 Active 34619146 Problem GERD (gastroesophageal reflux disease) K21.9 Active 780376851 ALLERGIES Substance Reaction Event Type Date Status Zoloft hypotension Drug Allergy Dec, Active Wellbutrin jittery Drug Allergy Dec, Active Tramadol HCl anaphylaxis Drug Allergy Dec, Active Tetracycline HCl rash Drug Allergy Dec, Active Sulfamethoxazole-Trimethoprim Unknown Drug Allergy Dec, Active Penicillin V Potassium rash Drug Allergy Dec, Active Morphine Sulfate anaphylaxis Drug Allergy Dec, Active Doxycycline Hyclate rash Drug Allergy Dec, Active Wasp/hornet/bee stings anaphylaxis Non Drug Allergy Dec, Active ENCOUNTERS Encounter Location Date Diagnosis [facility] [address] [id number] [address] Mar, Costochondral separation, initial encounter S23.29XA and Injury of toe on left foot, initial encounter S99.922A [address] [id number] Mar, Chronic pain G89.29 [facility] [address] [address] Feb, Poison elda L23.[address] [id number] Feb, Chronic pain G89.29 [facility] [address] [address] Feb, Bronchitis J40 [address] [id number] Feb, [address] [id number] Feb, Chronic pain G89.[address] [id number] January, Vaginal discharge N89.8 ; Increased urinary frequency R35.0 ; Acute cystitis with hematuria N30.01 ; Other specified bacterial agents as the cause of diseases classified elsewhere B96.89 and Acute vaginitis N76.[address] [id number] January, Chronic pain G89.29 and Candidiasis B37.9 [facility] [address] [address] January, [facility] [address] [address] Dec, Acute frontal sinusitis, recurrence not specified J01.10 and Cough R05 [address] [id number] Dec, [address] [id number] Nov, [facility] [address] [address] Nov, Bronchitis J40 [facility] [address] [id number] [id number] Nov, [facility] [id number] [place] [address] Oct, COPD with acute exacerbation J44.1 [facility] [id number] [place] [id number] Oct, Chronic pain G89.29 [facility] [address] [id number] [place] [id number] Oct, [facility] [id number] [place] [address] [id number] Sep, Chronic pain G89.29 ; Depression F32.9 ; Anxiety F41.9 ; 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 and Flu-like symptoms R68.89 [facility] [place] [address] [id number] [place] [address] Aug, Chronic pain G89.29 ; Open bite of other finger without damage to nail, initial encounter S61.258A and Bitten by dog, initial encounter W54.0XXA [place] [id number] [place] [address] Jul, Menopause Z78.0 ; Ankle swelling, unspecified laterality M25.473 ; Chronic pain G89.29 and Tobacco abuse Z72.0 [facility] [id number] [place] [address] Jun, [facility] [address] [place] [id number] [place] [address] Jun, Chronic pain G89.29 [facility] [id number] [place] [address] May, Dysuria R30.0 ; Dehydration E86.0 and Hypertension I10 [place] [id number] [place] [address] May, Menopause Z78.0 ; Depression F32.9 ; Chronic pain G89.29 ; Environmental allergies Z91.09 ; 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 and Encounter for immunization Z23 [facility] [id number] [place] [address] May, Chronic pain G89.29 [facility] [id number] [place] [address] Apr, Chronic pain G89.29 [facility] [address] [address] Apr, Routine gynecological examination Z01.419 [facility] [address] [id number] [place] [address] Mar, Chronic pain G89.29 [facility] [id number] [place] [address] Feb, [facility] [id number] [place] [address] Feb, Chronic pain G89.29 [facility] [id number] [place] [address] Feb, [facility] [id number] [place] [address] January, Chronic pain G89.29 [facility] [address] [place] [address] January, Routine gynecological examination Z01.419 and Breast cancer screening Z12.39 [facility] [id number] [place] [address] January, Chronic pain G89.29 [facility] [id number] [place] [address] Dec, Postmenopausal HRT (hormone replacement therapy) Z79.890 [facility] [id number] [place] [address] Dec, [facility] [id number] [place] [address] 31 Nov, 2016 Chronic pain G89.29 [place] [address] [address] 30 Nov, 2016 Chronic headaches R51 ; [...] finger, with routine healing, subsequent encounter S62.639D [place] [address] [address] 15 Nov, 2016 [place] [address] [address] Nov, [place] [address] [address] Nov, [place] [address] [place] [id number] [place] [address] Nov, Hypertension I10 [place] [address] [place] [address] [id number] [place] [address] Nov, [place] [address] [place] [address] [id number] [place] [address] Nov, [place] [address] [address] [id number] [place] [address] Oct, Anxiety F41.9 [place] [address] [address] [id number] [place] [address] Oct, [place] [id number] [place] [address] Oct, Acute upper respiratory infection, unspecified J06.9 and Other viral agents as the cause of diseases classified elsewhere B97.[address] [place] [address] Oct, [facility] [id number] [place] [address] Oct, Right acute serous otitis media, recurrence not specified H65.01 and Pharyngitis, unspecified etiology J02.9 [facility] [id number] [place] [address] Sep, [facility] [id number] [place] [address] Aug, Environmental allergies Z91.09 [facility] [id number] [place] [address] Aug, [facility] [id number] [place] [address] Jul, Atypical nevi D22.9 [facility] [id number] [place] [address] Jul, [facility] [id number] [place] [address] Jul, [facility] [id number] [place] [address] Jul, [facility] [address] [place] [address] Jun, [facility] [id number] [place] [address] May, [facility] [address] [place] [address] 13 May, 2016 [facility] [id number] [place] [address] 09 May, 2016 [facility] [address] [address] Apr, [facility] [id number] [place] [address] Apr, Chronic headaches R51 ; GERD (gastroesophageal reflux disease) K21.9 ; Hypertension I10 ; 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29 [place] [address] [place] [address] [id number] [place] [address] Dec, [place] [address] [address] Dec, [facility] [id number] [place] [address] Dec, Chronic headaches R51 ; Chronic pain G89.29 ; Environmental allergies Z91.09 ; GERD (gastroesophageal reflux disease) K21.9 ; Insomnia G47.00 ; Hypertension I10 and COPD with acute exacerbation J44.1 [place] [address] [place] [address] [id number] [place] [address] Dec, [place] [address] [address] Dec, Chest pain R07.9 ; GERD (gastroesophageal reflux disease) K21.9 and Nausea R11.0 [place] [address] [place] [address] [id number] [place] [address] Nov, [place] [address] [place] [id number] [place] [address] Oct, COPD with acute exacerbation J44.1 ; Chronic headaches R51 ; GERD (gastroesophageal reflux disease) K21.9 ; Insomnia G47.00 ; Hypertension I10 ; Depression F32.9 and Anxiety F41.9 [place] [address] [place] [id number] [place] [address] Oct, [place] [address] [address] [id number] [place] [address] Oct, [place] [address] [address] Oct, [place] [address] [address] Oct, [place] [address] [address] Oct, Flu-like symptoms R68.89 and COPD with acute exacerbation J44.1 [place] [address] [place] [id number] [place] [address] Oct, [place] [address] [address] [address] [place] [address] Oct, Left shoulder pain M25.512 ; Chronic headaches R51 ; Environmental allergies Z91.09 ; GERD (gastroesophageal reflux disease) K21.9 ; Insomnia G47.00 ; Hypertension I10 ; Depression F32.9 and 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 [place] [address] [place] [address] [id number] [place] [address] Sep, [address] [address] Sep, COPD (chronic obstructive pulmonary disease) J44.9 [place] [address] [place] [id number] [place] [address] Sep, Bronchitis J40 [place] [id number] [place] [address] Aug, Cervicalgia 723.1 ; Chronic hepatitis C without mention of hepatic coma 070.54 ; Essential hypertension 401.9 ; Chronic headaches R51 ; Environmental allergies Z91.09 ; GERD (gastroesophageal reflux disease) K21.9 ; Insomnia G47.00 ; Depression F32.9 and COPD (chronic obstructive pulmonary disease) J44.[address] [address] Jul, Essential hypertension 401.9 ; Hypertension I10 ; Depression F32.9 ; Anxiety F41.9 ; Chronic headaches R51 and Cervicalgia M54.[address] [address] Jul, Essential hypertension 401.9 and Anxiety F41.[address] [address] Jul, [address] [address] Jul, [address] [address] Jul, Insomnia G47.00 ; GERD (gastroesophageal reflux disease) K21.9 ; Essential hypertension 401.9 ; Bipolar I disorder, most recent episode (or current) depressed, moderate 296.52 ; Hepatitis C B19.20 ; Depression F32.9 ; Hypertension I10 ; 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 ; Chronic headaches R51 and Chronic pain G89.[address] [address] Jun, [address] [address] Jun, Chronic headaches R51 ; Environmental allergies Z91.09 ; GERD (gastroesophageal reflux disease) K21.9 ; Insomnia G47.00 ; Hepatitis C B19.20 ; Hypertension I10 ; Depression F32.9 ; 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 and Chronic pain G89.29 [facility] [id number] [place] [address] Jun, [facility] [address] [id number] [place] [address] Jun, Vision changes H53.9 [facility] [address] [address] Apr, [facility] [address] [address] Apr, Bipolar I disorder, most recent episode (or current) depressed, moderate 296.52 ; Other chronic pain 338.29 ; Chronic hepatitis C without mention of hepatic coma 070.54 ; Essential hypertension 401.9 ; Environmental allergies V15.09 and GERD (gastroesophageal reflux disease) 530.81 [place] [address] [address] Mar, [facility] [address] [id number] [place] [address] Mar, [facility] [address] [address] Mar, [facility] [address] [id number] [place] [address] Mar, [facility] [address] [id number] [place] [address] Mar, [facility] [address] [place] [id number] [place] [address] Feb, Routine gynecological examination V72.31 ; Breast cancer screening V76.10 and Tobacco abuse 305.1 [facility] [address] [id number] [place] [address] Feb, [facility] [address] [place] [id number] [place] [address] January, [facility] [address] [address] January, [facility] [address] [place] [address] January, [facility] [address] [address] January, [facility] [id number] [place] [address] January, Mood disorder 296.90 and Anxiety 300.00 [facility] [address] [place] [address] January, [facility] [id number] [place] [address] Dec, Headache 784.0 ; Other chronic pain 338.29 and Cervicalgia 723.1 [facility] [address] [id number] [place] [address] Dec, [facility] [address] [address] Dec, [facility] [address] [address] Nov, [facility] [address] [address] Nov, [facility] [address] [address] Oct, [facility] [address] [address] Oct, [facility] [address] [address] Oct, [facility] [address] [address] Oct, [facility] [address] [address] 20 Oct, 2014 [facility] [place] [facility] [address] [id number] [place] [address] Oct, [facility] [place] [facility] [address] [id number] [place] [address] 19 Oct, 2014 [facility] [place] [facility] [address] [facility] [id number] [place] [address] 19 Oct, 2014 [facility] [place] [facility] [address] [id number] [place] [address] 18 Oct, 2014 [facility] [place] [facility] [address] [id number] [place] [address] 18 Oct, 2014 [facility] [place] [facility] [address] [facility] [id number] [place] [address] 17 Oct, 2014 [facility] [place] [facility] [address] [facility] [id number] [place] [address] 17 Oct, 2014 [facility] [place] [facility] [address] [facility] [id number] [place] [address] Sep, [facility] [place] [facility] [address] [facility] [id number] [place] [address] Sep, [facility] [place] [facility] [address] [facility] [id number] [place] [address] 19 Sep, 2014 [facility] [place] [facility] [address] [facility] [id number] [address] 15 Sep, 2014 [facility] [place] [facility] [address] [facility] [id number] [address] 15 Sep, 2014 [facility] [place] [facility] [address] [facility] [id number] [address] 14 Sep, 2014 [facility] [place] [facility] [address] [facility] [id number] [address] 14 Sep, 2014 [facility] [place] [facility] [address] [facility] [id number] [address] 14 Sep, 2014 [facility] [place] [facility] [address] [id number] [place] [address] Sep, [facility] [place] [facility] [address] [id number] [place] [address] Sep, [facility] [place] [facility] [address] [id number] [place] [address] Sep, [facility] [place] [facility] [address] [id number] [place] [address] Sep, [facility] [place] [facility] [address] [id number] [place] [address] Sep, [facility] [place] [facility] [address] [id number] [place] [address] Sep, [facility] [place] [facility] [address] [id number] [place] [address] Aug, [facility] [place] [facility] [address] [id number] [place] [address] Aug, [facility] [place] [facility] [address] [id number] [place] [address] Aug, [facility] [place] [facility] [address] [id number] [place] [address] Aug, [facility] [place] [facility] [address] [id number] [place] [address] Aug, [facility] [place] [facility] [address] [id number] [place] [address] Aug, [facility] [place] [facility] [address] [id number] [place] [address] Aug, [facility] [place] [facility] [address] [id number] [place] [address] Aug, [facility] [place] [facility] [address] [id number] [place] [address] Aug, [facility] [place] [facility] [address] [id number] [place] [address] Aug, [facility] [place] [facility] [address] [id number] [place] [address] Aug, [facility] [place] [facility] [address] [id number] [place] [address] Aug, [facility] [place] [facility] [address] [id number] [place] [address] Aug, [facility] [place] [facility] [address] [id number] [place] [address] Jul, [facility] [place] [facility] [address] [id number] [place] [address] Jul, [facility] [place] [facility] [address] [id number] [place] [address] Feb, [facility] [place] [facility] [address] [id number] [place] [address] Feb, [facility] [place] [facility] [address] [id number] [place] [address] January, [facility] [place] [facility] [address] [id number] [place] [address] January, [facility] [place] [facility] [address] [id number] [place] [address] January, [facility] [place] [facility] [address] [id number] [place] [address] January, [facility] [place] [facility] [address] [id number] [address] Nov, [facility] [place] [facility] [address] [id number] [place] [address] Nov, [facility] [place] [facility] [address] [id number] [place] [address] Nov, [facility] [place] [facility] [address] [id number] [place] [address] Nov, [facility] [place] [facility] [address] [id number] [place] [address] Oct, [facility] [address] [id number] [place] [address] Oct, [facility] [address] [id number] [place] [address] Sep, [facility] [address] [id number] [place] [address] Sep, [facility] [address] [id number] [place] [address] Sep, [facility] [address] [id number] [place] [address] Sep, [facility] [address] [id number] [place] [address] Aug, [facility] [address] [id number] [place] [address] Aug, [facility] [address] [id number] [place] [address] Aug, [facility] [address] [id number] [place] [address] Aug, [facility] [address] [facility] [id number] [place] [address] Aug, [facility] [address] [id number] [place] [address] Aug, [facility] [address] [id number] [place] [address] Aug, [facility] [place] [facility] [address] [id number] [place] [address] Jul, [facility] [place] [facility] [address] [id number] [place] [address] Jul, [facility] [address] [id number] [place] [address] Jul, [facility] [place] [facility] [address] [id number] [place] [address] 13 Jul, 2013 [facility] [place] [facility] [address] [id number] [place] [address] Jul, [facility] [place] [facility] [address] [id number] [place] [address] Jul, [facility] [place] [facility] [address] [id number] [place] [address] Jul, [facility] [place] [facility] [address] [id number] [place] [address] Jun, [facility] [place] [facility] [address] [id number] [place] [address] Jun, [facility] [place] [facility] [address] [id number] [place] [address] Jun, [facility] [place] [facility] [address] [id number] [address] Jun, [facility] [place] [facility] [address] [id number] [place] [address] Jul, [facility] [place] [facility] [address] [id number] [place] [address] 16 Jul, 2010 [facility] [place] [facility] [address] [id number] [address] Jul, [facility] [place] [facility] [address] [id number] [place] [address] Jul, [facility] [place] [facility] [address] [id number] [place] [address] Jun, [facility] [place] [facility] [address] [id number] [place] [address] Jun, [facility] [place] [facility] [address] [id number] [place] [address] 29 Jun, 2009 [facility] [place] [facility] [address] [id number] [place] [address] Jun, [facility] [address] [facility] [id number] [place] [address] Jun, [facility] [address] [facility] [id number] [place] [address] Mar, [facility] [address] [facility] [id number] [place] [address] January, IMMUNIZATIONS No Known Immunizations SOCIAL HISTORY Never Assessed REASON FOR VISIT cough, chest congestion, sinus pressure. been sick for 2 days. [email or web address] PLAN OF CARE Activity Details Follow Up prn Reason: VITAL SIGNS Height 65.2 in 2018-01-08 Weight 139.6 lbs 2018-01-08 Temperature 97.6 degrees Fahrenheit 2018-01-08 Heart Rate 74 bpm 2018-01-08 Respiratory Rate 20 2018-01-08 BMI 23.09 kg/m2 2018-01-08 Blood pressure systolic 146 mmHg 2018-01-08 Blood pressure diastolic 86 mmHg 2018-01-08 MEDICATIONS Medication Instructions Dosage Frequency Start Date End Date Duration Status Pantoprazole Sodium 40MG Orally Once a day 1 tablet 24h 90 Active Albuterol Sulfate (2.5 MG/3ML) 0.083% Inhalation Three times a day 3 ml 8h Oct, Active HydrOXYzine HCl 25 MG Orally every 8 hrs 1 tablet as needed 8h January, 90 days Active EPINEPHrine 0.3 MG/0.3ML Injection PRN as directed Apr, Active Tizanidine HCl 4 MG Orally Three times a day 1 tablet as needed 8h May, May, 90 days Active Venlafaxine HCl ER 75 MG Orally Once a day 1 capsule with food 24h May, 90 days Active Crestor 10 MG Orally Once a day 1 tablet 24h Active ProAir HFA 108 (90 Base) MCG/ACT Inhalation every 4 hrs 2 puffs as needed 4h Mar, Active Lisinopril 10MG Orally Once a day 1 tablet 24h 90 days Active Montelukast Sodium 10 mg Orally Once a day TAKE ONE TABLET BY MOUTH ONCE DAILY 24h 90 days Active Flonase 50 mcg/act Nasally Once a day 1 sprays by Nasal route 2 times per day in each nostril 24h Nov, 12 months Active Trazodone HCl 100MG Orally Once a day 1 tablet at bedtime 24h 90 days Active Premarin 0.9 MG Orally Once a day 1 tablet 24h 19 May, 2017 90 days Active Tessalon Perles 100 mg Orally Three times a day 1 capsule as needed 8h 09 Nov, 2017 Not-Taking Cetirizine HCl 10 mg Orally Once a day 1 tablet as needed 24h 14 May, 2018 90 days Active Keflex 500 mg Orally every 12 hrs 1 capsule 12h 20 Dec, 2017 30 Dec, 2017 10 day(s) Active Symbicort 160-4.5 mcg/act Inhalation Twice a day inhale 2 puffs by Inhalation route in the morning and evening 2 times per day 12h 20 Jul, 2014 90 days Active Famotidine 20mg Orally 2 times a day TAKE ONE TABLET BY MOUTH TWICE DAILY 12h 30 Active Percocet 5-325 MG Orally 3 times a day 1 tablet as needed 8h 10 Dec, 2017 28 days Active RESULTS No Results PROCEDURES [...] History child Hospitalization History low blood pressure--via [facility] 12/2017
--- OUTSIDE RECORDS SUMMARY | 2019-04-09 01:40 | XMS REPORT ---
Author Author SHABANA DELGADO [facility] Address [address] [place] [address] Care Team Providers Care Entry Level Paralegal Name Role Phone WILMABRITNEYSHABANA Mims Unavailable PROBLEMS Type Condition ICD9-CM Code ZCO05-QD Code Onset Dates Condition Status SNOMED Code Problem Hypertension I10 Active 41048330 Problem Cervicalgia M54.2 Active 675415390 Problem COPD (chronic obstructive pulmonary disease) with emphysema J43.9 Active 51232553 Problem Menopause Z78.0 Active 157123903 Problem Postmenopausal HRT (hormone replacement therapy) Z79.890 Active 77792876 Problem COPD with acute exacerbation J44.1 Active 374619800 Problem Anxiety F41.9 Active 13937136 Problem Chest pain R07.9 Active 32637689 Problem Nausea R11.0 Active 137747872 Problem Chronic headaches R51 Active 433809357 Problem Environmental allergies Z91.09 Active 736007640 Problem Insomnia G47.00 Active 192983731 Problem Hepatitis C B19.20 Active 54330007 Problem Depression F32.9 Active 29310573 Problem Chronic pain G89.29 Active 98568021 Problem GERD (gastroesophageal reflux disease) K21.9 Active 415254053 ALLERGIES No Information ENCOUNTERS Encounter Location Date Diagnosis [facility] [id number] [place] [id number] Mar, Chronic pain G89.29 [facility] [address] [address] Feb, Poison elda L23.7 [place] [id number] [place] [address] [id number] Feb, Chronic pain G89.29 [facility] [address] [place] [address] Feb, Bronchitis J40 [address] [id number] [id number] Feb, [place] [id number] [place] [address] [id number] Feb, Chronic pain G89.29 [place] [id number] [place] [address] [id number] January, Vaginal discharge N89.8 ; Increased urinary frequency R35.0 ; Acute cystitis with hematuria N30.01 ; Other specified bacterial agents as the cause of diseases classified elsewhere B96.89 and Acute vaginitis N76.0 [place] [id number] [place] [address] [id number] January, Chronic pain G89.29 and Candidiasis B37.9 [place] [id number] [place] [address] January, [facility] [address] [place] [id number] [place] [address] Dec, Acute frontal sinusitis, recurrence not specified J01.10 and Cough R05 [address] [place] [address] [id number] Dec, [place] [id number] [place] [address] [id number] Nov, [facility] [address] [place] [id number] [place] [address] Nov, Bronchitis J40 [id number] [id number] Nov, [facility] [address] [place] [address] Oct, COPD with acute exacerbation J44.1 [place] [id number] [place] [address] [id number] Oct, Chronic pain G89.29 [address] [place] [address] [id number] Oct, [place] [id number] [place] [address] [id number] Sep, Chronic pain G89.29 ; Depression F32.9 ; Anxiety F41.9 ; 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 and Flu-like symptoms R68.89 [facility] [id number] [address] Aug, Chronic pain G89.29 ; Open bite of other finger without damage to nail, initial encounter S61.258A and Bitten by dog, initial encounter W54.0XXA [place] [address] [place] [id number] [place] [address] 13 Jul, 2017 Menopause Z78.0 ; Ankle swelling, unspecified laterality M25.473 ; Chronic pain G89.29 and Tobacco abuse Z72.0 [facility] [address] [address] 30 Jun, [address] [address] Jun, Chronic pain G89.29 [facility] [address] [address] [id number] [place] [address] 25 May, 2017 Dysuria R30.0 ; Dehydration E86.0 and Hypertension I10 [address] [address] 19 May, 2017 Menopause Z78.0 ; Depression F32.9 ; Chronic pain G89.29 ; Environmental allergies Z91.09 ; 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 and Encounter for immunization Z23 [place] [address] [place] [id number] [place] [address] 18 May, 2017 Chronic pain G89.[address] [address] Apr, Chronic pain G89.29 [place] [address] [address] 16 Apr, 2017 Routine gynecological examination Z01.[address] [place] [address] Mar, Chronic pain G89.29 [place] [address] [place] [id number] [place] [address] Feb, [place] [address] [place] [id number] [place] [address] Feb, Chronic pain G89.29 [place] [address] [address] Feb, [place] [address] [address] January, Chronic pain G89.29 [place] [address] [address] January, Routine gynecological examination Z01.419 and Breast cancer screening Z12.39 [place] [address] [address] January, Chronic pain G89.29 [place] [address] [place] [id number] [place] [address] Dec, Postmenopausal HRT (hormone replacement therapy) Z79.890 [place] [address] [place] [id number] [place] [address] Dec, [place] [address] [place] [id number] [place] [address] Nov, Chronic pain G89.29 [place] [address] [place] [id number] [place] [address] Nov, Chronic headaches R51 ; GERD (gastroesophageal reflux disease) K21.9 ; Hypertension I10 ; 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 ; Hepatitis C B19.20 ; Chronic pain G89.29 ; Pain of right thumb M79.644 ; Insomnia G47.00 ; Depression F32.9 ; Environmental allergies Z91.09 and Closed fracture of tuft of distal phalanx of finger, with routine healing, subsequent encounter S62.639D [place] [address] [address] 15 Nov, 2016 [facility] [address] [id number] [place] [address] Nov, [facility] [address] [address] [id number] [place] [address] Nov, [facility] [address] [address] Nov, Hypertension I10 [facility] [address] [id number] [place] [address] Nov, [facility] [address] [id number] [place] [address] Nov, [facility] [address] [id number] [place] [address] Oct, Anxiety F41.9 [facility] [address] [address] [id number] [place] [address] Oct, [facility] [address] [id number] [place] [address] Oct, Acute upper respiratory infection, unspecified J06.9 and Other viral agents as the cause of diseases classified elsewhere B97.89 [facility] [address] [place] [id number] [place] [address] Oct, [facility] [address] [id number] [place] [address] Oct, Right acute serous otitis media, recurrence not specified H65.01 and Pharyngitis, unspecified etiology J02.9 [facility] [address] [id number] [place] [address] Sep, [facility] [id number] [place] [address] Aug, Environmental allergies Z91.09 [facility] [address] [place] [id number] [place] [address] [place] [address] Aug, [facility] [address] [place] [address] Jul, Atypical nevi D22.9 [facility] [address] [id number] [place] [address] 15 Jul, 2016 [facility] [address] [id number] [place] [address] Jul, [facility] [address] [id number] [place] [address] Jul, [facility] [address] [id number] [place] [address] Jun, [facility] [address] [id number] [place] [address] 23 May, 2016 [facility] [address] [id number] [place] [address] 13 May, 2016 [facility] [address] [id number] [place] [address] 09 May, 2016 [facility] [address] [id number] [place] [address] Apr, [facility] [address] [place] [address] [id number] [place] [address] Apr, Chronic headaches R51 ; GERD (gastroesophageal reflux disease) K21.9 ; Hypertension I10 ; 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 ; Anxiety F41.9 ; COPD with acute exacerbation J44.1 ; Environmental allergies Z91.09 ; Depression F32.9 and Chronic pain G89.29 [facility] [address] [address] [id number] [place] [address] Feb, Chronic headaches R51 and Chronic pain G89.29 [facility] [address] [id number] [place] [address] January, Chronic pain G89.29 and Anxiety F41.9 [place] [address] [place] [id number] [place] [address] January, Depression F32.9 and Hypertension I10 [place] [address] [address] January, Chronic pain G89.29 [place] [address] [address] Dec, [place] [address] [address] Dec, [place] [address] [address] Dec, Chronic headaches R51 ; Chronic pain G89.29 ; Environmental allergies Z91.09 ; GERD (gastroesophageal reflux disease) K21.9 ; Insomnia G47.00 ; Hypertension I10 and COPD with acute exacerbation J44.[address] [address] Dec, [place] [address] [address] Dec, Chest pain R07.9 ; GERD (gastroesophageal reflux disease) K21.9 and Nausea R11.0 [place] [id number] [place] [address] Nov, [place] [address] [place] [id number] [place] [address] Oct, COPD with acute exacerbation J44.1 ; Chronic headaches R51 ; GERD (gastroesophageal reflux disease) K21.9 ; Insomnia G47.00 ; Hypertension I10 ; Depression F32.9 and Anxiety F41.9 [place] [id number] [place] [address] Oct, [place] [address] [place] [id number] [place] [address] Oct, [address] [place] [address] 18 Oct, [address] [address] 17 Oct, 2015 [place] [address] [address] 15 Oct, 2015 Flu-like symptoms R68.89 and COPD with acute exacerbation J44.[address] [address] 12 Oct, [address] [address] 11 Oct, 2015 Left shoulder pain M25.512 ; Chronic headaches R51 ; Environmental allergies Z91.09 ; GERD (gastroesophageal reflux disease) K21.9 ; Insomnia G47.00 ; Hypertension I10 ; Depression F32.9 and COPD (chronic obstructive pulmonary disease) with emphysema J43.[address] [address] Sep, [address] [address] Sep, COPD (chronic obstructive pulmonary disease) J44.[address] [address] Sep, Bronchitis J40 [address] [address] Aug, Cervicalgia 723.1 ; Chronic hepatitis C without mention of hepatic coma 070.54 ; Essential hypertension 401.9 ; Chronic headaches R51 ; Environmental allergies Z91.09 ; GERD (gastroesophageal reflux disease) K21.9 ; Insomnia G47.00 ; Depression F32.9 and COPD (chronic obstructive pulmonary disease) J44.9 [place] [id number] [place] [address] Jul, Essential hypertension 401.9 ; Hypertension I10 ; Depression F32.9 ; Anxiety F41.9 ; Chronic headaches R51 and Cervicalgia M54.2 [place] [address] [place] [address] Jul, Essential hypertension 401.9 and Anxiety F41.9 [place] [address] [place] [id number] [place] [address] Jul, [place] [id number] [place] [address] Jul, [place] [address] [place] [id number] [place] [address] Jul, Insomnia G47.00 ; GERD (gastroesophageal reflux disease) K21.9 ; Essential hypertension 401.9 ; Bipolar I disorder, most recent episode (or current) depressed, moderate 296.52 ; Hepatitis C B19.20 ; Depression F32.9 ; Hypertension I10 ; 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 ; Chronic headaches R51 and Chronic pain G89.29 [place] [id number] [place] [address] Jun, [place] [address] [place] [address] Jun, Chronic headaches R51 ; Environmental allergies Z91.09 ; GERD (gastroesophageal reflux disease) K21.9 ; Insomnia G47.00 ; Hepatitis C B19.20 ; Hypertension I10 ; Depression F32.9 ; 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 and Chronic pain G89.29 [place] [address] [place] [id number] [place] [address] Jun, [place] [id number] [place] [address] Jun, Vision changes H53.9 [place] [id number] [place] [address] Apr, [place] [address] [place] [address] Apr, Bipolar I disorder, most recent episode (or current) depressed, moderate 296.52 ; Other chronic pain 338.29 ; Chronic hepatitis C without mention of hepatic coma 070.54 ; Essential hypertension 401.9 ; Environmental allergies V15.09 and GERD (gastroesophageal reflux disease) 530.81 [facility] [address] [address] Mar, [facility] [address] [place] [id number] [place] [address] Mar, [facility] [address] [place] [id number] [place] [address] Mar, [facility] [address] [place] [id number] [place] [address] Mar, [facility] [address] [id number] [place] [address] Mar, [facility] [address] [id number] [place] [address] Feb, Routine gynecological examination V72.31 ; Breast cancer screening V76.10 and Tobacco abuse 305.1 [facility] [address] [id number] [place] [address] Feb, [facility] [address] [place] [id number] [place] [address] January, [facility] [address] [address] January, [facility] [address] [place] [id number] [place] [address] January, [facility] [address], [place] [address] January, [facility] [address] [place] [id number] [place] [address] January, Mood disorder 296.90 and Anxiety 300.00 [facility] [address] [place] [id number] [place] [address] January, [facility] [address], [place] [address] 30 Dec, 2014 Headache 784.0 ; Other chronic pain 338.29 and Cervicalgia 723.1 [facility] [address] [place] [address] 14 Dec, 2014 [facility] [address] [id number] [place] [address] Dec, [facility] [address], [place] [address] Nov, [facility] [address] [id number] [place] [address] Nov, [facility] [address] [id number] [place] [address] Oct, [facility] [address] [place] [address] Oct, [facility] [address] [address] Oct, [facility] [address] [place] [address] Oct, [facility] [address], [place] [address] Oct, [facility] [address], [place] [address] Oct, [facility] [address], [place] [address] Oct, [facility] [address], [place] [address] Oct, [facility] [address], [place] [address] Oct, [facility] [address], [place] [address] 18 Oct, 2014 [facility] [place] [facility] [address] [id number] [place] [address] Oct, [facility] [place] [facility] [address] [id number] [place] [address] Oct, [facility] [place] [facility] [address] [id number] [place] [address] Sep, [facility] [place] [facility] [address] [id number] [place] [address] Sep, [facility] [place] [facility] [address] [id number] [place] [address] Sep, [facility] [place] [facility] [address] [id number] [place] [address] Sep, [facility] [place] [facility] [address] [id number] [place] [address] Sep, [facility] [place] [facility] [address] [id number] [place] [address] Sep, [facility] [place] [facility] [address] [id number] [place] [address] Sep, [facility] [place] [facility] [address] [id number] [place] [address] Sep, [facility] [place] [facility] [address] [id number] [address] Sep, [facility] [place] [facility] [address] [id number], [place] [address] Sep, [facility] [place] [facility] [address] [id number] [place] [address] Sep, [facility] [place] [facility] [address] [id number] [address] Sep, [facility] [place] [facility] [address] [id number] [place] [address] Sep, [facility] [place] [facility] [address] [id number] [place] [address] Sep, [facility] [address] [id number] [place] [address] Aug, [facility] [place] [facility] [address] [id number] [place] [address] Aug, [facility] [address] [id number] [place] [address] Aug, [facility] [place] [facility] [address] [id number] [place] [address] Aug, [facility] [address] [id number] [place] [address] Aug, [facility] [address] [id number] [place] [address] Aug, [facility] [place] [facility] [address] [id number] [place] [address] Aug, [facility] [address] [id number] [place] [address] Aug, [facility] [place] [facility] [address] [id number] [place] [address] Aug, [facility] [address] [id number] [place] [address] Aug, [facility] [place] [facility] [address] [id number] [place] [address] Aug, [facility] [place] [facility] [address] [id number] [place] [address] Aug, [facility] [place] [facility] [address] [id number] [place] [address] Aug, [facility] [place] [facility] [address] [id number] [place] [address] Jul, [facility] [place] [facility] [address] [id number] [place] [address] Jul, [facility] [place] [facility] [address] [id number] [place] [address] Feb, [facility] [place] [facility] [address] [id number] [place] [address] Feb, [facility] [place] [facility] [address] [id number] [place] [address] January, [facility] [place] [facility] [address] [id number] [place] [address] January, [facility] [place] [facility] [address] [id number] [place] [address] January, [facility] [place] [facility] [address] [id number] [place] [address] January, [facility] [place] [facility] [address] [id number] [place] [address] Nov, [facility] [place] [facility] [address] [id number] [place] [address] Nov, [facility] [place] [facility] [address] [id number] [place] [address] Nov, [facility] [place] [facility] [address] [id number] [place] [address] Nov, [facility] [place] [facility] [address] [id number] [place] [address] Oct, [facility] [place] [facility] [address] [id number] [place] [address] Oct, [facility] [place] [facility] [address] [id number] [place] [address] Sep, [facility] [place] [facility] [address] [id number] [place] [address] Sep, [facility] [place] [facility] [address] [id number] [place] [address] Sep, [facility] [place] [facility] [address] [id number] [address] Sep, [facility] [address] [id number] [place] [address] Aug, [facility] [place] [facility] [address] [id number] [place] [address] Aug, [facility] [address] [id number] [place] [address] Aug, [facility] [place] [facility] [address] [id number] [place] [address] Aug, [facility] [address] [id number] [place] [address] Aug, [facility] [place] [facility] [address] [id number] [place] [address] Aug, [facility] [address] [id number] [place] [address] Aug, [facility] [place] [facility] [address] [id number], [place] [address] Jul, [facility] [address] [id number] [place] [address] Jul, [facility] [place] [facility] [address] [facility] [id number] [place] [address] Jul, [facility] [address] [id number] [place] [address] Jul, [facility] [place] [facility] [address] [id number], [place] [address] Jul, [facility] [place] [facility] [address] [id number], [place] [address] Jul, [facility] [place] [facility] [address] [id number], [place] [address] 08 Jul, 2013 [facility] [place] [facility] [address] [id number], [place] [address] Jun, [facility] [place] [facility] [address] [facility] [id number], [place] [address] Jun, [facility] [address] [facility] [id number] [address] Jun, [facility] [address] [facility] [id number], [place] [address] Jun, [facility] [address] [facility] [id number], [place] [address] Jul, [facility] [address] [facility] [id number], [place] [address] Jul, [facility] [address] [facility] [id number], [place] [address] Jul, [facility] [address] [facility] [id number], [place] [address] Jul, [facility] [id number], [place] [address] Jun, [facility] [address] [id number], [place] [address] Jun, [facility] [address] [facility] [id number], [place] [address] Jun, [facility] [id number], [place] [address] Jun, [facility] [id number], [place] [address] Jun, [facility] [address] [facility] [id number], [place] [address] Mar, [facility] [id number], [place] [address] January, IMMUNIZATIONS No Known Immunizations SOCIAL HISTORY Never Assessed REASON FOR VISIT Medication refill request PLAN OF CARE VITAL SIGNS MEDICATIONS Medication Instructions Dosage Frequency Start Date End Date Duration Status Percocet 5-325 MG Orally 3 times a day 1 tablet as needed 8h Dec, 28 days Active RESULTS No Results PROCEDURES [...] Hospitalization History low blood pressure--via [facility] 12/2017
--- OUTSIDE RECORDS SUMMARY | 2019-04-09 01:41 | XMS REPORT ---
Author Author SHABANA DELGADO Organization [facility] Address [address] [place] [address] Care Team Providers Care Sand Miller Name Role Phone CHRISTYCLARISSAAASHISH SHABANA Unavailable PROBLEMS Type Condition ICD9-CM Code MUW46-IW Code Onset Dates Condition Status SNOMED Code Problem Hypertension I10 Active 26801278 Problem Cervicalgia M54.2 Active 321542877 Problem COPD (chronic obstructive pulmonary disease) with emphysema J43.9 Active 34431275 Problem Menopause Z78.0 Active 092490024 Problem Postmenopausal HRT (hormone replacement therapy) Z79.890 Active 99269237 Problem COPD with acute exacerbation J44.1 Active 588687149 Problem Anxiety F41.9 Active 24628202 Problem Chest pain R07.9 Active 31142081 Problem Nausea R11.0 Active 227295582 Problem Chronic headaches R51 Active 202517708 Problem Environmental allergies Z91.09 Active 088998542 Problem Insomnia G47.00 Active 965910715 Problem Hepatitis C B19.20 Active 47842796 Problem Depression F32.9 Active 93898681 Problem Chronic pain G89.29 Active 41919298 Problem GERD (gastroesophageal reflux disease) K21.9 Active 048222700 ALLERGIES No Information ENCOUNTERS Encounter Location Date Diagnosis [facility] [address], [place] [address] Feb, Poison elda L23.7 [facility] [id number] [id number] Feb, Chronic pain G89.29 [facility] [id number] [place] [address] Feb, Bronchitis J40 [facility] [id number] [id number] Feb, [facility] [address] [place] [id number] Feb, Chronic pain G89.29 [address] [place] [id number] January, Vaginal discharge N89.8 ; Increased urinary frequency R35.0 ; Acute cystitis with hematuria N30.01 ; Other specified bacterial agents as the cause of diseases classified elsewhere B96.89 and Acute vaginitis N76.0 [place] [id number] [place] [id number] January, Chronic pain G89.29 and Candidiasis B37.9 [facility] [address] [place] [address] January, [facility] [place] [id number] [place] [address] Dec, Acute frontal sinusitis, recurrence not specified J01.10 and Cough R05 [place] [id number] [place] [address] [id number] Dec, [place] [id number] [place] [address] [id number] Nov, [facility] [id number] [place] [address] Nov, Bronchitis J40 [address] [id number] [id number] Nov, [facility] [address] [place] [address] Oct, COPD with acute exacerbation J44.[address] [place] [address] [id number] Oct, Chronic pain G89.29 [place] [id number] [place] [address] [id number] Oct, [place] [id number] [place] [address] [id number] Sep, Chronic pain G89.29 ; Depression F32.9 ; Anxiety F41.9 ; 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 and Flu-like symptoms R68.89 [facility] [place] [id number] [address] Aug, Chronic pain G89.29 ; Open bite of other finger without damage to nail, initial encounter S61.258A and Bitten by dog, initial encounter W54.0XXA [place] [id number] [place] [address] Jul, Menopause Z78.0 ; Ankle swelling, unspecified laterality M25.473 ; Chronic pain G89.29 and Tobacco abuse Z72.0 [facility] [address] [address] Jun, [place] [address] [address] Jun, Chronic pain G89.29 [facility] [address] [address] May, Dysuria R30.0 ; Dehydration E86.0 and Hypertension I10 [place] [address] [address] 19 May, 2017 Menopause Z78.0 ; Depression F32.9 ; Chronic pain G89.29 ; Environmental allergies Z91.09 ; 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 and Encounter for immunization Z23 [place] [id number] [place] [address] May, Chronic pain G89.29 [place] [id number] [place] [address] Apr, Chronic pain G89.29 [place] [address] [address] Apr, Routine gynecological examination Z01.419 [place] [id number] [place] [address] Mar, Chronic pain G89.29 [place] [address], [place] [address] Feb, [place] [id number] [place] [address] Feb, Chronic pain G89.29 [place] [id number] [place] [address] Feb, [place] [address] [address] January, Chronic pain G89.29 [place] [id number] [place] [address] January, Routine gynecological examination Z01.419 and Breast cancer screening Z12.39 [place] [id number] [place] [address] January, Chronic pain G89.29 [place] [id number] [place] [address] Dec, Postmenopausal HRT (hormone replacement therapy) Z79.890 [place] [id number] [place] [address] Dec, [place] [id number] [place] [address] Nov, Chronic pain G89.29 [place] [id number] [place] [address] Nov, Chronic headaches R51 ; GERD (gastroesophageal reflux disease) K21.9 ; Hypertension I10 ; 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 ; Hepatitis C B19.20 ; Chronic pain G89.29 ; Pain of right thumb M79.644 ; Insomnia G47.00 ; Depression F32.9 ; Environmental allergies Z91.09 and Closed fracture of tuft of distal phalanx of finger, with routine healing, subsequent encounter S62.639D [place] [id number] [place] [address] Nov, [place] [address], [place] [address] Nov, [facility] [id number] [place] [address] Nov, [facility] [id number] [place] [address] 08 Nov, 2016 Hypertension I10 [facility] [address] [address] Nov, [facility] [id number] [place] [address] Nov, [facility] [id number] [place] [address] Oct, Anxiety F41.9 [facility] [id number] [place] [address] Oct, [facility] [id number] [place] [address] Oct, Acute upper respiratory infection, unspecified J06.9 and Other viral agents as the cause of diseases classified elsewhere B97.89 [facility] [id number] [place] [address] Oct, [facility] [id number] [place] [address] Oct, Right acute serous otitis media, recurrence not specified H65.01 and Pharyngitis, unspecified etiology J02.9 [facility] [id number], [place] [address] Sep, [facility] [id number] [place] [address] Aug, Environmental allergies Z91.09 [facility] [address] [place] [address] Aug, [facility] [id number] [place] [address] Jul, Atypical nevi D22.9 [facility] [address], [place] [address] 15 Jul, 2016 [facility] [id number], [place] [address] 10 Jul, 2016 [facility] [id number] [place] [address] 07 Jul, 2016 [facility] [id number] [place] [address] Jun, [facility] [id number] [place] [address] 23 May, 2016 [facility] [id number] [place] [address] May, [facility] [id number] [place] [address] May, [facility] [address], [place] [address] Apr, [facility] [id number] [place] [address] Apr, Chronic headaches R51 ; GERD (gastroesophageal reflux disease) K21.9 ; Hypertension I10 ; 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 ; Anxiety F41.9 ; COPD with acute exacerbation J44.1 ; Environmental allergies Z91.09 ; Depression F32.9 and Chronic pain G89.29 [facility] [address], [place] [address] Feb, Chronic headaches R51 and Chronic pain G89.29 [facility] [address] [place] [address] January, Chronic pain G89.29 and Anxiety F41.9 [facility] [address], [place] [address] January, Depression F32.9 and Hypertension I10 [place] [id number] [place] [address] January, Chronic pain G89.29 [place] [address] [address] Dec, [place] [address] [address] Dec, [place] [address] [address] Dec, Chronic headaches R51 ; Chronic pain G89.29 ; Environmental allergies Z91.09 ; GERD (gastroesophageal reflux disease) K21.9 ; Insomnia G47.00 ; Hypertension I10 and COPD with acute exacerbation J44.[address] [address] Dec, [address] [address] Dec, Chest pain R07.9 ; GERD (gastroesophageal reflux disease) K21.9 and Nausea R11.[address] [address] Nov, [place] [id number] [place] [address] Oct, COPD with acute exacerbation J44.1 ; Chronic headaches R51 ; GERD (gastroesophageal reflux disease) K21.9 ; Insomnia G47.00 ; Hypertension I10 ; Depression F32.9 and Anxiety F41.9 [place] [id number] [place] [address] Oct, [address] [address] Oct, [place] [address] [id number] [place] [address] Oct, [address] [place] [address] 17 Oct, [address] [address] 15 Oct, 2015 Flu-like symptoms R68.89 and COPD with acute exacerbation J44.[address] [address] 12 Oct, [address] [address] Oct, Left shoulder pain M25.512 ; Chronic headaches R51 ; Environmental allergies Z91.09 ; GERD (gastroesophageal reflux disease) K21.9 ; Insomnia G47.00 ; Hypertension I10 ; Depression F32.9 and COPD (chronic obstructive pulmonary disease) with emphysema J43.[address] [address] Sep, [address] [address] Sep, COPD (chronic obstructive pulmonary disease) J44.[address] [address] Sep, Bronchitis J40 [address] [address] Aug, Cervicalgia 723.1 ; Chronic hepatitis C without mention of hepatic coma 070.54 ; Essential hypertension 401.9 ; Chronic headaches R51 ; Environmental allergies Z91.09 ; GERD (gastroesophageal reflux disease) K21.9 ; Insomnia G47.00 ; Depression F32.9 and COPD (chronic obstructive pulmonary disease) J44.[address] [address] Jul, Essential hypertension 401.9 ; Hypertension I10 ; Depression F32.9 ; Anxiety F41.9 ; Chronic headaches R51 and Cervicalgia M54.[address] [address] Jul, Essential hypertension 401.9 and Anxiety F41.9 [place] [id number] [place] [address] Jul, [address] [address] Jul, [place] [id number] [place] [address] Jul, Insomnia G47.00 ; GERD (gastroesophageal reflux disease) K21.9 ; Essential hypertension 401.9 ; Bipolar I disorder, most recent episode (or current) depressed, moderate 296.52 ; Hepatitis C B19.20 ; Depression F32.9 ; Hypertension I10 ; 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 ; Chronic headaches R51 and Chronic pain G89.[address] [address] Jun, [address] [address] Jun, Chronic headaches R51 ; Environmental allergies Z91.09 ; GERD (gastroesophageal reflux disease) K21.9 ; Insomnia G47.00 ; Hepatitis C B19.20 ; Hypertension I10 ; Depression F32.9 ; 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 and Chronic pain G89.29 [place] [id number] [place] [address] Jun, [address] [address] Jun, Vision changes H53.9 [place] [id number] [place] [address] Apr, [address] [address] Apr, Bipolar I disorder, most recent episode (or current) depressed, moderate 296.52 ; Other chronic pain 338.29 ; Chronic hepatitis C without mention of hepatic coma 070.54 ; Essential hypertension 401.9 ; Environmental allergies V15.09 and GERD (gastroesophageal reflux disease) 530.81 [facility] [address], [place] [address] Mar, [facility] [address], [place] [address] Mar, [facility] [address], [place] [address] Mar, [facility] [id number], [place] [address] Mar, [facility] [address] [place] [address] Mar, [facility] [id number], [place] [address] Feb, Routine gynecological examination V72.31 ; Breast cancer screening V76.10 and Tobacco abuse 305.1 [facility] [address], [place] [address] Feb, [facility] [address], [place] [address] January, [facility] [address], [place] [address] January, [facility] [address], [place] [address] January, [facility] [address], [place] [address] January, [facility] [address], [place] [address] January, Mood disorder 296.90 and Anxiety 300.00 [facility] [address], [place] [address] January, [facility] [address], [place] [address] Dec, Headache 784.0 ; Other chronic pain 338.29 and Cervicalgia 723.1 [facility] [address], [place] [address] 14 Dec, 2014 [facility] [address], [place] [address] 13 Dec, 2014 [facility] [address] [place] [address] 18 Nov, 2014 [facility] [place] [facility] [address] [facility] [id number] [place] [address] 18 Nov, 2014 [facility] [address] [place] [address] Oct, [facility] [place] [facility] [id number] [place] [address] Oct, [facility] [address] [place] [address] Oct, [facility] [address], [place] [address] 26 Oct, 2014 [facility] [address] [place] [address] Oct, [facility] [address], [place] [address] 20 Oct, 2014 [facility] [place] [facility] [address], [place] [address] Oct, [facility] [address], [place] [address] 19 Oct, 2014 [facility] [place] [facility] [address], [place] [address] 18 Oct, 2014 [facility] [place] [facility] [address], [place] [address] 18 Oct, 2014 [facility] [place] [facility] [address], [place] [address] Oct, [facility] [place] [facility] [address] [id number] [place] [address] Oct, [facility] [place] [facility] [address] [id number] [place] [address] Sep, [facility] [place] [facility] [address] [id number] [place] [address] Sep, [facility] [place] [facility] [address] [id number] [place] [address] Sep, [facility] [place] [facility] [address] [id number] [place] [address] Sep, [facility] [place] [facility] [address] [id number] [place] [address] Sep, [facility] [place] [facility] [address] [id number] [place] [address] Sep, [facility] [place] [facility] [address] [id number] [place] [address] Sep, [facility] [place] [facility] [address] [id number] [place] [address] Sep, [facility] [place] [facility] [address] [id number] [place] [address] Sep, [facility] [place] [facility] [address] [id number] [address] Sep, [facility] [place] [facility] [address] [id number], [place] [address] Sep, [facility] [place] [facility] [address] [id number] [place] [address] Sep, [facility] [place] [facility] [address] [id number], [place] [address] Sep, [facility] [place] [facility] [address] [id number] [place] [address] Sep, [facility] [place] [facility] [address] [id number] [place] [address] Aug, [facility] [address] [id number] [place] [address] Aug, [facility] [place] [facility] [address] [id number] [place] [address] Aug, [facility] [place] [facility] [address] [id number] [place] [address] Aug, [facility] [place] [facility] [address] [id number] [place] [address] Aug, [facility] [place] [facility] [address] [id number] [place] [address] Aug, [facility] [place] [facility] [address] [id number] [place] [address] Aug, [facility] [address] [id number] [place] [address] Aug, [facility] [place] [facility] [address] [id number] [place] [address] Aug, [facility] [place] [facility] [address] [id number] [place] [address] Aug, [facility] [place] [facility] [address] [id number] [place] [address] Aug, [facility] [place] [facility] [address] [id number] [place] [address] Aug, [facility] [place] [facility] [address] [id number] [place] [address] Aug, [facility] [place] [facility] [address] [id number] [place] [address] Jul, [facility] [place] [facility] [address] [id number] [place] [address] Jul, [facility] [place] [facility] [address] [id number] [place] [address] Feb, [facility] [place] [facility] [address] [id number] [place] [address] Feb, [facility] [place] [facility] [address] [id number] [place] [address] January, [facility] [place] [facility] [address] [id number] [place] [address] January, [facility] [place] [facility] [address] [id number] [place] [address] January, [facility] [place] [facility] [address] [id number] [place] [address] January, [facility] [place] [facility] [address] [id number] [place] [address] Nov, [facility] [place] [facility] [address] [id number] [place] [address] Nov, [facility] [place] [facility] [address] [id number] [place] [address] Nov, [facility] [place] [facility] [address] [id number] [place] [address] Nov, [facility] [place] [facility] [address] [id number] [place] [address] Oct, [facility] [place] [facility] [address] [id number] [place] [address] Oct, [facility] [place] [facility] [address] [id number] [place] [address] Sep, [facility] [place] [facility] [address] [id number] [place] [address] Sep, [facility] [place] [facility] [address] [id number] [place] [address] Sep, [facility] [place] [facility] [address] [id number] [place] [address] Sep, [facility] [place] [facility] [address] [id number], [place] [address] Aug, [facility] [address] [id number] [place] [address] Aug, [facility] [place] [facility] [address] [facility] [id number], [place] [address] Aug, [facility] [address] [facility] [id number] [place] [address] Aug, [facility] [place] [facility] [address] [facility] [id number], [place] [address] 05 Aug, 2013 [facility] [address] [id number] [place] [address], [place] [address] Aug, [facility] [place] [facility] [address] [facility] [id number] [place] [address] Aug, [facility] [id number] [address] Jul, [facility] [place] [facility] [address] [facility] [id number], [place] [address] Jul, [facility] [place] [facility] [id number] [address] Jul, [facility] [place] [facility] [id number], [place] [address] Jul, [facility] [place] [facility] [address] [facility] [id number], [place] [address] Jul, [facility] [place] [facility] [address] [facility] [id number], [place] [address] 12 Jul, 2013 [facility] [place] [facility] [address] [facility] [id number], [place] [address] 08 Jul, 2013 [facility] [place] [facility] [address] [facility] [id number], [place] [address] 31 Jun, 2013 [facility] [place] [facility] [id number], [place] [address] 30 Jun, 2013 [facility] [place] [facility] [address] [facility] [id number], [place] [address] Jun, [facility] [id number], [place] [address] Jun, [facility] [address] [facility] [id number], [place] [address] Jul, [facility] [address] [facility] [id number], [place] [address] Jul, [facility] [address] [facility] [id number], [place] [address] Jul, [facility] [id number], [place] [address] Jul, [facility] [id number], [place] [address] Jun, [facility] [id number], [place] [address] Jun, [facility] [id number], [place] [address] Jun, [facility] [address], [place] [address] Jun, [facility] [id number], [place] [address] Jun, [facility] [address], [place] [address] Mar, [facility] [id number], [place] [address] January, IMMUNIZATIONS No Known Immunizations SOCIAL HISTORY Never Assessed REASON FOR VISIT controlled medication PLAN OF CARE VITAL SIGNS MEDICATIONS Medication Instructions Dosage Frequency Start Date End Date Duration Status Percocet 5-325 MG Orally 3 times a day 1 tablet as needed 8h 13 Nov, 2017 28 days Active Lisinopril 10MG Orally Once a day 1 tablet 24h 90 days Active RESULTS No Results [...] child Hospitalization History low blood pressure--via [facility] 12/2017
--- OUTSIDE RECORDS SUMMARY | 2019-04-09 01:41 | XMS REPORT ---
Author Author AQUILES OWEN Organization [facility] Address [address] [place] [address] Care Team Providers Care Insurance Operations Rep Name Role Phone BRAYDEN AQUILES Unavailable PROBLEMS Type Condition ICD9-CM Code PSG67-AG Code Onset Dates Condition Status SNOMED Code Problem Hypertension I10 Active 59954599 Problem Cervicalgia M54.2 Active 486425513 Problem COPD (chronic obstructive pulmonary disease) with emphysema J43.9 Active 11865943 Problem Menopause Z78.0 Active 120248264 Problem Postmenopausal HRT (hormone replacement therapy) Z79.890 Active 39432688 Problem COPD with acute exacerbation J44.1 Active 951126684 Problem Anxiety F41.9 Active 46656207 Problem Chest pain R07.9 Active 35716087 Problem Nausea R11.0 Active 648631469 Problem Chronic headaches R51 Active 219037731 Problem Environmental allergies Z91.09 Active 470309480 Problem Insomnia G47.00 Active 115089642 Problem Hepatitis C B19.20 Active 62676191 Problem Depression F32.9 Active 54305823 Problem Chronic pain G89.29 Active 54534921 Problem GERD (gastroesophageal reflux disease) K21.9 Active 192746385 ALLERGIES Substance Reaction Event Type Date Status Zoloft hypotension Drug Allergy Nov, Active Wellbutrin jittery Drug Allergy Nov, Active Tramadol HCl anaphylaxis Drug Allergy Nov, Active Tetracycline HCl rash Drug Allergy Nov, Active Sulfamethoxazole-Trimethoprim Unknown Drug Allergy Nov, Active Penicillin V Potassium rash Drug Allergy Nov, Active Morphine Sulfate anaphylaxis Drug Allergy Nov, Active Doxycycline Hyclate rash Drug Allergy Nov, Active Wasp/hornet/bee stings anaphylaxis Non Drug Allergy Nov, Active ENCOUNTERS Encounter Location Date Diagnosis [facility] [address] [facility] [id number] [place] [address] Feb, Poison elda L23.7 [facility] [id number] [place] [address] [id number] Feb, Chronic pain G89.29 [facility] [id number] [place] [address] Feb, Bronchitis J40 [facility] [id number] [place] [address] [id number] Feb, [facility] [id number] [place] [address] [id number] Feb, Chronic pain G89.29 [facility] [id number] [place] [address] [id number] January, Vaginal discharge N89.8 ; Increased urinary frequency R35.0 ; Acute cystitis with hematuria N30.01 ; Other specified bacterial agents as the cause of diseases classified elsewhere B96.89 and Acute vaginitis N76.0 [place] [id number] [place] [address] [id number] January, Chronic pain G89.29 and Candidiasis B37.9 [facility] [id number] [place] [address] January, [facility] [address] [place] [id number] [place] [address] Dec, Acute frontal sinusitis, recurrence not specified J01.10 and Cough R05 [id number] [place] [address] [id number] Dec, [facility] [id number] [place] [address] [id number] Nov, [facility] [id number] [place] [address] Nov, Bronchitis J40 [id number] [place] [address] [id number] Nov, [facility] [id number] [place] [address] Oct, COPD with acute exacerbation J44.1 [place] [id number] [place] [address] [id number] Oct, Chronic pain G89.29 [facility] [address] [place] [facility] [id number] [id number] Oct, [facility] [id number] [id number] Sep, Chronic pain G89.29 ; Depression F32.9 ; Anxiety F41.9 ; 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 [id number] [place] [address] Jun, [facility] [address] [address] Jun, Chronic pain G89.29 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 and Encounter for immunization Z23 [place] [address] [address] 18 May, 2017 Chronic pain G89.29 [facility] [address] [address] Apr, Chronic pain G89.29 [facility] [address] [address] Apr, Routine gynecological examination Z01.419 [facility] [id number] [place] [address] Mar, Chronic pain G89.29 [facility] [id number] [place] [address] Feb, [facility] [id number] [place] [address] Feb, Chronic pain G89.29 [facility] [id number] [place] [address] Feb, [place] [id number] [place] [address] January, Chronic pain G89.29 [facility] [id number] [place] [address] January, Routine gynecological examination Z01.419 and Breast cancer screening Z12.39 [place] [id number] [place] [address] January, Chronic pain G89.29 [place] [id number] [place] [address] Dec, Postmenopausal HRT (hormone replacement therapy) Z79.890 [place] [address] [place] [address] Dec, [facility] [id number] [place] [address] Nov, Chronic pain G89.29 [place] [address] [place] [address] Nov, Chronic headaches R51 ; GERD (gastroesophageal reflux disease) K21.9 ; Hypertension I10 ; 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 ; Hepatitis C B19.20 ; Chronic pain G89.29 ; Pain of right thumb M79.644 ; Insomnia G47.00 ; Depression F32.9 ; Environmental allergies Z91.09 and Closed fracture of tuft of distal phalanx of finger, with routine healing, subsequent encounter S62.749D [facility] [id number] [place] [address] 15 Nov, 2016 [facility] [address] [address] Nov, [facility] [address] [address] Nov, [place] [address] [address] Nov, Hypertension I10 [facility] [address] [address] Nov, [facility] [address] [address] Nov, [facility] [id number] [place] [address] Oct, Anxiety F41.9 [facility] [id number] [place] [address] Oct, [facility] [id number] [place] [address] Oct, Acute upper respiratory infection, unspecified J06.9 and Other viral agents as the cause of diseases classified elsewhere B97.89 [facility] [id number] [place] [address] Oct, [facility] [address] [address] Oct, Right acute serous otitis media, recurrence not specified H65.01 and Pharyngitis, unspecified etiology J02.9 [place] [address] [id number] Sep, [facility] [address] [address] Aug, Environmental allergies Z91.09 [facility] [address] [address] Aug, [facility] [address] [address] Jul, Atypical nevi D22.9 [facility] [address] [address] Jul, [facility] [id number] [address] Jul, [facility] [address] [address] Jul, [facility] [address] [address] Jun, [facility] [address] [address] May, [facility] [address] [address] 13 May, 2016 [facility] [address] [address] May, [facility] [address] [address] Apr, [facility] [id number] [address] Apr, Chronic headaches R51 ; GERD (gastroesophageal reflux disease) K21.9 ; Hypertension I10 ; 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 ; Anxiety F41.9 ; COPD with acute exacerbation J44.1 ; Environmental allergies Z91.09 ; Depression F32.9 and Chronic pain G89.29 [facility] [address] [address] Feb, Chronic headaches R51 and Chronic pain G89.29 [place] [id number] [place] [address] January, Chronic pain G89.29 and Anxiety F41.9 [place] [address] [address] January, Depression F32.9 and Hypertension I10 [place] [address] [address] January, Chronic pain G89.29 [place] [address] [address] Dec, [place] [address] [address] Dec, [place] [address] [address] Dec, Chronic headaches R51 ; Chronic pain G89.29 ; Environmental allergies Z91.09 ; GERD (gastroesophageal reflux disease) K21.9 ; Insomnia G47.00 ; Hypertension I10 and COPD with acute exacerbation J44.1 [place] [address] [address] Dec, [place] [address] [address] Dec, Chest pain R07.9 ; GERD (gastroesophageal reflux disease) K21.9 and Nausea R11.0 [place] [id number] [place] [address] Nov, [place] [address] [address] Oct, COPD with acute exacerbation J44.1 ; Chronic headaches R51 ; GERD (gastroesophageal reflux disease) K21.9 ; Insomnia G47.00 ; Hypertension I10 ; Depression F32.9 and Anxiety F41.9 [place] [address] [place] [address] Oct, [place] [address] [address] Oct, [place] [address] [address] Oct, [place] [address] [address] Oct, [place] [address] [address] 15 Oct, 2015 Flu-like symptoms R68.89 and COPD with acute exacerbation J44.[address] [address] Oct, [address] [address] Oct, Left shoulder pain M25.512 ; Chronic headaches R51 ; Environmental allergies Z91.09 ; GERD (gastroesophageal reflux disease) K21.9 ; Insomnia G47.00 ; Hypertension I10 ; Depression F32.9 and 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 [place] [id number] [place] [address] Sep, [place] [id number] [place] [address] Sep, COPD (chronic obstructive pulmonary disease) J44.9 [place] [id number] [place] [address] Sep, Bronchitis J40 [place] [address] [place] [address] Aug, Cervicalgia 723.1 ; Chronic hepatitis C without mention of hepatic coma 070.54 ; Essential hypertension 401.9 ; Chronic headaches R51 ; Environmental allergies Z91.09 ; GERD (gastroesophageal reflux disease) K21.9 ; Insomnia G47.00 ; Depression F32.9 and COPD (chronic obstructive pulmonary disease) J44.9 [place] [id number] [place] [address] Jul, Essential hypertension 401.9 ; Hypertension I10 ; Depression F32.9 ; Anxiety F41.9 ; Chronic headaches R51 and Cervicalgia M54.[address] [address] Jul, Essential hypertension 401.9 and Anxiety F41.[address] [address] Jul, [address] [address] Jul, [address] [address] Jul, Insomnia G47.00 ; GERD (gastroesophageal reflux disease) K21.9 ; Essential hypertension 401.9 ; Bipolar I disorder, most recent episode (or current) depressed, moderate 296.52 ; Hepatitis C B19.20 ; Depression F32.9 ; Hypertension I10 ; 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 ; Chronic headaches R51 and Chronic pain G89.[address] [address] Jun, [address] [address] Jun, Chronic headaches R51 ; Environmental allergies Z91.09 ; GERD (gastroesophageal reflux disease) K21.9 ; Insomnia G47.00 ; Hepatitis C B19.20 ; Hypertension I10 ; Depression F32.9 ; 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 and Chronic pain G89.[address] [address] Jun, [address] [address] Jun, Vision changes H53.[address] [id number] [address] Apr, [facility] [id number] [place] [address] Apr, Bipolar I disorder, most recent episode (or current) depressed, moderate 296.52 ; Other chronic pain 338.29 ; Chronic hepatitis C without mention of hepatic coma 070.54 ; Essential hypertension 401.9 ; Environmental allergies V15.09 and GERD (gastroesophageal reflux disease) 530.81 [facility] [address] [address] Mar, [facility] [id number] [place] [address] Mar, [facility] [id number] [place] [address] Mar, [facility] [id number] [place] [address] Mar, [facility] [address] [address] Mar, [facility] [id number] [place] [address] Feb, Routine gynecological examination V72.31 ; Breast cancer screening V76.10 and Tobacco abuse 305.1 [facility] [address] [address] Feb, [facility] [address] [address] January, [facility] [address] [address] January, [facility] [address] [address] January, [facility] [address] [address] January, [facility] [address] [address] January, Mood disorder 296.90 and Anxiety 300.00 [facility] [id number] [place] [address] January, [facility] [id number] [place] [address] Dec, Headache 784.0 ; Other chronic pain 338.29 and Cervicalgia 723.1 [facility] [id number] [place] [address] Dec, [facility] [id number] [place] [address] Dec, [facility] [id number] [place] [address] Nov, [facility] [id number] [place] [address] Nov, [facility] [address] [place] [address] Oct, [facility] [id number] [place] [address] Oct, [facility] [address] [address] Oct, [facility] [address] [place] [address] Oct, [facility] [address] [address] Oct, [facility] [id number] [place] [address] Oct, [facility] [address] [address] Oct, [facility] [address] [place] [address] Oct, [facility] [place] [facility] [address] [id number] [place] [address] 18 Oct, 2014 [facility] [place] [facility] [address] [id number] [place] [address] 18 Oct, 2014 [facility] [place] [facility] [address] [id number] [place] [address] 17 Oct, 2014 [facility] [place] [facility] [address] [id number] [place] [address] Oct, [facility] [place] [facility] [address] [id number] [place] [address] Sep, [facility] [place] [facility] [address] [id number] [place] [address] Sep, [facility] [place] [facility] [address] [id number] [place] [address] Sep, [facility] [place] [facility] [address] [id number] [place] [address] Sep, [facility] [place] [facility] [address] [id number] [place] [address] Sep, [facility] [place] [facility] [address] [id number] [place] [address] Sep, [facility] [place] [facility] [address] [id number] [address] Sep, [facility] [place] [facility] [address] [id number] [address] Sep, [facility] [place] [facility] [address] [id number] [address] Sep, [facility] [place] [facility] [address] [id number] [address] Sep, [facility] [place] [facility] [address] [id number] [place] [address] Sep, [facility] [place] [facility] [address] [id number] [place] [address] Sep, [facility] [address] [id number] [place] [address] Sep, [facility] [place] [facility] [address] [id number] [place] [address] Sep, [facility] [address] [id number] [place] [address] Aug, [facility] [address] [id number] [place] [address] Aug, [facility] [address] [id number] [place] [address] Aug, [facility] [address] [id number] [place] [address] Aug, [facility] [address] [id number] [place] [address] Aug, [facility] [address] [id number] [place] [address] Aug, [facility] [place] [facility] [address] [id number] [place] [address] Aug, [facility] [address] [id number] [place] [address] Aug, [facility] [place] [facility] [address] [id number] [place] [address] Aug, [facility] [place] [facility] [address] [id number] [place] [address] Aug, [facility] [place] [facility] [address] [id number] [place] [address] Aug, [facility] [place] [facility] [address] [id number] [place] [address] Aug, [facility] [place] [facility] [address] [id number] [place] [address] Aug, [facility] [place] [facility] [address] [id number] [place] [address] Jul, [facility] [place] [facility] [address] [id number] [place] [address] Jul, [facility] [place] [facility] [address] [id number] [place] [address] Feb, [facility] [place] [facility] [address] [id number] [place] [address] Feb, [facility] [place] [facility] [address] [id number] [place] [address] January, [facility] [place] [facility] [address] [id number] [place] [address] January, [facility] [place] [facility] [address] [id number] [place] [address] January, [facility] [place] [facility] [address] [id number] [place] [address] January, [facility] [place] [facility] [address] [id number] [place] [address] Nov, [facility] [place] [facility] [address] [id number] [place] [address] Nov, [facility] [place] [facility] [address] [id number] [place] [address] Nov, [facility] [place] [facility] [address] [id number] [place] [address] Nov, [facility] [place] [facility] [address] [id number] [place] [address] Oct, [facility] [place] [facility] [address] [id number] [place] [address] Oct, [facility] [place] [facility] [address] [id number] [place] [address] Sep, [facility] [place] [facility] [address] [id number] [place] [address] Sep, [facility] [address] [id number] [place] [address] Sep, [facility] [place] [facility] [address] [id number] [place] [address] Sep, [facility] [address] [id number] [place] [address] Aug, [facility] [place] [facility] [address] [id number] [place] [address] Aug, [facility] [address] [id number] [place] [address] Aug, [facility] [place] [facility] [address] [id number] [place] [address] Aug, [facility] [address] [id number] [place] [address] Aug, [facility] [place] [facility] [address] [id number] [place] [address] Aug, [facility] [place] [facility] [address] [id number] [place] [address] Aug, [facility] [address] [id number] [place] [address] Jul, [facility] [place] [facility] [address] [id number] [place] [address] 29 Jul, 2013 [facility] [place] [facility] [address] [id number] [place] [address] Jul, [facility] [place] [facility] [address] [id number] [place] [address] Jul, [facility] [place] [facility] [address] [id number] [place] [address] Jul, [facility] [place] [facility] [address] [id number] [address] Jul, [facility] [place] [facility] [address] [id number] [place] [address] 08 Jul, 2013 [facility] [place] [facility] [address] [id number] [place] [address] 31 Jun, 2013 [facility] [place] [facility] [address] [id number] [place] [address] 30 Jun, 2013 [facility] [place] [facility] [address] [id number] [place] [address] 30 Jun, 2013 [facility] [place] [facility] [address] [id number] [place] [address] Jun, [facility] [place] [facility] [address] [id number] [place] [address] Jul, [facility] [place] [facility] [address] [id number] [place] [address] 16 Jul, 2010 [facility] [place] [facility] [address] [id number] [place] [address] Jul, [facility] [place] [facility] [address] [id number] [place] [address] Jul, [facility] [place] [facility] [address] [id number] [place] [address] 26 Jun, 2010 [facility] [place] [facility] [address] [id number] [place] [address] 31 Jun, 2009 [facility] [place] [facility] [address] [id number] [place] [address] 29 Jun, 2009 [facility] [place] [facility] [address] [id number] [place] [address] 28 Jun, 2009 [facility] [place] [facility] [address] [id number] [place] [address] 15 Jun, 2009 [facility] [place] [facility] [address] [id number] [place] [address] 16 Mar, 2009 [facility] [place] [facility] [address] [id number] [place] [address] January, IMMUNIZATIONS No Known Immunizations SOCIAL HISTORY Never Assessed REASON FOR VISIT Vomiting, reports diarrhea all day yesterday. today started coughing up thick gr een mucus, cough was so hard started vomiting. Reports chest and back feel reall y tight. reports chills and body aches. CBrumbackRN PLAN OF CARE VITAL SIGNS Height 65.2 in 2017-11-27 Weight 140.4 lbs 2017-11-27 Temperature 97.6 degrees Fahrenheit 2017-11-27 Heart Rate 76 bpm 2017-11-27 Respiratory Rate 20 2017-11-27 Oximetry 98 % 2017-11-27 BMI 23.22 kg/m2 2017-11-27 Blood pressure systolic 154 mmHg 2017-11-27 Blood pressure diastolic 98 mmHg 2017-11-27 MEDICATIONS Medication Instructions Dosage Frequency Start Date End Date Duration Status Clindamycin HCl 300 MG Orally every 8 hrs 1 capsule 8h Nov, Nov, 10 days Active Albuterol Sulfate (2.5 MG/3ML) 0.083% Inhalation Three times a day 3 ml 8h 15 Oct, 2015 Active Venlafaxine HCl ER 75 MG Orally Once a day 1 capsule with food 24h May, 90 days Active Tizanidine HCl 4 MG Orally Three times a day 1 tablet as needed 8h May, May, 90 days Active Pantoprazole Sodium 40MG Orally Once a day 1 tablet 24h 90 Active HydrOXYzine HCl 25 MG Orally every 8 hrs 1 tablet as needed 8h 17 Jan, 2016 90 days Active Famotidine 20mg Orally 2 times a day TAKE ONE TABLET BY MOUTH TWICE DAILY 12h 30 Active Percocet 5-325 MG Orally 3 times a day 1 tablet as needed 8h 12 Oct, 2017 28 days Active Symbicort 160-4.5 mcg/act Inhalation Twice a day inhale 2 puffs by Inhalation route in the morning and evening 2 times per day 12h 20 Jul, 2014 90 days Active Tessalon Perles 100 mg Orally Three times a day 1 capsule as needed 8h Nov, Active Flonase 50 mcg/act Nasally Once a day 1 sprays by Nasal route 2 times per day in each nostril 24h 18 Nov, 2014 12 months Active Montelukast Sodium 10 mg Orally Once a day TAKE ONE TABLET BY MOUTH ONCE DAILY 24h 90 days Active Crestor 10 MG Orally Once a day 1 tablet 24h Active Trazodone HCl 100MG Orally Once a day 1 tablet at bedtime 24h 90 days Active PredniSONE 20 mg Orally Once a day 2 tablets 24h Nov, Nov, 05 days Active EPINEPHrine 0.3 MG/0.3ML Injection PRN as directed Apr, Active Cetirizine HCl 10 mg Orally Once a day 1 tablet as needed 24h May, 90 days Active Premarin 0.9 MG Orally Once a day 1 tablet 24h May, 90 days Active Lisinopril 10MG Orally Once a day 1 tablet 24h 90 days Active ProAir HFA 108 (90 Base) MCG/ACT Inhalation every 4 hrs 2 puffs as needed 4h Mar, 30 days Active RESULTS No Results [...] History child Hospitalization History low blood pressure--via [facility] 12/2017
--- OUTSIDE RECORDS SUMMARY | 2019-04-09 01:42 | XMS REPORT ---
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 Active 77569591 Problem Menopause Z78.0 Active 627375903 Problem Postmenopausal HRT (hormone replacement therapy) Z79.890 Active 31956904 Problem COPD with acute exacerbation J44.1 Active 984347995 Problem Anxiety F41.9 Active 61222492 Problem Chest pain R07.9 Active 95457577 Problem Nausea R11.0 Active 753634368 Problem Chronic headaches R51 Active 451770047 Problem Environmental allergies Z91.09 Active 204004006 Problem Insomnia G47.00 Active 266256152 Problem Hepatitis C B19.20 Active 73303624 Problem Depression F32.9 Active 30742451 Problem Chronic pain G89.29 Active 38404042 Problem GERD (gastroesophageal reflux disease) K21.9 Active 712205413 ALLERGIES No Information ENCOUNTERS Encounter Location Date Diagnosis [facility] [address], [place] [address] Feb, Poison elda L23.7 [facility] [id number] [id number] Feb, Chronic pain G89.29 [facility] [address] [place] [address] [id number] [place] [address] Feb, Bronchitis J40 [facility] [id number] [id number] Feb, [facility] [id number] [place] [id number] Feb, Chronic pain G89.29 [address] [place] [id number] January, Vaginal discharge N89.8 ; Increased urinary frequency R35.0 ; Acute cystitis with hematuria N30.01 ; Other specified bacterial agents as the cause of diseases classified elsewhere B96.89 and Acute vaginitis N76.0 [place] [id number] [place] [id number] January, Chronic pain G89.29 and Candidiasis B37.9 [facility] [address] [place] [address] January, [facility] [place] [id number] [place] [address] Dec, Acute frontal sinusitis, recurrence not specified J01.10 and Cough R05 [place] [id number] [place] [address] [id number] Dec, [place] [id number] [place] [id number] Nov, [facility] [id number] [place] [address] Nov, Bronchitis J40 [address] [id number] [id number] Nov, [facility] [id number] [place] [address] Oct, COPD with acute exacerbation J44.[address] [place] [address] [id number] Oct, Chronic pain G89.29 [place] [id number] [place] [id number] Oct, [place] [id number] [place] [address] [id number] Sep, Chronic pain G89.29 ; Depression F32.9 ; Anxiety F41.9 ; 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 and Flu-like symptoms R68.89 [facility] [place] [id number] [address] Aug, Chronic pain G89.29 ; Open bite of other finger without damage to nail, initial encounter S61.258A and Bitten by dog, initial encounter W54.0XXA [place] [id number] [place] [address] Jul, Menopause Z78.0 ; Ankle swelling, unspecified laterality M25.473 ; Chronic pain G89.29 and Tobacco abuse Z72.0 [facility] [address] [address] Jun, [place] [address] [address] Jun, Chronic pain G89.29 [facility] [address] [address] May, Dysuria R30.0 ; Dehydration E86.0 and Hypertension I10 [place] [address] [address] 19 May, 2017 Menopause Z78.0 ; Depression F32.9 ; Chronic pain G89.29 ; Environmental allergies Z91.09 ; 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 and Encounter for immunization Z23 [place] [id number] [place] [address] May, Chronic pain G89.29 [place] [id number] [place] [address] Apr, Chronic pain G89.29 [place] [address] [address] Apr, Routine gynecological examination Z01.419 [place] [id number] [place] [address] Mar, Chronic pain G89.29 [place] [address], [place] [address] Feb, [place] [id number] [place] [address] Feb, Chronic pain G89.29 [place] [id number] [place] [address] Feb, [place] [address] [address] January, Chronic pain G89.29 [place] [id number] [place] [address] January, Routine gynecological examination Z01.419 and Breast cancer screening Z12.39 [place] [id number] [place] [address] January, Chronic pain G89.29 [place] [id number] [place] [address] Dec, Postmenopausal HRT (hormone replacement therapy) Z79.890 [place] [id number] [place] [address] Dec, [place] [id number] [place] [address] Nov, Chronic pain G89.29 [place] [id number] [place] [address] Nov, Chronic headaches R51 ; GERD (gastroesophageal reflux disease) K21.9 ; Hypertension I10 ; 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 ; Hepatitis C B19.20 ; Chronic pain G89.29 ; Pain of right thumb M79.644 ; Insomnia G47.00 ; Depression F32.9 ; Environmental allergies Z91.09 and Closed fracture of tuft of distal phalanx of finger, with routine healing, subsequent encounter S62.639D [place] [id number] [place] [address] Nov, [place] [address], [place] [address] Nov, [facility] [id number] [place] [address] Nov, [facility] [id number] [place] [address] 08 Nov, 2016 Hypertension I10 [facility] [address] [address] Nov, [facility] [id number] [place] [address] Nov, [facility] [id number] [place] [address] Oct, Anxiety F41.9 [facility] [id number] [place] [address] Oct, [facility] [id number] [place] [address] Oct, Acute upper respiratory infection, unspecified J06.9 and Other viral agents as the cause of diseases classified elsewhere B97.89 [facility] [address] [id number] [place] [address] Oct, [facility] [id number] [place] [address] Oct, Right acute serous otitis media, recurrence not specified H65.01 and Pharyngitis, unspecified etiology J02.9 [facility] [id number], [place] [address] Sep, [facility] [id number] [place] [address] Aug, Environmental allergies Z91.09 [facility] [id number] [place] [address] Aug, [facility] [id number] [place] [address] Jul, Atypical nevi D22.9 [facility] [address], [place] [address] 15 Jul, 2016 [facility] [id number], [place] [address] 10 Jul, 2016 [facility] [id number] [place] [address] 07 Jul, 2016 [facility] [id number] [place] [address] Jun, [facility] [id number] [place] [address] 23 May, 2016 [facility] [id number] [place] [address] May, [facility] [id number] [place] [address] May, [facility] [address], [place] [address] Apr, [facility] [id number] [place] [address] Apr, Chronic headaches R51 ; GERD (gastroesophageal reflux disease) K21.9 ; Hypertension I10 ; 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 ; Anxiety F41.9 ; COPD with acute exacerbation J44.1 ; Environmental allergies Z91.09 ; Depression F32.9 and Chronic pain G89.29 [facility] [address], [place] [address] Feb, Chronic headaches R51 and Chronic pain G89.29 [facility] [address] [place] [address] January, Chronic pain G89.29 and Anxiety F41.9 [facility] [address], [place] [address] January, Depression F32.9 and Hypertension I10 [facility] [id number] [place] [address] January, Chronic pain G89.29 [facility] [address] [address] Dec, [facility] [address] [address] [id number] [place] [address] Dec, [facility] [address] [address] Dec, Chronic pain G89.29 ; Chronic headaches R51 ; Environmental allergies Z91.09 ; GERD (gastroesophageal reflux disease) K21.9 ; Insomnia G47.00 ; Hypertension I10 and COPD with acute exacerbation J44.1 [place] [address] [address] Dec, [place] [address] [address] Dec, Chest pain R07.9 ; GERD (gastroesophageal reflux disease) K21.9 and Nausea R11.[address] [address] Nov, [place] [id number] [place] [address] Oct, Hypertension I10 ; Anxiety F41.9 ; GERD (gastroesophageal reflux disease) K21.9 ; Depression F32.9 ; Insomnia G47.00 ; Chronic headaches R51 and COPD with acute exacerbation J44.1 [place] [id number] [place] [address] Oct, [place] [address] [address] Oct, [place] [address] [place] [address] [id number] [place] [address] Oct, [place] [address] [address] 17 Oct, [address] [address] 15 Oct, 2015 Flu-like symptoms R68.89 and COPD with acute exacerbation J44.[address] [address] 12 Oct, [address] [address] Oct, Left shoulder pain M25.512 ; Chronic headaches R51 ; Environmental allergies Z91.09 ; GERD (gastroesophageal reflux disease) K21.9 ; Insomnia G47.00 ; Hypertension I10 ; Depression F32.9 and COPD (chronic obstructive pulmonary disease) with emphysema J43.[address] [address] Sep, [address] [address] Sep, COPD (chronic obstructive pulmonary disease) J44.[address] [address] Sep, Bronchitis J40 [address] [address] Aug, Cervicalgia 723.1 ; Chronic hepatitis C without mention of hepatic coma 070.54 ; Essential hypertension 401.9 ; Chronic headaches R51 ; Environmental allergies Z91.09 ; GERD (gastroesophageal reflux disease) K21.9 ; Insomnia G47.00 ; Depression F32.9 and COPD (chronic obstructive pulmonary disease) J44.[address] [address] Jul, Essential hypertension 401.9 ; Hypertension I10 ; Depression F32.9 ; Anxiety F41.9 ; Chronic headaches R51 and Cervicalgia M54.[address] [address] Jul, Essential hypertension 401.9 and Anxiety F41.9 [place] [id number] [place] [address] Jul, [address] [address] Jul, [place] [id number] [place] [address] Jul, Insomnia G47.00 ; GERD (gastroesophageal reflux disease) K21.9 ; Essential hypertension 401.9 ; Bipolar I disorder, most recent episode (or current) depressed, moderate 296.52 ; Hepatitis C B19.20 ; Depression F32.9 ; Hypertension I10 ; 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 ; Chronic headaches R51 and Chronic pain G89.[address] [address] Jun, [address] [address] Jun, Chronic headaches R51 ; Environmental allergies Z91.09 ; GERD (gastroesophageal reflux disease) K21.9 ; Insomnia G47.00 ; Hepatitis C B19.20 ; Hypertension I10 ; Depression F32.9 ; 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 and Chronic pain G89.29 [place] [id number] [place] [address] Jun, [address] [address] Jun, Vision changes H53.9 [place] [id number] [place] [address] Apr, [address] [address] Apr, Bipolar I disorder, most recent episode (or current) depressed, moderate 296.52 ; Other chronic pain 338.29 ; Chronic hepatitis C without mention of hepatic coma 070.54 ; Essential hypertension 401.9 ; Environmental allergies V15.09 and GERD (gastroesophageal reflux disease) 530.81 [facility] [address], [place] [address] Mar, [facility] [address], [place] [address] Mar, [facility] [address], [place] [address] Mar, [facility] [id number], [place] [address] Mar, [facility] [address] [place] [address] Mar, [facility] [id number], [place] [address] Feb, Routine gynecological examination V72.31 ; Breast cancer screening V76.10 and Tobacco abuse 305.1 [facility] [address], [place] [address] Feb, [facility] [address], [place] [address] January, [facility] [address], [place] [address] January, [facility] [address], [place] [address] January, [facility] [address], [place] [address] January, [facility] [address], [place] [address] January, Mood disorder 296.90 and Anxiety 300.00 [facility] [address], [place] [address] January, [facility] [address], [place] [address] Dec, Headache 784.0 ; Other chronic pain 338.29 and Cervicalgia 723.1 [facility] [address], [place] [address] 14 Dec, 2014 [facility] [address], [place] [address] 13 Dec, 2014 [facility] [id number] [place] [address] 18 Nov, 2014 [facility] [place] [facility] [address] [facility] [id number] [place] [address] 18 Nov, 2014 [facility] [id number] [place] [address] Oct, [facility] [place] [facility] [id number] [place] [address] Oct, [facility] [id number] [place] [address] Oct, [facility] [address], [place] [address] 26 Oct, 2014 [facility] [address] [place] [address] Oct, [facility] [address], [place] [address] 20 Oct, 2014 [facility] [place] [facility] [address], [place] [address] Oct, [facility] [address], [place] [address] 19 Oct, 2014 [facility] [place] [facility] [address], [place] [address] 18 Oct, 2014 [facility] [place] [facility] [address], [place] [address] 18 Oct, 2014 [facility] [place] [facility] [address], [place] [address] Oct, [facility] [place] [facility] [address] [id number] [place] [address] Oct, [facility] [place] [facility] [address] [id number] [place] [address] Sep, [facility] [place] [facility] [address] [id number] [place] [address] Sep, [facility] [place] [facility] [address] [id number] [place] [address] Sep, [facility] [place] [facility] [address] [id number] [place] [address] Sep, [facility] [place] [facility] [address] [id number] [place] [address] Sep, [facility] [place] [facility] [address] [id number] [place] [address] Sep, [facility] [place] [facility] [address] [id number] [place] [address] Sep, [facility] [place] [facility] [address] [id number] [place] [address] Sep, [facility] [place] [facility] [address] [id number] [place] [address] Sep, [facility] [place] [facility] [address] [id number], [place] [address] Sep, [facility] [place] [facility] [address] [id number], [place] [address] Sep, [facility] [place] [facility] [address] [id number] [place] [address] Sep, [facility] [place] [facility] [address] [id number], [place] [address] Sep, [facility] [place] [facility] [address] [id number] [place] [address] Sep, [facility] [place] [facility] [address] [id number] [place] [address] Aug, [facility] [address] [id number] [place] [address] Aug, [facility] [place] [facility] [address] [id number] [place] [address] Aug, [facility] [place] [facility] [address] [id number] [place] [address] Aug, [facility] [place] [facility] [address] [id number] [place] [address] Aug, [facility] [place] [facility] [address] [id number] [place] [address] Aug, [facility] [place] [facility] [address] [id number] [place] [address] Aug, [facility] [address] [id number] [place] [address] Aug, [facility] [place] [facility] [address] [id number] [place] [address] Aug, [facility] [place] [facility] [address] [id number] [place] [address] Aug, [facility] [place] [facility] [address] [id number] [place] [address] Aug, [facility] [place] [facility] [address] [id number] [place] [address] Aug, [facility] [place] [facility] [address] [id number] [place] [address] Aug, [facility] [place] [facility] [address] [id number] [place] [address] Jul, [facility] [place] [facility] [address] [id number] [place] [address] Jul, [facility] [place] [facility] [address] [id number] [place] [address] Feb, [facility] [place] [facility] [address] [id number] [place] [address] Feb, [facility] [place] [facility] [address] [id number] [place] [address] January, [facility] [place] [facility] [address] [id number] [place] [address] January, [facility] [place] [facility] [address] [id number] [place] [address] January, [facility] [place] [facility] [address] [id number] [place] [address] January, [facility] [place] [facility] [address] [id number] [place] [address] Nov, [facility] [place] [facility] [address] [id number] [place] [address] Nov, [facility] [place] [facility] [address] [id number] [place] [address] Nov, [facility] [place] [facility] [address] [id number] [place] [address] Nov, [facility] [place] [facility] [address] [id number] [place] [address] Oct, [facility] [place] [facility] [address] [id number] [place] [address] Oct, [facility] [place] [facility] [address] [id number] [place] [address] Sep, [facility] [place] [facility] [address] [id number] [place] [address] Sep, [facility] [place] [facility] [address] [id number] [place] [address] Sep, [facility] [place] [facility] [address] [id number] [place] [address] Sep, [facility] [place] [facility] [address] [id number], [place] [address] Aug, [facility] [address] [id number] [place] [address] Aug, [facility] [place] [facility] [address] [facility] [id number], [place] [address] Aug, [facility] [address] [facility] [id number] [place] [address] Aug, [facility] [place] [facility] [address] [facility] [id number], [place] [address] 05 Aug, 2013 [facility] [id number] [place] [address], [place] [address] Aug, [facility] [place] [facility] [address] [facility] [id number] [place] [address] Aug, [facility] [id number], [place] [address] Jul, [facility] [place] [facility] [address] [facility] [id number], [place] [address] Jul, [facility] [place] [facility] [address] [id number], [place] [address] Jul, [facility] [place] [facility] [address] [id number], [place] [address] Jul, [facility] [place] [facility] [address] [facility] [id number], [place] [address] Jul, [facility] [place] [facility] [address] [facility] [id number], [place] [address] 12 Jul, 2013 [facility] [place] [facility] [address] [facility] [id number], [place] [address] 08 Jul, 2013 [facility] [place] [facility] [address] [facility] [id number], [place] [address] 31 Jun, 2013 [facility] [place] [facility] [address] [id number], [place] [address] 30 Jun, 2013 [facility] [place] [facility] [id number], [place] [address] 30 Jun, 2013 [facility] [id number], [place] [address] Jun, [facility] [address] [facility] [id number], [place] [address] Jul, [facility] [id number], [place] [address] Jul, [facility] [address] [facility] [id number], [place] [address] Jul, [facility] [id number], [place] [address] Jul, [facility] [id number], [place] [address] Jun, [facility] [id number], [place] [address] Jun, [facility] [id number], [place] [address] Jun, [facility] [id number], [place] [address] Jun, [facility] [id number], [place] [address] Jun, [facility] [address] [id number], [place] [address] Mar, [facility] [address] [id number], [place] [address] January, IMMUNIZATIONS No Known Immunizations SOCIAL HISTORY [...] History child Hospitalization History low blood pressure--via [facility] 12/2017
--- OUTSIDE RECORDS SUMMARY | 2019-04-09 01:43 | XMS REPORT ---
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 Name Role Phone melonyTINO MICHAEL Unavailable PROBLEMS Type Condition ICD9-CM Code KSQ48-VU Code Onset Dates Condition Status SNOMED Code Problem Hypertension I10 Active 17533180 Problem Cervicalgia M54.2 Active 382303000 Problem COPD (chronic obstructive pulmonary disease) with emphysema J43.9 Active 29216173 Problem Menopause Z78.0 Active 882920825 Problem Postmenopausal HRT (hormone replacement therapy) Z79.890 Active 57906861 Problem COPD with acute exacerbation J44.1 Active 416430485 Problem Anxiety F41.9 Active 88942299 Problem Chest pain R07.9 Active 52039081 Problem Nausea R11.0 Active 367552172 Problem Chronic headaches R51 Active 502476028 Problem Environmental allergies Z91.09 Active 065583032 Problem Insomnia G47.00 Active 688137655 Problem Hepatitis C B19.20 Active 06814573 Problem Depression F32.9 Active 69571171 Problem Chronic pain G89.29 Active 21458104 Problem GERD (gastroesophageal reflux disease) K21.9 Active 478665848 ALLERGIES No Information ENCOUNTERS Encounter Location Date Diagnosis [facility] [address] [facility] [id number] [id number] January, [facility] [address] [id number] [id number] January, Chronic pain G89.29 and Candidiasis B37.9 [facility] [id number] [place] [address] January, [facility] [address] [id number] [address] Dec, Acute frontal sinusitis, recurrence not specified J01.10 and Cough R05 [facility] [address] [id number] Dec, [place] [id number] [place] [id number] Nov, [facility] [id number] [place] [address] Nov, Bronchitis J[address] [id number] [id number] Nov, [facility] [address] [place] [id number] [place] [address] Oct, COPD with acute exacerbation J44.1 [place] [id number] [place] [id number] Oct, Chronic pain G89.29 [address] [id number] [place] [id number] Oct, [id number] [place] [id number] Sep, Chronic pain G89.29 ; Depression F32.9 ; Anxiety F41.9 ; 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 and Flu-like symptoms R68.89 [facility] [address] [id number] [place] [address] Aug, Chronic pain G89.29 ; Open bite of other finger without damage to nail, initial encounter S61.258A and Bitten by dog, initial encounter W54.0XXA [facility] [id number] [place] [address] Jul, Menopause Z78.0 ; Ankle swelling, unspecified laterality M25.473 ; Chronic pain G89.29 and Tobacco abuse Z72.0 [facility] [id number] [place] [address] Jun, [facility] [address] [place] [id number] [place] [address] Jun, Chronic pain G89.29 [facility] [id number] [place] [address] 25 May, 2017 Dysuria R30.0 ; Dehydration E86.0 and Hypertension I10 [facility] [id number] [place] [address] 19 May, 2017 Menopause Z78.0 ; Depression F32.9 ; Chronic pain G89.29 ; Environmental allergies Z91.09 ; 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 and Encounter for immunization Z23 [facility] [id number] [place] [address] 18 May, 2017 Chronic pain G89.29 [facility] [id number] [place] [address] Apr, Chronic pain G89.29 [facility] [id number] [place] [address] Apr, Routine gynecological examination Z01.419 [facility] [id number] [place] [address] Mar, Chronic pain G89.29 [facility] [id number] [place] [address] Feb, [facility] [id number] [place] [address] Feb, Chronic pain G89.29 [facility] [id number] [place] [address] Feb, [facility] [id number] [place] [address] January, Chronic pain G89.29 [facility] [id number] [place] [address] January, Routine gynecological examination Z01.419 and Breast cancer screening Z12.39 [facility] [id number] [place] [address] January, Chronic pain G89.29 [facility] [address] [place] [address] Dec, Postmenopausal HRT (hormone replacement therapy) Z79.890 [facility] [id number] [place] [address] Dec, [facility] [id number] [place] [address] Nov, Chronic pain G89.29 [facility] [id number] [place] [address] 30 Nov, 2016 Chronic headaches R51 ; [...] finger, with routine healing, subsequent encounter S62.639D [place] [id number] [place] [address] 15 Nov, 2016 [place] [id number] [place] [address] Nov, [place] [id number] [place] [address] Nov, [facility] [id number] [place] [address] 08 Nov, 2016 Hypertension I10 [facility] [id number] [place] [address] Nov, [facility] [address] [address] Nov, [facility] [id number] [place] [address] Oct, Anxiety F41.9 [facility] [address] [address] Oct, [facility] [address] [address] Oct, Acute upper respiratory infection, unspecified J06.9 and Other viral agents as the cause of diseases classified elsewhere B97.89 [facility] [address], [place] [address] Oct, [facility] [id number] [place] [address] Oct, Right acute serous otitis media, recurrence not specified H65.01 and Pharyngitis, unspecified etiology J02.9 [facility] [id number] [place] [address] Sep, [facility] [id number] [place] [address] Aug, Environmental allergies Z91.09 [facility] [id number] [place] [address] Aug, [facility] [address] [place] [address] Jul, Atypical nevi D22.9 [facility] [address], [place] [address] Jul, [facility] [address], [place] [address] Jul, [facility] [address], [place] [address] 07 Jul, 2016 [facility] [address] [place] [address] Jun, [facility] [address], [place] [address] 23 May, 2016 [facility] [address], [place] [address] 13 May, 2016 [facility] [id number] [place] [address] May, [place] [id number] [place] [address] Apr, [place] [id number] [place] [address] Apr, Chronic headaches R51 ; GERD (gastroesophageal reflux disease) K21.9 ; Hypertension I10 ; 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 ; Anxiety F41.9 ; COPD with acute exacerbation J44.1 ; Environmental allergies Z91.09 ; Depression F32.9 and Chronic pain G89.29 [place] [id number] [place] [address] Feb, Chronic headaches R51 and Chronic pain G89.29 [place] [id number] [place] [address] January, Chronic pain G89.29 and Anxiety F41.9 [place] [id number] [place] [address] January, Depression F32.9 and Hypertension I10 [place] [id number] [place] [address] January, Chronic pain G89.29 [place] [id number] [place] [address] Dec, [place] [id number] [place] [address] Dec, [place] [id number] [place] [address] Dec, Chronic headaches R51 ; Chronic pain G89.29 ; Environmental allergies Z91.09 ; GERD (gastroesophageal reflux disease) K21.9 ; Insomnia G47.00 ; Hypertension I10 and COPD with acute exacerbation J44.1 [place] [id number] [place] [address] 14 Dec, 2015 [place] [address] [address] 06 Dec, 2015 Chest pain R07.9 ; GERD (gastroesophageal reflux disease) K21.9 and Nausea R11.0 [place] [address] [address] Nov, [place] [address] [address] 24 Oct, 2015 COPD with acute exacerbation J44.1 ; Chronic headaches R51 ; GERD (gastroesophageal reflux disease) K21.9 ; Insomnia G47.00 ; Hypertension I10 ; Depression F32.9 and Anxiety F41.9 [place] [address] [address] Oct, [address] [address] Oct, [place] [address] [address] Oct, [address] [address] Oct, [place] [address] [address] 15 Oct, 2015 Flu-like symptoms R68.89 and COPD with acute exacerbation J44.1 [place] [address] [address] 12 Oct, [address] [address] Oct, Left shoulder pain M25.512 ; Chronic headaches R51 ; Environmental allergies Z91.09 ; GERD (gastroesophageal reflux disease) K21.9 ; Insomnia G47.00 ; Hypertension I10 ; Depression F32.9 and 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 [place] [address] [address] Sep, [place] [id number] [place] [address] Sep, COPD (chronic obstructive pulmonary disease) J44.9 [place] [id number] [place] [address] Sep, Bronchitis J40 [address] [address] Aug, Cervicalgia 723.1 ; Chronic hepatitis C without mention of hepatic coma 070.54 ; Essential hypertension 401.9 ; Chronic headaches R51 ; Environmental allergies Z91.09 ; GERD (gastroesophageal reflux disease) K21.9 ; Insomnia G47.00 ; Depression F32.9 and COPD (chronic obstructive pulmonary disease) J44.9 [place] [id number] [place] [address] Jul, Essential hypertension 401.9 ; Hypertension I10 ; Depression F32.9 ; Anxiety F41.9 ; Chronic headaches R51 and Cervicalgia M54.2 [address] [place] [id number] [place] [address] Jul, Essential hypertension 401.9 and Anxiety F41.9 [place] [id number] [place] [address] Jul, [place] [id number] [place] [address] Jul, [address] [address] Jul, Insomnia G47.00 ; GERD (gastroesophageal reflux disease) K21.9 ; Essential hypertension 401.9 ; Bipolar I disorder, most recent episode (or current) depressed, moderate 296.52 ; Hepatitis C B19.20 ; Depression F32.9 ; Hypertension I10 ; 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 ; Chronic headaches R51 and Chronic pain G89.[address] [address] Jun, [place] [place] [id number] [place] [address] Jun, Chronic headaches R51 ; Environmental allergies Z91.09 ; GERD (gastroesophageal reflux disease) K21.9 ; Insomnia G47.00 ; Hepatitis C B19.20 ; Hypertension I10 ; Depression F32.9 ; 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 and Chronic pain G89.[address] [address] Jun, [address] [address] Jun, Vision changes H53.[address] [address] Apr, [address] [address] Apr, Bipolar I disorder, most recent episode (or current) depressed, moderate 296.52 ; Other chronic pain 338.29 ; Chronic hepatitis C without mention of hepatic coma 070.54 ; Essential hypertension 401.9 ; Environmental allergies V15.09 and GERD (gastroesophageal reflux disease) 530.81 [place] [id number] [place] [address] Mar, [place] [id number] [place] [address] Mar, [place] [id number] [place] [address] Mar, [address] [address] Mar, [address] [address] Mar, [address] [address] Feb, Routine gynecological examination V72.31 ; Breast cancer screening V76.10 and Tobacco abuse 305.1 [facility] [address], [place] [address] Feb, [facility] [id number] [place] [address] January, [facility] [id number] [place] [address] January, [facility] [id number] [place] [address] January, [facility] [id number] [place] [address] January, [facility] [id number] [place] [address] January, Mood disorder 296.90 and Anxiety 300.00 [facility] [id number] [place] [address] January, [facility] [id number] [place] [address] Dec, Headache 784.0 ; Other chronic pain 338.29 and Cervicalgia 723.1 [facility] [address], [place] [address] Dec, [facility] [address], [place] [address] Dec, [facility] [id number] [place] [address] Nov, [facility] [id number] [place] [address] Nov, [facility] [id number] [place] [address] Oct, [facility] [address], [place] [address] Oct, [facility] [place] [facility] [address] [id number] [place] [address] Oct, 2014 [facility] [place] [facility] [address] [id number] [place] [address] Oct, 2014 [facility] [place] [facility] [address] [id number] [place] [address] Oct, 2014 [facility] [place] [facility] [address] [id number] [place] [address] Oct, 2014 [facility] [place] [facility] [address] [id number] [place] [address] Oct, 2014 [facility] [place] [facility] [address] [id number] [place] [address] Oct, 2014 [facility] [place] [facility] [address] [facility] [id number] [place] [address] Oct, [facility] [place] [facility] [address] [id number] [place] [address] Oct, 2014 [facility] [place] [facility] [address] [id number] [place] [address] Oct, [facility] [place] [facility] [address] [facility] [id number] [place] [address] Oct, [facility] [place] [facility] [address] [id number] [place] [address] Sep, [facility] [place] [facility] [address] [id number] [address] Sep, [facility] [place] [facility] [address] [id number] [place] [address] Sep, [facility] [place] [facility] [address] [id number] [place] [address] Sep, [facility] [place] [facility] [address] [id number] [place] [address] Sep, [facility] [place] [facility] [address] [id number] [place] [address] 14 Sep, 2014 [facility] [place] [facility] [address] [id number] [place] [address] Sep, [facility] [place] [facility] [address] [id number] [place] [address] Sep, [facility] [place] [facility] [address] [id number] [place] [address] Sep, [facility] [place] [facility] [address] [id number] [place] [address] Sep, [facility] [place] [facility] [address] [id number] [place] [address] Sep, [facility] [place] [facility] [address] [id number] [place] [address] Sep, [facility] [place] [facility] [address] [id number] [place] [address] Sep, [facility] [place] [facility] [address] [id number] [place] [address] Sep, [facility] [place] [facility] [address] [id number] [place] [address] Aug, [facility] [place] [facility] [address] [id number] [place] [address] Aug, [facility] [place] [facility] [address] [id number] [place] [address] Aug, [facility] [place] [facility] [address] [id number] [place] [address] Aug, [facility] [place] [facility] [address] [id number] [place] [address] Aug, [facility] [place] [facility] [address] [id number] [place] [address] Aug, [facility] [place] [facility] [address] [id number] [place] [address] Aug, [facility] [place] [facility] [address] [id number] [place] [address] Aug, [facility] [place] [facility] [address] [id number] [place] [address] Aug, [facility] [place] [facility] [address] [id number] [place] [address] Aug, [facility] [place] [facility] [address] [id number] [place] [address] Aug, [facility] [place] [facility] [address] [id number] [place] [address] Aug, [facility] [place] [facility] [address] [id number] [place] [address] Aug, [facility] [place] [facility] [address] [id number] [place] [address] Jul, [facility] [place] [facility] [address] [id number] [place] [address] Jul, [facility] [place] [facility] [address] [id number] [place] [address] Feb, [facility] [place] [facility] [address] [id number] [place] [address] Feb, [facility] [place] [facility] [address] [id number] [place] [address] January, [facility] [place] [facility] [address] [id number] [place] [address] January, [facility] [place] [facility] [address] [id number] [place] [address] January, [facility] [place] [facility] [address] [id number] [place] [address] January, [facility] [place] [facility] [address] [id number] [place] [address] Nov, [facility] [place] [facility] [address] [id number] [place] [address] Nov, [facility] [place] [facility] [address] [id number] [place] [address] Nov, [facility] [place] [facility] [address] [id number] [place] [address] Nov, [facility] [place] [facility] [address] [id number] [place] [address] Oct, [facility] [place] [facility] [address] [id number] [place] [address] Oct, [facility] [place] [facility] [address] [id number] [place] [address] Sep, [facility] [place] [facility] [address] [id number] [place] [address] Sep, [facility] [place] [facility] [address] [id number] [place] [address] Sep, [facility] [place] [facility] [address] [id number] [place] [address] Sep, [facility] [place] [facility] [address] [id number] [place] [address] Aug, [facility] [place] [facility] [address] [id number] [place] [address] Aug, [facility] [place] [facility] [address] [id number] [place] [address] Aug, [facility] [place] [facility] [address] [id number] [place] [address] Aug, [facility] [place] [facility] [address] [id number] [place] [address] 05 Aug, 2013 [facility] [place] [facility] [address] [id number] [place] [address] Aug, [facility] [place] [facility] [address] [id number] [place] [address] Aug, [facility] [place] [facility] [address] [id number] [place] [address] 29 Jul, 2013 [facility] [address] [id number] [place] [address] 29 Jul, 2013 [facility] [place] [facility] [address] [id number] [place] [address] Jul, [facility] [place] [facility] [address] [id number] [place] [address] Jul, [facility] [place] [facility] [address] [id number] [place] [address] Jul, [facility] [place] [facility] [address] [id number] [place] [address], [place] [address] Jul, [facility] [place] [facility] [address] [id number] [place] [address] Jul, [facility] [place] [facility] [address] [id number] [place] [address] Jun, [facility] [address] [id number] [place] [address] Jun, [facility] [place] [facility] [address] [id number] [place] [address] Jun, [facility] [place] [facility] [address] [facility] [id number] [place] [address] Jun, [facility] [place] [facility] [address] [id number] [place] [address] 24 Jul, 2010 [facility] [place] [facility] [address] [id number] [place] [address] 16 Jul, 2010 [facility] [place] [facility] [address] [id number] [place] [address] 10 Jul, 2010 [facility] [place] [facility] [address] [id number] [place] [address] Jul, [facility] [place] [facility] [address] [id number] [place] [address] Jun, [facility] [address] [facility] [id number], [place] [address] Jun, [facility] [address] [facility] [id number], [place] [address] Jun, [facility] [address] [facility] [id number], [place] [address] Jun, [facility] [address] [id number] [address] Jun, [facility] [address] [facility] [id number], [place] [address] Mar, [facility] [address] [facility] [id number], [place] [address] January, IMMUNIZATIONS No Known Immunizations SOCIAL HISTORY Never Assessed REASON FOR VISIT bilateral ankle swelling. been like this for 3 days. ankles dont appear to to be swollen at the present time. pt has an appt with dr de la fuente on 08/03/2017. no pitting edema noted at the present time. louise, instructed pt to call [facility] and speak with drs nurse and see what she recommends. also told pt to keep a ppt coming up. pt verbalized understanding. PLAN OF CARE VITAL SIGNS Height 65.2 in 2017-07-20 Weight 154.4 lbs 2017-07-20 Temperature 98.3 degrees Fahrenheit 2017-07-20 Heart Rate 64 bpm 2017-07-20 Respiratory Rate 20 2017-07-20 BMI 25.53 kg/m2 2017-07-20 Blood pressure systolic 148 mmHg 2017-07-20 Blood pressure diastolic 86 mmHg 2017-07-20 MEDICATIONS Medication Instructions Dosage Frequency Start Date End Date Duration Status Venlafaxine HCl ER 75MG TAKE ONE CAPSULE BY MOUTH ONCE DAILY WITH FOOD 30 Active Albuterol Sulfate (2.5 MG/3ML) 0.083% Inhalation Three times a day 3 ml 8h 15 Oct, 2015 Active Tizanidine HCl 4 MG Orally Three times a day 1 tablet as needed 8h May, May, 90 days Active Pantoprazole Sodium 40MG Orally Once a day 1 tablet 24h 90 Active Trazodone HCl 100MG Orally Once a day 1 tablet at bedtime 24h 30 Active Premarin 0.9 MG Orally Once a day 1 tablet 24h May, 90 days Active Crestor 10 MG Orally Once a day 1 tablet 24h Active Symbicort 160-4.5 mcg/act Inhalation Twice a day inhale 2 puffs by Inhalation route in the morning and evening 2 times per day 12h 20 Jul, 2014 14 May, 2018 90 days Active Percocet 5-325 MG Orally 2 times a day 1 tablet as needed 12h 16 Jun, 2017 28 days Active Lisinopril 10MG Orally Once a day 1 tablet 24h 90 days Active Trazodone HCl 100 mg Orally Once a day 1 tablet at bedtime 24h May, 30 day(s) Active Venlafaxine HCl ER 75 MG Orally Once a day 1 capsule with food 24h May, 30 day(s) Active Famotidine 20mg Orally 2 times a day TAKE ONE TABLET BY MOUTH TWICE DAILY 12h 30 Active Flonase 50 mcg/act Nasally Once a day 1 sprays by Nasal route 2 times per day in each nostril 24h Nov, 12 months Active ProAir HFA 108 (90 Base) MCG/ACT Inhalation every 4 hrs 2 puffs as needed 4h Mar, Active EPINEPHrine 0.3 MG/0.3ML Injection PRN as directed Apr, Active Cetirizine HCl 10 mg Orally Once a day 1 tablet as needed 24h 14 May, 2018 90 days Active HydrOXYzine HCl 25 MG Orally every 8 hrs 1 tablet as needed 8h 17 Jan, 2016 Active Montelukast Sodium 10 mg Orally Once [...] History child Hospitalization History low blood pressure--via [facility] 12/2017
--- OUTSIDE RECORDS SUMMARY | 2019-04-09 01:44 | XMS REPORT ---
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 Active 74278949 Problem Menopause Z78.0 Active 553112324 Problem Postmenopausal HRT (hormone replacement therapy) Z79.890 Active 02836837 Problem COPD with acute exacerbation J44.1 Active 520054764 Problem Anxiety F41.9 Active 60616494 Problem Chest pain R07.9 Active 67697814 Problem Nausea R11.0 Active 647626276 Problem Chronic headaches R51 Active 508719414 Problem Environmental allergies Z91.09 Active 744896624 Problem Insomnia G47.00 Active 729450498 Problem Hepatitis C B19.20 Active 43673811 Problem Depression F32.9 Active 01504578 Problem Chronic pain G89.29 Active 46717423 Problem GERD (gastroesophageal reflux disease) K21.9 Active 397509091 ALLERGIES No Information ENCOUNTERS Encounter Location Date Diagnosis [facility] [address] [facility] [id number] [id number] Nov, [facility] [address] [facility] [id number] [address] Nov, Bronchitis J40 [facility] [address] [id number] [id number] Nov, [facility] [address] 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 and Flu-like symptoms R68.89 [facility] ACE Alirio [place]ER[place] [id number] [place] [address] Aug, Chronic pain G89.29 ; Open bite of other finger without damage to nail, initial encounter S61.258A and Bitten by dog, initial encounter W54.0XXA [place] [id number] [place] [address] Jul, Menopause Z78.0 ; Ankle swelling, unspecified laterality M25.473 ; Chronic pain G89.29 and Tobacco abuse Z72.0 [facility] [id number] [place] [address] Jun, [facility] [address] [address] 11 Jun, 2017 Chronic pain G89.29 [facility] [id number] [place] [address] 25 May, 2017 Dysuria R30.0 ; Dehydration E86.0 and Hypertension I10 [place] [address] [address] 19 May, 2017 Menopause Z78.0 ; Depression F32.9 ; Chronic pain G89.29 ; Environmental allergies Z91.09 ; 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 and Encounter for immunization Z23 [place] [address] [address] 18 May, 2017 Chronic pain G89.29 [place] [address] [place] [address] Apr, Chronic pain G89.29 [facility] [id number] [place] [address] Apr, Routine gynecological examination Z01.419 [facility] [id number] [place] [address] Mar, Chronic pain G89.29 [facility] [id number] [place] [address] Feb, [facility] [id number] [place] [address] Feb, Chronic pain G89.29 [facility] [id number] [place] [address] Feb, [facility] [id number] [place] [address] January, Chronic pain G89.29 [facility] [id number] [place] [address] January, Routine gynecological examination Z01.419 and Breast cancer screening Z12.39 [place] [id number] [place] [address] January, Chronic pain G89.29 [facility] [id number] [place] [address] Dec, Postmenopausal HRT (hormone replacement therapy) Z79.890 [facility] [id number] [place] [address] Dec, [facility] [id number] [place] [address] Nov, Chronic pain G89.29 [facility] [id number] [place] [address] Nov, Chronic headaches R51 ; GERD (gastroesophageal reflux disease) K21.9 ; Hypertension I10 ; 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 ; Hepatitis C B19.20 ; Chronic pain G89.29 ; Pain of right thumb M79.644 ; Insomnia G47.00 ; Depression F32.9 ; Environmental allergies Z91.09 and Closed fracture of tuft of distal phalanx of finger, with routine healing, subsequent encounter S62.909D [facility] [id number] [place] [address] 15 Nov, 2016 [facility] [address] [address] Nov, [facility] [id number] [place] [address] Nov, [place] [address] [address] Nov, Hypertension I10 [place] [address] [address] Nov, [facility] [address] [address] Nov, [facility] [id number] [place] [address] Oct, Anxiety F41.9 [place] [id number] [place] [address] Oct, [facility] [id number] [place] [address] Oct, Acute upper respiratory infection, unspecified J06.9 and Other viral agents as the cause of diseases classified elsewhere B97.89 [place] [id number] [place] [address] Oct, [facility] [address] [address] 02 Oct, 2016 Right acute serous otitis media, recurrence not specified H65.01 and Pharyngitis, unspecified etiology J02.9 [place] [address]005[place], [place] [address] Sep, [facility] [address]005[address], [place] [address] Aug, Environmental allergies Z91.09 [facility] [address]005[address], [place] [address] Aug, [facility] [address] [id number], [place] [address] Jul, Atypical nevi D22.9 [facility] [address], [place] [address] Jul, [facility] [id number] [place] [address] Jul, [facility] [address] [id number], [place] [address] Jul, [facility] [address] [id number], [place] [address] Jun, [facility] [address], [place] [address] May, [facility] [address], [place] [address] May, [facility] [address], [place] [address] May, [facility] [address], [place] [address] Apr, [facility] [address], [place] [address] Apr, Chronic headaches R51 ; GERD (gastroesophageal reflux disease) K21.9 ; Hypertension I10 ; 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 ; Anxiety F41.9 ; COPD with acute exacerbation J44.1 ; Environmental allergies Z91.09 ; Depression F32.9 and Chronic pain G89.29 [facility] [id number] [place] [address] Feb, Chronic headaches R51 and Chronic pain G89.29 [place] [address] [address] January, Chronic pain G89.29 and Anxiety F41.9 [place] [id number] [place] [address] January, Depression F32.9 and Hypertension I10 [place] [id number] [place] [address] January, Chronic pain G89.29 [place] [address] [address] Dec, [place] [id number] [place] [address] Dec, [place] [address] [address] Dec, Chronic pain G89.29 ; Chronic headaches R51 ; Environmental allergies Z91.09 ; GERD (gastroesophageal reflux disease) K21.9 ; Insomnia G47.00 ; Hypertension I10 and COPD with acute exacerbation J44.1 [place] [id number] [place] [address] Dec, [place] [id number] [place] [address] Dec, Chest pain R07.9 ; GERD (gastroesophageal reflux disease) K21.9 and Nausea R11.0 [place] [id number] [place] [address] Nov, [place] [address] [address] Oct, Hypertension I10 ; Anxiety F41.9 ; GERD (gastroesophageal reflux disease) K21.9 ; Depression F32.9 ; Insomnia G47.00 ; Chronic headaches R51 and COPD with acute exacerbation J44.1 [place] [id number] [place] [address] Oct, [facility] [id number] [place] [address] Oct, [facility] [id number] [place] [address] Oct, [place] [address] [address] Oct, [place] [id number] [place] [address] Oct, Flu-like symptoms R68.89 and COPD with acute exacerbation J44.1 [place] [id number] [place] [address] Oct, [address] [address] Oct, Left shoulder pain M25.512 ; Chronic headaches R51 ; Environmental allergies Z91.09 ; GERD (gastroesophageal reflux disease) K21.9 ; Insomnia G47.00 ; Hypertension I10 ; Depression F32.9 and 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 [place] [id number] [place] [address] Sep, [place] [id number] [place] [address] Sep, COPD (chronic obstructive pulmonary disease) J44.9 [place] [id number] [place] [address] Sep, Bronchitis J40 [id number] [place] [address] Aug, Cervicalgia 723.1 ; Chronic hepatitis C without mention of hepatic coma 070.54 ; Essential hypertension 401.9 ; Chronic headaches R51 ; Environmental allergies Z91.09 ; GERD (gastroesophageal reflux disease) K21.9 ; Insomnia G47.00 ; Depression F32.9 and COPD (chronic obstructive pulmonary disease) J44.9 [place] [id number] [place] [address] Jul, Essential hypertension 401.9 ; Hypertension I10 ; Depression F32.9 ; Anxiety F41.9 ; Chronic headaches R51 and Cervicalgia M54.[address] [address] Jul, Essential hypertension 401.9 and Anxiety F41.[address] [address] Jul, [address] [address] Jul, [address] [address] Jul, Insomnia G47.00 ; GERD (gastroesophageal reflux disease) K21.9 ; Essential hypertension 401.9 ; Bipolar I disorder, most recent episode (or current) depressed, moderate 296.52 ; Hepatitis C B19.20 ; Depression F32.9 ; Hypertension I10 ; 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 ; Chronic headaches R51 and Chronic pain G89.[address] [address] Jun, [address] [address] Jun, Chronic headaches R51 ; Environmental allergies Z91.09 ; GERD (gastroesophageal reflux disease) K21.9 ; Insomnia G47.00 ; Hepatitis C B19.20 ; Hypertension I10 ; Depression F32.9 ; 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 and Chronic pain G89.29 [address] [id number] [place] [address] Jun, [address] [address] Jun, Vision changes H53.9 [facility] [address], [place] [address] Apr, [facility] [id number] [place] [address] Apr, Bipolar I disorder, most recent episode (or current) depressed, moderate 296.52 ; Other chronic pain 338.29 ; Chronic hepatitis C without mention of hepatic coma 070.54 ; Essential hypertension 401.9 ; Environmental allergies V15.09 and GERD (gastroesophageal reflux disease) 530.81 [facility] [address], [place] [address] Mar, [facility] [id number] [place] [address] Mar, [facility] [id number] [place] [address] Mar, [facility] [id number] [place] [address] Mar, [facility] [address], [place] [address] Mar, [facility] [address], [place] [address] Feb, Routine gynecological examination V72.31 ; Breast cancer screening V76.10 and Tobacco abuse 305.1 [facility] [address], [place] [address] Feb, [facility] [address], [place] [address] January, [facility] [id number] [place] [address] January, [facility] [address], [place] [address] January, [facility] [address], [place] [address] January, [facility] [address], [place] [address] January, Mood disorder 296.90 and Anxiety 300.00 [facility] [id number] [place] [address] January, [facility] [id number] [place] [address] Dec, Headache 784.0 ; Other chronic pain 338.29 and Cervicalgia 723.1 [facility] [id number] [place] [address] Dec, [facility] [id number] [place] [address] Dec, [facility] [id number] [place] [address] Nov, [facility] [id number] [place] [address] Nov, [facility] [address], [place] [address] Oct, [facility] [address] [place] [address] Oct, [facility] [address], [place] [address] Oct, [facility] [address] [place] [address] Oct, [facility] [address], [place] [address] Oct, [facility] [address] [place] [address] Oct, [facility] [address], [place] [address] Oct, [facility] [id number] [place] [address] 19 Oct, 2014 [facility] [address] [id number] [place] [address] 18 Oct, 2014 [facility] [place] [facility] [address] [id number] [place] [address] 18 Oct, 2014 [facility] [place] [facility] [address] [id number] [place] [address] 17 Oct, 2014 [facility] [place] [facility] [address] [id number] [place] [address] 17 Oct, 2014 [facility] [address] [id number] [place] [address] 20 Sep, 2014 [facility] [place] [facility] [address] [id number] [place] [address] Sep, [facility] [place] [facility] [address] [id number] [place] [address] Sep, [facility] [address] [id number] [place] [address] Sep, [facility] [place] [facility] [address] [id number] [place] [address] Sep, [facility] [address] [facility] [id number] [place] [address] Sep, [facility] [place] [facility] [address] [id number] [place] [address] Sep, [facility] [place] [facility] [address] [id number] [place] [address] Sep, [facility] [place] [facility] [address] [id number] [place] [address] Sep, [facility] [place] [facility] [address] [id number] [place] [address] Sep, [facility] [place] [facility] [address] [id number] [place] [address] Sep, [facility] [place] [facility] [address] [id number] [place] [address] Sep, [facility] [place] [facility] [address] [id number] [place] [address] Sep, [facility] [place] [facility] [address] [id number] [place] [address] Sep, [facility] [place] [facility] [address] [id number] [place] [address] Aug, [facility] [place] [facility] [address] [id number] [place] [address] Aug, [facility] [place] [facility] [address] [id number] [place] [address] Aug, [facility] [place] [facility] [address] [id number] [place] [address] Aug, [facility] [place] [facility] [address] [id number] [place] [address] Aug, [facility] [place] [facility] [address] [id number] [place] [address] Aug, [facility] [place] [facility] [address] [id number] [place] [address] Aug, [facility] [place] [facility] [address] [id number] [place] [address] Aug, [facility] [place] [facility] [address] [id number] [place] [address] Aug, [facility] [place] [facility] [address] [id number] [place] [address] Aug, [facility] [place] [facility] [address] [id number] [place] [address] Aug, [facility] [place] [facility] [address] [id number] [place] [address] Aug, [facility] [place] [facility] [address] [id number], [place] [address] Aug, [facility] [place] [facility] [address] [id number] [place] [address] Jul, [facility] [place] [facility] [address] [id number] [place] [address] Jul, [facility] [place] [facility] [address] [facility] [id number] [place] [address] Feb, [facility] [place] [facility] [address] [id number] [place] [address] Feb, [facility] [place] [facility] [address] [id number] [place] [address] January, [facility] [place] [facility] [address] [id number] [place] [address] January, [facility] [place] [facility] [id number] [place] [address] January, [facility] [place] [facility] [address] [facility] [id number] [place] [address] January, [facility] [place] [facility] [address] [id number] [place] [address] Nov, [facility] [place] [facility] [address] [facility] [id number] [place] [address] Nov, [facility] [place] [facility] [address] [id number] [place] [address] Nov, [facility] [place] [facility] [address] [facility] [id number] [place] [address] Nov, [facility] [place] [facility] [address] [id number] [place] [address] Oct, [facility] [place] [facility] [address] [id number] [place] [address] Oct, [facility] [place] [facility] [address] [facility] [id number] [place] [address] Sep, [facility] [place] [facility] [address] [id number] [place] [address] Sep, [facility] [place] [facility] [address] [id number] [place] [address] Sep, [facility] [place] [facility] [address] [id number] [place] [address] Sep, [facility] [place] [facility] [address] [id number] [place] [address] Aug, [facility] [place] [facility] [address] [id number] [place] [address] Aug, [facility] [place] [facility] [address] [id number] [place] [address] Aug, [facility] [place] [facility] [address] [id number] [place] [address] Aug, [facility] [place] [facility] [address] [id number] [place] [address] Aug, [facility] [place] [facility] [address] [id number] [place] [address] Aug, [facility] [place] [facility] [address] [id number] [place] [address] Aug, [facility] [place] [facility] [address] [id number] [place] [address] Jul, [facility] [place] [facility] [address] [id number] [place] [address] Jul, [facility] [place] [facility] [address] [id number] [place] [address] Jul, [facility] [place] [facility] [address] [id number] [place] [address] Jul, [facility] [place] [facility] [address] [id number] [place] [address] Jul, [facility] [place] [facility] [address] [id number] [place] [address] Jul, [facility] [place] [facility] [address] [id number] [place] [address] 08 Jul, 2013 [facility] [place] [facility] [address] [id number] [place] [address] Jun, [facility] [place] [facility] [address] [id number] [place] [address] Jun, [facility] [place] [facility] [address] [id number] [place] [address] 30 Jun, 2013 [facility] [place] [facility] [address] [id number] [place] [address] Jun, [facility] [place] [facility] [address] [id number] [place] [address] Jul, [facility] [place] [facility] [address] [id number] [place] [address] 16 Jul, 2010 [facility] [place] [facility] [address] [id number], [place] [address] Jul, [facility] [place] [facility] [address] [id number], [place] [address] Jul, [facility] [place] [facility] [address] [id number] [place] [address] Jun, [facility] [place] [facility] [address] [id number], [place] [address] 31 Jun, 2009 [facility] [place] [facility] [address] [id number], [place] [address] 29 Jun, 2009 [facility] [place] [facility] [address] [id number] [place] [address] 28 Jun, 2009 [facility] [place] [facility] [address] [id number], [place] [address] 15 Jun, 2009 [facility] [place] [facility] [address] [id number], [place] [address] 16 Mar, 2009 [facility] [place] [facility] [address] [facility] [id number] [place] [address] January, IMMUNIZATIONS No Known Immunizations SOCIAL HISTORY Never Assessed REASON FOR VISIT Controlled Med Refill PLAN OF CARE VITAL SIGNS MEDICATIONS Medication Instructions Dosage Frequency Start Date End Date Duration Status Percocet 5-325 MG Orally 2 times a day 1 tablet as needed 12h Feb, 28 days Active RESULTS No Results PROCEDURES [...]
[2019-04-09 01:46] LABS: ALANINE AMINOTRANSFERASE 9 U/L (0-55); ALBUMIN 4.1 GM/DL (3.2-4.5); ALKALINE PHOSPHATASE 77 U/L (40-136); BILIRUBIN,TOTAL 1.1 MG/DL (0.1-1.0); BUN/CREATININE RATIO 7; CALCIUM 9.5 MG/DL (8.5-10.1); CARBON DIOXIDE 25 MMOL/L (21-32); CHLORIDE 97 MMOL/L (98-107); CREATININE SERUM 1.19 MG/DL (0.60-1.30); GFR ESTIMATED 48; GLUCOSE 163 MG/DL (70-105); MAGNESIUM 1.9 MG/DL (1.8-2.4); POTASSIUM 3.3 MMOL/L (3.6-5.0); SODIUM 134 MMOL/L (135-145); TOTAL PROTEIN 6.3 GM/DL (6.4-8.2)
--- OUTSIDE RECORDS SUMMARY | 2019-04-09 01:46 | XMS REPORT ---
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 Active 50664349 Problem Menopause Z78.0 Active 446455888 Problem Postmenopausal HRT (hormone replacement therapy) Z79.890 Active 09189771 Problem COPD with acute exacerbation J44.1 Active 601873800 Problem Anxiety F41.9 Active 85271558 Problem Chest pain R07.9 Active 80823897 Problem Nausea R11.0 Active 765658861 Problem Chronic headaches R51 Active 074478000 Problem Environmental allergies Z91.09 Active 057461401 Problem Insomnia G47.00 Active 872617211 Problem Hepatitis C B19.20 Active 25635966 Problem Depression F32.9 Active 82860648 Problem Chronic pain G89.29 Active 74219972 Problem GERD (gastroesophageal reflux disease) K21.9 Active 909110499 ALLERGIES No Information ENCOUNTERS Encounter Location Date Diagnosis [facility] [address] [address] Feb, Poison elda L23.7 [facility] [id number] [id number] Feb, Chronic pain G89.29 [facility] [id number] [place] [address] Feb, Bronchitis J40 [facility] [id number] [id number] Feb, [facility] [place] [id number] Feb, Chronic pain G89.29 [address] [place] [id number] January, Vaginal discharge N89.8 ; Increased urinary frequency R35.0 ; Acute cystitis with hematuria N30.01 ; Other specified bacterial agents as the cause of diseases classified elsewhere B96.89 and Acute vaginitis N76.0 [place] [id number] [place] [id number] January, Chronic pain G89.29 and Candidiasis B37.9 [facility] [address] [place] [address] January, [facility] [place] [id number] [place] [address] Dec, Acute frontal sinusitis, recurrence not specified J01.10 and Cough R05 [place] [id number] [place] [id number] Dec, [place] [id number] [place] [address] [id number] Nov, [facility] [id number] [place] [address] Nov, Bronchitis J40 [address] [id number] [id number] Nov, [facility] [id number] [place] [address] Oct, COPD with acute exacerbation J44.[address] [place] [address] [id number] Oct, Chronic pain G89.29 [place] [id number] [place] [address] [id number] Oct, [place] [id number] [place] [address] [id number] Sep, Chronic pain G89.29 ; Depression F32.9 ; Anxiety F41.9 ; 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 and Flu-like symptoms R68.89 [facility] [id number] [address] Aug, Chronic pain G89.29 ; Open bite of other finger without damage to nail, initial encounter S61.258A and Bitten by dog, initial encounter W54.0XXA [place] [id number] [place] [address] Jul, Menopause Z78.0 ; Ankle swelling, unspecified laterality M25.473 ; Chronic pain G89.29 and Tobacco abuse Z72.0 [facility] [address] [address] Jun, [place] [address] [address] Jun, Chronic pain G89.29 [facility] [address] [address] May, Dysuria R30.0 ; Dehydration E86.0 and Hypertension I10 [place] [address] [address] 19 May, 2017 Menopause Z78.0 ; Depression F32.9 ; Chronic pain G89.29 ; Environmental allergies Z91.09 ; 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 and Encounter for immunization Z23 [place] [id number] [place] [address] May, Chronic pain G89.29 [place] [id number] [place] [address] Apr, Chronic pain G89.29 [place] [address] [address] Apr, Routine gynecological examination Z01.419 [place] [id number] [place] [address] Mar, Chronic pain G89.29 [place] [address], [place] [address] Feb, [place] [id number] [place] [address] Feb, Chronic pain G89.29 [place] [id number] [place] [address] Feb, [place] [address] [address] January, Chronic pain G89.29 [place] [id number] [place] [address] January, Routine gynecological examination Z01.419 and Breast cancer screening Z12.39 [place] [id number] [place] [address] January, Chronic pain G89.29 [place] [id number] [place] [address] Dec, Postmenopausal HRT (hormone replacement therapy) Z79.890 [place] [id number] [place] [address] Dec, [place] [id number] [place] [address] Nov, Chronic pain G89.29 [place] [id number] [place] [address] Nov, Chronic headaches R51 ; GERD (gastroesophageal reflux disease) K21.9 ; Hypertension I10 ; 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 ; Hepatitis C B19.20 ; Chronic pain G89.29 ; Pain of right thumb M79.644 ; Insomnia G47.00 ; Depression F32.9 ; Environmental allergies Z91.09 and Closed fracture of tuft of distal phalanx of finger, with routine healing, subsequent encounter S62.639D [place] [id number] [place] [address] Nov, [place] [address] [address] Nov, [facility] [id number] [place] [address] Nov, [facility] [id number] [place] [address] 08 Nov, 2016 Hypertension I10 [facility] [address] [address] Nov, [facility] [id number] [place] [address] Nov, [facility] [id number] [place] [address] Oct, Anxiety F41.9 [facility] [id number] [place] [address] Oct, [facility] [id number] [place] [address] Oct, Acute upper respiratory infection, unspecified J06.9 and Other viral agents as the cause of diseases classified elsewhere B97.89 [facility] [id number] [place] [address] Oct, [facility] [id number] [place] [address] Oct, Right acute serous otitis media, recurrence not specified H65.01 and Pharyngitis, unspecified etiology J02.9 [facility] [id number] [address] Sep, [facility] [id number] [place] [address] Aug, Environmental allergies Z91.09 [facility] [address] [place] [address] Aug, [facility] [id number] [place] [address] Jul, Atypical nevi D22.9 [facility] [address] [address] 15 Jul, 2016 [facility] [id number] [address] 10 Jul, 2016 [facility] [id number] [place] [address] 07 Jul, 2016 [facility] [id number] [place] [address] Jun, [facility] [id number] [place] [address] 23 May, 2016 [facility] [id number] [place] [address] May, [facility] [id number] [place] [address] May, [facility] [address] [address] Apr, [facility] [id number] [place] [address] Apr, Chronic headaches R51 ; GERD (gastroesophageal reflux disease) K21.9 ; Hypertension I10 ; 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 ; Anxiety F41.9 ; COPD with acute exacerbation J44.1 ; Environmental allergies Z91.09 ; Depression F32.9 and Chronic pain G89.29 [facility] [address] [address] Feb, Chronic headaches R51 and Chronic pain G89.29 [facility] [address] [place] [address] January, Chronic pain G89.29 and Anxiety F41.9 [facility] [address] [address] January, Depression F32.9 and Hypertension I10 [facility] [id number] [place] [address] January, Chronic pain G89.29 [facility] [address] [address] Dec, [facility] [id number] [place] [address] Dec, [facility] [address] [address] Dec, Chronic pain G89.29 ; Chronic headaches R51 ; Environmental allergies Z91.09 ; GERD (gastroesophageal reflux disease) K21.9 ; Insomnia G47.00 ; Hypertension I10 and COPD with acute exacerbation J44.1 [place] [address] [address] Dec, [place] [address] [address] Dec, Chest pain R07.9 ; GERD (gastroesophageal reflux disease) K21.9 and Nausea R11.[address] [address] Nov, [place] [id number] [place] [address] Oct, Hypertension I10 ; Anxiety F41.9 ; GERD (gastroesophageal reflux disease) K21.9 ; Depression F32.9 ; Insomnia G47.00 ; Chronic headaches R51 and COPD with acute exacerbation J44.1 [place] [id number] [place] [address] Oct, [place] [address] [address] Oct, [place] [id number] [place] [address] Oct, [place] [address] [address] 17 Oct, [address] [address] 15 Oct, 2015 Flu-like symptoms R68.89 and COPD with acute exacerbation J44.[address] [address] 12 Oct, [address] [address] Oct, Left shoulder pain M25.512 ; Chronic headaches R51 ; Environmental allergies Z91.09 ; GERD (gastroesophageal reflux disease) K21.9 ; Insomnia G47.00 ; Hypertension I10 ; Depression F32.9 and COPD (chronic obstructive pulmonary disease) with emphysema J43.[address] [address] Sep, [address] [address] Sep, COPD (chronic obstructive pulmonary disease) J44.[address] [address] Sep, Bronchitis J40 [address] [address] Aug, Cervicalgia 723.1 ; Chronic hepatitis C without mention of hepatic coma 070.54 ; Essential hypertension 401.9 ; Chronic headaches R51 ; Environmental allergies Z91.09 ; GERD (gastroesophageal reflux disease) K21.9 ; Insomnia G47.00 ; Depression F32.9 and COPD (chronic obstructive pulmonary disease) J44.[address] [address] Jul, Essential hypertension 401.9 ; Hypertension I10 ; Depression F32.9 ; Anxiety F41.9 ; Chronic headaches R51 and Cervicalgia M54.[address] [address] Jul, Essential hypertension 401.9 and Anxiety F41.9 [place] [id number] [place] [address] Jul, [address] [address] Jul, [place] [id number] [place] [address] Jul, Insomnia G47.00 ; GERD (gastroesophageal reflux disease) K21.9 ; Essential hypertension 401.9 ; Bipolar I disorder, most recent episode (or current) depressed, moderate 296.52 ; Hepatitis C B19.20 ; Depression F32.9 ; Hypertension I10 ; 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 ; Chronic headaches R51 and Chronic pain G89.[address] [address] Jun, [address] [address] Jun, Chronic headaches R51 ; Environmental allergies Z91.09 ; GERD (gastroesophageal reflux disease) K21.9 ; Insomnia G47.00 ; Hepatitis C B19.20 ; Hypertension I10 ; Depression F32.9 ; 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 and Chronic pain G89.29 [place] [id number] [place] [address] Jun, [address] [address] Jun, Vision changes H53.9 [place] [id number] [place] [address] Apr, [address] [address] Apr, Bipolar I disorder, most recent episode (or current) depressed, moderate 296.52 ; Other chronic pain 338.29 ; Chronic hepatitis C without mention of hepatic coma 070.54 ; Essential hypertension 401.9 ; Environmental allergies V15.09 and GERD (gastroesophageal reflux disease) 530.81 [facility] [address] [address] Mar, [facility] [address], [place] [address] Mar, [facility] [address], [place] [address] Mar, [facility] [id number] [address] Mar, [facility] [id number] [place] [address] Mar, [facility] [id number] [address] Feb, Routine gynecological examination V72.31 ; Breast cancer screening V76.10 and Tobacco abuse 305.1 [facility] [address], [place] [address] Feb, [facility] [address], [place] [address] January, [facility] [address], [place] [address] January, [facility] [address], [place] [address] January, [facility] [address], [place] [address] January, [facility] [address], [place] [address] January, Mood disorder 296.90 and Anxiety 300.00 [facility] [address], [place] [address] January, [facility] [address], [place] [address] Dec, Headache 784.0 ; Other chronic pain 338.29 and Cervicalgia 723.1 [facility] [address], [place] [address] 14 Dec, 2014 [facility] [address], [place] [address] 13 Dec, 2014 [facility] [id number] [place] [address] 18 Nov, 2014 [facility] [place] [facility] [address] [facility] [id number] [place] [address] 18 Nov, 2014 [facility] [id number] [place] [address] Oct, [facility] [place] [facility] [id number] [place] [address] Oct, [facility] [id number] [place] [address] Oct, [facility] [address], [place] [address] 26 Oct, 2014 [facility] [address] [place] [address] Oct, [facility] [address] [address] 20 Oct, 2014 [facility] [place] [facility] [address], [place] [address] Oct, [facility] [address], [place] [address] 19 Oct, 2014 [facility] [place] [facility] [address], [place] [address] 18 Oct, 2014 [facility] [place] [facility] [address], [place] [address] 18 Oct, 2014 [facility] [place] [facility] [address], [place] [address] Oct, [facility] [place] [facility] [address] [id number] [place] [address] Oct, [facility] [place] [facility] [address] [id number] [place] [address] Sep, [facility] [place] [facility] [address] [id number] [place] [address] Sep, [facility] [place] [facility] [address] [id number] [place] [address] Sep, [facility] [place] [facility] [address] [id number] [place] [address] Sep, [facility] [place] [facility] [address] [id number] [place] [address] Sep, [facility] [place] [facility] [address] [id number] [place] [address] Sep, [facility] [place] [facility] [address] [id number] [place] [address] Sep, [facility] [place] [facility] [address] [id number] [place] [address] Sep, [facility] [place] [facility] [address] [id number] [place] [address] Sep, [facility] [place] [facility] [address] [id number], [place] [address] Sep, [facility] [place] [facility] [address] [id number], [place] [address] Sep, [facility] [place] [facility] [address] [id number] [place] [address] Sep, [facility] [place] [facility] [address] [id number], [place] [address] Sep, [facility] [place] [facility] [address] [id number] [place] [address] Sep, [facility] [place] [facility] [address] [id number] [place] [address] Aug, [facility] [address] [id number] [place] [address] Aug, [facility] [place] [facility] [address] [id number] [place] [address] Aug, [facility] [place] [facility] [address] [id number] [place] [address] Aug, [facility] [place] [facility] [address] [id number] [place] [address] Aug, [facility] [place] [facility] [address] [id number] [place] [address] Aug, [facility] [place] [facility] [address] [id number] [place] [address] Aug, [facility] [address] [id number] [place] [address] Aug, [facility] [place] [facility] [address] [id number] [place] [address] Aug, [facility] [place] [facility] [address] [id number] [place] [address] Aug, [facility] [place] [facility] [address] [id number] [place] [address] Aug, [facility] [place] [facility] [address] [id number] [place] [address] Aug, [facility] [place] [facility] [address] [id number] [place] [address] Aug, [facility] [place] [facility] [address] [id number] [place] [address] Jul, [facility] [place] [facility] [address] [id number] [place] [address] Jul, [facility] [place] [facility] [address] [id number] [place] [address] Feb, [facility] [place] [facility] [address] [id number] [place] [address] Feb, [facility] [place] [facility] [address] [id number] [place] [address] January, [facility] [place] [facility] [address] [id number] [place] [address] January, [facility] [place] [facility] [address] [id number] [place] [address] January, [facility] [place] [facility] [address] [id number] [place] [address] January, [facility] [place] [facility] [address] [id number] [place] [address] Nov, [facility] [place] [facility] [address] [id number] [place] [address] Nov, [facility] [place] [facility] [address] [id number] [place] [address] Nov, [facility] [place] [facility] [address] [id number] [place] [address] Nov, [facility] [place] [facility] [address] [id number] [place] [address] Oct, [facility] [place] [facility] [address] [id number] [place] [address] Oct, [facility] [place] [facility] [address] [id number] [place] [address] Sep, [facility] [place] [facility] [address] [id number] [place] [address] Sep, [facility] [place] [facility] [address] [id number] [place] [address] Sep, [facility] [place] [facility] [address] [id number] [place] [address] Sep, [facility] [place] [facility] [address] [id number], [place] [address] Aug, [facility] [address] [id number] [place] [address] Aug, [facility] [place] [facility] [address] [facility] [id number], [place] [address] Aug, [facility] [address] [facility] [id number] [place] [address] Aug, [facility] [place] [facility] [address] [facility] [id number][place] [address] 05 Aug, 2013 [facility] [id number] [place] [address], [place] [address] Aug, [facility] [place] [facility] [address] [facility] [id number] [place] [address] Aug, [facility] [id number] [address] Jul, [facility] [place] [facility] [address] [facility] [id number], [place] [address] Jul, [facility] [place] [facility] [address] [id number] [address] Jul, [facility] [place] [facility] [address] [id number] [address] Jul, [facility] [place] [facility] [address] [facility] [id number], [place] [address] Jul, [facility] [place] [facility] [address] [facility] [id number], [place] [address] 12 Jul, 2013 [facility] [place] [facility] [address] [facility] [id number], [place] [address] 08 Jul, 2013 [facility] [place] [facility] [address] [facility] [id number], [place] [address] 31 Jun, 2013 [facility] [place] [facility] [address] [id number] [address] 30 Jun, 2013 [facility] [place] [facility] [address] [facility] [id number], [place] [address] Jun, [facility] [address] [facility] [id number], [place] [address] Jun, [facility] [address] [facility] [id number], [place] [address] Jul, [facility] [address] [facility] [id number], [place] [address] Jul, [facility] [address] [facility] [id number], [place] [address] Jul, [facility] [id number] [address] Jul, [facility] [address] [id number] [address] Jun, [facility] [id number] [address] Jun, [facility] [address], [place] [address] Jun, [facility] [address] [address] Jun, [facility] [address] [address] Jun, [facility] [address] [address] Mar, [facility] [address] [id number] [address] January, IMMUNIZATIONS No Known Immunizations SOCIAL HISTORY Never Assessed REASON FOR VISIT Rx Percocet refill PLAN OF CARE VITAL SIGNS MEDICATIONS Medication Instructions Dosage Frequency Start Date End Date Duration Status Percocet 5-325 MG Orally 3 times a day 1 tablet as needed 8h Oct, 28 days Active RESULTS No Results PROCEDURES [...] child Hospitalization History low blood pressure--via [facility] 12/2017
--- OUTSIDE RECORDS SUMMARY | 2019-04-09 01:46 | XMS REPORT ---
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 Active 02352008 Problem Menopause Z78.0 Active 339074196 Problem Postmenopausal HRT (hormone replacement therapy) Z79.890 Active 51430745 Problem COPD with acute exacerbation J44.1 Active 594033298 Problem Anxiety F41.9 Active 08332790 Problem Chest pain R07.9 Active 19852067 Problem Nausea R11.0 Active 111091877 Problem Chronic headaches R51 Active 443208626 Problem Environmental allergies Z91.09 Active 989170775 Problem Insomnia G47.00 Active 405421433 Problem Hepatitis C B19.20 Active 93129563 Problem Depression F32.9 Active 21251905 Problem Chronic pain G89.29 Active 09695955 Problem GERD (gastroesophageal reflux disease) K21.9 Active 507138781 ALLERGIES No Information ENCOUNTERS Encounter Location Date Diagnosis [facility] [address] [facility] [id number] [id number] Nov, [facility] [address] [facility] [id number] [address] Nov, Bronchitis J40 [facility] [address] [id number] [id number] Nov, [facility] [address] [facility] [id number], [place] [address] Oct, COPD with acute exacerbation J44.1 [facility] [address] [id number] [id number] 12 Oct, 2017 Chronic pain G89.29 [facility] [address] [facility] [id number] [id number] Oct, [facility] [address] [id number] [id number] Sep, Chronic pain G89.29 ; Depression F32.9 ; Anxiety F41.9 ; 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 and Flu-like symptoms R68.89 [facility] [address] [place] [id number] [place] [address] Aug, Chronic pain G89.29 ; Open bite of other finger without damage to nail, initial encounter S61.258A and Bitten by dog, initial encounter W54.0XXA [place] [id number] [place] [address] Jul, Menopause Z78.0 ; Ankle swelling, unspecified laterality M25.473 ; Chronic pain G89.29 and Tobacco abuse Z72.0 [facility] [id number] [place] [address] Jun, [facility] [address] [address] 11 Jun, 2017 Chronic pain G89.29 [facility] [id number] [place] [address] 25 May, 2017 Dysuria R30.0 ; Dehydration E86.0 and Hypertension I10 [place] [address] [address] 19 May, 2017 Menopause Z78.0 ; Depression F32.9 ; Chronic pain G89.29 ; Environmental allergies Z91.09 ; 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 and Encounter for immunization Z23 [place] [address] [address] 18 May, 2017 Chronic pain G89.29 [place] [address] [place] [address] Apr, Chronic pain G89.29 [facility] [id number] [place] [address] Apr, Routine gynecological examination Z01.419 [facility] [id number] [place] [address] Mar, Chronic pain G89.29 [facility] [id number] [place] [address] Feb, [facility] [id number] [place] [address] Feb, Chronic pain G89.29 [facility] [id number] [place] [address] Feb, [facility] [id number] [place] [address] January, Chronic pain G89.29 [facility] [id number] [place] [address] January, Routine gynecological examination Z01.419 and Breast cancer screening Z12.39 [place] [id number] [place] [address] January, Chronic pain G89.29 [facility] [id number] [place] [address] Dec, Postmenopausal HRT (hormone replacement therapy) Z79.890 [facility] [id number] [place] [address] Dec, [facility] [id number] [place] [address] Nov, Chronic pain G89.29 [facility] [id number] [place] [address] Nov, Chronic headaches R51 ; GERD (gastroesophageal reflux disease) K21.9 ; Hypertension I10 ; 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 ; Hepatitis C B19.20 ; Chronic pain G89.29 ; Pain of right thumb M79.644 ; Insomnia G47.00 ; Depression F32.9 ; Environmental allergies Z91.09 and Closed fracture of tuft of distal phalanx of finger, with routine healing, subsequent encounter S62.479D [facility] [id number] [place] [address] 15 Nov, 2016 [facility] [address] [address] Nov, [facility] [id number] [place] [address] Nov, [place] [address] [address] Nov, Hypertension I10 [place] [address] [address] Nov, [facility] [address] [address] Nov, [facility] [id number] [place] [address] Oct, Anxiety F41.9 [place] [id number] [place] [address] Oct, [facility] [id number] [place] [address] Oct, Acute upper respiratory infection, unspecified J06.9 and Other viral agents as the cause of diseases classified elsewhere B97.89 [place] [id number] [place] [address] Oct, [facility] [address] [address] 02 Oct, 2016 Right acute serous otitis media, recurrence not specified H65.01 and Pharyngitis, unspecified etiology J02.9 [place] [address] [address] Sep, [facility] [address], [place] [address] Aug, Environmental allergies Z91.09 [facility] [address], [place] [address] Aug, [facility] [address] [id number] [address] Jul, Atypical nevi D22.9 [facility] [address], [place] [address] Jul, [facility] [id number] [place] [address] Jul, [facility] [address] [id number] [address] Jul, [facility] [address] [id number] [address] Jun, [facility] [address], [place] [address] May, [facility] [address], [place] [address] May, [facility] [address], [place] [address] May, [facility] [address], [place] [address] Apr, [facility] [address], [place] [address] Apr, Chronic headaches R51 ; GERD (gastroesophageal reflux disease) K21.9 ; Hypertension I10 ; 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 ; Anxiety F41.9 ; COPD with acute exacerbation J44.1 ; Environmental allergies Z91.09 ; Depression F32.9 and Chronic pain G89.29 [facility] [id number] [place] [address] Feb, Chronic headaches R51 and Chronic pain G89.29 [place] [address] [address] January, Chronic pain G89.29 and Anxiety F41.9 [place] [id number] [place] [address] January, Depression F32.9 and Hypertension I10 [place] [id number] [place] [address] January, Chronic pain G89.29 [place] [address] [address] Dec, [place] [id number] [place] [address] Dec, [place] [address] [address] Dec, Chronic pain G89.29 ; Chronic headaches R51 ; Environmental allergies Z91.09 ; GERD (gastroesophageal reflux disease) K21.9 ; Insomnia G47.00 ; Hypertension I10 and COPD with acute exacerbation J44.1 [place] [id number] [place] [address] Dec, [place] [id number] [place] [address] Dec, Chest pain R07.9 ; GERD (gastroesophageal reflux disease) K21.9 and Nausea R11.0 [place] [id number] [place] [address] Nov, [place] [address] [address] Oct, Hypertension I10 ; Anxiety F41.9 ; GERD (gastroesophageal reflux disease) K21.9 ; Depression F32.9 ; Insomnia G47.00 ; Chronic headaches R51 and COPD with acute exacerbation J44.1 [place] [id number] [place] [address] Oct, [facility] [id number] [place] [address] Oct, [facility] [id number] [place] [address] Oct, [place] [address] [address] Oct, [place] [id number] [place] [address] Oct, Flu-like symptoms R68.89 and COPD with acute exacerbation J44.1 [place] [id number] [place] [address] Oct, [address] [address] Oct, Left shoulder pain M25.512 ; Chronic headaches R51 ; Environmental allergies Z91.09 ; GERD (gastroesophageal reflux disease) K21.9 ; Insomnia G47.00 ; Hypertension I10 ; Depression F32.9 and 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9 and COPD (chronic obstructive pulmonary disease) J44.9 [place] [id number] [place] [address] Jul, Essential hypertension 401.9 ; Hypertension I10 ; Depression F32.9 ; Anxiety F41.9 ; Chronic headaches R51 and Cervicalgia M54.[address] [address] Jul, Essential hypertension 401.9 and Anxiety F41.[address] [address] Jul, [address] [address] Jul, [address] [address] Jul, Insomnia G47.00 ; GERD (gastroesophageal reflux disease) K21.9 ; Essential hypertension 401.9 ; Bipolar I disorder, most recent episode (or current) depressed, moderate 296.52 ; Hepatitis C B19.20 ; Depression F32.9 ; Hypertension I10 ; 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 ; Chronic headaches R51 and Chronic pain G89.[address] [address] Jun, [address] [address] Jun, Chronic headaches R51 ; Environmental allergies Z91.09 ; GERD (gastroesophageal reflux disease) K21.9 ; Insomnia G47.00 ; Hepatitis C B19.20 ; Hypertension I10 ; Depression F32.9 ; 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 and Chronic pain G89.29 [place] [id number] [place] [address] Jun, [address] [address] Jun, Vision changes H53.9 [facility] [address] [address] Apr, [facility] [id number] [place] [address] Apr, Bipolar I disorder, most recent episode (or current) depressed, moderate 296.52 ; Other chronic pain 338.29 ; Chronic hepatitis C without mention of hepatic coma 070.54 ; Essential hypertension 401.9 ; Environmental allergies V15.09 and GERD (gastroesophageal reflux disease) 530.81 [facility] [address], [place] [address] Mar, [facility] [id number] [place] [address] Mar, [facility] [id number] [place] [address] Mar, [facility] [id number] [place] [address] Mar, [facility] [address], [place] [address] Mar, [facility] [address], [place] [address] Feb, Routine gynecological examination V72.31 ; Breast cancer screening V76.10 and Tobacco abuse 305.1 [facility] [address], [place] [address] Feb, [facility] [address], [place] [address] January, [facility] [id number] [place] [address] January, [facility] [address], [place] [address] January, [facility] [address], [place] [address] January, [facility] [address], [place] [address] January, Mood disorder 296.90 and Anxiety 300.00 [facility] [id number] [place] [address] January, [facility] [id number] [place] [address] Dec, Headache 784.0 ; Other chronic pain 338.29 and Cervicalgia 723.1 [facility] [id number] [place] [address] Dec, [facility] [id number] [place] [address] Dec, [facility] [id number] [place] [address] Nov, [facility] [id number] [place] [address] Nov, [facility] [address], [place] [address] Oct, [facility] [address] [place] [address] Oct, [facility] [address], [place] [address] Oct, [facility] [address] [place] [address] Oct, [facility] [address], [place] [address] Oct, [facility] [address] [place] [address] Oct, [facility] [address], [place] [address] Oct, [facility] [id number] [place] [address] 19 Oct, 2014 [facility] [address] [id number] [place] [address] 18 Oct, 2014 [facility] [place] [facility] [address] [id number] [place] [address] 18 Oct, 2014 [facility] [place] [facility] [address] [id number] [place] [address] 17 Oct, 2014 [facility] [place] [facility] [address] [id number] [place] [address] 17 Oct, 2014 [facility] [address] [id number] [place] [address] 20 Sep, 2014 [facility] [place] [facility] [address] [id number] [place] [address] Sep, [facility] [place] [facility] [address] [id number] [place] [address] Sep, [facility] [address] [id number] [place] [address] Sep, [facility] [place] [facility] [address] [id number] [place] [address] Sep, [facility] [address] [facility] [id number] [place] [address] Sep, [facility] [place] [facility] [address] [id number] [place] [address] Sep, [facility] [place] [facility] [address] [id number] [place] [address] Sep, [facility] [place] [facility] [address] [id number] [place] [address] Sep, [facility] [place] [facility] [address] [id number] [place] [address] Sep, [facility] [place] [facility] [address] [id number] [place] [address] Sep, [facility] [place] [facility] [address] [id number] [place] [address] Sep, [facility] [place] [facility] [address] [id number] [place] [address] Sep, [facility] [place] [facility] [address] [id number] [place] [address] Sep, [facility] [place] [facility] [address] [id number] [place] [address] Aug, [facility] [place] [facility] [address] [id number] [place] [address] Aug, [facility] [place] [facility] [address] [id number] [place] [address] Aug, [facility] [place] [facility] [address] [id number] [place] [address] Aug, [facility] [place] [facility] [address] [id number] [place] [address] Aug, [facility] [place] [facility] [address] [id number] [place] [address] Aug, [facility] [place] [facility] [address] [id number] [place] [address] Aug, [facility] [place] [facility] [address] [id number] [place] [address] Aug, [facility] [place] [facility] [address] [id number] [place] [address] Aug, [facility] [place] [facility] [address] [id number] [place] [address] Aug, [facility] [place] [facility] [address] [id number] [place] [address] Aug, [facility] [place] [facility] [address] [id number] [place] [address] Aug, [facility] [place] [facility] [address] [id number] [address] Aug, [facility] [place] [facility] [address] [id number] [place] [address] Jul, [facility] [place] [facility] [address] [id number] [place] [address] Jul, [facility] [place] [facility] [address] [facility] [id number] [place] [address] Feb, [facility] [place] [facility] [address] [id number] [place] [address] Feb, [facility] [place] [facility] [address] [id number] [place] [address] January, [facility] [place] [facility] [address] [id number] [place] [address] January, [facility] [place] [facility] [id number] [place] [address] January, [facility] [place] [facility] [address] [facility] [id number] [place] [address] January, [facility] [place] [facility] [address] [id number] [place] [address] Nov, [facility] [place] [facility] [address] [facility] [id number] [place] [address] Nov, [facility] [place] [facility] [address] [id number] [place] [address] Nov, [facility] [place] [facility] [address] [facility] [id number] [place] [address] Nov, [facility] [place] [facility] [address] [id number] [place] [address] Oct, [facility] [place] [facility] [address] [id number] [place] [address] Oct, [facility] [place] [facility] [address] [facility] [id number] [place] [address] Sep, [facility] [place] [facility] [address] [id number] [place] [address] Sep, [facility] [place] [facility] [address] [id number] [place] [address] Sep, [facility] [place] [facility] [address] [id number] [place] [address] Sep, [facility] [place] [facility] [address] [id number] [place] [address] Aug, [facility] [place] [facility] [address] [id number] [place] [address] Aug, [facility] [place] [facility] [address] [id number] [place] [address] Aug, [facility] [place] [facility] [address] [id number] [place] [address] Aug, [facility] [place] [facility] [address] [id number] [place] [address] Aug, [facility] [place] [facility] [address] [id number] [place] [address] Aug, [facility] [place] [facility] [address] [id number] [place] [address] Aug, [facility] [place] [facility] [address] [id number] [place] [address] Jul, [facility] [place] [facility] [address] [id number] [place] [address] Jul, [facility] [place] [facility] [address] [id number] [place] [address] Jul, [facility] [place] [facility] [address] [id number] [place] [address] Jul, [facility] [place] [facility] [address] [id number] [place] [address] Jul, [facility] [place] [facility] [address] [id number] [place] [address] Jul, [facility] [place] [facility] [address] [id number] [place] [address] 08 Jul, 2013 [facility] [place] [facility] [address] [id number] [place] [address] Jun, [facility] [place] [facility] [address] [id number] [place] [address] Jun, [facility] [place] [facility] [address] [id number] [place] [address] 30 Jun, 2013 [facility] [place] [facility] [address] [id number] [place] [address] Jun, [facility] [place] [facility] [address] [id number] [place] [address] Jul, [facility] [place] [facility] [address] [id number] [place] [address] 16 Jul, 2010 [facility] [place] [facility] [address] [id number], [place] [address] Jul, [facility] [place] [facility] [address] [id number], [place] [address] Jul, [facility] [place] [facility] [address] [id number] [place] [address] Jun, [facility] [place] [facility] [address] [id number], [place] [address] 31 Jun, 2009 [facility] [place] [facility] [address] [id number], [place] [address] 29 Jun, 2009 [facility] [place] [facility] [address] [id number] [place] [address] 28 Jun, 2009 [facility] [place] [facility] [address] [id number], [place] [address] 15 Jun, 2009 [facility] [place] [facility] [address] [id number], [place] [address] 16 Mar, 2009 [facility] [facility] [address] [facility] [id number] [place] [address] January, IMMUNIZATIONS No Known Immunizations SOCIAL HISTORY Never Assessed REASON FOR VISIT Controlled Med Refill PLAN OF CARE VITAL SIGNS MEDICATIONS Medication Instructions Dosage Frequency Start Date End Date Duration Status Percocet 5-325 MG Orally 2 times a day 1 tablet as needed 12h Mar, 28 days Active RESULTS No Results PROCEDURES [...]
--- OUTSIDE RECORDS SUMMARY | 2019-04-09 01:47 | XMS REPORT ---
Author Author ROSINA GONZALES [facility] Address [address] [place] [address] Care Team Providers Care Sales Representative Groceries Name Role Phone ROSINA GONZALES Unavailable PROBLEMS Type Condition ICD9-CM Code [id number] Code Onset Dates Condition Status SNOMED Code Problem Hypertension I10 Active 90849139 Problem Cervicalgia M54.2 Active 519188444 Problem COPD (chronic obstructive pulmonary disease) with emphysema J43.9 Active 37116465 Problem Menopause Z78.0 Active 510727031 Problem Postmenopausal HRT (hormone replacement therapy) Z79.890 Active 28366767 Problem COPD with acute exacerbation J44.1 Active 789456781 Problem Anxiety F41.9 Active 73880129 Problem Chest pain R07.9 Active 01122307 Problem Nausea R11.0 Active 523737863 Problem Chronic headaches R51 Active 379385450 Problem Environmental allergies Z91.09 Active 954123282 Problem Insomnia G47.00 Active 505255894 Problem Hepatitis C B19.20 Active 11373567 Problem Depression F32.9 Active 13393834 Problem Chronic pain G89.29 Active 52234485 Problem GERD (gastroesophageal reflux disease) K21.9 Active 858212766 ALLERGIES No Information ENCOUNTERS Encounter Location Date Diagnosis [facility] [address] [id number] [id number] January, [facility] [id number] [place] [id number] January, Chronic pain G89.29 and Candidiasis B37.9 [facility] [id number] [place] [address] January, [facility] [id number] [place] [address] Dec, Acute frontal sinusitis, recurrence not specified J01.10 and Cough R05 [facility] [address] [id number] [id number] Dec, [facility] [id number] [place] [id number] Nov, [facility] [id number] [place] [address] Nov, Bronchitis J40 [address] [id number] [id number] Nov, [facility] [address] [place], [place] [id number] [place] [address] Oct, COPD with acute exacerbation J44.1 [id number] [place] [id number] Oct, Chronic pain G89.29 [address] [place] [id number] Oct, [id number] [place] [id number] Sep, Chronic pain G89.29 ; Depression F32.9 ; Anxiety F41.9 ; 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 [address] [address] Jul, Menopause Z78.0 ; Ankle swelling, unspecified laterality M25.473 ; Chronic pain G89.29 and Tobacco abuse Z72.0 [facility] [address] [place], [place] [address] [address] Jun, [facility] [address] [address] Jun, Chronic pain G89.29 [facility] [id number] [place] [address] 25 May, 2017 Dysuria R30.0 ; Dehydration E86.0 and Hypertension I10 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 [address] [address] 18 May, 2017 Chronic pain G89.29 [address] [address] Apr, Chronic pain G89.29 [facility] [address] [address] Apr, Routine gynecological examination Z01.419 [address] [address] Mar, Chronic pain G89.29 [facility] [address] [address] Feb, [facility] [id number] [place] [address] Feb, Chronic pain G89.29 [facility] [id number] [place] [address] Feb, [facility] [id number] [place] [address] January, Chronic pain G89.29 [facility] [address] [address] January, Routine gynecological examination Z01.419 and Breast cancer screening Z12.39 [facility] [id number] [place] [address] January, Chronic pain G89.29 [facility] [id number] [place] [address] Dec, Postmenopausal HRT (hormone replacement therapy) Z79.890 [address] [place] [address] [address] Dec, [address] [id number] [place] [address] Nov, Chronic pain G89.29 [place] [id number] [place] [address] 30 Nov, 2016 Chronic headaches R51 ; [...] finger, with routine healing, subsequent encounter S62.639D [place] [id number] [place] [address] 15 Nov, 2016 [address] [id number] [place] [address] Nov, [place] [id number] [place] [address] Nov, [place] [id number] [place] [address] Nov, Hypertension I10 [address] [id number] [place] [address] Nov, [place] [id number] [place] [address] Nov, [place] [id number] [place] [address] Oct, Anxiety F41.9 [address] [address] [address] Oct, [facility] [address] [address] Oct, Acute upper respiratory infection, unspecified J06.9 and Other viral agents as the cause of diseases classified elsewhere B97.89 [facility] [address] [address] Oct, [facility] [id number] [place] [address] Oct, Right acute serous otitis media, recurrence not specified H65.01 and Pharyngitis, unspecified etiology J02.9 [facility] [id number] [place] [address] Sep, [facility] [id number] [place] [address] Aug, Environmental allergies Z91.09 [facility] [id number] [place] [address] Aug, [facility] [address] [place] [address] Jul, Atypical nevi D22.9 [facility] [address] [address] Jul, [facility] [address] [address] Jul, [facility] [address] [address] Jul, [facility] [address] [address] Jun, [facility] [id number] [place] [address] 23 May, 2016 [facility] [address] [address] May, [facility] [id number] [place] [address] May, 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 ; Anxiety F41.9 ; COPD with acute exacerbation J44.1 ; Environmental allergies Z91.09 ; Depression F32.9 and Chronic pain G89.29 [address] [address] [address] Feb, Chronic headaches R51 and Chronic pain G89.29 [address] [id number] [place] [address] January, Chronic pain G89.29 and Anxiety F41.9 [address] [id number] [place] [address] January, Depression F32.9 and Hypertension I10 [address] [id number] [place] [address] January, Chronic pain G89.29 [address] [id number] [place] [address] Dec, [place] [id number] [place] [address] Dec, [address] [id number] [place] [address] Dec, Chronic headaches R51 ; Chronic pain G89.29 ; Environmental allergies Z91.09 ; GERD (gastroesophageal reflux disease) K21.9 ; Insomnia G47.00 ; Hypertension I10 and COPD with acute exacerbation J44.1 [address] [id number] [place] [address] Dec, [address] [place] [address] Dec, Chest pain R07.9 ; GERD (gastroesophageal reflux disease) K21.9 and Nausea R11.0 [address] [address] [address] Nov, [address] [address] [address] 24 Oct, 2015 COPD with acute exacerbation J44.1 ; Chronic headaches R51 ; GERD (gastroesophageal reflux disease) K21.9 ; Insomnia G47.00 ; Hypertension I10 ; Depression F32.9 and Anxiety F41.9 [address] [address] [address] Oct, [address] [address] Oct, [address] [place] [address] [address] Oct, [address] [place] [address] [address] Oct, [address] [address] 15 Oct, 2015 Flu-like symptoms R68.89 and COPD with acute exacerbation J44.1 [address] [place] [address] [address] Oct, [address] [address] Oct, Left shoulder pain M25.512 ; Chronic headaches R51 ; Environmental allergies Z91.09 ; GERD (gastroesophageal reflux disease) K21.9 ; Insomnia G47.00 ; Hypertension I10 ; Depression F32.9 and 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 [address] [place] [address] Sep, [address] [id number] [place] [address] Sep, COPD (chronic obstructive pulmonary disease) J44.[address] [address] Sep, Bronchitis J40 [address] [address] Aug, Cervicalgia 723.1 ; Chronic hepatitis C without mention of hepatic coma 070.54 ; Essential hypertension 401.9 ; Chronic headaches R51 ; Environmental allergies Z91.09 ; GERD (gastroesophageal reflux disease) K21.9 ; Insomnia G47.00 ; Depression F32.9 and COPD (chronic obstructive pulmonary disease) J44.[address] [address] Jul, Essential hypertension 401.9 ; Hypertension I10 ; Depression F32.9 ; Anxiety F41.9 ; Chronic headaches R51 and Cervicalgia M54.[address] [address] Jul, Essential hypertension 401.9 and Anxiety F41.[address] [address] Jul, [address] [id number] [place] [address] Jul, [address] [address] Jul, Insomnia G47.00 ; GERD (gastroesophageal reflux disease) K21.9 ; Essential hypertension 401.9 ; Bipolar I disorder, most recent episode (or current) depressed, moderate 296.52 ; Hepatitis C B19.20 ; Depression F32.9 ; Hypertension I10 ; 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 ; Chronic headaches R51 and Chronic pain G89.[address] [address] Jun, [address] [id number] [place] [address] Jun, Chronic headaches R51 ; Environmental allergies Z91.09 ; GERD (gastroesophageal reflux disease) K21.9 ; Insomnia G47.00 ; Hepatitis C B19.20 ; Hypertension I10 ; Depression F32.9 ; 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 and Chronic pain G89.[address] [address] Jun, [address] [address] Jun, Vision changes H53.[address] [address] Apr, [address] [address] Apr, Bipolar I disorder, most recent episode (or current) depressed, moderate 296.52 ; Other chronic pain 338.29 ; Chronic hepatitis C without mention of hepatic coma 070.54 ; Essential hypertension 401.9 ; Environmental allergies V15.09 and GERD (gastroesophageal reflux disease) 530.81 [place] [id number] [place] [address] Mar, [address] [address] Mar, [address] [address] Mar, [address] [address] Mar, [address] [address] Mar, [address] [address] Feb, Routine gynecological examination V72.31 ; Breast cancer screening V76.10 and Tobacco abuse 305.1 [facility] [address] [address] Feb, [facility] [id number] [place] [address] January, [facility] [id number] [place] [address] January, [facility] [address] [place] [address] January, [facility] [id number] [place] [address] January, [facility] [id number] [place] [address] January, Mood disorder 296.90 and Anxiety 300.00 [facility] [id number] [place] [address] January, [facility] [address] [place] [address] Dec, Headache 784.0 ; Other chronic pain 338.29 and Cervicalgia 723.1 [facility] [address] [address] Dec, [facility] [address] [address] Dec, [facility] [address] [address] Nov, [facility] [address] [address] Nov, [facility] [id number] [place] [address] Oct, [facility] [address] [address] Oct, [facility] [id number] [place] [address] Oct, 2014 [facility] [place] [facility] [address] [id number] [place] [address] Oct, 2014 [facility] [place] [facility] [address] [id number] [place] [address] 20 Oct, 2014 [facility] [place] [facility] [address] [id number] [place] [address] 20 Oct, 2014 [facility] [place] [facility] [address] [id number] [place] [address] 19 Oct, 2014 [facility] [place] [facility] [address] [id number] [place] [address] 19 Oct, 2014 [facility] [place] [facility] [address] [facility] [id number] [place] [address] 18 Oct, 2014 [facility] [place] [facility] [address] [id number] [place] [address] 18 Oct, 2014 [facility] [place] [facility] [address] [id number] [place] [address] 17 Oct, 2014 [facility] [place] [facility] [address] [facility] [id number] [place] [address] 17 Oct, 2014 [facility] [place] [facility] [address] [facility] [id number] [place] [address] Sep, [facility] [place] [facility] [address] [id number] [place] [address] Sep, [facility] [place] [facility] [address] [id number] [place] [address] Sep, [facility] [place] [facility] [address] [id number] [place] [address] 15 Sep, 2014 [facility] [place] [facility] [address] [facility] [id number] [place] [address] 15 Sep, 2014 [facility] [place] [facility] [address] [id number] [address] Sep, [facility] [place] [facility] [address] [id number] [place] [address] Sep, [facility] [place] [facility] [address] [id number] [place] [address] Sep, [facility] [place] [facility] [address] [id number] [place] [address] Sep, [facility] [place] [facility] [address] [id number] [place] [address] Sep, [facility] [place] [facility] [address] [id number] [place] [address] Sep, [facility] [place] [facility] [address] [id number] [place] [address] Sep, [facility] [place] [facility] [address] [id number] [place] [address] Sep, [facility] [place] [facility] [address] [id number] [place] [address] Sep, [facility] [place] [facility] [address] [id number] [place] [address] Aug, [facility] [place] [facility] [address] [id number] [place] [address] Aug, [facility] [place] [facility] [address] [id number] [place] [address] Aug, [facility] [place] [facility] [address] [id number] [place] [address] Aug, [facility] [place] [facility] [address] [id number] [place] [address] Aug, [facility] [place] [facility] [address] [id number] [place] [address] Aug, [facility] [place] [facility] [address] [id number] [place] [address] Aug, [facility] [place] [facility] [address] [id number] [place] [address] Aug, [facility] [place] [facility] [address] [id number] [place] [address] Aug, [facility] [place] [facility] [address] [id number] [place] [address] Aug, [facility] [place] [facility] [address] [id number] [place] [address] Aug, [facility] [place] [facility] [address] [id number] [place] [address] Aug, [facility] [place] [facility] [address] [id number] [place] [address] Aug, [facility] [place] [facility] [address] [id number] [place] [address] Jul, [facility] [place] [facility] [address] [id number] [place] [address] Jul, [facility] [place] [facility] [address] [id number] [place] [address] Feb, [facility] [place] [facility] [address] [id number] [place] [address] Feb, [facility] [place] [facility] [address] [id number] [place] [address] January, [facility] [place] [facility] [address] [id number] [place] [address] January, [facility] [place] [facility] [address] [id number] [place] [address] January, [facility] [place] [facility] [address] [id number] [place] [address] January, [facility] [place] [facility] [address] [id number] [place] [address] Nov, [facility] [place] [facility] [address] [id number] [place] [address] Nov, [facility] [place] [facility] [address] [id number] [place] [address] Nov, [facility] [place] [facility] [address] [id number] [place] [address] Nov, [facility] [place] [facility] [address] [id number] [place] [address] Oct, [facility] [place] [facility] [address] [id number] [place] [address] Oct, [facility] [place] [facility] [address] [id number] [place] [address] Sep, [facility] [place] [facility] [address] [id number] [place] [address] Sep, [facility] [place] [facility] [address] [id number] [place] [address] Sep, [facility] [place] [facility] [address] [id number] [place] [address] Sep, [facility] [place] [facility] [address] [id number] [place] [address] Aug, [facility] [place] [facility] [address] [id number] [place] [address] Aug, [facility] [place] [facility] [address] [id number] [place] [address] Aug, [facility] [place] [facility] [address] [id number] [place] [address] Aug, [facility] [place] [facility] [address] [id number] [place] [address] Aug, [facility] [place] [facility] [address] [id number] [place] [address] Aug, [facility] [place] [facility] [address] [id number] [place] [address] Aug, [facility] [place] [facility] [address] [id number] [place] [address] Jul, [facility] [place] [facility] [address] [id number] [place] [address] 29 Jul, 2013 [facility] [place] [facility] [address] [id number] [place] [address] Jul, [facility] [place] [facility] [address] [facility] [id number] [place] [address] Jul, [facility] [place] [facility] [address] [id number] [place] [address] Jul, [facility] [place] [facility] [address] [id number] [place] [address] Jul, [facility] [place] [facility] [address] [id number] [place] [address] Jul, [facility] [place] [facility] [address] [facility] [id number] [place] [address] Jun, [facility] [place] [facility] [address] [id number] [place] [address] Jun, [facility] [place] [facility] [address] [facility] [id number] [place] [address] 30 Jun, 2013 [facility] [place] [facility] [address] [facility] [id number] [place] [address] Jun, [facility] [place] [facility] [address] [id number] [place] [address] 24 Jul, 2010 [facility] [place] [facility] [address] [id number] [place] [address] 16 Jul, 2010 [facility] [place] [facility] [address] [id number] [place] [address] 10 Jul, 2010 [facility] [place] [facility] [address] [facility] [id number] [place] [address] Jul, [facility] [place] [facility] [address] [facility] [id number] [place] [address] 26 Jun, 2010 [facility] [place] [facility] [address] [facility] [id number] [place] [address] Jun, [facility] [address] [id number] [place] [address] Jun, [facility] [address] [id number] [place] [address] Jun, [facility] [address] [id number] [place] [address] Jun, [facility] [address] [id number] [place] [address] Mar, [facility] [address] [id number] [place] [address] January, IMMUNIZATIONS No Known Immunizations SOCIAL HISTORY Never Assessed REASON FOR VISIT Oxycodone- 07/06 PLAN OF CARE VITAL SIGNS MEDICATIONS Medication Instructions Dosage Frequency Start Date End Date Duration Status Percocet 5-325 MG Orally 2 times a day 1 tablet as needed 12h 16 Jun, 2017 28 days Active RESULTS No Results [...] child Hospitalization History low blood [facility] 12/2017
--- OUTSIDE RECORDS SUMMARY | 2019-04-09 01:47 | XMS REPORT ---
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 Active 72075999 Problem Menopause Z78.0 Active 806857997 Problem Postmenopausal HRT (hormone replacement therapy) Z79.890 Active 35296166 Problem COPD with acute exacerbation J44.1 Active 420540020 Problem Anxiety F41.9 Active 74766863 Problem Chest pain R07.9 Active 08951947 Problem Nausea R11.0 Active 063534592 Problem Chronic headaches R51 Active 873847229 Problem Environmental allergies Z91.09 Active 352051191 Problem Insomnia G47.00 Active 855847389 Problem Hepatitis C B19.20 Active 99849268 Problem Depression F32.9 Active 48251890 Problem Chronic pain G89.29 Active 29042686 Problem GERD (gastroesophageal reflux disease) K21.9 Active 502028610 ALLERGIES Substance Reaction Event Type Date Status Zoloft hypotension Drug Allergy May, Active Wellbutrin jittery Drug Allergy May, Active Tramadol HCl anaphylaxis Drug Allergy May, Active Tetracycline HCl rash Drug Allergy May, Active Sulfamethoxazole-Trimethoprim Unknown Drug Allergy May, Active Penicillin V Potassium rash Drug Allergy May, Active Morphine Sulfate anaphylaxis Drug Allergy May, Active Doxycycline Hyclate rash Drug Allergy May, Active Wasp/hornet/bee stings anaphylaxis Non Drug Allergy May, Active ENCOUNTERS Encounter Location Date Diagnosis [facility] [address] [facility] [id number] [address] Dec, Acute frontal sinusitis, recurrence not specified J01.10 and Cough R05 [facility] [id number] [place] [id number] Dec, [place] [id number] [place] [address] [id number] Nov, [facility] [address] [place] [id number] [place] [address] Nov, Bronchitis J40 [address] [id number] [id number] Nov, [facility] [address] [place] [id number] [place] [address] Oct, COPD with acute exacerbation J44.1 [place] [id number] [place] [id number] Oct, Chronic pain G89.29 [place] [id number] [place] [id number] Oct, [place] [id number] [place] [address] [id number] Sep, Chronic pain G89.29 ; Depression F32.9 ; Anxiety F41.9 ; 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 and Flu-like symptoms R68.89 [facility] [address] [id number] [place] [address] Aug, Chronic pain G89.29 ; Open bite of other finger without damage to nail, initial encounter S61.258A and Bitten by dog, initial encounter W54.0XXA [facility] [address] [place] [address] Jul, Menopause Z78.0 ; Ankle swelling, unspecified laterality M25.473 ; Chronic pain G89.29 and Tobacco abuse Z72.0 [facility] [address] [address] Jun, [facility] [address] [place] [id number] [place] [address] Jun, Chronic pain G89.29 [facility] [address] [place] [id number] [place] [address] 25 May, 2017 Dysuria R30.0 ; Dehydration E86.0 and Hypertension I10 [facility] [address] [place] [id number] [place] [address] 19 May, 2017 Menopause Z78.0 ; Depression F32.9 ; Chronic pain G89.29 ; Environmental allergies Z91.09 ; 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 and Encounter for immunization Z23 [facility] [address] [place] [id number] [place] [address] 18 May, 2017 Chronic pain G89.29 [facility] [address] [place] [id number] [place] [address] Apr, Chronic pain G89.29 [facility] [address] [address] Apr, Routine gynecological examination Z01.419 [facility] [address] [place] [id number] [place] [address] Mar, Chronic pain G89.29 [facility] [address] [place] [id number] [place] [address] Feb, [facility] [address] [place] [id number] [place] [address] Feb, Chronic pain G89.29 [facility] [address] [place] [id number] [place] [address] Feb, [facility] [address] [place] [id number] [place] [address] January, Chronic pain G89.29 [facility] [address] [place] [id number] [place] [address] January, Routine gynecological examination Z01.419 and Breast cancer screening Z12.39 [facility] [address] [address] January, Chronic pain G89.29 [facility] [address] [place] [id number] [place] [address] Dec, Postmenopausal HRT (hormone replacement therapy) Z79.890 [facility] [address] [place] [id number] [place] [address] Dec, [facility] [address] [address] Nov, Chronic pain G89.29 [facility] [address] [address] Nov, Chronic headaches R51 ; GERD (gastroesophageal [...] routine healing, subsequent encounter S62.639D [place] [address] [place] [id number] [place] [address] Nov, [place] [address] [address] Nov, [place] [address] [place] [id number] [place] [address] Nov, [place] [address] [place] [id number] [place] [address] Nov, Hypertension I10 [facility] [address] [place] [id number] [place] [address] Nov, [place] [address] [address] Nov, [facility] [address] [place] [id number] [place] [address] Oct, Anxiety F41.9 [place] [address] [address] Oct, [facility] [address] [place] [id number] [place] [address] Oct, Acute upper respiratory infection, unspecified J06.9 and Other viral agents as the cause of diseases classified elsewhere B97.89 [facility] [address] [place] [id number] [place] [address] Oct, [facility] [address] [place] [id number] [place] [address] Oct, Right acute serous otitis media, recurrence not specified H65.01 and Pharyngitis, unspecified etiology J02.9 [facility] [address] [place] [id number] [place] [address] Sep, [facility] [address] [place] [id number] [place] [address] Aug, Environmental allergies Z91.09 [facility] [address] [place] [id number] [place] [address] Aug, [facility] [address] [place] [id number] [place] [address] Jul, Atypical nevi D22.9 [facility] [address] [place] [id number] [place] [address] Jul, [facility] [id number] [place] [address] Jul, [facility] [id number] [place] [address] Jul, [facility] [address] [place] [id number] [place] [address] Jun, [facility] [address] [place] [id number] [place] [address] May, [facility] [address] [place] [id number] [place] [address] 13 May, 2016 [facility] [address] [place] [id number] [place] [address] May, [facility] [address] [place] [id number] [place] [address] Apr, [place] [address] [place] [id number] [place] [address] Apr, Chronic headaches R51 ; GERD (gastroesophageal reflux disease) K21.9 ; Hypertension I10 ; 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 ; Anxiety F41.9 ; COPD with acute exacerbation J44.1 ; Environmental allergies Z91.09 ; Depression F32.9 and Chronic pain G89.29 [place] [address] [place] [id number] [place] [address] Feb, Chronic headaches R51 and Chronic pain G89.29 [place] [address] [place] [id number] [place] [address] January, Chronic pain G89.29 and Anxiety F41.9 [place] [address] [place] [id number] [place] [address] January, Depression F32.9 and Hypertension I10 [place] [address] [place] [id number] [place] [address] January, Chronic pain G89.29 [place] [address] [place] [id number] [place] [address] Dec, [place] [address] [place] [id number] [place] [address] Dec, [place] [address] [place] [id number] [place] [address] Dec, Chronic pain G89.29 ; Chronic headaches R51 ; Environmental allergies Z91.09 ; GERD (gastroesophageal reflux disease) K21.9 ; Insomnia G47.00 ; Hypertension I10 and COPD with acute exacerbation J44.1 [place] [address] [address] 14 Dec, 2015 [place] [address] [address] 06 Dec, 2015 Chest pain R07.9 ; GERD (gastroesophageal reflux disease) K21.9 and Nausea R11.0 [place] [address] [address] Nov, [place] [address] [address] 24 Oct, 2015 Hypertension I10 ; Anxiety F41.9 ; GERD (gastroesophageal reflux disease) K21.9 ; Depression F32.9 ; Insomnia G47.00 ; Chronic headaches R51 and COPD with acute exacerbation J44.1 [place] [address] [address] 23 Oct, 2015 [place] [address] [address] 18 Oct, 2015 [place] [address] [address] 18 Oct, 2015 [place] [address] [address] 17 Oct, 2015 [place] [address] [place] [id number] [place] [address] 15 Oct, 2015 Flu-like symptoms R68.89 and COPD with acute exacerbation J44.1 [place] [address] [place] [id number] [place] [address] 12 Oct, 2015 [place] [address] [address] 11 Oct, 2015 Left shoulder pain M25.512 ; Chronic headaches R51 ; Environmental allergies Z91.09 ; GERD (gastroesophageal reflux disease) K21.9 ; Insomnia G47.00 ; Hypertension I10 ; Depression F32.9 and 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 [place] [address] [address] Sep, [address] [address] Sep, COPD (chronic obstructive pulmonary disease) J44.[address] [address] Sep, Bronchitis J40 [address] [address] Aug, Cervicalgia 723.1 ; Chronic hepatitis C without mention of hepatic coma 070.54 ; Essential hypertension 401.9 ; Chronic headaches R51 ; Environmental allergies Z91.09 ; GERD (gastroesophageal reflux disease) K21.9 ; Insomnia G47.00 ; Depression F32.9 and COPD (chronic obstructive pulmonary disease) J44.[address] [address] Jul, Essential hypertension 401.9 ; Hypertension I10 ; Depression F32.9 ; Anxiety F41.9 ; Chronic headaches R51 and Cervicalgia M54.[address] [address] Jul, Essential hypertension 401.9 and Anxiety F41.[address] [address] Jul, [address] [address] Jul, [address] [address] Jul, Insomnia G47.00 ; GERD (gastroesophageal reflux disease) K21.9 ; Essential hypertension 401.9 ; Bipolar I disorder, most recent episode (or current) depressed, moderate 296.52 ; Hepatitis C B19.20 ; Depression F32.9 ; Hypertension I10 ; 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 ; Chronic headaches R51 and Chronic pain G89.[id number] [place] [address] Jun, [place] [address] [address] Jun, Chronic headaches R51 ; Environmental allergies Z91.09 ; GERD (gastroesophageal reflux disease) K21.9 ; Insomnia G47.00 ; Hepatitis C B19.20 ; Hypertension I10 ; Depression F32.9 ; 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 and Chronic pain G89.[address] [address] Jun, [address] [address] Jun, Vision changes H53.[address] [address] Apr, [address] [address] Apr, Bipolar I disorder, most recent episode (or current) depressed, moderate 296.52 ; Other chronic pain 338.29 ; Chronic hepatitis C without mention of hepatic coma 070.54 ; Essential hypertension 401.9 ; Environmental allergies V15.09 and GERD (gastroesophageal reflux disease) 530.81 [place] [id number] [place] [address] Mar, [place] [address] [place] [id number] [place] [address] Mar, [place] [address] [address] Mar, [address] [address] Mar, [place] [address] [place] [id number] [place] [address] Mar, [address] [address] Feb, Routine gynecological examination V72.31 ; Breast cancer screening V76.10 and Tobacco abuse 305.1 [facility] [address] [place] [id number] [place] [address] Feb, [facility] [address] [place] [id number] [place] [address] January, [facility] [address] [place] [id number] [place] [address] January, [facility] [address] [place] [id number] [place] [address] January, [facility] [address] [place] [id number] [place] [address] January, [facility] [address] [place] [id number] [place] [address] January, Mood disorder 296.90 and Anxiety 300.00 [facility] [address] [place] [id number] [place] [address] January, [facility] [address] [place] [id number] [place] [address] Dec, Headache 784.0 ; Other chronic pain 338.29 and Cervicalgia 723.1 [facility] [address] [place] [id number] [address] Dec, [facility] [address] [place] [id number] [place] [address] Dec, [facility] [address] [place] [id number] [place] [address] Nov, [facility] [address] [place] [id number] [place] [address] Nov, [facility] [address] [address] Oct, [facility] [address] [place] [id number] [place] [address] Oct, 2014 [facility] [place] [facility] [address] [id number] [place] [address] Oct, 2014 [facility] [place] [facility] [address] [facility] [id number] [place] [address] Oct, 2014 [facility] [place] [facility] [address] [facility] [id number] [place] [address] Oct, 2014 [facility] [place] [facility] [address] [facility] [id number] [place] [address] Oct, 2014 [facility] [place] [facility] [address] [facility] [id number] [place] [address] Oct, 2014 [facility] [place] [facility] [address] [facility] [id number] [place] [address] Oct, 2014 [facility] [place] [facility] [address] [facility] [id number] [place] [address] Oct, 2014 [facility] [place] [facility] [address] [facility] [id number] [place] [address] Oct, [facility] [place] [facility] [address] [facility] [id number] [place] [address] Oct, 2014 [facility] [place] [facility] [address] [facility] [id number] [place] [address] Oct, [facility] [place] [facility] [address] [facility] [id number] [place] [address] Sep, [facility] [place] [facility] [address] [facility] [id number] [address] Sep, [facility] [place] [facility] [address] [facility] [id number] [address] Sep, [facility] [place] [facility] [address] [facility] [id number] [place] [address] 15 Sep, 2014 [facility] [place] [facility] [address] [facility] [id number] [address] 15 Sep, 2014 [facility] [place] [facility] [address] [id number] [place] [address] Sep, [facility] [place] [facility] [address] [id number] [place] [address] Sep, [facility] [place] [facility] [address] [id number] [place] [address] Sep, [facility] [place] [facility] [address] [id number] [place] [address] Sep, [facility] [address] [id number] [place] [address] Sep, [facility] [place] [facility] [address] [id number] [place] [address] Sep, [facility] [address] [id number] [place] [address] Sep, [facility] [address] [id number] [place] [address] Sep, [facility] [place] [facility] [address] [id number] [place] [address] Sep, [facility] [place] [facility] [address] [id number] [place] [address] Aug, [facility] [place] [facility] [address] [id number] [place] [address] Aug, [facility] [place] [facility] [address] [id number] [place] [address] Aug, [facility] [place] [facility] [address] [id number] [place] [address] Aug, [facility] [place] [facility] [address] [id number] [place] [address] Aug, [facility] [place] [facility] [address] [id number] [place] [address] Aug, [facility] [place] [facility] [address] [id number] [place] [address] Aug, [facility] [place] [facility] [address] [id number] [place] [address] Aug, [facility] [place] [facility] [address] [id number] [place] [address] Aug, [facility] [place] [facility] [address] [id number] [place] [address] Aug, [facility] [place] [facility] [address] [id number] [place] [address] Aug, [facility] [place] [facility] [address] [id number] [place] [address] Aug, [facility] [place] [facility] [address] [id number] [place] [address] Aug, [facility] [place] [facility] [address] [id number] [place] [address] Jul, [facility] [place] [facility] [address] [id number] [place] [address] Jul, [facility] [place] [facility] [address] [id number] [place] [address] Feb, [facility] [place] [facility] [address] [id number] [place] [address] Feb, [facility] [place] [facility] [address] [id number] [place] [address] January, [facility] [place] [facility] [address] [id number] [place] [address] January, [facility] [place] [facility] [address] [id number] [place] [address] January, [facility] [place] [facility] [address] [id number] [place] [address] January, [facility] [place] [facility] [address] [id number] [place] [address] Nov, [facility] [place] [facility] [address] [id number] [place] [address] 24 Nov, 2013 [facility] [address] [id number] [place] [address] Nov, [facility] [place] [facility] [address] [id number] [place] [address] Nov, [facility] [address] [id number] [place] [address] Oct, [facility] [place] [facility] [address] [id number] [place] [address] Oct, [facility] [place] [facility] [address] [id number] [place] [address] Sep, [facility] [place] [facility] [address] [id number] [place] [address] Sep, [facility] [place] [facility] [address] [id number] [place] [address] Sep, [facility] [address] [id number] [place] [address] Sep, [facility] [address] [id number] [place] [address] Aug, [facility] [address] [id number] [place] [address] Aug, [facility] [place] [facility] [address] [id number] [place] [address] Aug, [facility] [place] [facility] [address] [id number] [place] [address] Aug, [facility] [place] [facility] [address] [id number] [place] [address] Aug, [facility] [place] [facility] [address] [id number] [place] [address] Aug, [facility] [place] [facility] [address] [id number] [place] [address] Aug, [facility] [place] [facility] [address] [id number] [place] [address] Jul, [facility] [place] [facility] [address] [id number] [place] [address] Jul, [facility] [place] [facility] [address] [id number] [place] [address] Jul, [facility] [place] [facility] [address] [id number] [place] [address] Jul, [facility] [place] [facility] [address] [id number] [place] [address] Jul, [facility] [place] [facility] [address] [id number] [place] [address] Jul, [facility] [place] [facility] [address] [id number] [place] [address] Jul, [facility] [place] [facility] [address] [id number] [address] Jun, [facility] [place] [facility] [address] [id number] [place] [address] Jun, [facility] [place] [facility] [address] [id number] [address] Jun, [facility] [place] [facility] [address] [id number] [address] Jun, [facility] [place] [facility] [address] [id number] [address] Jul, [facility] [place] [facility] [address] [id number] [place] [address] 16 Jul, 2010 [facility] [place] [facility] [address] [id number] [address] Jul, [facility] [place] [facility] [address] [id number] [place] [address] Jul, [facility] [place] [facility] [address] [id number] [address] Jun, [facility] [id number] [address] Jun, [facility] [id number] [address] Jun, [facility] [id number] [address] Jun, [facility] [id number] [place] [address] Jun, [facility] [id number] [place] [address] Mar, [facility] [id number] [place] [address] January, IMMUNIZATIONS Vaccine Route Administration Date Status FLUARIX QUAD (3 AND UP) 2016 IM Intramuscular Jun 09, 2017 Administered SOCIAL HISTORY Never Assessed REASON FOR VISIT hormone replacement, pt. states meet was wanting her to come in to have her p remarin checked, pt. states having left shoulder pain into her neck and down her arm and states she has had a cortisone shot and was told that it may or may not work , EDITH Van PLAN OF CARE Activity Details Follow Up 3 Months Reason: VITAL SIGNS Height 65.2 in 2017-06-09 Weight 145.6 lbs 2017-06-09 Temperature 98.6 degrees Fahrenheit 2017-06-09 Heart Rate 74 bpm 2017-06-09 Respiratory Rate 18 2017-06-09 BMI 24.08 kg/m2 2017-06-09 Blood pressure systolic 119 mmHg 2017-06-09 Blood pressure diastolic 77 mmHg 2017-06-09 MEDICATIONS Medication Instructions Dosage Frequency Start Date End Date Duration Status Cyclobenzaprine HCl 10 mg Orally Three times a day 1 tablet 8h Active Albuterol Sulfate (2.5 MG/3ML) 0.083% Inhalation Three times a day 3 ml 8h Oct, Active Flonase 50 mcg/act Nasally Once a day 1 sprays by Nasal route 2 times per day in each nostril 24h Nov, 12 months Active HydrOXYzine HCl 25 MG Orally every 8 hrs 1 tablet as needed 8h 17 Jan, 2016 Active Famotidine 20mg Orally 2 times a day TAKE ONE TABLET BY MOUTH TWICE DAILY 12h 30 Active Venlafaxine HCl ER 75 MG Orally Once a day 1 capsule with food 24h May, 30 day(s) Active Premarin 0.9 MG Orally Once a day 1 tablet 24h May, 90 days Active Venlafaxine HCl ER 75MG TAKE ONE CAPSULE BY MOUTH ONCE DAILY WITH FOOD 30 Active Pantoprazole Sodium 40MG Orally Once a day 1 tablet 24h 90 Active ProAir HFA 108 (90 Base) MCG/ACT Inhalation every 4 hrs 2 puffs as needed 4h Mar, Active Lisinopril 10MG Orally Once a day 1 tablet 24h 90 days Active Cetirizine HCl 10 mg Orally Once a day 1 tablet as needed 24h May, 90 days Active Tizanidine HCl 4 MG Orally Three times a day 1 tablet as needed 8h May, May, 90 days Active Montelukast Sodium 10 mg Orally Once a day TAKE ONE TABLET BY MOUTH ONCE DAILY 24h 90 days Active EPINEPHrine 0.3 MG/0.3ML Injection PRN as directed Apr, Active Crestor 10 MG Orally Once a day 1 tablet 24h Active Trazodone HCl 100MG Orally Once a day 1 tablet at bedtime 24h 30 Active Trazodone HCl 100 mg Orally Once a day 1 tablet at bedtime 24h May, 30 day(s) Active Symbicort 160-4.5 mcg/act Inhalation Twice a day inhale 2 puffs by Inhalation route in the morning and evening 2 times per day 12h Jul, May, 90 days Active Percocet 5-325 MG Orally 2 times a day 1 tablet as needed 12h 18 May, 2017 28 days Active RESULTS No Results PROCEDURES Procedure Date Ordered Result Body Site FLUARIX QUAD (3 & UP)-[id number] 09, 2017 SINGLE IMMUNIZATION ADMIN Jun 09, 2017 INSTRUCTIONS MEDICATIONS ADMINISTERED No Known Medications MEDICAL [...]
--- OUTSIDE RECORDS SUMMARY | 2019-04-09 01:49 | XMS REPORT ---
Author Author ALEXIS SOUZA Organization [facility] [place] Address [address] [place] [address] Care Team Providers Care Platinumsmith Name Role Phone ALEXIS SOUZA Unavailable PROBLEMS Type Condition ICD9-CM Code OYB99-WW Code Onset Dates Condition Status SNOMED Code Problem Hypertension I10 Active 35431162 Problem Cervicalgia M54.2 Active 242374478 Problem COPD (chronic obstructive pulmonary disease) with emphysema J43.9 Active 66420978 Problem Menopause Z78.0 Active 952702798 Problem Postmenopausal HRT (hormone replacement therapy) Z79.890 Active 25814540 Problem COPD with acute exacerbation J44.1 Active 181727220 Problem Anxiety F41.9 Active 23956833 Problem Chest pain R07.9 Active 27496783 Problem Nausea R11.0 Active 599700267 Problem Chronic headaches R51 Active 855710078 Problem Environmental allergies Z91.09 Active 872169765 Problem Insomnia G47.00 Active 194769536 Problem Hepatitis C B19.20 Active 00605333 Problem Depression F32.9 Active 53620231 Problem Chronic pain G89.29 Active 23496217 Problem GERD (gastroesophageal reflux disease) K21.9 Active 382016529 ALLERGIES Substance Reaction Event Type Date Status [...] May, Active ENCOUNTERS Encounter Location Date Diagnosis [facility] [address] [facility] [id number] [address] Dec, Acute frontal sinusitis, recurrence not specified J01.10 and Cough R05 [facility] [id number] [place] [id number] Dec, [address] [id number] Nov, [facility] [place] [address] [address] Nov, Bronchitis J[address] [id number] [place] [id number] Nov, [facility] [address] [place] [id number] [place] [address] Oct, COPD with acute exacerbation J44.1 [place] [id number] [place] [id number] Oct, Chronic pain G89.29 [place] [id number] [place] [id number] Oct, [place] [id number] [place] [address] [id number] Sep, Chronic pain G89.29 ; Depression F32.9 ; Anxiety F41.9 ; 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 and Flu-like symptoms R68.89 [facility] [id number] [place] [address] Aug, Chronic pain G89.29 ; Open bite of other finger without damage to nail, initial encounter S61.258A and Bitten by dog, initial encounter W54.0XXA [facility] [place] [id number] [place] [address] Jul, Menopause Z78.0 ; Ankle swelling, unspecified laterality M25.473 ; Chronic pain G89.29 and Tobacco abuse Z72.0 [facility] [id number] [place] [address] Jun, [facility] [place] [address] [place] [id number] [place] [address] Jun, Chronic pain G89.29 [facility] [id number] [place] [address] 25 May, 2017 Dysuria R30.0 ; Dehydration E86.0 and Hypertension I10 [facility] [place] [id number] [place] [address] 19 May, 2017 Menopause Z78.0 ; Depression F32.9 ; Chronic pain G89.29 ; Environmental allergies Z91.09 ; 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 and Encounter for immunization Z23 [facility] [place] [id number] [place] [address] 18 May, 2017 Chronic pain G89.29 [facility] [place] [id number] [place] [address] Apr, Chronic pain G89.29 [facility] [place] [id number] [place] [address] Apr, Routine gynecological examination Z01.419 [facility] [place] [id number] [place] [address] Mar, Chronic pain G89.29 [facility] [place] [id number] [place] [address] Feb, [facility] [place] [id number] [place] [address] Feb, Chronic pain G89.29 [facility] [place] [id number] [place] [address] Feb, [facility] [place] [id number] [place] [address] January, Chronic pain G89.29 [facility] [place] [id number] [place] [address] January, Routine gynecological examination Z01.419 and Breast cancer screening Z12.39 [facility] [place] [id number] [place] [address] January, Chronic pain G89.29 [facility] [place] [id number] [place] [address] Dec, Postmenopausal HRT (hormone replacement therapy) Z79.890 [facility] [place] [id number] [place] [address] Dec, [facility] [place] [id number] [place] [address] Nov, Chronic pain G89.29 [facility] [place] [id number] [place] [address] 30 Nov, 2016 Chronic headaches R51 ; [...] finger, with routine healing, subsequent encounter S62.639D [facility] [place] [id number] [place] [address] Nov, [facility] [place] [id number] [place] [address] Nov, [facility] [place] [id number] [place] [address] Nov, [facility] [place] [id number] [place] [address] 08 Nov, 2016 Hypertension I10 [facility] [place] [id number] [place] [address] Nov, [facility] [place] [address] [address] Nov, [facility] [place] [id number] [place] [address] Oct, Anxiety F41.9 [facility] [place] [address] [place] [address] Oct, [facility] [place] [id number] [place] [address] Oct, Acute upper respiratory infection, unspecified J06.9 and Other viral agents as the cause of diseases classified elsewhere B97.89 [facility] [place] [id number] [place] [address] Oct, [facility] [place] [id number] [place] [address] Oct, Right acute serous otitis media, recurrence not specified H65.01 and Pharyngitis, unspecified etiology J02.9 [facility] [place] [id number] [place] [address] Sep, [facility] [place] [id number] [place] [address] Aug, Environmental allergies Z91.09 [facility] [place] [id number] [place] [address] Aug, [facility] [place] [id number] [place] [address] Jul, Atypical nevi D22.9 [facility] [place] [id number] [place] [address] Jul, [facility] [place] [id number] [place] [address] Jul, [facility] [place] [id number] [place] [address] Jul, [facility] [place] [id number] [place] [address] Jun, [facility] [place] [id number] [place] [address] 23 May, 2016 [facility] [place] [id number] [place] [address] 13 May, 2016 [place] [id number] [place] [address] May, [facility] [place] [address] [address] Apr, [place] [id number] [place] [address] Apr, Chronic headaches R51 ; GERD (gastroesophageal reflux disease) K21.9 ; Hypertension I10 ; 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 ; Anxiety F41.9 ; COPD with acute exacerbation J44.1 ; Environmental allergies Z91.09 ; Depression F32.9 and Chronic pain G89.29 [place] [address] [address] Feb, Chronic headaches R51 and Chronic pain G89.29 [place] [address] [address] January, Chronic pain G89.29 and Anxiety F41.9 [place] [address] [address] January, Depression F32.9 and Hypertension I10 [place] [address] [address] January, Chronic pain G89.29 [place] [address] [id number] [place] [address] Dec, [place] [address] [address] Dec, [place] [address] [id number] [place] [address] Dec, Chronic headaches R51 ; Chronic pain G89.29 ; Environmental allergies Z91.09 ; GERD (gastroesophageal reflux disease) K21.9 ; Insomnia G47.00 ; Hypertension I10 and COPD with acute exacerbation J44.1 [place] [address] [address] Dec, [place] [address] [address] Dec, Chest pain R07.9 ; GERD (gastroesophageal reflux disease) K21.9 and Nausea R11.0 [place] [address] [address] Nov, [place] [address] [address] 24 Oct, 2015 COPD with acute exacerbation J44.1 ; Chronic headaches R51 ; GERD (gastroesophageal reflux disease) K21.9 ; Insomnia G47.00 ; Hypertension I10 ; Depression F32.9 and Anxiety F41.9 [place] [address] [address] Oct, [address] [address] Oct, [place] [address] [address] Oct, [address] [address] Oct, [address] [address] Oct, Flu-like symptoms R68.89 and COPD with acute exacerbation J44.1 [place] [address] [address] Oct, [address] [address] 11 Oct, 2015 Left shoulder pain M25.512 ; Chronic headaches R51 ; Environmental allergies Z91.09 ; GERD (gastroesophageal reflux disease) K21.9 ; Insomnia G47.00 ; Hypertension I10 ; Depression F32.9 and 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 [place] [id number] Sep, [place] [id number] [place] [address] Sep, COPD (chronic obstructive pulmonary disease) J44.9 [place] [address] [address] Sep, Bronchitis J40 [address] [address] Aug, Cervicalgia 723.1 ; Chronic hepatitis C without mention of hepatic coma 070.54 ; Essential hypertension 401.9 ; Chronic headaches R51 ; Environmental allergies Z91.09 ; GERD (gastroesophageal reflux disease) K21.9 ; Insomnia G47.00 ; Depression F32.9 and COPD (chronic obstructive pulmonary disease) J44.[address] [address] Jul, Essential hypertension 401.9 ; Hypertension I10 ; Depression F32.9 ; Anxiety F41.9 ; Chronic headaches R51 and Cervicalgia M54.[address] [address] Jul, Essential hypertension 401.9 and Anxiety F41.9 [place] [id number] [place] [address] Jul, [address] [address] Jul, [address] [address] Jul, Insomnia G47.00 ; GERD (gastroesophageal reflux disease) K21.9 ; Essential hypertension 401.9 ; Bipolar I disorder, most recent episode (or current) depressed, moderate 296.52 ; Hepatitis C B19.20 ; Depression F32.9 ; Hypertension I10 ; 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 ; Chronic headaches R51 and Chronic pain G89.[address] [address] Jun, [place] [id number] [place] [address] Jun, Chronic headaches R51 ; Environmental allergies Z91.09 ; GERD (gastroesophageal reflux disease) K21.9 ; Insomnia G47.00 ; Hepatitis C B19.20 ; Hypertension I10 ; Depression F32.9 ; 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 and Chronic pain G89.[address] [address] Jun, [address] [address] Jun, Vision changes H53.[address] [address] Apr, [address] [address] Apr, Bipolar I disorder, most recent episode (or current) depressed, moderate 296.52 ; Other chronic pain 338.29 ; Chronic hepatitis C without mention of hepatic coma 070.54 ; Essential hypertension 401.9 ; Environmental allergies V15.09 and GERD (gastroesophageal reflux disease) 530.81 [place] [id number] [place] [address] Mar, [place] [id number] [place] [address] Mar, [place] [id number] [place] [address] Mar, [address] [address] Mar, [place] [id number] [place] [address] Mar, [address] [address] Feb, Routine gynecological examination V72.31 ; Breast cancer screening V76.10 and Tobacco abuse 305.1 [facility] [place] [address] [address] Feb, [facility] [place] [address] [address] January, [facility] [place] [id number] [place] [address] January, [facility] [place] [id number] [place] [address] January, [facility] [place] [id number] [place] [address] January, [facility] [place] [id number] [place] [address] January, Mood disorder 296.90 and Anxiety 300.00 [facility] [place] [id number] [place] [address] January, [facility] [place] [address], [place] [address] Dec, Headache 784.0 ; Other chronic pain 338.29 and Cervicalgia 723.1 [facility] [place] [address] [address] Dec, [facility] [place] [address] [address] Dec, [facility] [place] [address] [address] Nov, [facility] [place] [address] [address] Nov, [facility] [place] [address], [place] [address] Oct, [facility] [place] [address], [place] [address] Oct, [facility] [place] [facility] [address] [id number] [place] [address] Oct, [facility] [place] [facility] [address] [id number] [place] [address] Oct, 2014 [facility] [place] [facility] [address] [id number] [place] [address] Oct, 2014 [facility] [place] [facility] [address] [id number] [place] [address] Oct, 2014 [facility] [place] [facility] [address] [id number] [place] [address] Oct, [facility] [place] [facility] [address] [id number] [place] [address] Oct, 2014 [facility] [place] [facility] [address] [facility] [id number] [place] [address] Oct, [facility] [place] [facility] [address] [id number] [place] [address] Oct, [facility] [place] [facility] [address] [id number] [place] [address] Oct, [facility] [place] [facility] [address] [facility] [id number] [place] [address] Oct, [facility] [place] [facility] [address] [id number] [place] [address] Sep, [facility] [place] [facility] [address] [id number], [place] [address] Sep, [facility] [place] [facility] [address] [id number] [place] [address] Sep, [facility] [place] [facility] [address] [facility] [id number] [place] [address] Sep, [facility] [place] [facility] [address] [facility] [id number] [place] [address] Sep, [facility] [place] [facility] [address] [id number] [place] [address] 14 Sep, 2014 [facility] [address] [id number] [place] [address] 14 Sep, 2014 [facility] [address] [id number] [place] [address] 14 Sep, 2014 [facility] [address] [id number] [place] [address] Sep, [facility] [address] [id number] [place] [address] Sep, [facility] [address] [id number] [place] [address] Sep, [facility] [address] [id number] [place] [address] Sep, [facility] [address] [id number] [place] [address] Sep, [facility] [address] [id number] [place] [address] Sep, [facility] [address] [id number] [place] [address] Aug, [facility] [address] [id number] [place] [address] 31 Aug, 2014 [facility] [address] [id number] [place] [address] Aug, [facility] [address] [id number] [place] [address] Aug, [facility] [place] [facility] [address] [id number] [place] [address] Aug, [facility] [place] [facility] [address] [id number] [place] [address] Aug, [facility] [address] [id number] [place] [address] Aug, [facility] [place] [facility] [address] [id number] [place] [address] Aug, [facility] [place] [facility] [address] [id number] [place] [address] Aug, [facility] [place] [facility] [address] [id number] [place] [address] Aug, [facility] [place] [facility] [address] [id number] [place] [address] Aug, [facility] [place] [facility] [address] [id number] [place] [address] Aug, [facility] [place] [facility] [address] [id number] [place] [address] Aug, [facility] [place] [facility] [address] [id number] [place] [address] Jul, [facility] [place] [facility] [address] [id number] [place] [address] Jul, [facility] [place] [facility] [address] [id number] [place] [address] Feb, [facility] [place] [facility] [address] [id number] [place] [address] Feb, [facility] [place] [facility] [address] [id number] [place] [address] January, [facility] [place] [facility] [address] [id number] [place] [address] January, [facility] [place] [facility] [address] [id number] [place] [address] January, [facility] [place] [facility] [address] [id number] [place] [address] January, [facility] [place] [facility] [address] [id number] [place] [address] Nov, [facility] [place] [facility] [address] [id number] [address] Nov, [facility] [address] [id number] [place] [address] Nov, [facility] [place] [facility] [address] [id number] [place] [address] Nov, [facility] [place] [facility] [address] [id number] [place] [address] Oct, [facility] [place] [facility] [address] [id number] [place] [address] Oct, [facility] [place] [facility] [address] [id number] [place] [address] Sep, [facility] [place] [facility] [address] [id number] [place] [address] Sep, [facility] [address] [facility] [id number] [place] [address] Sep, [facility] [place] [facility] [address] [id number] [place] [address] Sep, [facility] [place] [facility] [address] [facility] [id number] [place] [address] Aug, [facility] [place] [facility] [address] [facility] [id number] [place] [address] Aug, [facility] [place] [facility] [address] [facility] [id number] [place] [address] Aug, [facility] [place] [facility] [address] [id number], [place] [address] Aug, [facility] [place] [facility] [address] [id number] [place] [address] 05 Aug, 2013 [facility] [place] [facility] [address] [facility] [id number] [place] [address] Aug, [facility] [place] [facility] [address] [facility] [id number] [place] [address] Aug, [facility] [place] [facility] [address] [id number] [place] [address] Jul, [facility] [place] [facility] [address] [id number] [place] [address] 29 Jul, 2013 [facility] [place] [facility] [address] [id number] [place] [address] Jul, [facility] [place] [facility] [address] [id number] [place] [address] Jul, [facility] [place] [facility] [address] [id number] [place] [address] Jul, [facility] [place] [facility] [address] [id number] [place] [address] Jul, [facility] [place] [facility] [address] [id number] [place] [address] Jul, [facility] [place] [facility] [address] [id number] [place] [address] Jun, [facility] [place] [facility] [address] [id number] [place] [address] Jun, [facility] [place] [facility] [address] [id number] [place] [address] Jun, [facility] [place] [facility] [address] [id number] [place] [address] Jun, [facility] [place] [facility] [address] [id number] [place] [address] 24 Jul, 2010 [facility] [place] [facility] [address] [id number] [place] [address] 16 Jul, 2010 [facility] [place] [facility] [address] [id number] [place] [address] 10 Jul, 2010 [facility] [place] [facility] [address] [id number] [place] [address] Jul, [facility] [place] [facility] [address] [id number] [place] [address] Jun, [facility] [place] [address] [facility] [id number] [address] Jun, [facility] [place] [id number] [address] Jun, [facility] [place] [address] [id number] [address] Jun, [facility] [place] [id number] [address] Jun, [facility] [place] [address] [id number] [address] Mar, [facility] [place] [id number] [address] January, IMMUNIZATIONS No Known Immunizations SOCIAL HISTORY Never Assessed REASON FOR VISIT Trouble emptying bladder- blood in urine started yesterday- pain with urination JStrasserRBethany PLAN OF CARE Activity Details Follow Up prn Reason: VITAL SIGNS Height 65.2 in 2017-06-15 Weight 147.8 lbs 2017-06-15 Temperature 98.4 degrees Fahrenheit 2017-06-15 Heart Rate 56 bpm 2017-06-15 Respiratory Rate 18 2017-06-15 BMI 24.44 kg/m2 2017-06-15 Blood pressure systolic 198 mmHg 2017-06-15 Blood pressure diastolic 110 mmHg 2017-06-15 MEDICATIONS Medication Instructions Dosage Frequency Start Date End Date Duration Status Pantoprazole Sodium 40MG Orally Once a day 1 tablet 24h 90 Active HydrOXYzine HCl 25 MG Orally every 8 hrs 1 tablet as needed 8h January, Active Ciprofloxacin HCl 500 mg Orally Twice a day 1 tablet 12h 25 May, 2017 Jun, 07 days Active Trazodone HCl 100MG Orally Once a day 1 tablet at bedtime 24h 30 Active Lisinopril 10MG Orally Once a day 1 tablet 24h 90 days Active Trazodone HCl 100 mg Orally Once a day 1 tablet at bedtime 24h May, 30 day(s) Active Famotidine 20mg Orally 2 times a day TAKE ONE TABLET BY MOUTH TWICE DAILY 12h 30 Active Symbicort 160-4.5 mcg/act Inhalation Twice a day inhale 2 puffs by Inhalation route in the morning and evening 2 times per day 12h Jul, May, 90 days Active Tizanidine HCl 4 MG Orally Three times a day 1 tablet as needed 8h May, May, 90 days Active Percocet 5-325 MG Orally 2 times a day 1 tablet as needed 12h 18 May, 2017 28 days Active Premarin 0.9 MG Orally Once a day 1 tablet 24h May, 90 days Active Venlafaxine HCl ER 75 MG Orally Once a day 1 capsule with food 24h May, 30 day(s) Active EPINEPHrine 0.3 MG/0.3ML Injection PRN as directed Apr, Active Cetirizine HCl 10 mg Orally Once a day 1 tablet as needed 24h May, 90 days Active Venlafaxine HCl ER 75MG TAKE ONE CAPSULE BY MOUTH ONCE DAILY WITH FOOD 30 Active ProAir HFA 108 (90 Base) MCG/ACT Inhalation every 4 hrs 2 puffs as needed 4h Mar, Active Montelukast Sodium 10 mg Orally Once a day TAKE ONE TABLET BY MOUTH ONCE DAILY 24h 90 days Active Albuterol Sulfate (2.5 MG/3ML) 0.083% Inhalation Three times a day 3 ml 8h 15 Oct, 2015 Active Crestor 10 MG Orally Once a day 1 tablet 24h Active Flonase 50 mcg/act Nasally Once a day 1 sprays by Nasal route 2 times per day in each nostril 24h Nov, 12 months Active RESULTS Name Result Date Reference Range CULTURE, URINE 2017-06-15 Urine Culture, Routine Final report Result 1 Escherichia coli Antimicrobial Susceptibility UA LONG DIP (IN HOUSE) 2017-06-15 Lot # [id number] Exp date 2018-05-21 Clarity cloudy Color yellow Odor none GLU negative INES negative KET negative SG 1.010 BLO 2+ pH 6.0 Protein negative URO 0.2 NIT negative NORA 3+ Lot # [id number] Exp December 2017 CULTURE, URINE 2017-06-15 Urine Culture, Routine Final report Result 1 Escherichia coli Antimicrobial Susceptibility UA LONG DIP (IN HOUSE) 2017-06-15 Lot # [id number] Exp date 2018-05-21 Clarity cloudy Color yellow Odor none GLU negative INES negative KET negative SG 1.010 BLO 2+ pH 6.0 Protein negative URO 0.2 NIT negative NORA 3+ Lot # [id number] Exp date December 2017 PROCEDURES Procedure Date Ordered Result Body Site IV INFUSION 2017-06-15 NO RESULTS URINALYSIS, AUTO, W/O SCOPE Jun 15, 2017 HYDRATION IV INFUSION, INIT Jun 15, 2017 LAB NOT BILLED BY [facility] Jun 15, 2017 INSTRUCTIONS MEDICATIONS ADMINISTERED No Known Medications [...]
--- OUTSIDE RECORDS SUMMARY | 2019-04-09 01:50 | XMS REPORT ---
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 Active 79470413 Problem Menopause Z78.0 Active 280766158 Problem Postmenopausal HRT (hormone replacement therapy) Z79.890 Active 36823982 Problem COPD with acute exacerbation J44.1 Active 841993714 Problem Anxiety F41.9 Active 74689097 Problem Chest pain R07.9 Active 66411056 Problem Nausea R11.0 Active 344900677 Problem Chronic headaches R51 Active 754959717 Problem Environmental allergies Z91.09 Active 261004367 Problem Insomnia G47.00 Active 972855355 Problem Hepatitis C B19.20 Active 71925473 Problem Depression F32.9 Active 91028603 Problem Chronic pain G89.29 Active 50795772 Problem GERD (gastroesophageal reflux disease) K21.9 Active 112788820 ALLERGIES No Information ENCOUNTERS Encounter Location Date Diagnosis [facility] [address] [facility] [id number] [id number] Nov, [facility] [address] [facility] [id number], [place] [address] Nov, Bronchitis J40 [facility] [address] [id number] [id number] Nov, [facility] [address] [facility] [id number], [place] [address] Oct, COPD with acute exacerbation J44.1 [facility] [address] [id number] [id number] 12 Oct, 2017 Chronic pain G89.29 [facility] [address] [facility] [id number] [id number] Oct, [facility] [address] [id number] [id number] Sep, Chronic pain G89.29 ; Depression F32.9 ; Anxiety F41.9 ; 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 and Flu-like symptoms R68.89 [facility] ACE Alirio [place] [id number] [place] [address] Aug, Chronic pain G89.29 ; Open bite of other finger without damage to nail, initial encounter S61.258A and Bitten by dog, initial encounter W54.0XXA [place] [id number] [place] [address] Jul, Menopause Z78.0 ; Ankle swelling, unspecified laterality M25.473 ; Chronic pain G89.29 and Tobacco abuse Z72.0 [facility] [id number] [place] [address] Jun, [facility] [address] [address] 11 Jun, 2017 Chronic pain G89.29 [facility] [id number] [place] [address] 25 May, 2017 Dysuria R30.0 ; Dehydration E86.0 and Hypertension I10 [place] [address] [address] 19 May, 2017 Menopause Z78.0 ; Depression F32.9 ; Chronic pain G89.29 ; Environmental allergies Z91.09 ; 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 and Encounter for immunization Z23 [place] [address] [address] 18 May, 2017 Chronic pain G89.29 [place] [address] [place] [address] Apr, Chronic pain G89.29 [facility] [id number] [place] [address] Apr, Routine gynecological examination Z01.419 [facility] [id number] [place] [address] Mar, Chronic pain G89.29 [facility] [id number] [place] [address] Feb, [facility] [id number] [place] [address] Feb, Chronic pain G89.29 [facility] [id number] [place] [address] Feb, [facility] [id number] [place] [address] January, Chronic pain G89.29 [facility] [id number] [place] [address] January, Routine gynecological examination Z01.419 and Breast cancer screening Z12.39 [place] [id number] [place] [address] January, Chronic pain G89.29 [facility] [id number] [place] [address] Dec, Postmenopausal HRT (hormone replacement therapy) Z79.890 [facility] [id number] [place] [address] Dec, [facility] [id number] [place] [address] Nov, Chronic pain G89.29 [facility] [id number] [place] [address] Nov, Chronic headaches R51 ; GERD (gastroesophageal reflux disease) K21.9 ; Hypertension I10 ; 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 ; Hepatitis C B19.20 ; Chronic pain G89.29 ; Pain of right thumb M79.644 ; Insomnia G47.00 ; Depression F32.9 ; Environmental allergies Z91.09 and Closed fracture of tuft of distal phalanx of finger, with routine healing, subsequent encounter S62.959D [facility] [id number] [place] [address] 15 Nov, 2016 [facility] [address] [address] Nov, [facility] [id number] [place] [address] Nov, [place] [address] [address] Nov, Hypertension I10 [place] [address] [address] Nov, [facility] [address] [address] Nov, [facility] [id number] [place] [address] Oct, Anxiety F41.9 [place] [id number] [place] [address] Oct, [facility] [id number] [place] [address] Oct, Acute upper respiratory infection, unspecified J06.9 and Other viral agents as the cause of diseases classified elsewhere B97.89 [place] [id number] [place] [address] Oct, [facility] [address] [address] 02 Oct, 2016 Right acute serous otitis media, recurrence not specified H65.01 and Pharyngitis, unspecified etiology J02.9 [place] [address], [place] [address] Sep, [facility] [address], [place] [address] Aug, Environmental allergies Z91.09 [facility] [address], [place] [address] Aug, [facility] [address] [id number], [place] [address] Jul, Atypical nevi D22.9 [facility] [address], [place] [address] Jul, [facility] [id number] [place] [address] Jul, [facility] [address] [id number], [place] [address] Jul, [facility] [address] [id number], [place] [address] Jun, [facility] [address], [place] [address] May, [facility] [address], [place] [address] May, [facility] [address], [place] [address] May, [facility] [address], [place] [address] Apr, [facility] [address], [place] [address] Apr, Chronic headaches R51 ; GERD (gastroesophageal reflux disease) K21.9 ; Hypertension I10 ; 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 ; Anxiety F41.9 ; COPD with acute exacerbation J44.1 ; Environmental allergies Z91.09 ; Depression F32.9 and Chronic pain G89.29 [facility] [id number] [place] [address] Feb, Chronic headaches R51 and Chronic pain G89.29 [place] [address] [address] January, Chronic pain G89.29 and Anxiety F41.9 [place] [id number] [place] [address] January, Depression F32.9 and Hypertension I10 [place] [id number] [place] [address] January, Chronic pain G89.29 [place] [address] [address] Dec, [place] [id number] [place] [address] Dec, [place] [address] [address] Dec, Chronic pain G89.29 ; Chronic headaches R51 ; Environmental allergies Z91.09 ; GERD (gastroesophageal reflux disease) K21.9 ; Insomnia G47.00 ; Hypertension I10 and COPD with acute exacerbation J44.1 [place] [id number] [place] [address] Dec, [place] [id number] [place] [address] Dec, Chest pain R07.9 ; GERD (gastroesophageal reflux disease) K21.9 and Nausea R11.0 [place] [id number] [place] [address] Nov, [place] [address] [address] Oct, Hypertension I10 ; Anxiety F41.9 ; GERD (gastroesophageal reflux disease) K21.9 ; Depression F32.9 ; Insomnia G47.00 ; Chronic headaches R51 and COPD with acute exacerbation J44.1 [place] [id number] [place] [address] Oct, [facility] [id number] [place] [address] Oct, [facility] [id number] [place] [address] Oct, [place] [address] [address] Oct, [place] [id number] [place] [address] Oct, Flu-like symptoms R68.89 and COPD with acute exacerbation J44.1 [place] [id number] [place] [address] Oct, [address] [address] Oct, Left shoulder pain M25.512 ; Chronic headaches R51 ; Environmental allergies Z91.09 ; GERD (gastroesophageal reflux disease) K21.9 ; Insomnia G47.00 ; Hypertension I10 ; Depression F32.9 and 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 [place] [id number] [place] [address] Sep, [place] [id number] [place] [address] Sep, COPD (chronic obstructive pulmonary disease) J44.9 [place] [id number] [place] [address] Sep, Bronchitis J40 [place] [id number] [place] [address] Aug, Cervicalgia 723.1 ; Chronic hepatitis C without mention of hepatic coma 070.54 ; Essential hypertension 401.9 ; Chronic headaches R51 ; Environmental allergies Z91.09 ; GERD (gastroesophageal reflux disease) K21.9 ; Insomnia G47.00 ; Depression F32.9 and COPD (chronic obstructive pulmonary disease) J44.9 [place] [id number] [place] [address] Jul, Essential hypertension 401.9 ; Hypertension I10 ; Depression F32.9 ; Anxiety F41.9 ; Chronic headaches R51 and Cervicalgia M54.[address] [address] Jul, Essential hypertension 401.9 and Anxiety F41.[address] [address] Jul, [address] [address] Jul, [address] [address] Jul, Insomnia G47.00 ; GERD (gastroesophageal reflux disease) K21.9 ; Essential hypertension 401.9 ; Bipolar I disorder, most recent episode (or current) depressed, moderate 296.52 ; Hepatitis C B19.20 ; Depression F32.9 ; Hypertension I10 ; 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 ; Chronic headaches R51 and Chronic pain G89.[address] [address] Jun, [address] [address] Jun, Chronic headaches R51 ; Environmental allergies Z91.09 ; GERD (gastroesophageal reflux disease) K21.9 ; Insomnia G47.00 ; Hepatitis C B19.20 ; Hypertension I10 ; Depression F32.9 ; 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 and Chronic pain G89.29 [place] [id number] [place] [address] Jun, [address] [address] Jun, Vision changes H53.9 [facility] [address], [place] [address] Apr, [facility] [id number] [place] [address] Apr, Bipolar I disorder, most recent episode (or current) depressed, moderate 296.52 ; Other chronic pain 338.29 ; Chronic hepatitis C without mention of hepatic coma 070.54 ; Essential hypertension 401.9 ; Environmental allergies V15.09 and GERD (gastroesophageal reflux disease) 530.81 [facility] [address], [place] [address] Mar, [facility] [id number] [place] [address] Mar, [facility] [id number] [place] [address] Mar, [facility] [id number] [place] [address] Mar, [facility] [address], [place] [address] Mar, [facility] [address], [place] [address] Feb, Routine gynecological examination V72.31 ; Breast cancer screening V76.10 and Tobacco abuse 305.1 [facility] [address], [place] [address] Feb, [facility] [address], [place] [address] January, [facility] [id number] [place] [address] January, [facility] [address], [place] [address] January, [facility] [address], [place] [address] January, [facility] [address], [place] [address] January, Mood disorder 296.90 and Anxiety 300.00 [facility] [id number] [place] [address] January, [facility] [id number] [place] [address] Dec, Headache 784.0 ; Other chronic pain 338.29 and Cervicalgia 723.1 [facility] [id number] [place] [address] Dec, [facility] [id number] [place] [address] Dec, [facility] [id number] [place] [address] Nov, [facility] [id number] [place] [address] Nov, [facility] [address], [place] [address] Oct, [facility] [address] [place] [address] Oct, [facility] [address], [place] [address] Oct, [facility] [address] [place] [address] Oct, [facility] [address], [place] [address] Oct, [facility] [address] [place] [address] Oct, [facility] [address], [place] [address] Oct, [facility] [id number] [place] [address] 19 Oct, 2014 [facility] [address] [id number] [place] [address] 18 Oct, 2014 [facility] [place] [facility] [address] [id number] [place] [address] 18 Oct, 2014 [facility] [place] [facility] [address] [id number] [place] [address] 17 Oct, 2014 [facility] [place] [facility] [address] [id number] [place] [address] 17 Oct, 2014 [facility] [address] [id number] [place] [address] 20 Sep, 2014 [facility] [place] [facility] [address] [id number] [place] [address] Sep, [facility] [place] [facility] [address] [id number] [place] [address] Sep, [facility] [address] [id number] [place] [address] Sep, [facility] [place] [facility] [address] [id number] [place] [address] Sep, [facility] [address] [facility] [id number] [place] [address] Sep, [facility] [place] [facility] [address] [id number] [place] [address] Sep, [facility] [place] [facility] [address] [id number] [place] [address] Sep, [facility] [place] [facility] [address] [id number] [place] [address] Sep, [facility] [place] [facility] [address] [id number] [place] [address] Sep, [facility] [place] [facility] [address] [id number] [place] [address] Sep, [facility] [place] [facility] [address] [id number] [place] [address] Sep, [facility] [place] [facility] [address] [id number] [place] [address] Sep, [facility] [place] [facility] [address] [id number] [place] [address] Sep, [facility] [place] [facility] [address] [id number] [place] [address] Aug, [facility] [place] [facility] [address] [id number] [place] [address] Aug, [facility] [place] [facility] [address] [id number] [place] [address] Aug, [facility] [place] [facility] [address] [id number] [place] [address] Aug, [facility] [place] [facility] [address] [id number] [place] [address] Aug, [facility] [place] [facility] [address] [id number] [place] [address] Aug, [facility] [place] [facility] [address] [id number] [place] [address] Aug, [facility] [place] [facility] [address] [id number] [place] [address] Aug, [facility] [place] [facility] [address] [id number] [place] [address] Aug, [facility] [place] [facility] [address] [id number] [place] [address] Aug, [facility] [place] [facility] [address] [id number] [place] [address] Aug, [facility] [place] [facility] [address] [id number] [place] [address] Aug, [facility] [place] [facility] [address] [id number], [place] [address] Aug, [facility] [place] [facility] [address] [id number] [place] [address] Jul, [facility] [place] [facility] [address] [id number] [place] [address] Jul, [facility] [place] [facility] [address] [facility] [id number] [place] [address] Feb, [facility] [place] [facility] [address] [id number] [place] [address] Feb, [facility] [place] [facility] [address] [id number] [place] [address] January, [facility] [place] [facility] [address] [id number] [place] [address] January, [facility] [place] [facility] [id number] [place] [address] January, [facility] [place] [facility] [address] [facility] [id number] [place] [address] January, [facility] [place] [facility] [address] [id number] [place] [address] Nov, [facility] [place] [facility] [address] [facility] [id number] [place] [address] Nov, [facility] [place] [facility] [address] [id number] [place] [address] Nov, [facility] [place] [facility] [address] [facility] [id number] [place] [address] Nov, [facility] [place] [facility] [address] [id number] [place] [address] Oct, [facility] [place] [facility] [address] [id number] [place] [address] Oct, [facility] [place] [facility] [address] [facility] [id number] [place] [address] Sep, [facility] [place] [facility] [address] [id number] [place] [address] Sep, [facility] [place] [facility] [address] [id number] [place] [address] Sep, [facility] [place] [facility] [address] [id number] [place] [address] Sep, [facility] [place] [facility] [address] [id number] [place] [address] Aug, [facility] [place] [facility] [address] [id number] [place] [address] Aug, [facility] [place] [facility] [address] [id number] [place] [address] Aug, [facility] [place] [facility] [address] [id number] [place] [address] Aug, [facility] [place] [facility] [address] [id number] [place] [address] Aug, [facility] [place] [facility] [address] [id number] [place] [address] Aug, [facility] [place] [facility] [address] [id number] [place] [address] Aug, [facility] [place] [facility] [address] [id number] [place] [address] Jul, [facility] [place] [facility] [address] [id number] [place] [address] Jul, [facility] [place] [facility] [address] [id number] [place] [address] Jul, [facility] [place] [facility] [address] [id number] [place] [address] Jul, [facility] [place] [facility] [address] [id number] [place] [address] Jul, [facility] [place] [facility] [address] [id number] [place] [address] Jul, [facility] [place] [facility] [address] [id number] [place] [address] 08 Jul, 2013 [facility] [place] [facility] [address] [id number] [place] [address] Jun, [facility] [place] [facility] [address] [id number] [place] [address] Jun, [facility] [place] [facility] [address] [id number] [place] [address] 30 Jun, 2013 [facility] [place] [facility] [address] [id number] [place] [address] Jun, [facility] [place] [facility] [address] [id number] [place] [address] Jul, [facility] [place] [facility] [address] [id number] [place] [address] 16 Jul, 2010 [facility] [place] [facility] [address] [id number], [place] [address] Jul, [facility] [place] [facility] [address] [id number], [place] [address] Jul, [facility] [place] [facility] [address] [id number] [place] [address] Jun, [facility] [place] [facility] [address] [id number], [place] [address] 31 Jun, 2009 [facility] [place] [facility] [address] [id number], [place] [address] 29 Jun, 2009 [facility] [place] [facility] [address] [id number] [place] [address] 28 Jun, 2009 [facility] [place] [facility] [address] [id number], [place] [address] 15 Jun, 2009 [facility] [place] [facility] [address] [id number], [place] [address] 16 Mar, 2009 [facility] [place] [facility] [address] [facility] [id number] [place] [address] January, IMMUNIZATIONS No Known Immunizations SOCIAL HISTORY Never Assessed REASON FOR VISIT Refill request PLAN OF CARE VITAL SIGNS MEDICATIONS Medication Instructions Dosage Frequency Start Date End Date Duration Status Lisinopril 10MG Orally Once a day 1 [...]
--- OUTSIDE RECORDS SUMMARY | 2019-04-09 01:51 | XMS REPORT ---
Author Author SHABANA DELGADO Organization [facility] Address [address] [place] [address] Care Team Providers Care Speech Instructor Name Role Phone CHRISTYCLARISSABRITNEYSHABANA Mims Unavailable PROBLEMS Type Condition ICD9-CM Code ZSD78-FZ Code Onset Dates Condition Status SNOMED Code Problem Hypertension I10 Active 76145927 Problem Cervicalgia M54.2 Active 928558422 Problem COPD (chronic obstructive pulmonary disease) with emphysema J43.9 Active 51629131 Problem Menopause Z78.0 Active 062963072 Problem Postmenopausal HRT (hormone replacement therapy) Z79.890 Active 34298813 Problem COPD with acute exacerbation J44.1 Active 937213013 Problem Anxiety F41.9 Active 85385302 Problem Chest pain R07.9 Active 89110401 Problem Nausea R11.0 Active 866793151 Problem Chronic headaches R51 Active 409138605 Problem Environmental allergies Z91.09 Active 175998255 Problem Insomnia G47.00 Active 166289208 Problem Hepatitis C B19.20 Active 03246667 Problem Depression F32.9 Active 64826622 Problem Chronic pain G89.29 Active 11632202 Problem GERD (gastroesophageal reflux disease) K21.9 Active 549653630 ALLERGIES Substance Reaction Event Type Date Status Zoloft hypotension Drug Allergy Aug, Active Wellbutrin jittery Drug Allergy Aug, Active Tramadol HCl anaphylaxis Drug Allergy Aug, Active Tetracycline HCl rash Drug Allergy Aug, Active Sulfamethoxazole-Trimethoprim Unknown Drug Allergy Aug, Active Penicillin V Potassium rash Drug Allergy Aug, Active Morphine Sulfate anaphylaxis Drug Allergy Aug, Active Doxycycline Hyclate rash Drug Allergy Aug, Active Wasp/hornet/bee stings anaphylaxis Non Drug Allergy Aug, Active ENCOUNTERS Encounter Location Date Diagnosis [facility] [address] [facility] [id number] [id number] 31 May, 2018 Vaginal discharge N89.8 ; Increased urinary frequency R35.0 ; Acute cystitis with hematuria N30.01 ; Other specified bacterial agents as the cause of diseases classified elsewhere B96.89 and Acute vaginitis N76.[id number] [place] [address] [id number] January, Chronic pain G89.29 and Candidiasis B37.9 [facility] [id number] [place] [address] January, [facility] [id number] [place] [address] Dec, Acute frontal sinusitis, recurrence not specified J01.10 and Cough R05 [place] [id number] [place] [address] [id number] Dec, [place] [id number] [place] [address] [id number] Nov, [facility] [address] [place] [id number] [place] [address] Nov, Bronchitis J40 [address] [id number] [id number] Nov, [facility] [address] [place] [id number] [place] [address] Oct, COPD with acute exacerbation J44.1 [id number] [place] [id number] Oct, Chronic pain G89.29 [address] [place] [id number] Oct, [place] [id number] [place] [address] [id number] Sep, Chronic pain G89.29 ; Depression F32.9 ; Anxiety F41.9 ; 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 and Flu-like symptoms R68.[address] [facility] [address] [id number] [place] [address] Aug, Chronic pain G89.29 ; Open bite of other finger without damage to nail, initial encounter S61.258A and Bitten by dog, initial encounter W54.0XXA [place] [address] [address] Jul, Menopause Z78.0 ; Ankle swelling, unspecified laterality M25.473 ; Chronic pain G89.29 and Tobacco abuse Z72.0 [facility] [address] [address] Jun, [place] [address] [address] Jun, Chronic pain G89.29 [facility] [address] [place] [address] May, Dysuria R30.0 ; Dehydration E86.0 and Hypertension I10 [address] [address] 19 May, 2017 Menopause Z78.0 ; Depression F32.9 ; Chronic pain G89.29 ; Environmental allergies Z91.09 ; 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 and Encounter for immunization Z23 [address] [address] 18 May, 2017 Chronic pain G89.[address] [address] Apr, Chronic pain G89.29 [place] [address] [address] Apr, Routine gynecological examination Z01.[address] [address] Mar, Chronic pain G89.29 [place] [address] [address] Feb, [place] [address] [address] Feb, Chronic pain G89.29 [place] [address] [address] Feb, [place] [id number] [place] [address] January, Chronic pain G89.29 [place] [address], [place] [address] January, Routine gynecological examination Z01.419 and Breast cancer screening Z12.39 [place] [address] [place] [address] January, Chronic pain G89.29 [place] [id number] [place] [address] Dec, Postmenopausal HRT (hormone replacement therapy) Z79.890 [place] [id number] [place] [address] Dec, [place] [id number] [place] [address] Nov, Chronic pain G89.29 [address] [place] [address] Nov, Chronic headaches R51 ; GERD (gastroesophageal reflux disease) K21.9 ; Hypertension I10 ; 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 ; Hepatitis C B19.20 ; Chronic pain G89.29 ; Pain of right thumb M79.644 ; Insomnia G47.00 ; Depression F32.9 ; Environmental allergies Z91.09 and Closed fracture of tuft of distal phalanx of finger, with routine healing, subsequent encounter S62.639D [place] [id number] [place] [address] Nov, [address] [address] Nov, [place] [id number] [place] [address] Nov, [facility] [address], [place] [address] Nov, Hypertension I10 [facility] [id number] [place] [address] Nov, [facility] [id number] [place] [address] Nov, [facility] [id number] [place] [address] Oct, Anxiety F41.9 [facility] [id number] [place] [address] Oct, [facility] [id number] [place] [address] Oct, Acute upper respiratory infection, unspecified J06.9 and Other viral agents as the cause of diseases classified elsewhere B97.89 [facility] [id number] [place] [address] Oct, [facility] [id number] [place] [address] Oct, Right acute serous otitis media, recurrence not specified H65.01 and Pharyngitis, unspecified etiology J02.9 [facility] [address] [place] [address] Sep, [facility] [id number] [place] [address] Aug, Environmental allergies Z91.09 [facility] [id number] [place] [address] Aug, [facility] [id number] [place] [address] Jul, Atypical nevi D22.9 [facility] [id number] [place] [address] Jul, [facility] [address], [place] [address] Jul, [facility] [address], [place] [address] Jul, [facility] [address], [place] [address] Jun, [facility] [id number] [place] [address] May, [facility] [id number] [place] [address] May, [facility] [id number] [place] [address] May, [facility] [address] [place] [address] Apr, [facility] [id number] [place] [address] Apr, Chronic headaches R51 ; GERD (gastroesophageal reflux disease) K21.9 ; Hypertension I10 ; 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 ; Anxiety F41.9 ; COPD with acute exacerbation J44.1 ; Environmental allergies Z91.09 ; Depression F32.9 and Chronic pain G89.29 [facility] [address], [place] [address] Feb, Chronic headaches R51 and Chronic pain G89.29 [facility] [address], [place] [address] January, Chronic pain G89.29 and Anxiety F41.9 [facility] [address], [place] [address] January, Depression F32.9 and Hypertension I10 [facility] [address], [place] [address] January, Chronic pain G89.29 [facility] [id number] [place] [address] Dec, [facility] [address] [address] Dec, [place] [id number] [place] [address] Dec, Chronic pain G89.29 ; Chronic headaches R51 ; Environmental allergies Z91.09 ; GERD (gastroesophageal reflux disease) K21.9 ; Insomnia G47.00 ; Hypertension I10 and COPD with acute exacerbation J44.1 [place] [address] [address] Dec, [address] [address] 06 Dec, 2015 Chest pain R07.9 ; GERD (gastroesophageal reflux disease) K21.9 and Nausea R11.[address] [address] Nov, [place] [address] [address] Oct, Hypertension I10 ; Anxiety F41.9 ; GERD (gastroesophageal reflux disease) K21.9 ; Depression F32.9 ; Insomnia G47.00 ; Chronic headaches R51 and COPD with acute exacerbation J44.1 [place] [id number] [place] [address] Oct, [place] [id number] [place] [address] Oct, [place] [id number] [place] [address] Oct, [place] [address] [address] Oct, [place] [address] [id number] [place] [address] 15 Feb, 2016 Flu-like symptoms R68.89 and COPD with acute exacerbation J44.1 [place] [id number] [place] [address] 12 Oct, 2015 [place] [address] [address] 11 Oct, 2015 Left shoulder pain M25.512 ; Chronic headaches R51 ; Environmental allergies Z91.09 ; GERD (gastroesophageal reflux disease) K21.9 ; Insomnia G47.00 ; Hypertension I10 ; Depression F32.9 and 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 [place] [id number] [place] [address] Sep, [place] [address] [address] Sep, COPD (chronic obstructive pulmonary disease) J44.9 [place] [address] [address] Sep, Bronchitis J40 [place] [id number] [place] [address] Aug, Cervicalgia 723.1 ; Chronic hepatitis C without mention of hepatic coma 070.54 ; Essential hypertension 401.9 ; Chronic headaches R51 ; Environmental allergies Z91.09 ; GERD (gastroesophageal reflux disease) K21.9 ; Insomnia G47.00 ; Depression F32.9 and COPD (chronic obstructive pulmonary disease) J44.9 [place] [id number] [place] [address] Jul, Essential hypertension 401.9 ; Hypertension I10 ; Depression F32.9 ; Anxiety F41.9 ; Chronic headaches R51 and Cervicalgia M54.2 [place] [id number] [place] [address] Jul, Essential hypertension 401.9 and Anxiety F41.[address] [address] Jul, [id number] [place] [address] Jul, [place] [address] [address] Jul, Insomnia G47.00 ; GERD (gastroesophageal reflux disease) K21.9 ; Essential hypertension 401.9 ; Bipolar I disorder, most recent episode (or current) depressed, moderate 296.52 ; Hepatitis C B19.20 ; Depression F32.9 ; Hypertension I10 ; 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 ; Chronic headaches R51 and Chronic pain G89.29 [place] [address] [address] Jun, [place] [address] [address] Jun, Chronic headaches R51 ; Environmental allergies Z91.09 ; GERD (gastroesophageal reflux disease) K21.9 ; Insomnia G47.00 ; Hepatitis C B19.20 ; Hypertension I10 ; Depression F32.9 ; 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 and Chronic pain G89.29 [place] [address] [address] Jun, [place] [address] [address] Jun, Vision changes H53.[address] [address] Apr, [place] [address] [address] Apr, Bipolar I disorder, most recent episode (or current) depressed, moderate 296.52 ; Other chronic pain 338.29 ; Chronic hepatitis C without mention of hepatic coma 070.54 ; Essential hypertension 401.9 ; Environmental allergies V15.09 and GERD (gastroesophageal reflux disease) 530.81 [place] [address] [address] Mar, [place] [address], [place] [address] Mar, [facility] [address], [place] [address] Mar, [facility] [address], [place] [address] Mar, [facility] [address], [place] [address] Mar, [facility] [address], [place] [address] Feb, Routine gynecological examination V72.31 ; Breast cancer screening V76.10 and Tobacco abuse 305.1 [facility] [address], [place] [address] Feb, [facility] [address], [place] [address] January, [facility] [address], [place] [address] January, [facility] [address], [place] [address] January, [facility] [address], [place] [address] January, [facility] [address], [place] [address] January, Mood disorder 296.90 and Anxiety 300.00 [facility] [address], [place] [address] January, [facility] [address], [place] [address] Dec, Headache 784.0 ; Other chronic pain 338.29 and Cervicalgia 723.1 [facility] [address], [place] [address] Dec, [facility] [place] [facility] [address] [id number] [place] [address] 13 Dec, 2014 [facility] [place] [facility] [address] [id number] [place] [address] Nov, [facility] [place] [facility] [address] [id number] [place] [address] Nov, [facility] [place] [facility] [address] [id number] [place] [address] Oct, 2014 [facility] [place] [facility] [address] [id number] [place] [address] Oct, 2014 [facility] [place] [facility] [address] [id number] [place] [address] Oct, 2014 [facility] [place] [facility] [address] [facility] [id number] [place] [address] Oct, 2014 [facility] [place] [facility] [address] [facility] [id number] [place] [address] Oct, 2014 [facility] [place] [facility] [address] [facility] [id number] [place] [address] Oct, 2014 [facility] [place] [facility] [address] [facility] [id number] [place] [address] Oct, 2014 [facility] [place] [facility] [address] [facility] [id number] [place] [address] Oct, 2014 [facility] [place] [facility] [address] [facility] [id number] [address] Oct, 2014 [facility] [place] [facility] [address] [facility] [id number] [place] [address] Oct, 2014 [facility] [place] [facility] [address] [facility] [id number] [place] [address] Oct, 2014 [facility] [place] [facility] [address] [facility] [id number] [place] [address] Oct, 2014 [facility] [place] [facility] [address] [facility] [id number] [place] [address] Sep, [facility] [address] [id number] [place] [address] Sep, [facility] [place] [facility] [address] [id number] [place] [address] Sep, [facility] [place] [facility] [address] [id number] [place] [address] 15 Sep, 2014 [facility] [place] [facility] [address] [id number] [place] [address] 15 Sep, 2014 [facility] [place] [facility] [address] [id number] [place] [address] Sep, [facility] [place] [facility] [address] [id number] [place] [address] Sep, [facility] [place] [facility] [address] [id number] [place] [address] Sep, [facility] [place] [facility] [address] [id number] [place] [address] Sep, [facility] [place] [facility] [address] [id number] [place] [address] Sep, [facility] [place] [facility] [address] [id number] [place] [address] Sep, [facility] [place] [facility] [address] [id number] [place] [address] Sep, [facility] [place] [facility] [address] [id number] [place] [address] Sep, [facility] [place] [facility] [address] [id number] [place] [address] Sep, [facility] [place] [facility] [address] [id number] [place] [address] Aug, [facility] [place] [facility] [address] [id number] [place] [address] Aug, [facility] [place] [facility] [address] [id number] [place] [address] Aug, [facility] [place] [facility] [address] [id number] [place] [address] Aug, [facility] [place] [facility] [address] [id number] [place] [address] Aug, [facility] [place] [facility] [address] [id number] [place] [address] Aug, [facility] [place] [facility] [address] [id number] [place] [address] Aug, [facility] [place] [facility] [address] [id number] [place] [address] Aug, [facility] [place] [facility] [address] [id number] [place] [address] Aug, [facility] [place] [facility] [address] [id number] [place] [address] Aug, [facility] [place] [facility] [address] [id number] [place] [address] Aug, [facility] [place] [facility] [address] [id number] [place] [address] Aug, [facility] [place] [facility] [address] [id number] [place] [address] Aug, [facility] [place] [facility] [address] [id number] [place] [address] Jul, [facility] [place] [facility] [address] [id number] [place] [address] Jul, [facility] [place] [facility] [address] [id number] [place] [address] Feb, [facility] [place] [facility] [address] [id number] [place] [address] Feb, [facility] [place] [facility] [address] [id number] [place] [address] January, [facility] [place] [facility] [address] [id number] [place] [address] January, [facility] [place] [facility] [address] [id number] [place] [address] January, [facility] [place] [facility] [address] [id number] [place] [address] January, [facility] [place] [facility] [address] [id number] [place] [address] Nov, [facility] [place] [facility] [address] [id number] [place] [address] Nov, [facility] [place] [facility] [address] [id number] [place] [address] Nov, [facility] [place] [facility] [address] [id number] [place] [address] Nov, [facility] [place] [facility] [address] [id number] [place] [address] Oct, [facility] [place] [facility] [address] [id number] [place] [address] Oct, [facility] [place] [facility] [address] [id number] [place] [address] Sep, [facility] [place] [facility] [address] [id number] [place] [address] Sep, [facility] [place] [facility] [address] [id number] [place] [address] Sep, [facility] [place] [facility] [address] [id number] [place] [address] Sep, [facility] [place] [facility] [address] [id number] [place] [address] Aug, [facility] [place] [facility] [address] [id number] [place] [address] Aug, [facility] [place] [facility] [address] [id number] [place] [address] 06 Aug, 2012 [facility] [address] [id number] [place] [address] Aug, [facility] [place] [facility] [address] [id number] [place] [address] Aug, [facility] [address] [id number] [place] [address] Aug, [facility] [place] [facility] [address] [id number] [place] [address] Aug, [facility] [address] [id number] [place] [address] Jul, [facility] [address] [id number] [place] [address] Jul, [facility] [address] [id number] [place] [address] Jul, [facility] [address] [id number] [place] [address] Jul, [facility] [place] [facility] [address] [id number] [place] [address] Jul, [facility] [address] [facility] [id number] [place] [address] Jul, [facility] [place] [facility] [address] [id number] [place] [address] Jul, [facility] [place] [facility] [address] [id number], [place] [address] Jun, [facility] [place] [facility] [address] [id number] [place] [address] Jun, [facility] [place] [facility] [address] [id number] [place] [address] Jun, [facility] [place] [facility] [address] [id number] [place] [address] Jun, [facility] [address] [place] [address] Jul, [facility] [address] [place] [address] Jul, [facility] [address], [place] [address] Jul, [facility] [id number] [place] [address] Jul, [facility] [address], [place] [address] Jun, [facility] [id number] [place] [address] Jun, [facility] [id number] [place] [address] Jun, [facility] [id number] [place] [address] Jun, [facility] [address], [place] [address] Jun, [facility] [address], [place] [address] Mar, [facility] [address], [place] [address] January, IMMUNIZATIONS No Known Immunizations SOCIAL HISTORY Never Assessed REASON FOR VISIT 1 mo f/u-ameritox,narcotic contract. TONG Blackwell PLAN OF CARE Activity Details Follow Up 4 Weeks Reason: VITAL SIGNS Height 65.2 in 2017-09-01 Weight 141.8 lbs 2017-09-01 Temperature 98.0 degrees Fahrenheit 2017-09-01 Heart Rate 70 bpm 2017-09-01 Respiratory Rate 18 2017-09-01 BMI 23.45 kg/m2 2017-09-01 Blood pressure systolic 148 mmHg 2017-09-01 Blood pressure diastolic 98 mmHg 2017-09-01 MEDICATIONS Medication Instructions Dosage Frequency Start Date End Date Duration Status Fentanyl 50 MCG/HR Transdermal Q72 hours 1 patch to skin Aug, 9 Sep, 2017 28 days Active Montelukast Sodium 10 mg Orally Once a day TAKE ONE TABLET BY MOUTH ONCE DAILY 24h 90 days Active Crestor 10 MG Orally Once a day 1 tablet 24h Active Fentanyl 25 MCG/HR 1 patch to skin Active Tizanidine HCl 4 MG Orally Three times a day 1 tablet as needed 8h 19 May, 2017 May, 90 days Active Clindamycin HCl 150 MG Orally 3 times a day 3 capsules 8h Aug, 17 Aug, 2017 5 day(s) Active Albuterol Sulfate (2.5 MG/3ML) 0.083% Inhalation Three times a day 3 ml 8h 15 Oct, 2015 Active Percocet 5-325 MG Orally 2 times a day 1 tablet as needed 12h 16 Jun, 2017 28 days Active Pantoprazole Sodium 40MG Orally Once a day 1 tablet 24h 90 Active Venlafaxine HCl ER 75 MG Orally Once a day 1 capsule with food 24h May, 30 day(s) Active Lisinopril 10MG Orally Once a day 1 tablet 24h 90 days Active HydrOXYzine HCl 25 MG Orally every 8 hrs 1 tablet as needed 8h January, Active Famotidine 20mg Orally 2 times a day TAKE ONE TABLET BY MOUTH TWICE DAILY 12h 30 Active Ciprofloxacin HCl 500 mg Orally Twice a day 1 tablet 12h Aug, 17 Aug, 2017 05 days Active Cetirizine HCl 10 mg Orally Once a day 1 tablet as needed 24h 14 May, 2018 90 days Active EPINEPHrine 0.3 MG/0.3ML Injection PRN as directed Apr, Active Oxycodone-Acetaminophen 5-325 MG Orally 3 times a day 1 tablet as needed 8h 12 Aug, 2017 9 Sep, 2017 28 days Active Premarin 0.9 MG Orally Once a day 1 tablet 24h 19 May, 2017 90 days Active ProAir HFA 108 (90 Base) MCG/ACT Inhalation every 4 hrs 2 puffs as needed 4h Mar, Active Symbicort 160-4.5 mcg/act Inhalation Twice a day inhale 2 puffs by Inhalation route in the morning and evening 2 times per day 12h 20 Jul, 2014 14 May, 2018 90 days Active Flonase 50 mcg/act Nasally Once a day 1 sprays by Nasal route 2 times per day in each nostril 24h 18 Nov, 2014 12 months Active Trazodone HCl 100MG Orally Once a day 1 tablet at bedtime 24h 30 Active Venlafaxine HCl ER 75MG TAKE ONE CAPSULE BY MOUTH ONCE DAILY WITH FOOD 30 Active RESULTS No Results PROCEDURES No Known [...] child Hospitalization History low blood pressure--[facility] 12/2017
--- OUTSIDE RECORDS SUMMARY | 2019-04-09 01:52 | XMS REPORT ---
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 Active 66597255 Problem Menopause Z78.0 Active 114757674 Problem Postmenopausal HRT (hormone replacement therapy) Z79.890 Active 14078426 Problem COPD with acute exacerbation J44.1 Active 781409854 Problem Anxiety F41.9 Active 19744913 Problem Chest pain R07.9 Active 44961634 Problem Nausea R11.0 Active 460430988 Problem Chronic headaches R51 Active 814805810 Problem Environmental allergies Z91.09 Active 361145679 Problem Insomnia G47.00 Active 665836900 Problem Hepatitis C B19.20 Active 70481705 Problem Depression F32.9 Active 46833749 Problem Chronic pain G89.29 Active 94503721 Problem GERD (gastroesophageal reflux disease) K21.9 Active 143872566 ALLERGIES No Information ENCOUNTERS Encounter Location Date Diagnosis [facility] [address] [facility] [id number] [address] Dec, Acute frontal sinusitis, recurrence not specified J01.10 and Cough R05 [facility] [address] [facility] [id number] [id number] Dec, [facility] [address] [facility] [id number][place] [id number] Nov, [facility] [address] [facility] [id number] [place] [address] Nov, Bronchitis J40 [facility] [address] [id number] [place] [id number] Nov, [facility] [address] [address] Oct, COPD with acute exacerbation J44.1 [facility] [id number] [id number] Oct, Chronic pain G89.29 [facility] [id number] [id number] Oct, [facility] [id number] [address] Sep, Chronic pain G89.29 ; Depression F32.9 ; Anxiety F41.9 ; 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 [place] Formerly named [facility] [place] [id number] [place] [address] Aug, Chronic pain G89.29 ; Open bite of other finger without damage to nail, initial encounter S61.258A and Bitten by dog, initial encounter W54.0XXA [address] [place] [address] Jul, Menopause Z78.0 ; Ankle swelling, unspecified laterality M25.473 ; Chronic pain G89.29 and Tobacco abuse Z72.0 [facility] [address] [address] Jun, [facility] [id number] [place] [address] Jun, Chronic pain G89.29 [facility] [id number] [place] [address] May, Dysuria R30.0 ; Dehydration E86.0 and Hypertension I10 [place] [id number] [place] [address] May, Menopause Z78.0 ; Depression F32.9 ; Chronic pain G89.29 ; Environmental allergies Z91.09 ; 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 and Encounter for immunization Z23 [facility] [id number] [place] [address] May, Chronic pain G89.29 [facility] [id number] [place] [address] Apr, Chronic pain G89.29 [facility] [id number] [place] [address] Apr, Routine gynecological examination Z01.419 [facility] [id number] [place] [address] Mar, Chronic pain G89.29 [facility] [id number] [place] [address] Feb, [facility] [id number] [place] [address] Feb, Chronic pain G89.29 [facility] [id number] [place] [address] Feb, [facility] [id number] [place] [address] January, Chronic pain G89.29 [facility] [id number] [place] [address] January, Routine gynecological examination Z01.419 and Breast cancer screening Z12.39 [facility] [id number] [place] [address] January, Chronic pain G89.29 [facility] [id number] [place] [address] Dec, Postmenopausal HRT (hormone replacement therapy) Z79.890 [facility] [id number] [place] [address] Dec, [facility] [id number] [place] [address] Nov, Chronic pain G89.29 [facility] [id number] [place] [address] 30 Nov, 2016 Chronic headaches R51 ; [...] finger, with routine healing, subsequent encounter S62.639D [place] [address] [address] Nov, [place] [address] [address] Nov, [place] [address] [address] Nov, [facility] [id number] [place] [address] Nov, Hypertension I10 [place] [address] [address] Nov, [place] [id number] [place] [address] Nov, [place] [id number] [place] [address] Oct, Anxiety F41.9 [facility] [id number] [place] [address] Oct, [facility] [id number] [place] [address] Oct, Acute upper respiratory infection, unspecified J06.9 and Other viral agents as the cause of diseases classified elsewhere B97.89 [place] [address] [address] Oct, [facility] [address] [address] Oct, Right acute serous otitis media, recurrence not specified H65.01 and Pharyngitis, unspecified etiology J02.9 [facility] [id number] [place] [address] Sep, [facility] [id number] [place] [address] Aug, Environmental allergies Z91.09 [facility] [id number] [place] [address] Aug, [facility] [id number] [place] [address] Jul, Atypical nevi D22.9 [facility] [id number] [place] [address] Jul, [facility] [id number] [place] [address] Jul, [facility] [id number] [place] [address] Jul, [facility] [id number] [place] [address] Jun, [facility] [address] [place] [address] May, [facility] [id number] [place] [address] May, [facility] [id number] [place] [address] May, [facility] [id number] [place] [address] Apr, [facility] [address] [address] Apr, Chronic headaches R51 ; GERD (gastroesophageal reflux disease) K21.9 ; Hypertension I10 ; 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 ; Anxiety F41.9 ; COPD with acute exacerbation J44.1 ; Environmental allergies Z91.09 ; Depression F32.9 and Chronic pain G89.29 [facility] [id number] [place] [address] Feb, Chronic headaches R51 and Chronic pain G89.29 [place] [address] [address] January, Chronic pain G89.29 and Anxiety F41.9 [place] [address] [address] January, Depression F32.9 and Hypertension I10 [place] [address] [address] January, Chronic pain G89.29 [place] [address] [address] Dec, [place] [address] [address] Dec, [place] [id number] [place] [address] Dec, Chronic headaches R51 ; Chronic pain G89.29 ; Environmental allergies Z91.09 ; GERD (gastroesophageal reflux disease) K21.9 ; Insomnia G47.00 ; Hypertension I10 and COPD with acute exacerbation J44.1 [facility] [id number] [place] [address] Dec, [place] [address] [address] Dec, Chest pain R07.9 ; GERD (gastroesophageal reflux disease) K21.9 and Nausea R11.0 [place] [id number] [place] [address] Nov, [place] [address] [place] [address] [place] [address] 24 Oct, 2015 COPD with acute exacerbation J44.1 ; Chronic headaches R51 ; GERD (gastroesophageal reflux disease) K21.9 ; Insomnia G47.00 ; Hypertension I10 ; Depression F32.9 and Anxiety F41.9 [facility] [id number] [place] [address] Oct, [facility] [address] [address] Oct, [place] [address] [address] Oct, [place] [address] [address] Oct, [place] [id number] [place] [address] 15 Oct, 2015 Flu-like symptoms R68.89 and COPD with acute exacerbation J44.1 [place] [id number] [place] [address] Oct, [place] [id number] [place] [address] Oct, Left shoulder pain M25.512 ; Chronic headaches R51 ; Environmental allergies Z91.09 ; GERD (gastroesophageal reflux disease) K21.9 ; Insomnia G47.00 ; Hypertension I10 ; Depression F32.9 and 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 [place] [id number] [place] [address] Sep, [place] [address] [address] Sep, COPD (chronic obstructive pulmonary disease) J44.9 [place] [id number] [place] [address] Sep, Bronchitis J40 [place] [address] [address] Aug, Cervicalgia 723.1 ; Chronic hepatitis C without mention of hepatic coma 070.54 ; Essential hypertension 401.9 ; Chronic headaches R51 ; Environmental allergies Z91.09 ; GERD (gastroesophageal reflux disease) K21.9 ; Insomnia G47.00 ; Depression F32.9 and COPD (chronic obstructive pulmonary disease) J44.[address] [address] Jul, Essential hypertension 401.9 ; Hypertension I10 ; Depression F32.9 ; Anxiety F41.9 ; Chronic headaches R51 and Cervicalgia M54.[address] [address] Jul, Essential hypertension 401.9 and Anxiety F41.[address] [address] Jul, [address] [address] Jul, [address] [address] Jul, Insomnia G47.00 ; GERD (gastroesophageal reflux disease) K21.9 ; Essential hypertension 401.9 ; Bipolar I disorder, most recent episode (or current) depressed, moderate 296.52 ; Hepatitis C B19.20 ; Depression F32.9 ; Hypertension I10 ; 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 ; Chronic headaches R51 and Chronic pain G89.29 [place] [id number] [place] [address] Jun, [address] [address] Jun, Chronic headaches R51 ; Environmental allergies Z91.09 ; GERD (gastroesophageal reflux disease) K21.9 ; Insomnia G47.00 ; Hepatitis C B19.20 ; Hypertension I10 ; Depression F32.9 ; 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 and Chronic pain G89.29 [facility] [id number] [place] [address] Jun, [facility] [id number] [place] [address] Jun, Vision changes H53.9 [facility] [id number] [place] [address] Apr, [facility] [address] [address] Apr, Bipolar I disorder, most recent episode (or current) depressed, moderate 296.52 ; Other chronic pain 338.29 ; Chronic hepatitis C without mention of hepatic coma 070.54 ; Essential hypertension 401.9 ; Environmental allergies V15.09 and GERD (gastroesophageal reflux disease) 530.81 [facility] [id number] [place] [address] Mar, [facility] [id number] [place] [address] Mar, [facility] [id number] [place] [address] Mar, [facility] [id number] [place] [address] Mar, [facility] [id number] [place] [address] Mar, [facility] [id number] [place] [address] Feb, Routine gynecological examination V72.31 ; Breast cancer screening V76.10 and Tobacco abuse 305.1 [facility] [id number] [place] [address] Feb, [facility] [id number] [place] [address] January, [facility] [address] [address] January, [facility] [address] [address] January, [facility] [id number] [place] [address] January, [facility] [id number] [place] [address] January, Mood disorder 296.90 and Anxiety 300.00 [facility] [id number] [place] [address] January, [facility] [id number] [place] [address] Dec, Headache 784.0 ; Other chronic pain 338.29 and Cervicalgia 723.1 [facility] [id number] [place] [address] Dec, [facility] [id number] [place] [address] Dec, [facility] [id number] [address] Nov, [facility] [id number] [place] [address] Nov, [facility] [address] [address] Oct, [facility] [address] [address] Oct, [facility] [address] [address] Oct, [facility] [address] [address] Oct, [facility] [address] [address] Oct, [facility] [address] [place] [address] 20 Oct, 2014 [facility] [place] [facility] [address] [id number] [place] [address] 19 Oct, 2014 [facility] [place] [facility] [address] [id number] [place] [address] 19 Oct, 2014 [facility] [place] [facility] [address] [id number] [place] [address] 18 Oct, 2014 [facility] [place] [facility] [address] [id number] [place] [address] 18 Oct, 2014 [facility] [place] [facility] [address] [id number] [place] [address] 17 Oct, 2014 [facility] [place] [facility] [address] [id number] [place] [address] 17 Oct, 2014 [facility] [place] [facility] [address] [id number] [place] [address] 20 Sep, 2014 [facility] [place] [facility] [address] [id number] [place] [address] Sep, [facility] [place] [facility] [address] [id number] [place] [address] 19 Sep, 2014 [facility] [place] [facility] [address] [id number] [place] [address] 15 Sep, 2014 [facility] [place] [facility] [address] [id number] [place] [address] 15 Sep, 2014 [facility] [place] [facility] [address] [id number] [place] [address] 14 Sep, 2014 [facility] [place] [facility] [address] [id number] [place] [address] 14 Sep, 2014 [facility] [place] [facility] [address] [id number] [place] [address] 14 Sep, 2014 [facility] [place] [facility] [address] [id number] [place] [address] Sep, [facility] [place] [facility] [address] [id number] [place] [address] Sep, [facility] [place] [facility] [address] [id number] [place] [address] Sep, [facility] [place] [facility] [address] [id number] [place] [address] Sep, [facility] [place] [facility] [address] [id number] [place] [address] Sep, [facility] [place] [facility] [address] [id number] [place] [address] Sep, [facility] [place] [facility] [address] [id number] [place] [address] Aug, [facility] [place] [facility] [address] [id number] [place] [address] Aug, [facility] [place] [facility] [address] [id number] [place] [address] Aug, [facility] [place] [facility] [address] [id number] [place] [address] Aug, [facility] [place] [facility] [address] [id number] [place] [address] Aug, [facility] [place] [facility] [address] [id number] [place] [address] Aug, [facility] [place] [facility] [address] [id number] [place] [address] Aug, [facility] [place] [facility] [address] [id number] [place] [address] Aug, [facility] [place] [facility] [address] [id number] [place] [address] Aug, [facility] [place] [facility] [address] [id number] [place] [address] Aug, [facility] [place] [facility] [address] [id number] [place] [address] Aug, [facility] [address] [id number] [place] [address] Aug, [facility] [place] [facility] [address] [id number] [place] [address] Aug, [facility] [place] [facility] [address] [id number] [place] [address] Jul, [facility] [place] [facility] [address] [id number] [place] [address] Jul, [facility] [address] [id number] [place] [address] Feb, [facility] [place] [facility] [address] [id number] [place] [address] Feb, [facility] [place] [facility] [address] [id number] [place] [address] January, [facility] [place] [facility] [address] [id number] [place] [address] January, [facility] [place] [facility] [address] [id number] [place] [address] January, [facility] [address] [facility] [id number] [place] [address] January, [facility] [place] [facility] [address] [id number] [place] [address] Nov, [facility] [place] [facility] [address] [id number] [place] [address] Nov, [facility] [place] [facility] [address] [id number] [place] [address] Nov, [facility] [place] [facility] [address] [id number] [place] [address] Nov, [facility] [place] [facility] [address] [id number] [place] [address] Oct, [facility] [place] [facility] [address] [id number] [place] [address] Oct, [facility] [place] [facility] [address] [id number] [place] [address] Sep, [facility] [place] [facility] [address] [id number] [place] [address] Sep, [facility] [place] [facility] [address] [id number] [place] [address] Sep, [facility] [place] [facility] [address] [id number] [place] [address] Sep, [facility] [place] [facility] [address] [id number] [place] [address] Aug, [facility] [place] [facility] [address] [id number] [place] [address] Aug, [facility] [place] [facility] [address] [id number] [place] [address] Aug, [facility] [place] [facility] [address] [id number] [place] [address] Aug, [facility] [place] [facility] [address] [facility] [id number] [place] [address] Aug, [facility] [place] [facility] [address] [id number] [place] [address] Aug, [facility] [place] [facility] [address] [id number] [place] [address] Aug, [facility] [place] [facility] [address] [id number] [place] [address] Jul, [facility] [place] [facility] [address] [id number] [place] [address] Jul, [facility] [place] [facility] [address] [id number] [place] [address] Jul, [facility] [place] [facility] [address] [id number] [place] [address] 13 Jul, 2013 [facility] [place] [facility] [address] [id number] [place] [address] 13 Jul, 2013 [facility] [place] [facility] [address] [id number] [place] [address] Jul, [facility] [place] [facility] [address] [id number] [place] [address] 08 Jul, 2013 [facility] [place] [facility] [address] [id number] [place] [address] Jun, [facility] [place] [facility] [address] [id number] [place] [address], [place] [address] Jun, [facility] [place] [facility] [address] [id number] [place] [address] Jun, [facility] [place] [facility] [address] [id number] [place] [address] Jun, [facility] [place] [facility] [address] [id number] [place] [address] 24 Jul, 2010 [facility] [place] [facility] [address] [id number] [place] [address] 16 Jul, 2010 [facility] [place] [facility] [address] [facility] [id number] [place] [address] Jul, [facility] [place] [facility] [address] [id number] [place] [address] Jul, [facility] [place] [facility] [address] [id number] [place] [address] Jun, [facility] [place] [facility] [address] [id number] [place] [address] 31 Jun, 2009 [facility] [place] [facility] [address] [id number] [place] [address] 29 Jun, 2009 [facility] [place] [facility] [address] [id number] [place] [address] 28 Jun, 2009 [facility] [place] [facility] [address] [facility] [id number] [place] [address] Jun, [facility] [address] [facility] [id number] [place] [address] Mar, [facility] [address] [facility] [id number] [place] [address] January, IMMUNIZATIONS No Known Immunizations SOCIAL HISTORY Never Assessed REASON FOR VISIT Percocet- 06/08 PLAN OF CARE VITAL SIGNS MEDICATIONS Medication [...]
--- OUTSIDE RECORDS SUMMARY | 2019-04-09 01:56 | XMS REPORT | Continuity of Care Document ---
Author Organization Unknown Address Unknown Allergies Active Description Code Type Severity Reaction Onset Reported/Identified Relationship to Patient Clinical Status Yes acetaminophen [id number] Drug Allergy Unknown N/A 10/16/2009 Yes bupropion [id number] Drug Allergy Unknown N/A 10/16/2009 Yes cephalexin [id number] Drug Allergy Unknown N/A 10/16/2009 Yes codeine [id number] Drug Allergy Unknown N/A 10/16/2009 Yes Penicillins [id number] Drug Allergy Unknown N/A 10/16/2009 Yes sertraline [id number] Drug Allergy Unknown N/A 10/16/2009 Yes nicotine [id number] Drug Allergy Moderate HIVES, ITCHING, 05/30/2010 Yes morphine [id number] Drug Allergy Unknown N/A 11/20/2016 Medications There [...] THE LEFT UPPER BELLY (LUQ) 01/30/2009 PRO ROD BUSTER, LUPE B 401.1 ESSENTIAL HYPERTENSION BENIGN 01/30/2009 PRO ROD BUSTER, LUPE B 782.3 SOFT TISSUE SWELLING (NON-JOINT) [SX] 01/30/2009 PRO ROD BUSTER, LUPE B 789.02 ABDOMINAL PAIN IN THE [...] UPPER BELLY (LUQ) 01/30/2009 SAIMA LEO APRN 401.1 ESSENTIAL HYPERTENSION BENIGN 01/30/2009 FELIPA HUYNH, SAIMA R 782.3 SOFT TISSUE SWELLING (NON-JOINT) [SX] 01/30/2009 FELIPA FERNÁNDEZN, SAIMA R 789.02 ABDOMINAL PAIN IN THE LEFT UPPER BELLY (LUQ) 01/30/2009 FELIPA FERNÁNDEZN, SAIMA R 401.1 ESSENTIAL HYPERTENSION BENIGN 01/30/2009 FELIPA IMMIGRATION COORDINATOR, SAIMA R 782.3 SOFT TISSUE SWELLING (NON-JOINT) [SX] 01/30/2009 FLEIPA HUYNH, SAIMA R 789.02 ABDOMINAL PAIN IN THE LEFT UPPER BELLY (LUQ) 01/30/2009 [facility], [place] W 401.1 ESSENTIAL HYPERTENSION BENIGN 01/30/2009 [facility], [place] W 782.3 SOFT TISSUE SWELLING (NON-JOINT) [SX] 01/30/2009 [facility], [place] W 789.02 ABDOMINAL PAIN IN THE LEFT UPPER BELLY (LUQ) 01/30/2009 LUZ MARIA LEO APRNINA R 401.1 ESSENTIAL HYPERTENSION BENIGN 01/30/2009 FELIPA [...] HUYNH PRITESH 401.1 ESSENTIAL HYPERTENSION BENIGN 01/30/2009 MANJIT HUYNH PRITESH 782.3 SOFT TISSUE SWELLING (NON-JOINT) [SX] 01/30/2009 MANJITPRITESH RODRIGUEZ APRN 789.02 ABDOMINAL PAIN IN THE LEFT UPPER [...] 316 PF PSYCHIC FACTORS MED COND 02/07/2009 JUSTO HOROWITZ DO K 296.50 MO BIPOLAR I DEPRESSED UNSPECIFIED 02/07/2009 JUSTO HOROWITZ DO K 304.80 SA POLYSUB DEP 02/07/2009 HOROWITZ [...] PF PSYCHIC FACTORS MED COND 02/07/2009 PRO ROD BUSTER, LUPE B 296.50 MO BIPOLAR I DEPRESSED UNSPECIFIED 02/07/2009 PRO ROD BUSTER, LUPE B 304.80 SA POLYSUB DEP 02/07/2009 PRO ROD BUSTER, LUPE B 307.47 SI DYSSOMNIA NOS 02/07/2009 PRO ROD BUSTER, LUPE B 309.81 AN PTSD 02/07/2009 PRO ROD BUSTER, LUPE B 316 PF PSYCHIC FACTORS MED [...] JUSTO K 309.81 AN PTSD 02/07/2009 HOROWITZ DOJUSTO K 316 PF PSYCHIC FACTORS MED COND 02/07/2009 FELIPA IMMIGRATION COORDINATOR, SAIMA R 296.50 MO BIPOLAR I DEPRESSED UNSPECIFIED 02/07/2009 FELIPA IMMIGRATION COORDINATOR, SAIMA R 304.80 SA POLYSUB DEP 02/07/2009 FELIPA IMMIGRATION COORDINATOR, SAIMA R 307.47 SI DYSSOMNIA NOS 02/07/2009 FELIPA IMMIGRATION COORDINATOR, SAIMA R 309.81 AN PTSD 02/07/2009 FELIPA IMMIGRATION COORDINATOR, SAIMA R 316 PF PSYCHIC FACTORS MED COND 02/07/2009 FELIPA IMMIGRATION COORDINATOR, SAIMA R 296.50 MO BIPOLAR I DEPRESSED UNSPECIFIED 02/07/2009 FELIPA IMMIGRATION COORDINATOR, SAIMA R 304.80 SA POLYSUB DEP 02/07/2009 FELIPA IMMIGRATION COORDINATOR, SAIMA R 307.47 SI DYSSOMNIA NOS 02/07/2009 FELIPA IMMIGRATION COORDINATOR, SAMIA R 309.81 AN PTSD 02/07/2009 FELIPA IMMIGRATION COORDINATOR, SAIMA R 316 PF PSYCHIC FACTORS MED COND 02/07/2009 [facility] [place] W 296.50 MO BIPOLAR I DEPRESSED UNSPECIFIED 02/07/2009 [facility] MF, [place] W 304.80 SA POLYSUB DEP 02/07/2009 [facility], [place] W 307.47 SI DYSSOMNIA NOS 02/07/2009 [facility] [place] W 309.81 AN PTSD 02/07/2009 [facility] [place] W 316 PF PSYCHIC FACTORS MED COND 02/07/2009 FELIPA IMMIGRATION COORDINATOR, SAIMA R 296.50 MO BIPOLAR I DEPRESSED UNSPECIFIED 02/07/2009 FELIPA IMMIGRATION COORDINATOR, SAIMA R 304.80 SA POLYSUB DEP 02/07/2009 FELIPA IMMIGRATION COORDINATOR, SAIMA R 307.47 SI DYSSOMNIA NOS 02/07/2009 FELIPA IMMIGRATION COORDINATOR, SAIMA R 309.81 AN PTSD 02/07/2009 FELIPA IMMIGRATION COORDINATOR, SAIMA R 316 PF PSYCHIC FACTORS MED COND 02/07/2009 MADL IMMIGRATION COORDINATOR, ALEYDA L 296.50 MO BIPOLAR I DEPRESSED UNSPECIFIED 02/07/2009 MADL IMMIGRATION COORDINATOR, ALEYDA L 304.80 SA POLYSUB DEP 02/07/2009 MADL IMMIGRATION COORDINATOR, ALEYDA L 307.47 SI DYSSOMNIA NOS 02/07/2009 MADL IMMIGRATION COORDINATOR, ALEYDA L 309.81 AN PTSD 02/07/2009 MADL IMMIGRATION COORDINATOR, ALEYDA L 316 PF PSYCHIC FACTORS MED COND 02/07/2009 FELIPA IMMIGRATION COORDINATOR, SAIMA R 296.50 MO BIPOLAR I DEPRESSED UNSPECIFIED 02/07/2009 FELIPA IMMIGRATION COORDINATOR, SAIMA R 304.80 SA POLYSUB DEP 02/07/2009 FELIPA IMMIGRATION COORDINATOR, SAIMA R 307.47 SI DYSSOMNIA NOS 02/07/2009 FELIPA IMMIGRATION COORDINATOR, SAIMA R 309.81 AN PTSD 02/07/2009 FELIPA IMMIGRATION COORDINATOR, SAIMA R 316 PF PSYCHIC FACTORS MED COND 02/07/2009 MANJIT IMMIGRATION COORDINATOR, PRITESH 296.50 MO BIPOLAR I DEPRESSED UNSPECIFIED 02/07/2009 MANJIT IMMIGRATION COORDINATOR, PRITESH 304.80 SA POLYSUB DEP 02/07/2009 MANJIT IMMIGRATION COORDINATOR, PRITESH 307.47 SI DYSSOMNIA NOS 02/07/2009 MANJIT IMMIGRATION COORDINATOR, PRITESH 309.81 AN PTSD 02/07/2009 MANJIT IMMIGRATION COORDINATOR, PRITESH 316 PF PSYCHIC FACTORS MED COND 02/07/2009 FELIPA IMMIGRATION COORDINATOR, SAIMA R 296.50 MO BIPOLAR I DEPRESSED UNSPECIFIED 02/07/2009 FELIPA IMMIGRATION COORDINATOR, SAIMA R 304.80 SA POLYSUB DEP 02/07/2009 FELIPA IMMIGRATION COORDINATOR, SAIMA R 307.47 SI DYSSOMNIA NOS 02/07/2009 FELIPA IMMIGRATION COORDINATOR, SAIMA R 309.81 AN PTSD 02/07/2009 FELIPA IMMIGRATION COORDINATOR, SAIMA R 316 PF PSYCHIC FACTORS MED [...] PROBLEM WITH NECK AND TRUNK 03/12/2009 HOROWITZ SAHRA ABDALLAA K V48.5 SENSORY PROBLEM WITH NECK AND TRUNK 03/12/2009 PRO REED, LUPE Rosen V48.5 SENSORY PROBLEM WITH NECK AND TRUNK 03/12/2009 OHROWITZ DO, JUSTO K V48.5 SENSORY PROBLEM WITH NECK AND TRUNK 03/12/2009 HOROWITZ DO, JUSTO K V48.5 SENSORY PROBLEM WITH NECK AND TRUNK 03/12/2009 FELIPA IMMIGRATION COORDINATOR, SAIMA R V48.5 SENSORY PROBLEM WITH NECK AND TRUNK 03/12/2009 FELIPA IMMIGRATION COORDINATOR, SAIMA R V48.5 SENSORY PROBLEM WITH NECK AND TRUNK 03/12/2009 [facility], [place] W V48.5 SENSORY PROBLEM WITH NECK AND TRUNK 03/12/2009 FELIPA IMMIGRATION COORDINATOR, SAIMA R V48.5 SENSORY PROBLEM WITH NECK AND TRUNK 03/12/2009 MADL IMMIGRATION COORDINATOR, ALEYDA L V48.5 SENSORY PROBLEM WITH NECK AND TRUNK 03/12/2009 FELIPA IMMIGRATION COORDINATOR, SAIMA R V48.5 SENSORY PROBLEM WITH NECK AND TRUNK 03/12/2009 MANJIT IMMIGRATION COORDINATOR, PRITESH V48.5 SENSORY PROBLEM WITH NECK AND TRUNK 03/12/2009 FELIPA IMMIGRATION COORDINATOR, SAIMA R V48.5 SENSORY PROBLEM WITH NECK [...] DO, JUSTO K 625.9 pelvic pain 03/19/2009 HOORWITZ DO, JUSTO K V72.3 GYNECOLOGICAL EXAMINATION 03/19/2009 LUPE MATS LCPC 625.9 pelvic pain 03/19/2009 LUPE MAST LCPC V72.3 GYNECOLOGICAL EXAMINATION 03/19/2009 HOROWITZ DO, JUSTO K 625.9 pelvic pain 03/19/2009 HOROWITZ DO, JUSTO K V72.3 GYNECOLOGICAL EXAMINATION 03/19/2009 HOROWITZ DO, JUSTO K 625.9 pelvic pain 03/19/2009 HOROWITZ DO, JUSTO K V72.3 GYNECOLOGICAL EXAMINATION 03/19/2009 FELIPA IMMIGRATION COORDINATOR, SAIMA R 625.9 pelvic pain 03/19/2009 FELIPA IMMIGRATION COORDINATOR, SAIMA R V72.3 GYNECOLOGICAL EXAMINATION 03/19/2009 FELIPA IMMIGRATION COORDINATOR, SAIMA R 625.9 pelvic pain 03/19/2009 FELIPA IMMIGRATION COORDINATOR, SAIMA R V72.3 GYNECOLOGICAL EXAMINATION 03/19/2009 [facility], [place] W 625.9 pelvic pain 03/19/2009 [facility], [place] W V72.3 GYNECOLOGICAL EXAMINATION 03/19/2009 FLEIPA IMMIGRATION COORDINATOR, SAIMA R 625.9 pelvic pain 03/19/2009 FELIPA IMMIGRATION COORDINATOR, SAIMA R V72.3 GYNECOLOGICAL EXAMINATION 03/19/2009 MADL IMMIGRATION COORDINATOR, ALEYDA L 625.9 pelvic pain 03/19/2009 MADL IMMIGRATION COORDINATOR, ALEYDA L V72.3 GYNECOLOGICAL EXAMINATION 03/19/2009 FELIPA IMMIGRATION COORDINATOR, SAIMA R 625.9 pelvic pain 03/19/2009 FELIPA IMMIGRATION COORDINATOR, SAIMA R V72.3 GYNECOLOGICAL EXAMINATION 03/19/2009 MANJIT IMMIGRATION COORDINATOR, PRITESH 625.9 pelvic pain 03/19/2009 MANJIT IMMIGRATION COORDINATOR, PRITESH V72.3 GYNECOLOGICAL EXAMINATION 03/19/2009 FELIPA IMMIGRATION COORDINATOR, SAIMA R 625.9 pelvic pain 03/19/2009 FELIPA IMMIGRATION COORDINATOR, SAIMA R V72.3 GYNECOLOGICAL EXAMINATION 04/23/2009 AQUILES [...] GONZALES MD 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 04/23/2009 HOROWITZ DO [...] K 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 04/23/2009 PRO ROD BUSTER, LUPE B 296.54 MO BIPOLAR I DEPRESSED SEVERE WITH PSYCHOTIC BEHAVIOR 04/23/2009 PRO ROD BUSTER, LUPE B 305.20 SA CANNABIS ABUSE 04/23/2009 PRO ROD BUSTER, LUPE B 305.60 SA COCAINE ABUSE 04/23/2009 PRO ROD BUSTER, LUPE B 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 04/23/2009 [...] K 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 04/23/2009 FELIPA IMMIGRATION COORDINATOR, SAIMA R 296.54 MO BIPOLAR I DEPRESSED SEVERE WITH PSYCHOTIC BEHAVIOR 04/23/2009 FELIPA IMMIGRATION COORDINATOR, SAIMA R 305.20 SA CANNABIS ABUSE 04/23/2009 FELIPA IMMIGRATION COORDINATOR, SAIMA R 305.60 SA COCAINE ABUSE 04/23/2009 FELIPA IMMIGRATION COORDINATOR, SAIMA R 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 04/23/2009 FELIPA IMMIGRATION COORDINATOR, SAIMA R 296.54 MO BIPOLAR I DEPRESSED SEVERE WITH PSYCHOTIC BEHAVIOR 04/23/2009 FELIPA IMMIGRATION COORDINATOR, SAIMA R 305.20 SA CANNABIS ABUSE 04/23/2009 FELIPA IMMIGRATION COORDINATOR, SAIMA R 305.60 SA COCAINE ABUSE 04/23/2009 FELIPA IMMIGRATION COORDINATOR, SAIMA R 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 04/23/2009 [facility], [place] W 296.54 MO BIPOLAR I DEPRESSED SEVERE WITH PSYCHOTIC BEHAVIOR 04/23/2009 [facility], [place] W 305.20 SA CANNABIS ABUSE 04/23/2009 [facility], [place] W 305.60 SA COCAINE ABUSE 04/23/2009 [facility], [place] W 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 04/23/2009 FELIPA IMMIGRATION COORDINATOR, SAIMA R 296.54 MO BIPOLAR I DEPRESSED SEVERE WITH PSYCHOTIC BEHAVIOR 04/23/2009 FELIPA IMMIGRATION COORDINATOR, SAIMA R 305.20 SA CANNABIS ABUSE 04/23/2009 FELIPA IMMIGRATION COORDINATOR, SAIMA R 305.60 SA COCAINE ABUSE 04/23/2009 FELIPA IMMIGRATION COORDINATOR, SAIMA R 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 04/23/2009 MADL IMMIGRATION COORDINATOR, ALEYDA L 296.54 MO BIPOLAR I DEPRESSED SEVERE WITH PSYCHOTIC BEHAVIOR 04/23/2009 MADL IMMIGRATION COORDINATOR, ALEYDA L 305.20 SA CANNABIS ABUSE 04/23/2009 MADL IMMIGRATION COORDINATOR, ALEYDA L 305.60 SA COCAINE ABUSE 04/23/2009 MADL IMMIGRATION COORDINATOR, ALEYDA L 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 04/23/2009 FELIPA IMMIGRATION COORDINATOR, SAIMA R 296.54 MO BIPOLAR I DEPRESSED SEVERE WITH PSYCHOTIC BEHAVIOR 04/23/2009 FELIPA IMMIGRATION COORDINATOR, SAIMA R 305.20 SA CANNABIS ABUSE 04/23/2009 FELIPA IMMIGRATION COORDINATOR, SAIMA R 305.60 SA COCAINE ABUSE 04/23/2009 FELIPA IMMIGRATION COORDINATOR, SAIMA R 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 04/23/2009 MANJIT IMMIGRATION COORDINATOR, PRITESH 296.54 MO BIPOLAR I DEPRESSED SEVERE WITH PSYCHOTIC BEHAVIOR 04/23/2009 MANJIT IMMIGRATION COORDINATOR, PRITESH 305.20 SA CANNABIS ABUSE 04/23/2009 MANJIT IMMIGRATION COORDINATOR, PRITESH 305.60 SA COCAINE ABUSE 04/23/2009 MANJIT IMMIGRATION COORDINATOR, PRITESH 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 04/23/2009 FELIPA IMMIGRATION COORDINATOR, SAIMA R 296.54 MO BIPOLAR I DEPRESSED SEVERE WITH PSYCHOTIC BEHAVIOR 04/23/2009 FELIPA IMMIGRATION COORDINATOR, SAIMA R 305.20 SA CANNABIS ABUSE 04/23/2009 FELIPA IMMIGRATION COORDINATOR, SAMIA R 305.60 SA COCAINE ABUSE 04/23/2009 FELIPA IMMIGRATION COORDINATOR, SAIMA R 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 10/16/2009 [...] 789.61 ABDOMEN TENDERNESS DIRECT RUQ 10/16/2009 FELIPA IMMIGRATION COORDINATOR, SAIMA R 789.61 ABDOMEN TENDERNESS DIRECT RUQ 10/16/2009 FELIPA IMMIGRATION COORDINATOR, SAIMA R 789.61 ABDOMEN TENDERNESS DIRECT RUQ 10/16/2009 [facility] FIELDS, [place] Gregory 789.61 ABDOMEN TENDERNESS DIRECT RUQ 10/16/2009 FELIPA IMMIGRATION COORDINATOR, SAIMA R 789.61 ABDOMEN TENDERNESS DIRECT RUQ 10/16/2009 TIANNA HUYNH, ALEYDA Bennett 789.61 ABDOMEN TENDERNESS DIRECT RUQ 10/16/2009 FELIPA IMMIGRATION COORDINATOR, SAIMA R 789.61 ABDOMEN TENDERNESS DIRECT RUQ 10/16/2009 PRITESH SARAVIA APRN 789.61 ABDOMEN TENDERNESS DIRECT RUQ 10/16/2009 FELIPA IMMIGRATION COORDINATOR, SAIMA R 789.61 ABDOMEN TENDERNESS DIRECT RUQ 10/31/2009 AQUILES OWEN APRN 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 I MIXED UNSPECIFIED 10/31/2009 AQUILES OWEN APRN 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 I MIXED UNSPECIFIED 10/31/2009 AQUILES OWEN APRN 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 I MIXED UNSPECIFIED 10/31/2009 ROSINA GONZALES MD 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 I MIXED UNSPECIFIED 10/31/2009 HOROWITZ DO, JUSTO K 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 I MIXED UNSPECIFIED 10/31/2009 CARLOS MANUEL ABDALLA JUSTO K 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 I MIXED UNSPECIFIED 10/31/2009 HOROWITZ DO, JUSTO K 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 I MIXED UNSPECIFIED 10/31/2009 [facility], LUPE B 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 I MIXED UNSPECIFIED 10/31/2009 HOROWITZ DO, JUSTO K 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 I MIXED UNSPECIFIED 10/31/2009 HOROWITZ DO, JUSTO K 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 I MIXED UNSPECIFIED 10/31/2009 FELIPA IMMIGRATION COORDINATOR, SAIMA R 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 I MIXED UNSPECIFIED 10/31/2009 FELIPA IMMIGRATION COORDINATOR, SAIMA R 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 I MIXED UNSPECIFIED 10/31/2009 [facility] [place] Gregory 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 I MIXED UNSPECIFIED 10/31/2009 FELIPA IMMIGRATION COORDINATOR, SAIMA R 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 I MIXED UNSPECIFIED 10/31/2009 ALEYDA WYNN APRN 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 I MIXED UNSPECIFIED 10/31/2009 FELIPA IMMIGRATION COORDINATOR, SAIMA R 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 I MIXED UNSPECIFIED 10/31/2009 PRITESH SARAVIA APRN 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 I MIXED UNSPECIFIED 10/31/2009 FELIPA IMMIGRATION COORDINATOR, SAIMA R 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 I MIXED UNSPECIFIED 02/26/2010 AQUILES OWEN APRN T 461.0 ACUTE MAXILLARY SINUSITIS 02/26/2010 BRAYDEN FERNÁNDEZN, AQUILES T 692.6 CONTACT DERMATITIS AND OTHER ECZEMA, DUE TO PLANTS [EXCEPT FOOD] 02/26/2010 BRAYDEN FERNÁNDEZN, AQUILES T 461.0 ACUTE MAXILLARY SINUSITIS 02/26/2010 BRAYDEN FERNÁNDEZN, AQUILES T 692.6 CONTACT DERMATITIS AND OTHER ECZEMA, DUE TO PLANTS [EXCEPT FOOD] 02/26/2010 BRAYDEN FERNÁNDEZN, AQUILES T 461.0 ACUTE MAXILLARY SINUSITIS 02/26/2010 [...] DUE TO PLANTS [EXCEPT FOOD] 02/26/2010 PRO ROD BUSTER, LUPE B 461.0 ACUTE MAXILLARY SINUSITIS 02/26/2010 PRO ROD BUSTER, LUPE B 692.6 CONTACT DERMATITIS AND OTHER [...] DUE TO PLANTS [EXCEPT FOOD] 02/26/2010 FELIPA IMMIGRATION COORDINATOR, SAIMA R 461.0 ACUTE MAXILLARY SINUSITIS 02/26/2010 FELIPA IMMIGRATION COORDINATOR, SAIMA R 692.6 CONTACT DERMATITIS AND OTHER ECZEMA, DUE TO PLANTS [EXCEPT FOOD] 02/26/2010 FELIPA IMMIGRATION COORDINATOR, SAIMA R 461.0 ACUTE MAXILLARY SINUSITIS 02/26/2010 FELIPA IMMIGRATION COORDINATOR, SAIMA R 692.6 CONTACT DERMATITIS AND OTHER ECZEMA, DUE TO PLANTS [EXCEPT FOOD] 02/26/2010 [facility] LCM[facility], [place] W 461.0 ACUTE MAXILLARY SINUSITIS 02/26/2010 [facility]Y LCMF, [place] W 692.6 CONTACT DERMATITIS AND OTHER ECZEMA, DUE TO PLANTS [EXCEPT FOOD] 02/26/2010 FELIPA IMMIGRATION COORDINATOR, SAIMA R 461.0 ACUTE MAXILLARY SINUSITIS 02/26/2010 FELIPA IMMIGRATION COORDINATOR, SAIMA R 692.6 CONTACT DERMATITIS AND OTHER ECZEMA, DUE TO PLANTS [EXCEPT FOOD] 02/26/2010 MADL IMMIGRATION COORDINATOR, ALEYDA L 461.0 ACUTE MAXILLARY SINUSITIS 02/26/2010 MADL IMMIGRATION COORDINATOR, ALEYDA L 692.6 CONTACT DERMATITIS AND OTHER ECZEMA, DUE TO PLANTS [EXCEPT FOOD] 02/26/2010 FELIPA IMMIGRATION COORDINATOR, SAIMA R 461.0 ACUTE MAXILLARY SINUSITIS 02/26/2010 FELIPA IMMIGRATION COORDINATOR, SAIMA R 692.6 CONTACT DERMATITIS AND OTHER ECZEMA, DUE TO PLANTS [EXCEPT FOOD] 02/26/2010 MANJIT HUYNH PRITESH 461.0 ACUTE MAXILLARY SINUSITIS 02/26/2010 MANJIT IMMIGRATION COORDINATOR, PRITESH 692.6 CONTACT DERMATITIS AND OTHER ECZEMA, DUE TO PLANTS [EXCEPT FOOD] 02/26/2010 FELIPA FERNÁNDEZN, SAIMA R 461.0 ACUTE MAXILLARY SINUSITIS 02/26/2010 FELIPA FERNÁNDEZN, SAIMA R 692.6 CONTACT DERMATITIS AND OTHER [...] OTHER CHEST PAIN 03/26/2010 AQUILES OWEN APRN T 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, TOBACCO USE DISORDER 03/26/2010 AQUILES OWEN APRN T 530.81 ESOPHAGEAL REFLUX 03/26/2010 AQUILES OWEN APRN 719.46 PAIN IN JOINT, LOWER LEG 03/26/2010 AQUILES OWEN APRN 786.59 OTHER CHEST PAIN 03/26/2010 ROSINA GONZALES [...] 719.46 PAIN IN JOINT, LOWER LEG 03/26/2010 LUPE MAST LCPC B 786.59 OTHER CHEST PAIN 03/26/2010 HOROWITZ DO, [...] K 786.59 OTHER CHEST PAIN 03/26/2010 FELIPA IMMIGRATION COORDINATOR, SAIMA R 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, TOBACCO USE DISORDER 03/26/2010 FELIPA IMMIGRATION COORDINATOR, SAIMA R 530.81 ESOPHAGEAL REFLUX 03/26/2010 FELIPA FERNÁNDEZN, SAIMA R 719.46 PAIN IN JOINT, LOWER LEG 03/26/2010 FELIPA FERNÁNDEZN, SAIMA R 786.59 OTHER CHEST PAIN 03/26/2010 FELIPA IMMIGRATION COORDINATOR, SAIMA R 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, TOBACCO USE DISORDER 03/26/2010 FELIPA IMMIGRATION COORDINATOR, SAIMA R 530.81 ESOPHAGEAL REFLUX 03/26/2010 FELIPA IMMIGRATION COORDINATOR, SAIMA R 719.46 PAIN IN JOINT, LOWER LEG 03/26/2010 FELIPA IMMIGRATION COORDINATOR, SAIMA R 786.59 OTHER CHEST PAIN 03/26/2010 [facility] [place] W 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, TOBACCO USE DISORDER 03/26/2010 [facility], [place] W 530.81 ESOPHAGEAL REFLUX 03/26/2010 [facility] LCMF, [place] W 719.46 PAIN IN JOINT, LOWER LEG 03/26/2010 [facility] MF, [place] W 786.59 OTHER CHEST PAIN 03/26/2010 FELIPA FERNÁNDEZN, SAIMA R 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, TOBACCO USE DISORDER 03/26/2010 FELIPA IMMIGRATION COORDINATOR, SAIMA R 530.81 ESOPHAGEAL REFLUX 03/26/2010 FELIPA IMMIGRATION COORDINATOR, SAIMA R 719.46 PAIN IN JOINT, LOWER LEG 03/26/2010 FELIPA FERNÁNDEZN, SAIMA R 786.59 OTHER CHEST PAIN 03/26/2010 MADL IMMIGRATION COORDINATOR, ALEYDA L 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, TOBACCO USE DISORDER 03/26/2010 MADL IMMIGRATION COORDINATOR, ALEYDA L 530.81 ESOPHAGEAL REFLUX 03/26/2010 MADL IMMIGRATION COORDINATOR, ALEYDA L 719.46 PAIN IN JOINT, LOWER LEG 03/26/2010 MADL IMMIGRATION COORDINATOR, ALEYDA L 786.59 OTHER CHEST PAIN 03/26/2010 FELIPA IMMIGRATION COORDINATOR, SAIMA R 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, TOBACCO USE DISORDER 03/26/2010 FELIPA IMMIGRATION COORDINATOR, SAIMA R 530.81 ESOPHAGEAL REFLUX 03/26/2010 FELIPA IMMIGRATION COORDINATOR, SAIMA R 719.46 PAIN IN JOINT, LOWER LEG 03/26/2010 FELIPA IMMIGRATION COORDINATOR, SAIMA R 786.59 OTHER CHEST PAIN 03/26/2010 MANJIT IMMIGRATION COORDINATOR, PRITESH 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, TOBACCO USE DISORDER 03/26/2010 MANJIT IMMIGRATION COORDINATOR, PRITESH 530.81 ESOPHAGEAL REFLUX 03/26/2010 MANJIT IMMIGRATION COORDINATOR, PRITESH 719.46 PAIN IN JOINT, LOWER LEG 03/26/2010 MANJIT IMMIGRATION COORDINATOR, PRITESH 786.59 OTHER CHEST PAIN 03/26/2010 FELIPA IMMIGRATION COORDINATOR, SAIMA R 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, TOBACCO USE DISORDER 03/26/2010 FELIPA IMMIGRATION COORDINATOR, SAIMA R 530.81 ESOPHAGEAL REFLUX 03/26/2010 FELIPA IMMIGRATION COORDINATOR, SAIMA R 719.46 PAIN IN JOINT, LOWER LEG 03/26/2010 FELIPA IMMIGRATION COORDINATOR, SAIMA R 786.59 OTHER CHEST PAIN 04/16/2010 [...] UNSPECIFIED NONINFECTIOUS GASTROENTERITIS AND COLITIS 04/16/2010 [facility], LUPE B 558.9 OTHER AND UNSPECIFIED NONINFECTIOUS GASTROENTERITIS AND COLITIS 04/16/2010 HOROWITZ DO, JUSTO K 558.9 OTHER AND UNSPECIFIED NONINFECTIOUS GASTROENTERITIS AND COLITIS 04/16/2010 HOROWITZ DO, JUSTO K 558.9 OTHER AND UNSPECIFIED NONINFECTIOUS GASTROENTERITIS AND COLITIS 04/16/2010 FELIPA IMMIGRATION COORDINATOR, SAIMA R 558.9 OTHER AND UNSPECIFIED NONINFECTIOUS GASTROENTERITIS AND COLITIS 04/16/2010 FELIPA IMMIGRATION COORDINATOR, SAIMA R 558.9 OTHER AND UNSPECIFIED NONINFECTIOUS GASTROENTERITIS AND COLITIS 04/16/2010 [facility] [place] W 558.9 OTHER AND UNSPECIFIED NONINFECTIOUS GASTROENTERITIS AND COLITIS 04/16/2010 FELIPA IMMIGRATION COORDINATOR, SAIMA R 558.9 OTHER AND UNSPECIFIED NONINFECTIOUS GASTROENTERITIS AND COLITIS 04/16/2010 TIANNA IMMIGRATION COORDINATOR, ALEYDA Bennett 558.9 OTHER AND UNSPECIFIED NONINFECTIOUS GASTROENTERITIS AND COLITIS 04/16/2010 FELIPA IMMIGRATION COORDINATOR, SAIMA R 558.9 OTHER AND UNSPECIFIED NONINFECTIOUS GASTROENTERITIS AND COLITIS 04/16/2010 MANJIT IMMIGRATION COORDINATOR, PRITESH 558.9 OTHER AND UNSPECIFIED NONINFECTIOUS GASTROENTERITIS AND COLITIS 04/16/2010 FELIPA IMMIGRATION COORDINATOR, SAIMA R 558.9 OTHER AND UNSPECIFIED NONINFECTIOUS GASTROENTERITIS AND COLITIS 05/22/2010 AQUILES OWEN APRN 49Alexander CHRONIC OBSTRUCTIVE PULMONARY DISEASE 05/22/2010 AQUILES OWEN APRN 786.05 SHORTNESS OF BREATH 05/22/2010 AQUILES OWEN APRN 49Alexander CHRONIC OBSTRUCTIVE PULMONARY DISEASE 05/22/2010 AQUILES OWEN APRN 786.05 SHORTNESS OF BREATH 05/22/2010 AQUILES OWEN APRN 496 CHRONIC OBSTRUCTIVE PULMONARY DISEASE 05/22/2010 AQUILES OWEN APRN 786.05 SHORTNESS OF BREATH 05/22/2010 ROSINA GONZALES MD CHRONIC OBSTRUCTIVE PULMONARY DISEASE 05/22/2010 ROSINA GONZALES MD 786.05 SHORTNESS OF BREATH 05/22/2010 CARLOS MANUEL DO JUSTO K 496 CHRONIC OBSTRUCTIVE PULMONARY DISEASE 05/22/2010 HOROWITZ DO, JUSTO K 786.05 SHORTNESS OF BREATH 05/22/2010 HOROWITZ DO JUSTO K 496 CHRONIC OBSTRUCTIVE PULMONARY DISEASE 05/22/2010 HOROWITZ DO, JUSTO K 786.05 SHORTNESS OF BREATH 05/22/2010 HOROWITZ DO, JUSTO K 496 CHRONIC OBSTRUCTIVE PULMONARY DISEASE 05/22/2010 HOROWITZ DO, JUSTO K 786.05 SHORTNESS OF BREATH 05/22/2010 PRO ROD BUSTER, LUPE B 496 CHRONIC OBSTRUCTIVE PULMONARY DISEASE 05/22/2010 PRO ROD BUSTER, LUPE B 786.05 SHORTNESS OF BREATH 05/22/2010 HOROWITZ DO, JUSTO K 496 CHRONIC OBSTRUCTIVE PULMONARY DISEASE 05/22/2010 HOROWITZ DO, JUSTO K 786.05 SHORTNESS OF BREATH 05/22/2010 HOROWITZ DO, JUSTO K 496 CHRONIC OBSTRUCTIVE PULMONARY DISEASE 05/22/2010 HOROWITZ DO, JUSTO K 786.05 SHORTNESS OF BREATH 05/22/2010 FELIPA FERNÁNDEZN, SAIMA R 496 CHRONIC OBSTRUCTIVE PULMONARY DISEASE 05/22/2010 FELIPA FERNÁNDEZN, SAIMA R 786.05 SHORTNESS OF BREATH 05/22/2010 FELIPA IMMIGRATION COORDINATOR, SAIMA R 496 CHRONIC OBSTRUCTIVE PULMONARY DISEASE 05/22/2010 FELIPA HUYNH, SAIMA R 786.05 SHORTNESS OF BREATH 05/22/2010 [facility] [place] W 496 CHRONIC OBSTRUCTIVE PULMONARY DISEASE 05/22/2010 [facility], [place] W 786.05 SHORTNESS OF BREATH 05/22/2010 FELIPA FERNÁNDEZN, SAIMA R 496 CHRONIC OBSTRUCTIVE PULMONARY DISEASE 05/22/2010 FELIPA IMMIGRATION COORDINATOR, SAIMA R 786.05 SHORTNESS OF BREATH 05/22/2010 MADL IMMIGRATION COORDINATOR, ALEYDA L 496 CHRONIC OBSTRUCTIVE PULMONARY DISEASE 05/22/2010 MADDonald IMMIGRATION COORDINATOR, ALEYDA L 786.05 SHORTNESS OF BREATH 05/22/2010 FELIPA IMMIGRATION COORDINATOR, SAIMA R 496 CHRONIC OBSTRUCTIVE PULMONARY DISEASE 05/22/2010 FELIPA FERNÁNDEZN, SAIMA R 786.05 SHORTNESS OF BREATH 05/22/2010 MANJIT IMMIGRATION COORDINATOR, PRITESH 496 CHRONIC OBSTRUCTIVE PULMONARY DISEASE 05/22/2010 MANJIT HUYNH PRITESH 786.05 SHORTNESS OF BREATH 05/22/2010 FELIPA HUYNH, SAIMA R 496 CHRONIC AIRWAY OBSTRUCTION NOT ELSEWHERE CLASSIFIED 05/22/2010 FELIPA HUYNH, SAIMA R 786.05 SHORTNESS OF BREATH 05/29/2010 AQUILES OWEN APRN 414.01 CAD 05/29/2010 AQUILES OWEN APRN 414.01 CAD 05/29/2010 AQUILES OWEN APRN 414.01 CAD 05/29/2010 ROSINA GONZALES MD 414.01 CAD 05/29/2010 HOROWITZ DO, JUSTO K 414.01 CAD 05/29/2010 HOROWITZ DO, JUSTO K 414.01 CAD 05/29/2010 HOROWITZ DO, JUSTO K 414.01 CAD 05/29/2010 PRO [facility]SON[facility], LUPE B 414.01 CAD 05/29/2010 HOROWITZ DO, JUSTO K 414.01 CAD 05/29/2010 HOROWITZ DO, JUSTO K 414.01 CAD 05/29/2010 FELIPA IMMIGRATION COORDINATOR, SAIMA R 414.01 CAD 05/29/2010 FELIPA IMMIGRATION COORDINATOR, SAIMA R 414.01 CAD 05/29/2010 [facility] [place] W 414.01 CAD 05/29/2010 FELIPA IMMIGRATION COORDINATOR, SAIMA R 414.01 CAD 05/29/2010 MADDonald IMMIGRATION COORDINATOR, ALEYDA Bennett 414.01 CAD 05/29/2010 FELIPA IMMIGRATION COORDINATOR, SAIMA R 414.01 CAD 05/29/2010 MANJIT IMMIGRATION COORDINATOR, PRITESH 414.01 CAD 05/29/2010 FELIPA IMMIGRATION COORDINATOR, SAIMA R 414.01 CAD 05/31/2010 Ot 786.05 [...] GONZALES MD 465.9 UPPER RESPIRATORY INFECTION 07/16/2010 CHRISTIAN SPENCER, ROSINA 701.9 UNSPECIFIED HYPERTROPHIC AND ATROPHIC CONDITIONS OF [...] AND ATROPHIC CONDITIONS OF SKIN 07/16/2010 PRO ROD BUSTER, LUPE B 216.9 BENIGN NEOPLASM OF SKIN SITE UNSPECIFIED 07/16/2010 PRO ROD BUSTER, LUPE B 465.9 UPPER RESPIRATORY INFECTION 07/16/2010 PRO ROD BUSTER, LUPE B 701.9 UNSPECIFIED HYPERTROPHIC AND ATROPHIC [...] AND ATROPHIC CONDITIONS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 PALPITATIONS 11/20/2016 CHRISTY DOTY MD Ot I10 ESSENTIAL (PRIMARY) HYPERTENSION 11/20/2016 CHRISTY DOTY MD Ot J44.9 CHRONIC OBSTRUCTIVE PULMONARY DISEASE, U 11/20/2016 CHRISTY DOTY MD Ot R55 SYNCOPE AND COLLAPSE 11/20/2016 CHRISTY DOTY MD Ot Z79.899 OTHER EYEGLASS LENS CUTTER (CURRENT) DRUG THERAPY 11/21/2016 CHRISTY DOTY MD Ot I10 ESSENTIAL (PRIMARY) HYPERTENSION 11/21/2016 CHRISTY DOTY MD Ot J44.9 CHRONIC OBSTRUCTIVE PULMONARY DISEASE, U 11/21/2016 CHRISTY DOTY MD Ot R55 SYNCOPE AND COLLAPSE 11/21/2016 CHRISTY DOTY MD Ot Z79.899 OTHER PRISON (CURRENT) DRUG THERAPY 12/05/2016 CHRISTY DOTY MD Ot I10 ESSENTIAL (PRIMARY) HYPERTENSION 12/05/2016 CHRISTY DOTY MD Ot J44.9 CHRONIC OBSTRUCTIVE PULMONARY DISEASE, U 12/05/2016 CHRISTY DOTY MD Ot R55 SYNCOPE AND COLLAPSE 12/05/2016 CHRISTY DOTY MD Ot Z79.899 OTHER EYEGLASS LENS CUTTER (CURRENT) DRUG THERAPY 02/25/2017 Ot 611.72 LUMP OR MASS IN BREAST 02/25/2017 LORIE SPENCER, BARTOLO Gregory Ot V76.12 OTH SCREEN MAMMO-MALIGN NEOPLASM OF [place] 02/25/2017 MICHAEL ALMEIDA FINANCIAL SERVICES DIRECTOR Ot 922.1 CONTUSION OF CHEST WALL 02/25/2017 MICHAEL ALMEIDA FINANCIAL SERVICES DIRECTOR Ot E008.1 ACTIVITIES INVOLVING WRESTLING 02/25/2017 MICHAEL ALMEIDA FINANCIAL SERVICES DIRECTOR Ot E928.8 ACCIDENT NEC 02/25/2017 Ot 723.1 [...] VENEGAS Ot I25.10 ATHSCL HEART DISEASE OF [place] CORONARY 02/25/2017 KIAH VENEGAS Ot J44.9 CHRONIC OBSTRUCTIVE PULMONARY DISEASE, U 02/25/2017 KIAH VENEGAS Ot R00.2 PALPITATIONS 02/25/2017 KIAH VENEGAS Ot F41.8 OTHER SPECIFIED ANXIETY DISORDERS 02/25/2017 KIAH VENEGAS Ot I25.10 ATHSCL HEART DISEASE OF [place] CORONARY 02/25/2017 KIAH VENEGAS Ot J44.9 CHRONIC OBSTRUCTIVE PULMONARY DISEASE, U 02/25/2017 KIAH VENEGAS Ot R00.2 PALPITATIONS 02/25/2017 KIAH VENEGAS Ot E78.2 MIXED HYPERLIPIDEMIA 02/25/2017 KIAH VENEGAS Ot E78.2 MIXED HYPERLIPIDEMIA 02/25/2017 KIAH VENEGAS Ot I10 ESSENTIAL (PRIMARY) HYPERTENSION 02/25/2017 KIAH VENEGAS Ot I25.10 ATHSCL HEART DISEASE OF [place] CORONARY 02/27/2017 MICHAEL ALMEIDA FINANCIAL SERVICES DIRECTOR Ot Z12.31 ENCNTR SCREEN MAMMOGRAM FOR MALIGNANT NE 03/10/2017 MICHAEL ALMEIDA FINANCIAL SERVICES DIRECTOR Ot Z12.31 ENCNTR SCREEN MAMMOGRAM FOR MALIGNANT NE 07/23/2017 Ot 611.72 LUMP OR MASS IN BREAST 07/23/2017 LORIE SPENCER, BARTOLO Gregory Ot V76.12 OTH SCREEN MAMMO-MALIGN NEOPLASM OF [place] 07/23/2017 MICHAEL ALMEIDA FINANCIAL SERVICES DIRECTOR Ot 922.1 CONTUSION OF CHEST WALL 07/23/2017 MICHAEL ALMEIDA FINANCIAL SERVICES DIRECTOR Ot E008.1 ACTIVITIES INVOLVING WRESTLING 07/23/2017 MICHAEL ALMEIDA FINANCIAL SERVICES DIRECTOR Ot E928.8 ACCIDENT NEC 07/23/2017 Ot 723.1 CERVICALGIA 07/23/2017 Ot 721.0 CERVICAL SPONDYLOSIS 07/23/2017 ERROL MARCOS MD Ot 401.9 HYPERTENSION NOS 07/23/2017 ERROL MARCOS MD Ot 414.9 CHR ISCHEMIC HRT DIS NOS 07/23/2017 ERROL MARCOS MD Ot 496 CHR AIRWAY OBSTRUCT NEC 07/23/2017 ERROL MARCOS MD Ot 785.1 PALPITATIONS 07/23/2017 KATIANA SPENCER, NELSY Boyd Ot M25.512 PAIN IN LEFT SHOULDER 07/23/2017 KIAH VENEGAS Ot F41.8 OTHER SPECIFIED ANXIETY DISORDERS 07/23/2017 KIAH VENEGAS Ot I25.10 ATHSCL HEART DISEASE OF [place] CORONARY 07/23/2017 KIAH VENEGAS Ot J44.9 CHRONIC OBSTRUCTIVE PULMONARY DISEASE, U 07/23/2017 KIAH VENEGAS Ot R00.2 PALPITATIONS 07/23/2017 KIAH VENEGAS Ot F41.8 OTHER SPECIFIED ANXIETY DISORDERS 07/23/2017 KIAH VENEGAS Ot I25.10 ATHSCL HEART DISEASE OF [place] CORONARY 07/23/2017 KIAH VENEGAS Ot J44.9 CHRONIC OBSTRUCTIVE PULMONARY DISEASE, U 07/23/2017 KIAH VENEGAS Ot R00.2 PALPITATIONS 07/23/2017 KIAH VENEGAS Ot E78.2 MIXED HYPERLIPIDEMIA 07/23/2017 KIAH VENEGAS Ot E78.2 MIXED HYPERLIPIDEMIA 07/23/2017 KIAH VENEGAS Ot I10 ESSENTIAL (PRIMARY) HYPERTENSION 07/23/2017 KIAH VENEGAS Ot I25.10 ATHSCL HEART DISEASE OF [place] CORONARY 07/23/2017 MICHAEL ALMEIDA Ot Z12.31 ENCNTR SCREEN MAMMOGRAM FOR MALIGNANT NE 07/23/2017 TAMEKA WILLIAM Ot B19.20 UNSPECIFIED VIRAL HEPATITIS C WITHOUT HE 07/23/2017 TAMEKA WILLIAM Ot F32.9 MAJOR DEPRESSIVE DISORDER, SINGLE EPISOD 07/23/2017 TAMEKA WILLIAM Ot F41.9 ANXIETY DISORDER, UNSPECIFIED 07/23/2017 TAMEKA WILLIAM Ot J44.9 CHRONIC OBSTRUCTIVE PULMONARY DISEASE, U 07/23/2017 TAMEKA WILLIAM Ot K21.9 GASTRO- ESOPHAGEAL REFLUX DISEASE WITHOUT 07/23/2017 TAMEKA WILLIAM Ot [...] OF COMP OF PREG, CHLDBR 07/23/2017 TAMEKA WILLAIM Ot Z87.891 PERSONAL HISTORY OF NICOTINE DEPENDENCE 07/23/2017 TAMEKA WILLIAM Ot 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 ABSENCE OF BOTH CERVIX AND UTER 07/23/2017 TAMEKA WILLIAM Ot Z98.51 TUBAL LIGATION STATUS 12/07/2017 JUSTIN MADRIGAL APRN Ot F32.9 MAJOR DEPRESSIVE DISORDER, SINGLE EPISOD 12/07/2017 JUSTIN MADRIGAL APRN Ot F41.9 ANXIETY DISORDER, UNSPECIFIED 12/07/2017 JUSTIN MADRIGAL APRN Ot I10 ESSENTIAL (PRIMARY) HYPERTENSION 12/07/2017 JUSTIN MADRIGAL APRN Ot I16.1 HYPERTENSIVE EMERGENCY 12/07/2017 JUSTIN MADRIGAL APRN Ot J44.9 CHRONIC OBSTRUCTIVE PULMONARY DISEASE, U 12/07/2017 JUSTIN MADRIGAL APRN Ot K21.9 GASTRO-ESOPHAGEAL REFLUX DISEASE WITHOUT 12/07/2017 JUSTIN MADRIGAL APRN Ot R11.2 NAUSEA WITH VOMITING, UNSPECIFIED 12/07/2017 JUSTIN MADRIGAL APRN Ot Z79.51 PRISON (CURRENT) USE OF INHALED STERO 12/07/2017 JUSTIN MADRIGAL APRN Ot Z79.52 EYEGLASS LENS CUTTER (CURRENT) USE OF SYSTEMIC STER 12/07/2017 JUSTIN MADRIGAL APRN Ot Z87.19 PERSONAL HISTORY OF OTHER DISEASES OF TH 12/07/2017 JUSTIN MADRIGAL APRN Ot Z87.59 PERSONAL HISTORY OF COMP OF PREG, CHLDBR 12/07/2017 JUSTIN MADRIGAL APRN Ot Z88.0 ALLERGY STATUS TO PENICILLIN 12/07/2017 JUSTIN MADRIGAL APRN Ot Z88.1 ALLERGY STATUS TO OTHER ANTIBIOTIC AGENT 12/07/2017 JUSTIN MADRIGAL APRN Ot Z88.5 ALLERGY STATUS TO NARCOTIC AGENT STATUS 12/07/2017 JUSTIN MADRIGAL APRN Ot Z88.6 ALLERGY STATUS TO ANALGESIC AGENT STATUS 12/07/2017 JUSTIN MADRIGAL APRN Ot Z88.8 ALLERGY STATUS TO OTH DRUG/MEDS/BIOL SUB 12/07/2017 JUSTIN MADRIGAL APRN Ot 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 ABSENCE OF BOTH CERVIX AND UTER 12/07/2017 JUSTIN MADRIGAL APRN Ot Z98.51 TUBAL LIGATION STATUS 12/09/2017 JUSTIN MADRIGAL APRN Ot F32.9 MAJOR DEPRESSIVE DISORDER, SINGLE EPISOD 12/09/2017 JUSTIN MADRIGAL APRN Ot F41.9 ANXIETY DISORDER, UNSPECIFIED 12/09/2017 JUSTIN MADRIGAL APRN Ot I10 ESSENTIAL (PRIMARY) HYPERTENSION 12/09/2017 JUSTIN MADRIGAL APRN Ot I16.1 HYPERTENSIVE EMERGENCY 12/09/2017 JUSTIN MADRIGAL APRN Ot J44.9 CHRONIC OBSTRUCTIVE PULMONARY DISEASE, U 12/09/2017 JUSTIN MADRIGAL APRN Ot K21.9 GASTRO-ESOPHAGEAL REFLUX DISEASE WITHOUT 12/09/2017 JUSTIN MADRIGAL APRN Ot R11.2 NAUSEA WITH VOMITING, UNSPECIFIED 12/09/2017 JUSTIN MADRIGAL APRN Ot Z79.51 EYEGLASS LENS CUTTER (CURRENT) USE OF INHALED STERO 12/09/2017 JUSTIN MADRIGAL APRN Ot Z79.52 PRISON (CURRENT) USE OF SYSTEMIC STER 12/09/2017 JUSTIN MADRIGAL APRN Ot Z87.19 PERSONAL HISTORY OF OTHER DISEASES OF TH 12/09/2017 JUSTIN MADRIGAL APRN Ot Z87.59 PERSONAL HISTORY OF COMP OF PREG, CHLDBR 12/09/2017 JUSTIN MADRIGAL APRN Ot Z88.0 ALLERGY STATUS TO PENICILLIN 12/09/2017 JUSTIN MADRIGAL APRN Ot Z88.1 ALLERGY STATUS TO OTHER ANTIBIOTIC AGENT 12/09/2017 JUSTIN MADRIGAL APRN Ot Z88.5 ALLERGY STATUS TO NARCOTIC AGENT STATUS 12/09/2017 JUSTIN MADRIGAL APRN Ot Z88.6 ALLERGY STATUS TO ANALGESIC AGENT STATUS 12/09/2017 JUSTIN MADRIGAL APRN Ot Z88.8 ALLERGY STATUS TO OTH DRUG/MEDS/BIOL SUB 12/09/2017 JUSTIN MADRIGAL APRN Ot 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 ABSENCE OF BOTH CERVIX AND UTER 12/09/2017 JUSTIN MADRIGAL APRN Ot Z98.51 TUBAL LIGATION STATUS 12/09/2017 JUSTIN MADRIGAL APRN Ot F32.9 MAJOR DEPRESSIVE DISORDER, SINGLE EPISOD 12/09/2017 JUSTIN MADRIGAL APRN Ot F41.9 ANXIETY DISORDER, UNSPECIFIED 12/09/2017 JUSTIN MADRIGAL APRN Ot I10 ESSENTIAL (PRIMARY) HYPERTENSION 12/09/2017 JUSTIN MADRIGAL APRN Ot I16.1 HYPERTENSIVE EMERGENCY 12/09/2017 JUSTIN MADRIGAL APRN, Ot J44.9 CHRONIC OBSTRUCTIVE PULMONARY DISEASE, U 12/09/2017 JUSTIN MADRIGAL APRN Ot K21.9 GASTRO-ESOPHAGEAL REFLUX DISEASE WITHOUT 12/09/2017 JUSTIN MADRIGAL APRN Ot R11.2 NAUSEA WITH VOMITING, UNSPECIFIED 12/09/2017 JUSTIN MADRIGAL APRN Ot Z79.51 PRISON (CURRENT) USE OF INHALED STERO 12/09/2017 JUSTIN MADRIGAL APRN Ot Z79.52 EYEGLASS LENS CUTTER (CURRENT) USE OF SYSTEMIC STER 12/09/2017 JUSTIN MADRIGAL APRN Ot Z87.19 PERSONAL HISTORY OF OTHER DISEASES OF TH 12/09/2017 JUSTIN MADRIGAL APRN Ot Z87.59 PERSONAL HISTORY OF COMP OF PREG, CHLDBR 12/09/2017 JUSTIN MADRIGAL APRN Ot Z88.0 ALLERGY STATUS TO PENICILLIN 12/09/2017 JUSTIN MADRIGAL APRN Ot Z88.1 ALLERGY STATUS TO OTHER ANTIBIOTIC AGENT 12/09/2017 JUSTIN MADRIGAL APRN Ot Z88.5 ALLERGY STATUS TO NARCOTIC AGENT STATUS 12/09/2017 JUSTIN MADRIGAL APRN Ot Z88.6 ALLERGY STATUS TO ANALGESIC AGENT STATUS 12/09/2017 JUSTIN MADRIGAL APRN Ot Z88.8 ALLERGY STATUS TO OTH DRUG/MEDS/BIOL SUB 12/09/2017 JUSTIN MADRIGAL APRN Ot 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 ABSENCE OF BOTH CERVIX AND UTER 12/09/2017 JUSTIN MADRIGAL APRN Ot Z98.51 TUBAL LIGATION STATUS 12/13/2017 JUSTIN MADRIGAL APRN Ot F32.9 MAJOR DEPRESSIVE DISORDER, SINGLE EPISOD 12/13/2017 JUSTIN MADRIGAL APRN Ot F41.9 ANXIETY DISORDER, UNSPECIFIED 12/13/2017 JUSTIN MADRIGAL APRN Ot I10 ESSENTIAL (PRIMARY) HYPERTENSION 12/13/2017 JUSTIN MADRIGAL APRN Ot I16.1 HYPERTENSIVE EMERGENCY 12/13/2017 JUSTIN MADRIGAL APRN Ot J44.9 CHRONIC OBSTRUCTIVE PULMONARY DISEASE, U 12/13/2017 JUSTIN MADRIGAL APRN Ot K21.9 GASTRO-ESOPHAGEAL REFLUX DISEASE WITHOUT 12/13/2017 JUSTIN MADRIGAL APRN Ot R11.2 NAUSEA WITH VOMITING, UNSPECIFIED 12/13/2017 JUSTIN MADRIGAL APRN Ot Z79.51 PRISON (CURRENT) USE OF INHALED STERO 12/13/2017 JUSTIN MADRIGAL APRN Ot Z79.52 PRISON (CURRENT) USE OF SYSTEMIC STER 12/13/2017 JUSTIN MADRIGAL APRN Ot Z87.19 PERSONAL HISTORY OF OTHER DISEASES OF TH 12/13/2017 JUSTIN MADRIGAL APRN Ot Z87.59 PERSONAL HISTORY OF COMP OF PREG, CHLDBR 12/13/2017 JUSTIN MADRIGAL APRN Ot Z88.0 ALLERGY STATUS TO PENICILLIN 12/13/2017 JUSTIN MADRIGAL APRN Ot Z88.1 ALLERGY STATUS TO OTHER ANTIBIOTIC AGENT 12/13/2017 JUSTIN MADRIGAL APRN Ot Z88.5 ALLERGY STATUS TO NARCOTIC AGENT STATUS 12/13/2017 JUSTIN MADRIGAL APRN Ot Z88.6 ALLERGY STATUS TO ANALGESIC AGENT STATUS 12/13/2017 JUSTIN MADRIGAL APRN Ot Z88.8 ALLERGY STATUS TO OTH DRUG/MEDS/BIOL SUB 12/13/2017 JUSTIN MADRIGAL APRN Ot 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 ABSENCE OF BOTH CERVIX AND UTER 12/13/2017 JUSTIN MADRIGAL APRN Ot Z98.51 TUBAL LIGATION STATUS 02/21/2019 LORIE SPENCER, BARTOLO Gregory Ot V76.12 OTH SCREEN MAMMO-MALIGN NEOPLASM OF [place] 02/21/2019 MICHAEL ALMEIDA FINANCIAL SERVICES DIRECTOR Ot 922.1 CONTUSION OF CHEST WALL 02/21/2019 MICHAEL ALMEIDA FINANCIAL SERVICES DIRECTOR Ot E008.1 ACTIVITIES INVOLVING WRESTLING 02/21/2019 MICHAEL ALMEIDA FINANCIAL SERVICES DIRECTOR Ot E928.8 ACCIDENT NEC 02/21/2019 Ot 723.1 CERVICALGIA 02/21/2019 Ot 721.0 CERVICAL SPONDYLOSIS 02/21/2019 ERROL MARCOS MD Ot 401.9 HYPERTENSION NOS 02/21/2019 ERROL MARCOS MD Ot 414.9 CHR ISCHEMIC HRT DIS NOS 02/21/2019 ERROL MARCOS MD Ot 496 CHR AIRWAY OBSTRUCT NEC 02/21/2019 ERROL MARCOS MD Ot 785.1 PALPITATIONS 02/21/2019 KATIANA SPENCER, NELSY Boyd Ot M25.512 PAIN IN LEFT SHOULDER 02/21/2019 JASON SAPP, KIAH Solis Ot F41.8 OTHER SPECIFIED ANXIETY DISORDERS 02/21/2019 KIAH VENEGAS Ot I25.10 ATHSCL HEART DISEASE OF [place] CORONARY 02/21/2019 KIAH VENEGAS Ot J44.9 CHRONIC OBSTRUCTIVE PULMONARY DISEASE, U 02/21/2019 KIAH VENEGAS Ot R00.2 PALPITATIONS 02/21/2019 KIAH VENEGAS Ot F41.8 OTHER SPECIFIED ANXIETY DISORDERS 02/21/2019 KIAH VENEGAS Ot I25.10 ATHSCL HEART DISEASE OF [place] CORONARY 02/21/2019 KIAH VENEGAS Ot J44.9 CHRONIC OBSTRUCTIVE PULMONARY DISEASE, U 02/21/2019 KIAH VENEGAS Ot R00.2 PALPITATIONS 02/21/2019 KIAH VENEGAS Ot E78.2 MIXED HYPERLIPIDEMIA 02/21/2019 KIAH VENEGAS Ot E78.2 MIXED HYPERLIPIDEMIA 02/21/2019 KIAH VENEGAS Ot I10 ESSENTIAL (PRIMARY) HYPERTENSION 02/21/2019 KIAH VENEGAS Ot I25.10 ATHSCL HEART DISEASE OF [place] CORONARY 02/21/2019 MICHAEL ALMEIDA Ot Z12.31 ENCNTR SCREEN MAMMOGRAM FOR MALIGNANT NE Procedures Code Description [place] [address] ROUTINE VENIPUNCTURE 07/20/2013 52584 HEP B SURFACE ANTIGEN (STATE) 07/20/2013 80908 HEP C PCR QUANT W/YULISA 07/20/2013 INFECTIOU SWEET, CLINIC 07/20/2013 21395 CBC 07/20/2013 3131003 GFR CALC (RESULT ONLY) 07/20/2013 83179 CMP 07/20/2013 16971 PT/INR 07/20/2013 29033 HEP B SURFACE ANTIBODY 07/20/2013 50206 HEP A ANTIBODY, IGM (RML) 07/20/2013 43797 HIV ANTIBODIES (RML) 07/21/2013 50164 BMP 08/19/2013 37866 ROUTINE VENIPUNCTURE 08/19/2013 55968 OXIMETRY 09/23/2013 86411 BIOPSY SKIN LESION (SINGLE) 10/07/2013 38473 BIOPSY SKIN (EACH ADD'L) 10/07/2013 50921 WART DESTRUCT 1-14 (CRYO) 10/07/2013 25344 BIOPSY SKIN LESION (SINGLE) 11/28/2013 78149 BIOPSY SKIN (EACH ADD'L) 11/28/2013 00179 PSYCH DIAGNOSTIC EVALUATION 12/12/2013 33831 XRAY SHOULDER RIGHT COMP 2 VIEWS 08/10/2014 49118 PSYTX PT&/FAMILY 45 MINUTES 08/22/2014 71559 XRAY CERVICAL SPINE, 2 OR 3 VIEWS 09/13/2014 31835 [employer] 09/13/2014 91427 PSYTX PT&/FAMILY 45 MINUTES 09/13/2014 Results Test [...] Serum or plasma aspartate aminotransferase measurement (enzymatic activity/volume) 11 U/L 5-34 Serum or plasma alanine aminotransferase measurement (enzymatic activity/volume) 8 U/L 0-55 Serum or plasma protein measurement (mass/volume) 6.4 g/dL 6.4-8.2 Serum or plasma albumin measurement (mass/volume) 4.1 g/dL 3.2-4.5 Lipid 1996 panel - 10/22/16 08:30 Serum or plasma triglyceride measurement (mass/volume) 149 mg/dL <150 Serum or plasma cholesterol measurement (mass/volume) 152 mg/dL < 200 Serum or plasma cholesterol in HDL measurement (mass/volume) 53 mg/dL 40-60 Cholesterol in LDL [mass/volume] in serum or plasma by direct assay 78 mg/dL 1-129 Serum or plasma cholesterol in VLDL measurement (mass/volume) 30 mg/dL 5-40 Capillary blood glucose measurement by glucometer (mass/volume) - 11/20/16 12:44 Capillary blood glucose measurement by glucometer (mass/volume) [...] Automated erythrocyte mean corpuscular hemoglobin concentration measurement (mass/volume) 34 g/dL 32-36 Automated erythrocyte distribution width ratio 12.6 % 10.0- 14.5 Automated blood platelet count (count/volume) 188 10*3/uL [...] Blood monocytes automated count (number/volume) 0.6 10*3 0.0- 1.0 Automated eosinophil count 0.3 10*3/uL 0.0-0.3 Automated [...] Serum or plasma aspartate aminotransferase measurement (enzymatic activity/volume) 14 U/L 5-34 Serum or plasma alanine aminotransferase measurement (enzymatic activity/volume) 10 U/L 0-55 Serum or plasma protein measurement (mass/volume) 6.9 g/dL 6.4-8.2 Serum or plasma albumin measurement (mass/volume) 4.4 g/dL 3.2-4.5 Serum or plasma troponin i.cardiac measurement (mass/volume) - 11/20/16 13:05 Serum or plasma troponin i.cardiac measurement (mass/volume) < ng/mL <0.30 Serum or plasma acetaminophen measurement (mass/volume) [...] gravity of urine by test strip 1.010 1.016-1.022 Urine protein assay by test strip, semi-quantitative [...] sediment leukocyte count by microscopy (number/high power field) [HPF] NRG Bacteria detection in urine sediment by light microscopy NEGATIVE NRG Squamous epithelial cells detection in urine sediment by light microscopy 0-2 NRG Crystals detection in urine sediment by light microscopy NONE NRG Casts detection in urine sediment by light microscopy NONE NRG Mucus detection in urine sediment by light microscopy NEGATIVE NRG Complete urinalysis with reflex to culture NO NRG CULTURE, URINE - 06/15/17 13:38 Urine Culture, Routine Final report NRG Result 1 Escherichia coli NRG Antimicrobial Susceptibility NRG Complete blood count (CBC) with automated white blood cell (WBC) differential - 12/07/17 11:11 Blood leukocytes automated count (number/volume) 6.9 10*3/uL 4.3-11.0 Blood erythrocytes automated count (number/volume) 4.34 10*6/uL 4.35-5.85 Venous blood hemoglobin measurement (mass/volume) 14.2 g/dL 11.5-16.0 Blood hematocrit (volume fraction) 41 % 35-52 Automated erythrocyte mean corpuscular volume 95 [foz_us] 80-99 Automated erythrocyte mean corpuscular hemoglobin (mass per erythrocyte) 33 pg 25-34 Automated erythrocyte mean corpuscular hemoglobin concentration measurement (mass/volume) 35 g/dL 32-36 Automated erythrocyte distribution width ratio 13.0 % 10.0- 14.5 Automated blood platelet count (count/volume) 154 10*3/uL 130-400 Automated blood platelet mean volume measurement 11.1 [foz_us] 7.4-10.4 Automated blood neutrophils/100 leukocytes 52 % 42-75 Automated blood lymphocytes/100 leukocytes 34 % 12-44 Blood monocytes/100 leukocytes 8 % 0-12 Automated blood eosinophils/100 leukocytes 5 % 0-10 Automated blood basophils/100 leukocytes 1 % 0-10 Blood neutrophils automated count (number/volume) 3.6 10*3 1.8-7.8 Blood lymphocytes automated count (number/volume) 2.3 10*3 1.0-4.0 Blood monocytes automated count (number/volume) 0.6 10*3 0.0- 1.0 Automated eosinophil count 0.4 10*3/uL 0.0-0.3 Automated blood basophil count (count/volume) 0.0 10*3/uL 0.0-0.1 PT panel in platelet poor plasma by coagulation assay - 12/07/17 11:11 Prothrombin time (PT) in platelet poor plasma by coagulation assay 13.4 s 12.2-14.7 INR in platelet poor plasma or blood by coagulation assay 1.0 0.8-1.4 Comprehensive metabolic panel - 12/07/17 11:11 Serum or plasma sodium measurement (moles/volume) 135 mmol/L 135-145 Serum or plasma potassium measurement (moles/volume) 5.2 mmol/L 3.6-5.0 Serum or plasma chloride measurement (moles/volume) 102 mmol/L 98-107 Carbon dioxide 26 mmol/L 21-32 Serum or plasma anion gap determination (moles/volume) 7 mmol/L 5-14 Serum or plasma urea nitrogen measurement (mass/volume) 9 mg/dL 7-18 Serum or plasma creatinine measurement (mass/volume) 0.81 mg/dL 0.60-1.30 Serum or plasma urea nitrogen/creatinine mass ratio 11 NRG Serum or plasma creatinine measurement with calculation of estimated glomerular filtration rate > NRG Serum or plasma glucose measurement (mass/volume) 94 mg/dL 70-105 Serum or plasma calcium measurement (mass/volume) 9.2 mg/dL 8.5-10.1 Serum or plasma total bilirubin measurement (mass/volume) 0.9 mg/dL 0.1-1.0 Serum or plasma alkaline phosphatase measurement (enzymatic activity/volume) 80 U/L 40-136 Serum or plasma aspartate aminotransferase measurement (enzymatic activity/volume) 19 U/L 5-34 Serum or plasma alanine aminotransferase measurement (enzymatic activity/volume) 12 U/L 0-55 Serum or plasma protein measurement (mass/volume) 6.8 g/dL 6.4-8.2 Serum or plasma albumin measurement (mass/volume) 3.9 g/dL 3.2-4.5 Magnesium - 12/07/17 11:11 Magnesium 2.2 mg/dL 1.8-2.4 Serum or plasma troponin i.cardiac measurement (mass/volume) - 12/07/17 11:11 Serum or plasma troponin i.cardiac measurement (mass/volume) < ng/mL <0.30 Urine drug screening test - 12/07/17 11:20 Urine phencyclidine detection by screening method NEGATIVE NEGATIVE Urine benzodiazepines detection by screening method POSITIVE NEGATIVE Urine cocaine detection NEGATIVE NEGATIVE Urine amphetamines detection by screening method NEGATIVE NEGATIVE Urine methamphetamine detection by screening method NEGATIVE NEGATIVE Urine cannabinoids detection by screening method NEGATIVE NEGATIVE Urine opiates detection by screening method NEGATIVE NEGATIVE Urine barbiturates detection NEGATIVE NEGATIVE Screening urine tricyclic antidepressants detection NEGATIVE NEGATIVE Urine methadone detection by screening method NEGATIVE NEGATIVE Urine oxycodone detection POSITIVE NEGATIVE Urine propoxyphene detection NEGATIVE NEGATIVE Complete urinalysis with reflex to culture - 12/07/17 11:20 Urine color determination YELLOW NRG Urine clarity determination CLEAR NRG Urine pH measurement by test strip 7 5-9 Specific gravity of urine by test strip 1.010 1.016-1.022 Urine protein assay by test strip, semi-quantitative NEGATIVE NEGATIVE Urine glucose detection by automated test strip NEGATIVE NEGATIVE Erythrocytes detection in urine sediment by light microscopy NEGATIVE NEGATIVE Urine ketones detection by automated test [...] sediment leukocyte count by microscopy (number/high power field) NONE NRG Bacteria detection in urine sediment by light microscopy NEGATIVE NRG Crystals detection in urine sediment by light microscopy NONE NRG Casts detection in urine sediment by light microscopy NONE NRG Mucus detection in urine sediment by light microscopy NEGATIVE NRG Complete urinalysis with reflex to culture NO NRG CULTURE, URINE - 02/18/18 10:57 CULTURE, URINE, ROUTINE SEE NOTE NRG HEP C PCR QUANT (Graph)-APPROVAL REQUIRED - 06/15/18 12:16 HCV RNA, QUANTITATIVE REAL TIME PCR <15 NOT DETECTED IU/mL NOT DETECTED HCV RNA, QUANTITATIVE REAL TIME PCR <1.18 NOT DETECTED Log IU/mL NOT DETECTED COMMENT NRG LITHIUM (ESKALITH(R)), SERUM - 08/30/18 14:48 LITHIUM 0.7 mmol/L 0.6-1.2 Complete blood count (CBC) with automated white blood cell (WBC) differential - 04/09/19 01:14 Blood leukocytes automated count (number/volume) 8.9 10*3/uL 4.3-11.0 Blood erythrocytes automated count (number/volume) 4.08 10*6/uL 4.35-5.85 Venous blood hemoglobin measurement (mass/volume) 13.3 g/dL 11.5-16.0 Blood hematocrit (volume fraction) 39 % 35-52 Automated erythrocyte mean corpuscular volume 94 [foz_us] 80-99 Automated erythrocyte mean corpuscular hemoglobin (mass per erythrocyte) 33 pg 25-34 Automated erythrocyte mean corpuscular hemoglobin concentration measurement (mass/volume) 35 g/dL 32-36 Automated erythrocyte distribution width ratio 12.5 % 10.0- 14.5 Automated blood platelet count (count/volume) 195 10*3/uL 130-400 Automated blood platelet mean volume measurement 11.2 [foz_us] 7.4-10.4 Automated blood neutrophils/100 leukocytes 57 % 42-75 Automated blood lymphocytes/100 leukocytes 30 % 12-44 Blood monocytes/100 leukocytes 8 % 0-12 Automated blood eosinophils/100 leukocytes 5 % 0-10 Automated blood basophils/100 leukocytes 1 % 0-10 Blood neutrophils automated count (number/volume) 5.1 10*3 1.8-7.8 Blood lymphocytes automated count (number/volume) 2.7 10*3 1.0-4.0 Blood monocytes automated count (number/volume) 0.7 10*3 0.0- 1.0 Automated eosinophil count 0.4 10*3/uL 0.0-0.3 Automated blood basophil count (count/volume) 0.1 10*3/uL 0.0-0.1 Encounters ACCT No. Visit Date/Time Discharge Status Pt. Type Provider Facility Loc./Unit Complaint [id number] 01/11/2019 14:35:18 01/11/2019 23:59:59 CLS Outpatient Rodolfo Curry [id number] 03/15/2019 13:04:00 03/15/2019 23:59:59 CLS Outpatient KIAH VENEGAS [facility] CARD CAD [id number] 03/10/2019 15:37:00 03/10/2019 23:59:59 CLS Preadmit KIAH VENEGAS [facility] CARD CAD [id number] 02/23/2019 10:45:00 02/23/2019 23:59:59 CLS Outpatient AZAM MATTHEWS [employer] SERVICES DIRECTOR [facility] RAD SCREENING [id number] 12/07/2017 11:00:00 12/07/2017 13:09:00 DIS Emergency MADRIGALJUSTIN IMMIGRATION COORDINATOR [facility] ER N/V/HTN [id number] 07/23/2017 18:30:00 07/23/2017 19:31:00 DIS Emergency NATALIIATAMEKA FINANCIAL SERVICES DIRECTOR [facility] ER RIGHT ANKLE INJ;L AND R ANKLE SWELLING [id number] 02/26/2017 13:06:00 02/26/2017 23:59:59 CLS Outpatient MICHAEL ALMEIDA FINANCIAL SERVICES DIRECTOR [facility] RAD SCREENING Z12.39. [id number] 11/20/2016 12:36:00 11/20/2016 16:37:00 DIS Emergency CHRISTY DOTY MD [facility] ER AMS [id number] 10/22/2016 08:22:00 10/22/2016 23:59:59 CLS Outpatient KIAH VENEGAS [facility] LAB CAD,HYPERTENSION [id number] 07/14/2016 09:00:00 07/14/2016 23:59:59 CLS Outpatient KIAH VENEGAS [facility] LAB HLP MIXED [id number] 03/31/2016 13:30:00 03/31/2016 23:59:59 CLS Preadmit KIAH VENEGAS [facility] CARD COPD,PALPITATIONS, [id number] 12/31/2015 12:38:00 03/30/2016 00:01:00 DIS Outpatient KIAH VENEGAS [facility] CARD COPD,PALPITATIONS, [id number] 01/17/2016 19:05:00 01/18/2016 17:10:00 DIS Outpatient ERROL MARCOS MD [facility] CATH CP [id number] 01/09/2016 08:08:00 01/09/2016 23:59:59 CLS Outpatient KIAH VENEGAS [facility] CARD ANXIETY,CAD,COPD,HEART PALPITATIONS [id number] 11/14/2015 08:41:00 11/14/2015 23:59:59 CLS Outpatient NELSY SAAB MD [facility] RAD LEFT SHOULDER PAIN [id number] 04/17/2015 14:10:00 04/17/2015 18:47:00 DIS Emergency ZAKI RODAS [facility] ER INSECT STING [id number] 01/25/2015 10:32:00 01/25/2015 23:59:59 CLS Outpatient ERROL MARCOS MD [facility] CARD CAD COPD HEART PALPITATIONS [id number] 01/16/2015 08:12:00 01/23/2015 11:42:00 DIS Outpatient ANI MEJIA MD [facility] REHAB LUMBAGO; CERVICALGIA [id number] 07/18/2014 18:33:00 07/18/2014 20:36:00 DIS Emergency JOBY HERNANDEZ MD [facility] ER R SHOULDER/ARM/NECK PAIN [id number]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
[2019-04-09] MEDS ORDERED: KCL 10 MEQ TAB (MICRO K) PO ONE (03:15)
[2019-04-09 04:46] LABS: BILIRUBIN,URINE NEGATIVE (NEGATIVE); CLARITY,URINE CLEAR; COLOR,URINE YELLOW; GLUCOSE, URINE (UA) NEGATIVE (NEGATIVE); KETONES,URINE NEGATIVE (NEGATIVE); LEUKOCYTE ESTERASE ,URINE NEGATIVE (NEGATIVE); NITRITE,URINE NEGATIVE (NEGATIVE); PH,URINE 6 (5-9); PROTEIN,URINE NEGATIVE (NEGATIVE); UROBILINOGEN,URINE NORMAL (NORMAL)
[2019-04-09 04:55] LABS: BACTERIA,URINE TRACE /HPF; SQUAMOUS EPITHELIAL CELL,UR RARE /HPF
--- NOTE | 2019-04-09 05:14 | ED Cardiac General ---
History of Present Illness General Chief Complaint: Cardiac/General Problems Stated Complaint: DIZZY Nursing Triage Note: TO ED VIA [facility] FROM WORK AT [employer]. C/O NAUSEA, DIZZINESS, HEART PALPITATIONS SINCE 2330 TONIGHT. DID NOT PASS OUT OR LOC. CURRENTLY HAS BIOTEL HEART MONITOR STARTED 03/14/[address] CASTILLO FOR 30 DAYS. 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 Symptoms started at 23:30. Blood pressure for EMS was 88/64. Heart rate was 64. Blood sugar was 161. Temperature was 9 2.9 but patient was diaphoretic at the time. Patient reports she vomited earlier in the day and was experiencing racing heart. 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 She denies any drug or alcohol use. She does smoke. She is experiencing no chest pain at this time. Symptoms are improving. Allergies and Home Medications Allergies Coded Allergies: nicotine (Unverified Allergy, Intermediate, HIVES, ITCHING, RASH AROUND PATCH, 05/30/10) Penicillins (Verified Allergy, Unknown, 10/16/09) acetaminophen (Verified Allergy, Unknown, 10/16/09) bupropion (Verified Allergy, Unknown, 10/16/09) cephalexin (Verified Allergy, Unknown, 10/16/09) codeine (Verified Allergy, Unknown, 10/16/09) morphine (Verified Allergy, Unknown, 11/20/16) sertraline (Verified Allergy, Unknown, 10/16/09) Home Medications Albuterol Sulfate 8.5 Gm Hfa.aer.ad, 2 PUFF INH Q4H PRN for SHORTNESS OF BREATH, (Reported) Albuterol Sulfate 2.5 Mg/3 Ml Vial.neb, 2.5 MG IH Q6H PRN for SHORTNESS OF BREATH, (Reported) Amlodipine Besylate 5 Mg Tablet, 5 MG PO DAILY Prescribed by: ERROL CASTILLO on 01/18/16 1217 Budesonide/Formoterol Fumarate 10.2 Gm Hfa.aer.ad, 2 PUFF INH BID, (Reported) Cetirizine HCl 10 Mg Tablet, 10 MG PO DAILY PRN for ALLERGIES, (Reported) Cyclobenzaprine HCl 10 Mg Tablet, 10 MG PO TID, (Reported) Ibuprofen 200 Mg Tablet, 800 MG PO TID PRN for PAIN, (Reported) TAKES 4 (200MG) TABLETS Lisinopril 40 Mg Tablet, 20 MG PO DAILY, (Reported) TAKES 1/2 (40MG) TABLET Montelukast Sodium 10 Mg Tablet, 10 MG PO DAILY, (Reported) Oxycodone HCl/Acetaminophen 1 Each Tablet, 1 TAB PO BID, (Reported) Pantoprazole Sodium 40 Mg Tablet.dr, 40 MG PO DAILY, (Reported) Topiramate 50 Mg Tablet, 50 MG PO DAILY, (Reported) Trazodone HCl 100 Mg Tablet, 100 MG PO HS PRN for SLEEP, (Reported) Venlafaxine HCl 75 Mg Cap.er.24h, 75 MG PO DAILY, (Reported) TAKE WITH FOOD Patient Home Medication List Home Medication List Reviewed: Yes Review of Systems Review of Systems Constitutional: see HPI EENTM: No Symptoms Reported Respiratory: Wheezing Cardiovascular: See HPI Gastrointestinal: See HPI Genitourinary: No Symptoms Reported Musculoskeletal: no symptoms reported Skin: no symptoms reported Psychiatric/Neurological: See HPI Endocrine: No Symptoms Reported Hematologic/Lymphatic: No Symptoms Reported Past Xsxrsux-Netirv-Jbdcqf Hx Patient Social History Alcohol Use: Denies Use Recreational Drug Use: No (DENIES AT THIS TIME) Smoking Status: Current Everyday Smoker Recent Foreign Travel: No Contact w/Someone Who Travel: No Recent Infectious Disease Expo: No Recent Hopitalizations: No Physical Abuse: No Sexual Abuse: No Mistreated: No Fear: No Immunizations Up To Date Tetanus Booster (TDap): Unknown Date of Pneumonia Vaccine: Sep 21, 2013 Date of Influenza Vaccine: Jun 27, 2014 Seasonal Allergies Seasonal Allergies: No Past Medical History Surgeries: Yes (CARPAL TUNNEL x2, R Knee scope, heart cath x1) Section, Hysterectomy, Orthopedic, Tubal Ligation Respiratory: Yes COPD Currently Using CPAP: No Currently Using BIPAP: No Cardiac: Yes (IRR HR) Neurological: Yes (TREMORS) Reproductive Disorders: No Gastrointestinal: Yes (EASILY CONSTIPATED) Gastroesophageal Reflux Musculoskeletal: Yes (SCOLIOSIS) Endocrine: No Cancer: No Psychosocial: Yes Anxiety, Depression Integumentary: No Blood Disorders: Yes (HEP C) Family Medical History Diabetes mellitus 19 MOTHER FH: COPD (chronic obstructive pulmonary disease) 19 MOTHER FH: cancer 19 FATHER FH: depression 19 MOTHER Hypertension 19 MOTHER Hypoglycemia 19 FATHER No Pertinent Family Hx Physical Exam Vital Signs Vital Signs - First Documented 04/09/19 04/09/19 01:10 01:56 Temp 96.9 Pulse 53 Resp 18 B/P (MAP) 106/76 (86) Pulse Ox 100 O2 Delivery Room Air Capillary Refill : Less Than 3 Seconds Height, Weight, BMI Height: 5'4.00" Weight: 140lbs. 9.0oz. 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 Norm as Tested Skin: Normal Color, Warm/Dry Progress/Results/Core Measures Results/Orders Lab Results Laboratory Tests Test 04/09/19 01:14 04/09/19 04:22 Range/Units White Blood Count 8.9 4.3-11.0 10^3/uL Red Blood Count 4.08 L 4.35-5.85 10^6/uL Hemoglobin 13.3 11.5-16.0 G/DL Hematocrit 39 35-52 % Mean Corpuscular Volume 94 80-99 FL Mean Corpuscular Hemoglobin 33 25-34 PG Mean Corpuscular Hemoglobin Concent 35 32-36 G/DL Red Cell Distribution Width 12.5 10.0-14.5 % Platelet Count 195 130-400 10^3/uL Mean Platelet Volume 11.2 H 7.4-10.4 FL Neutrophils (%) (Auto) 57 42-75 % Lymphocytes (%) (Auto) 30 12-44 % Monocytes (%) (Auto) 8 0-12 % Eosinophils (%) (Auto) 5 0-10 % Basophils (%) (Auto) 1 0-10 % Neutrophils # (Auto) 5.1 1.8-7.8 X 10^3 Lymphocytes # (Auto) 2.7 1.0-4.0 X 10^3 Monocytes # (Auto) 0.7 0.0-1.0 X 10^3 Eosinophils # (Auto) 0.4 H 0.0-0.3 10^3/uL Basophils # (Auto) 0.1 0.0-0.1 10^3/uL Prothrombin Time 13.3 12.2-14.7 SEC INR Comment 1.0 0.8-1.4 Activated Partial Thromboplast Time 26 24-35 SEC Sodium Level 134 L 135-145 MMOL/L Potassium Level 3.3 L 3.6-5.0 MMOL/L Chloride Level 97 L 98-107 MMOL/L Carbon Dioxide Level 25 21-32 MMOL/L Anion Gap 12 5-14 MMOL/L Blood Urea Nitrogen 8 7-18 MG/DL Creatinine 1.19 0.60-1.30 MG/DL Estimat Glomerular Filtration Rate 48 BUN/Creatinine Ratio 7 Glucose Level 163 H 70-105 MG/DL Calcium Level 9.5 8.5-10.1 MG/DL Corrected Calcium 9.4 8.5-10.1 MG/DL Magnesium Level 1.9 1.8-2.4 MG/DL Total Bilirubin 1.1 H 0.1-1.0 MG/DL Aspartate Amino Transf (AST/SGOT) 13 5-34 U/L Alanine Aminotransferase (ALT/SGPT) 9 0-55 U/L Alkaline Phosphatase 77 40-136 U/L Myoglobin 67.5 10.0-92.0 NG/ML Troponin I < 0.028 <0.028 NG/ML C-Reactive Protein High Sensitivity 0.04 0.00-0.50 MG/DL Total Protein 6.3 L 6.4-8.2 GM/DL Albumin 4.1 3.2-4.5 GM/DL Urine Color YELLOW Urine Clarity CLEAR Urine pH 6 5-9 Urine Specific [place] 1.005 L 1.016-1.022 Urine Protein NEGATIVE NEGATIVE Urine Glucose (UA) NEGATIVE NEGATIVE Urine Ketones NEGATIVE NEGATIVE Urine Nitrite NEGATIVE NEGATIVE Urine Bilirubin NEGATIVE NEGATIVE Urine Urobilinogen NORMAL NORMAL MG/DL Urine Leukocyte Esterase NEGATIVE NEGATIVE Urine RBC (Auto) NEGATIVE NEGATIVE Urine RBC NONE /HPF Urine WBC NONE /HPF Urine Squamous Epithelial Cells RARE /HPF Urine Crystals NONE /LPF Urine Bacteria TRACE /HPF Urine Casts NONE /LPF Urine Mucus NEGATIVE /LPF Urine Culture Indicated NO My Orders Orders - DOUGLAS CARDENAS MD Cbc With Automated Diff (04/09/19:17) Magnesium (04/09/19:17) Chest 1 View, Ap/Pa Only (04/09/19:17) Ekg Tracing (04/09/19:17) Cardiac Profile 1 (04/09/19:17) Comprehensive Metabolic Panel (04/09/19:17) Myoglobin Serum (04/09/19:17) Protime With Inr (04/09/19:17) Partial Thromboplastin Time (04/09/19:17) O2 (04/09/19:17) Monitor-Rhythm Ecg Trace Only (04/09/19:17) Ed Iv/Invasive Line Start (04/09/19:17) Aspirin Chewable Tablet (Baby Aspirin Ch (04/09/19 01:30) Hs C Reactive Protein (04/09/19:17) Ua Culture If Indicated (04/09/19:17) Albuterol/Ipra Inhalation Soln (Duoneb I (04/09/19 01:30) Svn Small Volume Nebulizer (04/09/19 01:30) Potassium Chloride (Tablet) (Klor Con Ta (04/09/19 03:15) Medications Given in ED Vital Signs/I&O 04/09/19 04/09/19 04/09/19 01:10 01:56 05:28 Temp 96.9 96.9 Pulse 53 46 Resp 18 18 B/P (MAP) 106/76 (86) 127/41 (69) Pulse Ox 100 100 O2 Delivery Room Air Room Air Blood Pressure Mean: 86 Progress Progress Note : Progress Note Patient was hydrated with IV fluids as started by EMS. Blood pressure normalized. Patient was found to be quite wheezy. A DuoNeb treatment was administered with improvement in symptoms. Hypokalemia was replaced with oral potassium. Patient was bradycardic which likely contributed to her episode. She was advised to stop her beta iman until further discussion with Dr. Castillo. Initial ECG Impression Date: Apr 09, 2019 Initial ECG Impression Time: 01:15 Initial ECG Rate: 45 Initial ECG Rhythm: S.Larry Comment Sinus bradycardia with no ST elevation or depression. No axis deviation. Diagnostic Imaging Diagonstic Imaging: Xray Plain Films/CT/US/NM/MRI: chest Comments Chest x-ray viewed by me. Report not yet available. No acute abnormalities appreciated. Departure Impression Primary Impression: Bradycardia Additional Impressions: Hypotension Qualified Codes: I95.9 - Hypotension, unspecified Hypokalemia Disposition: HOME, SELF-CARE Condition: Improved Departure-Patient Inst. Decision time for Depature: 05:10 Referrals: AZAM MATTHEWS (PCP) Primary Care Physician JUSTO HOROWITZ DO (Family) Primary Care Physician Patient Instructions: Bradycardia Add. Discharge Instructions: Drink plenty of clear liquids. Stop Coreg (carvedilol) until you can discuss further with Dr. Castillo. Return to the emergency room if you have further problems or worsening condition. All discharge instructions reviewed with patient and/or family. Voiced understanding. Work/School Note: Work Release Form Date Seen in the Emergency Department: Apr 09, 2019 Return to Work: Apr 10, 2019 Restrictions: No Restrictions Copy Copies To 1: ERROL CASTILLO MD, JOSHUA T MD Apr 09, 2019 05:14
[2019-04-09 05:28] VITALS: BP 127/41
--- NOTE | 2019-04-09 08:23 | Diagnostic Imaging Report ---
INDICATION: Hypotension, dizziness. TECHNIQUE: Single view chest 1:25 AM. CORRELATION STUDY: 12/07/2017. FINDINGS: Curvature thoracic spine results in distortion of chest anatomy. Given this, heart size, mediastinum and vasculature overall within normal limits. A generator pack over the left chest is demonstrated. Lead projecting from this is not present. Lung oakes are hyperinflated with chronic type change but overall clear. Extensive, 4 level cervical spine fusion plate. IMPRESSION: 1. Negative for acute abnormality of the chest. Dictated by: Dictated on workstation # [id number]
== END 2019-04-09 05:29 | disposition home or self-care (01) ==
LOC: EDUNIT# 01:10 → ER 01:13
DX: I95.9 Hypotension, unspecified (principal); E87.6 Hypokalemia; R00.1 Bradycardia, unspecified; J44.9 Chronic obstructive pulmonary disease, unspecified; K21.9 Gastro-esophageal reflux disease without esophagitis; F41.9 Anxiety disorder, unspecified; F32.9 Major depressive disorder, single episode, unspecified; B19.20 Unspecified viral hepatitis C without hepatic coma; F17.200 Nicotine dependence, unspecified, uncomplicated; Z88.0 Allergy status to penicillin; Z88.5 Allergy status to narcotic agent; Z88.1 Allergy status to other antibiotic agents; Z88.8 Allergy status to other drugs, medicaments and biological substances; Z98.51 Tubal ligation status; Z90.710 Acquired absence of both cervix and uterus; Z95.9 Presence of cardiac and vascular implant and graft, unspecified
CPT/HCPCS: 36415; 71045; 80053; 81000; 83735; 83874; 84484; 85025; 85610; 85730; 86141; 93005; 93041; 94640

== ENCOUNTER → 2019-04-18 | Outpatient (CLI) | payer MEDICAID | LOC: CARD 08:55 | PROVIDERS: ATTEND Physician Assistant | DX: I35.1 Nonrheumatic aortic (valve) insufficiency (principal); I11.9 Hypertensive heart disease without heart failure; I25.10 Atherosclerotic heart disease of native coronary artery without angina pectoris; F41.8 Other specified anxiety disorders | CPT/HCPCS: 93306 ==

== ENCOUNTER 2019-06-22 12:24 | Emergency (ER) | payer MEDICAID ==
[~2019-06-22] VITALS: Ht 160 cm; Wt 66.8 kg
--- NOTE | 2019-06-22 12:52 | ED Upper Extremity ---
General Chief Complaint: Upper Extremity Stated Complaint: L THUMB INJ Nursing Triage Note: STATES A HOPE CHEST LID CLOSED ON HER LEFT THUMB. Nursing Sepsis Screen: No Definite Risk Source: patient Exam Limitations: no limitations History of Present Illness Date Seen by Provider: Jun 22, 2019 Time Seen by Provider: 12:51 Initial Comments To ER with reports of left thumb pain after a hope chest lid closed on her thumb just prior to arrival Onset: just prior to arrival Severity: moderate Pain/Injury Location: left thumb Method of Injury: direct blow Modifying Factors: Worse With Movement Allergies and Home Medications Allergies Coded Allergies: nicotine (Unverified Allergy, Intermediate, HIVES, ITCHING, RASH AROUND PATCH, 05/30/10) Penicillins (Verified Allergy, Unknown, 10/16/09) acetaminophen (Verified Allergy, Unknown, 10/16/09) bupropion (Verified Allergy, Unknown, 10/16/09) cephalexin (Verified Allergy, Unknown, 10/16/09) codeine (Verified Allergy, Unknown, 10/16/09) morphine (Verified Allergy, Unknown, 11/20/16) sertraline (Verified Allergy, Unknown, 10/16/09) Home Medications Albuterol Sulfate 8.5 Gm Hfa.aer.ad, 2 PUFF INH Q4H PRN for SHORTNESS OF BREATH, (Reported) Albuterol Sulfate 2.5 Mg/3 Ml Vial.neb, 2.5 MG IH Q6H PRN for SHORTNESS OF BREATH, (Reported) Amlodipine Besylate 5 Mg Tablet, 5 MG PO DAILY Prescribed by: ERROL MARCOS on 01/18/16 1217 Budesonide/Formoterol Fumarate 10.2 Gm Hfa.aer.ad, 2 PUFF INH BID, (Reported) Cetirizine HCl 10 Mg Tablet, 10 MG PO DAILY PRN for ALLERGIES, (Reported) Cyclobenzaprine HCl 10 Mg Tablet, 10 MG PO TID, (Reported) Ibuprofen 200 Mg Tablet, 800 MG PO TID PRN for PAIN, (Reported) TAKES 4 (200MG) TABLETS Lisinopril 40 Mg Tablet, 20 MG PO DAILY, (Reported) TAKES 1/2 (40MG) TABLET Montelukast Sodium 10 Mg Tablet, 10 MG PO DAILY, (Reported) Oxycodone HCl/Acetaminophen 1 Each Tablet, 1 TAB PO BID, (Reported) Pantoprazole Sodium 40 Mg Tablet.dr, 40 MG PO DAILY, (Reported) Topiramate 50 Mg Tablet, 50 MG PO DAILY, (Reported) Trazodone HCl 100 Mg Tablet, 100 MG PO HS PRN for SLEEP, (Reported) Venlafaxine HCl 75 Mg Cap.er.24h, 75 MG PO DAILY, (Reported) TAKE WITH FOOD Patient Home Medication List Home Medication List Reviewed: Yes (at [facility]) Review of Systems Constitutional: see HPI EENTM: see HPI Respiratory: no symptoms reported Cardiovascular: no symptoms reported Genitourinary: no symptoms reported Musculoskeletal: see HPI Skin: no symptoms reported Psychiatric/Neurological: No Symptoms Reported Past Anzxdzk-Oaujup-Olqusa Hx Patient Social History Alcohol Use: Rarely Uses Recreational Drug Use: No Smoking Status: Current Everyday Smoker Recent Foreign Travel: No Contact w/Someone Who Travel: No Recent Infectious Disease Expo: No Recent Hopitalizations: No Immunizations Up To Date Tetanus Booster (TDap): Unknown Date of Pneumonia Vaccine: Sep 21, 2013 Date of Influenza Vaccine: Jun 27, 2014 Seasonal Allergies Seasonal Allergies: No Past Medical History Surgeries: Yes (CARPAL TUNNEL x2, R Knee scope, heart cath x1) Section, Hysterectomy, Orthopedic, Tubal Ligation Respiratory: Yes COPD Currently Using CPAP: No Currently Using BIPAP: No Cardiac: Yes (IRR HR) Neurological: Yes (TREMORS) Reproductive Disorders: No Gastrointestinal: Yes (EASILY CONSTIPATED) Gastroesophageal Reflux Musculoskeletal: Yes (SCOLIOSIS) Endocrine: No Cancer: No Psychosocial: Yes Anxiety, Depression Integumentary: No Blood Disorders: Yes (HEP C) Family Medical History Diabetes mellitus 19 MOTHER FH: COPD (chronic obstructive pulmonary disease) 19 MOTHER FH: cancer 19 FATHER FH: depression 19 MOTHER Hypertension 19 MOTHER Hypoglycemia 19 FATHER No Pertinent Family Hx Physical Exam Vital Signs Vital Signs - First Documented 06/22/19 12:42 Temp 37.0 Pulse 61 Resp 16 B/P (MAP) 160/81 (107) Pulse Ox 98 O2 Delivery Room Air Capillary Refill : Less Than 3 Seconds Height, Weight, BMI Height: 5'4.00" Weight: 140lbs. 9.0oz. 63.672091my; 26.00 BMI Method:Stated General Appearance: WD/WN, no apparent distress Respiratory: no respiratory distress, no accessory muscle use Shoulder: normal inspection, non-tender Wrist: Yes normal inspection, Yes non-tender Hand: normal inspection, non-tender, Left Neurologic/Tendon: normal sensation, normal motor functions, normal tendon fun ctions Neurologic/Psychiatric: alert, normal mood/affect, oriented x 3 Skin: normal color, warm/dry Progress/Results/Core Measures Results/Orders My Orders Orders - JUSTIN MADRIGAL APRN Hydrocodone/Apap 5/325 Tablet (Lortab 5 (06/22/19 13:00) Hand, Left, 3 Views (06/22/19 12:50) Medications Given in ED Current Medications Medications Dose Ordered Sig/Tamara Route Start Time Stop Time Status Last Admin Dose Admin Acetaminophen/ Hydrocodone Bitart 1 tab ONCE ONCE PO 06/22/19 13:00 06/22/19 13:01 DC 06/22/19 13:08 1 TAB Vital Signs/I&O 06/22/19 12:42 Temp 37.0 Pulse 61 Resp 16 B/P (MAP) 160/81 (107) Pulse Ox 98 O2 Delivery Room Air Blood Pressure Mean: 107 Departure Impression Primary Impression: Contusion of thumb Qualified Codes: S60.011A - Contusion of right thumb without damage to nail, initial encounter Disposition: 01 HOME, SELF-CARE Condition: Stable Departure-Patient Inst. Decision time for Depature: 13:46 Referrals: AZAM MATTHEWS (PCP) Primary Care Physician JUSTO HOROWITZ DO (Family) Primary Care Physician Patient Instructions: Contusion (DC) Add. Discharge Instructions: 1. Ice pack to the thumb Tylenol and Motrin for pain control or the splint for the next week 2. Follow-up with your doctor next week. All discharge instructions reviewed with patient and/or family. Voiced understanding. JUSTIN MADRIGAL APRN Jun 22, 2019 12:52
[2019-06-22] MEDS ORDERED: HYDROcodone/APAP 5 MG/325 MG (LORTAB) TAB PO ONE (13:00)
--- NOTE | 2019-06-22 13:33 | Diagnostic Imaging Report ---
EXAMINATION: Left hand radiographs, 3 views. COMPARISON: May 25, 2007. HISTORY: 49-year-old female, injury to first digit. FINDINGS: There is a well-corticated ossification adjacent to the ulnar styloid compatible ossicle or prior injury or an accessory ossicle. There is no acute fracture. There is no subluxation or dislocation. There is no radiopaque foreign body. IMPRESSION: No acute bony abnormality of the left hand. Dictated by: Dictated on workstation # [id number]
[2019-06-22 13:58] VITALS: BP 160/81
== END 2019-06-22 13:58 | disposition home or self-care (01) ==
LOC: EDUNIT# 12:24 → ER 12:25
DX: S60.011A Contusion of right thumb without damage to nail, initial encounter (principal); J44.9 Chronic obstructive pulmonary disease, unspecified; K21.9 Gastro-esophageal reflux disease without esophagitis; F41.9 Anxiety disorder, unspecified; F32.9 Major depressive disorder, single episode, unspecified; B19.20 Unspecified viral hepatitis C without hepatic coma; F17.210 Nicotine dependence, cigarettes, uncomplicated; Z98.51 Tubal ligation status; Z90.710 Acquired absence of both cervix and uterus; Z95.9 Presence of cardiac and vascular implant and graft, unspecified; Z88.0 Allergy status to penicillin; Z88.6 Allergy status to analgesic agent; Z88.5 Allergy status to narcotic agent; Z88.8 Allergy status to other drugs, medicaments and biological substances; Z82.49 Family history of ischemic heart disease and other diseases of the circulatory system; W22.8XXA Striking against or struck by other objects, initial encounter
CPT/HCPCS: 29130; 73130

== ENCOUNTER → 2019-09-02 | Outpatient (CLI) | payer MEDICAID ==
--- NOTE | 2019-09-02 11:39 | Diagnostic Imaging Report ---
PROCEDURE: MRI lumbar spine. TECHNIQUE: Multiplanar, multisequence MRI of the lumbar spine was performed without contrast. INDICATION: Low back pain. Recent trouble standing straight. COMPARISON: None FINDINGS: 5 lumbar type vertebral bodies are visualized with the last well-formed disc space designated L5-S1. No acute fracture or dislocation is seen in the lumbar spine. There is left convexity curvature of the thoracolumbar spine. Vertebral heights and disc spaces are well-maintained. The bone marrow signal is normal. The conus terminates at the L1 level. No masses are seen associated with the conus or nerve roots of the cauda equina. No epidural collections are identified. 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 Mild degenerative changes are seen in the lumbar spine with disc bulges and facet hypertrophy. T12-L1: No significant spinal canal or foraminal stenosis. L1-L2: Small broad-based disc bulge and facet hypertrophy result in no significant spinal canal or foraminal stenosis. L2-L3: No significant spinal canal or foraminal stenosis. L3-L4: No significant spinal canal or foraminal stenosis. L4-L5: Broad-based disc bulge and facet hypertrophy results in no significant spinal canal narrowing and no significant foraminal narrowing. L5-S1: Broad-based disc bulge and facet hypertrophy result in no significant spinal canal or foraminal stenosis. Paravertebral soft tissues are unremarkable. IMPRESSION: 1. No acute fracture or dislocation in the lumbar spine. 2. Mild degenerative changes in the lumbar spine. No significant spinal canal or foraminal stenosis is visualized. Dictated by: Dictated on workstation # [id number]
== END ==
LOC: RAD 10:17
PROVIDERS: ATTEND Internal Medicine
DX: M47.26 Other spondylosis with radiculopathy, lumbar region (principal)
CPT/HCPCS: 72148

== ENCOUNTER 2019-11-09 06:43 | Day surgery (SDC) | payer MEDICAID ==
[~2019-11-09] VITALS: Ht 167 cm; Wt 66.8 kg
[2019-11-09] VITALS (12 sets, daily range): BP systolic 121–172; BP diastolic 63–100
[~2019-11-09 06:43] MED LIST changes: +HEParin (CATH LAB) 2,000 ML IV ONE; +LIDOCAINE 1% INJ 20 ML 20 ML VIAL ONE; -LISI1TAB10; +LISI1TAB26; +NS IV 1000 ML 1,000 ML ONE
[2019-11-09] MEDS ORDERED: NS IV 1000 ML 1,000 ML IV SCH ×2 (06:47→07:00)
[2019-11-09 07:16] LABS: HEMOGLOBIN 13.7 G/DL (11.5-16.0); MEAN PLATELET VOLUME 11.2 FL (7.4-10.4); RED CELL DISTRIBUTION WIDTH 13.1 % (10.0-14.5); WHITE BLOOD COUNT 7.2 10^3/uL (4.3-11.0)
[2019-11-09 07:17] LABS: BILIRUBIN,URINE NEGATIVE (NEGATIVE); CLARITY,URINE CLEAR; COLOR,URINE YELLOW; GLUCOSE, URINE (UA) NEGATIVE (NEGATIVE); KETONES,URINE NEGATIVE (NEGATIVE); LEUKOCYTE ESTERASE ,URINE 2+ (NEGATIVE); NITRITE,URINE NEGATIVE (NEGATIVE); PH,URINE 5.5 (5-9); PROTEIN,URINE NEGATIVE (NEGATIVE)
[2019-11-09] MEDS ORDERED: ROSU10TA22 PO (07:25)
[2019-11-09] MEDS ORDERED: METO-351 PO (07:25)
[2019-11-09 07:27] LABS: PROTHROMBIN TIME PATIENT 13.1 SEC (12.2-14.7)
[2019-11-09 07:29] LABS: BACTERIA,URINE MODERATE /HPF
[2019-11-09 07:36] LABS: ALANINE AMINOTRANSFERASE 11 U/L (0-55); ALBUMIN 4.3 GM/DL (3.2-4.5); ALKALINE PHOSPHATASE 96 U/L (40-136); BILIRUBIN,TOTAL 0.5 MG/DL (0.1-1.0); BUN/CREATININE RATIO 12; CALCIUM 9.4 MG/DL (8.5-10.1); CARBON DIOXIDE 22 MMOL/L (21-32); CHLORIDE 105 MMOL/L (98-107); CHOLESTEROL 196 MG/DL (< 200); CREATININE SERUM 0.81 MG/DL (0.60-1.30); GFR ESTIMATED > 60; GLUCOSE 90 MG/DL (70-105); HDL CHOLESTEROL 62 MG/DL (40-60); POTASSIUM 4.1 MMOL/L (3.6-5.0); SODIUM 139 MMOL/L (135-145); TOTAL PROTEIN 6.7 GM/DL (6.4-8.2); TRIGLYCERIDES 136 MG/DL (<150); VLDL CHOLESTEROL 27 MG/DL (5-40)
--- NOTE | 2019-11-09 07:47 | Diagnostic Imaging Report ---
CHEST 1 VIEW, AP/PA ONLY Indication: Preop assessment. Chest pain. Comparison: 04/09/2019 Findings: No focal airspace disease in the visualized lungs. Please note that the posterior lower lobes are poorly evaluated by portable radiography. No pleural effusion or pneumothorax. Normal cardiomediastinal silhouette. Impression: 1. No acute cardiopulmonary process by portable radiography. Dictated by: Dictated on workstation # [id number]
[2019-11-09] MEDS ORDERED: fentaNYL INJECTION 100 MCG/2 ML AMP ONE (08:10)
[2019-11-09] MEDS ORDERED: MIDAZOLAM 5 MG/5 ML (VERSED) VIAL ONE (08:10)
[2019-11-09] MEDS ORDERED: VERAPAMIL 5 MG/2 ML (CALAN) VIAL IV ONE (08:56)
[2019-11-09] MEDS ORDERED: NITRO DRIP 25000 MCG/D5W 250 ML IV ONE (08:56)
[2019-11-09] MEDS ORDERED: HEParin 1000 UNIT/ML (10ML VIAL) FOR BOLUS ONE (08:56)
--- NOTE | 2019-11-09 09:02 | Cardiac Procedure Note-CS/ASA ---
Pre-Procedure Note Pre-Op Procedure Note H&P Reviewed The H&P was reviewed, patient examined and no changes noted. Date H&P Reviewed: Nov 09, 2019 Time H&P Reviewed: 09:02 Conscious Sedation Pre-Proced Time 09:02 ASA Score 3 For ASA 3 and 4: Consider anesthesia and medical clearance. Also, for patients with a history of failed moderate sedation consider anesthesia. Airway Lungs Heart ASA score ASA 1: a normal healthy patient ASA 2: a patient with a mild systemic disease (mid diabetes, controlled hypertension, obesity x ASA 3: a patient with a severe systemic disease that limits activity (angina, COPD, prior Myocardial infarction) ASA 4: a patient with an incapacitating disease that is a constant threat to life (CHF, renal failure) ASA 5: a moribund patient not expected to survive 24 hrs. (ruptured aneurysm) ASA 6: a declared brain- patient whose organs are being harvested. For emergent operations, add the letter E after the classification Mallampati Classification Grade 3 Sedation Plan Analgesia, Amnesia, Plan communicated to team members, Discussed options with patient/fam, Discussed risks with patient/fam The patient is an appropriate candidate to undergo the planned procedure, sedation, and anesthesia. The patient immediately re-assessed prior to indication. ERROL MARCOS MD Nov 09, 2019 09:02
[2019-11-09] MEDS ORDERED: CLOPIDOGREL 300 MG (PLAVIX) TABLET PO ONE (09:28)
[2019-11-09] MEDS ORDERED: ASPIRIN 325 MG (5 GR) TABLET ONE (09:28)
--- NOTE | 2019-11-09 09:44 | Cardiac Cath Report ---
Cardiac Cath Report Physician (s)/Box Worker (s) Physician ERROL MARCOS MD Pre-Procedure Diagnosis Pre-Procedure Diagnosis: Coronary artery disease Post-Procedure Note Procedure Start Date: Nov 09, 2019 Name of Procedure: Left heart catheterization Stent to the right coronary artery Findings/Procedure Note PROCEDURE NOTE: 49 years old lady with history of hypertension, hyperlipidemia, tobaccoism, has been having recurrent chest pain, had multiple episode of significant chest pain, decided to proceed with cardiac catheterization possible PTCA. After explaining the procedure to the patient, all pros and cons were explained, all questions were answered. The patient signed the consent and then she was placed on the cardiac catheterization laboratory. Groin was prepped SL fashion local anesthesia was used. Sheath placed in the right radial artery, catheter was advanced and left ventricular cavity then left main and turned to the right coronary artery multiple angiogram were done, there was significant disease in the right coronary artery patient was having significant arm pain from the catheter I decided to proceed with intervention using the right groin. Patient was given a total of 6000 units of heparin, if our guide with sideholes was advanced to the right coronary artery, BMW wire was advanced in the right coronary artery, predilatation with 3 x 15 balloon and then deployment of Eliana 3.5 x 18 mm stent expanded to 3.66 mm at the proximal right coronary artery with excellent results. The radial and femoral sheaths were removed vascular band on the radial and Mynx on the femoral was done FINDINGS: Hemodynamics LV 123/12, end-diastolic pressure of 12 Aorta 135/76 mean of 84 ANATOMY: Left Main is free of obstructive disease Left Anterior Descending is tortuous with mild disease nonobstructive disease Left Circumflex is tortuous with mild disease nonobstructive disease Right Coronory Artery is large tortuous artery, severe stenosis at the proximal portion, successful balloon angioplasty then deployment of Eliana 3.5 x 18 millimeter expanded to 3.66 mm with excellent results LV Gram was done using normal left ventricular size and contractility is an ejection fraction 60 percent CONCLUSION: 1. Severe proximal right coronary artery successful stenting using Eliana 3.5 x 18 mm expanded to 3.66 mm with excellent results. 2. Mild disease in the left system 3. Normal left ventricular size and systolic function estimated ejection fraction 60 percent DISCUSSION AND RECOMMENDATION: Patient was loaded with aspirin and Plavix. Continue to maximize medical therapy. Anesthesia Type: Conscious Sedation Estimated blood loss (mL): 30 ml Contrast Amount: 121 ml Total Radiation Dose: 508 mGy Post-Procedure Diagnosis Post-operative diagnosis: Unstable angina Coronary artery disease Hypertension Hyperlipidemia ERROL MARCOS MD Nov 09, 2019 09:44
[2019-11-09] MEDS ORDERED: RT-ALBUTEROL SULF 2.5 MG/3 ML PRE-MIX VIAL INH PRN (09:45)
[2019-11-09] MEDS ORDERED: NON-FORMULARY MEDICATION 1 EA EA (Cetirizine HCl 10 MG) PO PRN (09:45)
[2019-11-09] MEDS ORDERED: RT-ALBUTEROL SULF 2.5 MG/3 ML PRE-MIX VIAL IH PRN (09:45)
[2019-11-09] MEDS ORDERED: PATIENT MAY USE OWN MEDS, ALL PO SCH (09:45)
[2019-11-09] MEDS: NS IV 1000 ML 1,000 ML IV SCH ×2 (10:00→19:51)
[2019-11-09] MEDS ORDERED: LORATADINE (CLARITIN) 10 MG TAB PO PRN (13:15)
[2019-11-09] MEDS: oxyCODONE/APAP 5/325MG (PERCOCET 5) TABLET PO PRN (13:33)
[2019-11-09] MEDS ORDERED: RT-ADVAIR HFA 115/21 MCG PER PUFF IH SCH (20:00)
[2019-11-09] MEDS ORDERED: ROSUVASTATIN 20 MG (CRESTOR) TABLET PO SCH (21:00)
[2019-11-09] MEDS ORDERED: NON-FORMULARY MEDICATION 1 EA EA (Budesonide/Formoterol Fumarate (Symbicort 160-4.5 Mcg In INH SCH (21:00)
[2019-11-10] VITALS: BP 153/83
[2019-11-10 04:00] VITALS: BP 172/89
[2019-11-10 04:15] LABS: HEMOGLOBIN 12.6 G/DL (11.5-16.0); MEAN PLATELET VOLUME 11.1 FL (7.4-10.4); WHITE BLOOD COUNT 6.7 10^3/uL (4.3-11.0)
[2019-11-10] MEDS: oxyCODONE/APAP 5/325MG (PERCOCET 5) TABLET PO PRN (04:26)
[2019-11-10 04:51] LABS: BUN/CREATININE RATIO 12; CALCIUM 9.1 MG/DL (8.5-10.1); CARBON DIOXIDE 23 MMOL/L (21-32); CHLORIDE 106 MMOL/L (98-107); CREATININE SERUM 0.82 MG/DL (0.60-1.30); GFR ESTIMATED > 60; GLUCOSE 102 MG/DL (70-105); POTASSIUM 4.4 MMOL/L (3.6-5.0); SODIUM 139 MMOL/L (135-145)
[2019-11-10] MEDS: NS IV 1000 ML 1,000 ML IV SCH (05:00)
--- NOTE | 2019-11-10 07:46 | Cardiology Progress Note ---
Subjective Date Seen by Provider: Nov 10, 2019 Time Seen by Provider: 07:45 Subjective/Events-last exam Patient is laying down in bed, feeling better, groin and wrist are healing well Review of Systems General: No Chills, No Night Sweats, No Fatigue, No Malaise, No Appetite, No Other HEENT: No Head Aches, No Visual Changes, No Eye Pain, No Ear Pain, No Dysphasia, No Sinus Congestion, No Post Nasal Drip, No Sore Throat, No Other Pulmonary: No Dyspnea, No Cough, No Pleuritic Chest Pain, No Other Cardiovascular: No: Chest Pain, Palpitations, Orthopnea, Paroxysmal Noc. Dyspnea, Edema, Lt Headedness, Other Objective-Cardiology Exam Last Set of Vital Signs Vital Signs 11/10/19 04:00 Temp 36.5 Pulse 54 Resp 16 B/P (MAP) 172/89 (116) Pulse Ox 97 O2 Delivery Room Air Capillary Refill : Less Than 3 Seconds I&O Intake and Output 11/09/19 23:59 Intake Total 1330 ml Balance 1330 ml Intake Oral 1330 ml # Voids 6 General: Alert, Oriented X3, Cooperative HEENT: Atraumatic, PERRLA Neck: Supple, No JVD, No Thyromegaly Lungs: Clear to Auscultation, Normal Air Movement Heart: Regular Rate, Normal S1, Normal S2, No Murmurs Abdomen: Normal Bowel Sounds, Soft, No Tenderness, No Hepatosplenomegaly, No Masses Extremities: No Clubbing, No Cyanosis, No Edema, Normal Pulses, No Tenderness/Swelling Skin: No Rashes, No Breakdown, No Significant Lesion Neuro: Normal Gait, Normal Speech, Strength at 5/5 X4 Ext, Normal Tone, Sensation Intact Psych/Mental Status: Mental Status NL, Mood NL Results Lab Laboratory Tests 11/10/19 04:00 A/P-Cardiology Admission Diagnosis Chest pain Coronary artery disease Hypertension Hyperlipidemia Assessment/Plan Chest pain resembling angina, feeling better. Continue to monitor Coronary artery disease status post stent to the right coronary artery with excellent results. 1. Severe proximal right coronary artery successful stenting using Eliana 3.5 x 18 mm expanded to 3.66 mm with excellent results. 2. Mild disease in the left system Hypertension, continue current medication Hyperlipidemia, continue current medication Tobaccoism, educated on smoking cessation ERROL MARCOS MD Nov 10, 2019 07:46
[2019-11-10] MEDS ORDERED: ASPI-983 PO (07:49)
[2019-11-10] MEDS ORDERED: ROSU20TA32 PO (07:49)
[2019-11-10] MEDS ORDERED: CLOP75TA28 PO (07:49)
--- NOTE | 2019-11-10 07:50 | Discharge Inst-Post CATH ---
Discharge Inst-CATH/EP Problems Reviewed?: Yes Post Cardiac Cath/EP D/C Inst Follow Up/Plan Appointment with Dr. MARCOS's office in 2-4 weeks <b>CARDIAC CATH/EP PROCEDURE DISCHARGE INSTRUCTIONS</b> ACTIVITY * Go Home directly and rest. * Limit activity of the leg (or wrist if it was used) for 7 days including aerobics, swimming, jogging, bicycling, etc. * Restrict stair-climbing for 7 days if possible, if not, climb up with your non-cath leg, then bring together on the same step. * Avoid lifting, pushing, pulling or excessive movement of the affected extremity for 7 days. * Customary sexual activity may be resumed after 2 days-use caution not to use a position that strains or causes pain to the affected extremity. * No driving for 24 hours. * NO SMOKING. * Avoid straining for bowel movements for 7 days. * Gentle walking on level ground is allowed. * Returning to work will depend on the type of procedure and the results. Your doctor will discuss this with you. CALL YOUR DOCTOR FOR ANY OF THE FOLLOWING: *If bleeding from the puncture site occurs- Apply gentle pressure to site with clean cloth and call your doctor or EMS. * If a knot or lump forms under the skin, increases in size, or causes pain. * If bruising appears to be worsening or moving further down your leg instead of disappearing. * Temperature above 101 F. CARE OF YOUR GROIN INCISION; * Bruising or purple discoloration of the skin near the puncture site is common. * You may shower only, no bathtub bathing for 5 days. Be careful to avoid slipping as your leg may feel stiff. * If a closure device was used on your femoral artery, please see the attached guide regarding care of the device and your leg. * Leave dressing on FOR 24 hours. CARE OF YOUR WRIST INCISION; * Bruising or purple discoloration of the skin near the puncture site is common. * You may shower. * DO NOT submerge wrist. * Leave dressing on FOR 24 hours. ERROL MARCOS MD Nov 10, 2019 07:50
[2019-11-10] MEDS ORDERED: VENlafaxine XR 75 MG (EFFEXOR XR) CAP PO SCH (08:00)
[2019-11-10] MEDS ORDERED: lisINopril 40 MG (PRINIVIL) TABLET PO SCH (09:00)
[2019-11-10] MEDS ORDERED: PANTOPRAZOLE 40 MG (PROTONIX) TAB PO SCH (09:00)
[2019-11-10] MEDS ORDERED: lisINopril 20 MG (PRINIVIL) TABLET PO SCH (09:00)
[2019-11-10] MEDS ORDERED: ASPIRIN E.C. 81 MG (ECOTRIN) TAB PO SCH (09:00)
[2019-11-10] MEDS ORDERED: CLOPIDOGREL 75 MG (PLAVIX) TABLET PO SCH (09:00)
[2019-11-10] MEDS ORDERED: MONTELUKAST 10 MG (SINGULAIR) TAB PO SCH (09:00)
== END 2019-11-10 09:00 | disposition home or self-care (01) ==
LOC: CATH 06:43 → ICU 10:00 → CSD 18:16 → CATH 11-10 09:00
PROVIDERS: ATTEND Internal Medicine Cardiovascular Disease
DX: I25.110 Atherosclerotic heart disease of native coronary artery with unstable angina pectoris (principal); I10 Essential (primary) hypertension; E78.5 Hyperlipidemia, unspecified; M19.90 Unspecified osteoarthritis, unspecified site; M50.30 Other cervical disc degeneration, unspecified cervical region; M48.02 Spinal stenosis, cervical region; K21.9 Gastro-esophageal reflux disease without esophagitis; J44.9 Chronic obstructive pulmonary disease, unspecified; F17.210 Nicotine dependence, cigarettes, uncomplicated; F32.9 Major depressive disorder, single episode, unspecified; F41.9 Anxiety disorder, unspecified; Z88.0 Allergy status to penicillin; Z88.5 Allergy status to narcotic agent; Z88.2 Allergy status to sulfonamides; Z88.6 Allergy status to analgesic agent; Z88.1 Allergy status to other antibiotic agents; Z80.9 Family history of malignant neoplasm, unspecified; Z83.6 Family history of other diseases of the respiratory system; Z82.3 Family history of stroke
CPT/HCPCS: 36415; 71045; 80048; 80053; 80061; 81000; 85027; 85610; 85730; 87077; 87081; 87088; 93005; 93458

== ENCOUNTER → 2020-04-19 | Outpatient (CLI) | payer MEDICAID ==
[~2020-04-19] MED LIST changes: +ASPI-983 PO; +CLOP75TA28 PO; -HEParin (CATH LAB) 2,000 ML IV ONE; -LIDOCAINE 1% INJ 20 ML 20 ML VIAL ONE; +METO-351 PO; +MONT10TA26 PO; -NS IV 1000 ML 1,000 ML ONE; +ROSU10TA22 PO; +ROSU20TA32 PO; -TRAZ-190 PO; +TRAZ-227 PO
== END ==
LOC: LABNPT 07:01
PROVIDERS: ATTEND Internal Medicine Cardiovascular Disease
DX: Z01.818 Encounter for other preprocedural examination (principal); Z53.9 Procedure and treatment not carried out, unspecified reason

== ENCOUNTER → 2020-10-26 | Outpatient (CLI) | payer MEDICAID ==
[~2020-10-26] MED LIST changes: +ASPI-1238 PO; -ASPI-983 PO; +CLN.1T PO; -CLON0.1T PO; -MONT10TA26 PO; +MONT10TA97 PO; -PANT40TA3 PO; +PANT40TA52 PO
== END ==
LOC: CARD 13:51
PROVIDERS: ATTEND Internal Medicine Cardiovascular Disease
DX: I10 Essential (primary) hypertension (principal); J44.9 Chronic obstructive pulmonary disease, unspecified; Z95.5 Presence of coronary angioplasty implant and graft
CPT/HCPCS: 93306

== ENCOUNTER → 2020-11-12 | Outpatient (CLI) | payer MEDICAID ==
[~2020-11-12] VITALS: Ht 165 cm; Wt 81.0 kg
[~2020-11-12] MED LIST changes: +CATHETER FLUSH 10 ML SYR IV PRN; -LISI40TA PO; +LISI40TA9 PO; +MONT10TA32 PO; -MONT10TA97 PO; -OXYC-471 PO; +OXYC1TAB11 PO; +REGADENOSON 0.4 MG/5 ML SYR (LEXISCAN) IV ONE
[2020-11-12 09:18] VITALS: BP 150/91
--- NOTE | 2020-11-12 16:27 | Cardiology Stress Test Report ---
Stress Test Report Date of Procedure/Referring: Date of Procedure: Nov 12, 2020 PCP Errol Castillo MD Admitting Physician Sean Matthew MD Indications: Coronary artery disease Baseline Heart Rate: 43 Baseline Blood Pressure: Blood Pressure Systolic: 150 Blood Pressure Diastolic: 91 Baseline Vitals Vital Signs Date Time Temp Pulse Resp B/P (MAP) Pulse Ox O2 Delivery O2 Flow Rate FiO2 11/12/20 09:18 44 150/91 (110) 98 Baseline EKG: Baseline EKG: sinus bradycardia Summary After explaining the procedure to the patient, she signed a consent and then brought to the stress nuclear laboratory. Patient received 0.4 mg Lexiscan for stress test, ECG, heart rate and blood pressure were monitored continuously. Resting and stress dose of radio tracer were injected, imaging was acquired and reviewed in short axis, horizontal long axis and vertical long axis views. TID: 1.12 SSS: 0 SDS: 0 EF: 66 1. Patient exercised for 2 minutes 24 seconds on Sandoval protocol, did not achieve her target heart rate, test was terminated and converted to Lexiscan Myoview stress test 2. Baseline sinus bradycardia persisted during test 3. Patient tolerated Lexiscan well 4. No significant ischemia or infarction on SPECT images 5. Normal left ventricular size, EF 66 percent ERROL CASTILLO MD Nov 12, 2020 16:27
== END ==
LOC: CARD 07:45
PROVIDERS: ATTEND Internal Medicine Cardiovascular Disease
DX: I10 Essential (primary) hypertension (principal); I25.10 Atherosclerotic heart disease of native coronary artery without angina pectoris
CPT/HCPCS: 78452; 93017; A9502

== ENCOUNTER → 2020-12-10 | Outpatient (CLI) | payer MEDICAID ==
[~2020-12-10] MED LIST changes: -CATHETER FLUSH 10 ML SYR IV PRN; -REGADENOSON 0.4 MG/5 ML SYR (LEXISCAN) IV ONE
== END ==
LOC: LABNPT 06:14
PROVIDERS: ATTEND Internal Medicine Cardiovascular Disease
DX: Z01.812 Encounter for preprocedural laboratory examination (principal); Z20.822 Contact with and (suspected) exposure to COVID-19

== ENCOUNTER → 2020-12-10 | Outpatient (CLI) | payer MEDICAID | LOC: LABNPT 06:23 | PROVIDERS: ATTEND Internal Medicine Cardiovascular Disease | DX: Z01.812 Encounter for preprocedural laboratory examination (principal); Z20.822 Contact with and (suspected) exposure to COVID-19 | CPT/HCPCS: 87635 ==

== ENCOUNTER 2020-12-12 19:51 | Outpatient (CLI) | payer MEDICAID | END 2020-12-13 06:25 | disposition home or self-care (01) | LOC: SLEEP 19:51 | PROVIDERS: ATTEND Internal Medicine Cardiovascular Disease | DX: G47.33 Obstructive sleep apnea (adult) (pediatric) (principal) | CPT/HCPCS: 95810 ==

== ENCOUNTER → 2021-01-10 | Outpatient (CLI) | payer MEDICAID ==
[~2021-01-10] MED LIST changes: +RT-ALBUTEROL SULF 2.5 MG/3 ML PRE-MIX VIAL INH ONE
== END ==
LOC: RT 12:51
PROVIDERS: ATTEND Nurse Practitioner Family
DX: J44.9 Chronic obstructive pulmonary disease, unspecified (principal)
CPT/HCPCS: 94060; 94726; 94729

== ENCOUNTER → 2021-03-01 | Outpatient (CLI) | payer MEDICAID ==
[~2021-03-01] MED LIST changes: -RT-ALBUTEROL SULF 2.5 MG/3 ML PRE-MIX VIAL INH ONE
--- NOTE | 2021-03-04 09:24 | Diagnostic Imaging Report ---
INDICATION: Routine screening. COMPARISON: 02/23/2019 and 02/26/2017. TECHNIQUE: 2D and 3D bilateral screening mammography was performed with CAD. FINDINGS: Scattered fibroglandular densities are identified bilaterally. The parenchymal pattern is stable. No mass or malignant appearing microcalcifications are seen. The axillae are unremarkable. IMPRESSION: No mammographic features suspicious for malignancy are identified. ACR BI-RADS Category 1: Negative. Result letter will be mailed to the patient. Note: At least 10% of breast cancer is not imaged by mammography. Dictated by: Dictated on workstation # [id number]
== END ==
LOC: RAD 13:45
PROVIDERS: ATTEND Nurse Practitioner Family
DX: Z12.31 Encounter for screening mammogram for malignant neoplasm of breast (principal)
CPT/HCPCS: 77063; 77067

== ENCOUNTER → 2021-12-06 | Outpatient (CLI) | payer MEDICAID ==
[~2021-12-06] MED LIST changes: +CYCL10TA25 PO; -CYCL10TA9 PO; -LISI1TAB26; +LISI1TAB48; +MONT-40 PO; -MONT10TA32 PO
== END ==
LOC: CARD 09:00
PROVIDERS: ATTEND Physician Assistant
DX: I35.1 Nonrheumatic aortic (valve) insufficiency (principal); I11.9 Hypertensive heart disease without heart failure
CPT/HCPCS: 93306

== ENCOUNTER → 2023-01-27 | Outpatient (CLI) | payer MEDICAID ==
[~2023-01-27] MED LIST changes: +ALBU8.5H6 INH; +NF-CRES10T PO; -ROSU10TA22 PO; -RT-ALBUINH INH; +RT-ALBUTEROL SULF 2.5 MG/3 ML PRE-MIX VIAL INH ONE; +TOPI-241 PO; -TOPI50TA13 PO
== END ==
LOC: RT 07:50
PROVIDERS: ATTEND Nurse Practitioner Family
DX: J44.9 Chronic obstructive pulmonary disease, unspecified (principal)
CPT/HCPCS: 94060; 94726; 94729